=== PATIENT | female | born 1945 | race Caucasian/White ===

== ENCOUNTER 2017-04-24 13:31 | Inpatient (IN) ==
--- NOTE | 2017-04-24 14:06 | Emergency Department Note ---
Chest Pain HPI - General Chief Complaint: Chest Pain Stated Complaint: chest pain Time Seen by Provider: 04/24/17 13:45 Source: patient Mode of arrival: ambulatory Limitations: no limitations - History of Present Illness HPI Narrative: 71-year-old female who is on dialysis had a chronic history of cough for the past 7 months. She has been referred to the respooler as well as computer typesetter that she has pulmonary fibrosis. Complaint is cough is been present for the last 7 months has been having some chest pain which increases with her cough from 1030 to 11:00 this morning. Is scheduled for dialysis at approximately 430 today. They have been pulling off extra fluid as she has had a history of CHF. She states the chest pain is sharp in nature does increase on palpation 1 hurts when one palpates the area. a [id number] history of tobacco - Related Data Home Medications Medication Instructions Recorded Confirmed acetaminophen 500 mg tablet 1,000 mg PO Q6H PRN tab 12/03/14 04/24/17 cholecalciferol (vitamin D3) 1,000 1,000 unit PO QDAY cap 12/03/14 04/24/17 unit capsule cyanocobalamin (vit B-12) ER 1,000 1,000 mcg PO QDAY tab 12/03/14 04/24/17 mcg tablet,extended release sevelamer carbonate 800 mg tablet 800 mg PO TIDAC 06/01/15 04/24/17 calcium acetate 667 mg capsule 667 mg PO TIDCC 30 Days #60 cap 09/09/15 04/24/17 simvastatin 20 mg tablet 20 mg PO HS 05/17/16 04/24/17 Aspirin [Lite Coat Aspirin] 325 mg PO DAILY 04/13/17 04/24/17 Clopidogrel Bisulfate [Plavix] 75 mg PO DAILY 04/13/17 04/24/17 Suvorexant [Belsomra] 10 mg PO HS PRN 04/13/17 04/24/17 Previous Rx's Medication Instructions Recorded fluoxetine 40 mg capsule 40 mg PO QDAY #90 cap 09/09/15 estradiol 0.5 mg tablet 0.5 mg PO QDAY #30 tab 11/01/15 trazodone 100 mg tablet 250 mg PO QHS 90 Days #225 tab 09/11/16 hydromorphone 2 mg tablet 2 mg PO Q8H PRN 10 Days #30 tab 10/27/16 Budesonide [Pulmicort] 0.5 mg NEB Q12 ampul.neb 04/20/17 HYDROmorphone HCL [Dilaudid] 2 mg PO Q8HP PRN #40 tab 04/20/17 Ipratropium/Albuterol [Duoneb] 3 ml NEB Q6H #1 ampul.neb 04/20/17 Pantoprazole [Protonix] 40 mg PO QHS #1 tab 04/20/17 guaiFENesin/DEXTROMETHORPHAN 10 ml PO Q4HP PRN ml 04/20/17 [Robitussin Dm] Allergies Allergy/AdvReac Type Severity Reaction Status Date / Time codeine Allergy Mild Hives Verified 04/20/17 15:47 Oxycodone Allergy Mild Rash Verified 04/20/17 15:47 NSAIDS (Non-Steroidal Allergy Unknown Unknown Verified 04/20/17 15:47 Anti-Inflamma meperidine [From Demerol] AdvReac Mild Itching Verified 04/20/17 15:47 Review of Systems All systems ED: reviewed and negative except as stated. Constitutional: Denies: fever, chills Eyes: Denies: eye pain ENT ED: Denies: ear pain Cardiovascular: Reports: chest pain. Denies: palpitations, dyspnea on exertion Respiratory: Denies: cough, hemoptysis Gastrointestinal: Denies: abdominal pain, nausea Genitourinary: Denies: urgency, dysuria Musculoskeletal: Denies: back pain Integumentary: Denies: rash Neurological: Denies: headache Psychiatric: Denies: anxiety Endocrine: Denies: fatigue Hematological/Lymphatic: Denies: easy bleeding Allergic/Immunologic: Denies: facial swelling Chest Pain PMH - Past Medical History Medical history: Reports: COPD, coronary artery disease, migraine, other (Sleep apnea itching, coronary artery disease, CKD with dialysis, hypertension migraines) Surgical history ED: Reports: JOSE/BSO, tonsillectomy, other (AV fistula small bowel resection) Family history: Reports: other (diabetes fathwer mother hypertension cad) - Social History smoking status: Former smoker (0 pack year hx) Alcohol use: Reports: Rarely Drug use: Reports: none Physical Exam Limitations: no limitations General appearance: alert, anxious Head: atraumatic, normocephalic Eye: Present: normal appearance, PERRL ENT: normal exam, normal oropharynx Neck: Present: normal inspection, full ROM, tenderness (tender on palpation). Absent: trachea midline Chest: Present: normal inspection, symmetric chest wall rise. Absent: tenderness Respiratory: Present: normal lung sounds bilaterally. Absent: respiratory distress, wheezes Cardiovascular: Present: regular rate, normal rhythm. Absent: bradycardia Abdominal: Present: soft, distention, normal bowel sounds. Absent: tenderness, guarding, rebound, rigidity Extremities: Present: normal inspection, full ROM. Absent: tenderness Back: Present: normal inspection, full ROM. Absent: tenderness Neurological: Present: alert, oriented X3, CN II-XII intact Psychiatric: Present: normal affect, normal mood Skin: Present: warm, dry Course Vital Signs Temperature 98.2 F 04/24/17 13:32 Pulse Rate 67 04/24/17 13:32 Respiratory Rate 18 04/24/17 13:32 Blood Pressure 109/77 04/24/17 13:32 Pulse Oximetry (%) 99 04/24/17 13:32 Temperature 98.2 F 04/24/17 13:32 Pulse Rate 66 04/24/17 16:31 Respiratory Rate 21 04/24/17 16:31 Blood Pressure 104/65 04/24/17 16:31 Pulse Oximetry (%) 97 04/24/17 16:31 Chest Pain - MDM Narrative Medical decision making narrative: X-rays reveal bilateral infiltrate. COMPATABLE with pneumonia as read by Dr. Hernandez. dr hammer consulted and dr almanza. pt admitted by Dr Almanza with inpatient dialysis. - Lab Data Result diagrams: 04/24/17 14:42 04/24/17 14:51 Lab Results 04/24/17 04/24/17 04/24/17 Range/Units 14:33 14:34 14:34 WBC (4.5-11.0) K/mcL RBC (4.00-5.20) M/mcL Hgb (12.0-15.0) g/dL Hct (36.0-48.0) % MCV (80.0-100.0) fL MCH (26.0-34.0) pg MCHC (31.0-36.0) g/dL RDW (11.5-14.5) % Plt Count (140-440) K/mcL MPV (7.4-10.4) fL Gran % (38.0-78.0) % Lymph % (Auto) (15.5-49.0) % Carson % (Auto) (1.0-12.0) % Eos % (Auto) (0.0-7.0) % Baso % (Auto) (0.0-2.0) % Gran # (1.8-8.0) K/mcL Lymph # (Auto) (1.5-4.8) K/mcL Carson # (Auto) (0.1-0.9) K/mcL Eos # (Auto) (0.0-0.7) K/mcL Baso # (Auto) (0.0-0.3) K/mcL Total Counted Seg Neutrophils % (38-78) % Band Neutrophils % (0-10) % Lymphocytes % (15-49) % Monocytes % (Manual) (1-12) % Eosinophils % (Manual) (0-7) % Basophils % (Manual) (0-2) % Platelet Estimate (NORMAL) RBC Morphology (NORMAL) Anisocytosis (NONE SEEN) Macrocytosis (NONE SEEN) VBG Lactic Acid 0.9 (0.5-2.2) mmol/L Sodium Not Reportable Potassium Not Reportable Chloride Not Reportable Carbon Dioxide Not Reportable Anion Gap Not Reportable BUN Not Reportable Creatinine Not Reportable GFR Calculation Not Reportable Glucose Not Reportable Calcium Not Reportable Total Bilirubin Not Reportable AST Not Reportable ALT Not Reportable Alkaline Phosphatase Not Reportable Total Creatine Kinase Not Reportable CK-MB (CK-2) Not Reportable Myoglobin Not Reportable Troponin T TNP NT-Pro-B Natriuret Pep Not Reportable Total Protein Not Reportable Albumin Not Reportable Globulin Not Reportable Albumin/Globulin Ratio Not Reportable TSH Not Reportable 04/24/17 04/24/17 04/24/17 Range/Units 14:42 14:42 14:51 WBC 11.2 H (4.5-11.0) K/mcL RBC 3.84 L (4.00-5.20) M/mcL Hgb 12.9 (12.0-15.0) g/dL Hct 39.3 (36.0-48.0) % MCV 102.2 H (80.0-100.0) fL MCH 33.6 (26.0-34.0) pg MCHC 32.9 (31.0-36.0) g/dL RDW 19.9 H (11.5-14.5) % Plt Count 153 (140-440) K/mcL MPV 10.8 H (7.4-10.4) fL Gran % 72.2 (38.0-78.0) % Lymph % (Auto) 12.1 L (15.5-49.0) % Carson % (Auto) 13.6 H (1.0-12.0) % Eos % (Auto) 1.3 (0.0-7.0) % Baso % (Auto) 0.8 (0.0-2.0) % Gran # 8.1 H (1.8-8.0) K/mcL Lymph # (Auto) 1.4 L (1.5-4.8) K/mcL Carson # (Auto) 1.5 H (0.1-0.9) K/mcL Eos # (Auto) 0.1 (0.0-0.7) K/mcL Baso # (Auto) 0.1 (0.0-0.3) K/mcL Total Counted 100 Seg Neutrophils % 76 (38-78) % Band Neutrophils % 1 (0-10) % Lymphocytes % 10 L (15-49) % Monocytes % (Manual) 10 (1-12) % Eosinophils % (Manual) 1 (0-7) % Basophils % (Manual) 2 (0-2) % Platelet Estimate Normal (NORMAL) RBC Morphology Abnorm A (NORMAL) Anisocytosis 1+ A (NONE SEEN) Macrocytosis 1+ A (NONE SEEN) VBG Lactic Acid (0.5-2.2) mmol/L Sodium 132 L Potassium 5.4 H Chloride 85 L Carbon Dioxide 22 Anion Gap 25.0 H BUN 64 H Creatinine 7.2 H* GFR Calculation 5 Glucose 109 H Calcium 9.8 Total Bilirubin 0.4 AST 11 ALT 9 Alkaline Phosphatase 92 Total Creatine Kinase 13 L CK-MB (CK-2) 2.8 Myoglobin 95 H Troponin T NT-Pro-B Natriuret Pep 4122.0 H Total Protein 7.4 Albumin 3.9 Globulin 3.5 Albumin/Globulin Ratio 1.1 TSH 2.12 04/24/17 Range/Units 14:51 WBC (4.5-11.0) K/mcL RBC (4.00-5.20) M/mcL Hgb (12.0-15.0) g/dL Hct (36.0-48.0) % MCV (80.0-100.0) fL MCH (26.0-34.0) pg MCHC (31.0-36.0) g/dL RDW (11.5-14.5) % Plt Count (140-440) K/mcL MPV (7.4-10.4) fL Gran % (38.0-78.0) % Lymph % (Auto) (15.5-49.0) % Carson % (Auto) (1.0-12.0) % Eos % (Auto) (0.0-7.0) % Baso % (Auto) (0.0-2.0) % Gran # (1.8-8.0) K/mcL Lymph # (Auto) (1.5-4.8) K/mcL Carson # (Auto) (0.1-0.9) K/mcL Eos # (Auto) (0.0-0.7) K/mcL Baso # (Auto) (0.0-0.3) K/mcL Total Counted Seg Neutrophils % (38-78) % Band Neutrophils % (0-10) % Lymphocytes % (15-49) % Monocytes % (Manual) (1-12) % Eosinophils % (Manual) (0-7) % Basophils % (Manual) (0-2) % Platelet Estimate (NORMAL) RBC Morphology (NORMAL) Anisocytosis (NONE SEEN) Macrocytosis (NONE SEEN) VBG Lactic Acid (0.5-2.2) mmol/L Sodium Potassium Chloride Carbon Dioxide Anion Gap BUN Creatinine GFR Calculation Glucose Calcium Total Bilirubin AST ALT Alkaline Phosphatase Total Creatine Kinase CK-MB (CK-2) Myoglobin Troponin T 0.06 H* NT-Pro-B Natriuret Pep Total Protein Albumin Globulin Albumin/Globulin Ratio TSH Disposition Pt seen by AIRCRAFT BODY REPAIRER/PA only: No Clinical Impression: Pneumonia Qualifiers: Laterality: bilateral Lung location: lower lobe of lung Disposition: Xfer As Inpt ([facility]) Condition: Fair Referrals: Maribel Jaimes, ALEXANDR, SENIOR ACCOUNT EXECUTIVE [Primary Care Provider] - Time of Disposition: 17:06
--- NOTE | 2017-04-24 14:11 | XRay Report ---
INDICATION: Chest pain TECHNIQUE: AP chest x-ray,portable semierect COMPARISON: Chest x-rays dated 04/16/2017, 04/13/2017, 04/06/2017 FINDINGS:Previous reverse shoulder arthroplasty Mildly elevated right hemidiaphragm. This is unchanged. Bilateral, bibasilar infiltrates. Appearance is consistent with pneumonia. Follow-up PA and lateral chest x-rays recommended. Upper lungs are negative. Heart size and vascularity are normal. No pulmonary edema. No pulmonary congestion. Incidental note is made of barium within the colon. Patient underwent a barium swallow on 04/18/2017 IMPRESSION: 1. Mild bibasilar infiltrates consistent with pneumonia. Follow-up PA and lateral chest x-rays recommended 2. Mildly elevated right hemidiaphragm, chronic Interpreted and Authenticated by: Fortino Hernandez 04/24/17
[2017-04-24] MEDS ORDERED: LEVOFLOXACIN 500 MG/100 ML BAG IV ONE (14:43)
[2017-04-24] MEDS ORDERED: cefTRIAXone 1 GM VIAL IV SCH (14:45)
[2017-04-24 15:39] LABS: Basophils # (Auto) 0.1 K/mcL (0.0-0.3); Basophils % (Auto) 0.8 % (0.0-2.0); Eosinophils # (Auto) 0.1 K/mcL (0.0-0.7); Eosinophils % (Auto) 1.3 % (0.0-7.0); Granulocytes % (Auto) 72.2 % (38.0-78.0); Lymphocytes # (Auto) 1.4 K/mcL (1.5-4.8); Lymphocytes % (Auto) 12.1 % (15.5-49.0); Mean Cell Volume 102.2 fL (80.0-100.0); Mean Corpuscular HGB Conc 32.9 g/dL (31.0-36.0); Mean Corpuscular Hemoglobin 33.6 pg (26.0-34.0); Monocytes # (Auto) 1.5 K/mcL (0.1-0.9); Monocytes % (Auto) 13.6 % (1.0-12.0); Platelet Count 153 K/mcL (140-440); RBC 3.84 M/mcL (4.00-5.20); Red Cell Distribution Width 19.9 % (11.5-14.5)
[2017-04-24 16:09] LABS: Creatine Kinase MB 2.8 ng/ml (0-2.9); Myoglobin 95 ng/ml (25-58)
[2017-04-24 16:14] LABS: Anisocytosis 1+ (NONE SEEN); Band Neutrophils % 1 % (0-10); Basophils % (Manual) 2 % (0-2); Eosinophils % (Manual) 1 % (0-7); Lymphocytes % 10 % (15-49); Macrocytosis 1+ (NONE SEEN); Monocytes % (Manual) 10 % (1-12); Platelet Estimate NORMAL (NORMAL); RBC Morphology ABNORM (NORMAL); Segmented Neutrophils % 76 % (38-78)
[2017-04-24 16:23] LABS: ALT/SGPT 9 U/l (0-40); Albumin 3.9 gm/dL (3.2-5.2); Albumin/Globulin Ratio 1.1 (1.0-2.3); Alkaline Phosphatase 92 U/L (39-117); Blood Urea Nitrogen 64 mg/dl (8-23); Creatine Kinase 13 IU/L (24-170)
--- NOTE | 2017-04-24 16:58 | XRay Report ---
INDICATION: Abnormal chest x-ray TECHNIQUE: PA and lateral upright chest x-ray COMPARISON: Previous AP portable chest x-ray dated 04/24/2017. Previous PA and lateral chest x-ray dated 04/16/2017 FINDINGS:Persistent elevation right hemidiaphragm. Bilateral lower lobe parenchymal density. Appearance is consistent with pneumonia. Follow-up radiographs recommended to document resolution. Mid and upper lungs are negative. Heart size and vascularity are normal. No pulmonary edema or pulmonary congestion. No significant pleural effusion. IMPRESSION: Bilateral lower lobe volume loss or infiltrate. Appearance is consistent with pneumonia. Interpreted and Authenticated by: Fortino Hernandez 04/24/17
--- NOTE | 2017-04-24 17:51 | Internal Med History&Physical ---
Medical - H&P: HPI Patient information: Note initiated : 04/24/17 at 5:43 pm Service Date, if different from initiated Date: [] Patient: Naz Joseph 71 y/o F admitted on for Chest pain. Chief Complaint: [] History of present illness: Ms. Joseph is a 71 year old Female with esrd, on hd, with chr cough, presents to the er today from rehab with complaints of chest pain which started approx 11 am, no triggering factor, pain retrosternal, sharp, severe, non radiating, associated with some nausea, but no other complaints. She has chr cough going on for last 7 months and is following with pulmonary . The patient was recently admitted to the hospital for chf exacerbation and fluid removal. It was thought that her cough is related to her aspiration. She was advised to See GI it seems. The patient otherwise has no other issues, notes it was very uncomfortable due to the chest pain which was easing by the time I evaluated her. The patient lab showed mild leucocytosis, CXR shows bibasilar pna, cxr does not show any congestion. Patient labs show some low sodium and K of 5.4, EKG shows sinus rhythm, poor r wave progression, possible YONNY, t wave flattening in inf lat leads. She was admitted to the hospital with diagnosis of HCAP Pneumonia. All systems: reviewed and no additional remarkable complaints except as stated ( as per HPI) Medical - H&P: PMH Medical history: Medical History (Last Reviewed 04/20/17 @ 16:11 by Rodrigo Coleman MD) Fluid overload (Acute) Pneumonia (Acute) Aspiration into airway (Chronic) Pulmonary fibrosis (Chronic) Aortic valve sclerosis (Chronic) Fatigue (Acute) Weakness (Acute) Dyspnea (Acute) COPD (chronic obstructive pulmonary disease) (Chronic) Cough (Chronic) Obstructive sleep apnea (Chronic) Fracture, femur neck (Resolved 09/24/15) Hematoma and contusion (Resolved) Muscle cramps (Resolved) Cyst of Bartholin's gland duct (Resolved) Hemorrhage of arteriovenous fistula (Resolved) Hematoma (Chronic) Pericarditis (Chronic) Hypertension (Chronic) Chest pain (Chronic) Coronary artery disease involving [place] coronary artery (Chronic) Dependence on renal dialysis (Chronic) End stage renal disease (Chronic) History of echocardiogram (Chronic 06/04/15) Pericardial effusion (Chronic) Insomnia (Chronic) Vitamin B 12 deficiency (Chronic) Venous insufficiency (Chronic 01/13/14) UTI (urinary tract infection) (Chronic) Tobacco use (Resolved) 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) Rotator cuff tear (Chronic 04/09/14) Rotator cuff arthropathy (Chronic 04/09/14) Renal insufficiency (Chronic 11/03/14) Renal failure (Chronic) Proteinuria (Chronic 07/14/13) Osteoporosis (Chronic) Osteoarthritis (Chronic 10/07/04) Obstructive uropathy (Chronic 11/10/14) Nephrolithiasis (Chronic 07/14/13) Systolic murmur (Chronic) Migraine (Chronic) Metabolic acidosis (Chronic 07/14/13) Joint pain (Chronic) Impaired fasting glucose (Chronic) Hypertensive renal disease (Chronic 07/14/13) Hypertension, essential (Chronic) Hemorrhoids, internal (Chronic 11/03/13) Gout (Chronic 07/14/13) Fibromyalgia (Chronic) Edema (Chronic 11/19/14) Diarrhea (Chronic) Depression (Chronic) Degenerative arthritis (Chronic) Deep vein thrombosis (Chronic) Chronic kidney disease, stage IV (severe) (Chronic 07/14/13) Carpal tunnel syndrome (Chronic) Bone spur (Chronic 11/12/02) Anxiety (Chronic) Blood clot associated with vein wall inflammation (Resolved) Fecal incontinence (Resolved 09/19/13) Tendonitis (Resolved 09/08/12) Surgical history: Past Surgical History (Last Reviewed 04/20/17 @ 16:11 by Rodrigo Coleman MD) Arteriovenous fistula, acquired (Chronic) History of bariatric surgery (Chronic) History of resection of small bowel (Chronic 03/23/15) History of lithotripsy (Acute 09/21/15) History of gastrointestinal surgery (Chronic) History of rectal surgery (Chronic) History of surgery (Chronic) Hx of appendectomy (Chronic) Hx of cataract surgery (Chronic) Hx of shoulder surgery (Chronic) Hx of tonsillectomy (Chronic) S/P JOSE-BSO (Chronic) S/P nerve repair (Chronic) History of abdominal surgery (Resolved 11/03/14) History of adenoidectomy (Resolved) History of cataract surgery (Resolved) History of colonoscopy (Resolved 11/03/13) History of cystoscopy (Resolved 04/20/11) History of hammer toe correction (Resolved) History of hemorrhoidectomy (Resolved) History of hysterectomy (Resolved) History of intravenous pyelogram (Resolved 05/19/11) History of lithotripsy (Resolved 01/12/09) History of oophorectomy (Resolved) History of tonsillectomy (Resolved) History of ureter repair (Resolved 09/02/12) History of ureter stent (Resolved 11/29/08) Status post bunionectomy (Resolved) Pertinent family history: Family History (Last Reviewed 04/20/17 @ 16:11 by Rodrigo Coleman MD) Father Hemorrhage due to ruptured congenital cerebral aneurysm Type 2 diabetes mellitus Family history of diabetes mellitus Family history of arthritis Essential hypertension Cerebrovascular accident Sister Type 2 diabetes mellitus Mother Family history of arthritis Essential hypertension Acute myocardial infarction Unknown Family history of coronary artery disease Osteoporosis Medical - H&P: Meds Home Medications Medication Instructions Recorded Confirmed Type acetaminophen 500 mg tablet 1,000 mg PO Q6H PRN tab 12/03/14 04/24/17 History cholecalciferol (vitamin D3) 1,000 1,000 unit PO QDAY cap 12/03/14 04/24/17 History unit capsule cyanocobalamin (vit B-12) ER 1,000 1,000 mcg PO QDAY tab 12/03/14 04/24/17 History mcg tablet,extended release sevelamer carbonate 800 mg tablet 800 mg PO TIDAC 06/01/15 04/24/17 History calcium acetate 667 mg capsule 667 mg PO TIDCC 30 Days #60 cap 09/09/15 History fluoxetine 40 mg capsule 40 mg PO QDAY #90 cap 09/09/15 04/24/17 Rx estradiol 0.5 mg tablet 0.5 mg PO QDAY #30 tab 11/01/15 04/24/17 Rx simvastatin 20 mg tablet 20 mg PO HS 05/17/16 04/24/17 History trazodone 100 mg tablet 250 mg PO QHS 90 Days #225 tab 09/11/16 04/24/17 Rx hydromorphone 2 mg tablet 2 mg PO Q8H PRN 10 Days #30 tab 10/27/16 04/24/17 Rx Aspirin [Lite Coat Aspirin] 325 mg PO DAILY 04/13/17 04/24/17 History Clopidogrel Bisulfate [Plavix] 75 mg PO DAILY 04/13/17 04/24/17 History Suvorexant [Belsomra] 10 mg PO HS PRN 04/13/17 04/24/17 History Budesonide [Pulmicort] 0.5 mg NEB Q12 ampul.neb 04/20/17 04/24/17 Rx HYDROmorphone HCL [Dilaudid] 2 mg PO Q8HP PRN #40 tab 04/20/17 04/24/17 Rx Ipratropium/Albuterol [Duoneb] 3 ml NEB Q6H #1 ampul.neb 04/20/17 04/24/17 Rx Pantoprazole [Protonix] 40 mg PO QHS #1 tab 04/20/17 04/24/17 Rx guaiFENesin/DEXTROMETHORPHAN 10 ml PO Q4HP PRN ml 04/20/17 04/24/17 Rx [Robitussin Dm] Allergies Allergy/AdvReac Type Severity Reaction Status Date / Time codeine Allergy Mild Hives Verified 04/20/17 15:47 Oxycodone Allergy Mild Rash Verified 04/20/17 15:47 NSAIDS (Non-Steroidal Allergy Unknown Unknown Verified 04/20/17 15:47 Anti-Inflamma meperidine [From Demerol] AdvReac Mild Itching Verified 04/20/17 15:47 Medical - H&P: Exam - Constitutional Vitals: Temp Pulse Resp BP Pulse Ox 98.2 F 66 21 104/65 97 04/24/17 13:32 04/24/17 16:31 04/24/17 16:31 04/24/17 16:31 04/24/17 16:31 Exam: GENERAL: The patient is a well-developed, well-nourished in no apparent distress. Is alert and oriented x3. VITAL SIGNS: Reviewed and as noted elsewhere. HEENT: Head is normocephalic and atraumatic. Extraocular muscles are intact. Pupils are equal, round, and reactive to light. Nares appeared normal. Mouth appears any without lesions. Mucous membranes are moist. NECK: Normal to inspection, Supple, No lymphadenopathy or thyromegaly. LUNGS: Air entry equal on both sides, zack prolonged exp phase, zack coarse breath sounds no crackles. No accessory muscles of respiration HEART: Regular rate and rhythm normal, S1 and S2 heard, no Gallop, S3 or Rub Noted, No Gross murmur heard. distant heart sounds ABDOMEN: Soft, nontender, and nondistended. Positive bowel sounds. No hepatosplenomegaly was noted. EXTREMITIES: No cyanosis, clubbing, rash, lesions , edema ++ NEUROLOGIC: Cranial nerves II through XII are grossly intact. Motor and Sensory System Grossly Intact PSYCHIATRIC: Normal affect, Normal Mood. Appropriate Behavior. SKIN: No ulceration or wounds noted, No jaundice, No rash noted. Medical - H&P: Reslt - Labs CBC & Chem 7: 04/24/17 14:42 04/24/17 14:51 Labs: Short CBC 04/24/17 Range/Units 14:42 WBC 11.2 H (4.5-11.0) K/mcL Hgb 12.9 (12.0-15.0) g/dL Hct 39.3 (36.0-48.0) % Plt Count 153 (140-440) K/mcL BMP 04/24/17 04/24/17 14:34 14:51 Sodium Not Reportable 132 L Potassium Not Reportable 5.4 H Chloride Not Reportable 85 L Carbon Dioxide Not Reportable 22 BUN Not Reportable 64 H Creatinine Not Reportable 7.2 H* Glucose Not Reportable 109 H Calcium Not Reportable 9.8 Cardiac Enzymes 04/24/17 04/24/17 04/24/17 Range/Units 14:34 14:34 14:51 Total Creatine Kinase Not Reportable 13 L CK-MB (CK-2) Not Reportable 2.8 Troponin T TNP 04/24/17 Range/Units 14:51 Total Creatine Kinase CK-MB (CK-2) Troponin T 0.06 H* Liver Function 04/24/17 04/24/17 Range/Units 14:34 14:51 Total Bilirubin Not Reportable 0.4 AST Not Reportable 11 ALT Not Reportable 9 Alkaline Phosphatase Not Reportable 92 Albumin Not Reportable 3.9 Medical - H&P: A/P - Narrative A/P Narrative: A/P health care acquired Pneumonia ESRd h/o mild Pericardial Effusion Restrictive Lung disease Chronic Cough Adrenal Mass Fibromyaltia B12 def Muscle Cramps Hyperkalemia Plan Admit to floor IV vanco, cefepime and flagyl for health care pna, flagyl added for possible aspiration patient to get HD in AM, Treat elevated K with one dose of kayexalate REsume home dosing of duonebs, and budesonide on pantoprazole continue same repeat troponin in AM, for chest pain, she has chronically elevated troponin. She has neg cardiac workup around 6 months ago, so chest pain from cardiac etiology is unlikely Resume home meds as tolerated Nephrology consulted dvt enoxaparin, scd diet renal DNR code status. Social History - Social History household members: spouse housing: house marital status: occupational status: retired - Dietary Habits well-balanced diet: daily or most days during the past year weight has: remained stable - Exercise physical activity: none - Tobacco smoking status: Former smoker (0 pack year hx) - Quit Details quit date: 06/18/04 pack-years: 40 - Alcohol alcohol intake frequency: does not drink - Substance use substance use type: does not use - Home Safety working smoke detector in home: Yes
[2017-04-24] MEDS ORDERED: metroNIDAZOLE 500 MG/100 ML BAG IV SCH (18:00)
[2017-04-24] MEDS ORDERED: ONDANSETRON 4 MG/2 ML VIAL IV PRN (18:46)
[2017-04-24] MEDS ORDERED: MAGNESIUM HYDROXIDE 30 ML ORAL.SUSP PO PRN (18:46)
[2017-04-24] MEDS ORDERED: guaiFENesin/DEXTROMETHORPHAN ORAL SOL PO PRN (18:46)
[2017-04-24] MEDS ORDERED: VANCOMYCIN 1,500 MG in 0.9 % SODIUM CHLORIDE 500 ML IV ONE (18:46)
[2017-04-24] MEDS ORDERED: ACETAMINOPHEN 325 MG TABLET PO PRN (18:46)
[2017-04-24] MEDS ORDERED: VANCOMYCIN PER PHARMACY IV SCH (18:46)
[2017-04-24] MEDS ORDERED: NALOXONE HCL 0.4 MG/ML VIAL IV PRN (18:46)
[2017-04-24] MEDS ORDERED: SODIUM POLYSTYRENE SULFONATE 15 GM/60 ML SUSPENSION PO ONE (18:46)
[2017-04-24] MEDS ORDERED: Suvorexant [Belsomra] 10 MG PO PRN (19:15)
[2017-04-24] MEDS ORDERED: VANCOMYCIN 500 MG VIAL ONE (19:19)
[2017-04-24] MEDS: CEFEPIME 1 GM VIAL IV SCH (19:38)
[2017-04-24] MEDS: PANTOPRAZOLE 40 MG TABLET PO SCH (19:39)
[2017-04-24] MEDS: SIMVASTATIN 20 MG TABLET PO SCH (19:39)
[2017-04-24] MEDS: DOCUSATE SODIUM 100 MG CAPSULE PO SCH (19:39)
[2017-04-24] MEDS: IPRATROPIUM/ALBUTEROL 3 ML AMPUL.NEB NEB SCH ×2 (20:02→23:18)
[2017-04-24] MEDS: BUDESONIDE 0.5 MG/2 ML AMPUL.NEB NEB SCH (20:02)
--- NOTE | 2017-04-24 20:43 | Nephrology Consult Note ---
History of Present Illness - Reason for Consult Patient information: Note initiated : 04/24/17 at 8:39 pm Service Date, if different from initiated Date: [] Patient: Naz Joseph a 71 y/o F admitted on 04/24/17 for Chest pain. Chief Complaint: [] Consult date: 04/24/17 end stage renal disease Requesting physician: Hiram Galvin - Chief Complaint chest pain - History of Present Illness Ms Joseph is a 71 y/o pleasant white female with PMH of HTN, ESRD on HD, and other medical issues who presented to the ED today with c/o retrosternal CP. Patient was diagnosed with PNA on her CXR and hence she is been hospitalised for HCAP pneumonia Patient has h/o recent hospitalisation for fluid overload, chronic cough Her fluid status improved daily dialysis. Her chronic cough was thought be sec to aspiration. She was discharged to a SNF for rehab and she was doing fine until this afternoon when she started having severe retrosternal CP associated with nausea and feeling of profound weakness. She denies fever, chills. She denies any change in the nature of her cough or phlegm No diarrhea No dizziness No LE swelling Patient gets her dialysis TTS, she was due to come to her routine outpatient dialysis today Review of Systems All systems PM: reviewed and no additional remarkable complaints except as stated (in HPI) Past History Past medical history: esrd ON hd anemia OF ckd Renal osteodystrophy severe osteoporosis nephrolithiasis COPD chronic cough h/o pericardial effusion Past surgical history: h/o gastric bypass, then needed reversal h/o AVF h/o TCC Lithotripsy h/o hysterectomy/oopherectomy h/o appendectomy h/o cardiac cath Past family history: not pertinent to this admission Past social history: lives with her ex smoker, currently no addictions Medications and Allergies Home Medications Medication Instructions Recorded Confirmed Type acetaminophen 500 mg tablet 1,000 mg PO Q6H PRN tab 12/03/14 04/24/17 History cholecalciferol (vitamin D3) 1,000 1,000 unit PO QDAY cap 12/03/14 04/24/17 History unit capsule cyanocobalamin (vit B-12) ER 1,000 1,000 mcg PO QDAY tab 12/03/14 04/24/17 History mcg tablet,extended release sevelamer carbonate 800 mg tablet 800 mg PO TIDAC 06/01/15 04/24/17 History calcium acetate 667 mg capsule 667 mg PO TIDCC 30 Days #60 cap 09/09/15 History fluoxetine 40 mg capsule 40 mg PO QDAY #90 cap 09/09/15 04/24/17 Rx estradiol 0.5 mg tablet 0.5 mg PO QDAY #30 tab 11/01/15 04/24/17 Rx simvastatin 20 mg tablet 20 mg PO HS 05/17/16 04/24/17 History trazodone 100 mg tablet 250 mg PO QHS 90 Days #225 tab 09/11/16 04/24/17 Rx hydromorphone 2 mg tablet 2 mg PO Q8H PRN 10 Days #30 tab 10/27/16 04/24/17 Rx Aspirin [Lite Coat Aspirin] 325 mg PO DAILY 04/13/17 04/24/17 History Clopidogrel Bisulfate [Plavix] 75 mg PO DAILY 04/13/17 04/24/17 History Budesonide [Pulmicort] 0.5 mg NEB Q12 ampul.neb 04/20/17 04/24/17 Rx HYDROmorphone HCL [Dilaudid] 2 mg PO Q8HP PRN #40 tab 04/20/17 04/24/17 Rx Ipratropium/Albuterol [Duoneb] 3 ml NEB Q6H #1 ampul.neb 04/20/17 04/24/17 Rx Pantoprazole [Protonix] 40 mg PO QHS #1 tab 04/20/17 04/24/17 Rx guaiFENesin/DEXTROMETHORPHAN 10 ml PO Q4HP PRN ml 04/20/17 04/24/17 Rx [Robitussin Dm] suvorexant 10 mg tablet 10 mg PO HS PRN #30 tab 04/24/17 Rx Allergies Allergy/AdvReac Type Severity Reaction Status Date / Time codeine Allergy Mild Hives Verified 04/20/17 15:47 Oxycodone Allergy Mild Rash Verified 04/20/17 15:47 NSAIDS (Non-Steroidal Allergy Unknown Unknown Verified 04/20/17 15:47 Anti-Inflamma meperidine [From Demerol] AdvReac Mild Itching Verified 04/20/17 15:47 Exam - Vital Signs Vital signs: Temp Pulse Resp BP Pulse Ox 98.2 F 66 18 112/65 93 04/24/17 18:49 04/24/17 20:09 04/24/17 20:09 04/24/17 18:49 04/24/17 20:03 - General Appearance General appearance: appears started age, chronically ill EENT: mucous membranes moist Neck: no JVD Respiratory: rales, rhonchi Cardiology: no rub, no edema, normal S1, normal S2 Gastrointestinal: no tenderness, no guarding Integumentary: no rash, chronic venous stasis Neurologic: no asterixis, alert and oriented x3 Musculoskeletal: no erythema, no clubbing Psychiatric: mood/affect appropriate Results - Lab Results 04/24/17 14:42 04/24/17 14:51 Most recent lab results Calcium 9.8 mg/dl (8.6-10.4) 04/24/17 14:51 Assessment and Plan (1) ESRD (end stage renal disease) on dialysis I do not see an emergent need for dialysis tonight I will plan for this early tomorrow am She does have mild hyperkalemia which will be treated medically If there is any change in her clinical status please inform please dose meds to dialysis I will follow her during her hospital stay aprreciate hospitalist help in managing this patient Status: Acute (2) Pneumonia Status: Acute Qualifiers: Laterality: bilateral Lung location: lower lobe of lung
[2017-04-24] MEDS ORDERED: traZODone HCL 100 MG TABLET PO SCH (21:00)
[2017-04-24] MEDS: HYDROmorphone 2 MG TABLET PO PRN (21:34)
[2017-04-24] MEDS: 0.9 % SODIUM CHLORIDE 10 ML SYRINGE IV SCH (22:43)
[2017-04-25] MEDS: IPRATROPIUM/ALBUTEROL 3 ML AMPUL.NEB NEB SCH ×6 (03:05→23:10)
[2017-04-25 06:03] LABS: Basophils # (Auto) 0 K/mcL (0.0-0.3); Basophils % (Auto) 0.5 % (0.0-2.0); Eosinophils # (Auto) 0.2 K/mcL (0.0-0.7); Eosinophils % (Auto) 1.8 % (0.0-7.0); Granulocytes % (Auto) 68.9 % (38.0-78.0); Lymphocytes # (Auto) 1.4 K/mcL (1.5-4.8); Lymphocytes % (Auto) 16.6 % (15.5-49.0); Mean Cell Volume 102.3 fL (80.0-100.0); Mean Corpuscular HGB Conc 32.9 g/dL (31.0-36.0); Mean Corpuscular Hemoglobin 33.7 pg (26.0-34.0); Monocytes % (Auto) 12.2 % (1.0-12.0); Platelet Count 133 K/mcL (140-440); RBC 3.64 M/mcL (4.00-5.20); Red Cell Distribution Width 19.2 % (11.5-14.5)
[2017-04-25 06:27] LABS: ALT/SGPT 7 U/l (0-40); Albumin 3.7 gm/dL (3.2-5.2); Albumin/Globulin Ratio 1.2 (1.0-2.3); Alkaline Phosphatase 75 U/L (39-117); Bilirubin,Direct < 0.2 mg/dL (0.0-0.3); Blood Urea Nitrogen 70 mg/dl (8-23); Gamma Glutamyl Transpeptidase 20 U/L (5-36); Magnesium 2.4 mg/dL (1.6-2.5); Uric Acid 8.5 mg/dL (2.5-8.0)
[2017-04-25] MEDS: 0.9 % SODIUM CHLORIDE 10 ML SYRINGE IV SCH ×4 (06:34→22:33)
[2017-04-25] MEDS: metroNIDAZOLE 500 MG/100 ML BAG IV SCH ×3 (06:34→22:32)
[2017-04-25] MEDS: DOCUSATE SODIUM 100 MG CAPSULE PO SCH ×2 (07:03→22:31)
[2017-04-25] MEDS ORDERED: LOPERAMIDE 2 MG CAPSULE PO PRN (07:52)
[2017-04-25] MEDS ORDERED: MIDODRINE 5 MG TABLET PO ONE (07:52)
[2017-04-25] MEDS: CALCIUM ACETATE 667 MG CAPSULE PO SCH ×3 (08:05→17:14)
[2017-04-25] MEDS: SEVELAMER 800 MG TABLET PO SCH ×3 (08:05→17:14)
[2017-04-25] MEDS: HYDROmorphone 2 MG TABLET PO PRN ×2 (08:24→22:32)
[2017-04-25] MEDS: BUDESONIDE 0.5 MG/2 ML AMPUL.NEB NEB SCH ×2 (08:54→20:38)
[2017-04-25] MEDS: ESTRADIOL 1 MG TABLET PO SCH (13:56)
[2017-04-25] MEDS: ASPIRIN 325 MG ENTERIC COATED TABLET PO SCH (13:56)
[2017-04-25] MEDS: FLUoxetine HCL 20 MG CAPSULE PO SCH (13:56)
[2017-04-25] MEDS: ENOXAPARIN 40 MG/0.4 ML SYRINGE SQ SCH (13:56)
[2017-04-25] MEDS: CLOPIDOGREL 75 MG TABLET PO SCH (13:56)
[2017-04-25] MEDS: VITAMIN D3 1,000 UNIT TABLET PO SCH (13:56)
[2017-04-25] MEDS: CYANOCOBALAMIN (VITAMIN B-12) 500 MCG TABLET PO SCH (13:56)
--- NOTE | 2017-04-25 14:35 | Internal Med Progress Note ---
Medical - PN: Subj Patient information: Note initiated : 04/25/17 at 2:32 pm Service Date, if different from initiated Date: [] Patient: Naz Joseph 71 y/o F admitted on 04/24/17 for Chest Pain/ Pneumonia. Chief Complaint: [] Interval history: Ms. Joseph is a 71 year old Female with esrd, on hd, with chr cough, presents to the er today from rehab with complaints of chest pain which started approx 11 am, no triggering factor, pain retrosternal, sharp, severe, non radiating, associated with some nausea, but no other complaints. She has chr cough going on for last 7 months and is following with pulmonary . The patient was recently admitted to the hospital for chf exacerbation and fluid removal. It was thought that her cough is related to her aspiration. She was advised to See GI it seems. The patient otherwise has no other issues, notes it was very uncomfortable due to the chest pain which was easing by the time I evaluated her. The patient lab showed mild leucocytosis, CXR shows bibasilar pna, cxr does not show any congestion. Patient labs show some low sodium and K of 5.4, EKG shows sinus rhythm, poor r wave progression, possible YONNY, t wave flattening in inf lat leads. She was admitted to the hospital with diagnosis of HCAP Pneumonia. April 25 Patient seen examined, no acute overnight events, Pt on HD on my eval doing well , had some nausea vomting and diarrhea overnight. Cdiff ordered Labs show improvement in wbc count, K still high, but pt on HD Breathing better, cp and cough better no other complaints reported Pertinent ROS: Denies headache, dizziness Denies chest pain, palpitations Present cough and shortness of breath Denies abdominal pain, present nausea and vomiting. Additional PMFSH (Level 3 Only): Medical History (Last Reviewed 04/20/17 @ 16:11 by Rodrigo Coleman MD) Fluid overload (Acute) Pneumonia (Acute) ESRD (end stage renal disease) on dialysis (Acute) Aspiration into airway (Chronic) Pulmonary fibrosis (Chronic) Aortic valve sclerosis (Chronic) Fatigue (Acute) Weakness (Acute) Dyspnea (Acute) COPD (chronic obstructive pulmonary disease) (Chronic) Cough (Chronic) Obstructive sleep apnea (Chronic) Fracture, femur neck (Resolved 09/24/15) Hematoma and contusion (Resolved) Muscle cramps (Resolved) Cyst of Bartholin's gland duct (Resolved) Hemorrhage of arteriovenous fistula (Resolved) Hematoma (Chronic) Pericarditis (Chronic) Hypertension (Chronic) Chest pain (Chronic) Coronary artery disease involving [place] coronary artery (Chronic) Dependence on renal dialysis (Chronic) End stage renal disease (Chronic) History of echocardiogram (Chronic 06/04/15) Pericardial effusion (Chronic) Insomnia (Chronic) Vitamin B 12 deficiency (Chronic) Venous insufficiency (Chronic 01/13/14) UTI (urinary tract infection) (Chronic) Tobacco use (Resolved) 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) Rotator cuff tear (Chronic 04/09/14) Rotator cuff arthropathy (Chronic 04/09/14) Renal insufficiency (Chronic 11/03/14) Renal failure (Chronic) Proteinuria (Chronic 07/14/13) Osteoporosis (Chronic) Osteoarthritis (Chronic 10/07/04) Obstructive uropathy (Chronic 11/10/14) Nephrolithiasis (Chronic 07/14/13) Systolic murmur (Chronic) Migraine (Chronic) Metabolic acidosis (Chronic 07/14/13) Joint pain (Chronic) Impaired fasting glucose (Chronic) Hypertensive renal disease (Chronic 07/14/13) Hypertension, essential (Chronic) Hemorrhoids, internal (Chronic 11/03/13) Gout (Chronic 07/14/13) Fibromyalgia (Chronic) Edema (Chronic 11/19/14) Diarrhea (Chronic) Depression (Chronic) Degenerative arthritis (Chronic) Deep vein thrombosis (Chronic) Chronic kidney disease, stage IV (severe) (Chronic 07/14/13) Carpal tunnel syndrome (Chronic) Bone spur (Chronic 11/12/02) Anxiety (Chronic) Blood clot associated with vein wall inflammation (Resolved) Fecal incontinence (Resolved 09/19/13) Tendonitis (Resolved 09/08/12) - Constitutional Vitals: Vital Signs Temp Pulse Resp BP Pulse Ox 97.5 F 81 16 90/61 96 04/25/17 12:33 04/25/17 13:21 04/25/17 08:58 04/25/17 13:21 04/25/17 12:00 Period Temp Pulse Resp BP Sys/Millan Pulse Ox Last 24 Hr 96.7 F-98.2 F 66-86 12- 90-113/61-78 92-98 Intake and Output 04/25/17 04/25/1717 05:59 13:59 21:59 Intake Total 550 / 550 100 / 100 Balance 550 / 550 100 / 100 Weight 178 lb Patient Weight 04/26/17 05:59 Weight 178 lb Intake & Output: Intake & Output 04/25/17 04/25/17 04/25/17 05:59 13:59 21:59 Intake Total 550 / 550 100 / 100 Balance 550 / 550 100 / 100 Weight 178 lb Intake: IV 500 / 500 100 / 100 Oral 50 / 50 Other: Meal Breakfast Percent of Meal Consumed 25% # Bowel Movements 1 # of times incontinent of 1 Bowels Exam: Constitutional; Afebrile, cooperative, alert, not in distress. Eyes- No icterus, , No periorbital swelling Ears- Ext ear normal, hearing normal to conversation. Neck- Midline trachea, supple Respiratory system: Air Entry equal on both sides, zack rhonchi and wheezing, air entry better today than yesterday. CVS- Rate rhythm regular, S1,S2 heard, no gallop, no rub. Abdomen- Soft nontender abdomen, no organomegaly, no tenderness, no guarding or rigidity, [employer]- AOOx3, moving all extremities, no gross focal deficit noted. Medical - PN: Obj Da - Labs CBC & Chem 7: 04/25/17 04:53 04/25/17 04:53 Labs: Abnormal Lab Results 04/25/17 04/25/17 04/25/17 04:53 04:53 04:53 WBC RBC 3.64 L MCV 102.3 H RDW 19.2 H Plt Count 133 L MPV 10.9 H Lymph % (Auto) [place] % (Auto) 12.2 H Gran # Lymph # (Auto) 1.4 L [place] # (Auto) 1.0 H Lymphocytes % RBC Morphology Anisocytosis Macrocytosis Sodium Potassium 5.5 H Chloride 88 L Anion Gap 21.0 H BUN 70 H Creatinine 7.4 H* Glucose Uric Acid 8.5 H Phosphorus 5.5 H Total Creatine Kinase Myoglobin Troponin T 0.06 H* NT-Pro-B Natriuret Pep 04/24/17 04/24/17 04/24/17 14:51 14:51 14:42 WBC RBC MCV RDW Plt Count MPV Lymph % (Auto) [place] % (Auto) Gran # Lymph # (Auto) [place] # (Auto) Lymphocytes % 10 L RBC Morphology Abnorm A Anisocytosis 1+ A Macrocytosis 1+ A Sodium 132 L Potassium 5.4 H Chloride 85 L Anion Gap 25.0 H BUN 64 H Creatinine 7.2 H* Glucose 109 H Uric Acid Phosphorus Total Creatine Kinase 13 L Myoglobin 95 H Troponin T 0.06 H* NT-Pro-B Natriuret Pep 4122.0 H 04/24/17 14:42 WBC 11.2 H RBC 3.84 L MCV 102.2 H RDW 19.9 H Plt Count MPV 10.8 H Lymph % (Auto) 12.1 L [place] % (Auto) 13.6 H Gran # 8.1 H Lymph # (Auto) 1.4 L [place] # (Auto) 1.5 H Lymphocytes % RBC Morphology Anisocytosis Macrocytosis Sodium Potassium Chloride Anion Gap BUN Creatinine Glucose Uric Acid Phosphorus Total Creatine Kinase Myoglobin Troponin T NT-Pro-B Natriuret Pep Meds: Medications Acetaminophen (Tylenol) 650 mg PO Q6HP PRN PRN Reason: PAIN/FEVER > 101 Albuterol/Ipratropium (Duoneb) 3 ml NEB Q4HRT [facility] Last Admin: 04/25/17 10:53 Dose: Not Given Aspirin (Ecotrin) 325 mg PO DAILY [facility] Last Admin: 04/25/17 13:56 Dose: 325 mg Budesonide (Pulmicort) 0.5 mg NEB Q12 [facility] Last Admin: 04/25/17 08:54 Dose: 0.5 mg Calcium Acetate (Phoslo) 667 mg PO TIDCC [facility] Last Admin: 04/25/17 13:56 Dose: 667 mg Cefepime HCl (Maxipime) 1 gm IV Q24H [facility] Last Admin: 04/24/17 19:38 Dose: 1 gm Clopidogrel Bisulfate (Plavix) 75 mg PO DAILY [facility] Last Admin: 04/25/17 13:56 Dose: 75 mg Cyanocobalamin (Vitamin B-12) 1,000 mcg PO DAILY [facility] Last Admin: 04/25/17 13:56 Dose: 1,000 mcg Docusate Sodium (Colace) 100 mg PO BID [facility] Last Admin: 04/25/17 07:03 Dose: Not Given Enoxaparin Sodium (Lovenox) 40 mg SQ DAILY [facility] Last Admin: 04/25/17 13:56 Dose: 40 mg Estradiol (Estrace) 0.5 mg PO DAILY [facility] Last Admin: 04/25/17 13:56 Dose: 0.5 mg Fluoxetine HCl (Prozac) 40 mg PO DAILY [facility] Last Admin: 04/25/17 13:56 Dose: 40 mg Guaifenesin (Robitussin Dm) 10 ml PO Q4HP PRN PRN Reason: Cough Last Admin: 04/24/17 21:35 Dose: 10 ml Hydromorphone HCl (Dilaudid) 2 mg PO Q4HP PRN PRN Reason: Pain Last Admin: 04/25/17 08:24 Dose: 2 mg Metronidazole (Flagyl) 500 mg in 100 mls @ 100 mls/hr IV Q8H [facility] Last Admin: 04/25/17 14:19 Dose: 100 mls/hr Vancomycin HCl 1,500 mg/ (Sodium Chloride) 500 mls @ 333.3 mls/hr IV Q24H [facility] Loperamide HCl (Imodium) 2 mg PO PRN PRN PRN Reason: Diarrhea Last Admin: 04/25/17 08:24 Dose: 2 mg Magnesium Hydroxide (Milk Of Magnesia) 30 ml PO DAILYP PRN PRN Reason: Constipation Naloxone HCl (Narcan) 0.1 mg IV Q2MIN PRN PRN Reason: Opiate Reversal Ondansetron HCl (Zofran) 4 mg IV Q6HP PRN PRN Reason: Nausea And Vomiting Pantoprazole Sodium (Protonix) 40 mg PO QHS [facility] Last Admin: 04/24/17 19:39 Dose: 40 mg Suvorexant [Belsomra (] 10 Mg) 1 dose PO HSP PRN PRN Reason: Insomnia Sevelamer Carbonate (Renvela) 800 mg PO TIDAC [facility] Last Admin: 04/25/17 13:56 Dose: 800 mg Simvastatin (Zocor) 20 mg PO HS [facility] Last Admin: 04/24/17 19:39 Dose: 20 mg Sodium Chloride (Saline Flush) 10 ml IV Q8 [facility] Last Admin: 04/25/17 14:19 Dose: 10 ml Trazodone HCl (Desyrel) 250 mg PO HS [facility] Vancomycin HCl (Vancomycin Per Pharmacy) 1 order IV UD [facility] Vitamin D (Vitamin D3) 1,000 unit PO DAILY [facility] Last Admin: 04/25/17 13:56 Dose: 1,000 unit Medical - PN: A/P - Time Spent With Patient Total time spent is greater than 50% in coordination of care (as documented) at patient's floor/unit and/or counseling patient: - Narrative A/P Narrative: A/P health care acquired Pneumonia ESRd h/o mild Pericardial Effusion Restrictive Lung disease Chronic Cough Adrenal Mass Fibromyaltia B12 def Muscle Cramps Hyperkalemia Plan IV vanco, cefepime and flagyl for health care pna, flagyl added for possible aspiration, clinically improving, patient on HD> Treat elevated K with one dose of kayexalate Resume home dosing of duonebs, and budesonide on pantoprazole continue same repeat troponin in AM, shows mildly elevatd trop unchanged since yesterday, not likely cardiac , but chr elevation secondary to esrd Resume home meds as tolerated Nephrology following and help appreciated. dvt enoxaparin, scd diet renal DNR code status.
[2017-04-25] MEDS: VANCOMYCIN 1,500 MG in 0.9 % SODIUM CHLORIDE 500 ML IV SCH (16:02)
--- NOTE | 2017-04-25 16:46 | Nephrology Progress Note ---
Subjective Patient information: Note initiated : 04/25/17 at 4:42 pm Service Date, if different from initiated Date: [] Patient: Naz Joseph 71 y/o F admitted on 04/24/17 for Chest Pain/ Pneumonia. Chief Complaint: [] Principal diagnosis: pna Interval history: Patient still has poor appetite cough is a little better, CP much improved denies worsening SOB no edema no other concerns Pertinent ROS: as above Objective - Vital Signs Vital signs: Vital Signs Temp Pulse Pulse Resp BP BP Pulse Ox 04/25/17 13:21 81 90/61 04/25/17 12:54 86 97/62 04/25/17 12:33 97.5 F 82 102/75 04/25/17 12:05 81 105/71 04/25/17 12:00 96.7 F L 111/68 96 04/25/17 11:22 97.2 F 80 107/69 04/25/17 10:32 79 102/68 04/25/17 10:23 79 102/68 04/25/17 09:52 97.5 F 70 108/69 04/25/17 09:29 74 100/66 04/25/17 08:58 70 16 04/25/17 08:00 96.8 F L 12 111/70 96 04/25/17 03:45 97.6 F 71 12 103/66 95 04/24/17 23:25 72 18 04/24/17 23:21 97.7 F 73 12 107/67 97 04/24/17 23:18 96 04/24/17 20:09 66 18 04/24/17 20:03 93 04/24/17 18:49 98.2 F 73 20 112/65 94 04/24/17 18:44 98.2 F 70 12 100/64 94 04/24/17 18:41 98.2 F 70 12 100/64 94 04/24/17 18:30 73 112/65 94 04/24/17 18:00 67 99/78 92 04/24/17 17:45 70 96/65 96 04/24/17 17:44 67 95/67 97 04/24/17 17:43 66 96/65 94 04/24/17 17:00 68 20 95/67 98 Intake and Output 04/25/17 04/25/17 04/25/17 05:59 13:59 21:59 Intake Total 550 / 550 100 / 100 Balance 550 / 550 100 / 100 Intake: IV 500 / 500 100 / 100 Oral 50 / 50 Other: Meal Breakfast Percent of Meal Consumed 25% # Bowel Movements 1 # of times incontinent of 1 Bowels Weight 178 lb Patient Weight 04/26/17 05:59 Weight 178 lb Intake & Output: Intake & Output 04/25/17 04/25/17 04/25/17 05:59 13:59 21:59 Intake Total 550 / 550 100 / 100 Balance 550 / 550 100 / 100 Weight 178 lb Intake: IV 500 / 500 100 / 100 Oral 50 / 50 Other: Meal Breakfast Percent of Meal Consumed 25% # Bowel Movements 1 # of times incontinent of 1 Bowels - General Appearance General appearance: appears started age, chronically ill EENT: mucous membranes moist Neck: no JVD Respiratory: rales (better today ) Cardiology: no edema, normal S1, normal S2 Gastrointestinal: no tenderness, no guarding Integumentary: warm and dry, chronic venous stasis Neurologic: alert and oriented x3 Musculoskeletal: no erythema, no cyanosis Psychiatric: mood/affect appropriate - Lab 04/25/17 04:53 04/25/17 04:53 Most recent lab results Calcium 9.2 mg/dl (8.6-10.4) 04/25/17 04:53 Phosphorus 5.5 mg/dL (2.7-4.5) H 04/25/17 04:53 Magnesium 2.4 mg/dL (1.6-2.5) 04/25/17 04:53 Assessment and Plan (1) ESRD (end stage renal disease) on dialysis patient dialysed today for 4 hrs using revaclear 400 dialyser, 2K/2.5Ca dialysate at qb 400ml/min and qd 800ml/min, UF of around 1L achieved she is hypotensive post dialysis but asymptomatic, hope this improves I will follow her and i will likely not remove any UF tomorrow with her dialysis I will start her on nepro with meals given declining albumin and poor po intake Her Hb is stable and so is her ca and phos please dose her antibiotics to HD I will follow along Thank you for giving me an opportunity to participate in Ms Serrano medical care, appreciate it Status: Acute (2) Pneumonia Status: Acute Qualifiers: Laterality: bilateral Lung location: lower lobe of lung
[2017-04-25] MEDS: CEFEPIME 1 GM VIAL IV SCH (19:24)
[2017-04-25] MEDS: traZODone HCL 50 MG TABLET PO SCH (22:31)
[2017-04-25] MEDS: SIMVASTATIN 20 MG TABLET PO SCH (22:32)
[2017-04-25] MEDS: PANTOPRAZOLE 40 MG TABLET PO SCH (22:32)
[2017-04-26] MEDS: IPRATROPIUM/ALBUTEROL 3 ML AMPUL.NEB NEB SCH ×6 (03:45→22:22)
[2017-04-26] MEDS: metroNIDAZOLE 500 MG/100 ML BAG IV SCH ×3 (06:02→22:10)
[2017-04-26] MEDS: 0.9 % SODIUM CHLORIDE 10 ML SYRINGE IV SCH ×3 (06:02→22:10)
[2017-04-26 06:18] LABS: Basophils # (Auto) 0.1 K/mcL (0.0-0.3); Basophils % (Auto) 0.6 % (0.0-2.0); Eosinophils # (Auto) 0.2 K/mcL (0.0-0.7); Eosinophils % (Auto) 1.9 % (0.0-7.0); Lymphocytes # (Auto) 1.3 K/mcL (1.5-4.8); Lymphocytes % (Auto) 15.3 % (15.5-49.0); Mean Cell Volume 102.1 fL (80.0-100.0); Mean Corpuscular HGB Conc 33.1 g/dL (31.0-36.0); Mean Corpuscular Hemoglobin 33.8 pg (26.0-34.0); Monocytes # (Auto) 1.2 K/mcL (0.1-0.9); Monocytes % (Auto) 15.2 % (1.0-12.0); Platelet Count 134 K/mcL (140-440); RBC 3.47 M/mcL (4.00-5.20); Red Cell Distribution Width 19.3 % (11.5-14.5)
[2017-04-26 06:37] LABS: ALT/SGPT 7 U/l (0-40); Albumin 3.6 gm/dL (3.2-5.2); Albumin/Globulin Ratio 1.3 (1.0-2.3); Alkaline Phosphatase 86 U/L (39-117); Bilirubin,Direct < 0.2 mg/dL (0.0-0.3); Blood Urea Nitrogen 26 mg/dl (8-23); Gamma Glutamyl Transpeptidase 19 U/L (5-36); Magnesium 2.1 mg/dL (1.6-2.5); Uric Acid 3.8 mg/dL (2.5-8.0)
[2017-04-26] MEDS: SEVELAMER 800 MG TABLET PO SCH ×3 (07:08→18:01)
[2017-04-26] MEDS: BUDESONIDE 0.5 MG/2 ML AMPUL.NEB NEB SCH ×2 (07:25→19:07)
[2017-04-26] MEDS: DOCUSATE SODIUM 100 MG CAPSULE PO SCH ×2 (08:51→22:11)
[2017-04-26] MEDS: CYANOCOBALAMIN (VITAMIN B-12) 500 MCG TABLET PO SCH (08:51)
[2017-04-26] MEDS: CLOPIDOGREL 75 MG TABLET PO SCH (08:51)
[2017-04-26] MEDS: CALCIUM ACETATE 667 MG CAPSULE PO SCH ×3 (08:51→18:01)
[2017-04-26] MEDS: FLUoxetine HCL 20 MG CAPSULE PO SCH (08:51)
[2017-04-26] MEDS: ASPIRIN 325 MG ENTERIC COATED TABLET PO SCH (08:51)
[2017-04-26] MEDS: ENOXAPARIN 40 MG/0.4 ML SYRINGE SQ SCH (08:51)
[2017-04-26] MEDS: ESTRADIOL 1 MG TABLET PO SCH (08:52)
[2017-04-26] MEDS: VITAMIN D3 1,000 UNIT TABLET PO SCH (08:52)
[2017-04-26] MEDS: VANCOMYCIN 1,500 MG in 0.9 % SODIUM CHLORIDE 500 ML IV SCH (09:39)
[2017-04-26] MEDS ORDERED: MIDODRINE 5 MG TABLET PO ONE (13:51)
--- NOTE | 2017-04-26 17:12 | Internal Med Progress Note ---
Medical - PN: Subj Patient information: Note initiated : 04/26/17 at 5:10 pm Service Date, if different from initiated Date: [] Patient: Naz Joseph 71 y/o F admitted on 04/24/17 for Chest Pain/ Pneumonia. Chief Complaint: [] Interval history: Ms. Joseph is a 71 year old Female with esrd, on hd, with chr cough, presents to the er today from rehab with complaints of chest pain which started approx 11 am, no triggering factor, pain retrosternal, sharp, severe, non radiating, associated with some nausea, but no other complaints. She has chr cough going on for last 7 months and is following with pulmonary . The patient was recently admitted to the hospital for chf exacerbation and fluid removal. It was thought that her cough is related to her aspiration. She was advised to See GI it seems. The patient otherwise has no other issues, notes it was very uncomfortable due to the chest pain which was easing by the time I evaluated her. The patient lab showed mild leucocytosis, CXR shows bibasilar pna, cxr does not show any congestion. Patient labs show some low sodium and K of 5.4, EKG shows sinus rhythm, poor r wave progression, possible YONNY, t wave flattening in inf lat leads. She was admitted to the hospital with diagnosis of HCAP Pneumonia. April 25 Patient seen examined, no acute overnight events, Pt on HD on my eval doing well , had some nausea vomting and diarrhea overnight. Cdiff ordered Labs show improvement in wbc count, K still high, but pt on HD Breathing better, cp and cough better no other complaints reported April 26: patient seen examined, doing much better today, no compliaints, cough is much better patient wheezing is also much better labs improving, The patient has been struggling with cough and shortness of breath for 6 months , seems like this present regime is working well. will continue same for now monitor closely she still has some shortnees of breath and wheezing, but much better than before. Pertinent ROS: sob and cough prseent, but much improved Denies headache, dizziness Denies chest pain, palpitations Denies abdominal pain, nausea or vomiting. - Constitutional Vitals: Vital Signs Temp Pulse Resp BP Pulse Ox 97.9 F 72 18 98/66 95 04/26/17 16:07 04/26/17 17:06 04/26/17 15:36 04/26/17 17:06 04/26/17 12:00 Period Temp Pulse Resp BP Sys/Millan Pulse Ox Last 24 Hr 97.4 F-97.9 F 70-81 12-20 90-100/58-66 93-97 Intake and Output 04/26/17 04/26/17 04/26/17 05:59 13:59 21:59 Intake Total 400 / 400 460 / 460 98 / 98 Balance 400 / 400 460 / 460 98 / 98 Intake & Output: Intake & Output 04/26/17 04/26/17 04/26/17 05:59 13:59 21:59 Intake Total 400 / 400 460 / 460 98 / 98 Balance 400 / 400 460 / 460 98 / 98 Intake: IV 100 / 100 100 / 100 98 / 98 Oral 300 / 300 360 / 360 Other: Meal Lunch Percent of Meal Consumed 100% Feeding Ability Independent Exam: Constitutional; Afebrile, cooperative, alert, not in distress. Eyes- No icterus, , No periorbital swelling Ears- Ext ear normal, hearing normal to conversation. Neck- Midline trachea, supple Respiratory system: Air Entry equal on both sides, zack mild wheeze, air entry much better today CVS- Rate rhythm regular, S1,S2 heard, no gallop, no rub. Abdomen- Soft nontender abdomen, no organomegaly, no tenderness, no guarding or rigidity, HORTICULTURALIST- AOOx3, moving all extremities, no gross focal deficit noted. Medical - PN: Obj Da - Labs CBC & Chem 7: 04/26/17 05:00 04/26/17 05:00 Labs: Abnormal Lab Results 04/26/17 04/26/17 04/26/17 08:10 05:00 05:00 WBC RBC 3.47 L Hgb 11.7 L Hct 35.4 L MCV 102.1 H RDW 19.3 H Plt Count 134 L MPV 11.1 H Lymph % (Auto) 15.3 L [place] % (Auto) 15.2 H Gran # Lymph # (Auto) 1.3 L [place] # (Auto) 1.2 H Lymphocytes % RBC Morphology Anisocytosis Macrocytosis Sodium Potassium Chloride Anion Gap BUN 26 H Creatinine 4.1 H Glucose 128 H Uric Acid Phosphorus Total Creatine Kinase Myoglobin Troponin T NT-Pro-B Natriuret Pep Vancomycin Trough 28.0 H* 04/25/17 04/25/17 04/25/17 04:53 04:53 04:53 WBC RBC 3.64 L Hgb Hct MCV 102.3 H RDW 19.2 H Plt Count 133 L MPV 10.9 H Lymph % (Auto) [place] % (Auto) 12.2 H Gran # Lymph # (Auto) 1.4 L [place] # (Auto) 1.0 H Lymphocytes % RBC Morphology Anisocytosis Macrocytosis Sodium Potassium 5.5 H Chloride 88 L Anion Gap 21.0 H BUN 70 H Creatinine 7.4 H* Glucose Uric Acid 8.5 H Phosphorus 5.5 H Total Creatine Kinase Myoglobin Troponin T 0.06 H* NT-Pro-B Natriuret Pep Vancomycin Trough 04/24/17 04/24/17 04/24/17 14:51 14:51 14:42 WBC RBC Hgb Hct MCV RDW Plt Count MPV Lymph % (Auto) [place] % (Auto) Gran # Lymph # (Auto) [place] # (Auto) Lymphocytes % 10 L RBC Morphology Abnorm A Anisocytosis 1+ A Macrocytosis 1+ A Sodium 132 L Potassium 5.4 H Chloride 85 L Anion Gap 25.0 H BUN 64 H Creatinine 7.2 H* Glucose 109 H Uric Acid Phosphorus Total Creatine Kinase 13 L Myoglobin 95 H Troponin T 0.06 H* NT-Pro-B Natriuret Pep 4122.0 H Vancomycin Trough 04/24/17 14:42 WBC 11.2 H RBC 3.84 L Hgb Hct MCV 102.2 H RDW 19.9 H Plt Count MPV 10.8 H Lymph % (Auto) 12.1 L [place] % (Auto) 13.6 H Gran # 8.1 H Lymph # (Auto) 1.4 L [place] # (Auto) 1.5 H Lymphocytes % RBC Morphology Anisocytosis Macrocytosis Sodium Potassium Chloride Anion Gap BUN Creatinine Glucose Uric Acid Phosphorus Total Creatine Kinase Myoglobin Troponin T NT-Pro-B Natriuret Pep Vancomycin Trough Meds: Medications Acetaminophen (Tylenol) 650 mg PO Q6HP PRN PRN Reason: PAIN/FEVER > 101 Albuterol/Ipratropium (Duoneb) 3 ml NEB Q4HRT [facility] Last Admin: 04/26/17 15:36 Dose: 3 ml Aspirin (Ecotrin) 325 mg PO DAILY [facility] Last Admin: 04/26/17 08:51 Dose: 325 mg Budesonide (Pulmicort) 0.5 mg NEB Q12 [facility] Last Admin: 04/26/17 07:25 Dose: 0.5 mg Calcium Acetate (Phoslo) 667 mg PO TIDCC [facility] Last Admin: 04/26/17 11:46 Dose: 667 mg Cefepime HCl (Maxipime) 1 gm IV Q24H [facility] Last Admin: 04/25/17 19:24 Dose: 1 gm Clopidogrel Bisulfate (Plavix) 75 mg PO DAILY [facility] Last Admin: 04/26/17 08:51 Dose: 75 mg Cyanocobalamin (Vitamin B-12) 1,000 mcg PO DAILY [facility] Last Admin: 04/26/17 08:51 Dose: 1,000 mcg Docusate Sodium (Colace) 100 mg PO BID [facility] Last Admin: 04/26/17 08:51 Dose: 100 mg Enoxaparin Sodium (Lovenox) 40 mg SQ DAILY [facility] Last Admin: 04/26/17 08:51 Dose: 40 mg Estradiol (Estrace) 0.5 mg PO DAILY [facility] Last Admin: 04/26/17 08:52 Dose: 0.5 mg Fluoxetine HCl (Prozac) 40 mg PO DAILY [facility] Last Admin: 04/26/17 08:51 Dose: 40 mg Guaifenesin (Robitussin Dm) 10 ml PO Q4HP PRN PRN Reason: Cough Last Admin: 04/24/17 21:35 Dose: 10 ml Hydromorphone HCl (Dilaudid) 2 mg PO Q4HP PRN PRN Reason: Pain Last Admin: 04/25/17 22:32 Dose: 2 mg Metronidazole (Flagyl) 500 mg in 100 mls @ 100 mls/hr IV Q8H [facility] Last Infusion: 04/26/17 14:40 Dose: 0 mls/hr Vancomycin HCl 1,500 mg/ (Sodium Chloride) 500 mls @ 333.3 mls/hr IV Q24H [facility] Last Admin: 04/26/17 09:39 Dose: Not Given Magnesium Hydroxide (Milk Of Magnesia) 30 ml PO DAILYP PRN PRN Reason: Constipation Naloxone HCl (Narcan) 0.1 mg IV Q2MIN PRN PRN Reason: Opiate Reversal Ondansetron HCl (Zofran) 4 mg IV Q6HP PRN PRN Reason: Nausea And Vomiting Pantoprazole Sodium (Protonix) 40 mg PO QHS [facility] Last Admin: 04/25/17 22:32 Dose: 40 mg Suvorexant [Belsomra (] 10 Mg) 1 dose PO HSP PRN PRN Reason: Insomnia Sevelamer Carbonate (Renvela) 800 mg PO TIDAC [facility] Last Admin: 04/26/17 11:46 Dose: 800 mg Simvastatin (Zocor) 20 mg PO HS [facility] Last Admin: 04/25/17 22:32 Dose: 20 mg Sodium Chloride (Saline Flush) 10 ml IV Q8 [facility] Last Admin: 04/26/17 13:42 Dose: 10 ml Trazodone HCl (Desyrel) 250 mg PO HS [facility] Last Admin: 04/25/17 22:31 Dose: 250 mg Vancomycin HCl (Vancomycin Per Pharmacy) 1 order IV UD [facility] Vitamin D (Vitamin D3) 1,000 unit PO DAILY [facility] Last Admin: 04/26/17 08:52 Dose: 1,000 unit Medical - PN: A/P - Time Spent With Patient Total time spent is greater than 50% in coordination of care (as documented) at patient's floor/unit and/or counseling patient: - Narrative A/P Narrative: A/P health care acquired Pneumonia ESRd h/o mild Pericardial Effusion Restrictive Lung disease Chronic Cough Adrenal Mass Fibromyaltia B12 def Muscle Cramps Hyperkalemia Plan IV vanco, cefepime and flagyl for health care pna, flagyl added for possible aspiration, clinically improving, patient on HD> hyperkalemia resolved. Resume home dosing of duonebs, and budesonide on pantoprazole continue same repeat troponin in AM, shows mildly elevatd trop unchanged since yesterday, not likely cardiac , but chr elevation secondary to esrd Resume home meds as tolerated Nephrology following and help appreciated. dvt enoxaparin, scd diet renal DNR code status. anticipate d/c to snf in AM if continues to improve. Will need to find a way to get her antibiotics.
--- NOTE | 2017-04-26 17:30 | Nephrology Progress Note ---
Subjective Patient information: Note initiated : 04/26/17 at 5:27 pm Service Date, if different from initiated Date: [] Patient: Naz Joseph 71 y/o F admitted on 04/24/17 for Chest Pain/ Pneumonia. Chief Complaint: [] Principal diagnosis: pna Interval history: No overnight events though BP remains low normal her cough and SOB is much improved she denies worsening SOB, CP, dizziness her appetite is somewhat better no other concerns Pertinent ROS: as above Objective - Vital Signs Vital signs: Vital Signs Temp Pulse Pulse Resp BP BP Pulse Ox 04/26/17 17:06 72 98/66 04/26/17 16:07 97.9 F 72 100/64 04/26/17 15:41 72 96/64 04/26/17 15:36 70 18 04/26/17 12:00 97.4 F 14 97/61 95 04/26/17 11:00 77 18 04/26/17 08:00 80 20 94 04/26/17 07:41 97.4 F 14 95/62 95 04/26/17 07:30 80 20 04/26/17 04:00 97.8 F 75 12 95/64 93 04/26/17 00:00 97.6 F 80 14 90/60 97 04/25/17 23:11 81 14 04/25/17 20:00 97.6 F 79 14 95/58 95 04/25/17 19:55 81 16 Intake and Output 04/26/17 04/26/17 04/26/17 05:59 13:59 21:59 Intake Total 400 / 400 460 / 460 98 / 98 Balance 400 / 400 460 / 460 98 / 98 Intake: IV 100 / 100 100 / 100 98 / 98 Oral 300 / 300 360 / 360 Other: Meal Lunch Percent of Meal Consumed 100% Feeding Ability Independent Intake & Output: Intake & Output 04/26/17 04/26/17 04/26/17 05:59 13:59 21:59 Intake Total 400 / 400 460 / 460 98 / 98 Balance 400 / 400 460 / 460 98 / 98 Intake: IV 100 / 100 100 / 100 98 / 98 Oral 300 / 300 360 / 360 Other: Meal Lunch Percent of Meal Consumed 100% Feeding Ability Independent - General Appearance General appearance: appears started age, chronically ill EENT: mucous membranes moist Neck: no JVD Respiratory: rales (much improved ) Cardiology: no rub, no edema, normal S1, normal S2 Gastrointestinal: no tenderness, no organomegaly Integumentary: warm and dry, chronic venous stasis Neurologic: alert and oriented x3 Musculoskeletal: no cyanosis, no clubbing Psychiatric: mood/affect appropriate - Lab 04/26/17 05:00 04/26/17 05:00 Most recent lab results Calcium 9.0 mg/dl (8.6-10.4) 04/26/17 05:00 Phosphorus 3.4 mg/dL (2.7-4.5) 04/26/17 05:00 Magnesium 2.1 mg/dL (1.6-2.5) 04/26/17 05:00 Assessment and Plan (1) ESRD (end stage renal disease) on dialysis patient dialysed today 3 hrs using revaclear 400 dialyser, 3K/2.5Ca dialysate at qb 400ml/min and qd 800ml/min, and zero net UF We will weight her post dialysis and if BP is better will eventually try and keep her at that or 0.5kg over that weight Her serum electrolytes are stable her hb is at goal she is on nepro for albumin level trending down and poor appetite she does want to continue with rehab as she is still feeling weak I will follow along Thank you for giving me an opportunity to participate in Ms Serrano medical care, appreciate it Status: Acute (2) Pneumonia Status: Acute Qualifiers: Laterality: bilateral Lung location: lower lobe of lung
[2017-04-26] MEDS ORDERED: CEFEPIME 1 GM VIAL ONE (20:13)
[2017-04-26] MEDS: CEFEPIME 1 GM VIAL IV SCH (20:27)
[2017-04-26] MEDS: SIMVASTATIN 20 MG TABLET PO SCH (22:10)
[2017-04-26] MEDS: traZODone HCL 50 MG TABLET PO SCH (22:11)
[2017-04-26] MEDS: PANTOPRAZOLE 40 MG TABLET PO SCH (22:11)
[2017-04-27] MEDS: IPRATROPIUM/ALBUTEROL 3 ML AMPUL.NEB NEB SCH ×3 (03:52→11:07)
[2017-04-27] MEDS: metroNIDAZOLE 500 MG/100 ML BAG IV SCH (05:27)
[2017-04-27] MEDS: 0.9 % SODIUM CHLORIDE 10 ML SYRINGE IV SCH (05:29)
[2017-04-27 05:45] LABS: Basophils # (Auto) 0 K/mcL (0.0-0.3); Basophils % (Auto) 0.4 % (0.0-2.0); Eosinophils # (Auto) 0.1 K/mcL (0.0-0.7); Eosinophils % (Auto) 1.5 % (0.0-7.0); Granulocytes % (Auto) 69.6 % (38.0-78.0); Lymphocytes # (Auto) 1.4 K/mcL (1.5-4.8); Lymphocytes % (Auto) 14.6 % (15.5-49.0); Mean Corpuscular HGB Conc 32.9 g/dL (31.0-36.0); Mean Corpuscular Hemoglobin 34.2 pg (26.0-34.0); Monocytes # (Auto) 1.3 K/mcL (0.1-0.9); Monocytes % (Auto) 13.9 % (1.0-12.0); Platelet Count 130 K/mcL (140-440); Red Cell Distribution Width 19.9 % (11.5-14.5)
[2017-04-27 06:07] LABS: ALT/SGPT 7 U/l (0-40); Albumin 3.5 gm/dL (3.2-5.2); Albumin/Globulin Ratio 1.2 (1.0-2.3); Alkaline Phosphatase 79 U/L (39-117); Bilirubin,Direct < 0.2 mg/dL (0.0-0.3); Blood Urea Nitrogen 16 mg/dl (8-23); Gamma Glutamyl Transpeptidase 19 U/L (5-36); Magnesium 1.9 mg/dL (1.6-2.5); Uric Acid 2.5 mg/dL (2.5-8.0)
[2017-04-27] MEDS: BUDESONIDE 0.5 MG/2 ML AMPUL.NEB NEB SCH (07:36)
[2017-04-27] MEDS: ESTRADIOL 1 MG TABLET PO SCH (08:40)
[2017-04-27] MEDS: ASPIRIN 325 MG ENTERIC COATED TABLET PO SCH (08:40)
[2017-04-27] MEDS: FLUoxetine HCL 20 MG CAPSULE PO SCH (08:40)
[2017-04-27] MEDS: SEVELAMER 800 MG TABLET PO SCH (08:40)
[2017-04-27] MEDS: CALCIUM ACETATE 667 MG CAPSULE PO SCH (08:40)
[2017-04-27] MEDS: CLOPIDOGREL 75 MG TABLET PO SCH (08:41)
[2017-04-27] MEDS: CYANOCOBALAMIN (VITAMIN B-12) 500 MCG TABLET PO SCH (08:41)
[2017-04-27] MEDS: DOCUSATE SODIUM 100 MG CAPSULE PO SCH (08:41)
[2017-04-27] MEDS: VITAMIN D3 1,000 UNIT TABLET PO SCH (08:41)
[2017-04-27] MEDS: ENOXAPARIN 40 MG/0.4 ML SYRINGE SQ SCH (08:42)
--- NOTE | 2017-04-27 10:01 | Discharge Summary ---
Medical - DS: Prov Patient information: Note initiated : 04/27/17 at 9:59 am Service Date, if different from initiated Date: [] Patient: Naz Joseph 71 y/o F admitted on 04/24/17 for Chest Pain/ Pneumonia. Chief Complaint: [] Date of admission: 04/24/17 18:41 Discharge date: 04/27/17 Primary care physician: Maribel Jaimes Admitting clinician: Meme Amin Consults: 04/24/17 16:24 Consult to Physician [CONS] Stat Comment: Consulting Provider: Meme Amin Reason For Exam: Physician to Consult Discharging clinician: Meme Amin Medical - DS: Meds - Discharge Medications Prescriptions: Cefepime HCl/Dextrose, Iso-Osm [Cefepime 2 gm Injection] 2 gm IV 3XW #3 froz.piggy HYDROmorphone HCL [Dilaudid] 2 mg PO Q8HP PRN #40 tab PRN Reason: Pain metroNIDAZOLE [Metronidazole] 500 mg PO TID #18 tablet Vancomycin Per Pharmacy 1 order IV ONCE #3 miscell Active and Home Medications: Home Medications acetaminophen 500 mg tablet 1,000 mg PO Q6H PRN tab 12/03/14 [History Confirmed 04/24/17 Last Taken 04/12/17] cholecalciferol (vitamin D3) 1,000 unit capsule 1,000 unit PO QDAY cap [History Confirmed 04/24/17 Last Taken 08/19/15 08:00] cyanocobalamin (vit B-12) ER 1,000 mcg tablet,extended release 1,000 mcg PO QDAY tab 12/03/14 [History Confirmed 04/24/17 Last Taken 08/19/15 08:00] sevelamer carbonate 800 mg tablet 800 mg PO TIDAC 06/01/15 [History Confirmed Last Taken Unknown] calcium acetate 667 mg capsule 667 mg PO TIDCC 30 Days #60 cap 09/09/15 [ History Confirmed 04/24/17 Last Taken Unknown] fluoxetine 40 mg capsule 40 mg PO QDAY #90 cap 09/09/15 [Rx Confirmed 04/24/17 Last Taken 04/12/17] estradiol 0.5 mg tablet 0.5 mg PO QDAY #30 tab 11/01/15 [Rx Confirmed 04/24/17 Last Taken Unknown] simvastatin 20 mg tablet 20 mg PO HS 05/17/16 [History Confirmed 04/24/17 Last Taken 04/12/17] trazodone 100 mg tablet 250 mg PO QHS 90 Days #225 tab 09/11/16 [Rx Confirmed Last Taken 04/12/17] hydromorphone 2 mg tablet 2 mg PO Q8H PRN 10 Days #30 tab 10/27/16 [Rx Confirmed 04/24/17 Last Taken 04/06/17] Aspirin [Lite Coat Aspirin] 325 mg PO DAILY 04/13/17 [History Confirmed Last Taken Unknown] Clopidogrel Bisulfate [Plavix] 75 mg PO DAILY 04/13/17 [History Confirmed Last Taken Unknown] Budesonide [Pulmicort] 0.5 mg NEB Q12 ampul.neb 04/20/17 [Rx Confirmed Last Taken Unknown] HYDROmorphone HCL [Dilaudid] 2 mg PO Q8HP PRN #40 tab 04/20/17 [Rx Confirmed 01/01 Last Taken Unknown] Ipratropium/Albuterol [Duoneb] 3 ml NEB Q6H #1 ampul.neb 04/20/17 [Rx Confirmed 04/24/17 Last Taken Unknown] Pantoprazole [Protonix] 40 mg PO QHS #1 tab 04/20/17 [Rx Confirmed 04/24/17 Last Taken Unknown] guaiFENesin/DEXTROMETHORPHAN [Robitussin Dm] 10 ml PO Q4HP PRN ml 04/20/17 [Rx Confirmed 04/24/17 Last Taken Unknown] suvorexant 10 mg tablet 10 mg PO HS PRN #30 tab 04/24/17 [Rx Last Taken Unknown] Medical - DS: Hosp Hospital course: Ms. Joseph is a 71 year old Female with esrd, on hd, with chr cough, presents to the emergency room [facility] with complaints of chest pain which started approx 11 am, no triggering factor, pain retrosternal, sharp, severe, non radiating, associated with some nausea, but no other complaints. She has chr cough going on for last 7 months and is following with pulmonary . The patient was recently admitted to the hospital for chf exacerbation and fluid removal. It was thought that her cough is related to her aspiration. She was advised to See GI it seems. The patient otherwise has no other issues, notes it was very uncomfortable due to the chest pain which was easing by the time I evaluated her. The patient lab showed mild leucocytosis, CXR shows bibasilar pna, cxr does not show any congestion. Patient labs show some low sodium and K of 5.4, EKG shows sinus rhythm, poor r wave progression, possible YONNY, t wave flattening in inf lat leads. She was admitted to the hospital with diagnosis of HCAP Pneumonia. The patient pneumonia was treated with IV vancomycin, IV cefepime and metronidazole. The patient responded to the treatment well, her chest pain was much better, her breathing improved. Even the cough that she had for over 6-7 months seems to have improve significantly. The chest was clear to auscultation , which was a surprise given that we were struggling with her respiratory symptoms for a while. will continue present antibiotics for additional 6 days, to complete total of 10 days of treatment She will get 2gms cefepime after hemodialysis pharmacy will dose her vanco for after dialysis And metronidazole 500mg tid The rest of the stay in the hospital was unremarkable, no changes made to her list of medications. She will take the same meds as before. She is still weak and needs ongoing rehab before she can be discharged home. She is stable for discharge to rehab facility. Discharge diagnosis: Health care pneumonia, ESRD, - Time Spent with Patient Total time spent providing and/or coordinating discharge services: Greater than 30 minutes Medical - DS: Exam - Constitutional Vitals: Vital Signs Temp Pulse Pulse Resp BP BP Pulse Ox 04/27/17 08:30 20 92 04/27/17 07:37 86 16 04/27/17 06:41 98 F 16 103/60 92 04/27/17 04:00 97.7 F 86 16 90/58 92 04/27/17 00:00 97.5 F 78 14 120/73 92 04/26/17 22:22 74 16 04/26/17 20:42 98/67 04/26/17 20:00 97.5 F 75 14 86/50 99 04/26/17 19:08 74 16 04/26/17 18:35 96.7 F L 73 100/68 04/26/17 18:05 98.2 F 78 101/65 04/26/17 17:36 98.0 F 75 83/61 04/26/17 17:06 72 98/66 04/26/17 16:07 97.9 F 72 100/64 04/26/17 16:00 98.0 F 14 98/66 95 04/26/17 15:41 72 96/64 04/26/17 15:36 70 18 04/26/17 12:00 97.4 F 14 97/61 95 04/26/17 11:00 77 18 Intake and Output 04/26/17 04/27/17 04/27/17 21:59 05:59 13:59 Intake Total 98 / 98 100 / 100 340 / 340 Output Total 0 / 0 Balance 98 / 98 100 / 100 340 / 340 Intake: IV 98 / 98 100 / 100 100 / 100 Oral 240 / 240 Output: Void Amount 0 / 0 Other: Meal Breakfast Percent of Meal Consumed 50% Feeding Ability Independent Weight 186 lb 3.2 oz Additional comments: Constitutional; Afebrile, cooperative, alert, not in distress. Eyes- No icterus, , No periorbital swelling Ears- Ext ear normal, hearing normal to conversation. Neck- Midline trachea, supple Respiratory system: Air Entry equal on both sides, No crackles or wheezing, no rhonchi. CVS- Rate rhythm regular, S1,S2 heard, no gallop, no rub. Abdomen- Soft nontender abdomen, no organomegaly, no tenderness, no guarding or rigidity, TEST SKEIN WINDER- AOOx3, moving all extremities, no gross focal deficit noted. Medical - DS: Data Labs on day of discharge: Labs from last 24 hours 04/27/17 04/27/17 04:45 04:45 WBC 9.3 RBC 3.40 L Hgb 11.6 L Hct 35.4 L MCV 104.0 H MCH 34.2 H MCHC 32.9 RDW 19.9 H Plt Count 130 L MPV 10.8 H Gran % 69.6 Lymph % (Auto) 14.6 L Jay % (Auto) 13.9 H Eos % (Auto) 1.5 Baso % (Auto) 0.4 Gran # 6.5 Lymph # (Auto) 1.4 L Jay # (Auto) 1.3 H Eos # (Auto) 0.1 Baso # (Auto) 0 Sodium 136 Potassium 3.8 Chloride 97 Carbon Dioxide 25 Anion Gap 14.0 BUN 16 Creatinine 2.9 H GFR Calculation 16 Glucose 121 H Uric Acid 2.5 Calcium 9.1 Phosphorus 2.3 L Magnesium 1.9 Total Bilirubin 0.3 Direct Bilirubin < 0.2 GGT 19 AST 11 ALT 7 Alkaline Phosphatase 79 Lactate Dehydrogenase 148 Total Protein 6.5 Albumin 3.5 Globulin 3.0 Albumin/Globulin Ratio 1.2 Triglycerides 73 Preliminary micro results at discharge 04/24/17 14:42 Blood Culture - Preliminary Blood 04/24/17 14:51 Blood Culture - Preliminary Blood Medical - DS: A/P - Patient/Caregiver Discharge Instructions Activity: as per physical therapy Diet: Renal Additional Instructions: Please take the following antibiotics Cefepime 2gms after dialysis for total of three doses Vancomycin as per pharmacy after dialysis Metronidazole 500mg Three times a day total of 6 days Go to the ER if worsening symptoms or any other concerning symptom. Follow up with your pulmonary physician, your Microwave Oven Assembler Follow up with PCP in 1-2 weeks Prescriptions: Cefepime HCl/Dextrose, Iso-Osm [Cefepime 2 gm Injection] 2 gm IV 3XW #3 froz.piggy HYDROmorphone HCL [Dilaudid] 2 mg PO Q8HP PRN #40 tab PRN Reason: Pain metroNIDAZOLE [Metronidazole] 500 mg PO TID #18 tablet Vancomycin Per Pharmacy 1 order IV ONCE #3 miscell - Follow up Plan Follow up with: Maribel Jaimes, ALEXANDR, STEM ROLLER [Primary Care Provider] - Disposition: Xfer SNF Prognosis: Fair Rehab Potential: Fair I certify that the patient requires SNF services: Yes Overall status at discharge: patient is progressing back to baseline
== END 2017-04-27 11:40 | DRG 193 ==
LOC: ED 13:31 → MEDSUR 18:41
PROVIDERS: ADMIT Internal Medicine; ATTEND Internal Medicine

== ENCOUNTER 2017-05-14 11:39 | Inpatient (IN) ==
[2017-05-14 13:11] LABS: Basophils # (Auto) 0.1 K/mcL (0.0-0.3); Eosinophils # (Auto) 0.1 K/mcL (0.0-0.7); Eosinophils % (Auto) 1.7 % (0.0-7.0); Granulocytes % (Auto) 63.4 % (38.0-78.0); Lymphocytes # (Auto) 1.3 K/mcL (1.5-4.8); Lymphocytes % (Auto) 17.6 % (15.5-49.0); Mean Cell Volume 105.6 fL (80.0-100.0); Mean Corpuscular HGB Conc 32.7 g/dL (31.0-36.0); Mean Corpuscular Hemoglobin 34.5 pg (26.0-34.0); Monocytes # (Auto) 1.2 K/mcL (0.1-0.9); Monocytes % (Auto) 16.3 % (1.0-12.0); Platelet Count 179 K/mcL (140-440); RBC 3.55 M/mcL (4.00-5.20); Red Cell Distribution Width 20.1 % (11.5-14.5)
--- NOTE | 2017-05-14 13:12 | Cat Scan Report ---
CLINICAL INFORMATION: Sudden onset severe right flank pain COMPARISON: Abdominal pelvic CT from 03/02/[address] from 02/01/[address] from 03/08/2015. TECHNIQUE: 0.625 mm helical slices were obtained from the mid heart through the subtrochanteric regions. Following reconstruction, 2.5 mm sagittal, coronal and axial reformatted images were processed and reviewed at bone and soft tissue windows.The exam was performed using radiation dose optimization techniques including, but not limited to, automated exposure control, adjustment of the mA and/or kV according to patient size and use of iterative reconstruction technique. FINDINGS: Moderate left and small right pleural effusions have developed since the previous CT. There is moderate patchy airspace disease in both posterior lower lobes - more likely atelectasis than infiltrate. The heart is normal in size. There is a small hemopericardium which decreased since the comparison study over two months prior. Images through the abdomen show the gallbladder and bile ducts to be normal CBD is five millimeters. The noncontrasted liver, spleen, pancreas and right right adrenal gland and aorta are normal in size, configuration and attenuation without focal lesion. There is severe atrophy of both kidneys suggesting end-stage renal failure: The right is 6 cm in length and the left is 6.4 cm in length. There are multiple nonobstructing stones in the calyces of both kidneys, as previously seen, but no evidence of obstructing stone or hydronephrosis. There is a 3 cm benign adenoma left adrenal gland which is stable. Stomach, small and large bowel are normal. Amount of simple free fluid noted in the true pelvis has increased from prior study. No free air The urinary bladder contains a small amount of urine is otherwise normal. Hysterectomy/oophorectomy changes are noted. Minimal chronic wedging of all visualized thoracic vertebral bodies seen - as before. No focal osseous abnormality. A large amount of edema in the Camper's fascia of the right flank is new from the previous study IMPRESSION: Large amount of edema within Camper's fascia over the right flank - new from the comparison CT two months ago. This may be posttraumatic or inflammatory Small hemopericardium - slightly improved from exam two months prior. Suspect is related to chronic renal disease Moderate left and small right pleural effusions with moderate bibasilar airspace disease most likely atelectasis rather than infiltrate - new from prior study. Marked bilateral renal atrophy bilaterally end-stage renal failure. Multiple nonobstructing stones in the calyces of both kidneys 3 cm benign adenoma left adrenal gland which demonstrates long-term stability Small amount of free fluid in the deep true pelvis - increased from previous study Small bowel resection changes in the left upper quadrant with primary anastomosis. 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 No change Interpreted and Authenticated by: Fortino Mendoza 05/14/17
[2017-05-14 13:19] LABS: ALT/SGPT 6 U/l (0-40); Albumin 3.8 gm/dL (3.2-5.2); Albumin/Globulin Ratio 1.2 (1.0-2.3); Alkaline Phosphatase 82 U/L (39-117); Blood Urea Nitrogen 24 mg/dl (8-23)
[2017-05-14] MEDS ORDERED: HYDROmorphone 2 MG/ML SYRINGE IV SCH (14:00)
--- NOTE | 2017-05-14 14:28 | XRay Report ---
CLINICAL INFORMATION: Shortness of breath COMPARISON: 11/04/2014 05/04/2017 chest x-ray FINDINGS: Heart size and mediastinum are normal. There are small regions of consolidated infiltrate or atelectasis involving both medial bases. Mild upper lobe redistribution pulmonary vascular noted due to bibasilar airspace disease. Small bilateral pleural effusions noted. IMPRESSION: Small densely consolidated regions of atelectasis or infiltrate in both lower lobes with small effusions. Interpreted and Authenticated by: Fortino Mendoza 05/14/17
--- NOTE | 2017-05-14 14:37 | Emergency Department Note ---
ED Note Addendum Note Addendum: I examined this patient discussed the case with the mid-level and agree with the assessment and plan.
[2017-05-14] MEDS ORDERED: cefTRIAXone 1 GM VIAL IV ONE (15:09)
--- NOTE | 2017-05-14 15:28 | Emergency Department Note ---
Abdominal Pain HPI - General Chief Complaint: Flank Pain Stated Complaint: Right side pain Time Seen by Provider: 05/14/17 11:44 Source: patient Mode of arrival: ambulatory Limitations: no limitations - History of Present Illness HPI Narrative: 71-year-old female presents with sudden onset of right anterior flank pain this morning. States she does have issues with chronic pain but has not and he had anything like this for a very long time. Probably the last episode was last time she had a kidney stone several years ago. Does report a large history of kidney stones. No dysuria or frequency. No hematuria. States she makes very little urine, maybe a tablespoon a week if that. She is a dialysis patient reports her kidney stone function at all. No fever or chills. Positive nausea , no vomiting or diarrhea. She states they gave her Dilaudid orally at [facility] where she resides, and it did nothing to help her pain whatsoever so she came here for evaluation. Last bowel movement was normal and yesterday. Denies any fall, trauma, or injury. No cough or cold symptoms. No headache. States mild shortness of breath but she relates that to the pain. No difficulty breathing. Mild nonproductive cough. Improves with: nothing Worsens with: nothing Associated symptoms: Denies: vomiting, diarrhea, fever, chills, constipation, dysuria, hematuria, anorexia, syncope - Related Data Home Medications Medication Instructions Recorded Confirmed acetaminophen 500 mg tablet 1,000 mg PO Q6H PRN tab 12/03/14 04/24/17 cholecalciferol (vitamin D3) 1,000 1,000 unit PO QDAY cap 12/03/14 04/24/17 unit capsule cyanocobalamin (vit B-12) ER 1,000 1,000 mcg PO QDAY tab 12/03/14 04/24/17 mcg tablet,extended release sevelamer carbonate 800 mg tablet 800 mg PO TIDAC 06/01/15 04/24/17 calcium acetate 667 mg capsule 667 mg PO TIDCC 30 Days #60 cap 09/09/15 04/24/17 simvastatin 20 mg tablet 20 mg PO HS 05/17/16 04/24/17 Aspirin [Lite Coat Aspirin] 325 mg PO DAILY 04/13/17 04/24/17 Clopidogrel Bisulfate [Plavix] 75 mg PO DAILY 04/13/17 04/24/17 Previous Rx's Medication Instructions Recorded fluoxetine 40 mg capsule 40 mg PO QDAY #90 cap 09/09/15 estradiol 0.5 mg tablet 0.5 mg PO QDAY #30 tab 11/01/15 trazodone 100 mg tablet 250 mg PO QHS 90 Days #225 tab 09/11/16 hydromorphone 2 mg tablet 2 mg PO Q8H PRN 10 Days #30 tab 10/27/16 Budesonide [Pulmicort] 0.5 mg NEB Q12 ampul.neb 04/20/17 Ipratropium/Albuterol [Duoneb] 3 ml NEB Q6H #1 ampul.neb 04/20/17 Pantoprazole [Protonix] 40 mg PO QHS #1 tab 04/20/17 guaiFENesin/DEXTROMETHORPHAN 10 ml PO Q4HP PRN ml 04/20/17 [Robitussin Dm] suvorexant 10 mg tablet 10 mg PO HS PRN #30 tab 04/24/17 Cefepime HCl/Dextrose, Iso-Osm 2 gm IV 3XW #3 froz.piggy 04/27/17 [Cefepime 2 gm Injection] HYDROmorphone HCL [Dilaudid] 2 mg PO Q8HP PRN #40 tab 04/27/17 Vancomycin Per Pharmacy 1 order IV ONCE #3 miscell 04/27/17 metroNIDAZOLE [Metronidazole] 500 mg PO TID #18 tab 04/27/17 Allergies Allergy/AdvReac Type Severity Reaction Status Date / Time codeine Allergy Mild Hives Verified 04/20/17 15:47 Oxycodone Allergy Mild Rash Verified 04/20/17 15:47 NSAIDS (Non-Steroidal Allergy Unknown Unknown Verified 04/20/17 15:47 Anti-Inflamma meperidine [From Demerol] AdvReac Mild Itching Verified 04/20/17 15:47 Review of Systems All systems ED: reviewed and negative except as stated. Abdominal Pain PMH - Past Medical History [facility] Narrative: Medical History (Last Reviewed 04/20/17 @ 16:11 by Rodrigo Coleman MD) Fluid overload (Acute) Pneumonia (Acute) ESRD (end stage renal disease) on dialysis (Acute) Aspiration into airway (Chronic) Pulmonary fibrosis (Chronic) Aortic valve sclerosis (Chronic) Fatigue (Acute) Weakness (Acute) Dyspnea (Acute) COPD (chronic obstructive pulmonary disease) (Chronic) Cough (Chronic) Obstructive sleep apnea (Chronic) Fracture, femur neck (Resolved 09/24/15) Hematoma and contusion (Resolved) Muscle cramps (Resolved) Cyst of Bartholin's gland duct (Resolved) Hemorrhage of arteriovenous fistula (Resolved) Hematoma (Chronic) Pericarditis (Chronic) Hypertension (Chronic) Chest pain (Chronic) Coronary artery disease involving [place] coronary artery (Chronic) Dependence on renal dialysis (Chronic) End stage renal disease (Chronic) History of echocardiogram (Chronic 06/04/15) Pericardial effusion (Chronic) Insomnia (Chronic) Vitamin B 12 deficiency (Chronic) Venous insufficiency (Chronic 01/13/14) UTI (urinary tract infection) (Chronic) Tobacco use (Resolved) 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) Rotator cuff tear (Chronic 04/09/14) Rotator cuff arthropathy (Chronic 04/09/14) Renal insufficiency (Chronic 11/03/14) Renal failure (Chronic) Proteinuria (Chronic 07/14/13) Osteoporosis (Chronic) Osteoarthritis (Chronic 10/07/04) Obstructive uropathy (Chronic 11/10/14) Nephrolithiasis (Chronic 07/14/13) Systolic murmur (Chronic) Migraine (Chronic) Metabolic acidosis (Chronic 07/14/13) Joint pain (Chronic) Impaired fasting glucose (Chronic) Hypertensive renal disease (Chronic 07/14/13) Hypertension, essential (Chronic) Hemorrhoids, internal (Chronic 11/03/13) Gout (Chronic 07/14/13) Fibromyalgia (Chronic) Edema (Chronic 11/19/14) Diarrhea (Chronic) Depression (Chronic) Degenerative arthritis (Chronic) Deep vein thrombosis (Chronic) Chronic kidney disease, stage IV (severe) (Chronic 07/14/13) Carpal tunnel syndrome (Chronic) Bone spur (Chronic 11/12/02) Anxiety (Chronic) Blood clot associated with vein wall inflammation (Resolved) Fecal incontinence (Resolved 09/19/13) Tendonitis (Resolved 09/08/12) Past Surgical History (Last Reviewed 04/20/17 @ 16:11 by Rodrigo Coleman MD) Arteriovenous fistula, acquired (Chronic) History of bariatric surgery (Chronic) History of resection of small bowel (Chronic 03/23/15) History of lithotripsy (Acute 09/21/15) History of gastrointestinal surgery (Chronic) History of rectal surgery (Chronic) History of surgery (Chronic) Hx of appendectomy (Chronic) Hx of cataract surgery (Chronic) Hx of shoulder surgery (Chronic) Hx of tonsillectomy (Chronic) S/P JOSE-BSO (Chronic) S/P nerve repair (Chronic) History of abdominal surgery (Resolved 11/03/14) History of adenoidectomy (Resolved) History of cataract surgery (Resolved) History of colonoscopy (Resolved 11/03/13) History of cystoscopy (Resolved 04/20/11) History of hammer toe correction (Resolved) History of hemorrhoidectomy (Resolved) History of hysterectomy (Resolved) History of intravenous pyelogram (Resolved 05/19/11) History of lithotripsy (Resolved 01/12/09) History of oophorectomy (Resolved) History of tonsillectomy (Resolved) History of ureter repair (Resolved 09/02/12) History of ureter stent (Resolved 11/29/08) Status post bunionectomy (Resolved) Medical history: Reports: COPD, coronary artery disease, migraine, other (Sleep apnea itching, coronary artery disease, CKD with dialysis, hypertension migraines) Family history: Reports: other (diabetes fathwer mother hypertension cad) - Social History Smoking status: Former smoker Alcohol use: Reports: Rarely Drug use: Reports: none Physical Exam Limitations: no limitations General appearance: alert, in no apparent distress, other (Appears in pain) Head: atraumatic, normocephalic, normal inspection Eye: Present: normal appearance. Absent: conjunctival injection ENT: normal exam, normal oropharynx, mucous membranes moist, TM's normal bilaterally, normal external ear exam Neck: Present: normal inspection, trachea midline. Absent: tenderness, lymphadenopathy Chest: Present: normal inspection, symmetric chest wall rise Respiratory: Present: normal lung sounds bilaterally, other (Lung sounds slightly diminished at bases bilaterally otherwise clear throughout with good air movement). Absent: respiratory distress, accessory muscle use Cardiovascular: Present: regular rate, normal heart sounds Abdominal: Present: soft, tenderness (Right anterior flank pain. Tender with palpation. Tender with movement. There is no rash or redness. No edema.), normal bowel sounds. Absent: distention, mass Back: Present: CVA tenderness (R). Absent: CVA tenderness (L), vertebral tenderness Neurological: Present: alert, oriented X3 Psychiatric: Present: normal affect, normal mood Skin: Present: warm, dry, intact, normal color. Absent: rash, cyanosis, diaphoresis, erythema Course Course Narrative: spoke with Dr. Souza and reviewed CT results with him and pt status. He suggested we admit or obs pt for pain control and IV antibiotics. Dr Waters ( hospitalist) agrees to see pt. Vital Signs Temperature 97.6 F 05/14/17 11:40 Pulse Rate 78 05/14/17 11:40 Respiratory Rate 18 05/14/17 11:40 Blood Pressure 106/83 05/14/17 11:40 Pulse Oximetry (%) 93 05/14/17 11:40 Temperature 97.6 F 05/14/17 11:40 Pulse Rate 72 05/14/17 15:31 Respiratory Rate 18 05/14/17 11:40 Blood Pressure 99/68 05/14/17 15:31 Pulse Oximetry (%) 97 05/14/17 15:31 Abdominal Pain - Lab Data Lab results reviewed: Yes I reviewed the patient's lab results. Result diagrams: 05/14/17 12:17 05/14/17 12:17 Lab Results 05/14/17 05/14/17 Range/Units 12:17 12:17 WBC 7.3 (4.5-11.0) K/mcL RBC 3.55 L (4.00-5.20) M/mcL Hgb 12.3 (12.0-15.0) g/dL Hct 37.5 (36.0-48.0) % MCV 105.6 H (80.0-100.0) fL MCH 34.5 H (26.0-34.0) pg MCHC 32.7 (31.0-36.0) g/dL RDW 20.1 H (11.5-14.5) % Plt Count 179 (140-440) K/mcL MPV 10.3 (7.4-10.4) fL Gran % 63.4 (38.0-78.0) % Lymph % (Auto) 17.6 (15.5-49.0) % [place] % (Auto) 16.3 H (1.0-12.0) % Eos % (Auto) 1.7 (0.0-7.0) % Baso % (Auto) 1.0 (0.0-2.0) % Gran # 4.6 (1.8-8.0) K/mcL Lymph # (Auto) 1.3 L (1.5-4.8) K/mcL [place] # (Auto) 1.2 H (0.1-0.9) K/mcL Eos # (Auto) 0.1 (0.0-0.7) K/mcL Baso # (Auto) 0.1 (0.0-0.3) K/mcL Sodium 136 (133-145) mmol/L Potassium 4.3 (3.3-5.1) mmol/L Chloride 91 L (96-108) mmol/L Carbon Dioxide 27 (22-30) mmol/L Anion Gap 18.0 H (8-16) BUN 24 H (8-23) mg/dl Creatinine 5.3 H* (0.6-1.1) mg/dl GFR Calculation 8 Glucose 117 H (70-105) mg/dL Calcium 9.5 (8.6-10.4) mg/dl Total Bilirubin 0.3 (0.0-1.0) mg/dL AST 10 (0-37) U/l ALT 6 (0-40) U/l Alkaline Phosphatase 82 (39-117) U/L Total Protein 7.0 (5.9-8.4) gm/dL Albumin 3.8 (3.2-5.2) gm/dL Globulin 3.2 (2.2-3.7) gm/dL Albumin/Globulin Ratio 1.2 (1.0-2.3) - Radiology Data Radiology results reviewed: Yes I reviewed the patient's radiology results. Disposition Pt seen by ENVIRONMENTAL SERVICES TECHNICIAN/PA only: No Clinical Impression: Flank pain, Bilateral pleural effusion, Pain management [facility] Referrals: Maribel Jaimes DNP, BAR TACKER [Primary Care Provider] - Carla Valentin MD [Physician] - Time of Disposition: 16:00
[2017-05-14 16:52] LABS: C-Reactive Protein 2.1 mg/dl (0.0-0.8)
[2017-05-14] MEDS ORDERED: IOPAMIDOL 100 ML BOTTLE IJ ONE (18:01)
[2017-05-14] MEDS ORDERED: IPRATROPIUM/ALBUTEROL 3 ML AMPUL.NEB NEB PRN (18:11)
[2017-05-14] MEDS ORDERED: ONDANSETRON 4 MG/2 ML VIAL IV PRN (18:11)
[2017-05-14] MEDS ORDERED: HYDROmorphone 2 MG/ML SYRINGE IV PRN (18:11)
[2017-05-14] MEDS ORDERED: BISACODYL 10 MG SUPP.RECT PR PRN (18:11)
[2017-05-14] MEDS: HYDROmorphone 2 MG/ML SYRINGE IV SCH (18:32)
[2017-05-14] MEDS ORDERED: HYDROmorphone 2 MG/ML SYRINGE ONE (18:37)
--- NOTE | 2017-05-14 19:06 | Internal Med History&Physical ---
Medical - H&P: [facility] Patient information: Note initiated : 05/14/17 at 7:02 pm Service Date, if different from initiated Date: [] Patient: Naz Joseph a 71 y/o F admitted on 05/14/17 for . Chief Complaint: Acute R flank pain History of present illness: Ms. Joseph is a 71 year old F with a complicated past medical history including end-stage renal disease on dialysis, pulmonary fibrosis, COPD, BIN, hypertension and coronary artery disease who was recently admitted 04/24-04/27 with chest pain and treated for pneumonia and volume overload. Of note, at that time she was found to have aspiration and she tells me she was found to have an esophageal stricture requiring dilatation with EGD. She still has some residual cough, but is not requiring oxygen and overall is feeling better from her pneumonia. She has been rehabilitating at [facility] and was in her usual state of health until 2 days ago when she had nonbilious, nonbloody emesis 1. She felt fine afterwards but awoke this morning with acute, severe right flank pain. She received a dose of oral Dilaudid at [facility] with no improvement of her symptoms. She is transferred to the ER and was found to have edema of the Camper's fascia on CT scan. She denies any history of trauma to the area. She denies fevers or chills. Her pain does not change with position. She makes minimal urine. Review of systems: Please see the HPI. Otherwise a comprehensive review of systems is negative or noncontributory to the chief complaint. Medical - H&P: PMH Medical history: 1. End-stage renal disease on hemodialysis secondary to hypertensive renal disease and obstructive uropathy 2. Pulmonary fibrosis/copd 3. CAD 4. Obstructive sleep apnea 5. History of aspiration with what she describes as an esophageal stricture 6. Hypertension 7. Secondary hypothyroidism 8. Vitamin B-12 deficiency 9. Osteoarthritis 10. Fibromyalgia 11. Gout 12. Hemorrhoids Surgical history: Arteriovenous fistula, acquired (Chronic) History of bariatric surgery (Chronic) History of resection of small bowel (Chronic 03/23/15) History of lithotripsy (Acute 09/21/15) History of gastrointestinal surgery (Chronic) History of rectal surgery (Chronic) History of surgery (Chronic) Hx of appendectomy (Chronic) Hx of cataract surgery (Chronic) Hx of shoulder surgery (Chronic) Hx of tonsillectomy (Chronic) S/P JOSE-BSO (Chronic) S/P nerve repair (Chronic) History of abdominal surgery (Resolved 11/03/14) History of adenoidectomy (Resolved) History of cataract surgery (Resolved) History of colonoscopy (Resolved 11/03/13) History of cystoscopy (Resolved 04/20/11) History of hammer toe correction (Resolved) History of hemorrhoidectomy (Resolved) History of hysterectomy (Resolved) History of intravenous pyelogram (Resolved 05/19/11) History of lithotripsy (Resolved 01/12/09) History of oophorectomy (Resolved) History of tonsillectomy (Resolved) History of ureter repair (Resolved 09/02/12) History of ureter stent (Resolved 11/29/08) Status post bunionectomy (Resolved) Pertinent family history: Diabetes, HTN, CAD Social history: She previously lived independently with her and took care of him. She is currently rehabilitating at [facility] following an admission for pneumonia and volume overload. She is currently using a walker to ambulate and sometimes needs to be wheeled in a wheelchair. She has a prior history of smoking but quit. She denies alcohol or recreational drug use. She is a DNR, that would accept short-term intubation. Her healthcare power of attorney at law is Kayla Rodriguez, a family friend. Medical - H&P: Meds Home Medications Medication Instructions Recorded Confirmed Type acetaminophen 500 mg tablet 1,000 mg PO Q6H PRN tab 12/03/14 04/24/17 History cholecalciferol (vitamin D3) 1,000 1,000 unit PO QDAY cap 12/03/14 04/24/17 History unit capsule cyanocobalamin (vit B-12) ER 1,000 1,000 mcg PO QDAY tab 12/03/14 04/24/17 History mcg tablet,extended release sevelamer carbonate 800 mg tablet 800 mg PO TIDAC 06/01/15 04/24/17 History calcium acetate 667 mg capsule 667 mg PO TIDCC 30 Days #60 cap 09/09/15 History fluoxetine 40 mg capsule 40 mg PO QDAY #90 cap 09/09/15 04/24/17 Rx estradiol 0.5 mg tablet 0.5 mg PO QDAY #30 tab 11/01/15 04/24/17 Rx simvastatin 20 mg tablet 20 mg PO HS 05/17/16 04/24/17 History trazodone 100 mg tablet 250 mg PO QHS 90 Days #225 tab 09/11/16 04/24/17 Rx hydromorphone 2 mg tablet 2 mg PO Q8H PRN 10 Days #30 tab 10/27/16 04/24/17 Rx RX: Aspirin [Lite Coat Aspirin] 325 mg PO DAILY 04/13/17 04/24/17 History RX: Clopidogrel Bisulfate [Plavix] 75 mg PO DAILY 04/13/17 04/24/17 History RX: Budesonide [Pulmicort] 0.5 mg NEB Q12 ampul.neb 04/20/17 04/24/17 Rx RX: Ipratropium/Albuterol [Duoneb] 3 ml NEB Q6H #1 ampul.neb 04/20/17 04/24/17 Rx RX: Pantoprazole [Protonix] 40 mg PO QHS #1 tab 04/20/17 04/24/17 Rx RX: guaiFENesin/DEXTROMETHORPHAN 10 ml PO Q4HP PRN ml 04/20/17 04/24/17 Rx [Robitussin Dm] suvorexant 10 mg tablet 10 mg PO HS PRN #30 tab 04/24/17 Rx Cefepime HCl/Dextrose, Iso-Osm 2 gm IV 3XW #3 froz.piggy 04/27/17 Rx [Cefepime 2 gm Injection] RX: HYDROmorphone HCL [Dilaudid] 2 mg PO Q8HP PRN #40 tab 04/27/17 Rx RX: Vancomycin Per Pharmacy 1 order IV ONCE #3 miscell 04/27/17 Rx metroNIDAZOLE [Metronidazole] 500 mg PO TID #18 tab 04/27/17 Rx Allergies Allergy/AdvReac Type Severity Reaction Status Date / Time codeine Allergy Mild Hives Verified 04/20/17 15:47 Oxycodone Allergy Mild Rash Verified 04/20/17 15:47 NSAIDS (Non-Steroidal Allergy Unknown Unknown Verified 04/20/17 15:47 Anti-Inflamma meperidine [From Demerol] AdvReac Mild Itching Verified 04/20/17 15:47 Medical - H&P: Exam - Constitutional Vitals: Temp Pulse Resp BP Pulse Ox 97.4 F 72 20 113/77 97 05/14/17 18:10 05/14/17 18:10 05/14/17 18:10 05/14/17 18:10 05/14/17 18:10 General: This is a well-developed, pleasant woman in no acute distress. HEENT: Normocephalic atraumatic. PERRLA. EOMI. Sclerae anicteric; conjunctiva noninjected. Mucus membranes are dry. Neck: Supple without adenopathy or JVD. CV: Regular rate and rhythm. No murmurs, rubs or gallops. Respiratory: Lungs are clear to auscultation bilaterally. No wheezes, rales or rhonchi Abdomen: Soft, nondistended. Multiple ecchymoses over her abdomen consistent with subcutaneous heparin injections. Her right abdominal wall is tender to palpation. No peritoneal signs. Neuro: Alert and oriented 3. Cranial nerves II through XII are intact. Psych: Normal mood and affect Extremities: No clubbing, cyanosis or edema. Skin: Warm and dry Medical - H&P: Reslt - Labs CBC & Chem 7: 05/14/17 12:17 05/14/17 12:17 Labs: Short CBC 05/14/17 Range/Units 12:17 WBC 7.3 (4.5-11.0) K/mcL Hgb 12.3 (12.0-15.0) g/dL Hct 37.5 (36.0-48.0) % Plt Count 179 (140-440) K/mcL BMP 05/14/17 12:17 Sodium 136 Potassium 4.3 Chloride 91 L Carbon Dioxide 27 BUN 24 H Creatinine 5.3 H* Glucose 117 H Calcium 9.5 Liver Function 05/14/17 Range/Units 12:17 Total Bilirubin 0.3 (0.0-1.0) mg/dL AST 10 (0-37) U/l ALT 6 (0-40) U/l Alkaline Phosphatase 82 (39-117) U/L Albumin 3.8 (3.2-5.2) gm/dL - Impressions Chest x-ray shows small subsegmental regions of atelectasis or infiltrate in both lower lobes with small effusions. CT abdomen and pelvis shows a large amount of edema within Camper's fascia over the right flank. This may be posttraumatic or inflammatory Medical - H&P: A/P - Narrative A/P Narrative: #Right flank pain -with edema of Camper's fascia on CT scan-->"fasciitis". CRP and PCT reassuring. No fevers or WBC. She has recently been on broad spectrum antibiotics and is at risk of C diff. Will trend CRP and PCT. F/U BC. If she spikes fever, will consider starting empiric antibiotics. She is s/p CTX in ED. -PO and IV Dilaudid PRN -Lidocaine patch to R flank -consider steroids #End stage renal disease on dialysis--HD T, Th, Sat. Appears euvolemic. Dr. Souza to follow. Cont sevelamer 800mg TID AC #CAD--cont ASA/Plavix, simvastatin 20 QHS #Fibromyalgia--occasionally uses po Dilaudid. Multiple opiate intolerances. Cont home fluoxetine #B12 deficiency--h/o gastric bypass. Cont daily replacement #DVT prophylaxis--heparin #CODE STATUS--DNR. Short-term intubation OK. HCPOA is her friend, Holli Rodriguez.
[2017-05-14] MEDS: SIMVASTATIN 20 MG TABLET PO SCH (21:09)
[2017-05-14] MEDS: LIDOCAINE PATCH TOPICAL SCH (21:10)
[2017-05-14] MEDS: HEPARIN 5,000 UNIT/ML VIAL SQ SCH (21:10)
[2017-05-14] MEDS: HYDROmorphone 2 MG TABLET PO PRN (21:10)
[2017-05-14] MEDS: 0.9 % SODIUM CHLORIDE 10 ML SYRINGE IV SCH (21:10)
[2017-05-14] MEDS: SENNOSIDES 1 TABLET PO SCH (21:11)
[2017-05-15] MEDS: HYDROmorphone 2 MG TABLET PO PRN ×3 (02:02→15:01)
[2017-05-15] MEDS: 0.9 % SODIUM CHLORIDE 10 ML SYRINGE IV SCH ×3 (06:01→21:54)
[2017-05-15 07:07] LABS: Mean Cell Volume 106.8 fL (80.0-100.0); Mean Corpuscular HGB Conc 32.7 g/dL (31.0-36.0); Mean Corpuscular Hemoglobin 34.9 pg (26.0-34.0); Platelet Count 178 K/mcL (140-440); RBC 3.45 M/mcL (4.00-5.20); Red Cell Distribution Width 19.8 % (11.5-14.5)
[2017-05-15 07:14] LABS: ALT/SGPT 5 U/l (0-40); Albumin 3.6 gm/dL (3.2-5.2); Albumin/Globulin Ratio 1.2 (1.0-2.3); Alkaline Phosphatase 75 U/L (39-117); Blood Urea Nitrogen 28 mg/dl (8-23)
[2017-05-15] MEDS: HEPARIN 5,000 UNIT/ML VIAL SQ SCH ×2 (08:26→21:53)
[2017-05-15] MEDS: ASPIRIN 81 MG TAB.CHEW PO SCH (08:27)
[2017-05-15] MEDS: CYANOCOBALAMIN (VITAMIN B-12) 500 MCG TABLET PO SCH (08:27)
[2017-05-15] MEDS: SEVELAMER 800 MG TABLET PO SCH ×3 (08:27→17:31)
[2017-05-15] MEDS: CLOPIDOGREL 75 MG TABLET PO SCH (08:27)
[2017-05-15 09:00] LABS: Anisocytosis 1+ (NONE SEEN); Eosinophils % (Manual) 2 % (0-7); Lymphocytes % 20 % (15-49); Macrocytosis 2+ (NONE SEEN); Monocytes % (Manual) 18 % (1-12); Ovalocytes FEW (NONE SEEN); Platelet Estimate NORMAL (NORMAL); RBC Morphology ABNORM (NORMAL); Segmented Neutrophils % 58 % (38-78)
--- NOTE | 2017-05-15 15:14 | Internal Med Progress Note ---
Medical - PN: Subj Patient information: Note initiated : 05/15/17 at 3:03 pm Service Date, if different from initiated Date: [] Patient: Naz Joseph a 71 y/o F admitted on 05/14/17 for Edema within Camper' s Fascia. Chief Complaint: [] Interval history: History of present illness: Ms. Joseph is a 71 year old F with a complicated past medical history including end-stage renal disease on dialysis, pulmonary fibrosis, COPD, BIN, hypertension and coronary artery disease who was recently admitted 04/24-04/27 with chest pain and treated for pneumonia and volume overload. Of note, at that time she was found to have aspiration and she tells me she was found to have an esophageal stricture requiring dilatation with EGD. She still has some residual cough, but is not requiring oxygen and overall is feeling better from her pneumonia. She has been rehabilitating at [facility] and was in her usual state of health until 2 days ago when she had nonbilious, nonbloody emesis 1. She felt fine afterwards but awoke this morning with acute, severe right flank pain. She received a dose of oral Dilaudid at [facility] with no improvement of her symptoms. She is transferred to the ER and was found to have edema of the Camper's fascia on CT scan. She denies any history of trauma to the area. She denies fevers or chills. Her pain does not change with position. She makes minimal urine. May 15: Her right flank pain was controlled while still but severely exacerbated while walking with physical therapy. She states po pain meds do not even touch the pain and IV Dilaudid only takes the edge off for about an hour. Again denies any trauma. I discussed case with Dr. Ricketts (surgery) who will see pt this afternoon. ROS: no fever or nausea Gen: up in chair, appears uncomfortable CV:RRR. No m/r/g Resp: CTAB Abd: R abdominal wall is indurated, not warm. No erythema. Ext: No c/c/e NRO: A/O x3. - Constitutional Vitals: Vital Signs Temp Pulse Resp BP Pulse Ox 97.0 F 69 20 108/73 96 05/15/17 07:34 05/15/17 04:00 05/15/17 07:34 05/15/17 07:34 05/15/17 07:34 Period Temp Pulse Resp BP Sys/Millan Pulse Ox Last 24 Hr 97.0 F-97.7 F 69-75 20-22 94-114/65-77 93-100 Intake and Output 05/15/17 05/15/17 05/15/17 05:59 13:59 21:59 Intake Total 200 / 200 240 / 240 Balance 200 / 200 240 / 240 Weight 202 lb 6.4 oz Intake & Output: Intake & Output 05/15/17 05/15/17 05/15/17 05:59 13:59 21:59 Intake Total 200 / 200 240 / 240 Balance 200 / 200 240 / 240 Weight 202 lb 6.4 oz Intake: Oral 200 / 200 240 / 240 Other: Meal Nourishment/Supplement Breakfast Percent of Meal Consumed 100% 90 Feeding Ability Independent Independent Medical - PN: Obj Da - Labs CBC & Chem 7: 05/15/17 04:40 05/15/17 04:40 Labs: Abnormal Lab Results 05/15/17 05/15/17 05/14/17 04:40 04:40 16:00 RBC 3.45 L MCV 106.8 H MCH 34.9 H RDW 19.8 H MPV 10.7 H Morrow % (Auto) Lymph # (Auto) Morrow # (Auto) Monocytes % (Manual) 18 H RBC Morphology Abnorm A Anisocytosis 1+ A Macrocytosis 2+ A Ovalocytes Few A Chloride 91 L Anion Gap 18.0 H BUN 28 H Creatinine 6.1 H* Glucose C-Reactive Protein 2.1 H 05/14/17 05/14/17 12:17 12:17 RBC 3.55 L MCV 105.6 H MCH 34.5 H RDW 20.1 H MPV Morrow % (Auto) 16.3 H Lymph # (Auto) 1.3 L Morrow # (Auto) 1.2 H Monocytes % (Manual) RBC Morphology Anisocytosis Macrocytosis Ovalocytes Chloride 91 L Anion Gap 18.0 H BUN 24 H Creatinine 5.3 H* Glucose 117 H C-Reactive Protein Meds: Medications Albuterol/Ipratropium (Duoneb) 3 ml NEB Q4HP PRN PRN Reason: Wheezing Aspirin (Aspirin) 81 mg PO DAILY [facility] Last Admin: 05/15/17 08:27 Dose: 81 mg Bisacodyl (Dulcolax) 10 mg [place] Q2-3DAYS PRN PRN Reason: Constipation Clopidogrel Bisulfate (Plavix) 75 mg PO DAILY [facility] Last Admin: 05/15/17 08:27 Dose: 75 mg Cyanocobalamin (Vitamin B-12) 1,000 mcg PO DAILY [facility] Last Admin: 05/15/17 08:27 Dose: 1,000 mcg Heparin Sodium (Porcine) (Heparin) 5,000 unit SQ Q12 [facility] Last Admin: 05/15/17 08:26 Dose: 5,000 unit Hydromorphone HCl (Dilaudid) 1 mg IV ONCE [facility] Last Admin: 05/14/17 18:32 Dose: 1 mg Hydromorphone HCl (Dilaudid) 1 mg IV Q2HP PRN PRN Reason: PAIN LEVEL > 6 Hydromorphone HCl (Dilaudid) 4 mg PO Q4HP PRN PRN Reason: PAIN LEVEL 3-6 Last Admin: 05/15/17 15:01 Dose: 4 mg Lidocaine (Lidoderm) 1 patch [facility] Last Admin: 05/14/17 21:10 Dose: 1 patch Ondansetron HCl (Zofran) 4 mg IV Q6HP PRN PRN Reason: Nausea And Vomiting Senna (Senokot) 2 tab PO HS [facility] Last Admin: 05/14/17 21:11 Dose: 2 tab Sevelamer Carbonate (Renvela) 800 mg PO TIDCC [facility] Last Admin: 05/15/17 14:16 Dose: Not Given Simvastatin (Zocor) 20 mg PO HS [facility] Last Admin: 05/14/17 21:09 Dose: 20 mg Sodium Chloride (Saline Flush) 10 ml IV Q8 [facility] Last Admin: 05/15/17 14:16 Dose: Not Given Medical - PN: A/P - Time Spent With Patient Total time spent is greater than 50% in coordination of care (as documented) at patient's floor/unit and/or counseling patient: 25 - 35 minutes - Narrative A/P Narrative: #Right flank pain -with edema of Camper's fascia on CT scan-->"fasciitis". CRP and PCT reassuring. No fevers or WBC. She has recently been on broad spectrum antibiotics and is at risk of C diff. Will trend CRP and PCT. F/U BC. If she spikes fever, will consider starting empiric antibiotics. She is s/p CTX in ED. She has no evidence of systemic infection but as her symptoms are not improving , I have asked Dr. Ricketts's opinion. He will see pt this afternoon. Greatly appreciate input. -PO and IV Dilaudid PRN -Lidocaine patch to R flank -?consider steroids. #End stage renal disease on dialysis--HD T, Th, Sat. Appears euvolemic. Dr. Souza to follow. Cont sevelamer 800mg TID AC #CAD--cont ASA/Plavix, simvastatin 20 QHS #Fibromyalgia--occasionally uses po Dilaudid. Multiple opiate intolerances. Cont home fluoxetine #B12 deficiency--h/o gastric bypass. Cont daily replacement #DVT prophylaxis--heparin #CODE STATUS--DNR. Short-term intubation OK. HCPOA is her friend, Holli Rodriguez. Medical - PN: Qual - VTE Deep Vein Thrombosis/Pulmonary Embolism Present on Admission: No
--- NOTE | 2017-05-15 16:28 | General Surgery Consult Note ---
History of Present Illness Patient information: Note initiated : 05/15/17 at 4:26 pm Service Date, if different from initiated Date: [] Patient: Naz Joseph 71 y/o F admitted on 05/14/17 for Edema within Camper' s Fascia. Chief Complaint: [] Consult date: 05/15/17 Requesting physician: Dorene Waters History of present illness: 71-year-old female with end-stage renal disease on hemodialysis. The patient is admitted for evaluation of right flank CVA pain associated with CT findings of tissue edema and her subcutaneous tissue noted on CT. The patient has significant peripheral edema extending from chest level all the way down to her ankles. On evaluation the CT actually shows tissue edema on both sides with the right side being slightly more prominent. The patient has soreness in the area on the right side with increased prominence but she has pitting edema without cellulitis. She does not have any erythema or warmth in the area and. Exam reveals that the edema is equal on both sides but the area on the right is made slightly more prominent by compression from her depends garments. She does not have any abdominal symptoms. Her albumin and total protein are normal. Review of Systems - Constitutional fatigue, headache(s), malaise, stops breathing during sleep, weakness, weight gain - EENT Nose, mouth and throat: headache(s), no abnormal hearing, no dizziness, no dysphagia - Cardiovascular chest pain at rest, dyspnea on exertion, edema, palpatations - Respiratory cough, dyspnea on exertion, chest congestion - Gastrointestinal abdominal pain (Is), bloating, diarrhea (Is), loose stools, nausea - Musculoskeletal arthralgias, back pain, joint swelling, numbness, stiffness - Integumentary no pruritus, no rash - Neurological headache(s), numbness, tremor(s), weakness, no convulsions, no dizziness - Psychiatric anxiety, depression - Endocrine fatigue, no palpitations - Hematologic/Lymphatic no easy bleeding, no easy bruising, no lymphadenopathy - Allergic/Immunologic no tongue swelling, no throat swelling, no uticaria, no wheezing, no lip swelling Past History Past medical history: Congestive heart failure Chronic obstructive lung disease Chronic obstructive sleep apnea Pulmonary fibrosis Coronary artery disease End-stage renal disease on hemodialysis Hypertension Past surgical history: Weight loss surgery Small bowel resection Multiple AV fistulas Appendectomy Total abdominal hysterectomy and bilateral salpingo-oophorectomy Hemorrhoidectomy Ureteral and bladder surgery Past family history: Diabetes mellitus Hypertension Stroke Coronary artery disease Past social history: Never tobacco use Denies alcohol use Denies drug use Medications and Allergies Home Medications Medication Instructions Recorded Confirmed Type acetaminophen 500 mg tablet 1,000 mg PO Q6H PRN tab 12/03/14 05/14/17 History cholecalciferol (vitamin D3) 1,000 1,000 unit PO QDAY cap 12/03/14 05/14/17 History unit capsule cyanocobalamin (vit B-12) ER 1,000 1,000 mcg PO QDAY tab 12/03/14 05/14/17 History mcg tablet,extended release sevelamer carbonate 800 mg tablet 800 mg PO TIDAC 06/01/15 05/14/17 History calcium acetate 667 mg capsule 667 mg PO TIDCC 30 Days #60 cap 09/09/15 History fluoxetine 40 mg capsule 40 mg PO QDAY #90 cap 09/09/15 05/14/17 Rx estradiol 0.5 mg tablet 0.5 mg PO QDAY #30 tab 11/01/15 05/14/17 Rx simvastatin 20 mg tablet 20 mg PO HS 05/17/16 05/14/17 History trazodone 100 mg tablet 250 mg PO QHS 90 Days #225 tab 09/11/16 05/14/17 Rx Aspirin [Lite Coat Aspirin] 325 mg PO DAILY 04/13/17 05/14/17 History Clopidogrel Bisulfate [Plavix] 75 mg PO DAILY 04/13/17 05/14/17 History Budesonide [Pulmicort] 0.5 mg NEB Q12 ampul.neb 04/20/17 05/14/17 Rx Ipratropium/Albuterol [Duoneb] 3 ml NEB Q6H #1 ampul.neb 04/20/17 05/14/17 Rx Pantoprazole [Protonix] 40 mg PO QHS #1 tab 04/20/17 05/14/17 Rx guaiFENesin/DEXTROMETHORPHAN 10 ml PO Q4HP PRN ml 04/20/17 05/14/17 Rx [Robitussin Dm] suvorexant 10 mg tablet 10 mg PO HS PRN #30 tab 04/24/17 05/14/17 Rx Cefepime HCl/Dextrose, Iso-Osm 2 gm IV 3XW #3 rosiegy 04/27/17 05/14/17 Rx [Cefepime 2 gm Injection] HYDROmorphone HCL [Dilaudid] 2 mg PO Q8HP PRN #40 tab 04/27/17 05/14/17 Rx Vancomycin Per Pharmacy 1 order IV ONCE #3 miscell 04/27/17 05/14/17 Rx metroNIDAZOLE [Metronidazole] 500 mg PO TID #18 tab 04/27/17 05/14/17 Rx Allergies Allergy/AdvReac Type Severity Reaction Status Date / Time codeine Allergy Mild Hives Verified 05/14/17 19:56 Oxycodone Allergy Mild Rash Verified 05/14/17 19:56 NSAIDS (Non-Steroidal Allergy Unknown Unknown Verified 05/14/17 19:56 Anti-Inflamma meperidine [From Demerol] AdvReac Mild Itching Verified 05/14/17 19:56 Exam Temp Pulse Resp BP Pulse Ox 97.0 F 69 20 108/73 96 05/15/17 07:34 05/15/17 04:00 05/15/17 07:34 05/15/17 07:34 05/15/17 07:34 - General physical appearance well developed, well nourished, no distress, chronically ill, other (Chronic cough during the exam) - Eyes PERRL, normal ocular movement - ENT normal pinna, normal nares, normal mucosa, no hearing loss, no congestion - Head Head exam IM: Present: atraumatic, normal inspection, normocephalic - Neck no masses, no bruits, trachea midline, no lymphadectomy, no venous distension - Cardiovascular Cardiovascular exam IM: Present: normal rate and rhythm, RRR, +S1, +S2. Absent : gallop, JVD - Respiratory normal expansion, normal respiratory effort, other (Which do not clear with cough) - Abdomen Abdomen: Present: soft, non tender (Prominent fluid retention in both flanks with the right being more prominent than the left but no evidence of cellulitis ; pitting type edema which extends from mid chest level along the lateral flanks down to her ankles compatible with volume overload), bowel sounds Hernia: Present: none - Genitourinary Present: normal external genitalia - Integumentary Present: no rash, no growths, no abnormal pigmentation - Neurologic Present: normal coordination, normal sensation - Musculoskeletal Present: normal gait, normal posture - Psychiatric Present: oriented to time, oriented to person, oriented to place, speech is normal, memory intact Results - Labs 05/16/17 04:22 05/16/17 04:22 Abnormal lab results 05/14/17 05/15/17 05/15/17 Range/Units 16:00 04:40 04:40 RBC 3.45 L (4.00-5.20) M/mcL MCV 106.8 H (80.0-100.0) fL MCH 34.9 H (26.0-34.0) pg RDW 19.8 H (11.5-14.5) % MPV 10.7 H (7.4-10.4) fL Monocytes % (Manual) 18 H (1-12) % RBC Morphology Abnorm A (NORMAL) Anisocytosis 1+ A (NONE SEEN) Macrocytosis 2+ A (NONE SEEN) Ovalocytes Few A (NONE SEEN) Chloride 91 L (96-108) mmol/L Anion Gap 18.0 H (8-16) BUN 28 H (8-23) mg/dl Creatinine 6.1 H* (0.6-1.1) mg/dl C-Reactive Protein 2.1 H (0.0-0.8) mg/dl Diabetes panel 05/15/17 Range/Units 04:40 Sodium 136 (133-145) mmol/L Potassium 5.0 (3.3-5.1) mmol/L Chloride 91 L (96-108) mmol/L Carbon Dioxide 27 (22-30) mmol/L BUN 28 H (8-23) mg/dl Creatinine 6.1 H* (0.6-1.1) mg/dl Glucose 92 (70-105) mg/dL Calcium 9.6 (8.6-10.4) mg/dl AST 8 (0-37) U/l ALT 5 (0-40) U/l Alkaline Phosphatase 75 (39-117) U/L Total Protein 6.7 (5.9-8.4) gm/dL Albumin 3.6 (3.2-5.2) gm/dL Calcium panel 05/15/17 Range/Units 04:40 Calcium 9.6 (8.6-10.4) mg/dl Albumin 3.6 (3.2-5.2) gm/dL Pituitary panel 05/15/17 Range/Units 04:40 Sodium 136 (133-145) mmol/L Potassium 5.0 (3.3-5.1) mmol/L Chloride 91 L (96-108) mmol/L Carbon Dioxide 27 (22-30) mmol/L BUN 28 H (8-23) mg/dl Creatinine 6.1 H* (0.6-1.1) mg/dl Glucose 92 (70-105) mg/dL Calcium 9.6 (8.6-10.4) mg/dl Adrenal panel 05/15/17 Range/Units 04:40 Sodium 136 (133-145) mmol/L Potassium 5.0 (3.3-5.1) mmol/L Chloride 91 L (96-108) mmol/L Carbon Dioxide 27 (22-30) mmol/L BUN 28 H (8-23) mg/dl Creatinine 6.1 H* (0.6-1.1) mg/dl Glucose 92 (70-105) mg/dL Calcium 9.6 (8.6-10.4) mg/dl Total Bilirubin 0.3 (0.0-1.0) mg/dL AST 8 (0-37) U/l ALT 5 (0-40) U/l Alkaline Phosphatase 75 (39-117) U/L Total Protein 6.7 (5.9-8.4) gm/dL Albumin 3.6 (3.2-5.2) gm/dL All other labs normal. Assessment and Plan (1) Peripheral edema Status: Chronic Comment: must consider diastolic dysfunction with right heart failure and pulmonary HTN CONTRIBUTING causes (2) ESRD (end stage renal disease) on dialysis Status: Chronic (3) Fluid overload Status: Acute (4) COPD (chronic obstructive pulmonary disease) Status: Chronic Qualifiers: COPD type: chronic bronchitis Chronic bronchitis type: simple Qualified Code(s): J41.0 - Simple chronic bronchitis; J41.0 - Simple chronic bronchitis; J41.0 - Simple chronic bronchitis; J41.0 - Simple chronic bronchitis
[2017-05-15] MEDS: predniSONE 20 MG TABLET PO SCH (17:33)
--- NOTE | 2017-05-15 18:30 | Nephrology Consult Note ---
History of Present Illness - Reason for Consult Patient information: Note initiated : 05/15/17 at 6:26 pm Service Date, if different from initiated Date: [] Patient: Naz Joseph 71 y/o F admitted on 05/14/17 for Edema within Camper' s Fascia. Chief Complaint: [] Consult date: 05/15/17 - Chief Complaint right flank pain - History of Present Illness History of present illness: 71 year old female, h/o ESRD on HD on TTS schedule, admitted with right flank pain, w/ edema of Camper's fascia on imaging. She does not appear to have infection or sepsis and was afebrile without leukocytosis. She had hemodialysis today but was not able to tolerate ultrafiltration to her estimated dry weight target of 82.5 kg due to hypotension. She examines to be fluid overloaded, however I doubt that her presenting symptoms can be attributed to fluid overload. At present, she is in moderate discomfort due to right flank pain. She is not in respiratory distress but feels "congested" Review of Systems Constitutional: as per HPI Past History Past medical history: Review of systems: Please see the HPI. Otherwise a comprehensive review of systems is negative or noncontributory to the chief complaint. Medical - H&P: PMH Medical history: 1. End-stage renal disease on hemodialysis secondary to hypertensive renal disease and obstructive uropathy 2. Pulmonary fibrosis/copd 3. CAD 4. Obstructive sleep apnea 5. History of aspiration with what she describes as an esophageal stricture 6. Hypertension 7. Secondary hypothyroidism 8. Vitamin B-12 deficiency 9. Osteoarthritis 10. Fibromyalgia 11. Gout 12. Hemorrhoids Past surgical history: Surgical history: Arteriovenous fistula, acquired (Chronic) History of bariatric surgery (Chronic) History of resection of small bowel (Chronic 03/23/15) History of lithotripsy (Acute 09/21/15) History of gastrointestinal surgery (Chronic) History of rectal surgery (Chronic) History of surgery (Chronic) Hx of appendectomy (Chronic) Hx of cataract surgery (Chronic) Hx of shoulder surgery (Chronic) Hx of tonsillectomy (Chronic) S/P JOSE-BSO (Chronic) S/P nerve repair (Chronic) History of abdominal surgery (Resolved 11/03/14) History of adenoidectomy (Resolved) History of cataract surgery (Resolved) History of colonoscopy (Resolved 11/03/13) History of cystoscopy (Resolved 04/20/11) History of hammer toe correction (Resolved) History of hemorrhoidectomy (Resolved) History of hysterectomy (Resolved) History of intravenous pyelogram (Resolved 05/19/11) History of lithotripsy (Resolved 01/12/09) History of oophorectomy (Resolved) History of tonsillectomy (Resolved) History of ureter repair (Resolved 09/02/12) History of ureter stent (Resolved 11/29/08) Status post bunionectomy (Resolved) Past family history: non-contributory to presenting illness Past social history: She was at [facility] most recently. Usually resides with her at home. Denied use of tobacco, alcohol or drugs Medications and Allergies Home Medications Medication Instructions Recorded Confirmed Type acetaminophen 500 mg tablet 1,000 mg PO Q6H PRN tab 12/03/14 05/14/17 History cholecalciferol (vitamin D3) 1,000 1,000 unit PO QDAY cap 12/03/14 05/14/17 History unit capsule cyanocobalamin (vit B-12) ER 1,000 1,000 mcg PO QDAY tab 12/03/14 05/14/17 History mcg tablet,extended release sevelamer carbonate 800 mg tablet 800 mg PO TIDAC 06/01/15 05/14/17 History calcium acetate 667 mg capsule 667 mg PO TIDCC 30 Days #60 cap 09/09/15 History fluoxetine 40 mg capsule 40 mg PO QDAY #90 cap 09/09/15 05/14/17 Rx estradiol 0.5 mg tablet 0.5 mg PO QDAY #30 tab 11/01/15 05/14/17 Rx simvastatin 20 mg tablet 20 mg PO HS 05/17/16 05/14/17 History trazodone 100 mg tablet 250 mg PO QHS 90 Days #225 tab 09/11/16 05/14/17 Rx Aspirin [Lite Coat Aspirin] 325 mg PO DAILY 04/13/17 05/14/17 History Clopidogrel Bisulfate [Plavix] 75 mg PO DAILY 04/13/17 05/14/17 History Budesonide [Pulmicort] 0.5 mg NEB Q12 ampul.neb 04/20/17 05/14/17 Rx Ipratropium/Albuterol [Duoneb] 3 ml NEB Q6H #1 ampul.neb 04/20/17 05/14/17 Rx Pantoprazole [Protonix] 40 mg PO QHS #1 tab 04/20/17 05/14/17 Rx guaiFENesin/DEXTROMETHORPHAN 10 ml PO Q4HP PRN ml 04/20/17 05/14/17 Rx [Robitussin Dm] suvorexant 10 mg tablet 10 mg PO HS PRN #30 tab 04/24/17 05/14/17 Rx Cefepime HCl/Dextrose, Iso-Osm 2 gm IV 3XW #3 [email or web address] 04/27/17 05/14/17 Rx [Cefepime 2 gm Injection] HYDROmorphone HCL [Dilaudid] 2 mg PO Q8HP PRN #40 tab 04/27/17 05/14/17 Rx Vancomycin Per Pharmacy 1 order IV ONCE #3 miscell 04/27/17 05/14/17 Rx metroNIDAZOLE [Metronidazole] 500 mg PO TID #18 tab 04/27/17 05/14/17 Rx Allergies Allergy/AdvReac Type Severity Reaction Status Date / Time codeine Allergy Mild Hives Verified 05/14/17 19:56 Oxycodone Allergy Mild Rash Verified 05/14/17 19:56 NSAIDS (Non-Steroidal Allergy Unknown Unknown Verified 05/14/17 19:56 Anti-Inflamma meperidine [From Demerol] AdvReac Mild Itching Verified 05/14/17 19:56 Exam - Vital Signs Vital signs: Temp Pulse Resp BP Pulse Ox 98.4 F 69 20 86/58 93 05/15/17 16:00 05/15/17 04:00 05/15/17 16:00 05/15/17 16:00 05/15/17 16:00 - General Appearance General appearance: well-developed, well-nourished, appears started age EENT: PERRL Neck: no JVD, no thyromegaly, supple Cardiology: no murmurs, no rub, no gallops, regular rhythm, normal S1, normal S2 Gastrointestinal: tenderness Neurologic: no focal deficit Results - Lab Results 05/15/17 04:40 05/15/17 04:40 Most recent lab results Calcium 9.6 mg/dl (8.6-10.4) 05/15/17 04:40 Assessment and Plan (1) ESRD (end stage renal disease) on dialysis ESRD : s/p hemodialysis today with sub-optimal ultrafiltration - limited by intolerance and hypotension. She will be re-evaluated for dialysis needs in am tomorrow Hypertension: BP is low at present. She is not on any anti hypertensive medications. Start Midodrine 10 mg po tid. Follow BP Hyperphosphatemia: continue Sevelamer Anemia: with Hb > 10, there is not indication for Cristopher / Aranesp Status: Chronic
[2017-05-15] MEDS: MIDODRINE 5 MG TABLET PO SCH (19:45)
[2017-05-15] MEDS: LIDOCAINE PATCH TOPICAL SCH (21:53)
[2017-05-15] MEDS: SIMVASTATIN 20 MG TABLET PO SCH (21:54)
[2017-05-15] MEDS: SENNOSIDES 1 TABLET PO SCH (21:54)
[2017-05-16] MEDS: HYDROmorphone 2 MG TABLET PO PRN ×2 (02:05→14:22)
[2017-05-16] MEDS: 0.9 % SODIUM CHLORIDE 10 ML SYRINGE IV SCH ×3 (05:21→20:44)
[2017-05-16 05:33] LABS: Mean Cell Volume 105.7 fL (80.0-100.0); Mean Corpuscular HGB Conc 33.1 g/dL (31.0-36.0); Platelet Count 176 K/mcL (140-440); RBC 3.38 M/mcL (4.00-5.20); Red Cell Distribution Width 19.8 % (11.5-14.5)
[2017-05-16 05:54] LABS: ALT/SGPT < 5 U/l (0-40); Albumin 3.2 gm/dL (3.2-5.2); Albumin/Globulin Ratio 0.9 (1.0-2.3); Alkaline Phosphatase 90 U/L (39-117); Blood Urea Nitrogen 22 mg/dl (8-23)
[2017-05-16] MEDS: HYDROmorphone 2 MG/ML SYRINGE IV SCH (07:43)
[2017-05-16 07:49] LABS: Anisocytosis 1+ (NONE SEEN); Band Neutrophils % 3 % (0-10); Lymphocytes % 10 % (15-49); Macrocytosis 2+ (NONE SEEN); Monocytes % (Manual) 6 % (1-12); Platelet Estimate NORMAL (NORMAL); RBC Morphology ABNORM (NORMAL); Segmented Neutrophils % 81 % (38-78)
[2017-05-16] MEDS: MIDODRINE 5 MG TABLET PO SCH ×3 (07:52→17:30)
[2017-05-16] MEDS: SEVELAMER 800 MG TABLET PO SCH ×3 (07:52→17:31)
[2017-05-16] MEDS: predniSONE 20 MG TABLET PO SCH (07:52)
[2017-05-16] MEDS: CLOPIDOGREL 75 MG TABLET PO SCH (08:52)
[2017-05-16] MEDS: HEPARIN 5,000 UNIT/ML VIAL SQ SCH ×2 (08:52→20:45)
[2017-05-16] MEDS: CYANOCOBALAMIN (VITAMIN B-12) 500 MCG TABLET PO SCH (08:52)
[2017-05-16] MEDS: ASPIRIN 81 MG TAB.CHEW PO SCH (08:52)
--- NOTE | 2017-05-16 12:21 | Internal Med Progress Note ---
Medical - PN: Subj Patient information: Note initiated : 05/16/17 at 12:21 pm Service Date, if different from initiated Date: [] Patient: Naz Joseph a 71 y/o F admitted on 05/14/17 for Edema within Camper' s Fascia. Chief Complaint: [] Interval history: May 14, 2017: History of present illness: Ms. Joseph is a 71 year old F with a complicated past medical history including end-stage renal disease on dialysis, pulmonary fibrosis, COPD, BIN, hypertension and coronary artery disease who was recently admitted 04/24-04/27 with chest pain and treated for pneumonia and volume overload. Of note, at that time she was found to have aspiration and she tells me she was found to have an esophageal stricture requiring dilatation with EGD. She still has some residual cough, but is not requiring oxygen and overall is feeling better from her pneumonia. She has been rehabilitating at [facility] and was in her usual state of health until 2 days ago when she had nonbilious, nonbloody emesis 1. She felt fine afterwards but awoke this morning with acute, severe right flank pain. She received a dose of oral Dilaudid at [facility] with no improvement of her symptoms. She is transferred to the ER and was found to have edema of the Camper's fascia on CT scan. She denies any history of trauma to the area. She denies fevers or chills. Her pain does not change with position. She makes minimal urine. May 15: Her right flank pain was controlled while still but severely exacerbated while walking with physical therapy. She states po pain meds do not even touch the pain and IV Dilaudid only takes the edge off for about an hour. Again denies any trauma. I discussed case with Dr. Ricketts (surgery) who will see pt this afternoon. ROS: no fever or nausea May 16: Today, the patient says she is feeling better. She continues to have a cough, but says this has never really gone away since September of this year. She does note that she is having some pain in her right lower rib cage with coughing as well as with deep breathing. Otherwise, she denies fevers or chills, other chest pain or shortness of breath , nausea or vomiting, diarrhea or dysuria. Because her pain is worse with coughing and breathing, d-dimer was ordered, and was positive. CT angiogram of the chest was done, which does not show PE. She was also seen by Dr. Souza of nephrology today. He is to feel she is still significantly above her ideal dry weight, so was dialyzed again today. - Constitutional Vitals: Vital Signs Temp Pulse Resp BP Pulse Ox 96.5 F L 77 20 99/64 92 05/16/17 06:43 05/16/17 04:00 05/16/17 06:43 05/16/17 06:43 05/16/17 06:43 Period Temp Pulse Resp BP Sys/Millan Pulse Ox Last 24 Hr 96.5 F-98.4 F 77-80 16-24 86-99/58-66 88-96 Intake and Output 05/15/17 05/16/17 05/16/17 21:59 05:59 13:59 Intake Total 360 / 360 450 / 450 240 / 240 Balance 360 / 360 450 / 450 240 / 240 Weight 203 lb 6.4 oz 203 lb 6 oz Patient Weight 05/17/17 05:59 Weight 203 lb 6 oz Intake & Output: Intake & Output 05/15/17 05/16/17 05/16/17 21:59 05:59 13:59 Intake Total 360 / 360 450 / 450 240 / 240 Balance 360 / 360 450 / 450 240 / 240 Weight 203 lb 6.4 oz 203 lb 6 oz Intake: Oral 360 / 360 450 / 450 240 / 240 Other: Meal Dinner Breakfast Percent of Meal Consumed 100% 100% Feeding Ability Independent Independent On exam, she is in no acute distress. Neck is supple without obvious lymphadenopathy or JVD. Cardiac exam shows regular rate and rhythm. Lungs are clear to auscultation. Abdomen is soft, with minimal right upper quadrant pain to palpation. Bowel sounds are active. Extremities show about 1+ ankle edema. Neurologic exam is grossly nonfocal. Medical - PN: Obj Da - Labs CBC & Chem 7: 05/16/17 04:22 05/16/17 04:22 Labs: Abnormal Lab Results 05/16/17 05/16/17 05/16/17 09:03 04:22 04:22 RBC 3.38 L Hgb 11.9 L Hct 35.8 L MCV 105.7 H MCH 35.0 H RDW 19.8 H MPV Worth % (Auto) Lymph # (Auto) Worth # (Auto) Seg Neutrophils % 81 H Lymphocytes % 10 L Monocytes % (Manual) RBC Morphology Abnorm A Anisocytosis 1+ A Macrocytosis 2+ A Ovalocytes D-Dimer 6.37 H Chloride 93 L Anion Gap BUN Creatinine 4.2 H Glucose 152 H Total Creatine Kinase C-Reactive Protein Albumin/Globulin Ratio 0.9 L 05/15/17 05/15/17 05/15/17 04:40 04:40 04:40 RBC 3.45 L Hgb Hct MCV 106.8 H MCH 34.9 H RDW 19.8 H MPV 10.7 H Worth % (Auto) Lymph # (Auto) Worth # (Auto) Seg Neutrophils % Lymphocytes % Monocytes % (Manual) 18 H RBC Morphology Abnorm A Anisocytosis 1+ A Macrocytosis 2+ A Ovalocytes Few A D-Dimer Chloride 91 L Anion Gap 18.0 H BUN 28 H Creatinine 6.1 H* Glucose Total Creatine Kinase 10 L C-Reactive Protein Albumin/Globulin Ratio 05/14/17 05/14/17 05/14/17 16:00 12:17 12:17 RBC 3.55 L Hgb Hct MCV 105.6 H MCH 34.5 H RDW 20.1 H MPV Worth % (Auto) 16.3 H Lymph # (Auto) 1.3 L Worth # (Auto) 1.2 H Seg Neutrophils % Lymphocytes % Monocytes % (Manual) RBC Morphology Anisocytosis Macrocytosis Ovalocytes D-Dimer Chloride 91 L Anion Gap 18.0 H BUN 24 H Creatinine 5.3 H* Glucose 117 H Total Creatine Kinase C-Reactive Protein 2.1 H Albumin/Globulin Ratio May 16: D-dimer is elevated at 6.3 CT angiogram of the chest: IMPRESSION: No evidence of pulmonary embolus. Mild enlargement of the central pulmonary arteries suggesting pulmonary hypertension - this is a chronic finding. Moderate pericardial effusion with increased fluid density suggesting hemopericardium or, less likely, inflammation. This is progressed from the CT three months ago. Moderate atelectasis within the right middle lobe, lingula and both lower lobes as described. Moderate bilateral pleural effusions - all new. Mediastinal adenopathy new. Small amount of ascites - new. Etiology unknown May 14: Nasal MRSA screen is negative. Blood cultures are negative so far. Chest x-ray:IMPRESSION: Small densely consolidated regions of atelectasis or infiltrate in both lower lobes with small effusions. CT of the abdomen: IMPRESSION: Large amount of edema within Camper's fascia over the right flank - new from the comparison CT two months ago. This may be posttraumatic or inflammatory. Small hemopericardium - slightly improved from exam two months prior. Suspect is related to chronic renal disease. Moderate left and small right pleural effusions with moderate bibasilar airspace disease most likely atelectasis rather than infiltrate - new from prior study. Marked bilateral renal atrophy bilaterally end-stage renal failure. Multiple nonobstructing stones in the calyces of both kidneys. 3 cm benign adenoma left adrenal gland which demonstrates long-term stability. Small amount of free fluid in the deep true pelvis - increased from previous study. Small bowel resection changes in the left upper quadrant with primary anastomosis. 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 No change Meds: Medications Albuterol/Ipratropium (Duoneb) 3 ml NEB Q4HP PRN PRN Reason: Wheezing Aspirin (Aspirin) 81 mg PO DAILY [facility] Last Admin: 05/16/17 08:52 Dose: 81 mg Bisacodyl (Dulcolax) 10 mg HI Q2-3DAYS PRN PRN Reason: Constipation Clopidogrel Bisulfate (Plavix) 75 mg PO DAILY [facility] Last Admin: 05/16/17 08:52 Dose: 75 mg Cyanocobalamin (Vitamin B-12) 1,000 mcg PO DAILY [facility] Last Admin: 05/16/17 08:52 Dose: 1,000 mcg Heparin Sodium (Porcine) (Heparin) 5,000 unit SQ Q12 [facility] Last Admin: 05/16/17 08:52 Dose: 5,000 unit Hydromorphone HCl (Dilaudid) 1 mg IV Q2HP PRN PRN Reason: PAIN LEVEL > 6 Hydromorphone HCl (Dilaudid) 4 mg PO Q4HP PRN PRN Reason: PAIN LEVEL 3-6 Last Admin: 05/16/17 02:05 Dose: 4 mg Lidocaine (Lidoderm) 1 patch TOPICAL HS [facility] Last Admin: 05/15/17 21:53 Dose: 1 patch Midodrine (Midodrine Hcl) 10 mg PO TID@0800,1200,1700 [facility] Last Admin: 05/16/17 12:12 Dose: 10 mg Ondansetron HCl (Zofran) 4 mg IV Q6HP PRN PRN Reason: Nausea And Vomiting Prednisone (Prednisone) 40 mg PO QAMCC [facility] Last Admin: 05/16/17 07:52 Dose: 40 mg Senna (Senokot) 2 tab PO [facility] Last Admin: 05/15/17 21:54 Dose: 2 tab Sevelamer Carbonate (Renvela) 800 mg PO TIDCC [facility] Last Admin: 05/16/17 12:13 Dose: 800 mg Simvastatin (Zocor) 20 mg PO [facility] Last Admin: 05/15/17 21:54 Dose: 20 mg Sodium Chloride (Saline Flush) 10 ml IV Q8 [facility] Last Admin: 05/16/17 05:21 Dose: 10 ml Medical - PN: A/P - Time Spent With Patient Total time spent is greater than 50% in coordination of care (as documented) at patient's floor/unit and/or counseling patient: 25 - 35 minutes - Narrative A/P Narrative: #1. Right flank pain -with edema of Camper's fascia on CT scan-->"fasciitis". CRP and PCT reassuring. No fevers or WBC. She has recently been on broad spectrum antibiotics and is at risk of C diff. Will trend CRP and PCT. -Clinically, the patient is improving. Dr. Ricketts did not feel that there are signs of active infection. -She appears to have a significant total body volume overload issue, according to nephrology. It is unclear if this is playing a role in her discomfort. -She did have some pleuritic component to her pain today, so CT angiogram was done. This does not show PE. It does show continued excess fluid in her lungs and pericardium as well as ascites. #2. End stage renal disease on dialysis--HD T, , Sat. -Patient is approximately 10 kg above her dry weight. Dr. Souza continues to adjust her dialysis. #3. CAD--cont ASA/Plavix, simvastatin 20 QHS #4. Fibromyalgia--occasionally uses po Dilaudid. Multiple opiate intolerances. Cont home fluoxetine #5. B12 deficiency--h/o gastric bypass. Cont daily replacement #6. DVT prophylaxis--heparin #7. CODE STATUS--DNR. Short-term intubation OK. AMILCAROA is her friend, Holli Rodriguez. Approximately 30 minutes was spent today, reviewing her case, reviewing her test results, interviewing and examining her, touching base with nephrology, and writing orders. Medical - PN: Qual - VTE Deep Vein Thrombosis/Pulmonary Embolism Present on Admission: No
--- NOTE | 2017-05-16 15:49 | Cat Scan Report ---
CLINICAL INFORMATION: Right-sided chest pain elevated d-dimer COMPARISON: Chest CT from 10/16/2014 and 02/01/2016. TECHNIQUE: 80 cc of Isovue-300 were injected intravenously. Using SmartPrep to maximize pulmonary artery opacification, 2.5 mm helical slices were obtained from the lung apices through the lung bases. Following reconstruction, 2.5 mm sagittal, coronal, and axial reformations were processed. The exam was reviewed at mediastinal, lung, and bone windows. The exam was performed using radiation dose optimization techniques including, but not limited to, automated exposure control, adjustment of the mA and/or kV according to patient size and use of iterative reconstruction technique. FINDINGS: Mediastinal windows show the pulmonary arteries are moderately enlarged centrally: the main pulmonary diameter is 3.6 cm. This finding is stable since 10/16/2014. The arteries are well opacified - no evidence of embolus. The thoracic aorta is normal in contour and caliber. The heart is borderline enlarged. Moderate chronic pericardial effusion has worsened slightly from the previous study. There are mildly enlarged mediastinal lymph nodes in the pericarinal, right peritracheal, AP window and left upper mediastinal region greater than 10 in number ranging up to 10 mm in AP window. These have increased in size and number from the previous study. Pulmonary parenchymal windows show complete atelectasis of the right middle lobe, both medial and posterior basilar segments of the lower lobes and lingula. Moderate bilateral pleural effusions have developed since the CT just three months prior. Scattered well-circumscribed small pulmonary nodules demonstrate long-term stability - no new nodules. The bones and soft tissues of the chest wall are unremarkable. Images through the upper abdomen show small amount of ascites in the perihepatic and perisplenic region - also new. IMPRESSION: No evidence of pulmonary embolus. Mild enlargement of the central pulmonary arteries suggesting pulmonary hypertension - this is a chronic finding Moderate pericardial effusion with increased fluid density suggesting hemopericardium or, less likely, inflammation. This is progressed from the CT three months ago Moderate atelectasis within the right middle lobe, lingula and both lower lobes as described. Moderate bilateral pleural effusions - all new. Mediastinal adenopathy new Small amount of ascites - new. Etiology unknown Interpreted and Authenticated by: Fortino Mendoza 05/16/17
--- NOTE | 2017-05-16 18:02 | Nephrology Progress Note ---
Subjective Patient information: Note initiated : 05/16/17 at 5:58 pm Service Date, if different from initiated Date: [] Patient: Naz Joseph a 71 y/o F admitted on 05/14/17 for Edema within Camper' s Fascia. Chief Complaint: [] Interval history: Naz was seen at dialysis. BP is low normal. She was 10 kgs above her dry weight in am today. She at risk for worsening fluid overload / pulmonary edema. UF target is 3.5-4.0 L. However, this is limited by her low-normal BP. She has been started on Midodrine, however, this has not been historically helpful in preventing intra-dialytic hypotension. She is receiving HD at present. Re- evaluate in am tomorrow for dialysis Objective - Vital Signs Vital signs: Vital Signs Temp Pulse Resp BP Pulse Ox 05/16/17 16:00 96.2 F L 115/80 91 05/16/17 06:43 96.5 F L 20 99/64 92 05/16/17 04:00 97.7 F 77 22 94/62 96 05/15/17 23:53 97.9 F 80 22 95/66 94 05/15/17 21:35 16 93 05/15/17 20:00 98.1 F 79 24 H 90/60 93 Intake and Output 05/16/17 05/16/17 05/16/17 05:59 13:59 21:59 Intake Total 450 / 450 240 / 240 360 / 360 Balance 450 / 450 240 / 240 360 / 360 Intake: Oral 450 / 450 240 / 240 360 / 360 Other: Meal Lunch Percent of Meal Consumed 100% Feeding Ability Independent Weight 203 lb 6 oz Patient Weight 05/17/17 05:59 Weight 203 lb 6 oz Intake & Output: Intake & Output 05/16/17 05/16/17 05/16/17 05:59 13:59 21:59 Intake Total 450 / 450 240 / 240 360 / 360 Balance 450 / 450 240 / 240 360 / 360 Weight 203 lb 6 oz Intake: Oral 450 / 450 240 / 240 360 / 360 Other: Meal Lunch Percent of Meal Consumed 100% Feeding Ability Independent - Lab 05/16/17 04:22 05/16/17 04:22 Most recent lab results Calcium 9.4 mg/dl (8.6-10.4) 05/16/17 04:22 Assessment and Plan (1) ESRD (end stage renal disease) on dialysis Status: Chronic
[2017-05-16] MEDS: LIDOCAINE PATCH TOPICAL SCH (20:44)
[2017-05-16] MEDS: SENNOSIDES 1 TABLET PO SCH (20:44)
[2017-05-16] MEDS: SIMVASTATIN 20 MG TABLET PO SCH (20:44)
[2017-05-17] MEDS: HYDROmorphone 2 MG TABLET PO PRN ×2 (00:52→19:39)
[2017-05-17] MEDS ORDERED: traZODone HCL 100 MG TABLET PO SCH (00:59)
[2017-05-17] MEDS ORDERED: traZODone HCL 50 MG TABLET ONE (01:15)
[2017-05-17] MEDS: 0.9 % SODIUM CHLORIDE 10 ML SYRINGE IV SCH ×2 (05:31→22:06)
[2017-05-17 06:54] LABS: Mean Cell Volume 106.8 fL (80.0-100.0); Mean Corpuscular HGB Conc 32.7 g/dL (31.0-36.0); Mean Corpuscular Hemoglobin 34.9 pg (26.0-34.0); Platelet Count 197 K/mcL (140-440); RBC 3.47 M/mcL (4.00-5.20); Red Cell Distribution Width 19.6 % (11.5-14.5)
[2017-05-17 07:32] LABS: ALT/SGPT 7 U/l (0-40); Albumin 3.4 gm/dL (3.2-5.2); Albumin/Globulin Ratio 1.1 (1.0-2.3); Alkaline Phosphatase 85 U/L (39-117); Blood Urea Nitrogen 15 mg/dl (8-23)
[2017-05-17] MEDS: predniSONE 20 MG TABLET PO SCH (08:23)
[2017-05-17] MEDS: SEVELAMER 800 MG TABLET PO SCH ×3 (08:23→17:56)
[2017-05-17] MEDS: MIDODRINE 5 MG TABLET PO SCH ×3 (08:23→17:24)
[2017-05-17 09:14] LABS: Anisocytosis 1+ (NONE SEEN); Band Neutrophils % 2 % (0-10); Lymphocytes % 26 % (15-49); Macrocytosis 2+ (NONE SEEN); Monocytes % (Manual) 10 % (1-12); Platelet Estimate NORMAL (NORMAL); RBC Morphology ABNORM (NORMAL); Segmented Neutrophils % 62 % (38-78)
[2017-05-17] MEDS: CLOPIDOGREL 75 MG TABLET PO SCH (09:17)
[2017-05-17] MEDS: CYANOCOBALAMIN (VITAMIN B-12) 500 MCG TABLET PO SCH (09:17)
[2017-05-17] MEDS: HEPARIN 5,000 UNIT/ML VIAL SQ SCH ×2 (09:17→22:06)
[2017-05-17] MEDS: ASPIRIN 81 MG TAB.CHEW PO SCH (09:17)
[2017-05-17] MEDS ORDERED: IPRATROPIUM/ALBUTEROL 3 ML AMPUL.NEB NEB PRN (16:59)
[2017-05-17] MEDS ORDERED: ONDANSETRON 4 MG/2 ML VIAL IV PRN (16:59)
[2017-05-17] MEDS ORDERED: BISACODYL 10 MG SUPP.RECT PR PRN (16:59)
--- NOTE | 2017-05-17 17:49 | Nephrology Progress Note ---
Subjective Patient information: Note initiated : 05/17/17 at 5:46 pm Service Date, if different from initiated Date: [] Patient: Naz Joseph a 71 y/o F admitted on 05/17/17 for Edema within Camper' s Fascia. Chief Complaint: [] Principal diagnosis: right flank pain; fluid overload; pericardial effusion Interval history: Naz denied dyspnea. She is however, grossly edematous. Discharge was held since she is about 10 kg above her dry weight. UF was limited to 1.7 L at HD last night due to intolerance and hypotension. Her dry weight is set at 82.5 kg however this may not be her true "dry weight", as ultrafiltration at dialysis is limited due to hypotension. CTA of chest did not PE, however she she has pleural effusions and pericardial effusion increased from prior studies. Objective - Vital Signs Vital signs: Vital Signs Temp Pulse Resp BP Pulse Ox 05/17/17 16:00 96.7 F L 20 108/76 95 05/17/17 12:00 96.7 F L 20 109/67 97 05/17/17 07:26 96.4 F L 20 96/62 97 05/17/17 04:00 98.0 F 78 20 93/62 94 05/17/17 00:00 98.3 F 82 20 89/57 92 05/16/17 20:40 93 05/16/17 20:35 97.5 F 88 20 103/68 93 Intake and Output 05/17/17 05/17/17 05/17/17 05:59 13:59 21:59 Intake Total 200 / 200 Balance 200 / 200 Intake: Oral 200 / 200 Other: Weight 201 lb 9.6 oz Patient Weight 05/18/17 05:59 Weight 201 lb 9.6 oz Intake & Output: Intake & Output 05/17/17 05/17/17 05/17/17 05:59 13:59 21:59 Intake Total 200 / 200 Balance 200 / 200 Weight 201 lb 9.6 oz Intake: Oral 200 / 200 - General Appearance General appearance: obese, frail EENT: ATNC, vision intact Neck: no JVD, no thyromegaly, supple Cardiology: no murmurs, no rub, regular rhythm Gastrointestinal: tenderness Neurologic: no focal deficit, CN 3-12 intact - Lab 05/17/17 04:55 05/17/17 04:55 Most recent lab results Calcium 9.4 mg/dl (8.6-10.4) 05/17/17 04:55 Assessment and Plan (1) ESRD (end stage renal disease) on dialysis Plan for hemodialysis today as in patient. As noted in interval history, she has fluid overload and ultrafiltration at dialysis is limited by physical intolerance and hypotension. Last night she had hemodialysis with low temp. and sodium modelling. She is trying to restrict her fluid and sodium intake. The fact that she is anuric does not help with volume control. No indication for Aranesp with Hb > 12. Continue Renvela. Plan for hemodialysis daily for next consecutive 5 days (except Sunday). At present, she is not stable for discharge as she is at risk for acute respiratory distress / pulmonary edema. Status: Chronic
[2017-05-17] MEDS: HYDROmorphone 2 MG/ML SYRINGE IV PRN (19:39)
--- NOTE | 2017-05-17 19:57 | Internal Med Progress Note ---
Medical - PN: Subj Patient information: Note initiated : 05/17/17 at 7:55 pm Service Date, if different from initiated Date: [] Patient: Naz Joseph a 71 y/o F admitted on 05/17/17 for Edema within Camper' s Fascia. Chief Complaint: [] Interval history: May 14, 2017: History of present illness: Ms. Joseph is a 71 year old F with a complicated past medical history including end-stage renal disease on dialysis, pulmonary fibrosis, COPD, BIN, hypertension and coronary artery disease who was recently admitted 04/24-04/27 with chest pain and treated for pneumonia and volume overload. Of note, at that time she was found to have aspiration and she tells me she was found to have an esophageal stricture requiring dilatation with EGD. She still has some residual cough, but is not requiring oxygen and overall is feeling better from her pneumonia. She has been rehabilitating at [facility] and was in her usual state of health until 2 days ago when she had nonbilious, nonbloody emesis 1. She felt fine afterwards but awoke this morning with acute, severe right flank pain. She received a dose of oral Dilaudid at [facility] with no improvement of her symptoms. She is transferred to the ER and was found to have edema of the Camper's fascia on CT scan. She denies any history of trauma to the area. She denies fevers or chills. Her pain does not change with position. She makes minimal urine. May 15: Her right flank pain was controlled while still but severely exacerbated while walking with physical therapy. She states po pain meds do not even touch the pain and IV Dilaudid only takes the edge off for about an hour. Again denies any trauma. I discussed case with Dr. Ricketts (surgery) who will see pt this afternoon. ROS: no fever or nausea May 16: Today, the patient says she is feeling better. She continues to have a cough, but says this has never really gone away since September of this year. She does note that she is having some pain in her right lower rib cage with coughing as well as with deep breathing. Otherwise, she denies fevers or chills, other chest pain or shortness of breath , nausea or vomiting, diarrhea or dysuria. Because her pain is worse with coughing and breathing, d-dimer was ordered, and was positive. CT angiogram of the chest was done, which does not show PE. She was also seen by Dr. Souza of nephrology today. He is to feel she is still significantly above her ideal dry weight, so was dialyzed again today. May 17: Today, the patient continues to have mild dyspnea with exertion, and is still worried about this significant edema in her lower extremities which is causing discomfort. She is rather depressed about the fact that her CAT scan showed fluid in all of her tissues. Dr. Souza reviewed her weight today, and she did not lose much since dialysis yesterday. So far she has been unable to tolerate higher volume losses with dialysis, due to hypotension which is symptomatic. Regarding her significant pericardial effusion, which may be affecting blood pressure, pleural effusions, ascites, and significant peripheral edema, Dr. Souza is now recommending daily dialysis for smaller volumes, to try to achieve some tolerable overall volume loss to get her closer to her ideal dry weight. The patient otherwise denies fever or chills, chest pain or palpitations, abdominal pain, nausea or vomiting or diarrhea. She has minimal urine output. - Constitutional Vitals: Vital Signs Temp Pulse Resp BP Pulse Ox 97.5 F 75 20 106/61 95 05/17/17 17:59 05/17/17 19:34 05/17/17 16:00 05/17/17 19:34 05/17/17 16:00 Period Temp Pulse Resp BP Sys/Millan Pulse Ox Last 24 Hr 96.4 F-98.3 F 75-88 20-20 89-109/57-76 92-97 Intake and Output 05/17/17 05/17/17 05/17/17 05:59 13:59 21:59 Intake Total 200 / 200 Balance 200 / 200 Weight 201 lb 9.6 oz Patient Weight 05/18/17 05:59 Weight 201 lb 9.6 oz Weight has varied from 202- 203-201-201 pounds. Intake & Output: Intake & Output 05/17/17 05/17/17 05/17/17 05:59 13:59 21:59 Intake Total 200 / 200 Balance 200 / 200 Weight 201 lb 9.6 oz Intake: Oral 200 / 200 On exam, she is in no acute distress. Neck is supple without obvious lymphadenopathy or JVD. Cardiac exam shows regular rate and rhythm. Lungs have soft scattered wheezes, mainly in the upper lobes. Abdomen is soft, with minimal right upper quadrant pain to palpation. Bowel sounds are active. Extremities show about 2+ ankle edema. Neurologic exam is grossly nonfocal. Medical - PN: Obj Da - Labs CBC & Chem 7: 05/17/17 04:55 05/17/17 04:55 Labs: Abnormal Lab Results 05/17/17 05/17/17 05/16/17 04:55 04:55 09:03 RBC 3.47 L Hgb Hct MCV 106.8 H MCH 34.9 H RDW 19.6 H MPV 10.5 H Seg Neutrophils % Lymphocytes % Monocytes % (Manual) RBC Morphology Abnorm A Anisocytosis 1+ A Macrocytosis 2+ A Ovalocytes D-Dimer 6.37 H Chloride Anion Gap 17.0 H BUN Creatinine 2.8 H Glucose 128 H Total Creatine Kinase Albumin/Globulin Ratio 05/16/17 05/16/17 05/15/17 04:22 04:22 04:40 RBC 3.38 L Hgb 11.9 L Hct 35.8 L MCV 105.7 H MCH 35.0 H RDW 19.8 H MPV Seg Neutrophils % 81 H Lymphocytes % 10 L Monocytes % (Manual) RBC Morphology Abnorm A Anisocytosis 1+ A Macrocytosis 2+ A Ovalocytes D-Dimer Chloride 93 L Anion Gap BUN Creatinine 4.2 H Glucose 152 H Total Creatine Kinase 10 L Albumin/Globulin Ratio 0.9 L 05/15/17 05/15/17 04:40 04:40 RBC 3.45 L Hgb Hct MCV 106.8 H MCH 34.9 H RDW 19.8 H MPV 10.7 H Seg Neutrophils % Lymphocytes % Monocytes % (Manual) 18 H RBC Morphology Abnorm A Anisocytosis 1+ A Macrocytosis 2+ A Ovalocytes Few A D-Dimer Chloride 91 L Anion Gap 18.0 H BUN 28 H Creatinine 6.1 H* Glucose Total Creatine Kinase Albumin/Globulin Ratio May 17: Nasal MRSA screen is negative. May 16: D-dimer is elevated at 6.3 CT angiogram of the chest: IMPRESSION: No evidence of pulmonary embolus. Mild enlargement of the central pulmonary arteries suggesting pulmonary hypertension - this is a chronic finding. Moderate pericardial effusion with increased fluid density suggesting hemopericardium or, less likely, inflammation. This is progressed from the CT three months ago. Moderate atelectasis within the right middle lobe, lingula and both lower lobes as described. Moderate bilateral pleural effusions - all new. Mediastinal adenopathy new. Small amount of ascites - new. Etiology unknown May 14: Nasal MRSA screen is negative. Blood cultures are negative so far. Chest x-ray:IMPRESSION: Small densely consolidated regions of atelectasis or infiltrate in both lower lobes with small effusions. CT of the abdomen: IMPRESSION: Large amount of edema within Camper's fascia over the right flank - new from the comparison CT two months ago. This may be posttraumatic or inflammatory. Small hemopericardium - slightly improved from exam two months prior. Suspect is related to chronic renal disease. Moderate left and small right pleural effusions with moderate bibasilar airspace disease most likely atelectasis rather than infiltrate - new from prior study. Marked bilateral renal atrophy bilaterally end-stage renal failure. Multiple nonobstructing stones in the calyces of both kidneys. 3 cm benign adenoma left adrenal gland which demonstrates long-term stability. Small amount of free fluid in the deep true pelvis - increased from previous study. Small bowel resection changes in the left upper quadrant with primary anastomosis. 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 No change Meds: Medications Albuterol/Ipratropium (Duoneb) 3 ml NEB Q4HP PRN PRN Reason: Wheezing Aspirin (Aspirin) 81 mg PO DAILY [facility] Bisacodyl (Dulcolax) 10 mg [place] Q2-3DAYS PRN PRN Reason: Constipation Clopidogrel Bisulfate (Plavix) 75 mg PO DAILY [facility] Cyanocobalamin (Vitamin B-12) 1,000 mcg PO DAILY [facility] Heparin Sodium (Porcine) (Heparin) 5,000 unit SQ Q12 [facility] Hydromorphone HCl (Dilaudid) 1 mg IV Q2HP PRN PRN Reason: PAIN LEVEL > 6 Last Admin: 05/17/17 19:39 Dose: 1 mg Hydromorphone HCl (Dilaudid) 4 mg PO Q4HP PRN PRN Reason: PAIN LEVEL 3-6 Last Admin: 05/17/17 19:39 Dose: 4 mg Lidocaine (Lidoderm) 1 patch TOPICAL HS [facility] Lidocaine (Lidoderm) 0 patch TOPICAL DAILY [facility] Midodrine (Midodrine Hcl) 10 mg PO TID@0800,1200,1700 [facility] Last Admin: 05/17/17 17:24 Dose: 10 mg Ondansetron HCl (Zofran) 4 mg IV Q6HP PRN PRN Reason: Nausea And Vomiting Prednisone (Prednisone) 40 mg PO QAC [facility] Senna (Senokot) 2 tab PO HS [facility] Sevelamer Carbonate (Renvela) 800 mg PO TIDCC [facility] Last Admin: 05/17/17 17:56 Dose: Not Given Simvastatin (Zocor) 20 mg PO [facility] Sodium Chloride (Saline Flush) 10 ml IV Q8 [facility] Trazodone HCl (Desyrel) 250 mg PO HS [facility] Medical - PN: A/P - Time Spent With Patient Total time spent is greater than 50% in coordination of care (as documented) at patient's floor/unit and/or counseling patient: 25 - 35 minutes - Narrative A/P Narrative: #1. Right flank pain -with edema of Camper's fascia on CT scan-->"fasciitis". CRP and PCT reassuring. No fevers or WBC. She has recently been on broad spectrum antibiotics and is at risk of C diff. Will trend CRP and PCT. -Clinically, the patient is improving. Dr. Ricketts did not feel that there are signs of active infection. -She appears to have a significant total body volume overload issue, according to nephrology. It is unclear if this is playing a role in her discomfort. - CT angiogram was done. This does not show PE. It does show continued excess fluid in her lungs and pericardium as well as ascites. #2. End stage renal disease on dialysis--HD T, , Sat. -Patient is approximately 10 kg above her dry weight. Dr. Souza feels that we are not making any progress with getting her closer to her dry weight. He strongly suggest daily dialysis with smaller volume diuresis , in the hopes that she could tolerate this without significant hypotension. There is also some concern that the size of her pericardial effusion could be impacting her blood pressures. This plan was reviewed with Dr. Valentin from nephrology, and she agrees. Transfer patient to inpatient status, to start doing daily dialysis. #3. CAD--cont ASA/Plavix, simvastatin 20 QHS #4. Fibromyalgia--occasionally uses po Dilaudid. Multiple opiate intolerances. Cont home fluoxetine #5. B12 deficiency--h/o gastric bypass. Cont daily replacement #6. DVT prophylaxis--heparin #7. CODE STATUS--DNR. Short-term intubation OK. HCPOA is her friend, Holli Rodriguez. Approximately 45 minutes was spent today, reviewing her case, reviewing her test results, interviewing and examining her, touching base with both laboratory technician, reviewing plan of care with 13, and then writing orders. Medical - PN: Qual - VTE Deep Vein Thrombosis/Pulmonary Embolism Present on Admission: No
[2017-05-17] MEDS ORDERED: traZODone HCL 50 MG TABLET PO SCH (21:00)
[2017-05-17] MEDS: LIDOCAINE PATCH TOPICAL SCH (22:05)
[2017-05-17] MEDS: SENNOSIDES 1 TABLET PO SCH (22:06)
[2017-05-17] MEDS: traZODone HCL 50 MG TABLET PO SCH (22:06)
[2017-05-17] MEDS: SIMVASTATIN 20 MG TABLET PO SCH (22:06)
[2017-05-18] MEDS: 0.9 % SODIUM CHLORIDE 10 ML SYRINGE IV SCH ×3 (05:13→20:39)
[2017-05-18 05:32] LABS: Mean Cell Volume 107.7 fL (80.0-100.0); Mean Corpuscular HGB Conc 32.5 g/dL (31.0-36.0); Platelet Count 212 K/mcL (140-440); RBC 3.48 M/mcL (4.00-5.20); Red Cell Distribution Width 20.3 % (11.5-14.5)
[2017-05-18 05:52] LABS: ALT/SGPT 8 U/l (0-40); Albumin 3.5 gm/dL (3.2-5.2); Alkaline Phosphatase 81 U/L (39-117); Blood Urea Nitrogen 12 mg/dl (8-23)
[2017-05-18 06:13] LABS: Anisocytosis 2+ (NONE SEEN); Lymphocytes % 17 % (15-49); Macrocytosis 2+ (NONE SEEN); Monocytes % (Manual) 15 % (1-12); Platelet Estimate NORMAL (NORMAL); RBC Morphology ABNORM (NORMAL); Segmented Neutrophils % 68 % (38-78)
[2017-05-18] MEDS: SEVELAMER 800 MG TABLET PO SCH ×3 (07:30→18:18)
[2017-05-18] MEDS: MIDODRINE 5 MG TABLET PO SCH ×3 (07:30→18:17)
[2017-05-18] MEDS: predniSONE 20 MG TABLET PO SCH (07:30)
[2017-05-18] MEDS: HYDROmorphone 2 MG TABLET PO PRN ×2 (08:08→20:33)
[2017-05-18] MEDS: HEPARIN 5,000 UNIT/ML VIAL SQ SCH ×2 (10:19→20:38)
[2017-05-18] MEDS: ASPIRIN 81 MG TAB.CHEW PO SCH (10:20)
[2017-05-18] MEDS: CYANOCOBALAMIN (VITAMIN B-12) 500 MCG TABLET PO SCH (10:20)
[2017-05-18] MEDS: LIDOCAINE PATCH TOPICAL SCH ×2 (10:20→20:33)
[2017-05-18] MEDS: CLOPIDOGREL 75 MG TABLET PO SCH (10:20)
[2017-05-18] MEDS ORDERED: ALBUTEROL SULFATE 2.5 MG/3 ML NEBULIZER NEB PRN (10:52)
[2017-05-18] MEDS ORDERED: guaiFENesin/DEXTROMETHORPHAN ORAL SOL PO PRN (10:55)
--- NOTE | 2017-05-18 10:55 | Internal Med Progress Note ---
Medical - PN: Subj Patient information: Note initiated : 05/18/17 at 10:55 am Patient: Naz Joseph a 71 y/o F admitted on 05/17/17 for Edema within Camper' s Fascia. Interval history: May 14, 2017: History of present illness: Ms. Joseph is a 71 year old F with a complicated past medical history including end-stage renal disease on dialysis, pulmonary fibrosis, COPD, BIN, hypertension and coronary artery disease who was recently admitted 04/24-04/27 with chest pain and treated for pneumonia and volume overload. Of note, at that time she was found to have aspiration and she tells me she was found to have an esophageal stricture requiring dilatation with EGD. She still has some residual cough, but is not requiring oxygen and overall is feeling better from her pneumonia. She has been rehabilitating at [facility] and was in her usual state of health until 2 days ago when she had nonbilious, nonbloody emesis 1. She felt fine afterwards but awoke this morning with acute, severe right flank pain. She received a dose of oral Dilaudid at [facility] with no improvement of her symptoms. She is transferred to the ER and was found to have edema of the Camper's fascia on CT scan. She denies any history of trauma to the area. She denies fevers or chills. Her pain does not change with position. She makes minimal urine. May 15: Her right flank pain was controlled while still but severely exacerbated while walking with physical therapy. She states po pain meds do not even touch the pain and IV Dilaudid only takes the edge off for about an hour. Again denies any trauma. I discussed case with Dr. Ricketts (surgery) who will see pt this afternoon. ROS: no fever or nausea May 16: Today, the patient says she is feeling better. She continues to have a cough, but says this has never really gone away since September of this year. She does note that she is having some pain in her right lower rib cage with coughing as well as with deep breathing. Otherwise, she denies fevers or chills, other chest pain or shortness of breath , nausea or vomiting, diarrhea or dysuria. Because her pain is worse with coughing and breathing, d-dimer was ordered, and was positive. CT angiogram of the chest was done, which does not show PE. She was also seen by Dr. Souza of nephrology today. He is to feel she is still significantly above her ideal dry weight, so was dialyzed again today. May 17: Today, the patient continues to have mild dyspnea with exertion, and is still worried about this significant edema in her lower extremities which is causing discomfort. She is rather depressed about the fact that her CAT scan showed fluid in all of her tissues. Dr. Souza reviewed her weight today, and she did not lose much since dialysis yesterday. So far she has been unable to tolerate higher volume losses with dialysis, due to hypotension which is symptomatic. Regarding her significant pericardial effusion, which may be affecting blood pressure, pleural effusions, ascites, and significant peripheral edema, Dr. Souza is now recommending daily dialysis for smaller volumes, to try to achieve some tolerable overall volume loss to get her closer to her ideal dry weight. The patient otherwise denies fever or chills, chest pain or palpitations, abdominal pain, nausea or vomiting or diarrhea. She has minimal urine output. May 18: Today, the patient says she is feeling a bit better. She feels that she is less short of breath with exertion. She still notices some wheezing, and says nebulized bronchodilators do seem to help. She is still concerned about the excess edema in her lower extremities. She had an echocardiogram this morning, which on preliminary reading does not show a large increase in her pericardial effusion. She was able to have 3 L of fluid removed yesterday, with only moderate hypotension. Otherwise, she denies fever or chills, chest pain. Her cough seems to be improving. She denies abdominal pain, nausea or vomiting, diarrhea. She continues mostly anuric. - Constitutional Vitals: Vital Signs Temp Pulse Resp BP Pulse Ox 98.8 F 72 18 102/64 95 05/18/17 07:50 05/18/17 07:51 05/18/17 07:50 05/18/17 07:50 05/18/17 07:51 Period Temp Pulse Resp BP Sys/Millan Pulse Ox Last 24 Hr 96.7 F-98.8 F 70-81 16-20 80-109/55-76 93-97 Intake and Output 05/17/17 05/18/17 05/18/17 21:59 05:59 13:59 Intake Total 200 / 200 340 / 340 Output Total 3000 / 3000 Balance -3000 / -3000 200 / 200 340 / 340 Weight 225 lb Intake & Output: Intake & Output 05/17/17 05/18/17 05/18/17 21:59 05:59 13:59 Intake Total 200 / 200 340 / 340 Output Total 3000 / 3000 Balance -3000 / -3000 200 / 200 340 / 340 Weight 225 lb Intake: Oral 200 / 200 340 / 340 Output: Hemodialysis UF 3000 / 3000 Other: Meal Breakfast Feeding Ability Assist with Tray Set Up On exam, she is in no acute distress. Neck is supple without obvious lymphadenopathy or JVD. Cardiac exam shows regular rate and rhythm. Lungs have soft scattered wheezes bilaterally. Abdomen is soft, with minimal right upper quadrant pain to palpation. Bowel sounds are active. Extremities show about 2+ ankle edema. Neurologic exam is grossly nonfocal. Medical - PN: Obj Da - Labs CBC & Chem 7: 05/18/17 03:55 05/18/17 03:55 Labs: Abnormal Lab Results 05/18/17 05/18/17 05/17/17 03:55 03:55 04:55 RBC 3.48 L Hgb Hct MCV 107.7 H MCH 35.0 H RDW 20.3 H MPV Seg Neutrophils % Lymphocytes % Monocytes % (Manual) 15 H Nucleated RBCs 2 H RBC Morphology Abnorm A Anisocytosis 2+ A Macrocytosis 2+ A D-Dimer Chloride Anion Gap 18.0 H 17.0 H Creatinine 2.4 H 2.8 H Glucose 128 H Total Creatine Kinase Albumin/Globulin Ratio 05/17/17 05/16/17 05/16/17 04:55 09:03 04:22 RBC 3.47 L Hgb Hct MCV 106.8 H MCH 34.9 H RDW 19.6 H MPV 10.5 H Seg Neutrophils % Lymphocytes % Monocytes % (Manual) Nucleated RBCs RBC Morphology Abnorm A Anisocytosis 1+ A Macrocytosis 2+ A D-Dimer 6.37 H Chloride 93 L Anion Gap Creatinine 4.2 H Glucose 152 H Total Creatine Kinase Albumin/Globulin Ratio 0.9 L 05/16/17 05/15/17 04:22 04:40 RBC 3.38 L Hgb 11.9 L Hct 35.8 L MCV 105.7 H MCH 35.0 H RDW 19.8 H MPV Seg Neutrophils % 81 H Lymphocytes % 10 L Monocytes % (Manual) Nucleated RBCs RBC Morphology Abnorm A Anisocytosis 1+ A Macrocytosis 2+ A D-Dimer Chloride Anion Gap Creatinine Glucose Total Creatine Kinase 10 L Albumin/Globulin Ratio May 18: Echocardiogram: Formal report is pending. May 17: Nasal MRSA screen is negative. May 16: D-dimer is elevated at 6.3 CT angiogram of the chest: IMPRESSION: No evidence of pulmonary embolus. Mild enlargement of the central pulmonary arteries suggesting pulmonary hypertension - this is a chronic finding. Moderate pericardial effusion with increased fluid density suggesting hemopericardium or, less likely, inflammation. This is progressed from the CT three months ago. Moderate atelectasis within the right middle lobe, lingula and both lower lobes as described. Moderate bilateral pleural effusions - all new. Mediastinal adenopathy new. Small amount of ascites - new. Etiology unknown May 14: Nasal MRSA screen is negative. Blood cultures are negative so far. Chest x-ray:IMPRESSION: Small densely consolidated regions of atelectasis or infiltrate in both lower lobes with small effusions. CT of the abdomen: IMPRESSION: Large amount of edema within Camper's fascia over the right flank - new from the comparison CT two months ago. This may be posttraumatic or inflammatory. Small hemopericardium - slightly improved from exam two months prior. Suspect is related to chronic renal disease. Moderate left and small right pleural effusions with moderate bibasilar airspace disease most likely atelectasis rather than infiltrate - new from prior study. Marked bilateral renal atrophy bilaterally end-stage renal failure. Multiple nonobstructing stones in the calyces of both kidneys. 3 cm benign adenoma left adrenal gland which demonstrates long-term stability. Small amount of free fluid in the deep true pelvis - increased from previous study. Small bowel resection changes in the left upper quadrant with primary anastomosis. 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 No change Meds: Medications Albuterol Sulfate (Ventolin) 2.5 mg NEB Q2HP PRN PRN Reason: Shortness Of Breath Albuterol/Ipratropium (Duoneb) 3 ml NEB BID [facility] Aspirin (Aspirin) 81 mg PO DAILY [facility] Last Admin: 05/18/17 10:20 Dose: 81 mg Bisacodyl (Dulcolax) 10 mg [place] Q2-3DAYS PRN PRN Reason: Constipation Clopidogrel Bisulfate (Plavix) 75 mg PO DAILY [facility] Last Admin: 05/18/17 10:20 Dose: 75 mg Cyanocobalamin (Vitamin B-12) 1,000 mcg PO DAILY [facility] Last Admin: 05/18/17 10:20 Dose: 1,000 mcg Heparin Sodium (Porcine) (Heparin) 5,000 unit SQ Q12 [facility] Last Admin: 05/18/17 10:19 Dose: 5,000 unit Hydromorphone HCl (Dilaudid) 1 mg IV Q2HP PRN PRN Reason: PAIN LEVEL > 6 Last Admin: 05/17/17 19:39 Dose: 1 mg Hydromorphone HCl (Dilaudid) 4 mg PO Q4HP PRN PRN Reason: PAIN LEVEL 3-6 Last Admin: 05/18/17 08:08 Dose: 4 mg Lidocaine (Lidoderm) 1 patch [facility] Last Admin: 05/17/17 22:05 Dose: 1 patch Lidocaine (Lidoderm) 0 patch TOPICAL DAILY [facility] Last Admin: 05/18/17 10:20 Dose: Not Given Midodrine (Midodrine Hcl) 10 mg PO TID@0800,1200,1700 [facility] Last Admin: 05/18/17 07:30 Dose: 10 mg Ondansetron HCl (Zofran) 4 mg IV Q6HP PRN PRN Reason: Nausea And Vomiting Prednisone (Prednisone) 40 mg PO QAC [facility] Last Admin: 05/18/17 07:30 Dose: 40 mg Senna (Senokot) 2 tab PO [facility] Last Admin: 05/17/17 22:06 Dose: 2 tab Sevelamer Carbonate (Renvela) 800 mg PO TIDCC [facility] Last Admin: 05/18/17 07:30 Dose: 800 mg Simvastatin (Zocor) 20 mg PO [facility] Last Admin: 05/17/17 22:06 Dose: 20 mg Sodium Chloride (Saline Flush) 10 ml IV Q8 [facility] Last Admin: 05/18/17 05:13 Dose: 10 ml Trazodone HCl (Desyrel) 250 mg PO [facility] Last Admin: 05/17/17 22:06 Dose: 250 mg Medical - PN: A/P - Time Spent With Patient Total time spent is greater than 50% in coordination of care (as documented) at patient's floor/unit and/or counseling patient: 25 - 35 minutes - Narrative A/P Narrative: #1.. End stage renal disease on dialysis--HD T, Th, Sat. -Patient is approximately 10 kg above her dry weight. Dr. Souza felt that we are not making any progress with getting her closer to her dry weight. He strongly suggest daily dialysis with smaller volume diuresis , in the hopes that she could tolerate this without significant hypotension. There is also some concern that the size of her pericardial effusion could be impacting her blood pressures. -The patient did tolerate a higher volume dialysis last night. Dr. Valentin saw her again today, and will likely repeat dialysis again today, with the goal of getting closer to her ideal dry weight. #2. CAD--cont ASA/Plavix, simvastatin 20 QHS #3. Fibromyalgia--occasionally uses po Dilaudid. Multiple opiate intolerances. Cont home fluoxetine #4. B12 deficiency--h/o gastric bypass. Cont daily replacement #5. DVT prophylaxis--heparin #6. CODE STATUS--DNR. Short-term intubation OK. HCPOA is her friend, Holli Rodriguez. #7. Right flank pain -with edema of Camper's fascia on CT scan-->"fasciitis". CRP and PCT reassuring. No fevers or WBC. She has recently been on broad spectrum antibiotics and is at risk of C diff. Will trend CRP and PCT. -Clinically, the patient is improving. Dr. Ricketts did not feel that there are signs of active infection. She appears to have a significant total body volume overload issue, according to nephrology. It is unclear if this is playing a role in her discomfort. 8. Pulmonary. Patient has reported history of COPD, sleep apnea, pulmonary fibrosis. Resume budesonide nebs. Scheduled duo nebs. Add as needed albuterol nebs. - Approximately 30 minutes was spent today, reviewing her case, reviewing her test results, interviewing and examining her, you plan of care with the patient and staff, and writing orders. Medical - PN: Qual - VTE Deep Vein Thrombosis/Pulmonary Embolism Present on Admission: No
[2017-05-18] MEDS ORDERED: ACETAMINOPHEN 325 MG TABLET PO PRN (11:04)
[2017-05-18] MEDS: CALCIUM ACETATE 667 MG CAPSULE PO SCH ×2 (12:47→18:17)
--- NOTE | 2017-05-18 16:10 | Nephrology Progress Note ---
Subjective Patient information: Note initiated : 05/18/17 at 4:07 pm Service Date, if different from initiated Date: [] Patient: Naz Joseph 71 y/o F admitted on 05/17/17 for Edema within Camper' s Fascia. Chief Complaint: [] Principal diagnosis: right flank pain; fluid overload; pericardial effusion Interval history: no overnight events HD done yesterday and 2.8L UF achieved still has significant edema, SOB on minimal exertion no dizziness with low BP No CP no other concerns Pertinent ROS: as above Objective - Vital Signs Vital signs: Vital Signs Temp Pulse Resp BP Pulse Ox 05/18/17 15:39 72 116/78 05/18/17 15:09 73 118/78 05/18/17 14:37 93 H 107/72 05/18/17 14:11 96.7 F L 74 104/61 05/18/17 12:34 97.6 F 78 18 96/66 93 05/18/17 10:34 108/75 05/18/17 07:51 72 95 05/18/17 07:50 98.8 F 72 18 102/64 95 05/18/17 07:49 70 93 05/18/17 04:01 98.2 F 16 80/59 93 05/18/17 00:20 75 90/56 94 05/18/17 00:14 97.9 F 72 16 90/56 94 05/17/17 21:44 98.3 F 74 103/66 05/17/17 21:38 78 99/55 05/17/17 21:23 79 109/74 05/17/17 21:08 81 109/68 05/17/17 21:00 78 96/56 05/17/17 20:37 78 102/70 05/17/17 20:25 74 94/63 05/17/17 20:02 75 101/68 05/17/17 19:34 75 106/61 05/17/17 18:53 79 105/67 05/17/17 18:25 79 104/69 05/17/17 17:59 97.5 F 75 104/68 Intake and Output 05/18/17 05/18/17 05/18/17 05:59 13:59 21:59 Intake Total 200 / 200 340 / 340 Balance 200 / 200 340 / 340 Intake: Oral 200 / 200 340 / 340 Other: Meal Breakfast Feeding Ability Assist with Tray Set Up Intake & Output: Intake & Output 05/18/17 05/18/17 05/18/17 05:59 13:59 21:59 Intake Total 200 / 200 340 / 340 Balance 200 / 200 340 / 340 Intake: Oral 200 / 200 340 / 340 Other: Meal Breakfast Feeding Ability Assist with Tray Set Up - General Appearance General appearance: appears started age EENT: mucous membranes moist Neck: JVD Respiratory: clear Cardiology: no rub, normal S1, normal S2 Gastrointestinal: no tenderness, no guarding Integumentary: warm and dry, chronic venous stasis Neurologic: alert and oriented x3 Musculoskeletal: no erythema, no cyanosis - Lab 05/18/17 03:55 05/18/17 03:55 Most recent lab results Calcium 9.3 mg/dl (8.6-10.4) 05/18/17 03:55 Assessment and Plan (1) Fluid overload Status: Acute (2) ESRD (end stage renal disease) on dialysis Patient will get UF treatment over 4 hrs using 250ml/min of QB and UF goal of 2- 3L as tolerated HD tomorrow will follow echo result to ensure no cardiac etiology for low BP will follow along Thank you for giving me an opportunity to participate in Ms Joseph's medical care, appreciate it Status: Chronic
[2017-05-18] MEDS: BUDESONIDE 0.5 MG/2 ML AMPUL.NEB NEB SCH (20:22)
[2017-05-18] MEDS: IPRATROPIUM/ALBUTEROL 3 ML AMPUL.NEB NEB SCH (20:22)
[2017-05-18] MEDS: SENNOSIDES 1 TABLET PO SCH (20:33)
[2017-05-18] MEDS: traZODone HCL 50 MG TABLET PO SCH (20:37)
[2017-05-18] MEDS: SIMVASTATIN 20 MG TABLET PO SCH (20:37)
[2017-05-18] MEDS: PANTOPRAZOLE 40 MG TABLET PO SCH (20:38)
[2017-05-19] MEDS: HYDROmorphone 2 MG TABLET PO PRN (00:07)
[2017-05-19] MEDS: HYDROmorphone 2 MG/ML SYRINGE IV PRN ×2 (00:09→21:30)
[2017-05-19 05:02] LABS: Mean Cell Volume 107.8 fL (80.0-100.0); Mean Corpuscular HGB Conc 32.1 g/dL (31.0-36.0); Mean Corpuscular Hemoglobin 34.6 pg (26.0-34.0); Platelet Count 215 K/mcL (140-440); RBC 3.61 M/mcL (4.00-5.20); Red Cell Distribution Width 19.8 % (11.5-14.5)
[2017-05-19 05:23] LABS: ALT/SGPT 8 U/l (0-40); Albumin 3.8 gm/dL (3.2-5.2); Albumin/Globulin Ratio 1.1 (1.0-2.3); Alkaline Phosphatase 85 U/L (39-117); Blood Urea Nitrogen 31 mg/dl (8-23)
[2017-05-19] MEDS: 0.9 % SODIUM CHLORIDE 10 ML SYRINGE IV SCH ×4 (05:43→21:14)
[2017-05-19 06:51] LABS: Anisocytosis 1+ (NONE SEEN); Lymphocytes % 23 % (15-49); Macrocytosis 2+ (NONE SEEN); Monocytes % (Manual) 9 % (1-12); Platelet Estimate NORMAL (NORMAL); RBC Morphology ABNORM (NORMAL); Segmented Neutrophils % 68 % (38-78)
[2017-05-19] MEDS: MIDODRINE 5 MG TABLET PO SCH ×3 (07:46→16:36)
[2017-05-19] MEDS: SEVELAMER 800 MG TABLET PO SCH ×3 (07:46→19:16)
[2017-05-19] MEDS: CALCIUM ACETATE 667 MG CAPSULE PO SCH ×3 (07:46→19:16)
[2017-05-19] MEDS: predniSONE 20 MG TABLET PO SCH (07:46)
[2017-05-19] MEDS: IPRATROPIUM/ALBUTEROL 3 ML AMPUL.NEB NEB SCH ×2 (08:59→20:54)
[2017-05-19] MEDS: BUDESONIDE 0.5 MG/2 ML AMPUL.NEB NEB SCH ×2 (08:59→20:55)
[2017-05-19] MEDS: FLUoxetine HCL 20 MG CAPSULE PO SCH (09:20)
[2017-05-19] MEDS: ASPIRIN 81 MG TAB.CHEW PO SCH (09:20)
[2017-05-19] MEDS: CLOPIDOGREL 75 MG TABLET PO SCH (09:20)
[2017-05-19] MEDS: CYANOCOBALAMIN (VITAMIN B-12) 500 MCG TABLET PO SCH ×2 (09:21→11:05)
[2017-05-19] MEDS: VITAMIN D3 1,000 UNIT TABLET PO SCH (09:21)
[2017-05-19] MEDS: HEPARIN 5,000 UNIT/ML VIAL SQ SCH ×2 (09:22→21:00)
[2017-05-19] MEDS: LIDOCAINE PATCH TOPICAL SCH ×2 (11:04→21:13)
[2017-05-19] MEDS ORDERED: MANNITOL 12.5 GM/50 ML VIAL IV ONE (11:30)
--- NOTE | 2017-05-19 11:56 | Internal Med Progress Note ---
Medical - PN: Subj Patient information: Note initiated : 05/19/17 at 11:56 am Service Date, if different from initiated Date: [] Patient: Naz Joseph a 71 y/o F admitted on 05/17/17 for Edema within Camper' s Fascia. Chief Complaint: [] Interval history: May 14, 2017: History of present illness: Ms. Joseph is a 71 year old F with a complicated past medical history including end-stage renal disease on dialysis, pulmonary fibrosis, COPD, BIN, hypertension and coronary artery disease who was recently admitted 04/24-04/27 with chest pain and treated for pneumonia and volume overload. Of note, at that time she was found to have aspiration and she tells me she was found to have an esophageal stricture requiring dilatation with EGD. She still has some residual cough, but is not requiring oxygen and overall is feeling better from her pneumonia. She has been rehabilitating at [facility] and was in her usual state of health until 2 days ago when she had nonbilious, nonbloody emesis 1. She felt fine afterwards but awoke this morning with acute, severe right flank pain. She received a dose of oral Dilaudid at [facility] with no improvement of her symptoms. She is transferred to the ER and was found to have edema of the Camper's fascia on CT scan. She denies any history of trauma to the area. She denies fevers or chills. Her pain does not change with position. She makes minimal urine. May 15: Her right flank pain was controlled while still but severely exacerbated while walking with physical therapy. She states po pain meds do not even touch the pain and IV Dilaudid only takes the edge off for about an hour. Again denies any trauma. I discussed case with Dr. Ricketts (surgery) who will see pt this afternoon. ROS: no fever or nausea May 16: Today, the patient says she is feeling better. She continues to have a cough, but says this has never really gone away since September of this year. She does note that she is having some pain in her right lower rib cage with coughing as well as with deep breathing. Otherwise, she denies fevers or chills, other chest pain or shortness of breath , nausea or vomiting, diarrhea or dysuria. Because her pain is worse with coughing and breathing, d-dimer was ordered, and was positive. CT angiogram of the chest was done, which does not show PE. She was also seen by Dr. Souza of nephrology today. He is to feel she is still significantly above her ideal dry weight, so was dialyzed again today. May 17: Today, the patient continues to have mild dyspnea with exertion, and is still worried about this significant edema in her lower extremities which is causing discomfort. She is rather depressed about the fact that her CAT scan showed fluid in all of her tissues. Dr. Souza reviewed her weight today, and she did not lose much since dialysis yesterday. So far she has been unable to tolerate higher volume losses with dialysis, due to hypotension which is symptomatic. Regarding her significant pericardial effusion, which may be affecting blood pressure, pleural effusions, ascites, and significant peripheral edema, Dr. Souza is now recommending daily dialysis for smaller volumes, to try to achieve some tolerable overall volume loss to get her closer to her ideal dry weight. The patient otherwise denies fever or chills, chest pain or palpitations, abdominal pain, nausea or vomiting or diarrhea. She has minimal urine output. May 18: Today, the patient says she is feeling a bit better. She feels that she is less short of breath with exertion. She still notices some wheezing, and says nebulized bronchodilators do seem to help. She is still concerned about the excess edema in her lower extremities. She had an echocardiogram this morning, which on preliminary reading does not show a large increase in her pericardial effusion. She was able to have 3 L of fluid removed yesterday, with only moderate hypotension. Otherwise, she denies fever or chills, chest pain. Her cough seems to be improving. She denies abdominal pain, nausea or vomiting, diarrhea. She continues mostly anuric. May 19: Today, the patient says she is feeling better. She still has mild dyspnea with exertion, but says otherwise she is not having fever chills, chest pain or palpitations, abdominal pain, nausea or vomiting or diarrhea. She denies lightheadedness, and is pleased that she is tolerating more fluid being removed with dialysis. - Constitutional Vitals: Vital Signs Temp Pulse Resp BP Pulse Ox 98.4 F 68 18 97/67 92 05/19/17 06:40 05/19/17 09:08 05/19/17 09:08 05/19/17 06:40 05/19/17 09:08 Period Temp Pulse Resp BP Sys/Millan Pulse Ox Last 24 Hr 96.7 F-98.4 F 68-93 16-18 92-123/61-78 92-94 Intake and Output 05/18/17 05/19/17 05/19/17 21:59 05:59 13:59 Intake Total 700 / 700 50 / 50 Output Total 3000 / 3000 Balance -2300 / -2300 50 / 50 Weight 226 lb Intake & Output: Intake & Output 05/18/17 05/19/17 05/19/17 21:59 05:59 13:59 Intake Total 700 / 700 50 / 50 Output Total 3000 / 3000 Balance -2300 / -2300 50 / 50 Weight 226 lb Intake: Oral 700 / 700 50 / 50 Output: Hemodialysis UF 3000 / 3000 Other: Meal Dinner Percent of Meal Consumed 100% On exam, she is in no acute distress. Neck is supple without obvious lymphadenopathy or JVD. Cardiac exam shows regular rate and rhythm. Lungs mostly clear today, with only occasional crackles. Abdomen is soft, and nontender. Extremities show about 2+ ankle edema. Neurologic exam is grossly nonfocal. Medical - PN: Obj Da - Labs CBC & Chem 7: 05/19/17 03:55 05/19/17 03:55 Labs: Abnormal Lab Results 05/19/17 05/19/17 05/18/17 03:55 03:55 03:55 RBC 3.61 L MCV 107.8 H MCH 34.6 H RDW 19.8 H MPV Monocytes % (Manual) Nucleated RBCs 1 H RBC Morphology Abnorm A Anisocytosis 1+ A Macrocytosis 2+ A Anion Gap 18.0 H BUN 31 H Creatinine 3.6 H 2.4 H Glucose 05/18/17 05/17/17 05/17/17 03:55 04:55 04:55 RBC 3.48 L 3.47 L MCV 107.7 H 106.8 H MCH 35.0 H 34.9 H RDW 20.3 H 19.6 H MPV 10.5 H Monocytes % (Manual) 15 H Nucleated RBCs 2 H RBC Morphology Abnorm A Abnorm A Anisocytosis 2+ A 1+ A Macrocytosis 2+ A 2+ A Anion Gap 17.0 H BUN Creatinine 2.8 H Glucose 128 H Arnoldo 1: Echocardiogram: Formal report is pending. May 17: Nasal MRSA screen is negative. May 16: D-dimer is elevated at 6.3 CT angiogram of the chest: IMPRESSION: No evidence of pulmonary embolus. Mild enlargement of the central pulmonary arteries suggesting pulmonary hypertension - this is a chronic finding. Moderate pericardial effusion with increased fluid density suggesting hemopericardium or, less likely, inflammation. This is progressed from the CT three months ago. Moderate atelectasis within the right middle lobe, lingula and both lower lobes as described. Moderate bilateral pleural effusions - all new. Mediastinal adenopathy new. Small amount of ascites - new. Etiology unknown May 14: Nasal MRSA screen is negative. Blood cultures are negative so far. Chest x-ray:IMPRESSION: Small densely consolidated regions of atelectasis or infiltrate in both lower lobes with small effusions. CT of the abdomen: IMPRESSION: Large amount of edema within Camper's fascia over the right flank - new from the comparison CT two months ago. This may be posttraumatic or inflammatory. Small hemopericardium - slightly improved from exam two months prior. Suspect is related to chronic renal disease. Moderate left and small right pleural effusions with moderate bibasilar airspace disease most likely atelectasis rather than infiltrate - new from prior study. Marked bilateral renal atrophy bilaterally end-stage renal failure. Multiple nonobstructing stones in the calyces of both kidneys. 3 cm benign adenoma left adrenal gland which demonstrates long-term stability. Small amount of free fluid in the deep true pelvis - increased from previous study. Small bowel resection changes in the left upper quadrant with primary anastomosis. 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 No change Meds: Medications Acetaminophen (Tylenol) 650 mg PO Q4HP PRN PRN Reason: Pain Albuterol Sulfate (Ventolin) 2.5 mg NEB Q2HP PRN PRN Reason: Shortness Of Breath Albuterol/Ipratropium (Duoneb) 3 ml NEB BID [facility] Last Admin: 05/19/17 08:59 Dose: 3 ml Aspirin (Aspirin) 81 mg PO DAILY [facility] Last Admin: 05/19/17 09:20 Dose: 81 mg Bisacodyl (Dulcolax) 10 mg WI Q2-3DAYS PRN PRN Reason: Constipation Budesonide (Pulmicort) 0.5 mg NEB Q12 [facility] Last Admin: 05/19/17 08:59 Dose: 0.5 mg Calcium Acetate (Phoslo) 667 mg PO TIDCC [facility] Last Admin: 05/19/17 07:46 Dose: 667 mg Clopidogrel Bisulfate (Plavix) 75 mg PO DAILY [facility] Last Admin: 05/19/17 09:20 Dose: 75 mg Cyanocobalamin (Vitamin B-12) 1,000 mcg PO DAILY [facility] Last Admin: 05/19/17 09:21 Dose: 1,000 mcg Cyanocobalamin (Vitamin B-12) 1,000 mcg PO DAILY [facility] Last Admin: 05/19/17 11:05 Dose: Not Given Fluoxetine HCl (Prozac) 40 mg PO DAILY [facility] Last Admin: 05/19/17 09:20 Dose: 40 mg Guaifenesin (Robitussin Dm) 10 ml PO Q4HP PRN PRN Reason: Cough Heparin Sodium (Porcine) (Heparin) 5,000 unit SQ Q12 [facility] Last Admin: 05/19/17 09:22 Dose: 5,000 unit Hydromorphone HCl (Dilaudid) 1 mg IV Q2HP PRN PRN Reason: PAIN LEVEL > 6 Last Admin: 05/19/17 00:09 Dose: 1 mg Hydromorphone HCl (Dilaudid) 4 mg PO Q4HP PRN PRN Reason: PAIN LEVEL 3-6 Last Admin: 05/19/17 00:07 Dose: 4 mg Lidocaine (Lidoderm) 1 patch TOPICAL [facility] Last Admin: 05/18/17 20:33 Dose: 1 patch Lidocaine (Lidoderm) 0 patch TOPICAL DAILY [facility] Last Admin: 05/19/17 11:04 Dose: 1 patch Midodrine (Midodrine Hcl) 10 mg PO TID@0800,1200,1700 [facility] Last Admin: 05/19/17 07:46 Dose: 10 mg Ondansetron HCl (Zofran) 4 mg IV Q6HP PRN PRN Reason: Nausea And Vomiting Pantoprazole Sodium (Protonix) 40 mg PO QHS [facility] Last Admin: 05/18/17 20:38 Dose: 40 mg Prednisone (Prednisone) 40 mg PO QAMCC [facility] Last Admin: 05/19/17 07:46 Dose: 40 mg Senna (Senokot) 2 tab PO [facility] Last Admin: 05/18/17 20:33 Dose: 2 tab Sevelamer Carbonate (Renvela) 800 mg PO TIDCC [facility] Last Admin: 05/19/17 07:46 Dose: 800 mg Simvastatin (Zocor) 20 mg PO HS [facility] Last Admin: 05/18/17 20:37 Dose: 20 mg Sodium Chloride (Saline Flush) 10 ml IV Q8 [facility] Last Admin: 05/19/17 05:43 Dose: 10 ml Trazodone HCl (Desyrel) 250 mg PO HS [facility] Last Admin: 05/18/17 20:37 Dose: 250 mg Vitamin D (Vitamin D3) 1,000 unit PO DAILY [facility] Last Admin: 05/19/17 09:21 Dose: 1,000 unit Medical - PN: A/P - Time Spent With Patient Total time spent is greater than 50% in coordination of care (as documented) at patient's floor/unit and/or counseling patient: - Narrative A/P Narrative: #1.. End stage renal disease on dialysis--HD T, Th, Sat. -Patient is approximately 10 kg above her dry weight. Dr. Souza felt that we are not making any progress with getting her closer to her dry weight. He strongly suggest daily dialysis with smaller volume diuresis , in the hopes that she could tolerate this without significant hypotension. There is also some concern that the size of her pericardial effusion could be impacting her blood pressures. -The patient did tolerate a higher volume dialysis last night. Dr. Valentin saw her again today, and will likely repeat dialysis again today, with the goal of getting closer to her ideal dry weight. -If she does well today and tomorrow, anticipate discharge, possibly to swing bed status. #2. CAD--cont ASA/Plavix, simvastatin 20 QHS #3. Fibromyalgia--occasionally uses po Dilaudid. Multiple opiate intolerances. Cont home fluoxetine #4. B12 deficiency--h/o gastric bypass. Cont daily replacement #5. DVT prophylaxis--heparin #6. CODE STATUS--DNR. Short-term intubation OK. CARLYLE is her friend, Holli Rodriguez. #7. Right flank pain -with edema of Camper's fascia on CT scan-->"fasciitis". CRP and PCT reassuring. No fevers or WBC. She has recently been on broad spectrum antibiotics and is at risk of C diff. Will trend CRP and PCT. -Clinically, the patient is improving. Dr. Ricketts did not feel that there are signs of active infection. 8. Pulmonary. Patient has reported history of COPD, sleep apnea, pulmonary fibrosis. Resumed budesonide nebs. Scheduled duo nebs. Added as needed albuterol nebs. - Approximately 25 minutes was spent today, reviewing her case, reviewing her test results, interviewing and examining her, reviewing plan of care with the patient and staff. Medical - PN: Qual - VTE Deep Vein Thrombosis/Pulmonary Embolism Present on Admission: No
--- NOTE | 2017-05-19 14:35 | Nephrology Progress Note ---
Subjective Patient information: Note initiated : 05/19/17 at 2:33 pm Service Date, if different from initiated Date: [] Patient: Naz Joseph 71 y/o F admitted on 05/17/17 for Edema within Camper' s Fascia. Chief Complaint: [] Principal diagnosis: right flank pain; fluid overload; pericardial effusion Interval history: Patient is feeling a little better today her SOB is also improved some as is LE edema she has no CP and no dizziness with borderline low BP readings no GI symptoms denies any other issues Echo reading is still pending Pertinent ROS: as above Objective - Vital Signs Vital signs: Vital Signs Temp Pulse Pulse Resp BP BP Pulse Ox 05/19/17 14:08 74 100/65 05/19/17 13:38 70 117/80 05/19/17 13:09 69 108/72 05/19/17 12:43 97.7 F 65 111/77 05/19/17 12:13 105/68 05/19/17 12:00 97.4 F 70 18 105/68 92 05/19/17 09:08 68 18 92 05/19/17 06:40 98.4 F 97/67 05/19/17 04:06 97.2 F 16 92/64 92 05/18/17 23:38 97.9 F 72 18 111/76 93 05/18/17 20:53 71 106/74 93 05/18/17 20:22 74 18 05/18/17 20:00 98.1 F 73 18 106/74 94 05/18/17 18:00 97.1 F 74 119/78 05/18/17 17:38 80 119/77 05/18/17 17:08 81 123/62 05/18/17 16:38 81 113/70 05/18/17 16:11 74 111/71 05/18/17 16:00 97.6 F 77 18 113/70 94 05/18/17 15:39 72 116/78 05/18/17 15:09 73 118/78 05/18/17 14:37 93 H 107/72 Intake and Output 05/19/17 05/19/17 05/19/17 05:59 13:59 21:59 Intake Total 50 / 50 Balance 50 / 50 Intake: Oral 50 / 50 Intake & Output: Intake & Output 05/19/17 05/19/17 05/19/17 05:59 13:59 21:59 Intake Total 50 / 50 Balance 50 / 50 Intake: Oral 50 / 50 - General Appearance General appearance: appears started age EENT: mucous membranes moist Neck: JVD Respiratory: clear Cardiology: no rub, edema (2+), normal S1, normal S2 Gastrointestinal: no tenderness, no guarding Integumentary: warm and dry, chronic venous stasis Neurologic: no asterixis, alert and oriented x3 Musculoskeletal: no erythema, no clubbing Psychiatric: mood/affect appropriate - Lab 05/19/17 03:55 05/19/17 03:55 Most recent lab results Calcium 9.7 mg/dl (8.6-10.4) 05/19/17 03:55 Assessment and Plan (1) Fluid overload Status: Acute (2) ESRD (end stage renal disease) on dialysis Patient will get HD today for 4 hrs using revaclear dialyser, 2K/2.5ca dialysate at 800ml/min, QB at 350ml/min, UF goal of 2-3L as tolerated with help of midodrine and mannitol to help with hypotension she has maintained her BP above MAP of 65 and hence I have not needed to use IV pressors Her weight is down to 89.2Kg today, I am going to maintain her DW at 85kg to prevent profound hypotension as she did with 83kg She will ct with midodrine 10mg tid for now I will slowly taper her prednisone at this time over the next 4-5 weeks I will cut back on her dilaudid dosing as well to ensure it is not causing her BP to drop down very low I will repeat her CXR today to ensure her lungs are clear, if her CXR is fine and her BP is stable plan will be change her to swing status so that she can get PT to regain strength in a effort to eventually discharge her home I appreciate hospitalist help in managing this pt Status: Chronic
[2017-05-19] MEDS ORDERED: HYDROmorphone 2 MG TABLET PO PRN (14:42)
[2017-05-19] MEDS: PANTOPRAZOLE 40 MG TABLET PO SCH (20:59)
[2017-05-19] MEDS: SIMVASTATIN 20 MG TABLET PO SCH (20:59)
[2017-05-19] MEDS: traZODone HCL 50 MG TABLET PO SCH (20:59)
[2017-05-19] MEDS: SENNOSIDES 1 TABLET PO SCH (21:14)
[2017-05-20] MEDS: HYDROmorphone 2 MG/ML SYRINGE IV PRN ×2 (00:26→10:42)
[2017-05-20] MEDS: 0.9 % SODIUM CHLORIDE 10 ML SYRINGE IV SCH ×3 (05:47→22:00)
[2017-05-20] MEDS ORDERED: predniSONE 20 MG TABLET PO SCH (08:00)
--- NOTE | 2017-05-20 08:18 | XRay Report ---
CLINICAL INFORMATION: Follow pleural effusion COMPARISON: 05/14/2017 FINDINGS: Cardiomediastinal silhouette is normal. Pulmonary vessels are normal for portable technique taken in suboptimal respiratory result. Small region of consolidated atelectasis or infiltrate in the left medial base - retrocardiac region is unchanged. Small bilateral pleural effusions noted IMPRESSION: Small region of densely consolidated atelectasis or infiltrate in the posterior medial left lower lobe - stable Interpreted and Authenticated by: Fortino Mendoza 05/20/17
[2017-05-20] MEDS: CYANOCOBALAMIN (VITAMIN B-12) 500 MCG TABLET PO SCH ×2 (08:40→09:20)
[2017-05-20 09:04] LABS: Mean Cell Volume 108.5 fL (80.0-100.0); Mean Corpuscular HGB Conc 31.9 g/dL (31.0-36.0); Mean Corpuscular Hemoglobin 34.6 pg (26.0-34.0); Platelet Count 216 K/mcL (140-440); RBC 3.68 M/mcL (4.00-5.20); Red Cell Distribution Width 20.7 % (11.5-14.5)
[2017-05-20] MEDS: CLOPIDOGREL 75 MG TABLET PO SCH (09:16)
[2017-05-20] MEDS: IPRATROPIUM/ALBUTEROL 3 ML AMPUL.NEB NEB SCH ×2 (09:16→21:35)
[2017-05-20] MEDS: BUDESONIDE 0.5 MG/2 ML AMPUL.NEB NEB SCH ×2 (09:16→21:35)
[2017-05-20] MEDS: SEVELAMER 800 MG TABLET PO SCH ×3 (09:19→17:00)
[2017-05-20 09:20] LABS: ALT/SGPT 11 U/l (0-40); Albumin 3.6 gm/dL (3.2-5.2); Alkaline Phosphatase 97 U/L (39-117); Blood Urea Nitrogen 26 mg/dl (8-23)
[2017-05-20] MEDS: CALCIUM ACETATE 667 MG CAPSULE PO SCH ×3 (09:20→17:00)
[2017-05-20] MEDS: FLUoxetine HCL 20 MG CAPSULE PO SCH (09:20)
[2017-05-20] MEDS: MIDODRINE 5 MG TABLET PO SCH ×3 (09:20→17:00)
[2017-05-20] MEDS: VITAMIN D3 1,000 UNIT TABLET PO SCH (09:20)
[2017-05-20] MEDS: ASPIRIN 81 MG TAB.CHEW PO SCH (09:20)
[2017-05-20] MEDS: HEPARIN 5,000 UNIT/ML VIAL SQ SCH ×2 (09:21→21:56)
[2017-05-20] MEDS: LIDOCAINE PATCH TOPICAL SCH ×2 (09:21→22:00)
[2017-05-20 09:47] LABS: Anisocytosis 1+ (NONE SEEN); Band Neutrophils % 2 % (0-10); Eosinophils % (Manual) 1 % (0-7); Lymphocytes % 30 % (15-49); Macrocytosis 2+ (NONE SEEN); Monocytes % (Manual) 11 % (1-12); Platelet Estimate NORMAL (NORMAL); RBC Morphology ABNORM (NORMAL); Segmented Neutrophils % 57 % (38-78)
[2017-05-20] MEDS ORDERED: MANNITOL 12.5 GM/50 ML VIAL IV ONE (14:31)
--- NOTE | 2017-05-20 16:00 | Nephrology Progress Note ---
Subjective Patient information: Note initiated : 05/20/17 at 3:58 pm Service Date, if different from initiated Date: [] Patient: Naz Joseph 71 y/o F admitted on 05/17/17 for Edema within Camper' s Fascia. Chief Complaint: [] Principal diagnosis: right flank pain; fluid overload; pericardial effusion Interval history: still has LE edema, abdominal wall edema Weight is at 88kg, DW is at 82kg SOB with exertion no CP, denies dizziness able to PT with no issues still with significant weakness, unable to rise from chair walking a little with help of walker though no overnight events Pertinent ROS: as above Objective - Vital Signs Vital signs: Vital Signs Temp Pulse Resp BP Pulse Ox 05/20/17 15:54 97.3 F 89 16 98/67 99 05/20/17 11:31 97.7 F 71 16 97/64 92 05/20/17 09:18 78 18 05/20/17 08:17 98.7 F 73 20 92/65 92 05/20/17 04:20 97.8 F 16 93 05/20/17 00:24 97.1 F 79 16 107/64 92 05/19/17 20:55 77 18 92 05/19/17 20:38 98.0 F 76 18 97/65 97 05/19/17 16:29 97.7 F 77 104/65 05/19/17 16:24 73 93/60 Intake and Output 05/20/17 05/20/17 05/20/17 05:59 13:59 21:59 Intake Total 50 / 50 Balance 50 / 50 Intake: Oral 50 / 50 Other: Meal Breakfast Percent of Meal Consumed 100% Weight 194 lb 3.636 oz Patient Weight 05/21/17 05:59 Weight 194 lb 3.636 oz Intake & Output: Intake & Output 05/20/17 05/20/17 05/20/17 05:59 13:59 21:59 Intake Total 50 / 50 Balance 50 / 50 Weight 194 lb 3.636 oz Intake: Oral 50 / 50 Other: Meal Breakfast Percent of Meal Consumed 100% - General Appearance General appearance: appears started age, chronically ill EENT: mucous membranes dry Neck: JVD Respiratory: clear Cardiology: no rub, edema (3+), normal S1, normal S2 Gastrointestinal: no tenderness, no organomegaly Integumentary: warm and dry, chronic venous stasis Neurologic: no asterixis (has hand tremors), alert and oriented x3 Musculoskeletal: no cyanosis, no clubbing Psychiatric: mood/affect appropriate - Lab 05/20/17 07:50 05/20/17 07:50 Most recent lab results Calcium 9.3 mg/dl (8.6-10.4) 05/20/17 07:50 Assessment and Plan (1) Fluid overload Status: Acute (2) ESRD (end stage renal disease) on dialysis PUF today for 2.5 hrs with goal of 1.5-2l as tolerated with help of midodrine and mannitol to support if needed for hypotension I will ct to taper prednisone and maintain her on 5mg I will continue to cut back on dilaudid if she is stable we can change her status to swing bed tomorrow if no further issues I appreciate hospitalist help in managing this pt Status: Chronic
--- NOTE | 2017-05-20 16:46 | Discharge Summary ---
Medical - DS: Prov Patient information: Note initiated : 05/20/17 at 4:40 pm Service Date, if different from initiated Date: [] Patient: Naz Joseph 71 y/o F admitted on 05/17/17 for Edema within Camper' s Fascia. Chief Complaint: [] Date of admission: 05/17/17 15:59 Discharge date: 05/20/17 Primary care physician: Maribel Jaimes Nephrology, Dr. Valentin Admitting clinician: Dorene Waters Consults: 05/15/17 16:15 Consult to Physician [CONS] Routine Comment: Consulting Provider: Chung Ricketts Reason For Exam: Physician to Consult Dr. Valentin, nephrology Attending physician on discharge: Cherie Leavitt Medical - DS: Meds - Discharge Medications Active and Home Medications: Discharge medications: Tylenol 650 mg every 4 hours as needed Albuterol 2.5 mg nebulizer every 2 hours as needed Duo nebs twice daily Aspirin 81 mg daily Dulcolax 10 mg per rectum daily 2-3 days as needed Budesonide nebs 0.5 mg every 12 hours Calcium acetate 667 mg p.o. 3 times daily Plavix 75 mg daily B12 1000 mcg daily Fluoxetine 40 mg daily Robitussin-DM 10 mL every 4 hours as needed Dilaudid 2-3 mg every 4 hours p.o. as needed Dilaudid 1 mg IV every 2 hours as needed Lidoderm patch one topically daily, remove after 12 hours Midodrine 10 mg p.o. 3 times daily Zofran 4 mg IV every 6 hours as needed Protonix 40 mg p.o. nightly Prednisone 20 mg p.o. daily Senna 2 tabs p.o. nightly Renvela 800 mg p.o. 3 times daily Zocor 20 mg nightly Trazodone 250 mg nightly Vitamin D 1000 units daily Previous alf Medications: acetaminophen 500 mg tablet 1,000 mg PO Q6H PRN tab 12/03/14 [History Confirmed 05/14/17 Last Taken 04/19/17 08:00] cholecalciferol (vitamin D3) 1,000 unit capsule 1,000 unit PO QDAY cap [History Confirmed 05/14/17 Last Taken 05/14/17 08:00] cyanocobalamin (vit B-12) ER 1,000 mcg tablet,extended release 1,000 mcg PO QDAY tab 12/03/14 [History Confirmed 05/14/17 Last Taken 05/14/17 08:00] sevelamer carbonate 800 mg tablet 800 mg PO TIDAC 06/01/15 [History Confirmed Last Taken 05/14/17 12:00] calcium acetate 667 mg capsule 667 mg PO TIDCC 30 Days #60 cap 09/09/15 [ History Confirmed 05/14/17 Last Taken 05/14/17 12:00] fluoxetine 40 mg capsule 40 mg PO QDAY #90 cap 09/09/15 [Rx Confirmed 05/14/17 Last Taken 05/14/17 08:00] estradiol 0.5 mg tablet 0.5 mg PO QDAY #30 tab 11/01/15 [Rx Confirmed 05/14/17 Last Taken 05/14/17 08:00] simvastatin 20 mg tablet 20 mg PO HS 05/17/16 [History Confirmed 05/14/17 Last Taken 05/13/17 21:00] trazodone 100 mg tablet 250 mg PO QHS 90 Days #225 tab 09/11/16 [Rx Confirmed Last Taken 05/13/17 21:00] Aspirin [Lite Coat Aspirin] 325 mg PO DAILY 04/13/17 [History Confirmed Last Taken 05/14/17 08:00] Clopidogrel Bisulfate [Plavix] 75 mg PO DAILY 04/13/17 [History Confirmed Last Taken 05/14/17 08:00] Budesonide [Pulmicort] 0.5 mg NEB Q12 ampul.neb 04/20/17 [Rx Confirmed Last Taken 05/14/17 09:00] Ipratropium/Albuterol [Duoneb] 3 ml NEB Q6H #1 ampul.neb 04/20/17 [Rx Confirmed 05/14/17 Last Taken 05/14/17 08:00] Pantoprazole [Protonix] 40 mg PO QHS #1 tab 04/20/17 [Rx Confirmed 05/14/17 Last Taken 05/13/17 21:00] guaiFENesin/DEXTROMETHORPHAN [Robitussin Dm] 10 ml PO Q4HP PRN ml 04/20/17 [Rx Confirmed 05/14/17 Last Taken 05/11/17 08:00] suvorexant 10 mg tablet 10 mg PO HS PRN #30 tab 04/24/17 [Rx Confirmed 05/14/17 Last Taken Unknown] Cefepime HCl/Dextrose, Iso-Osm [Cefepime 2 gm Injection] 2 gm IV 3XW #3 [id number] 04/27/17 [Rx Confirmed 05/14/17 Last Taken Unknown] HYDROmorphone HCL [Dilaudid] 2 mg PO Q8HP PRN #40 tab 04/27/17 [Rx Confirmed Last Taken 05/14/17 12:00] Vancomycin Per Pharmacy 1 order IV ONCE #3 miscell 04/27/17 [Rx Confirmed Last Taken Unknown] metroNIDAZOLE [Metronidazole] 500 mg PO TID #18 tab 04/27/17 [Rx Confirmed 05/14 Last Taken Unknown] Medical - DS: Hosp Hospital course: Mr. Joseph is a 71 year old F May 14, 2017: History of present illness: Ms. Joseph is a 71 year old F with a complicated past medical history including end-stage renal disease on dialysis, pulmonary fibrosis, COPD, BIN, hypertension and coronary artery disease who was recently admitted 04/24-04/27 with chest pain and treated for pneumonia and volume overload. Of note, at that time she was found to have aspiration and she tells me she was found to have an esophageal stricture requiring dilatation with EGD. She still has some residual cough, but is not requiring oxygen and overall is feeling better from her pneumonia. She has been rehabilitating at [facility] and was in her usual state of health until 2 days ago when she had nonbilious, nonbloody emesis 1. She felt fine afterwards but awoke this morning with acute, severe right flank pain. She received a dose of oral Dilaudid at [facility] with no improvement of her symptoms. She is transferred to the ER and was found to have edema of the Camper's fascia on CT scan. She denies any history of trauma to the area. She denies fevers or chills. Her pain does not change with position. She makes minimal urine. May 15: Her right flank pain was controlled while still but severely exacerbated while walking with physical therapy. She states po pain meds do not even touch the pain and IV Dilaudid only takes the edge off for about an hour. Again denies any trauma. I discussed case with Dr. Ricketts (surgery) who will see pt this afternoon. ROS: no fever or nausea May 16: Today, the patient says she is feeling better. She continues to have a cough, but says this has never really gone away since September of this year. She does note that she is having some pain in her right lower rib cage with coughing as well as with deep breathing. Otherwise, she denies fevers or chills, other chest pain or shortness of breath , nausea or vomiting, diarrhea or dysuria. Because her pain is worse with coughing and breathing, d-dimer was ordered, and was positive. CT angiogram of the chest was done, which does not show PE. She was also seen by Dr. Souza of nephrology today. He is to feel she is still significantly above her ideal dry weight, so was dialyzed again today. ........ May 20, 2017: Hospital course: -This patient was admitted on May 14 with fairly sudden, severe, right flank pain. Workup showed possible inflammation of the Camper's fascia, but surgical evaluation did not reveal any infection. Over the course of her stay it was realized that the patient had fairly diffuse edema including pericardial effusion and ascites and pleural effusions. She is a chronic dialysis patient, but she had not been tolerating removing enough fluid during dialysis to get her to her target dry weight. Wedding Makeup Artist then recommended daily dialysis with smaller volume removals, to see if her blood pressures would tolerate this. She has been getting daily dialysis for the last few days, with blood pressure support from midodrine. She has been tolerating this better. She is having dialysis today, but then is expected to be stable for discharge back to rehab. We are hoping that she can go back to dialysis just 3 days a week. The patient has noted dyspnea with exertion for some time now, but says that seems to be getting better over the last few days. She did have follow-up echocardiogram that did not show any enlargement of her pericardial effusion from the last check. -She continues to have occasional right flank pain of uncertain etiology. This is being managed with pain medications. -She does have known COPD, and is managed with bronchodilators and prednisone, and this seems to be fairly stable. Today, she notes that her left shoulder has been aching for the last 1-2 months. She has been postponing physical therapy for this because of her other issues. She continues to have mild dyspnea with exertion, but was able to walk to the cafeteria and back today with physical therapy. She did have to stop twice for shortness of breath. Otherwise, she denies fever or chills, chest pain or palpitations, abdominal pain, nausea or vomiting, diarrhea or constipation. She has minimal urine output. On exam, she is in no acute distress. Neck is supple without obvious lymphadenopathy or JVD. Cardiac exam shows regular rate and rhythm. Lungs mostly clear today, with only rare crackles. Abdomen is soft, and nontender. Extremities show about 1-2+ ankle edema. Neurologic exam is grossly nonfocal. A/P Narrative: #1.. End stage renal disease on dialysis--HD T, Th, Sat. Dr. Souza felt that we are not making any progress with getting her closer to her dry weight. He strongly suggest daily dialysis with smaller volume diuresis , in the hopes that she could tolerate this without significant hypotension. There is also some concern that the size of her pericardial effusion could be impacting her blood pressures. -The patient did tolerate daily dialysis over the last few days. She has tolerated slightly more volume being removed.. (Per Dr. Valentin: ESRD (end stage renal disease) on dialysis PUF today for 2.5 hrs with goal of 1.5-2l as tolerated with help of midodrine and mannitol to support if needed for hypotension I will ct to taper prednisone and maintain her on 5mg I will continue to cut back on dilaudid ) #2. CAD--cont ASA/Plavix, simvastatin 20 QHS #3. Fibromyalgia--occasionally uses po Dilaudid. Multiple opiate intolerances. Cont home fluoxetine #4. B12 deficiency--h/o gastric bypass. Cont daily replacement #5. DVT prophylaxis--heparin #6. CODE STATUS--DNR. Short-term intubation OK. AMILCAROA is her friend, Holli Rodriguez. #7. Right flank pain -with edema of Camper's fascia on CT scan-->"fasciitis". CRP and PCT reassuring. No fevers or WBC. She has recently been on broad spectrum antibiotics and is at risk of C diff. Will trend CRP and PCT. -Clinically, the patient is improving. Dr. Ricketts did not feel that there are signs of active infection. 8. Pulmonary. Patient has reported history of COPD, sleep apnea, pulmonary fibrosis. Resumed budesonide nebs. Scheduled duo nebs. Added as needed albuterol nebs. #9. Infectious disease. White blood cell count bumped a little today, for uncertain reasons. Clinically the patient is quite stable. Continue to follow after discharge. - Discharge diagnosis: Flank pain of uncertain cause. Volume overload. ESRD. Hypotension. - Time Spent with Patient Total time spent providing and/or coordinating discharge services: Greater than 30 minutes Medical - DS: Exam - Constitutional Vitals: Vital Signs Temp Pulse Resp BP Pulse Ox 05/20/17 15:54 97.3 F 89 16 98/67 99 05/20/17 11:31 97.7 F 71 16 97/64 92 05/20/17 09:18 78 18 05/20/17 08:17 98.7 F 73 20 92/65 92 05/20/17 04:20 97.8 F 16 93 05/20/17 00:24 97.1 F 79 16 107/64 92 05/19/17 20:55 77 18 92 05/19/17 20:38 98.0 F 76 18 97/65 97 Intake and Output 05/20/17 05/20/17 05/20/17 05:59 13:59 21:59 Intake Total 50 / 50 460 / 460 40 / 40 Balance 50 / 50 460 / 460 40 / 40 Intake: Oral 50 / 50 460 / 460 40 / 40 Other: Meal Lunch Percent of Meal Consumed 100% Feeding Ability Independent Weight 194 lb 3.636 oz Patient Weight 05/21/17 05:59 Weight 194 lb 3.636 oz Medical - DS: Data Labs on day of discharge: Labs from last 24 hours 05/20/17 05/20/17 07:50 07:50 WBC 13.8 H RBC 3.68 L Hgb 12.7 Hct 39.9 MCV 108.5 H MCH 34.6 H MCHC 31.9 RDW 20.7 H Plt Count 216 MPV 9.9 Total Counted 200 Seg Neutrophils % 57 Band Neutrophils % 2 Lymphocytes % 30 Monocytes % (Manual) 11 Eosinophils % (Manual) 1 Nucleated RBCs 1 H Platelet Estimate Normal RBC Morphology Abnorm A Anisocytosis 1+ A Macrocytosis 2+ A Sodium 137 Potassium 4.3 Chloride 95 L Carbon Dioxide 23 Anion Gap 19.0 H BUN 26 H Creatinine 3.2 H GFR Calculation 14 Glucose 100 Calcium 9.3 Total Bilirubin 0.3 AST 16 ALT 11 Alkaline Phosphatase 97 Total Protein 7.1 Albumin 3.6 Globulin 3.5 Albumin/Globulin Ratio 1.0 May 20: Chest x-ray: IMPRESSION: Small region of densely consolidated atelectasis or infiltrate in the posterior medial left lower lobe - stable May 18: Echocardiogram: Formal report is pending. May 17: Nasal MRSA screen is negative. May 16: D-dimer is elevated at 6.3 CT angiogram of the chest: IMPRESSION: No evidence of pulmonary embolus. Mild enlargement of the central pulmonary arteries suggesting pulmonary hypertension - this is a chronic finding. Moderate pericardial effusion with increased fluid density suggesting hemopericardium or, less likely, inflammation. This is progressed from the CT three months ago. Moderate atelectasis within the right middle lobe, lingula and both lower lobes as described. Moderate bilateral pleural effusions - all new. Mediastinal adenopathy new. Small amount of ascites - new. Etiology unknown May 14: Nasal MRSA screen is negative. Blood cultures are negative so far. Chest x-ray:IMPRESSION: Small densely consolidated regions of atelectasis or infiltrate in both lower lobes with small effusions. CT of the abdomen: IMPRESSION: Large amount of edema within Camper's fascia over the right flank - new from the comparison CT two months ago. This may be posttraumatic or inflammatory. Small hemopericardium - slightly improved from exam two months prior. Suspect is related to chronic renal disease. Moderate left and small right pleural effusions with moderate bibasilar airspace disease most likely atelectasis rather than infiltrate - new from prior study. Marked bilateral renal atrophy bilaterally end-stage renal failure. Multiple nonobstructing stones in the calyces of both kidneys. 3 cm benign adenoma left adrenal gland which demonstrates long-term stability. Small amount of free fluid in the deep true pelvis - increased from previous study. Small bowel resection changes in the left upper quadrant with primary anastomosis. 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 No change Medical - DS: A/P - Patient/Caregiver Discharge Instructions Activity: as per physical therapy Diet: Renal - Follow up Plan Follow up with: Carla Valentin MD [Physician] - Maribel Jaimes DNP, DRIVE AWAY DRIVER [Primary Care Provider] - Disposition: [facility] Prognosis: Fair Rehab Potential: Fair Overall status at discharge: patient is progressing back to baseline Medical - DS: Qual - VTE Deep Vein Thrombosis/Pulmonary Embolism Present on Admission: No
[2017-05-20] MEDS: traZODone HCL 50 MG TABLET PO SCH (21:55)
[2017-05-20] MEDS: SENNOSIDES 1 TABLET PO SCH (21:56)
[2017-05-20] MEDS: PANTOPRAZOLE 40 MG TABLET PO SCH (21:56)
[2017-05-20] MEDS: SIMVASTATIN 20 MG TABLET PO SCH (21:56)
[2017-05-21] MEDS ORDERED: predniSONE 20 MG TABLET PO SCH (08:00)
== END 2017-05-20 22:00 | disposition other institution (70) | DRG 555 ==
LOC: MEDSUR 11:39 → ED 11:39 → MEDSUR 18:10 → ICU 05-17 16:42
PROVIDERS: ADMIT Internal Medicine; ATTEND Internal Medicine

== ENCOUNTER 2017-05-20 17:05 | Inpatient (IN) ==
[2017-05-20] MEDS ORDERED: ACETAMINOPHEN 325 MG TABLET PO PRN (21:24)
[2017-05-20] MEDS ORDERED: ALBUTEROL SULFATE 2.5 MG/3 ML NEBULIZER NEB PRN (21:25)
[2017-05-20] MEDS: HYDROmorphone 2 MG/ML SYRINGE IV PRN (22:45)
[2017-05-20] MEDS: 0.9 % SODIUM CHLORIDE 10 ML SYRINGE IV SCH (22:45)
[2017-05-21 04:51] LABS: Basophils # (Auto) 0.1 K/mcL (0.0-0.3); Basophils % (Auto) 0.3 % (0.0-2.0); Eosinophils # (Auto) 0.1 K/mcL (0.0-0.7); Eosinophils % (Auto) 0.3 % (0.0-7.0); Granulocytes % (Auto) 82.1 % (38.0-78.0); Lymphocytes # (Auto) 1.6 K/mcL (1.5-4.8); Lymphocytes % (Auto) 9.8 % (15.5-49.0); Mean Cell Volume 107.9 fL (80.0-100.0); Mean Corpuscular HGB Conc 31.9 g/dL (31.0-36.0); Mean Corpuscular Hemoglobin 34.5 pg (26.0-34.0); Monocytes # (Auto) 1.2 K/mcL (0.1-0.9); Monocytes % (Auto) 7.5 % (1.0-12.0); Platelet Count 227 K/mcL (140-440); RBC 3.77 M/mcL (4.00-5.20); Red Cell Distribution Width 19.9 % (11.5-14.5)
[2017-05-21 05:08] LABS: Blood Urea Nitrogen 36 mg/dl (8-23)
[2017-05-21] MEDS: HYDROmorphone 2 MG/ML SYRINGE IV PRN (05:54)
[2017-05-21] MEDS: 0.9 % SODIUM CHLORIDE 10 ML SYRINGE IV SCH ×4 (06:05→21:49)
[2017-05-21] MEDS: CALCIUM ACETATE 667 MG CAPSULE PO SCH ×3 (08:05→17:04)
[2017-05-21] MEDS: predniSONE 20 MG TABLET PO SCH (08:06)
[2017-05-21] MEDS: SEVELAMER 800 MG TABLET PO SCH ×3 (08:06→17:04)
[2017-05-21] MEDS: IPRATROPIUM/ALBUTEROL 3 ML AMPUL.NEB NEB SCH ×2 (09:17→21:01)
[2017-05-21] MEDS: BUDESONIDE 0.5 MG/2 ML AMPUL.NEB NEB SCH ×2 (09:17→21:01)
[2017-05-21] MEDS: LIDOCAINE PATCH TOPICAL SCH (09:57)
--- NOTE | 2017-05-21 10:24 | Internal Med History&Physical ---
Medical - H&P: [facility] Patient information: Note initiated : 05/21/17 at 10:23 am Service Date, if different from initiated Date: [] Patient: Naz Joseph 71 y/o F admitted on 05/20/17 for Fascitis, Right Flank Pain. Chief Complaint: [] History of present illness: Ms. Joseph is a 71 year old female who was admitted to [facility] on May 14 with fairly sudden, severe, right flank pain. Workup showed possible inflammation of the Camper's fascia, but surgical evaluation did not reveal any infection. Over the course of her stay it was realized that the patient had fairly diffuse edema including pericardial effusion and ascites and pleural effusions. She is a chronic dialysis patient, but she had not been tolerating removing enough fluid during dialysis to get her to her target dry weight. [employer] then recommended daily dialysis with smaller volume removals, to see if her blood pressures would tolerate this. She has been getting daily dialysis for the last few days, with blood pressure support from midodrine. She has been tolerating this better. We are hoping that she can go back to dialysis just 3 days a week. The patient has noted dyspnea with exertion for some time now, but says that seems to be getting better over the last few days. She did have follow-up echocardiogram that did not show any enlargement of her pericardial effusion from the last check. -She continues to have occasional right flank pain of uncertain etiology. This is being managed with pain medications. -She does have known COPD, and is managed with bronchodilators and prednisone, and this seems to be fairly stable. -Today, patient is being admitted to swing bed status for continued rehab. She states she is feeling overall better. She tolerated walking with her walker better today and had much decreased shortness of breath. Her lower extremity edema is also improving, and she is pleased about that. She otherwise denies fever or chills, headaches or dizziness, new eye or ear symptoms, sore throat or cough, chest pain or palpitations, abdominal pain, nausea or vomiting, diarrhea or constipation. She has minimal urine output and is on chronic dialysis. She notes her breathing does seem quite a bit improved after each breathing treatment. Medical - H&P: [facility] Medical history: 1. End-stage renal disease on hemodialysis secondary to hypertensive renal disease and obstructive uropathy 2. Pulmonary fibrosis/copd 3. CAD 4. Obstructive sleep apnea 5. History of aspiration with what she describes as an esophageal stricture 6. Hypertension 7. Secondary hypothyroidism 8. Vitamin B-12 deficiency 9. Osteoarthritis 10. Fibromyalgia 11. Gout 12. Hemorrhoids Surgical history: Arteriovenous fistula, acquired,History of bariatric surgery ,History of resection of small bowel (Chronic 03/23/15),History of lithotripsy (Acute ) History of gastrointestinal surgery (Chronic),History of rectal surgery (Chronic ),Hx of appendectomy (Chronic),Hx of cataract surgery (Chronic) Hx of shoulder surgery ,Hx of tonsillectomy ,S/P JOSE-BSO (Chronic),S/P nerve repair (Chronic),History of adenoidectomy (Resolved) History of hemorrhoidectomy (Resolved),History of hysterectomy (Resolved), History of lithotripsy (Resolved 01/12/09),History of oophorectomy (Resolved) History of tonsillectomy (Resolved),History of ureter repair (Resolved 09/02/12) ,History of ureter stent (Resolved 11/29/08) Yesterday's discharge medications: Tylenol 650 mg every 4 hours as needed Albuterol 2.5 mg nebulizer every 2 hours as needed Duo nebs twice daily Aspirin 81 mg daily Dulcolax 10 mg per rectum daily 2-3 days as needed Budesonide nebs 0.5 mg every 12 hours Calcium acetate 667 mg p.o. 3 times daily Plavix 75 mg daily B12 1000 mcg daily Fluoxetine 40 mg daily Robitussin-DM 10 mL every 4 hours as needed Dilaudid 2-3 mg every 4 hours p.o. as needed Dilaudid 1 mg IV every 2 hours as needed Lidoderm patch one topically daily, remove after 12 hours Midodrine 10 mg p.o. 3 times daily Zofran 4 mg IV every 6 hours as needed Protonix 40 mg p.o. nightly Prednisone 20 mg p.o. daily Senna 2 tabs p.o. nightly Renvela 800 mg p.o. 3 times daily Zocor 20 mg nightly Trazodone 250 mg nightly Vitamin D 1000 units daily Pertinent family history: She reports her father had a brain aneurysm. Her mother had a heart attack. Her sister had kidney stones. There is also reportedly a family history of diabetes and hypertension. Social history: She previously lived independently with her and took care of him. She was recently rehabilitating at [facility] following an admission for pneumonia and volume overload. She is currently using a walker to ambulate and sometimes needs to be wheeled in a wheelchair. She has a prior history of smoking but quit in 2004.. She denies alcohol or recreational drug use. She is a DNR, that would accept short-term intubation. Her healthcare power of senior attorney is Kayla Rodriguez, a family friend. Medical - H&P: Meds Home Medications Medication Instructions Recorded Confirmed Type acetaminophen 500 mg tablet 1,000 mg PO Q6H PRN tab 12/03/14 05/20/17 History cholecalciferol (vitamin D3) 1,000 1,000 unit PO QDAY cap 12/03/14 05/20/17 History unit capsule cyanocobalamin (vit B-12) ER 1,000 1,000 mcg PO QDAY tab 12/03/14 05/20/17 History mcg tablet,extended release sevelamer carbonate 800 mg tablet 800 mg PO TIDAC 06/01/15 05/20/17 History calcium acetate 667 mg capsule 667 mg PO TIDCC 30 Days #60 cap 09/09/15 History fluoxetine 40 mg capsule 40 mg PO QDAY #90 cap 09/09/15 05/20/17 Rx simvastatin 20 mg tablet 20 mg PO HS 05/17/16 05/20/17 History trazodone 100 mg tablet 250 mg PO QHS 90 Days #225 tab 09/11/16 05/20/17 Rx Clopidogrel Bisulfate [Plavix] 75 mg PO DAILY 04/13/17 05/20/17 History Budesonide [Pulmicort] 0.5 mg NEB Q12 ampul.neb 04/20/17 05/20/17 Rx Ipratropium/Albuterol [Duoneb] 3 ml NEB Q6H #1 ampul.neb 04/20/17 05/20/17 Rx Pantoprazole [Protonix] 40 mg PO QHS #1 tab 04/20/17 05/20/17 Rx guaiFENesin/DEXTROMETHORPHAN 10 ml PO Q4HP PRN ml 04/20/17 05/20/17 Rx [Robitussin Dm] suvorexant 10 mg tablet 10 mg PO HS PRN #30 tab 04/24/17 05/20/17 Rx HYDROmorphone HCL [Dilaudid] 2 mg PO Q8HP PRN #40 tab 04/27/17 05/20/17 Rx 0.9 % Sodium Chloride [Saline 10 ml IV Q8 syringe 05/20/17 05/20/17 Rx Flush] Albuterol Sulfate [Ventolin] 2.5 mg NEB Q2HP PRN ampul.neb 05/20/17 05/20/17 Rx Aspirin 81 mg PO DAILY tab.chew 05/20/17 05/20/17 Rx Bisacodyl [Dulcolax] 10 mg RI Q2-3DAYS PRN supp.rect 05/20/17 05/20/17 Rx Cyanocobalamin (Vitamin B-12) 1,000 mcg PO DAILY tablet 05/20/17 05/20/17 Rx [Vitamin B-12] HYDROmorphone [Dilaudid] 1 mg IV Q2HP PRN syringe 05/20/17 05/20/17 Rx Ipratropium/Albuterol [Duoneb] 3 ml NEB BID ampul.neb 05/20/17 05/20/17 Rx Lidocaine [Lidoderm] 0 patch TOPICAL DAILY patch 05/20/17 05/20/17 Rx Midodrine [Midodrine HCl] 10 mg PO TID@0800,1200,1700 tablet 05/20/17 05/20/17 Rx Ondansetron [Zofran] 4 mg IV Q6HP PRN vial 05/20/17 05/20/17 Rx Sennosides [Senokot] 2 tab PO HS tablet 05/20/17 05/20/17 Rx predniSONE [Prednisone] 20 mg PO QAMCC tablet 05/20/17 05/20/17 Rx Allergies Allergy/AdvReac Type Severity Reaction Status Date / Time codeine Allergy Mild Hives Verified 05/14/17 19:56 Oxycodone Allergy Mild Rash Verified 05/14/17 19:56 NSAIDS (Non-Steroidal Allergy Unknown Unknown Verified 05/14/17 19:56 Anti-Inflamma meperidine [From Demerol] AdvReac Mild Itching Verified 05/14/17 19:56 Medical - H&P: Exam - Constitutional Vitals: Temp Pulse Resp BP Pulse Ox 97.4 F 74 16 99/66 98 05/21/17 07:43 05/21/17 09:19 05/21/17 09:19 05/21/17 07:43 05/21/17 07:43 On exam, she is lying in her bed, awake and alert. She is in no acute distress. She seems in good spirits. Head: Normocephalic, atraumatic. Eyes: PERRLA, EOMI, anicteric. Ears: TMs and canals are clear. Pharynx: Pharynx is clear. She has partial plates in place. Neck: Is supple, without lymphadenopathy, JVD, thyromegaly, bruits. Cardiac exam: Is regular rate and rhythm with normal S1 and S2. No murmurs, rubs, gallops are noted. Lungs: Are clear to auscultation, without rales, rhonchi, wheezes. Abdomen: Is soft and nontender without obvious masses. Bowel sounds are active. Extremities: Show about 1+ edema, improved from before. There is some chronic stasis dermatitis changes. Neurologic exam: Is grossly nonfocal. Medical - H&P: Reslt - Labs CBC & Chem 7: 05/21/17 04:00 05/21/17 04:00 Labs: Short CBC 05/21/17 Range/Units 04:00 WBC 16.5 H (4.5-11.0) K/mcL Hgb 13.0 (12.0-15.0) g/dL Hct 40.7 (36.0-48.0) % Plt Count 227 (140-440) K/mcL BMP 05/21/17 04:00 Sodium 138 Potassium 4.9 Chloride 93 L Carbon Dioxide 22 BUN 36 H Creatinine 4.0 H Glucose 122 H May 21: CBC: White blood cell count 16,500, differential shows 13,500 neutrophils. May 20: Chest x-ray: IMPRESSION: Small region of densely consolidated atelectasis or infiltrate in the posterior medial left lower lobe - stable May 18: Echocardiogram: Is technically limited. Ejection fraction probably 60%. Probable left atrial enlargement. No definite free-flowing pericardial effusion is seen, but suboptimal study. May 17: Nasal MRSA screen is negative. May 16: D-dimer is elevated at 6.3 CT angiogram of the chest: IMPRESSION: No evidence of pulmonary embolus. Mild enlargement of the central pulmonary arteries suggesting pulmonary hypertension - this is a chronic finding. Moderate pericardial effusion with increased fluid density suggesting hemopericardium or, less likely, inflammation. This is progressed from the CT three months ago. Moderate atelectasis within the right middle lobe, lingula and both lower lobes as described. Moderate bilateral pleural effusions - all new. Mediastinal adenopathy new. Small amount of ascites - new. Etiology unknown May 14: -Nasal MRSA screen is negative. -Blood cultures are negative . -Chest x-ray:IMPRESSION: Small densely consolidated regions of atelectasis or infiltrate in both lower lobes with small effusions. -CT of the abdomen: IMPRESSION: Large amount of edema within Camper's fascia over the right flank - new from the comparison CT two months ago. This may be posttraumatic or inflammatory. Small hemopericardium - slightly improved from exam two months prior. Suspect is related to chronic renal disease. Moderate l eft and small right pleural effusions with moderate bibasilar airspace disease most likely atelectasis rather than infiltrate - new from prior study. Marked bilateral renal atrophy bilaterally end-stage renal failure. Multiple nonobstructing stones in the calyces of both kidneys. 3 cm benign adenoma left adrenal gland which demonstrates long-term stability. Small amount of free fluid in the deep true pelvis - increased from previous study. Small bowel resection changes in the left upper quadrant with primary anastomosis. 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 No change Medical - H&P: A/P (1) Dyspnea Current visit: No Status: Acute (2) Fluid overload Current visit: No Status: Acute (3) Pain management Current visit: No Status: Acute (4) Weakness Current visit: No Status: Acute (5) Chronic kidney disease, stage IV (severe) Problem details: Most recent S.creatinine is 1.9 which to eGFR of 26ml/min, her renal function is stable and at baseline. She does have moderate proteinuria Etiology: likely related to obstructive uropathy Plan: Labs discussed with the patient Renal function stable and at baseline per review of records I have advised her to avoid NSAIDS, volume depletion I have educated her about the importance of HTN control to prevent the progression of renal disease She does have h/o renal osteodystrophy and I will obtain a PTH, phosphate and vitamin D level prior to next visit Current visit: No Status: Chronic (6) Hypertension Current visit: No Status: Chronic - Narrative A/P Narrative: #1. Ongoing weakness, after prolonged illness with volume overload and previous pneumonia. Patient will pursue both physical and occupational therapies, to try to get back to her baseline functional status. 2. Infectious disease. Patient has an elevated white blood cell count today, for uncertain reasons. She looks well, and has no particular complaints. She does continue on oral and inhaled prednisone, so perhaps that is part of the issue. I will check a follow-up chest x-ray in the morning. 3.. End stage renal disease on dialysis--HD T, Th, Sat. -The patient did tolerate daily dialysis over the last few days. She has tolerated slightly more volume being removed.. (Per Dr. Valentin: ESRD (end stage renal disease) on dialysis PUF today for 2.5 hrs with goal of 1.5-2l as tolerated with help of midodrine and mannitol to support if needed for hypotension I will ct to taper prednisone and maintain her on 5mg I will continue to cut back on dilaudid ) #4.. CAD--cont ASA/Plavix, simvastatin 20 QHS #5.. Fibromyalgia--occasionally uses po Dilaudid. Multiple opiate intolerances. Cont home fluoxetine #6.. B12 deficiency--h/o gastric bypass. Cont daily replacement #7.. DVT prophylaxis--heparin #6. CODE STATUS--DNR. Short-term intubation OK. HCPOA is her friend, Holli Rodriguez. #7. Right flank pain -Clinically, the patient is improving. Dr. Ricketts did not feel that there are signs of active infection. 8. Pulmonary. Patient has reported history of COPD, sleep apnea, pulmonary fibrosis. Resumed budesonide nebs. Scheduled duo nebs. Added as needed albuterol nebs. Medical - H&P: Qual - Stroke Symptom Onset Unknown: No - VTE Deep Vein Thrombosis/Pulmonary Embolism Present on Admission: No
[2017-05-21] MEDS ORDERED: ONDANSETRON 4 MG/2 ML VIAL IV PRN (17:17)
[2017-05-21] MEDS ORDERED: BISACODYL 10 MG SUPP.RECT PR PRN (17:17)
[2017-05-21] MEDS ORDERED: guaiFENesin/DEXTROMETHORPHAN ORAL SOL PO PRN (17:17)
[2017-05-21] MEDS: HYDROmorphone 2 MG TABLET PO PRN (20:13)
[2017-05-21] MEDS: PANTOPRAZOLE 40 MG TABLET PO SCH (20:13)
[2017-05-21] MEDS: traZODone HCL 50 MG TABLET PO SCH (20:13)
[2017-05-21] MEDS: SENNOSIDES 1 TABLET PO SCH (20:13)
[2017-05-21] MEDS: SIMVASTATIN 20 MG TABLET PO SCH (20:18)
[2017-05-22] MEDS: 0.9 % SODIUM CHLORIDE 10 ML SYRINGE IV SCH ×5 (04:48→21:30)
[2017-05-22 06:28] LABS: Basophils # (Auto) 0 K/mcL (0.0-0.3); Basophils % (Auto) 0.1 % (0.0-2.0); Eosinophils # (Auto) 0.1 K/mcL (0.0-0.7); Eosinophils % (Auto) 0.6 % (0.0-7.0); Granulocytes % (Auto) 85.3 % (38.0-78.0); Lymphocytes # (Auto) 1.3 K/mcL (1.5-4.8); Lymphocytes % (Auto) 8.5 % (15.5-49.0); Mean Cell Volume 104.6 fL (80.0-100.0); Mean Corpuscular HGB Conc 32.2 g/dL (31.0-36.0); Mean Corpuscular Hemoglobin 33.7 pg (26.0-34.0); Monocytes # (Auto) 0.8 K/mcL (0.1-0.9); Monocytes % (Auto) 5.5 % (1.0-12.0); Platelet Count 190 K/mcL (140-440); RBC 3.66 M/mcL (4.00-5.20); Red Cell Distribution Width 18.8 % (11.5-14.5)
--- NOTE | 2017-05-22 08:16 | XRay Report ---
HISTORY: Reason for Exam:leukocytosis FINDINGS: There are bands of discoid atelectasis in both lung bases adjacent to diaphragm. There is also a small right-sided pleural effusion. Heart size is normal. Mid and upper lung mendez are clear. Lung volumes remain relatively small due to suboptimal inspiration. Comparison with the prior exam from 05/20/17 shows mild improvement of the aeration in both lungs. IMPRESSION: Improving atelectasis in both lower lobes. Interpreted and Authenticated by: Jose Rodriguez 05/22/17
[2017-05-22] MEDS: CYANOCOBALAMIN (VITAMIN B-12) 500 MCG TABLET PO SCH (08:31)
[2017-05-22] MEDS: MIDODRINE 5 MG TABLET PO SCH ×3 (08:31→17:38)
[2017-05-22] MEDS: VITAMIN D3 1,000 UNIT TABLET PO SCH (08:31)
[2017-05-22] MEDS: CALCIUM ACETATE 667 MG CAPSULE PO SCH ×3 (08:31→17:38)
[2017-05-22] MEDS: CLOPIDOGREL 75 MG TABLET PO SCH (08:31)
[2017-05-22] MEDS: FLUoxetine HCL 20 MG CAPSULE PO SCH (08:31)
[2017-05-22] MEDS: SEVELAMER 800 MG TABLET PO SCH ×3 (08:31→17:38)
[2017-05-22] MEDS: ASPIRIN 81 MG TAB.CHEW PO SCH (08:31)
[2017-05-22] MEDS: predniSONE 20 MG TABLET PO SCH (08:31)
[2017-05-22] MEDS ORDERED: CYANOCOBALAMIN (VITAMIN B-12) 500 MCG TABLET PO SCH (09:00)
[2017-05-22] MEDS: BUDESONIDE 0.5 MG/2 ML AMPUL.NEB NEB SCH ×2 (09:14→21:05)
[2017-05-22] MEDS: IPRATROPIUM/ALBUTEROL 3 ML AMPUL.NEB NEB SCH ×2 (09:14→21:05)
[2017-05-22] MEDS: traZODone HCL 50 MG TABLET PO SCH (21:30)
[2017-05-22] MEDS: SENNOSIDES 1 TABLET PO SCH (21:31)
[2017-05-22] MEDS: PANTOPRAZOLE 40 MG TABLET PO SCH (21:31)
[2017-05-22] MEDS: SIMVASTATIN 20 MG TABLET PO SCH (21:31)
[2017-05-22] MEDS: HYDROmorphone 2 MG TABLET PO PRN (21:31)
[2017-05-23] MEDS: LIDOCAINE PATCH TOPICAL SCH ×2 (00:27→10:11)
[2017-05-23] MEDS: 0.9 % SODIUM CHLORIDE 10 ML SYRINGE IV SCH ×5 (00:29→21:35)
[2017-05-23] MEDS ORDERED: HYDROmorphone 2 MG/ML SYRINGE IV PRN (07:55)
[2017-05-23] MEDS: SEVELAMER 800 MG TABLET PO SCH ×3 (08:06→17:36)
[2017-05-23] MEDS: CYANOCOBALAMIN (VITAMIN B-12) 500 MCG TABLET PO SCH (08:07)
[2017-05-23] MEDS: FLUoxetine HCL 20 MG CAPSULE PO SCH (08:07)
[2017-05-23] MEDS: VITAMIN D3 1,000 UNIT TABLET PO SCH (08:07)
[2017-05-23] MEDS: MIDODRINE 5 MG TABLET PO SCH ×3 (08:07→17:36)
[2017-05-23] MEDS: predniSONE 20 MG TABLET PO SCH (08:07)
[2017-05-23] MEDS: CLOPIDOGREL 75 MG TABLET PO SCH (08:07)
[2017-05-23] MEDS: CALCIUM ACETATE 667 MG CAPSULE PO SCH ×3 (08:08→17:36)
[2017-05-23] MEDS: ASPIRIN 81 MG TAB.CHEW PO SCH (08:08)
[2017-05-23 09:11] LABS: Basophils # (Auto) 0 K/mcL (0.0-0.3); Basophils % (Auto) 0.2 % (0.0-2.0); Eosinophils # (Auto) 0.1 K/mcL (0.0-0.7); Eosinophils % (Auto) 0.6 % (0.0-7.0); Granulocytes % (Auto) 78.1 % (38.0-78.0); Lymphocytes # (Auto) 2.2 K/mcL (1.5-4.8); Lymphocytes % (Auto) 12.7 % (15.5-49.0); Mean Cell Volume 106.7 fL (80.0-100.0); Mean Corpuscular HGB Conc 32.6 g/dL (31.0-36.0); Mean Corpuscular Hemoglobin 34.8 pg (26.0-34.0); Monocytes # (Auto) 1.5 K/mcL (0.1-0.9); Monocytes % (Auto) 8.4 % (1.0-12.0); Platelet Count 193 K/mcL (140-440); RBC 3.74 M/mcL (4.00-5.20); Red Cell Distribution Width 20.3 % (11.5-14.5)
[2017-05-23] MEDS: BUDESONIDE 0.5 MG/2 ML AMPUL.NEB NEB SCH ×2 (09:21→21:15)
[2017-05-23] MEDS: IPRATROPIUM/ALBUTEROL 3 ML AMPUL.NEB NEB SCH ×2 (09:22→21:15)
[2017-05-23 09:27] LABS: ALT/SGPT 21 U/l (0-40); Albumin/Globulin Ratio 1.4 (1.0-2.3); Alkaline Phosphatase 96 U/L (39-117); Bilirubin,Direct < 0.2 mg/dL (0.0-0.3); Blood Urea Nitrogen 40 mg/dl (8-23); Gamma Glutamyl Transpeptidase 23 U/L (5-36); Magnesium 2.2 mg/dL (1.6-2.5); Uric Acid 3.6 mg/dL (2.5-8.0)
--- NOTE | 2017-05-23 12:02 | Internal Med Progress Note ---
Medical - PN: Subj Patient information: Note initiated : 05/23/17 at 12:02 pm Service Date, if different from initiated Date: [] Patient: Naz Joseph 71 y/o F admitted on 05/20/17 for Fascitis, Right Flank Pain. Chief Complaint: [] Interval history: May 21, 2017: History of present illness: Ms. Joseph is a 71 year old female who was admitted to [facility] on May 14 with fairly sudden, severe, right flank pain. Workup showed possible inflammation of the Camper's fascia, but surgical evaluation did not reveal any infection. Over the course of her stay it was realized that the patient had fairly diffuse edema including pericardial effusion and ascites and pleural effusions. She is a chronic dialysis patient, but she had not been tolerating removing enough fluid during dialysis to get her to her target dry weight. Band Sawmill Operator then recommended daily dialysis with smaller volume removals, to see if her blood pressures would tolerate this. She has been getting daily dialysis for the last few days, with blood pressure support from midodrine. She has been tolerating this better. We are hoping that she can go back to dialysis just 3 days a week. The patient has noted dyspnea with exertion for some time now, but says that seems to be getting better over the last few days. She did have follow-up echocardiogram that did not show any enlargement of her pericardial effusion from the last check. -She continues to have occasional right flank pain of uncertain etiology. This is being managed with pain medications. -She does have known COPD, and is managed with bronchodilators and prednisone, and this seems to be fairly stable. -Today, patient is being admitted to swing bed status for continued rehab. She states she is feeling overall better. She tolerated walking with her walker better today and had much decreased shortness of breath. Her lower extremity edema is also improving, and she is pleased about that. She otherwise denies fever or chills, headaches or dizziness, new eye or ear symptoms, sore throat or cough, chest pain or palpitations, abdominal pain, nausea or vomiting, diarrhea or constipation. She has minimal urine output and is on chronic dialysis. She notes her breathing does seem quite a bit improved after each breathing treatment. May 23: Today, the patient notes she continues to make steady improvement. She is feeling stronger and is having less dyspnea with exertion. She feels the edema in her legs is finally noticeably less. Otherwise she denies fever chills, chest pain or shortness of breath, abdominal pain, nausea or vomiting, diarrhea or constipation. - Constitutional Vitals: Vital Signs Temp Pulse Resp BP Pulse Ox 97.4 F 66 14 92/64 96 05/23/17 11:16 05/23/17 11:16 05/23/17 11:16 05/23/17 11:16 05/23/17 11:16 Period Temp Pulse Resp BP Sys/Millan Pulse Ox Last 24 Hr 96.8 F-98.5 F 65-69 12- 92-100/63-66 94-96 Intake and Output 05/22/17 05/23/17 05/23/17 21:59 05:59 13:59 Intake Total 175 / 175 360 / 360 240 / 240 Output Total 1500 / 1500 Balance -1325 / -1325 360 / 360 240 / 240 Weight 193 lb 8 oz Intake & Output: Intake & Output 05/22/17 05/23/17 05/23/17 21:59 05:59 13:59 Intake Total 175 / 175 360 / 360 240 / 240 Output Total 1500 / 1500 Balance -1325 / -1325 360 / 360 240 / 240 Weight 193 lb 8 oz Intake: Oral 175 / 175 360 / 360 240 / 240 Output: Hemodialysis UF 1500 / 1500 Other: Meal Dinner Percent of Meal Consumed 100% Feeding Ability Independent Independent On exam, she is sitting up in her chair. She is in no acute distress. Neck is supple without lymphadenopathy or JVD. Cardiac exam shows regular rate and rhythm. Lungs are clear to auscultation. Abdomen is soft and nontender. Extremities: Show 1-2+ edema, improving. Medical - PN: Obj Da - Labs CBC & Chem 7: 05/23/17 08:30 05/23/17 08:30 Labs: Abnormal Lab Results 05/23/17 05/23/17 05/22/17 08:30 08:30 04:12 WBC 17.4 H 15.3 H RBC 3.74 L 3.66 L MCV 106.7 H 104.6 H MCH 34.8 H RDW 20.3 H 18.8 H Gran % 78.1 H 85.3 H Lymph % (Auto) 12.7 L 8.5 L Gran # 13.6 H 13.1 H Lymph # (Auto) 1.3 L [place] # (Auto) 1.5 H Chloride 91 L Anion Gap 17.0 H BUN 40 H Creatinine 3.6 H Glucose 126 H Phosphorus 2.3 L 05/21/17 05/21/17 04:00 04:00 WBC 16.5 H RBC 3.77 L MCV 107.9 H MCH 34.5 H RDW 19.9 H Gran % 82.1 H Lymph % (Auto) 9.8 L Gran # 13.5 H Lymph # (Auto) [place] # (Auto) 1.2 H Chloride 93 L Anion Gap 23.0 H BUN 36 H Creatinine 4.0 H Glucose 122 H Phosphorus May 22: Chest x-ray: Shows improving atelectasis in both lower lobes. Small right- sided pleural effusion. Overall improved aeration. May 21: CBC: White blood cell count 16,500, differential shows 13,500 neutrophils. May 20: Chest x-ray: IMPRESSION: Small region of densely consolidated atelectasis or infiltrate in the posterior medial left lower lobe - stable May 18: Echocardiogram: Is technically limited. Ejection fraction probably 60%. Probable left atrial enlargement. No definite free-flowing pericardial effusion is seen, but suboptimal study. May 17: Nasal MRSA screen is negative. May 16: D-dimer is elevated at 6.3 CT angiogram of the chest: IMPRESSION: No evidence of pulmonary embolus. Mild enlargement of the central pulmonary arteries suggesting pulmonary hypertension - this is a chronic finding. Moderate pericardial effusion with increased fluid density suggesting hemopericardium or, less likely, inflammation. This is progressed from the CT three months ago. Moderate atelectasis within the right middle lobe, lingula and both lower lobes as described. Moderate bilateral pleural effusions - all new. Mediastinal adenopathy new. Small amount of ascites - new. Etiology unknown May 14: -Nasal MRSA screen is negative. -Blood cultures are negative . -Chest x-ray:IMPRESSION: Small densely consolidated regions of atelectasis or infiltrate in both lower lobes with small effusions. -CT of the abdomen: IMPRESSION: Large amount of edema within Camper's fascia over the right flank - new from the comparison CT two months ago. This may be posttraumatic or inflammatory. Small hemopericardium - slightly improved from exam two months prior. Suspect is related to chronic renal disease. Moderate l eft and small right pleural effusions with moderate bibasilar airspace disease most likely atelectasis rather than infiltrate - new from prior study. Marked bilateral renal atrophy bilaterally end-stage renal failure. Multiple nonobstructing stones in the calyces of both kidneys. 3 cm benign adenoma left adrenal gland which demonstrates long-term stability. Small amount of free fluid in the deep true pelvis - increased from previous study. Small bowel resection changes in the left upper quadrant with primary anastomosis. 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 No change Meds: Medications Acetaminophen (Tylenol) 650 mg PO Q4-6HP PRN PRN Reason: PAIN/FEVER > 101 Albuterol Sulfate (Ventolin) 2.5 mg NEB Q2HP PRN PRN Reason: Shortness Of Breath Albuterol/Ipratropium (Duoneb) 3 ml NEB BID [facility] Last Admin: 05/23/17 09:22 Dose: 3 ml Aspirin (Aspirin) 81 mg PO DAILY [facility] Last Admin: 05/23/17 08:08 Dose: 81 mg Bisacodyl (Dulcolax) 10 mg IN Q2-3DAYS PRN PRN Reason: Constipation Budesonide (Pulmicort) 0.5 mg NEB Q12 [facility] Last Admin: 05/23/17 09:21 Dose: 0.5 mg Calcium Acetate (Phoslo) 667 mg PO TIDCC [facility] Last Admin: 05/23/17 08:08 Dose: 667 mg Clopidogrel Bisulfate (Plavix) 75 mg PO DAILY [facility] Last Admin: 05/23/17 08:07 Dose: 75 mg Cyanocobalamin (Vitamin B-12) 1,000 mcg PO DAILY [facility] Last Admin: 05/23/17 08:07 Dose: 1,000 mcg Fluoxetine HCl (Prozac) 40 mg PO DAILY [facility] Last Admin: 05/23/17 08:07 Dose: 40 mg Guaifenesin (Robitussin Dm) 10 ml PO Q4HP PRN PRN Reason: Cough Hydromorphone HCl (Dilaudid) 2 mg PO Q8HP PRN PRN Reason: PAIN LEVEL 3-6 Last Admin: 05/22/17 21:31 Dose: 2 mg Hydromorphone HCl (Dilaudid) 0.5 mg IV Q2HP PRN PRN Reason: PAIN LEVEL > 6 Lidocaine (Lidoderm) 1 patch TOPICAL DAILY@1000 [facility] Last Admin: 05/23/17 10:11 Dose: 1 patch Midodrine (Midodrine Hcl) 10 mg PO TID@0800,1200,1700 [facility] Last Admin: 05/23/17 08:07 Dose: 10 mg Ondansetron HCl (Zofran) 4 mg IV Q6HP PRN PRN Reason: Nausea And Vomiting Pantoprazole Sodium (Protonix) 40 mg PO [facility] Last Admin: 05/22/17 21:31 Dose: 40 mg Prednisone (Prednisone) 10 mg PO [facility] Last Admin: 05/23/17 08:07 Dose: 10 mg Senna (Senokot) 2 tab PO [facility] Last Admin: 05/22/17 21:31 Dose: 2 tab Sevelamer Carbonate (Renvela) [facility] Last Admin: 05/23/17 08:06 Dose: 800 mg Simvastatin (Zocor) 20 mg PO [facility] Last Admin: 05/22/17 21:31 Dose: 20 mg Sodium Chloride (Saline Flush) 10 ml IV Q8 [facility] Last Admin: 05/23/17 08:08 Dose: 10 ml Trazodone HCl (Desyrel) 250 mg PO [facility] Last Admin: 05/22/17 21:30 Dose: 250 mg Vitamin D (Vitamin D3) 1,000 unit PO DAILY [facility] Last Admin: 05/23/17 08:07 Dose: 1,000 unit Medical - PN: A/P - Time Spent With Patient Total time spent is greater than 50% in coordination of care (as documented) at patient's floor/unit and/or counseling patient: 25 - 35 minutes (1) Dyspnea Status: Acute Current Visit: No (2) Fluid overload Status: Acute Current Visit: No (3) Pain management Status: Acute Current Visit: No (4) Weakness Status: Acute Current Visit: No (5) Chronic kidney disease, stage IV (severe) Problem details: Most recent S.creatinine is 1.9 which to eGFR of 26ml/min, her renal function is stable and at baseline. She does have moderate proteinuria Etiology: likely related to obstructive uropathy Plan: Labs discussed with the patient Renal function stable and at baseline per review of records I have advised her to avoid NSAIDS, volume depletion I have educated her about the importance of HTN control to prevent the progression of renal disease She does have h/o renal osteodystrophy and I will obtain a PTH, phosphate and vitamin D level prior to next visit Status: Chronic Current Visit: No (6) Hypertension Status: Chronic Current Visit: No - Narrative A/P Narrative: #1. Ongoing weakness, after prolonged illness with volume overload and previous pneumonia. Patient will pursue both physical and occupational therapies, to try to get back to her baseline functional status. -She does seem to be improving on a daily basis. 2. Infectious disease. Patient has an elevated white blood cell count today, for uncertain reasons. She looks well, and has no particular complaints. She does continue on oral and inhaled prednisone, so perhaps that is part of the issue. Chest x-ray findings continue to improve. However, she does still have a small pleural effusion, so if white blood cell count continues to increase, or she develops fever, this may need to be tapped again. 3.. End stage renal disease on dialysis--HD T, Th, Sat. -The patient did tolerate daily dialysis over the last few days. She has tolerated slightly more volume being removed.. (Per Dr. Valentin: ESRD (end stage renal disease) on dialysis PUF today for 2.5 hrs with goal of 1.5-2l as tolerated with help of midodrine and mannitol to support if needed for hypotension I will ct to taper prednisone and maintain her on 5mg I will continue to cut back on dilaudid ) #4.. CAD--cont ASA/Plavix, simvastatin 20 QHS #5.. Fibromyalgia--occasionally uses po Dilaudid. Multiple opiate intolerances. Cont home fluoxetine #6.. B12 deficiency--h/o gastric bypass. Cont daily replacement #7.. DVT prophylaxis--heparin #6. CODE STATUS--DNR. Short-term intubation OK. HCPOA is her friend, Holli Rodriguez. #7. Right flank pain -Clinically, the patient is improving. Dr. Ricketts did not feel that there are signs of active infection. 8. Pulmonary. Patient has reported history of COPD, sleep apnea, pulmonary fibrosis. Resumed budesonide nebs. Scheduled duo nebs. Added as needed albuterol nebs. Medical - PN: Qual - Stroke Symptom Onset Unknown: No - VTE Deep Vein Thrombosis/Pulmonary Embolism Present on Admission: No
[2017-05-23] MEDS: SENNOSIDES 1 TABLET PO SCH (21:34)
[2017-05-23] MEDS: traZODone HCL 50 MG TABLET PO SCH (21:34)
[2017-05-23] MEDS: PANTOPRAZOLE 40 MG TABLET PO SCH (21:34)
[2017-05-23] MEDS: SIMVASTATIN 20 MG TABLET PO SCH (21:34)
[2017-05-23] MEDS: HYDROmorphone 2 MG TABLET PO PRN (23:49)
[2017-05-24] MEDS: CLOPIDOGREL 75 MG TABLET PO SCH (08:30)
[2017-05-24] MEDS: VITAMIN D3 1,000 UNIT TABLET PO SCH (08:30)
[2017-05-24] MEDS: CALCIUM ACETATE 667 MG CAPSULE PO SCH ×3 (08:30→17:16)
[2017-05-24] MEDS: CYANOCOBALAMIN (VITAMIN B-12) 500 MCG TABLET PO SCH (08:30)
[2017-05-24] MEDS: ASPIRIN 81 MG TAB.CHEW PO SCH (08:31)
[2017-05-24] MEDS: FLUoxetine HCL 20 MG CAPSULE PO SCH (08:31)
[2017-05-24] MEDS: predniSONE 20 MG TABLET PO SCH (08:31)
[2017-05-24] MEDS: SEVELAMER 800 MG TABLET PO SCH ×3 (08:31→17:16)
[2017-05-24] MEDS: MIDODRINE 5 MG TABLET PO SCH ×3 (08:32→16:39)
[2017-05-24] MEDS: 0.9 % SODIUM CHLORIDE 10 ML SYRINGE IV SCH ×3 (08:36→21:25)
[2017-05-24 08:51] LABS: Basophils # (Auto) 0.1 K/mcL (0.0-0.3); Basophils % (Auto) 0.4 % (0.0-2.0); Eosinophils # (Auto) 0.2 K/mcL (0.0-0.7); Granulocytes % (Auto) 76.7 % (38.0-78.0); Lymphocytes # (Auto) 1.8 K/mcL (1.5-4.8); Lymphocytes % (Auto) 11.9 % (15.5-49.0); Mean Cell Volume 106.6 fL (80.0-100.0); Mean Corpuscular HGB Conc 32.8 g/dL (31.0-36.0); Mean Corpuscular Hemoglobin 34.9 pg (26.0-34.0); Monocytes # (Auto) 1.5 K/mcL (0.1-0.9); Platelet Count 166 K/mcL (140-440); Red Cell Distribution Width 19.9 % (11.5-14.5)
[2017-05-24] MEDS: BUDESONIDE 0.5 MG/2 ML AMPUL.NEB NEB SCH ×2 (09:55→21:43)
[2017-05-24] MEDS: IPRATROPIUM/ALBUTEROL 3 ML AMPUL.NEB NEB SCH ×2 (09:55→21:43)
[2017-05-24] MEDS: LIDOCAINE PATCH TOPICAL SCH (12:39)
[2017-05-24] MEDS: HYDROmorphone 2 MG TABLET PO PRN ×2 (12:41→22:24)
[2017-05-24] MEDS: SIMVASTATIN 20 MG TABLET PO SCH (21:24)
[2017-05-24] MEDS: traZODone HCL 50 MG TABLET PO SCH (21:24)
[2017-05-24] MEDS: SENNOSIDES 1 TABLET PO SCH (21:24)
[2017-05-24] MEDS: PANTOPRAZOLE 40 MG TABLET PO SCH (21:24)
[2017-05-25] MEDS: 0.9 % SODIUM CHLORIDE 10 ML SYRINGE IV SCH ×3 (05:11→21:08)
[2017-05-25] MEDS: HYDROmorphone 2 MG TABLET PO PRN ×2 (07:35→20:46)
[2017-05-25] MEDS: CLOPIDOGREL 75 MG TABLET PO SCH (08:24)
[2017-05-25] MEDS: ASPIRIN 81 MG TAB.CHEW PO SCH (08:24)
[2017-05-25] MEDS: FLUoxetine HCL 20 MG CAPSULE PO SCH (08:24)
[2017-05-25] MEDS: SEVELAMER 800 MG TABLET PO SCH ×3 (08:25→17:18)
[2017-05-25] MEDS: MIDODRINE 5 MG TABLET PO SCH ×3 (08:25→17:17)
[2017-05-25] MEDS: CYANOCOBALAMIN (VITAMIN B-12) 500 MCG TABLET PO SCH (08:25)
[2017-05-25] MEDS: VITAMIN D3 1,000 UNIT TABLET PO SCH (08:25)
[2017-05-25] MEDS: predniSONE 20 MG TABLET PO SCH (08:25)
[2017-05-25] MEDS: CALCIUM ACETATE 667 MG CAPSULE PO SCH ×3 (08:25→17:18)
[2017-05-25] MEDS: IPRATROPIUM/ALBUTEROL 3 ML AMPUL.NEB NEB SCH ×2 (08:28→21:10)
[2017-05-25] MEDS: BUDESONIDE 0.5 MG/2 ML AMPUL.NEB NEB SCH ×2 (08:28→21:54)
[2017-05-25] MEDS: LIDOCAINE PATCH TOPICAL SCH (10:25)
[2017-05-25 11:00] LABS: Basophils # (Auto) 0.1 K/mcL (0.0-0.3); Basophils % (Auto) 0.4 % (0.0-2.0); Eosinophils # (Auto) 0.2 K/mcL (0.0-0.7); Eosinophils % (Auto) 1.1 % (0.0-7.0); Granulocytes % (Auto) 77.8 % (38.0-78.0); Lymphocytes # (Auto) 1.8 K/mcL (1.5-4.8); Lymphocytes % (Auto) 12.5 % (15.5-49.0); Mean Cell Volume 106.5 fL (80.0-100.0); Mean Corpuscular HGB Conc 32.8 g/dL (31.0-36.0); Mean Corpuscular Hemoglobin 34.9 pg (26.0-34.0); Monocytes # (Auto) 1.2 K/mcL (0.1-0.9); Monocytes % (Auto) 8.2 % (1.0-12.0); Platelet Count 169 K/mcL (140-440); RBC 3.66 M/mcL (4.00-5.20)
--- NOTE | 2017-05-25 12:40 | Internal Med Progress Note ---
Medical - PN: Subj Patient information: Note initiated : 05/25/17 at 12:40 pm Service Date, if different from initiated Date: [] Patient: Naz Joseph 71 y/o F admitted on 05/20/17 for Fascitis, Right Flank Pain. Chief Complaint: [] Interval history: May 21, 2017: History of present illness: Ms. Joseph is a 71 year old female who was admitted to [facility] on May 14 with fairly sudden, severe, right flank pain. Workup showed possible inflammation of the Camper's fascia, but surgical evaluation did not reveal any infection. Over the course of her stay it was realized that the patient had fairly diffuse edema including pericardial effusion and ascites and pleural effusions. She is a chronic dialysis patient, but she had not been tolerating removing enough fluid during dialysis to get her to her target dry weight. [employer] then recommended daily dialysis with smaller volume removals, to see if her blood pressures would tolerate this. She has been getting daily dialysis for the last few days, with blood pressure support from midodrine. She has been tolerating this better. We are hoping that she can go back to dialysis just 3 days a week. The patient has noted dyspnea with exertion for some time now, but says that seems to be getting better over the last few days. She did have follow-up echocardiogram that did not show any enlargement of her pericardial effusion from the last check. -She continues to have occasional right flank pain of uncertain etiology. This is being managed with pain medications. -She does have known COPD, and is managed with bronchodilators and prednisone, and this seems to be fairly stable. -Today, patient is being admitted to swing bed status for continued rehab. She states she is feeling overall better. She tolerated walking with her walker better today and had much decreased shortness of breath. Her lower extremity edema is also improving, and she is pleased about that. She otherwise denies fever or chills, headaches or dizziness, new eye or ear symptoms, sore throat or cough, chest pain or palpitations, abdominal pain, nausea or vomiting, diarrhea or constipation. She has minimal urine output and is on chronic dialysis. She notes her breathing does seem quite a bit improved after each breathing treatment. May 23: Today, the patient notes she continues to make steady improvement. She is feeling stronger and is having less dyspnea with exertion. She feels the edema in her legs is finally noticeably less. Otherwise she denies fever chills, chest pain or shortness of breath, abdominal pain, nausea or vomiting, diarrhea or constipation. May 25: Today, the patient states she continues to do well. She continues to have very mild dyspnea with exertion, but no fever or chills. Her cough is almost completely gone. She remains afebrile. Blood pressures continue to have her just around 100 systolic. White blood cell count continues elevated, for uncertain reasons. They have not been back to normal since about May 19. Granulocyte count is very slowly trending downwards again. She otherwise denies headaches or dizziness, chest pain or palpitations, wheezing, abdominal pain, nausea or vomiting, diarrhea or constipation. - Constitutional Vitals: Vital Signs Temp Pulse Resp BP Pulse Ox 97.9 F 68 18 94/67 96 05/25/17 06:15 05/25/17 08:46 05/25/17 08:46 05/25/17 06:15 05/25/17 08:46 Period Temp Pulse Resp BP Sys/Millan Pulse Ox Last 24 Hr 97.9 F-98.4 F 64-76 16-18 91-94/63-67 96-98 Intake and Output 05/24/17 05/25/17 05/25/17 21:59 05:59 13:59 Intake Total 120 / 120 180 / 180 240 / 240 Balance 120 / 120 180 / 180 240 / 240 Weight 187 lb 187 lb Patient Weight 05/26/17 05:59 Weight 187 lb Intake & Output: Intake & Output 05/24/17 05/25/17 05/25/17 21:59 05:59 13:59 Intake Total 120 / 120 180 / 180 240 / 240 Balance 120 / 120 180 / 180 240 / 240 Weight 187 lb 187 lb Intake: Oral 120 / 120 180 / 180 240 / 240 Other: Meal Dinner Breakfast Percent of Meal Consumed 100% 100% Feeding Ability Independent Independent On exam, she is sitting up in her chair. She is in no acute distress. Neck is supple without lymphadenopathy or JVD. Cardiac exam shows regular rate and rhythm. Lungs there are just a few crackles at the right base, and otherwise lungs are clear. Abdomen is soft and nontender. Extremities: Show 1-2+ edema, improving. Medical - PN: Obj Da - Labs CBC & Chem 7: 05/25/17 10:00 05/23/17 08:30 Labs: Abnormal Lab Results 05/25/17 05/24/17 05/23/17 10:00 08:25 08:30 WBC 14.3 H 15.4 H RBC 3.66 L 3.80 L MCV 106.5 H 106.6 H MCH 34.9 H 34.9 H RDW 20.0 H 19.9 H MPV 11.1 H Gran % Lymph % (Auto) 12.5 L 11.9 L Gran # 11.1 H 11.8 H Todd # (Auto) 1.2 H 1.5 H Chloride 91 L Anion Gap 17.0 H BUN 40 H Creatinine 3.6 H Glucose 126 H Phosphorus 2.3 L 05/23/17 08:30 WBC 17.4 H RBC 3.74 L MCV 106.7 H MCH 34.8 H RDW 20.3 H MPV Gran % 78.1 H Lymph % (Auto) 12.7 L Gran # 13.6 H Todd # (Auto) 1.5 H Chloride Anion Gap BUN Creatinine Glucose Phosphorus May 22: Chest x-ray: Shows improving atelectasis in both lower lobes. Small right- sided pleural effusion. Overall improved aeration. May 21: CBC: White blood cell count 16,500, differential shows 13,500 neutrophils. May 20: Chest x-ray: IMPRESSION: Small region of densely consolidated atelectasis or infiltrate in the posterior medial left lower lobe - stable May 18: Echocardiogram: Is technically limited. Ejection fraction probably 60%. Probable left atrial enlargement. No definite free-flowing pericardial effusion is seen, but suboptimal study. May 17: Nasal MRSA screen is negative. May 16: D-dimer is elevated at 6.3 CT angiogram of the chest: IMPRESSION: No evidence of pulmonary embolus. Mild enlargement of the central pulmonary arteries suggesting pulmonary hypertension - this is a chronic finding. Moderate pericardial effusion with increased fluid density suggesting hemopericardium or, less likely, inflammation. This is progressed from the CT three months ago. Moderate atelectasis within the right middle lobe, lingula and both lower lobes as described. Moderate bilateral pleural effusions - all new. Mediastinal adenopathy new. Small amount of ascites - new. Etiology unknown May 14: -Nasal MRSA screen is negative. -Blood cultures are negative . -Chest x-ray:IMPRESSION: Small densely consolidated regions of atelectasis or infiltrate in both lower lobes with small effusions. -CT of the abdomen: IMPRESSION: Large amount of edema within Camper's fascia over the right flank - new from the comparison CT two months ago. This may be posttraumatic or inflammatory. Small hemopericardium - slightly improved from exam two months prior. Suspect is related to chronic renal disease. Moderate l eft and small right pleural effusions with moderate bibasilar airspace disease most likely atelectasis rather than infiltrate - new from prior study. Marked bilateral renal atrophy bilaterally end-stage renal failure. Multiple nonobstructing stones in the calyces of both kidneys. 3 cm benign adenoma left adrenal gland which demonstrates long-term stability. Small amount of free fluid in the deep true pelvis - increased from previous study. Small bowel resection changes in the left upper quadrant with primary anastomosis. 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 No change Meds: Medications Acetaminophen (Tylenol) 650 mg PO Q4-6HP PRN PRN Reason: PAIN/FEVER > 101 Albuterol Sulfate (Ventolin) 2.5 mg NEB Q2HP PRN PRN Reason: Shortness Of Breath Albuterol/Ipratropium (Duoneb) 3 ml NEB BID [facility] Last Admin: 05/25/17 08:28 Dose: 3 ml Aspirin (Aspirin) 81 mg PO DAILY [facility] Last Admin: 05/25/17 08:24 Dose: 81 mg Bisacodyl (Dulcolax) 10 mg UT Q2-3DAYS PRN PRN Reason: Constipation Budesonide (Pulmicort) 0.5 mg NEB Q12 [facility] Last Admin: 05/25/17 08:28 Dose: 0.5 mg Calcium Acetate (Phoslo) 667 mg PO TIDCC [facility] Last Admin: 05/25/17 08:25 Dose: 667 mg Clopidogrel Bisulfate (Plavix) 75 mg PO DAILY [facility] Last Admin: 05/25/17 08:24 Dose: 75 mg Cyanocobalamin (Vitamin B-12) 1,000 mcg PO DAILY [facility] Last Admin: 05/25/17 08:25 Dose: 1,000 mcg Fluoxetine HCl (Prozac) 40 mg PO DAILY [facility] Last Admin: 05/25/17 08:24 Dose: 40 mg Guaifenesin (Robitussin Dm) 10 ml PO Q4HP PRN PRN Reason: Cough Hydromorphone HCl (Dilaudid) 2 mg PO Q8HP PRN PRN Reason: PAIN LEVEL 3-6 Last Admin: 05/25/17 07:35 Dose: 2 mg Hydromorphone HCl (Dilaudid) 0.5 mg IV Q2HP PRN PRN Reason: PAIN LEVEL > 6 Lidocaine (Lidoderm) 1 patch TOPICAL DAILY@1000 [facility] Last Admin: 05/25/17 10:25 Dose: 1 patch Midodrine (Midodrine Hcl) 10 mg PO TID@0800,1200,1700 [facility] Last Admin: 05/25/17 08:25 Dose: 10 mg Ondansetron HCl (Zofran) 4 mg IV Q6HP PRN PRN Reason: Nausea And Vomiting Pantoprazole Sodium (Protonix) 40 mg PO [facility] Last Admin: 05/24/17 21:24 Dose: 40 mg [facility]) [facility] Admin: 05/25/17 08:25 Dose: 10 mg Senna (Senokot) 2 tab PO [facility] Last Admin: 05/24/17 21:24 Dose: 2 tab Sevelamer Carbonate (Renvela) 800 mg PO TIDCC [facility] Last Admin: 05/25/17 08:25 Dose: 800 mg Simvastatin (Zocor) 20 mg PO [facility] Last Admin: 05/24/17 21:24 Dose: 20 mg Sodium Chloride (Saline Flush) 10 ml IV Q8 [facility] Last Admin: 05/25/17 05:11 Dose: 10 ml Trazodone HCl (Desyrel) 250 mg PO [facility] Last Admin: 05/24/17 21:24 Dose: 250 mg Vitamin D (Vitamin D3) 1,000 unit PO DAILY [facility] Last Admin: 05/25/17 08:25 Dose: 1,000 unit Medical - PN: A/P - Time Spent With Patient Total time spent is greater than 50% in coordination of care (as documented) at patient's floor/unit and/or counseling patient: 15 - 24 minutes (1) Dyspnea Status: Acute Current Visit: No (2) Fluid overload Status: Acute Current Visit: No (3) Pain management Status: Acute Current Visit: No (4) Weakness Status: Acute Current Visit: No (5) Chronic kidney disease, stage IV (severe) Problem details: Most recent S.creatinine is 1.9 which to eGFR of 26ml/min, her renal function is stable and at baseline. She does have moderate proteinuria Etiology: likely related to obstructive uropathy Plan: Labs discussed with the patient Renal function stable and at baseline per review of records I have advised her to avoid NSAIDS, volume depletion I have educated her about the importance of HTN control to prevent the progression of renal disease She does have h/o renal osteodystrophy and I will obtain a PTH, phosphate and vitamin D level prior to next visit Status: Chronic Current Visit: No (6) Hypertension Status: Chronic Current Visit: No - Narrative A/P Narrative: #1. Ongoing weakness, after prolonged illness with volume overload and previous pneumonia. Patient will pursue both physical and occupational therapies, to try to get back to her baseline functional status. -She does seem to be improving on a daily basis. 2. Infectious disease. Patient continues to have an elevated white blood cell count although it is slowly trending downward again.. She looks well, and has no particular complaints. She does continue on oral and inhaled prednisone, so perhaps that is part of the issue. Chest x-ray findings continue to improve. However, she does still have a small pleural effusion. -Repeat chest x-ray. 3.. End stage renal disease on dialysis--HD T, , Sun. -The patient did tolerate daily dialysis over the last few days. She has tolerated slightly more volume being removed.. (Per Dr. Valentin: ESRD (end stage renal disease) on dialysis PUF today for 2.5 hrs with goal of 1.5-2l as tolerated with help of midodrine and mannitol to support if needed for hypotension I will ct to taper prednisone and maintain her on 5mg I will continue to cut back on dilaudid ) #4.. CAD--cont ASA/Plavix, simvastatin 20 QHS #5.. Fibromyalgia--occasionally uses po Dilaudid. Multiple opiate intolerances. Cont home fluoxetine #6.. B12 deficiency--h/o gastric bypass. Cont daily replacement #7.. DVT prophylaxis--heparin #6. CODE STATUS--DNR. Short-term intubation OK. AMILCAROA is her friend, Holli Rodriguez. #7. Right flank pain -Clinically, the patient is improving. Dr. Ricketts did not feel that there are signs of active infection. 8. Pulmonary. Patient has reported history of COPD, sleep apnea, pulmonary fibrosis. Resumed budesonide nebs. Scheduled duo nebs. Added as needed albuterol nebs. Medical - PN: Qual - Stroke Symptom Onset Unknown: No - VTE Deep Vein Thrombosis/Pulmonary Embolism Present on Admission: No
[2017-05-25] MEDS: traZODone HCL 50 MG TABLET PO SCH (20:46)
[2017-05-25] MEDS: SIMVASTATIN 20 MG TABLET PO SCH (20:46)
[2017-05-25] MEDS: PANTOPRAZOLE 40 MG TABLET PO SCH (20:46)
[2017-05-25] MEDS: SENNOSIDES 1 TABLET PO SCH (20:46)
[2017-05-26] MEDS: 0.9 % SODIUM CHLORIDE 10 ML SYRINGE IV SCH ×3 (05:16→21:18)
[2017-05-26] MEDS: MIDODRINE 5 MG TABLET PO SCH ×3 (08:15→16:56)
[2017-05-26] MEDS: predniSONE 20 MG TABLET PO SCH (08:15)
[2017-05-26] MEDS: SEVELAMER 800 MG TABLET PO SCH ×3 (08:15→21:18)
[2017-05-26] MEDS: CALCIUM ACETATE 667 MG CAPSULE PO SCH ×3 (08:15→21:18)
[2017-05-26] MEDS: ASPIRIN 81 MG TAB.CHEW PO SCH (08:27)
[2017-05-26] MEDS: CLOPIDOGREL 75 MG TABLET PO SCH (08:27)
[2017-05-26] MEDS: FLUoxetine HCL 20 MG CAPSULE PO SCH (08:27)
[2017-05-26] MEDS: HYDROmorphone 2 MG TABLET PO PRN (08:27)
[2017-05-26] MEDS: CYANOCOBALAMIN (VITAMIN B-12) 500 MCG TABLET PO SCH (08:28)
[2017-05-26] MEDS: VITAMIN D3 1,000 UNIT TABLET PO SCH (08:28)
[2017-05-26] MEDS: BUDESONIDE 0.5 MG/2 ML AMPUL.NEB NEB SCH ×2 (09:36→21:02)
[2017-05-26] MEDS: IPRATROPIUM/ALBUTEROL 3 ML AMPUL.NEB NEB SCH ×2 (09:36→21:02)
--- NOTE | 2017-05-26 09:47 | XRay Report ---
HISTORY: Reason for Exam:leukocytosis, f/u effusion. FINDINGS: There are horizontally oriented bands of discoid atelectasis at both lung bases, adjacent to the diaphragms. Very small right-sided pleural effusion is present. The discoid atelectasis in the left lower lobe has become worse since 05/22/17. There has been little change in the right side. The mid and upper lung mendez are clear. The heart size is within normal limits. IMPRESSION: Bibasilar atelectasis Interpreted and Authenticated by: Jose Rodriguez 05/26/17
[2017-05-26] MEDS: LIDOCAINE PATCH TOPICAL SCH (10:30)
[2017-05-26] MEDS: PANTOPRAZOLE 40 MG TABLET PO SCH (21:18)
[2017-05-26] MEDS: SIMVASTATIN 20 MG TABLET PO SCH (21:18)
[2017-05-26] MEDS: SENNOSIDES 1 TABLET PO SCH (21:18)
[2017-05-26] MEDS: traZODone HCL 50 MG TABLET PO SCH (22:37)
[2017-05-27] MEDS: HYDROmorphone 2 MG TABLET PO PRN (00:41)
[2017-05-27] MEDS: 0.9 % SODIUM CHLORIDE 10 ML SYRINGE IV SCH ×3 (04:59→21:40)
[2017-05-27] MEDS: CALCIUM ACETATE 667 MG CAPSULE PO SCH ×3 (08:37→17:36)
[2017-05-27] MEDS: FLUoxetine HCL 20 MG CAPSULE PO SCH (08:38)
[2017-05-27] MEDS: MIDODRINE 5 MG TABLET PO SCH ×3 (08:38→17:36)
[2017-05-27] MEDS: SEVELAMER 800 MG TABLET PO SCH ×3 (08:38→17:36)
[2017-05-27] MEDS: predniSONE 20 MG TABLET PO SCH (08:38)
[2017-05-27] MEDS: CLOPIDOGREL 75 MG TABLET PO SCH (08:38)
[2017-05-27] MEDS: ASPIRIN 81 MG TAB.CHEW PO SCH (08:38)
[2017-05-27] MEDS: VITAMIN D3 1,000 UNIT TABLET PO SCH (08:38)
[2017-05-27] MEDS: CYANOCOBALAMIN (VITAMIN B-12) 500 MCG TABLET PO SCH (08:38)
[2017-05-27] MEDS: IPRATROPIUM/ALBUTEROL 3 ML AMPUL.NEB NEB SCH ×2 (10:03→20:30)
[2017-05-27] MEDS: BUDESONIDE 0.5 MG/2 ML AMPUL.NEB NEB SCH ×2 (10:03→20:30)
[2017-05-27] MEDS: LIDOCAINE PATCH TOPICAL SCH (10:04)
[2017-05-27 11:26] LABS: Mean Cell Volume 106.9 fL (80.0-100.0); Mean Corpuscular HGB Conc 32.7 g/dL (31.0-36.0); Platelet Count 160 K/mcL (140-440); RBC 3.71 M/mcL (4.00-5.20); Red Cell Distribution Width 19.9 % (11.5-14.5)
[2017-05-27 11:46] LABS: ALT/SGPT 17 U/l (0-40); Albumin/Globulin Ratio 1.3 (1.0-2.3); Alkaline Phosphatase 107 U/L (39-117); Anisocytosis 1+ (NONE SEEN); Bilirubin,Direct < 0.2 mg/dL (0.0-0.3); Blood Urea Nitrogen 43 mg/dl (8-23); Eosinophils % (Manual) 1 % (0-7); Gamma Glutamyl Transpeptidase 25 U/L (5-36); Lymphocytes % 15 % (15-49); Macrocytosis 2+ (NONE SEEN); Magnesium 2.1 mg/dL (1.6-2.5); Monocytes % (Manual) 6 % (1-12); Platelet Estimate NORMAL (NORMAL); RBC Morphology ABNORM (NORMAL); Segmented Neutrophils % 78 % (38-78)
--- NOTE | 2017-05-27 13:40 | Internal Med Progress Note ---
Medical - PN: Subj Patient information: Note initiated : 05/27/17 at 1:39 pm Service Date, if different from initiated Date: [] Patient: Naz Joseph 71 y/o F admitted on 05/20/17 for Fascitis, Right Flank Pain. Chief Complaint: [] Interval history: May 21, 2017: History of present illness: Ms. Joseph is a 71 year old female who was admitted to [facility] on May 14 with fairly sudden, severe, right flank pain. Workup showed possible inflammation of the Camper's fascia, but surgical evaluation did not reveal any infection. Over the course of her stay it was realized that the patient had fairly diffuse edema including pericardial effusion and ascites and pleural effusions. She is a chronic dialysis patient, but she had not been tolerating removing enough fluid during dialysis to get her to her target dry weight. Occupational Work Experience Teacher then recommended daily dialysis with smaller volume removals, to see if her blood pressures would tolerate this. She has been getting daily dialysis for the last few days, with blood pressure support from midodrine. She has been tolerating this better. We are hoping that she can go back to dialysis just 3 days a week. The patient has noted dyspnea with exertion for some time now, but says that seems to be getting better over the last few days. She did have follow-up echocardiogram that did not show any enlargement of her pericardial effusion from the last check. -She continues to have occasional right flank pain of uncertain etiology. This is being managed with pain medications. -She does have known COPD, and is managed with bronchodilators and prednisone, and this seems to be fairly stable. -Today, patient is being admitted to swing bed status for continued rehab. She states she is feeling overall better. She tolerated walking with her walker better today and had much decreased shortness of breath. Her lower extremity edema is also improving, and she is pleased about that. She otherwise denies fever or chills, headaches or dizziness, new eye or ear symptoms, sore throat or cough, chest pain or palpitations, abdominal pain, nausea or vomiting, diarrhea or constipation. She has minimal urine output and is on chronic dialysis. She notes her breathing does seem quite a bit improved after each breathing treatment. May 23: Today, the patient notes she continues to make steady improvement. She is feeling stronger and is having less dyspnea with exertion. She feels the edema in her legs is finally noticeably less. Otherwise she denies fever chills, chest pain or shortness of breath, abdominal pain, nausea or vomiting, diarrhea or constipation. May 25: Today, the patient states she continues to do well. She continues to have very mild dyspnea with exertion, but no fever or chills. Her cough is almost completely gone. She remains afebrile. Blood pressures continue to have her just around 100 systolic. White blood cell count continues elevated, for uncertain reasons. They have not been back to normal since about May 19. Granulocyte count is very slowly trending downwards again. She otherwise denies headaches or dizziness, chest pain or palpitations, wheezing, abdominal pain, nausea or vomiting, diarrhea or constipation. May 27: The patient continues to do well clinically. Her strength is gradually improving, but she says she and physical therapy have decided she really is not quite strong enough to return home yet to her normal duties. Otherwise, she has less dyspnea with exertion. She denies fever or chills. She denies headache, sinus symptoms, sore throat earache or toothache, cough, GI or symptoms. - Constitutional Vitals: Vital Signs Temp Pulse Resp BP Pulse Ox 97 F 64 18 92/62 95 05/27/17 06:18 05/27/17 10:05 05/27/17 10:05 05/27/17 06:18 05/27/17 06:18 Period Temp Pulse Resp BP Sys/Millan Pulse Ox Last 24 Hr 97 F-98.1 F 64-68 16-20 90-92/52-62 95-95 Intake and Output 05/26/17 05/27/17 05/27/17 21:59 05:59 13:59 Weight 186 lb 8.177 oz Intake & Output: Intake & Output 05/26/17 05/27/17 05/27/17 21:59 05:59 13:59 Weight 186 lb 8.177 oz She looks well, and is sitting up in her chair as usual. She is in no acute distress. Medical - PN: Obj Da - Labs CBC & Chem 7: 05/27/17 10:49 05/27/17 10:49 Labs: Abnormal Lab Results 05/27/17 05/27/17 05/25/17 10:49 10:49 10:00 WBC 14.8 H 14.3 H RBC 3.71 L 3.66 L MCV 106.9 H 106.5 H MCH 35.0 H 34.9 H RDW 19.9 H 20.0 H MPV 11.5 H 11.1 H Lymph % (Auto) 12.5 L Gran # 11.1 H Kingfisher # (Auto) 1.2 H RBC Morphology Abnorm A Anisocytosis 1+ A Macrocytosis 2+ A Sodium 132 L Chloride 88 L Anion Gap 19.0 H BUN 43 H Creatinine 3.6 H Glucose 141 H Phosphorus 2.4 L May 26: Chest x-ray: Bibasilar atelectasis, slightly worse in the left lower lobe than on May 22. Mid and upper lung mendez are clear. May 22: Chest x-ray: Shows improving atelectasis in both lower lobes. Small right- sided pleural effusion. Overall improved aeration. May 21: CBC: White blood cell count 16,500, differential shows 13,500 neutrophils. May 20: Chest x-ray: IMPRESSION: Small region of densely consolidated atelectasis or infiltrate in the posterior medial left lower lobe - stable May 18: Echocardiogram: Is technically limited. Ejection fraction probably 60%. Probable left atrial enlargement. No definite free-flowing pericardial effusion is seen, but suboptimal study. May 17: Nasal MRSA screen is negative. May 16: D-dimer is elevated at 6.3 CT angiogram of the chest: IMPRESSION: No evidence of pulmonary embolus. Mild enlargement of the central pulmonary arteries suggesting pulmonary hypertension - this is a chronic finding. Moderate pericardial effusion with increased fluid density suggesting hemopericardium or, less likely, inflammation. This is progressed from the CT three months ago. Moderate atelectasis within the right middle lobe, lingula and both lower lobes as described. Moderate bilateral pleural effusions - all new. Mediastinal adenopathy new. Small amount of ascites - new. Etiology unknown May 14: -Nasal MRSA screen is negative. -Blood cultures are negative . -Chest x-ray:IMPRESSION: Small densely consolidated regions of atelectasis or infiltrate in both lower lobes with small effusions. -CT of the abdomen: IMPRESSION: Large amount of edema within Camper's fascia over the right flank - new from the comparison CT two months ago. This may be posttraumatic or inflammatory. Small hemopericardium - slightly improved from exam two months prior. Suspect is related to chronic renal disease. Moderate l eft and small right pleural effusions with moderate bibasilar airspace disease most likely atelectasis rather than infiltrate - new from prior study. Marked bilateral renal atrophy bilaterally end-stage renal failure. Multiple nonobstructing stones in the calyces of both kidneys. 3 cm benign adenoma left adrenal gland which demonstrates long-term stability. Small amount of free fluid in the deep true pelvis - increased from previous study. Small bowel resection changes in the left upper quadrant with primary anastomosis. 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 No change Meds: Medications Acetaminophen (Tylenol) 650 mg PO Q4-6HP PRN PRN Reason: PAIN/FEVER > 101 Albuterol Sulfate (Ventolin) 2.5 mg NEB Q2HP PRN PRN Reason: Shortness Of Breath Albuterol/Ipratropium (Duoneb) 3 ml NEB BID [facility] Last Admin: 05/27/17 10:03 Dose: 3 ml Aspirin (Aspirin) 81 mg PO DAILY [facility] Last Admin: 05/27/17 08:38 Dose: 81 mg Bisacodyl (Dulcolax) 10 mg ND Q2-3DAYS PRN PRN Reason: Constipation Budesonide (Pulmicort) 0.5 mg NEB Q12 [facility] Last Admin: 05/27/17 10:03 Dose: 0.5 mg Calcium Acetate (Phoslo) 667 mg PO TIDCC [facility] Last Admin: 05/27/17 13:09 Dose: 667 mg Clopidogrel Bisulfate (Plavix) 75 mg PO DAILY [facility] Last Admin: 05/27/17 08:38 Dose: 75 mg Cyanocobalamin (Vitamin B-12) 1,000 mcg PO DAILY [facility] Last Admin: 05/27/17 08:38 Dose: 1,000 mcg Fluoxetine HCl (Prozac) 40 mg PO DAILY [facility] Last Admin: 05/27/17 08:38 Dose: 40 mg Guaifenesin (Robitussin Dm) 10 ml PO Q4HP PRN PRN Reason: Cough Hydromorphone HCl (Dilaudid) 2 mg PO Q8HP PRN PRN Reason: PAIN LEVEL 3-6 Last Admin: 05/27/17 00:41 Dose: 2 mg Hydromorphone HCl (Dilaudid) 0.5 mg IV Q2HP PRN PRN Reason: PAIN LEVEL > 6 Lidocaine (Lidoderm) 1 patch TOPICAL DAILY@1000 [facility] Last Admin: 05/27/17 10:04 Dose: 1 patch Midodrine (Midodrine Hcl) 10 mg PO TID@0800,1200,1700 [facility] Last Admin: 05/27/17 13:09 Dose: 10 mg Ondansetron HCl (Zofran) 4 mg IV Q6HP PRN PRN Reason: Nausea And Vomiting Pantoprazole Sodium (Protonix) 40 mg PO [facility] Last Admin: 05/26/17 21:18 Dose: 40 mg [facility]one) [facility] Last Admin: 05/27/17 08:38 Dose: 10 mg Senna (Senokot) 2 tab PO [facility] Last Admin: 05/26/17 21:18 Dose: 2 tab Sevelamer Carbonate (Renvela) 800 mg PO TIDCC [facility] Last Admin: 05/27/17 13:09 Dose: 800 mg Simvastatin (Zocor) 20 mg PO [facility] Last Admin: 05/26/17 21:18 Dose: 20 mg Sodium Chloride (Saline Flush) 10 ml IV Q8 [facility] Last Admin: 05/27/17 13:05 Dose: Not Given Trazodone HCl (Desyrel) 250 mg PO [facility] Last Admin: 05/26/17 22:37 Dose: 250 mg Vitamin D (Vitamin D3) 1,000 unit PO DAILY [facility] Last Admin: 05/27/17 08:38 Dose: 1,000 unit Medical - PN: A/P - Time Spent With Patient Total time spent is greater than 50% in coordination of care (as documented) at patient's floor/unit and/or counseling patient: 15 - 24 minutes (1) Dyspnea Status: Acute Current Visit: No (2) Fluid overload Status: Acute Current Visit: No (3) Pain management Status: Acute Current Visit: No (4) Weakness Status: Acute Current Visit: No (5) Chronic kidney disease, stage IV (severe) Problem details: Most recent S.creatinine is 1.9 which to eGFR of 26ml/min, her renal function is stable and at baseline. She does have moderate proteinuria Etiology: likely related to obstructive uropathy Plan: Labs discussed with the patient Renal function stable and at baseline per review of records I have advised her to avoid NSAIDS, volume depletion I have educated her about the importance of HTN control to prevent the progression of renal disease She does have h/o renal osteodystrophy and I will obtain a PTH, phosphate and vitamin D level prior to next visit Status: Chronic Current Visit: No (6) Hypertension Status: Chronic Current Visit: No - Narrative A/P Narrative: #1. Ongoing weakness, after prolonged illness with volume overload and previous pneumonia. Patient will pursue both physical and occupational therapies, to try to get back to her baseline functional status. -She does seem to be improving on a daily basis. However, she and the therapist are not quite sure that she is strong enough to return home and resume her normal duties. We will readdress this tomorrow. 2. Infectious disease. Patient continues to have an elevated white blood cell count which was trending down, but is not trending up again.. She looks well, and has no particular complaints. She does continue on oral and inhaled prednisone. Chest x-ray does not show pneumonia or significant effusion, but does show slightly worsening atelectasis. Then we may need to be more aggressive with having her do incentive spirometry every hour. 3.. End stage renal disease on dialysis--HD T, , Sat. -The patient did tolerate daily dialysis over the last few days. She has tolerated slightly more volume being removed.. (Per Dr. Valentin: ESRD (end stage renal disease) on dialysis PUF today for 2.5 hrs with goal of 1.5-2l as tolerated with help of midodrine and mannitol to support if needed for hypotension I will ct to taper prednisone and maintain her on 5mg I will continue to cut back on dilaudid ) #4.. CAD--cont ASA/Plavix, simvastatin 20 QHS #5.. Fibromyalgia--occasionally uses po Dilaudid. Multiple opiate intolerances. Cont home fluoxetine #6.. B12 deficiency--h/o gastric bypass. Cont daily replacement #7.. DVT prophylaxis--heparin #6. CODE STATUS--DNR. Short-term intubation OK. HCPOA is her friend, Holli Rodriguez. #7. Right flank pain -Clinically, the patient improved.. Dr. Ricketts did not feel that there are signs of active infection. 8. Pulmonary. Patient has reported history of COPD, sleep apnea, pulmonary fibrosis. Resumed budesonide nebs. Scheduled duo nebs. Added as needed albuterol nebs. Medical - PN: Qual - Stroke Symptom Onset Unknown: No - VTE Deep Vein Thrombosis/Pulmonary Embolism Present on Admission: No
[2017-05-27] MEDS: PANTOPRAZOLE 40 MG TABLET PO SCH (21:40)
[2017-05-27] MEDS: traZODone HCL 50 MG TABLET PO SCH (21:40)
[2017-05-27] MEDS: SIMVASTATIN 20 MG TABLET PO SCH (21:40)
[2017-05-27] MEDS: SENNOSIDES 1 TABLET PO SCH (21:40)
[2017-05-28] MEDS: HYDROmorphone 2 MG TABLET PO PRN (02:39)
[2017-05-28 05:54] LABS: Basophils # (Auto) 0.1 K/mcL (0.0-0.3); Basophils % (Auto) 0.5 % (0.0-2.0); Eosinophils # (Auto) 0.2 K/mcL (0.0-0.7); Eosinophils % (Auto) 1.4 % (0.0-7.0); Granulocytes % (Auto) 75.2 % (38.0-78.0); Lymphocytes # (Auto) 1.7 K/mcL (1.5-4.8); Lymphocytes % (Auto) 13.7 % (15.5-49.0); Mean Cell Volume 106.5 fL (80.0-100.0); Mean Corpuscular HGB Conc 32.9 g/dL (31.0-36.0); Monocytes # (Auto) 1.2 K/mcL (0.1-0.9); Monocytes % (Auto) 9.2 % (1.0-12.0); Platelet Count 151 K/mcL (140-440); RBC 3.65 M/mcL (4.00-5.20); Red Cell Distribution Width 19.9 % (11.5-14.5)
[2017-05-28] MEDS: 0.9 % SODIUM CHLORIDE 10 ML SYRINGE IV SCH (07:54)
[2017-05-28] MEDS: IPRATROPIUM/ALBUTEROL 3 ML AMPUL.NEB NEB SCH (08:27)
[2017-05-28] MEDS: BUDESONIDE 0.5 MG/2 ML AMPUL.NEB NEB SCH (08:28)
[2017-05-28] MEDS: CLOPIDOGREL 75 MG TABLET PO SCH (08:56)
[2017-05-28] MEDS: predniSONE 20 MG TABLET PO SCH (08:56)
[2017-05-28] MEDS: SEVELAMER 800 MG TABLET PO SCH ×2 (08:56→13:31)
[2017-05-28] MEDS: ASPIRIN 81 MG TAB.CHEW PO SCH (08:56)
[2017-05-28] MEDS: CALCIUM ACETATE 667 MG CAPSULE PO SCH ×2 (08:56→13:31)
[2017-05-28] MEDS: MIDODRINE 5 MG TABLET PO SCH ×2 (08:56→13:31)
[2017-05-28] MEDS: CYANOCOBALAMIN (VITAMIN B-12) 500 MCG TABLET PO SCH (08:57)
[2017-05-28] MEDS: VITAMIN D3 1,000 UNIT TABLET PO SCH (08:57)
[2017-05-28] MEDS: FLUoxetine HCL 20 MG CAPSULE PO SCH (08:57)
[2017-05-28] MEDS: LIDOCAINE PATCH TOPICAL SCH (08:57)
--- NOTE | 2017-05-28 10:34 | Discharge Summary ---
Medical - DS: Prov Patient information: Note initiated : 05/28/17 at 10:27 am Service Date, if different from initiated Date: [] Patient: Naz Joseph 71 y/o F admitted on 05/20/17 for Fascitis, Right Flank Pain. Chief Complaint: [] Date of admission: 05/20/17 21:15 Discharge date: 05/28/17 Primary care physician: Maribel Jaimes Admitting clinician: Cherie Leavitt Consults: 05/20/17 21:31 Consult to Physician [CONS] Routine Comment: Consulting Provider: Carla Valentin Reason For Exam: Physician to Consult Attending physician on discharge: Cherie Leavitt Medical - DS: Meds - Discharge Medications Prescriptions: HYDROmorphone HCL [Dilaudid] 2 mg PO Q8HP PRN #30 tab PRN Reason: Pain Active and Home Medications: Discharge medications: Duo nebs 3 mL twice daily Aspirin 81 mg daily Budesonide nebs every 12 hours Calcium acetate 667 mg p.o. 3 times daily with meals Plavix 75 mg daily B12 1000 mcg daily Prozac 40 mg p.o. daily Midodrine 1 tab at 08 100 1217 100 Protonix 40 mg p.o. nightly Prednisone 10 mg daily, to be tapered by Dr. Homero Nielsen 2 tabs p.o. nightly Sevelamer 800 mg p.o. 3 times daily with meals Simvastatin 20 mg p.o. nightly Trazodone 250 mg p.o. nightly Vitamin D 1000 units p.o. daily Lidoderm 1 patch topically every morning, remove 12 hours later, as needed Guaifenesin 10 mL p.o. every 4 hours as needed cough Dilaudid 2 mg every 8 hours as needed uncontrolled pain Zofran 4 mg sublingual every 4 hours as needed Dulcolax suppository every 2-3 days as needed Albuterol nebs 2.5 mg every 2 hours as needed shortness of breath Tylenol 650 mg p.o. every 6 hours as needed Suvorexant 10 mg nightly as needed insomnia Previous [facility] Medications acetaminophen 500 mg tablet 1,000 mg PO Q6H PRN tab 12/03/14 [History Confirmed 05/20/17 Last Taken 04/19/17 08:00] cholecalciferol (vitamin D3) 1,000 unit capsule 1,000 unit PO QDAY cap [History Confirmed 05/20/17 Last Taken 05/20/17] cyanocobalamin (vit B-12) ER 1,000 mcg tablet,extended release 1,000 mcg PO QDAY tab 12/03/14 [History Confirmed 05/20/17 Last Taken 05/14/17 08:00] sevelamer carbonate 800 mg tablet 800 mg PO TIDAC 06/01/15 [History Confirmed Last Taken 05/20/17 17:00] calcium acetate 667 mg capsule 667 mg PO TIDCC 30 Days #60 cap 09/09/15 [ History Confirmed 05/20/17 Last Taken 05/20/17 18:00] fluoxetine 40 mg capsule 40 mg PO QDAY #90 cap 09/09/15 [Rx Confirmed 05/20/17 Last Taken 05/20/17 09:00] simvastatin 20 mg tablet 20 mg PO HS 05/17/16 [History Confirmed 05/20/17 Last Taken 05/19/17 21:00] trazodone 100 mg tablet 250 mg PO QHS 90 Days #225 tab 09/11/16 [Rx Confirmed Last Taken 05/19/17] Clopidogrel Bisulfate [Plavix] 75 mg PO DAILY 04/13/17 [History Confirmed Last Taken 05/20/17 09:00] Budesonide [Pulmicort] 0.5 mg NEB Q12 ampul.neb 04/20/17 [Rx Confirmed Last Taken 05/20/17 09:00] Ipratropium/Albuterol [Duoneb] 3 ml NEB Q6H #1 ampul.neb 04/20/17 [Rx Confirmed 05/20/17 Last Taken 05/14/17 08:00] Pantoprazole [Protonix] 40 mg PO QHS #1 tab 04/20/17 [Rx Confirmed 05/20/17 Last Taken 05/19/17 21:00] guaiFENesin/DEXTROMETHORPHAN [Robitussin Dm] 10 ml PO Q4HP PRN ml 04/20/17 [Rx Confirmed 05/20/17 Last Taken 05/11/17 08:00] suvorexant 10 mg tablet 10 mg PO HS PRN #30 tab 04/24/17 [Rx Confirmed 05/20/17 Last Taken Unknown] HYDROmorphone HCL [Dilaudid] 2 mg PO Q8HP PRN #40 tab 04/27/17 [Rx Confirmed 09/01 Last Taken 05/14/17 12:00] 0.9 % Sodium Chloride [Saline Flush] 10 ml IV Q8 syringe 05/20/17 [Rx Confirmed 05/20/17 Last Taken 05/20/17] Albuterol Sulfate [Ventolin] 2.5 mg NEB Q2HP PRN ampul.neb 05/20/17 [Rx Confirmed 05/20/17 Last Taken 05/13/17] Aspirin 81 mg PO DAILY tab.chew 05/20/17 [Rx Confirmed 05/20/17 Last Taken 09/01 09:00] Bisacodyl [Dulcolax] 10 mg VT Q2-3DAYS PRN supp.rect 05/20/17 [Rx Confirmed 09/01 Last Taken Unknown] Cyanocobalamin (Vitamin B-12) [Vitamin B-12] 1,000 mcg PO DAILY tablet [Rx Confirmed 05/20/17 Last Taken 05/20/17 09:00] HYDROmorphone [Dilaudid] 1 mg IV Q2HP PRN syringe 05/20/17 [Rx Confirmed Last Taken 05/20/17 11:00] Ipratropium/Albuterol [Duoneb] 3 ml NEB BID ampul.neb 05/20/17 [Rx Confirmed Last Taken 05/14/17] Lidocaine [Lidoderm] 0 patch TOPICAL DAILY patch 05/20/17 [Rx Confirmed Last Taken 05/20/17] Midodrine [Midodrine HCl] 10 mg PO TID@0800,1200,1700 tablet 05/20/17 [Rx Confirmed 05/20/17 Last Taken 05/20/17 17:00] Ondansetron [Zofran] 4 mg IV Q6HP PRN vial 05/20/17 [Rx Confirmed 05/20/17 Last Taken Unknown] Sennosides [Senokot] 2 tab PO HS tablet 05/20/17 [Rx Confirmed 05/20/17 Last Taken 12/02/17 21:00] predniSONE [Prednisone] [facility] [place] 05/20/17 [Rx Confirmed 05/20/17 Last Taken Unknown] ? Previously treated with estradiol 0.5 mg daily, I believe this is been discontinued Medical - DS: Hosp Hospital course: Mr. Joseph is a 71 year old F May 21, 2017: History of present illness: Ms. Joseph is a 71 year old female who was admitted to [facility] on May 14 with fairly sudden, severe, right flank pain. Workup showed possible inflammation of the Camper's fascia, but surgical evaluation did not reveal any infection. Over the course of her stay it was realized that the patient had fairly diffuse edema including pericardial effusion and ascites and pleural effusions. She is a chronic dialysis patient, but she had not been tolerating removing enough fluid during dialysis to get her to her target dry weight. [facility] Erector then recommended daily dialysis with smaller volume removals, to see if her blood pressures would tolerate this. She has been getting daily dialysis for the last few days, with blood pressure support from midodrine. She has been tolerating this better. We are hoping that she can go back to dialysis just 3 days a week. The patient has noted dyspnea with exertion for some time now, but says that seems to be getting better over the last few days. She did have follow-up echocardiogram that did not show any enlargement of her pericardial effusion from the last check. -She continues to have occasional right flank pain of uncertain etiology. This is being managed with pain medications. -She does have known COPD, and is managed with bronchodilators and prednisone, and this seems to be fairly stable. -Today, patient is being admitted to swing bed status for continued rehab. She states she is feeling overall better. She tolerated walking with her walker better today and had much decreased shortness of breath. Her lower extremity edema is also improving, and she is pleased about that. She otherwise denies fever or chills, headaches or dizziness, new eye or ear symptoms, sore throat or cough, chest pain or palpitations, abdominal pain, nausea or vomiting, diarrhea or constipation. She has minimal urine output and is on chronic dialysis. She notes her breathing does seem quite a bit improved after each breathing treatment. May 23: Today, the patient notes she continues to make steady improvement. She is feeling stronger and is having less dyspnea with exertion. She feels the edema in her legs is finally noticeably less. Otherwise she denies fever chills, chest pain or shortness of breath, abdominal pain, nausea or vomiting, diarrhea or constipation. May 25: Today, the patient states she continues to do well. She continues to have very mild dyspnea with exertion, but no fever or chills. Her cough is almost completely gone. She remains afebrile. Blood pressures continue to have her just around 100 systolic. White blood cell count continues elevated, for uncertain reasons. They have not been back to normal since about May 19. Granulocyte count is very slowly trending downwards again. She otherwise denies headaches or dizziness, chest pain or palpitations, wheezing, abdominal pain, nausea or vomiting, diarrhea or constipation. May 27: The patient continues to do well clinically. Her strength is gradually improving, but she says she and physical therapy have decided she really is not quite strong enough to return home yet to her normal duties. Otherwise, she has less dyspnea with exertion. She denies fever or chills. She denies headache, sinus symptoms, sore throat earache or toothache, cough, GI or symptoms. May 28: Hospital course: -The patient has been getting rehabilitation while in swing bed status. She continues to get dialysis as well, working towards her ideal dry weight. She is making slow but steady progress. We had hoped to discharge her to home, but she in physical therapy think that she is still not quite strong enough to perform her usual chores at home, so she will be sent back to rehab for ongoing strengthening. -her white blood cell counts have intermittently been elevated while here, she has had extensive workup, without clear cause at this time. This is a bit improved today. Chest x-ray yesterday just showed a little worsening of her atelectasis, so we are being more aggressive now with her incentive spirometry, asking her to do this every hour while awake. -She is continued with 3 days a week dialysis, and weight is slowly coming down. On May 18 she weighed approximately 225 pounds. She is now reportedly down to 186 pounds. On exam, she is sitting up in her chair. She is in no acute distress. Neck is supple without lymphadenopathy or JVD. Cardiac exam shows regular rate and rhythm. Lungs there are just a few crackles at the right base, and otherwise lungs are clear. Abdomen is soft and nontender. Extremities: Show 1-2+ edema, improving. A/P Narrative: #1. Ongoing weakness, after prolonged illness with volume overload and previous pneumonia. Patient will pursue both physical and occupational therapies, to try to get back to her baseline functional status. -She does seem to be improving on a daily basis. Continue with physical therapy and occupational therapies, working towards her goal of being back to baseline strength. 2. Infectious disease. Patient continues to have an elevated white blood cell count although it is slowly trending downward again.. She looks well, and has no particular complaints. She does continue on oral and inhaled prednisone, so perhaps that is part of the issue. Chest x-ray findings continue to improve. However, she does still have ongoing atelectasis. -We have encouraged her to be more aggressive with hourly incentive spirometry. She needs to get up and walk around more as well. She is off antibiotics, and remains afebrile. . 3.. End stage renal disease on dialysis--HD T, , Sat. -The patient did tolerate daily dialysis over the last few days. She has tolerated slightly more volume being removed.. (Per Dr. Valentin: ESRD (end stage renal disease) on dialysis PUF today for 2.5 hrs with goal of 1.5-2l as tolerated with help of midodrine and mannitol to support if needed for hypotension I will ct to taper prednisone and maintain her on 5mg I will continue to cut back on dilaudid ) #4.. CAD--cont ASA/Plavix, simvastatin 20 QHS #5.. Fibromyalgia--occasionally uses po Dilaudid. Multiple opiate intolerances. Cont home fluoxetine #6.. B12 deficiency--h/o gastric bypass. Cont daily replacement #7.. DVT prophylaxis--Plavix and aspirin. Daily ambulation. #6. CODE STATUS--DNR. Short-term intubation OK. HCPOA is her friend, Holli Rodriguez. #7. Right flank pain -Clinically, the patient appears to have resolved.. Dr. Ricketts did not feel that there were signs of active infection. 8. Pulmonary. Patient has reported history of COPD, sleep apnea, pulmonary fibrosis. Resumed budesonide nebs. Scheduled duo nebs. Added as needed albuterol nebs. She seems to be doing well from a pulmonary status. Discharge diagnosis: Fatigue. COPD. Atelectasis. CKD. Leukocytosis. - Time Spent with Patient Total time spent providing and/or coordinating discharge services: Greater than 30 minutes Medical - DS: Exam - Constitutional Vitals: Vital Signs Temp Pulse Pulse Resp BP Pulse Ox 05/28/17 08:43 98 05/28/17 08:41 68 16 05/28/17 06:17 96.8 F L 18 110/72 94 05/27/17 20:37 61 18 05/27/17 20:30 98 05/27/17 20:00 97.0 F 63 16 114/72 95 Intake and Output 05/27/17 05/28/17 05/28/17 21:59 05:59 13:59 Intake Total 720 / 720 300 / 300 Balance 720 / 720 300 / 300 Intake: Oral 720 / 720 300 / 300 Other: Meal Dinner Percent of Meal Consumed 90% # Bowel Movements 1 Weight 188 lb Medical - DS: Data Labs on day of discharge: Labs from last 24 hours 05/28/17 05/27/17 05/27/17 04:25 10:49 10:49 WBC 12.7 H 14.8 H RBC 3.65 L 3.71 L Hgb 12.8 13.0 Hct 38.9 39.7 MCV 106.5 H 106.9 H MCH 35.0 H 35.0 H MCHC 32.9 32.7 RDW 19.9 H 19.9 H Plt Count 151 160 MPV 11.9 H 11.5 H Gran % 75.2 Lymph % (Auto) 13.7 L [place] % (Auto) 9.2 Eos % (Auto) 1.4 Baso % (Auto) 0.5 Gran # 9.5 H Lymph # (Auto) 1.7 [place] # (Auto) 1.2 H Eos # (Auto) 0.2 Baso # (Auto) 0.1 Total Counted 100 Seg Neutrophils % 78 Band Neutrophils % Not Reportable Lymphocytes % 15 Monocytes % (Manual) 6 Eosinophils % (Manual) 1 Platelet Estimate Normal RBC Morphology Abnorm A Anisocytosis 1+ A Macrocytosis 2+ A Sodium 132 L Potassium 4.2 Chloride 88 L Carbon Dioxide 25 Anion Gap 19.0 H BUN 43 H Creatinine 3.6 H GFR Calculation 12 Glucose 141 H Uric Acid 4.0 Calcium 9.7 Phosphorus 2.4 L Magnesium 2.1 Total Bilirubin 0.4 Direct Bilirubin < 0.2 GGT 25 AST 15 ALT 17 Alkaline Phosphatase 107 Lactate Dehydrogenase 166 Total Protein 7.0 Albumin 4.0 Globulin 3.0 Albumin/Globulin Ratio 1.3 Triglycerides 99 May 26: Chest x-ray: Bibasilar atelectasis, slightly worse in the left lower lobe than on May 22. Mid and upper lung mendez are clear. May 22: Chest x-ray: Shows improving atelectasis in both lower lobes. Small right- sided pleural effusion. Overall improved aeration. May 21: CBC: White blood cell count 16,500, differential shows 13,500 neutrophils. May 20: Chest x-ray: IMPRESSION: Small region of densely consolidated atelectasis or infiltrate in the posterior medial left lower lobe - stable May 18: Echocardiogram: Is technically limited. Ejection fraction probably 60%. Probable left atrial enlargement. No definite free-flowing pericardial effusion is seen, but suboptimal study. May 17: Nasal MRSA screen is negative. May 16: D-dimer is elevated at 6.3 CT angiogram of the chest: IMPRESSION: No evidence of pulmonary embolus. Mild enlargement of the central pulmonary arteries suggesting pulmonary hypertension - this is a chronic finding. Moderate pericardial effusion with increased fluid density suggesting hemopericardium or, less likely, inflammation. This is progressed from the CT three months ago. Moderate atelectasis within the right middle lobe, lingula and both lower lobes as described. Moderate bilateral pleural effusions - all new. Mediastinal adenopathy new. Small amount of ascites - new. Etiology unknown May 14: -Nasal MRSA screen is negative. -Blood cultures are negative . -Chest x-ray:IMPRESSION: Small densely consolidated regions of atelectasis or infiltrate in both lower lobes with small effusions. -CT of the abdomen: IMPRESSION: Large amount of edema within Camper's fascia over the right flank - new from the comparison CT two months ago. This may be posttraumatic or inflammatory. Small hemopericardium - slightly improved from exam two months prior. Suspect is related to chronic renal disease. Moderate l eft and small right pleural effusions with moderate bibasilar airspace disease most likely atelectasis rather than infiltrate - new from prior study. Marked bilateral renal atrophy bilaterally end-stage renal failure. Multiple nonobstructing stones in the calyces of both kidneys. 3 cm benign adenoma left adrenal gland which demonstrates long-term stability. Small amount of free fluid in the deep true pelvis - increased from previous study. Small bowel resection changes in the left upper quadrant with primary anastomosis. 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 No change Medical - DS: A/P - Patient/Caregiver Discharge Instructions Activity: as per physical therapy Diet: Renal Prescriptions: HYDROmorphone HCL [Dilaudid] 2 mg PO Q8HP PRN #30 tab PRN Reason: Pain Other Amb Orders: Aspiration Precautions Location: Determined By Patient Fall Risk Location: Determined By Patient OT Discharge Order Location: Determined By Patient Physical Therapy at Discharge - General Location: Determined By Patient Basic Metabolic Panel Time Frame: 2 Days, Location: Determined By Patient Complete Blood Count Time Frame: 2 Days, Location: Determined By Patient - Problem Maintenance (1) Dyspnea Status: Acute Qualifiers: Dyspnea type: shortness of breath Qualified Code(s): R06.02 - Shortness of breath (2) Fluid overload Status: Acute (3) Pain management Status: Acute (4) Weakness Status: Acute (5) Chronic kidney disease, stage IV (severe) Status: Chronic Comment: Most recent S.creatinine is 1.9 which to eGFR of 26ml /min, her renal function is stable and at baseline. She does have moderate proteinuria Etiology: likely related to obstructive uropathy Plan: Labs discussed with the patient Renal function stable and at baseline per review of records I have advised her to avoid NSAIDS, volume depletion I have educated her about the importance of HTN control to prevent the progression of renal disease She does have h/o renal osteodystrophy and I will obtain a PTH, phosphate and vitamin D level prior to next visit (6) Hypertension Status: Chronic - Follow up Plan Follow up with: Marta Hurst ARNP [Nurse Practitioner] - 05/30/17 8:30 am (check in at 8:20 am.) Disposition: Xfer SNF Prognosis: Good Rehab Potential: Good I certify that the patient requires SNF services: Yes Overall status at discharge: patient is progressing back to baseline Medical - DS: Qual - VTE Deep Vein Thrombosis/Pulmonary Embolism Present on Admission: No
== END 2017-05-28 13:45 | DRG 640 ==
LOC: ICU 17:12 → MEDSUR 05-24 14:20
PROVIDERS: ADMIT Internal Medicine; ATTEND Internal Medicine

== ENCOUNTER 2017-09-08 12:09 | Inpatient (IN) ==
[2017-09-08] MEDS ORDERED: IOPAMIDOL 100 ML BOTTLE IV ONE (12:10)
[2017-09-08] MEDS ORDERED: 0.9 % SODIUM CHLORIDE 2,000 ML IV ONE (12:44)
[2017-09-08] MEDS ORDERED: ONDANSETRON 4 MG/2 ML VIAL IV ONE (12:44)
--- NOTE | 2017-09-08 13:55 | Cat Scan Report ---
CLINICAL INFORMATION: Hypotension COMPARISON: Brain CT scans dated 08/08/2017, 08/06/2017, 10/27/2016 TECHNIQUE: Axial noncontrast-enhanced images through the brain. FINDINGS: No acute intracranial hemorrhage. No subdural hematoma. No subarachnoid hemorrhage. Basilar cisterns are normal. No intra-axial hemorrhage. No focal intra-axial attenuation abnormalities or localized mass effect. No midline shift. No acute hydrocephalus. There are calcifications within the cerebellum. These are unchanged. Appearance is benign. Brainstem is negative. No calvarial fracture. No lytic lesion. Temporal bones are negative. IMPRESSION: 1. No acute abnormality. No intracranial hemorrhage or detectable nonhemorrhagic infarction 2. Benign stable a small calcifications within the cerebellum The exam was performed using radiation dose optimization techniques including, but not limited to, automated exposure control, adjustment of the mA and/or kV according to patient size and use of iterative reconstruction technique. Interpreted and Authenticated by: Fortino Hernandez 09/08/17
--- NOTE | 2017-09-08 14:00 | XRay Report ---
CLINICAL INFORMATION: Nausea and vomiting TECHNIQUE: Supine and upright abdomen COMPARISON: Plain film examinations dated 05/15/2016 and 11/09/2015 FINDINGS: There are sutures in the left side of the abdomen secondary to previous surgical procedure or procedures. There is gas in the upper abdomen. This is at least partially gastric. There is gas-filled distended bowel in the right upper quadrant which may be duodenal. There is very little colonic gas. No mechanical small bowel obstruction is likely. This may be proximal. Follow-up radiographs or CT scan recommended. No pneumoperitoneum. No biliary or portal venous gas. No pneumatosis. There are multiple small calcifications consistent with renal calculi. IMPRESSION: 1. Abnormal bowel gas pattern with prominent stomach and intraluminal gas in the right upper quadrant which may be duodenal. 2. Very little colonic gas and fecal material 3. Bowel obstruction is possible. Follow-up radiographs or CT scan recommended 4. Calcifications consistent with renal calculi Interpreted and Authenticated by: Fortino Hernandez 09/08/17
[2017-09-08 14:05] LABS: ALT/SGPT 10 U/l (0-40); Albumin 3.6 gm/dL (3.2-5.2); Albumin/Globulin Ratio 1.3 (1.0-2.3); Alkaline Phosphatase 73 U/L (39-117); Amylase 27 U/L (28-100); Blood Urea Nitrogen 18 mg/dl (8-23); Lipase 13 U/L (7-60)
[2017-09-08] MEDS ORDERED: POTASSIUM CHLORIDE 20 MEQ in DEXTROSE 5% IN WATER 250 ML IV ONE (14:10)
[2017-09-08 14:16] LABS: Basophils # (Auto) 0 K/mcL (0.0-0.3); Basophils % (Auto) 0.2 % (0.0-2.0); Eosinophils # (Auto) 0.3 K/mcL (0.0-0.7); Eosinophils % (Auto) 2.8 % (0.0-7.0); Granulocytes % (Auto) 68.6 % (38.0-78.0); Lymphocytes # (Auto) 1.9 K/mcL (1.5-4.8); Mean Cell Volume 113.8 fL (80.0-100.0); Mean Corpuscular HGB Conc 33.2 g/dL (31.0-36.0); Mean Corpuscular Hemoglobin 37.8 pg (26.0-34.0); Monocytes # (Auto) 0.7 K/mcL (0.1-0.9); Monocytes % (Auto) 7.4 % (1.0-12.0); Platelet Count 155 K/mcL (140-440); RBC 3.41 M/mcL (4.00-5.20); Red Cell Distribution Width 19.2 % (11.5-14.5)
--- NOTE | 2017-09-08 15:39 | Nephrology Consult Note ---
History of Present Illness - Reason for Consult Patient information: Note initiated : 09/08/17 at 3:36 pm Patient: Naz Joseph is an [id number] female presented to ED. Chief Complaint: Nausea Consult date: 09/08/17 end stage renal disease, hypokalemia Requesting physician: Reuben Pimentel - Chief Complaint Nausea - History of Present Illness Naz Joseph is an [id number] female with end stage renal disease on chronic hemodialysis (through left arm AV fistula, at [facility], on TTS, followed by Dr Valentin), chronic anemia due to chronic kidney disease, secondary hyperparathyroidism, history of gout, coronary artery disease, presented for her scheduled dialysis on 09/08/17. She was hypotensive (71/54) despite 2 doses of Midodrine at home on arrival to dialysis unit and sent to ED. Review of Systems Constitutional: anorexia, weakness Nose, mouth and throat: no nasal congestion, no sore throat Cardiovascular: no chest pain, no palpatations Respiratory: no cough, no hemoptysis Gastrointestinal: abdominal pain, nausea Genitourinary: no dysuria, no hematuria Musculoskeletal: arthralgias, no neck pain Integumentary: wounds Neurological: no focal weakness Psychiatric: no anxiety Endocrine: no cold intolerance, no heat intolerance Allergic/Immunologic: no tongue swelling, no uticaria Past History Past medical history: Medical History (Last Reviewed 09/03/17 @ 12:11 by Alfredo Whalen PA-C) Aspiration into airway (Chronic) Pulmonary fibrosis (Chronic) Aortic valve sclerosis (Chronic) Fatigue (Acute) Weakness (Acute) Dyspnea (Acute) COPD (chronic obstructive pulmonary disease) (Chronic) Cough (Chronic) Obstructive sleep apnea (Chronic) Fracture, femur neck (Resolved 09/24/15) Hematoma and contusion (Resolved) Muscle cramps (Resolved) Cyst of Bartholin's gland duct (Resolved) Hemorrhage of arteriovenous fistula (Resolved) Hematoma (Chronic) Pericarditis (Chronic) Hypertension (Chronic) Chest pain (Chronic) Coronary artery disease involving false pass coronary artery (Chronic) Dependence on renal dialysis (Chronic) End stage renal disease (Chronic) History of echocardiogram (Chronic 06/04/15) Pericardial effusion (Chronic) Insomnia (Chronic) Vitamin B 12 deficiency (Chronic) Venous insufficiency (Chronic 01/13/14) UTI (urinary tract infection) (Chronic) Tobacco use (Resolved) Secondary hyperparathyroidism (Chronic 08/08/13) Rotator cuff tear (Chronic 04/09/14) Rotator cuff arthropathy (Chronic 04/09/14) Renal insufficiency (Chronic 11/03/14) Renal failure (Chronic) Proteinuria (Chronic 07/14/13) Osteoporosis (Chronic) Osteoarthritis (Chronic 10/07/04) Obstructive uropathy (Chronic 11/10/14) Nephrolithiasis (Chronic 07/14/13) Systolic murmur (Chronic) Migraine (Chronic) Metabolic acidosis (Chronic 07/14/13) Joint pain (Chronic) Impaired fasting glucose (Chronic) Hypertensive renal disease (Chronic 07/14/13) Hypertension, essential (Chronic) Hemorrhoids, internal (Chronic 11/03/13) Gout (Chronic 07/14/13) Fibromyalgia (Chronic) Edema (Chronic 11/19/14) Diarrhea (Chronic) Depression (Chronic) Degenerative arthritis (Chronic) Deep vein thrombosis (Chronic) Chronic kidney disease, stage IV (severe) (Chronic 07/14/13) Carpal tunnel syndrome (Chronic) Bone spur (Chronic 11/12/02) Anxiety (Chronic) Blood clot associated with vein wall inflammation (Resolved) Fecal incontinence (Resolved 09/19/13) Tendonitis (Resolved 09/08/12) Past surgical history: Past Surgical History (Last Reviewed 09/03/17 @ 12:11 by Alfredo Whalen PA-C) Arteriovenous fistula, acquired (Chronic) History of bariatric surgery (Chronic) History of resection of small bowel (Chronic 03/23/15) History of lithotripsy (Acute 09/21/15) History of gastrointestinal surgery (Chronic) History of rectal surgery (Chronic) History of surgery (Chronic) Hx of appendectomy (Chronic) Hx of cataract surgery (Chronic) Hx of shoulder surgery (Chronic) Hx of tonsillectomy (Chronic) S/P JOSE-BSO (Chronic) S/P nerve repair (Chronic) History of abdominal surgery (Resolved 11/03/14) History of adenoidectomy (Resolved) History of cataract surgery (Resolved) History of colonoscopy (Resolved 11/03/13) History of cystoscopy (Resolved 04/20/11) History of hammer toe correction (Resolved) History of hemorrhoidectomy (Resolved) History of hysterectomy (Resolved) History of intravenous pyelogram (Resolved 05/19/11) History of lithotripsy (Resolved 01/12/09) History of oophorectomy (Resolved) History of tonsillectomy (Resolved) History of ureter repair (Resolved 09/02/12) History of ureter stent (Resolved 11/29/08) Status post bunionectomy (Resolved) Past family history: Family History (Last Reviewed 09/03/17 @ 12:11 by Alfredo Whalen PA-C) Father Hemorrhage due to ruptured congenital cerebral aneurysm Type 2 diabetes mellitus Family history of diabetes mellitus Family history of arthritis Essential hypertension Cerebrovascular accident Sister Type 2 diabetes mellitus Mother Family history of arthritis Essential hypertension Acute myocardial infarction Unknown Family history of coronary artery disease Osteoporosis Past social history: Does not smoke cigarettes. Medications and Allergies Home Medications Medication Instructions Recorded Confirmed Type cyanocobalamin (vit B-12) ER 1,000 1,000 mcg PO QDAY tab 12/03/14 09/03/17 History mcg tablet,extended release sevelamer carbonate 800 mg tablet 800 mg PO TIDAC 06/01/15 08/06/17 History calcium acetate 667 mg capsule 667 mg PO TIDCC 30 Days #60 cap 09/09/15 History trazodone 100 mg tablet 250 mg PO QHS 90 Days #225 tab 09/11/16 09/03/17 Rx Albuterol Sulfate [Ventolin] 2.5 mg NEB Q2HP PRN ampul.neb 05/20/17 09/03/17 Rx Ipratropium/Albuterol [Duoneb] 3 ml NEB BID ampul.neb 05/20/17 09/03/17 Rx Acetaminophen [Tylenol] 650 mg PO Q4-6HP PRN tab 05/28/17 09/03/17 Rx Vitamin D3 1,000 unit PO DAILY tab 05/28/17 09/03/17 Rx aripiprazole 2 mg tablet 2 mg PO QDAY 30 Days #30 tab 08/29/17 09/03/17 Rx budesonide 0.5 mg/2 mL suspension 0.5 mg INHALATION Q12 #60 ml 08/29/17 Rx for nebulization cephalexin 500 mg capsule 500 mg PO Q12H 14 Days #28 cap 08/29/17 09/03/17 Rx clopidogrel 75 mg tablet 75 mg PO DAILY #30 tab 08/29/17 09/03/17 Rx fluoxetine 40 mg capsule 40 mg PO QDAY #90 cap 08/29/17 09/03/17 Rx hydromorphone 2 mg tablet 2 mg PO Q8H PRN #90 tab 08/29/17 09/03/17 Rx nicotine 7 mg/24 hr daily 1 patch TRANSDERMA QDAY #30 each 08/29/17 09/03/17 Rx transdermal patch wheelchair See Dose Instructions .ROUTE 08/29/17 09/03/17 Rx .MEDSUPPLY #1 each sulfamethoxazole 800 1 tab PO BID 14 Days #28 tab 08/31/17 09/03/17 Rx mg-trimethoprim 160 mg tablet fludrocortisone 0.1 mg tablet 0.05 mg PO QDAY #30 tab 09/05/17 Rx midodrine 5 mg tablet 10 mg PO TID@0800,1200,1700 #180 09/05/17 Rx tab sennosides 8.6 mg tablet See Label Instructions PO HS #90 09/07/17 Rx tab Allergies Allergy/AdvReac Type Severity Reaction Status Date / Time codeine Allergy Mild Hives Verified 09/03/17 10:45 Oxycodone Allergy Mild Rash Verified 09/03/17 10:45 NSAIDS (Non-Steroidal Allergy Unknown Unknown Verified 09/03/17 10:45 Anti-Inflamma meperidine [From Demerol] AdvReac Mild Itching Verified 09/03/17 10:45 Exam - Vital Signs Vital signs: Temp Pulse Resp BP Pulse Ox 96.7 F L 64 16 87/65 100 09/08/17 12:10 09/08/17 14:56 09/08/17 14:56 09/08/17 14:56 09/08/17 14:56 - General Appearance General appearance: appears started age, chronically ill EENT: mucous membranes dry Neck: supple Respiratory: clear Cardiology: normal S1, normal S2 Gastrointestinal: tenderness Integumentary: no rash Neurologic: no focal deficit Musculoskeletal: no cyanosis Psychiatric: mood/affect appropriate, cooperative Results - Lab Results 09/08/17 13:05 09/08/17 13:05 Most recent lab results Calcium 9.6 mg/dl (8.6-10.4) 09/08/17 13:05 Magnesium 2.2 mg/dL (1.6-2.5) 09/08/17 13:05 Assessment and Plan (1) ESRD (end stage renal disease) on dialysis Chronic hemodialysis through left arm AV fistula, at [facility], on TTS, followed by Dr Valentin. Missed her scheduled dialysis on 09/08/17. Hypotensive in ED. Hypokalemia, no metabolic acidosis. No urgent need for hemodialysis. Anticipate hemodialysis on 09/09/17. Status: Chronic Priority: Medium (2) Anemia due to end stage renal disease Status: Chronic Priority: Medium (3) Secondary hyperparathyroidism of renal origin Status: Chronic Priority: Medium
--- NOTE | 2017-09-08 16:14 | Emergency Department Note ---
General Adult HPI - General Chief complaint: Blood Pressure Problem Stated complaint: Hypotension Time Seen by Provider: 09/08/17 12:34 Source: patient Mode of arrival: wheelchair Limitations: no limitations - History of Present Illness HPI Narrative: 72-year-old female comes in sick nauseous for the last 2-3 days with diarrhea over the last week. She is febrile. She has end-stage renal disease on dialysis. There is some mild confusion and tremor for the last week per her friend who is here for the interview and exam. No shortness of breath She is currently on Bactrim for MRSA infection of the right knee. This is followed by Dr. Kinsey at wound care - Related Data Home Medications Medication Instructions Recorded Confirmed cyanocobalamin (vit B-12) ER 1,000 1,000 mcg PO QDAY tab 12/03/14 09/03/17 mcg tablet,extended release sevelamer carbonate 800 mg tablet 800 mg PO TIDAC 06/01/15 08/06/17 calcium acetate 667 mg capsule 667 mg PO TIDCC 30 Days #60 cap 09/09/15 09/03/17 Sennosides [Senokot] 2 tab PO HS 09/09/17 09/09/17 Previous Rx's Medication Instructions Recorded trazodone 100 mg tablet 250 mg PO QHS 90 Days #225 tab 09/11/16 Albuterol Sulfate [Ventolin] 2.5 mg NEB Q2HP PRN ampul.neb 05/20/17 Ipratropium/Albuterol [Duoneb] 3 ml NEB BID ampul.neb 05/20/17 Acetaminophen [Tylenol] 650 mg PO Q4-6HP PRN tab 05/28/17 Vitamin D3 1,000 unit PO DAILY tab 05/28/17 aripiprazole 2 mg tablet 2 mg PO QDAY 30 Days #30 tab 08/29/17 budesonide 0.5 mg/2 mL suspension 0.5 mg INHALATION Q12 #60 ml 08/29/17 for nebulization cephalexin 500 mg capsule 500 mg PO Q12H 14 Days #28 cap 08/29/17 clopidogrel 75 mg tablet 75 mg PO DAILY #30 tab 08/29/17 fluoxetine 40 mg capsule 40 mg PO QDAY #90 cap 08/29/17 hydromorphone 2 mg tablet 2 mg PO Q8H PRN #90 tab 08/29/17 nicotine 7 mg/24 hr daily 1 patch TRANSDERMA QDAY #30 each 08/29/17 transdermal patch wheelchair See Dose Instructions .ROUTE 08/29/17 .MEDSUPPLY #1 each sulfamethoxazole 800 1 tab PO BID 14 Days #28 tab 08/31/17 mg-trimethoprim 160 mg tablet fludrocortisone 0.1 mg tablet 0.05 mg PO QDAY #30 tab 09/05/17 midodrine 5 mg tablet 10 mg PO TID@0800,1200,1700 #180 09/05/17 tab Allergies Allergy/AdvReac Type Severity Reaction Status Date / Time codeine Allergy Mild Hives Verified 09/03/17 10:45 Oxycodone Allergy Mild Rash Verified 09/03/17 10:45 NSAIDS (Non-Steroidal Allergy Unknown Unknown Verified 09/03/17 10:45 Anti-Inflamma meperidine [From Demerol] AdvReac Mild Itching Verified 09/03/17 10:45 Review of Systems All systems ED: reviewed and negative except as stated. Past Medical History - Past Medical History Attestation: Yes: The following information was validated with the patient. Medical history: Reports: arthritis, COPD, coronary artery disease, fibromyalgia , hypertension, hypothyroidism, migraine, osteoporosis, renal disease (Dialysis) , other (Pulmonary fibrosis, obstructive sleep apnea, gout, hemorrhoids) Surgical history ED: Reports: cataract, hysterectomy, JOSE/BSO, tonsillectomy, vascular surgery, other (AV fistula, bariatric surgery, small bowel resection, hammertoes, hemorrhoidectomy, lithotripsy, bunionectomy, abdominal abscess, ureteral surgery) - Social History smoking status: Former smoker Alcohol use: Reports: Rarely Drug use: Reports: none Physical Exam Ill-appearing fatigued female. Normocephalic atraumatic. Conjunctive are clear sclerae white and nonicteric. No nasal discharge or congestion. Oropharynx is with dry buccal mucosa. Neck is supple without lymphadenopathy or thyromegaly. Heart is regular rate and rhythm. Lungs are basically clear to auscultation bilaterally without respiratory distress. Abdomen is soft nontender nondistended. Exam of the right knee Shows a nickel sized ulceration- this is the wound that is being followed by Dr. Kinsey. No pedal edema. She is alert and able to answer questions appropriately. Tremulous Limitations: no limitations Course Vital Signs Temperature 96.7 F L 09/08/17 12:10 Pulse Rate 64 09/08/17 12:10 Respiratory Rate 16 09/08/17 12:10 Blood Pressure 67/37 09/08/17 12:10 Pulse Oximetry (%) 97 09/08/17 12:10 Temperature 99.4 F H 09/09/17 07:00 Pulse Rate 78 09/09/17 06:00 Respiratory Rate 22 09/09/17 07:00 Blood Pressure 98/64 09/09/17 07:00 Pulse Oximetry (%) 96 09/09/17 07:00 Medical Decision Making - Medical Records Medical records reviewed: Yes I reviewed the patient's medical records. - Lab Data Lab results reviewed: Yes I reviewed the patient's lab results. Result diagrams: 09/09/17 04:00 09/09/17 04:00 Lab Results 09/08/17 09/08/17 09/08/17 Range/Units 13:05 13:05 16:30 WBC 8.8 (4.5-11.0) K/mcL RBC 3.41 L (4.00-5.20) M/mcL Hgb 12.9 (12.0-15.0) g/dL Hct 38.8 (36.0-48.0) % MCV 113.8 H (80.0-100.0) fL MCH 37.8 H (26.0-34.0) pg MCHC 33.2 (31.0-36.0) g/dL RDW 19.2 H (11.5-14.5) % Plt Count 155 (140-440) K/mcL MPV 11.4 H (7.4-10.4) fL Gran % 68.6 (38.0-78.0) % Lymph % (Auto) 21.0 (15.5-49.0) % Jerome % (Auto) 7.4 (1.0-12.0) % Eos % (Auto) 2.8 (0.0-7.0) % Baso % (Auto) 0.2 (0.0-2.0) % Gran # 6.1 (1.8-8.0) K/mcL Lymph # (Auto) 1.9 (1.5-4.8) K/mcL Jerome # (Auto) 0.7 (0.1-0.9) K/mcL Eos # (Auto) 0.3 (0.0-0.7) K/mcL Baso # (Auto) 0 (0.0-0.3) K/mcL VBG Lactic Acid 1.9 (0.5-2.2) mmol/L Sodium 138 (133-145) mmol/L Potassium 2.9 L* (3.3-5.1) mmol/L Chloride 90 L (96-108) mmol/L Carbon Dioxide 29 (22-30) mmol/L Anion Gap 19.0 H (8-16) BUN 18 (8-23) mg/dl Creatinine 4.6 H (0.6-1.1) mg/dl GFR Calculation 9 Glucose 81 (70-105) mg/dL Calcium 9.6 (8.6-10.4) mg/dl Magnesium 2.2 (1.6-2.5) mg/dL Total Bilirubin 0.5 (0.0-1.0) mg/dL AST 15 (0-37) U/l ALT 10 (0-40) U/l Alkaline Phosphatase 73 (39-117) U/L Total Protein 6.4 (5.9-8.4) gm/dL Albumin 3.6 (3.2-5.2) gm/dL Globulin 2.8 (2.2-3.7) gm/dL Albumin/Globulin Ratio 1.3 (1.0-2.3) Amylase 27 L (28-100) U/L Lipase 13 (7-60) U/L Procalcitonin (<0.10) ng/mL Random Cortisol ug/dl 09/08/17 09/08/17 Range/Units 16:30 16:37 WBC (4.5-11.0) K/mcL RBC (4.00-5.20) M/mcL Hgb (12.0-15.0) g/dL Hct (36.0-48.0) % MCV (80.0-100.0) fL MCH (26.0-34.0) pg MCHC (31.0-36.0) g/dL RDW (11.5-14.5) % Plt Count (140-440) K/mcL MPV (7.4-10.4) fL Gran % (38.0-78.0) % Lymph % (Auto) (15.5-49.0) % Jerome % (Auto) (1.0-12.0) % Eos % (Auto) (0.0-7.0) % Baso % (Auto) (0.0-2.0) % Gran # (1.8-8.0) K/mcL Lymph # (Auto) (1.5-4.8) K/mcL Jerome # (Auto) (0.1-0.9) K/mcL Eos # (Auto) (0.0-0.7) K/mcL Baso # (Auto) (0.0-0.3) K/mcL VBG Lactic Acid (0.5-2.2) mmol/L Sodium (133-145) mmol/L Potassium (3.3-5.1) mmol/L Chloride (96-108) mmol/L Carbon Dioxide (22-30) mmol/L Anion Gap (8-16) BUN (8-23) mg/dl Creatinine (0.6-1.1) mg/dl GFR Calculation Glucose (70-105) mg/dL Calcium (8.6-10.4) mg/dl Magnesium (1.6-2.5) mg/dL Total Bilirubin (0.0-1.0) mg/dL AST (0-37) U/l ALT (0-40) U/l Alkaline Phosphatase (39-117) U/L Total Protein (5.9-8.4) gm/dL Albumin (3.2-5.2) gm/dL Globulin (2.2-3.7) gm/dL Albumin/Globulin Ratio (1.0-2.3) Amylase (28-100) U/L Lipase (7-60) U/L Procalcitonin 0.58 (<0.10) ng/mL Random Cortisol 19.3 ug/dl - Radiology Data Radiology results reviewed: Yes I reviewed the patient's radiology results. CT scan of the head was done because of the new tremulousness over the last week -no acute findings X-ray of the abdomen was done first which showed possible small bowel obstruction. This was followed by CT scan of the abdomen pelvis which showed small bowel obstruction of the jejunum a transition point. Assorted other smaller findings noted Disposition Pt seen by LOAN OFFICER/PA only: No Clinical Impression: ESRD (end stage renal disease) on dialysis, Small bowel obstruction due to adhesions, Hypokalemia, Infection of wound due to methicillin resistant Staphylococcus aureus (MRSA), Dehydration Hypotension Qualifiers: Hypotension type: unspecified hypotension type Qualified Code(s): I95.9 - Hypotension, unspecified Summary: After initial interview and exam patient is started on some IV fluids because she appears to be dehydrated and is mildly hypotensive Imaging shows small bowel obstruction and so Dr. Melchor Ricketts general surgeon is contacted. He agreed to consult on the patient Laboratory shows hypokalemia and so potassium K rider is done Because of her other issues including COPD and end-stage renal disease on dialysis nephrology is also contacted as is the hospitalist. Dr. Bynum came and saw the patient, authorizing her CT scan and advising dialysis tomorrow morning Dr. Amin, hospitalist, agreed to accept the patient with consults noted above further inpatient care. Disposition: Xfer As Inpt ([facility]) Condition: Serious
--- NOTE | 2017-09-08 17:55 | Internal Med History&Physical ---
Medical - H&P: HPI Patient information: Note initiated : 09/08/17 at 5:51 pm Service Date, if different from initiated Date: [] Patient: Naz Joseph a 72 y/o F admitted on 09/08/17 for Hypotension. Chief Complaint: [] History of present illness: Ms. Joseph is a 72 year old Female with h/o end-stage renal disease on dialysis follows with Dr. REAGAN, the patient presents to the emergency room after being sent from dialysis to the ER for low blood pressure. According to the patient she has not been well for the last 2 weeks. She has been weak, she fell down reports this as a mechanical fall and injured the right side of the knee. She developed a wound for which she has been followed by the wound care clinic. According to the patient history the swab taken from that wound was growing MRSA, patient is on Bactrim and Keflex for same. The patient has been having ongoing diarrhea for approximately last 1 week liquid watery dark green 4-5 episodes every day, she has been getting weaker and more fatigued. She has had decreased appetite and has not been eating or drinking very well. She also admits to be having some nausea. The patient reports that she is not able to ambulate well and finds it difficult to even get up and move around. She presented for dialysis at which point in time she was noted to have low blood pressures with systolic in 70s, he was therefore sent to the emergency room for further evaluation. The patient also notes that she has subjective sensations of chills and intermittent shakes which have been progressively getting worse over the last weeks. Has any documented fever, has chronic headaches worse now, no dizziness , no changes in vision, has dry mouth no difficulty in swallowing no changes in hearing, no neck swelling or lymphadenopathy no bleeding. She has shortness of breath on exertion which is far worse than her baseline. She denies any chest pain, has nausea no abdominal pain she had diarrhea over the last 1 week. The patient denies any acute joint swelling or joint pain besides the right knee. In the emergency room the patient was afebrile, heart rate 67 blood pressure 78/ 61, saturating 98% on room air, White blood cell count was 8.8 hemoglobin 12.9 platelets 155, sodium 138, potassium 2.9, bicarbonate 29 creatinine 4.6 glucose level was 81. The patient's x-ray of the abdomen showed possible small bowel obstruction, CT scan of the abdomen was done with contrast after consultation with nephrology and was tentatively reported as small bowel obstruction. Dr. Ricketts the general surgeon was consulted from the emergency room. He would be seeing the patient. The patient's right knee had an ulcer with erythema extending on the anterior aspect of the knee, on my exam there was fluctuation likely infected bursitis Given low blood pressure, which remained low despite 2 L of fluid resuscitation possible abscess, small bowel obstruction the patient has been admitted to the ICU for further management. All systems: reviewed and no additional remarkable complaints except as stated ( as per HPI) Medical - H&P: PMH Medical history: Medical History (Last Reviewed 09/03/17 @ 12:11 by Alfredo Whalen PA-C) Aspiration into airway (Chronic) Pulmonary fibrosis (Chronic) Aortic valve sclerosis (Chronic) Fatigue (Acute) Weakness (Acute) Dyspnea (Acute) COPD (chronic obstructive pulmonary disease) (Chronic) Cough (Chronic) Obstructive sleep apnea (Chronic) Fracture, femur neck (Resolved 09/24/15) Hematoma and contusion (Resolved) Muscle cramps (Resolved) Cyst of Bartholin's gland duct (Resolved) Hemorrhage of arteriovenous fistula (Resolved) Hematoma (Chronic) Pericarditis (Chronic) Hypertension (Chronic) Chest pain (Chronic) Coronary artery disease involving ruby coronary artery (Chronic) Dependence on renal dialysis (Chronic) End stage renal disease (Chronic) History of echocardiogram (Chronic 06/04/15) Pericardial effusion (Chronic) Insomnia (Chronic) Vitamin B 12 deficiency (Chronic) Venous insufficiency (Chronic 01/13/14) UTI (urinary tract infection) (Chronic) Tobacco use (Resolved) 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) Rotator cuff tear (Chronic 04/09/14) Rotator cuff arthropathy (Chronic 04/09/14) Renal insufficiency (Chronic 11/03/14) Renal failure (Chronic) Proteinuria (Chronic 07/14/13) Osteoporosis (Chronic) Osteoarthritis (Chronic 10/07/04) Obstructive uropathy (Chronic 11/10/14) Nephrolithiasis (Chronic 07/14/13) Systolic murmur (Chronic) Migraine (Chronic) Metabolic acidosis (Chronic 07/14/13) Joint pain (Chronic) Impaired fasting glucose (Chronic) Hypertensive renal disease (Chronic 07/14/13) Hypertension, essential (Chronic) Hemorrhoids, internal (Chronic 11/03/13) Gout (Chronic 07/14/13) Fibromyalgia (Chronic) Edema (Chronic 11/19/14) Diarrhea (Chronic) Depression (Chronic) Degenerative arthritis (Chronic) Deep vein thrombosis (Chronic) Chronic kidney disease, stage IV (severe) (Chronic 07/14/13) Carpal tunnel syndrome (Chronic) Bone spur (Chronic 11/12/02) Anxiety (Chronic) Blood clot associated with vein wall inflammation (Resolved) Fecal incontinence (Resolved 09/19/13) Tendonitis (Resolved 09/08/12) Surgical history: Past Surgical History (Last Reviewed 09/03/17 @ 12:11 by Alfredo Whalen PA-C) Arteriovenous fistula, acquired (Chronic) History of bariatric surgery (Chronic) History of resection of small bowel (Chronic 03/23/15) History of lithotripsy (Acute 09/21/15) History of gastrointestinal surgery (Chronic) History of rectal surgery (Chronic) History of surgery (Chronic) Hx of appendectomy (Chronic) Hx of cataract surgery (Chronic) Hx of shoulder surgery (Chronic) Hx of tonsillectomy (Chronic) S/P JOSE-BSO (Chronic) S/P nerve repair (Chronic) History of abdominal surgery (Resolved 11/03/14) History of adenoidectomy (Resolved) History of cataract surgery (Resolved) History of colonoscopy (Resolved 11/03/13) History of cystoscopy (Resolved 04/20/11) History of hammer toe correction (Resolved) History of hemorrhoidectomy (Resolved) History of hysterectomy (Resolved) History of intravenous pyelogram (Resolved 05/19/11) History of lithotripsy (Resolved 01/12/09) History of oophorectomy (Resolved) History of tonsillectomy (Resolved) History of ureter repair (Resolved 09/02/12) History of ureter stent (Resolved 11/29/08) Status post bunionectomy (Resolved) Pertinent family history: Family History (Last Reviewed 09/03/17 @ 12:11 by Alfredo Whalen PA-C) Father Hemorrhage due to ruptured congenital cerebral aneurysm Type 2 diabetes mellitus Family history of diabetes mellitus Family history of arthritis Essential hypertension Cerebrovascular accident Sister Type 2 diabetes mellitus Mother Family history of arthritis Essential hypertension Acute myocardial infarction Unknown Family history of coronary artery disease Osteoporosis Medical - H&P: Meds Home Medications Medication Instructions Recorded Confirmed Type cyanocobalamin (vit B-12) ER 1,000 1,000 mcg PO QDAY tab 12/03/14 09/03/17 History mcg tablet,extended release sevelamer carbonate 800 mg tablet 800 mg PO TIDAC 06/01/15 08/06/17 History calcium acetate 667 mg capsule 667 mg PO TIDCC 30 Days #60 cap 09/09/15 History trazodone 100 mg tablet 250 mg PO QHS 90 Days #225 tab 09/11/16 09/03/17 Rx Albuterol Sulfate [Ventolin] 2.5 mg NEB Q2HP PRN ampul.neb 05/20/17 09/03/17 Rx Ipratropium/Albuterol [Duoneb] 3 ml NEB BID ampul.neb 05/20/17 09/03/17 Rx Acetaminophen [Tylenol] 650 mg PO Q4-6HP PRN tab 05/28/17 09/03/17 Rx Vitamin D3 1,000 unit PO DAILY tab 05/28/17 09/03/17 Rx aripiprazole 2 mg tablet 2 mg PO QDAY 30 Days #30 tab 08/29/17 09/03/17 Rx budesonide 0.5 mg/2 mL suspension 0.5 mg INHALATION Q12 #60 ml 08/29/17 Rx for nebulization cephalexin 500 mg capsule 500 mg PO Q12H 14 Days #28 cap 08/29/17 09/03/17 Rx clopidogrel 75 mg tablet 75 mg PO DAILY #30 tab 08/29/17 09/03/17 Rx fluoxetine 40 mg capsule 40 mg PO QDAY #90 cap 08/29/17 09/03/17 Rx hydromorphone 2 mg tablet 2 mg PO Q8H PRN #90 tab 08/29/17 09/03/17 Rx nicotine 7 mg/24 hr daily 1 patch TRANSDERMA QDAY #30 each 08/29/17 09/03/17 Rx transdermal patch wheelchair See Dose Instructions .ROUTE 08/29/17 09/03/17 Rx .MEDSUPPLY #1 each sulfamethoxazole 800 1 tab PO BID 14 Days #28 tab 08/31/17 09/03/17 Rx mg-trimethoprim 160 mg tablet fludrocortisone 0.1 mg tablet 0.05 mg PO QDAY #30 tab 09/05/17 Rx midodrine 5 mg tablet 10 mg PO TID@0800,1200,1700 #180 09/05/17 Rx tab sennosides 8.6 mg tablet See Label Instructions PO HS #90 09/07/17 Rx tab Allergies Allergy/AdvReac Type Severity Reaction Status Date / Time codeine Allergy Mild Hives Verified 09/03/17 10:45 Oxycodone Allergy Mild Rash Verified 09/03/17 10:45 NSAIDS (Non-Steroidal Allergy Unknown Unknown Verified 09/03/17 10:45 Anti-Inflamma meperidine [From Demerol] AdvReac Mild Itching Verified 09/03/17 10:45 Medical - H&P: Exam - Constitutional Vitals: Temp Pulse Resp BP Pulse Ox 96.7 F L 67 17 84/72 98 09/08/17 12:10 09/08/17 17:05 09/08/17 17:05 09/08/17 17:05 09/08/17 17:05 Exam: GENERAL: The patient is a well-developed, well-nourished in no apparent distress. Is alert and oriented x3. VITAL SIGNS: Reviewed and as noted elsewhere. HEENT: Head is normocephalic and atraumatic. Extraocular muscles are intact. Pupils are equal, round, and reactive to light. Nares appeared normal. Mouth appears any without lesions. Mucous membranes are dry. NECK: Normal to inspection, Supple, No lymphadenopathy or thyromegaly. LUNGS: Air entry equal on both sides, no wheezing, crackles or rhonchi noted. No accessory muscles of respiration HEART: Regular rate and rhythm normal, S1 and S2 heard, no Gallop, S3 or Rub Noted, No Gross murmur heard. ABDOMEN: Soft, nontender, and nondistended. Positive bowel sounds. No hepatosplenomegaly was noted. EXTREMITIES: No cyanosis, clubbing, venous stasis and bilateral pedal edema +3 as well as edema in the dependent region NEUROLOGIC: Cranial nerves II through XII are grossly intact. Motor and Sensory System Grossly Intact PSYCHIATRIC: Normal affect, Normal Mood. Appropriate Behavior. SKIN: No ulceration or wounds noted, No jaundice, No rash noted. [Right knee has a wound 2 x 2 cms, fluctuation in the skin lesion below the knee, likely bursitis or infected bursitis versus an abscess] Medical - H&P: Reslt - Labs CBC & Chem 7: 09/08/17 13:05 09/08/17 13:05 Labs: Short CBC 09/08/17 Range/Units 13:05 WBC 8.8 (4.5-11.0) K/mcL Hgb 12.9 (12.0-15.0) g/dL Hct 38.8 (36.0-48.0) % Plt Count 155 (140-440) K/mcL BMP 09/08/17 13:05 Sodium 138 Potassium 2.9 L* Chloride 90 L Carbon Dioxide 29 BUN 18 Creatinine 4.6 H Glucose 81 Calcium 9.6 Liver Function 09/08/17 Range/Units 13:05 Total Bilirubin 0.5 (0.0-1.0) mg/dL AST 15 (0-37) U/l ALT 10 (0-40) U/l Alkaline Phosphatase 73 (39-117) U/L Albumin 3.6 (3.2-5.2) gm/dL Medical - H&P: A/P - Narrative A/P Narrative: A/P Hypotension : despite 2 L fluids, likely from dehydration and infection, treat underlying infection, IV fluids, place centra line and start on pressors. Usually takes midodrine at home, but this time despite 2 doses, bp remained low. Small bowel obstruction: Place NG tube to wall suction, Surgery to evaluate. Await official CT report Diarrhea: check for Cdiff, Right knee bursitis/ Open wound: Possibly infected bursits based on clinical appearance, get X Ray of the knee to evaluate for bony pathology, if neg Gen Surgery can drain same. If not will need to consult ortho. Pt has mrsa as per last wound, will start on IV vancomycin and zosyn for now, deescalate abx per cultures. Will follow up with wound care clinic at discharge Hypokalemia: due to poor oral intake, monitor for now, Pt is ESRD on HD, will replace after central line placed. ESRD on HD, followed by Dr Reagan, pt is being followed by [facility] for now, HD planned for tomorrow, COPD: No wheezing on exam to continue bronchodilators, X Ray chest will be done. Fibromyalgia/ Chr pain: Resume home meds once verified. CAD no chest pain, on plavix, continue same, not on statin? intolerant? DVT hep sq Diet NPO for now DNR code status. Social History - Social History household members: spouse housing: house marital status: occupational status: retired - Dietary Habits well-balanced diet: daily or most days during the past year weight has: remained stable - Exercise physical activity: none - Tobacco smoking status: Former smoker - Quit Details quit date: 06/18/04 pack-years: 40 - Alcohol alcohol intake frequency: does not drink - Substance use substance use type: does not use - Home Safety working smoke detector in home: Yes
[2017-09-08] MEDS ORDERED: VANCOMYCIN PER PHARMACY IV ONE (18:01)
[2017-09-08] MEDS ORDERED: LORazepam 2 MG/ML VIAL ONE (18:19)
[2017-09-08] MEDS ORDERED: LORazepam 2 MG/ML VIAL IV PRN (18:26)
[2017-09-08] MEDS ORDERED: VANCOMYCIN 1,250 MG in 0.9 % SODIUM CHLORIDE 500 ML IV ONE (18:30)
[2017-09-08] MEDS ORDERED: NOREPINEPHRINE BITARTRATE 4 MG/4 ML AMPUL IV ONE (18:43)
[2017-09-08] MEDS ORDERED: HEPARIN/NS 500 ML IV ONE (18:53)
[2017-09-08] MEDS: NOREPINEPHRINE BITARTRATE 16 MG in 0.9 % SODIUM CHLORIDE 234 ML IV SCH (19:15)
[2017-09-08] MEDS: DEXTROSE 50% 50 ML VIAL IV PRN (19:32)
--- NOTE | 2017-09-08 19:52 | Procedure Note ---
Procedures - Central Line Placement Right IJ Consent obtained: verbal consent, written consent Time out performed: Yes Patient placed on monitor/pulse ox: Yes MD prep: mask, sterile gown, sterile gloves, cap Central line prep: 2% Chlorhexidine scrub Local anesthesia used: lidocaine 2% Ultrasound used for placement: Yes Central line lumen inserted: quad, 16 cm Post procedure: sutured in place, good blood return, all ports aspirated, flushed, capped, sterile dressing applied Post procedure x-ray: tip of catheter in good position, no pneumothorax seen Patient tolerated procedure: well Complications: hematoma at puncture site
--- NOTE | 2017-09-08 19:53 | General Surgery Consult Note ---
History of Present Illness Patient information: Note initiated : 09/08/17 at 7:44 pm Service Date, if different from initiated Date: [] Patient: Naz Joseph 72 y/o F admitted on 09/08/17 for Hypotension. Chief Complaint: [] Reason for consult: abdominal pain Requesting physician: Meme Amin History of present illness: 72-year-old female who was admitted via the emergency room for evaluation of multiple medical problems. The patient was transferred from dialysis to the emergency room because of hypotension and general fraility. She had systolic blood pressures in the 70s with a map about 62 but without tachycardia. She has a chronically low blood pressure over the past year or so. She states that over the past week she has had diarrhea up to 5 times per day. She is also had episodic nausea with vomiting. She denies having any epigastric or mid abdominal pain but she admits to having some lower abdominal pain. There is concerned that she has significant sepsis contributing to her hypotension. An abdominal CT was done and it shows a dilated stomach and duodenum with some gas and fluid throughout her small bowel and some gas in her colon. Her small bowel pattern is more compatible with ileus rather than obstruction. She has had a jejunal ileal bypass with follow-up takedown due to nutritional deficiencies. The jejunojejunal anastomosis appears to be widely patent and there is gas and fluid distal to the anastomosis. The patient has a chronic swollen right knee from a fall. This has been followed in the wound clinic. A surface swab of the abrasion showed MRSA. There is some concern that the bursa is swollen and that this may be a source of sepsis. There is no limitation of motion of the knee and she has significant ecchymosis with resolving hematoma of the knee and the lower leg. Her white blood count is 8.8 and her hemoglobin is stable. She is on Plavix but not other anticoagulant drugs. Review of Systems - Constitutional fatigue, frequent falls, malaise, weakness, weight loss - EENT Nose, mouth and throat: disequilibrium, dysphagia, headache(s) - Cardiovascular dyspnea on exertion, lightheadedness, palpatations, pedal edema, no chest pain at rest, no diaphoresis - Respiratory cough, dyspnea on exertion - Gastrointestinal abdominal pain, change in bowel habits, change in stool character, diarrhea, fecal incontinence, loose stools, nausea, vomiting - Genitourinary Genitourinary: urinary frequency, urinary incontinence - Musculoskeletal abnormal gait, back pain, joint swelling, myalgias, stiffness - Integumentary bleeding lesions, non-healing lesions, skin ulcer (Chronic ulceration right knee ), no pruritus, no rash - Neurological disequilibrium, dizziness, frequent falls, headache(s), lack of coordination, tremor(s), vertigo - Psychiatric depression - Endocrine fatigue, no excessive sweating - Hematologic/Lymphatic easy bruising, lymphadenopathy, no easy bleeding - Allergic/Immunologic no tongue swelling, no throat swelling, no uticaria, no wheezing, no lip swelling Past History Past medical history: Chronic anxiety Chronic kidney disease on hemodialysis Hypertensive renal disease History of kidney stones Hypothyroidism History of urinary tract infections Osteoarthritis Chronic obstructive lung disease Chronic anasarca Past surgical history: Jejunal ileal bypass Jejunal ileal bypass takedown Hemorrhoidectomy Hysterectomy with oophorectomy History of ureteral stent and repair Hammertoe and bunionectomy surgery Past family history: Diabetes mellitus Essential hypertension Stroke Coronary artery disease Past social history: Former smoker Denies alcohol use Medications and Allergies Home Medications Medication Instructions Recorded Confirmed Type cyanocobalamin (vit B-12) ER 1,000 1,000 mcg PO QDAY tab 12/03/14 09/03/17 History mcg tablet,extended release sevelamer carbonate 800 mg tablet 800 mg PO TIDAC 06/01/15 08/06/17 History calcium acetate 667 mg capsule 667 mg PO TIDCC 30 Days #60 cap 09/09/15 History trazodone 100 mg tablet 250 mg PO QHS 90 Days #225 tab 09/11/16 09/03/17 Rx Albuterol Sulfate [Ventolin] 2.5 mg NEB Q2HP PRN ampul.neb 05/20/17 09/03/17 Rx Ipratropium/Albuterol [Duoneb] 3 ml NEB BID ampul.neb 05/20/17 09/03/17 Rx Acetaminophen [Tylenol] 650 mg PO Q4-6HP PRN tab 05/28/17 09/03/17 Rx Vitamin D3 1,000 unit PO DAILY tab 05/28/17 09/03/17 Rx aripiprazole 2 mg tablet 2 mg PO QDAY 30 Days #30 tab 08/29/17 09/03/17 Rx budesonide 0.5 mg/2 mL suspension 0.5 mg INHALATION Q12 #60 ml 08/29/17 Rx for nebulization cephalexin 500 mg capsule 500 mg PO Q12H 14 Days #28 cap 08/29/17 09/03/17 Rx clopidogrel 75 mg tablet 75 mg PO DAILY #30 tab 08/29/17 09/03/17 Rx fluoxetine 40 mg capsule 40 mg PO QDAY #90 cap 08/29/17 09/03/17 Rx hydromorphone 2 mg tablet 2 mg PO Q8H PRN #90 tab 08/29/17 09/03/17 Rx nicotine 7 mg/24 hr daily 1 patch TRANSDERMA QDAY #30 each 08/29/17 09/03/17 Rx transdermal patch wheelchair See Dose Instructions .ROUTE 08/29/17 09/03/17 Rx .MEDSUPPLY #1 each sulfamethoxazole 800 1 tab PO BID 14 Days #28 tab 08/31/17 09/03/17 Rx mg-trimethoprim 160 mg tablet fludrocortisone 0.1 mg tablet 0.05 mg PO QDAY #30 tab 09/05/17 Rx midodrine 5 mg tablet 10 mg PO TID@0800,1200,1700 #180 09/05/17 Rx tab sennosides 8.6 mg tablet See Label Instructions PO HS #90 09/07/17 Rx tab Allergies Allergy/AdvReac Type Severity Reaction Status Date / Time codeine Allergy Mild Hives Verified 09/03/17 10:45 Oxycodone Allergy Mild Rash Verified 09/03/17 10:45 NSAIDS (Non-Steroidal Allergy Unknown Unknown Verified 09/03/17 10:45 Anti-Inflamma meperidine [From Demerol] AdvReac Mild Itching Verified 09/03/17 10:45 Exam Temp Pulse Resp BP Pulse Ox 97.6 F 68 18 87/54 96 09/08/17 17:52 09/08/17 18:02 09/08/17 18:02 09/08/17 18:02 09/08/17 17:52 - General physical appearance well developed, well nourished, moderate distress, moderate pain, chronically ill, obese, other (Major anasarca) - Eyes PERRL, normal ocular movement - ENT normal pinna, normal nares, normal mucosa, no hearing loss, no congestion - Head Head exam IM: Present: atraumatic, normal inspection, normocephalic - Neck no masses, no bruits, trachea midline, no lymphadectomy, no venous distension, other (Central venous catheter right neck) - Cardiovascular Cardiovascular exam IM: Present: irregular rhythm, +S1, +S2. Absent: JVD - Respiratory normal expansion, normal respiratory effort, clear to percussion, other ( Decreased breath sounds dependently on both sides) - Abdomen Abdomen: Present: soft, tender (Mild tenderness in the hypogastrium; good active bowel sounds; no epigastric tenderness or mass; no evidence of hernia; healed midline incision), bowel sounds Hernia: Present: none - Genitourinary Present: normal external genitalia - Integumentary Present: no abnormal pigmentation, other (Extensive old abrasions and superficial lacerations with scattered ecchymoses in various areas with evidence of healing) - Neurologic Present: normal coordination, normal sensation, other (Poor movement of lower extremities due to general weakness and pain) - Musculoskeletal Present: other (Gait and stance not tested) - Psychiatric Present: oriented to time, oriented to person, oriented to place, speech is normal, memory intact Results - Labs 09/08/17 13:05 09/08/17 13:05 Abnormal lab results 09/08/17 09/08/17 Range/Units 13:05 13:05 RBC 3.41 L (4.00-5.20) M/mcL MCV 113.8 H (80.0-100.0) fL MCH 37.8 H (26.0-34.0) pg RDW 19.2 H (11.5-14.5) % MPV 11.4 H (7.4-10.4) fL Potassium 2.9 L* (3.3-5.1) mmol/L Chloride 90 L (96-108) mmol/L Anion Gap 19.0 H (8-16) Creatinine 4.6 H (0.6-1.1) mg/dl Amylase 27 L (28-100) U/L Diabetes panel 09/08/17 Range/Units 13:05 Sodium 138 (133-145) mmol/L Potassium 2.9 L* (3.3-5.1) mmol/L Chloride 90 L (96-108) mmol/L Carbon Dioxide 29 (22-30) mmol/L BUN 18 (8-23) mg/dl Creatinine 4.6 H (0.6-1.1) mg/dl Glucose 81 (70-105) mg/dL Calcium 9.6 (8.6-10.4) mg/dl AST 15 (0-37) U/l ALT 10 (0-40) U/l Alkaline Phosphatase 73 (39-117) U/L Total Protein 6.4 (5.9-8.4) gm/dL Albumin 3.6 (3.2-5.2) gm/dL Calcium panel 09/08/17 Range/Units 13:05 Calcium 9.6 (8.6-10.4) mg/dl Albumin 3.6 (3.2-5.2) gm/dL Pituitary panel 09/08/17 Range/Units 13:05 Sodium 138 (133-145) mmol/L Potassium 2.9 L* (3.3-5.1) mmol/L Chloride 90 L (96-108) mmol/L Carbon Dioxide 29 (22-30) mmol/L BUN 18 (8-23) mg/dl Creatinine 4.6 H (0.6-1.1) mg/dl Glucose 81 (70-105) mg/dL Calcium 9.6 (8.6-10.4) mg/dl Adrenal panel 09/08/17 Range/Units 13:05 Sodium 138 (133-145) mmol/L Potassium 2.9 L* (3.3-5.1) mmol/L Chloride 90 L (96-108) mmol/L Carbon Dioxide 29 (22-30) mmol/L BUN 18 (8-23) mg/dl Creatinine 4.6 H (0.6-1.1) mg/dl Glucose 81 (70-105) mg/dL Calcium 9.6 (8.6-10.4) mg/dl Total Bilirubin 0.5 (0.0-1.0) mg/dL AST 15 (0-37) U/l ALT 10 (0-40) U/l Alkaline Phosphatase 73 (39-117) U/L Total Protein 6.4 (5.9-8.4) gm/dL Albumin 3.6 (3.2-5.2) gm/dL All other labs normal. Assessment and Plan (1) Chronic diarrhea We will follow-up on C. difficile titers though abdominal exam is not very impressive for inflammatory process and white blood count is normal Status: Acute (2) Nausea and vomiting Clinical picture does not support small bowel obstruction though partial obstruction has not been ruled out We will get abdominal x-rays in the morning Status: Acute (3) Anasarca Status: Acute (4) Hypotension Status: Acute Qualifiers: Hypotension type: unspecified hypotension type Qualified Code(s): I95.9 - Hypotension, unspecified (5) ESRD (end stage renal disease) on dialysis Status: Chronic Priority: Medium (6) Ulcer of right knee The changes of the prepatellar bursa are more suggestive of resolving hematoma than actual infection. Patient is on adequate antibiotic coverage for the time being and serial exams will be done. Since there is superficial MRSA on the wound, aspiration of the bursa should probably be avoided at this time to prevent introduction of MRSA into the bursa. Status: Acute
[2017-09-08] MEDS: INSULIN LISPRO 1 UNIT/0.01 ML UNIT SQ SCH (19:54)
[2017-09-08] MEDS: PIPERACILLIN SODIUM/TAZOBACTAM 2.25 GM in DEXTROSE 5% IN WATER 50 ML IV SCH (20:29)
[2017-09-08] MEDS ORDERED: POTASSIUM CHLORIDE 20 MEQ in DEXTROSE 5% IN WATER 100 ML IV ONE (21:07)
[2017-09-08] MEDS ORDERED: POTASSIUM CHLORIDE 20 MEQ/10 ML VIAL IV ONE (21:22)
[2017-09-08] MEDS: HEPARIN 5,000 UNIT/ML VIAL SQ SCH (21:25)
[2017-09-08] MEDS: 0.9 % SODIUM CHLORIDE 10 ML SYRINGE IV SCH ×2 (21:28→21:29)
[2017-09-08] MEDS: FAMOTIDINE/PF 20 MG/2 ML VIAL IV SCH (21:28)
[2017-09-09] MEDS: INSULIN LISPRO 1 UNIT/0.01 ML UNIT SQ SCH ×4 (00:40→18:20)
[2017-09-09] MEDS: DEXTROSE 50% 50 ML VIAL IV PRN (01:10)
--- NOTE | 2017-09-09 05:58 | XRay Report ---
INDICATION: Central venous catheter placement TECHNIQUE: AP chest x-ray,portable supine COMPARISON: July 11, 2017. CT scan dated September 08, 2017 FINDINGS:Elevated right hemidiaphragm. There is a right central venous catheter with its tip in the proximal right atrium. No pneumothorax identified on this AP, supine radiograph. Left basilar volume loss and diffuse left-sided infiltrates. Infiltrates appear worse than on previous CT scan. There is a small to moderate left pleural effusion. Follow-up radiographs recommended IMPRESSION: 1. Right central venous catheter with its tip in the proximal right atrium 2. Left basilar volume loss and diffuse left sided infiltrates. [id number] left pleural effusion Interpreted and Authenticated by: Fortino Hernandez 09/09/17
--- NOTE | 2017-09-09 06:08 | XRay Report ---
CLINICAL INFORMATION: Knee pain. Injury. TECHNIQUE: AP and lateral right knee COMPARISON: 08/06/2017 FINDINGS: Negative right knee. No acute fracture. Distal femur and proximal tibia are negative. No plain film evidence for significant joint effusion. No acute abnormality or interval change IMPRESSION: Negative right knee Interpreted and Authenticated by: Fortino Hernandez 09/09/17
[2017-09-09] MEDS: 0.9 % SODIUM CHLORIDE 10 ML SYRINGE IV SCH ×6 (06:13→21:17)
[2017-09-09 06:20] LABS: ALT/SGPT 8 U/l (0-40); Albumin/Globulin Ratio 1.2 (1.0-2.3); Alkaline Phosphatase 64 U/L (39-117); Bilirubin,Direct 0.3 mg/dL (0.0-0.3); Blood Urea Nitrogen 19 mg/dl (8-23); Gamma Glutamyl Transpeptidase 17 U/L (5-36); Uric Acid 6.6 mg/dL (2.5-8.0)
[2017-09-09 06:34] LABS: Basophils # (Auto) 0.1 K/mcL (0.0-0.3); Basophils % (Auto) 0.5 % (0.0-2.0); Eosinophils # (Auto) 0.4 K/mcL (0.0-0.7); Eosinophils % (Auto) 4.2 % (0.0-7.0); Granulocytes % (Auto) 67.6 % (38.0-78.0); Lymphocytes % (Auto) 18.5 % (15.5-49.0); Mean Cell Volume 114.8 fL (80.0-100.0); Mean Corpuscular HGB Conc 32.8 g/dL (31.0-36.0); Mean Corpuscular Hemoglobin 37.6 pg (26.0-34.0); Monocytes % (Auto) 9.2 % (1.0-12.0); Platelet Count 164 K/mcL (140-440); Red Cell Distribution Width 21.3 % (11.5-14.5)
[2017-09-09] MEDS ORDERED: VANCOMYCIN PER PHARMACY IV SCH (07:15)
--- NOTE | 2017-09-09 07:32 | Nephrology Progress Note ---
Subjective Patient information: Note initiated : 09/09/17 at 7:31 am Patient: Naz Joseph a 72 y/o F admitted on 09/08/17 for Hypotension. Chief Complaint: Weakness Principal diagnosis: End stage renal disease on chronic hemodialysis Interval history: Naz Joseph is an [id number] female with end stage renal disease on chronic hemodialysis (through left arm AV fistula, at [facility], on TTS, followed by Dr Valentin), chronic anemia due to chronic kidney disease, secondary hyperparathyroidism, history of gout, coronary artery disease, presented for her scheduled dialysis on 09/08/17. She was hypotensive (71/54) despite 2 doses of Midodrine at home on arrival to dialysis unit and sent to ED and admitted. She is in ICU on IV pressors. Pertinent ROS: Alert and oriented. Feels sick. Weakness. Anorexia. Generalized edema. Objective - Vital Signs Vital signs: Vital Signs Temp Pulse Pulse Resp BP BP Pulse Ox 09/09/17 07:00 99.4 F H 22 98/64 96 09/09/17 06:00 78 16 80/61 98 09/09/17 05:18 78 18 79/57 98 09/09/17 04:00 98.3 F 78 18 93/66 99 09/09/17 03:00 77 17 92/67 98 09/09/17 02:00 76 18 89/60 99 09/09/17 01:00 79 16 94/62 97 09/09/17 00:00 98.7 F 71 18 78/54 09/08/17 23:00 71 18 84/55 99 09/08/17 22:00 73 18 100/70 100 09/08/17 21:00 83 18 97/74 98 09/08/17 20:00 97.6 F 80 16 95/69 97 09/08/17 19:45 80 17 102/90 100 09/08/17 19:30 76 17 109/81 100 09/08/17 19:15 61 19 71/57 99 09/08/17 19:00 64 13 67/55 95 09/08/17 18:02 68 18 87/54 09/08/17 17:52 97.6 F 66 18 81/65 96 09/08/17 17:05 67 17 84/72 98 09/08/17 17:01 67 84/72 94 09/08/17 16:51 61 13 81/63 77 L 09/08/17 16:46 67 16 67/53 94 09/08/17 16:31 65 16 79/39 100 09/08/17 16:16 65 16 92/50 99 09/08/17 16:11 64 18 72/62 94 09/08/17 16:09 66 20 72/62 100 09/08/17 15:54 64 10 L 85/62 96 09/08/17 15:46 65 19 125/101 92 09/08/17 15:41 65 14 78/61 96 09/08/17 15:40 64 11 L 95 09/08/17 14:56 64 16 87/65 100 09/08/17 14:31 62 18 87/65 84 L 09/08/17 14:16 64 15 77/60 86 L 09/08/17 14:08 64 14 78/58 82 L 09/08/17 14:03 65 16 69/59 94 09/08/17 13:01 64 24 H 82/62 94 09/08/17 12:58 66 19 82/61 95 09/08/17 12:27 65 10 L 126/96 98 09/08/17 12:10 96.7 F L 64 16 67/37 97 Intake and Output 09/08/17 09/09/17 09/09/17 21:59 05:59 13:59 Intake Total 2246 / 2246 804 / 804 Balance 2246 / 2246 804 / 804 Intake: IV 2246 / 2246 704 / 704 Sodium Chloride 0.9% 2,000 ml @ 1999 / 1999 Wide Open IV .Q0M ONE Rx#: [id number] Levophed 16 mg In Sodium 12 / Chloride 0.9% 234 ml @ 10 MCG/ MIN 9.37 mls/hr IV Q24H BLAZE Rx# :[id number] Zosyn 2.25 gm In Dextrose 5% in 50 / 50 Water 50 ml @ 100 mls/hr IV Q12H BLAZE Rx#:[id number] Potassium Chloride 20 Meq In 110 / 110 Dextrose 5% in Water 100 ml @ 55 mls/hr IV ONCE ONE Rx#: [id number] Potassium Chloride 20 Meq In 228 / 228 32 / 32 Dextrose 5% in Water 250 ml @ 130 mls/hr IV ONCE ONE Rx#: [id number] Oral 100 / 100 Other: Weight 180 lb 194 lb 0.64 oz Intake & Output: Intake & Output 09/08/17 09/09/17 09/09/17 21:59 05:59 13:59 Intake Total 2245 804 / 804 Balance 2245 804 / 804 Weight 180 lb 194 lb 0.64 oz Intake: IV 2245 704 / 704 Sodium Chloride 0.9% 2,000 ml @ 1999 / 1999 Wide Open IV .Q0M ONE Rx#: [id number] Levophed 16 mg In Sodium 12 / Chloride 0.9% 234 ml @ 10 MCG/ MIN 9.37 mls/hr IV Q24H COUNTS INCLUDE 234 BEDS AT THE [facility] Rx# :[id number] Zosyn 2.25 gm In Dextrose 5% in 50 / 50 Water 50 ml @ 100 mls/hr IV Q12H COUNTS INCLUDE 234 BEDS AT THE [facility] Rx#:[id number] Potassium Chloride 20 Meq In 110 / 110 Dextrose 5% in Water 100 ml @ 55 mls/hr IV ONCE ONE Rx#: [id number] Potassium Chloride 20 Meq In 228 / 228 32 / 32 Dextrose 5% in Water 250 ml @ 130 mls/hr IV ONCE ONE Rx#: [id number] Oral 100 / 100 - General Appearance General appearance: fatigue, frail EENT: mucous membranes dry Neck: supple Respiratory: clear Cardiology: edema Gastrointestinal: no tenderness Integumentary: no rash, warm and dry Neurologic: no focal deficit, alert and oriented x3 Musculoskeletal: no erythema Psychiatric: mood/affect appropriate, cooperative - Lab 09/09/17 04:00 09/09/17 04:00 Most recent lab results Calcium 8.9 mg/dl (8.6-10.4) 09/09/17 04:00 Phosphorus 3.9 mg/dL (2.7-4.5) 09/09/17 04:00 Magnesium 1.9 mg/dL (1.6-2.5) 09/09/17 04:00 Assessment and Plan (1) ESRD (end stage renal disease) on dialysis Chronic hemodialysis through left arm AV fistula, at [facility], on TTS, followed by Dr Valentin. Missed her scheduled dialysis on 09/08/17. Hemodialysis today. Status: Chronic Priority: Medium (2) Anasarca Associated with hypotension now requiring IV pressors. No obvious acute medical problem causing shock so far. Echocardiogram pending. No UF with dialysis today. Status: Acute Priority: Medium (3) Anemia due to end stage renal disease Status: Chronic Priority: Medium (4) Secondary hyperparathyroidism of renal origin Status: Chronic Priority: Medium
--- NOTE | 2017-09-09 07:32 | Cat Scan Report ---
CLINICAL INFORMATION: History of renal failure. Abdominal pain with nausea and vomiting COMPARISON: Plain film examination dated September 08, 2017. Previous CT scan dated 05/14/2017 TECHNIQUE: Axial images were obtained through the abdomen and pelvis. Sagittally and coronally reformatted images. 70 mL contrast material injected intravenously. Oral contrast material was not administered FINDINGS: Small to moderate left pleural effusion. There is bilateral lower lobe pulmonary parenchymal density probably secondary to volume loss. There is a small pericardial effusion. This measures approximately 6 mm in thickness. There is ascitic fluid. There is dilatation of the stomach and duodenum. Patient has apparently had a prior partial small bowel resection with surgical clips in the proximal jejunum. There is a transition point at this surgical location and mechanical small bowel obstruction. A well-defined discrete mass is not identified. Appearance is consistent with postsurgical adhesions. No evidence for closed loop obstruction. There is no pneumoperitoneum. No pneumatosis. No biliary or portal venous gas. There is calcification of the abdominal aorta. Celiac trunk and superior mesenteric artery are normal. No stenosis. Liver is negative. No focal mass. Liver contour is smooth. No evidence for cirrhosis. Gallbladder is present. No calcified gallstones. No dilated bile ducts. Spleen is not enlarged. Pancreas is negative. No pancreatic mass. No evidence for pancreatitis. There is a left adrenal nodule. This measures 2.0 x 1.8 cm. This was present on previous abdominal CT scan dated 05/14/2017. Kidneys are severely atrophic with multiple calcifications. This is unchanged. Urinary bladder is essentially collapsed Uterus is not identified. No adnexal mass. No colonic abnormality. No detectable mass. No diverticulitis. No evidence for appendicitis. No lumbar compression fractures. Appearance is consistent with osteoporosis or osteopenia. Sacrum is negative. No insufficiency fracture. No pelvic fracture. There is extensive and diffuse subcutaneous edema. No soft tissue mass. IMPRESSION: 1. Mechanical small bowel obstruction within the proximal jejunum. 2. Findings consistent with previous small bowel resection. There is a transition point with obstruction at the anastomosis. Postsurgical effusion suspected 3. Left adrenal nodule, unchanged 4. Left pleural effusion. Small pericardial effusion. Free intraperitoneal fluid. Extensive subcutaneous edema The exam was performed using radiation dose optimization techniques including, but not limited to, automated exposure control, adjustment of the mA and/or kV according to patient size and use of iterative reconstruction technique. Interpreted and Authenticated by: Fortino Hernandez 09/09/17
[2017-09-09] MEDS: PIPERACILLIN SODIUM/TAZOBACTAM 2.25 GM in DEXTROSE 5% IN WATER 50 ML IV SCH ×2 (07:58→19:47)
[2017-09-09 08:53] LABS: Vancomycin,Random 15.2 ug/mL
[2017-09-09] MEDS ORDERED: SENNOSIDES 1 TABLET PO SCH (09:00)
[2017-09-09] MEDS: FLUoxetine HCL 20 MG CAPSULE PO SCH (09:45)
[2017-09-09] MEDS: MIDODRINE 5 MG TABLET PO SCH ×3 (09:46→17:01)
[2017-09-09] MEDS: HEPARIN 5,000 UNIT/ML VIAL SQ SCH ×2 (09:46→21:16)
[2017-09-09] MEDS: CLOPIDOGREL 75 MG TABLET PO SCH (09:46)
[2017-09-09] MEDS: ARIPIPRAZOLE 2 MG PO SCH (10:44)
--- NOTE | 2017-09-09 12:10 | Internal Med Progress Note ---
Medical - PN: Subj Patient information: Note initiated : 09/09/17 at 12:06 pm Service Date, if different from initiated Date: [] Patient: Naz Joseph 72 y/o F admitted on 09/08/17 for Hypotension. Chief Complaint: [] Interval history: Ms. Joseph is a 72 year old Female with h/o end-stage renal disease on dialysis follows with Dr. REAGAN, the patient presents to the emergency room after being sent from dialysis to the ER for low blood pressure. According to the patient she has not been well for the last 2 weeks. She has been weak, she fell down reports this as a mechanical fall and injured the right side of the knee. She developed a wound for which she has been followed by the wound care clinic. According to the patient history the swab taken from that wound was growing MRSA, patient is on Bactrim and Keflex for same. The patient has been having ongoing diarrhea for approximately last 1 week liquid watery dark green 4-5 episodes every day, she has been getting weaker and more fatigued. She has had decreased appetite and has not been eating or drinking very well. She also admits to be having some nausea. The patient reports that she is not able to ambulate well and finds it difficult to even get up and move around. She presented for dialysis at which point in time she was noted to have low blood pressures with systolic in 70s, he was therefore sent to the emergency room for further evaluation. The patient also notes that she has subjective sensations of chills and intermittent shakes which have been progressively getting worse over the last weeks. Has any documented fever, has chronic headaches worse now, no dizziness , no changes in vision, has dry mouth no difficulty in swallowing no changes in hearing, no neck swelling or lymphadenopathy no bleeding. She has shortness of breath on exertion which is far worse than her baseline. She denies any chest pain, has nausea no abdominal pain she had diarrhea over the last 1 week. The patient denies any acute joint swelling or joint pain besides the right knee. In the emergency room the patient was afebrile, heart rate 67 blood pressure 78/ 61, saturating 98% on room air, White blood cell count was 8.8 hemoglobin 12.9 platelets 155, sodium 138, potassium 2.9, bicarbonate 29 creatinine 4.6 glucose level was 81. The patient's x-ray of the abdomen showed possible small bowel obstruction, CT scan of the abdomen was done with contrast after consultation with nephrology and was tentatively reported as small bowel obstruction. Dr. Ricketts the general surgeon was consulted from the emergency room. He would be seeing the patient. The patient's right knee had an ulcer with erythema extending on the anterior aspect of the knee, on my exam there was fluctuation likely infected bursitis Given low blood pressure, which remained low despite 2 L of fluid resuscitation possible abscess, small bowel obstruction the patient has been admitted to the ICU for further management. September 09 Patient seen examined, feeling better, on Levophed, patient has no acute complaints, appreciate help from surgery as well as nephrology. X-ray abdomen repeated today. Patient is scheduled for dialysis today. Central line placed yesterday, CVP is elevated at 15-18. Echo ordered. Pertinent ROS: Denies headache, dizziness Denies chest pain, palpitations Denies cough or shortness of breath Denies abdominal pain, nausea or vomiting. - Constitutional Vitals: Vital Signs Temp Pulse Resp BP Pulse Ox 99.4 F H 79 19 98/69 99 09/09/17 07:00 09/09/17 11:08 09/09/17 11:08 09/09/17 11:01 09/09/17 11:08 Period Temp Pulse Resp BP Sys/Millan Pulse Ox Last 24 Hr 96.7 F-99.4 F 61-83 10-26 67-126/37-101 77-100 Intake and Output 09/08/17 09/09/17 09/09/17 21:59 05:59 13:59 Intake Total 2245 / 6 804 / 804 50 / 50 Balance 224 / 6 804 / 804 50 / 50 Weight 180 lb 194 lb 0.64 oz Intake & Output: Intake & Output 09/08/17 09/09/17 09/09/17 21:59 05:59 13:59 Intake Total 224 / 2246 804 / 804 50 / 50 Balance 2246 / 2246 804 / 804 50 / 50 Weight 180 lb 194 lb 0.64 oz Intake: IV 2246 / 6 704 / 704 50 / 50 Sodium Chloride 0.9% 2,000 ml @ 1999 / 1999 Wide Open IV .Q0M ONE Rx#: [id number] Levophed 16 mg In Sodium Chloride 0.9% 234 ml @ 10 MCG/ MIN 9.37 mls/hr IV Q24H COUNTS INCLUDE 234 BEDS AT THE [facility] Rx# :[id number] Zosyn 2.25 gm In Dextrose 5% in 50 / 50 50 / 50 Water 50 ml @ 100 mls/hr IV Q12H COUNTS INCLUDE 234 BEDS AT THE [facility] Rx#:[id number] Potassium Chloride 20 Meq In 110 / 110 Dextrose 5% in Water 100 ml @ 55 mls/hr IV ONCE ONE Rx#: [id number] Potassium Chloride 20 Meq In 228 / 228 32 / 32 Dextrose 5% in Water 250 ml @ 130 mls/hr IV ONCE ONE Rx#: [id number] Oral 100 / 100 Exam: Constitutional; Afebrile, cooperative, alert, not in distress. Eyes- No icterus, , No periorbital swelling Ears- Ext ear normal, hearing normal to conversation. Neck- Midline trachea, supple Respiratory system: Air Entry equal on both sides, No crackles or wheezing, no rhonchi. CVS- Rate rhythm regular, S1,S2 heard, no gallop, no rub. Abdomen- Soft nontender abdomen, no organomegaly, no tenderness, no guarding or rigidity, [employer]ING [employer]- AOOx3, moving all extremities, no gross focal deficit noted. Medical - PN: Obj Da - Labs CBC & Chem 7: 09/09/17 04:00 09/09/17 04:00 Labs: Abnormal Lab Results 09/09/17 09/09/17 09/08/17 04:00 04:00 13:05 RBC 3.30 L MCV 114.8 H MCH 37.6 H RDW 21.3 H MPV 11.6 H [place] # (Auto) 1.0 H Potassium 2.9 L* Chloride 95 L 90 L Anion Gap 20.0 H 19.0 H Creatinine 4.4 H 4.6 H Total Protein 5.6 L Albumin 3.0 L Amylase 27 L 09/08/17 13:05 RBC 3.41 L MCV 113.8 H MCH 37.8 H RDW 19.2 H MPV 11.4 H [place] # (Auto) Potassium Chloride Anion Gap Creatinine Total Protein Albumin Amylase Meds: Medications Acetaminophen (Tylenol) 650 mg PO Q4-6HP PRN PRN Reason: PAIN/FEVER > 101 Clopidogrel Bisulfate (Plavix) 75 mg PO DAILY COUNTS INCLUDE 234 BEDS AT THE [facility] Last Admin: 09/09/17 09:46 Dose: 75 mg Dextrose (Dextrose 50%) 0 ml IV UD PRN PRN Reason: Hypoglycemia Last Admin: 09/09/17 01:10 Dose: 25 ml Diagnostic Test (Pha) (Accu-Chek) 1 each FS Q6 COUNTS INCLUDE 234 BEDS AT THE [facility] Last Admin: 09/09/17 06:11 Dose: 1 each Famotidine (Pepcid) 20 mg IV HS COUNTS INCLUDE 234 BEDS AT THE [facility] Last Admin: 09/08/17 21:28 Dose: 20 mg Fludrocortisone Acetate (Florinef) 0.05 mg PO Q48H BLAZE Fluoxetine HCl (Prozac) 40 mg PO DAILY COUNTS INCLUDE 234 BEDS AT THE [facility] Last Admin: 09/09/17 09:45 Dose: 40 mg Heparin Sodium (Porcine) (Heparin) 5,000 unit SQ Q12 COUNTS INCLUDE 234 BEDS AT THE [facility] Last Admin: 09/09/17 09:46 Dose: 5,000 unit Hydromorphone HCl (Dilaudid) 2 mg PO Q8HP PRN PRN Reason: Pain Norepinephrine Bitartrate 16 (mg/ Sodium Chloride) 250 mls @ 9.37 mls/hr IV Q24H COUNTS INCLUDE 234 BEDS AT THE [facility]; 10 MCG/MIN PRN Reason: Protocol Last Titration: 09/09/17 00:05 Dose: 8 mcg/min, 7.5 mls/hr Piperacillin Sod/Tazobactam (Sod 2.25 gm/ Dextrose) 50 mls @ 100 mls/hr IV Q12H COUNTS INCLUDE 234 BEDS AT THE [facility] Last Infusion: 09/09/17 08:30 Dose: Infused Vancomycin HCl 1,250 mg/ (Sodium Chloride) 500 mls @ 333.3 mls/hr IV ONCE@1600 ONE Stop: 09/09/17 17:30 Insulin Human Lispro (Humalog) 0 unit SQ Q6 BLAZE PRN Reason: Protocol Last Admin: 09/09/17 06:12 Dose: Not Given Lorazepam (Ativan) 0.5 mg IV Q4HP PRN PRN Reason: Anxiety Midodrine (Midodrine Hcl) 10 mg PO TID@0800,1200,1700 COUNTS INCLUDE 234 BEDS AT [facility] Last Admin: 09/09/17 09:46 Dose: 10 mg Aripiprazole [ Aripiprazole] 2 Mg Tablet 2 mg PO QDAY COUNTS INCLUDE 234 BEDS AT [facility] Last Admin: 09/09/17 10:44 Dose: Not Given Senna (Senokot) 2 tab PO BID COUNTS INCLUDE 234 BEDS AT [facility] Last Admin: 09/09/17 10:48 Dose: 2 tab Sodium Chloride (Saline Flush) 10 ml IV Q8 COUNTS INCLUDE 234 BEDS AT THE [facility] Last Admin: 09/09/17 06:13 Dose: 10 ml Sodium Chloride (Saline Flush) 10 ml IV Q12 COUNTS INCLUDE 234 BEDS AT THE [facility] Last Admin: 09/09/17 10:00 Dose: 10 ml Trazodone HCl (Desyrel) 250 mg PO HS BLAZE Vancomycin HCl (Vancomycin Per Pharmacy) 1 order IV UD COUNTS INCLUDE 234 BEDS AT THE [facility] Medical - PN: A/P - Time Spent With Patient Total time spent is greater than 50% in coordination of care (as documented) at patient's floor/unit and/or counseling patient: - Narrative A/P Narrative: A/P Hypotension : despite 2 L fluids, likely from dehydration and infection, treat underlying infection, IV fluids, central line placed. Usually takes midodrine at home, but this time despite 2 doses, bp remained low. Small bowel obstruction: No NG placed, serial X ray, DR Ricketts following, Diarrhea: check for Cdiff, no diarrhea yet to send stool Right knee bursitis/ Open wound: Possibly infected bursits vs hematoma vs reactionary swelling , get X Ray of the knee is reported negative, on IV ABX Wound, Knee/ elbow: Patient is growing mrsa in same,follows with wound clinic as outpatient, presently on vancomycin and zosyn Hypokalemia: due to poor oral intake, monitor for now, Pt is ESRD on HD, will replace after central line placed. K better today ESRD on HD, followed by Dr Reagan, pt is being followed by Misa for now, HD planned for today. COPD: No wheezing on exam to continue bronchodilators, neg cxr for pna Fibromyalgia/ Chr pain: Resume home meds once verified. CAD no chest pain, on plavix, continue same, not on statin? intolerant? DVT hep sq Diet NPO for now DNR code status.
--- NOTE | 2017-09-09 12:27 | General Surgery Progress Note ---
Subjective Patient reports: feels better, pain is less, flatus, no bowel movement, nausea, afebrile Narrative: Note initiated : 09/09/17 at 12:23 pm Service Date, if different from initiated Date: [] Patient: Naz Joseph 72 y/o F admitted on 09/08/17 for Hypotension. Chief Complaint: [Patient states that she feels much better. She actually looks more alert and stronger. She is fully alert and awake and aware. She denies having abdominal pain. She has had flatus but no bowel movement. She has not had any increase in her right knee and there has not been any increased drainage. She denies nausea at this time. She is presently on Levophed for blood pressure support and will have dialysis in a few minutes which will last for 4 hours. Discussed with patient that while she is on dialysis that I will order a small bowel follow-through. This will verify that she indeed does not have a small bowel obstruction.] Objective Temp Pulse Resp BP Pulse Ox 99.4 F H 79 19 98/69 99 09/09/17 07:00 09/09/17 11:08 09/09/17 11:08 09/09/17 11:01 09/09/17 11:08 - Additional Data Intake & Output - Last 24 hours: Intake & Output 09/07/17 09/08/17 09/09/17 09/10/17 05:59 05:59 05:59 05:59 Intake Total 3050 / 3050 50 / 50 Balance 3050 / 3050 50 / 50 Weight 194 lb 0.64 oz - General physical appearance no distress, no pain, chronically ill, obese, other (Major anasarca) - Eyes PERRL, normal ocular movement - ENT normal pinna, normal nares, normal mucosa, no hearing loss, no congestion - Neck no masses, no bruits, trachea midline, no lymphadectomy, no venous distension - Respiratory normal expansion, normal respiratory effort, clear to percussion, clear to auscultation, other (Lungs actually clear anteriorly and laterally) - Cardiovascular Cardiovascular exam: Present: normal rate and rhythm, RRR, +S1, +S2. Absent: JVD - Abdomen non tender (Patient no longer has tenderness in the hypogastrium. She has good active bowel sounds. She does not have significant distention), bowel sounds ( present), surgical scars (none), masses (none) - Integumentary other (The chronic bruises and abrasions are unchanged) - Neurologic normal coordination, normal sensation - Musculoskeletal other (Gait and stance not tested) - Psychiatric oriented to time, oriented to person, oriented to place, speech is normal, memory intact - Labs 09/09/17 04:00 09/09/17 04:00 Diabetes panel 09/08/17 09/09/17 Range/Units 13:05 04:00 Sodium 138 139 (133-145) mmol/L Potassium 2.9 L* 3.3 (3.3-5.1) mmol/L Chloride 90 L 95 L (96-108) mmol/L Carbon Dioxide 29 24 (22-30) mmol/L BUN 18 19 (8-23) mg/dl Creatinine 4.6 H 4.4 H (0.6-1.1) mg/dl Glucose 81 81 (70-105) mg/dL Calcium 9.6 8.9 (8.6-10.4) mg/dl AST 15 12 (0-37) U/l ALT 10 8 (0-40) U/l Alkaline Phosphatase 73 64 (39-117) U/L Total Protein 6.4 5.6 L (5.9-8.4) gm/dL Albumin 3.6 3.0 L (3.2-5.2) gm/dL Triglycerides 96 (<150) mg/dl Calcium panel 09/08/17 09/09/17 Range/Units 13:05 04:00 Calcium 9.6 8.9 (8.6-10.4) mg/dl Phosphorus 3.9 (2.7-4.5) mg/dL Albumin 3.6 3.0 L (3.2-5.2) gm/dL Pituitary panel 09/08/17 09/09/17 Range/Units 13:05 04:00 Sodium 138 139 (133-145) mmol/L Potassium 2.9 L* 3.3 (3.3-5.1) mmol/L Chloride 90 L 95 L (96-108) mmol/L Carbon Dioxide 29 24 (22-30) mmol/L BUN 18 19 (8-23) mg/dl Creatinine 4.6 H 4.4 H (0.6-1.1) mg/dl Glucose 81 81 (70-105) mg/dL Calcium 9.6 8.9 (8.6-10.4) mg/dl Adrenal panel 09/08/17 09/09/17 Range/Units 13:05 04:00 Sodium 138 139 (133-145) mmol/L Potassium 2.9 L* 3.3 (3.3-5.1) mmol/L Chloride 90 L 95 L (96-108) mmol/L Carbon Dioxide 29 24 (22-30) mmol/L BUN 18 19 (8-23) mg/dl Creatinine 4.6 H 4.4 H (0.6-1.1) mg/dl Glucose 81 81 (70-105) mg/dL Calcium 9.6 8.9 (8.6-10.4) mg/dl Total Bilirubin 0.5 0.5 (0.0-1.0) mg/dL AST 15 12 (0-37) U/l ALT 10 8 (0-40) U/l Alkaline Phosphatase 73 64 (39-117) U/L Total Protein 6.4 5.6 L (5.9-8.4) gm/dL Albumin 3.6 3.0 L (3.2-5.2) gm/dL Assessment and Plan (1) Chronic diarrhea Status: Acute Assessment and plan: Patient has not had diarrhea since admission. She does not have abdominal pain. Current Visit: Yes (2) Nausea and vomiting Status: Acute Assessment and plan: She has not had nausea or vomiting since admission. Abdominal x-rays shows a paucity of gas in her small bowel and colon. Will get small bowel follow- through Current Visit: Yes (3) Anasarca Status: Acute Current Visit: Yes (4) Hypotension Status: Acute Assessment and plan: Presently being supported with levo fed Current Visit: Yes (5) ESRD (end stage renal disease) on dialysis Status: Chronic Assessment and plan: Schedule for hemodialysis later this morning Current Visit: Yes (6) Ulcer of right knee Status: Acute Assessment and plan: Ulceration is unchanged and there is no evidence of acute inflammation at this time Current Visit: Yes - Time Spent With Patient Total time spent is greater than 50% in coordination of care (as documented) at patient's floor/unit and/or counseling patient:
[2017-09-09] MEDS: ACETAMINOPHEN 325 MG TABLET PO PRN (13:10)
[2017-09-09] MEDS ORDERED: VANCOMYCIN 1,250 MG in 0.9 % SODIUM CHLORIDE 500 ML IV ONE (16:00)
[2017-09-09] MEDS: SEVELAMER 800 MG TABLET PO SCH (17:49)
[2017-09-09] MEDS: NOREPINEPHRINE BITARTRATE 16 MG in 0.9 % SODIUM CHLORIDE 234 ML IV SCH (21:00)
[2017-09-09] MEDS: HYDROmorphone 2 MG TABLET PO PRN (21:15)
[2017-09-09] MEDS: FAMOTIDINE/PF 20 MG/2 ML VIAL IV SCH (21:15)
[2017-09-09] MEDS: metroNIDAZOLE 500 MG TABLET PO SCH (21:15)
[2017-09-09] MEDS: traZODone HCL 50 MG TABLET PO SCH (21:15)
[2017-09-09] MEDS: SENNOSIDES 1 TABLET PO SCH (21:17)
[2017-09-09] MEDS: BUDESONIDE 0.5 MG/2 ML AMPUL.NEB NEB SCH (22:13)
[2017-09-10] MEDS: INSULIN LISPRO 1 UNIT/0.01 ML UNIT SQ SCH ×4 (00:29→17:47)
[2017-09-10 05:18] LABS: ALT/SGPT 9 U/l (0-40); Albumin 2.9 gm/dL (3.2-5.2); Albumin/Globulin Ratio 1.1 (1.0-2.3); Alkaline Phosphatase 62 U/L (39-117); Bilirubin,Direct 0.3 mg/dL (0.0-0.3); Blood Urea Nitrogen 13 mg/dl (8-23); Gamma Glutamyl Transpeptidase 16 U/L (5-36); Uric Acid 5.5 mg/dL (2.5-8.0)
[2017-09-10 05:41] LABS: Basophils # (Auto) 0.1 K/mcL (0.0-0.3); Basophils % (Auto) 0.6 % (0.0-2.0); Eosinophils # (Auto) 0.4 K/mcL (0.0-0.7); Eosinophils % (Auto) 4.1 % (0.0-7.0); Granulocytes % (Auto) 69.7 % (38.0-78.0); Lymphocytes # (Auto) 1.8 K/mcL (1.5-4.8); Lymphocytes % (Auto) 17.2 % (15.5-49.0); Mean Cell Volume 115.3 fL (80.0-100.0); Mean Corpuscular HGB Conc 32.5 g/dL (31.0-36.0); Mean Corpuscular Hemoglobin 37.5 pg (26.0-34.0); Monocytes # (Auto) 0.9 K/mcL (0.1-0.9); Monocytes % (Auto) 8.4 % (1.0-12.0); Platelet Count 152 K/mcL (140-440); RBC 3.29 M/mcL (4.00-5.20); Red Cell Distribution Width 20.9 % (11.5-14.5)
[2017-09-10] MEDS: 0.9 % SODIUM CHLORIDE 10 ML SYRINGE IV SCH ×6 (06:02→21:16)
[2017-09-10] MEDS: metroNIDAZOLE 500 MG TABLET PO SCH (06:15)
[2017-09-10] MEDS: NOREPINEPHRINE BITARTRATE 16 MG in 0.9 % SODIUM CHLORIDE 234 ML IV SCH ×2 (06:18→18:03)
--- NOTE | 2017-09-10 06:43 | Nephrology Progress Note ---
Subjective Patient information: Note initiated : 09/10/17 at 6:41 am Naz Joseph is an [id number] female with end stage renal disease on chronic hemodialysis (through left arm AV fistula, at [facility], on TTS, followed by Dr Valentin), chronic anemia due to chronic kidney disease, secondary hyperparathyroidism, history of gout, coronary artery disease, presented for her scheduled dialysis on 09/08/17. She was hypotensive (71/54) despite 2 doses of Midodrine at home on arrival to dialysis unit and sent to ED and admitted. She is in ICU on IV pressors. Chief complaint: Weakness. Principal diagnosis: End stage renal disease on chronic hemodialysis Interval history: In ICU on IV pressors. Diagnosed with C diff colitis. Pertinent ROS: Weakness. Anorexia. Abdominal pain. Diarrhea. Edema. Objective - Vital Signs Vital signs: Vital Signs Temp Pulse Pulse Resp BP BP Pulse Ox 09/10/17 06:01 74 21 87/67 99 09/10/17 05:01 73 18 96/66 99 09/10/17 04:01 75 22 80/59 98 09/10/17 03:01 74 19 97/66 96 09/10/17 02:01 72 24 H 81/56 96 09/10/17 01:33 98 09/10/17 01:01 74 18 91/63 98 09/10/17 00:01 98.2 F 75 19 88/66 98 09/09/17 23:01 74 17 87/60 95 09/09/17 22:31 74 19 82/59 98 09/09/17 22:14 78 13 09/09/17 22:01 75 17 81/57 96 09/09/17 21:46 77 19 79/64 98 09/09/17 21:31 80 20 89/64 98 09/09/17 21:16 74 19 93/67 98 09/09/17 21:01 74 19 94/66 99 09/09/17 21:00 74 19 99 09/09/17 20:46 75 24 H 97/65 99 09/09/17 20:31 78 17 99/71 99 09/09/17 20:16 77 20 90/66 98 09/09/17 20:01 97.7 F 78 17 99/68 99 09/09/17 20:00 77 23 H 99 03/25/18 19:46 24 H 97/79 03/25/18 19:31 75 21 99/68 100 03/25/18 19:16 80 24 H 98/72 98 /25/18 19:01 77 20 96/67 100 /25/18 18:46 78 17 96/70 100 /25/18 18:31 92 H 20 103/70 99 03/25/18 18:16 75 28 H 85/56 93 09/09/18 18:01 78 25 H 96/71 100 25/18 18:00 76 22 100 03/25/18 17:31 81 19 92/63 100 /25/18 17:16 84 13 103/91 97 /25/18 17:01 82 17 86/66 100 09/09/18 16:46 80 19 97/72 98 //18 16:32 98 F 80 86/60 25/18 16:31 79 19 86/60 100 /25/18 16:17 76 91/67 09/09/18 16:04 77 86/62 25/18 16:01 98.2 F 75 21 86/62 100 /25/18 15:34 79 90/67 03/25/18 15:31 79 25 H 90/67 99 //18 15:02 79 82/65 03/25/18 15:01 79 19 82/65 100 //18 14:47 79 99/65 //18 14:46 79 20 99/65 100 //18 14:35 80 98/86 09/09/18 14:30 100 09/09/18 14:19 76 98/62 //18 14:00 80 79 20 105/71 105/71 98 /25/18 13:51 76 22 98 /25/18 13:50 75 22 98 /25/18 13:49 75 22 98 /25/18 13:48 75 18 98 /25/18 13:47 75 20 99 /25/18 13:46 74 21 99/67 98 /25/18 13:45 77 24 H 98 /25/18 13:44 76 17 100 /25/18 13:43 78 19 86/68 97 /25/18 13:42 78 17 97 /25/18 13:41 78 21 97 03/25/18 13:40 96.8 F L 77 19 86/68 96 18 13:39 75 17 96 18 13:38 77 17 97 18 13:37 78 18 95 18 13:36 78 19 98 18 13:35 78 18 100 18 13:34 78 21 99 18 13:33 78 23 H 97 18 13:32 78 22 96 18 13:31 79 17 96 18 13:30 78 23 H 97 18 13:29 79 19 96 18 13:28 78 21 95 18 13:27 80 20 97 09/09/17 13:26 79 21 95 18 13:25 79 15 98 09/09/17 13:24 79 23 H 95 09/09/17 13:23 79 23 H 96 09/09/17 13:22 79 25 H 96 09/09/17 13:21 79 14 97 09/09/17 13:20 78 17 97 09/09/17 13:19 79 17 98 18 13:18 78 17 97 18 13:17 78 15 97 09/09/17 13:16 79 17 99 09/09/17 13:15 78 21 98 18 13:14 78 18 98 09/09/17 13:07 78 16 98 18 13:00 19 89/62 96 09/09/17 12:00 98.2 F 19 101/70 100 18 11:08 79 19 99 18 11:07 78 20 100 18 11:06 26 H 09/09/17 11:05 21 18 11:04 17 09/09/17 11:01 20 98/69 99 18 10:52 81 18 100 18 10:51 81 20 98 18 10:50 80 21 98 18 10:49 80 19 99 18 10:48 80 24 H 99 18 10:00 18 98/69 99 18 09:00 21 96/69 97 09/09/17 08:00 21 94/61 97 09/09/17 07:00 99.4 F H 22 98/64 96 Intake and Output 09/09/17 09/10/17 09/10/17 21:59 05:59 13:59 Intake Total 50 / 50 220 / 220 Output Total 0 / 0 400 / 400 Balance 50 / 50 -180 / -180 Intake: IV 50 / 50 220 / 220 Levophed 16 mg In Sodium 220 / 220 Chloride 0.9% 234 ml @ 10 MCG/ MIN 9.37 mls/hr IV Q24H BLAZE Rx# :[id number] Zosyn 2.25 gm In Dextrose 5% in 50 / 50 Water 50 ml @ 100 mls/hr IV Q12H BLAZE Rx#:[id number] Oral 0 / 0 Output: Void Amount 0 / 0 Stool 400 / 400 Hemodialysis UF 0 / 0 Other: Stool Size Copious Stool Color Brown Brown Green Green Stool Consistency Liquid Liquid # of times incontinent of 1 Bowels Weight 190 lb 1.28 oz Intake & Output: Intake & Output 09/09/17 09/10/17 09/10/17 21:59 05:59 13:59 Intake Total 50 / 50 220 / 220 Output Total 0 / 0 400 / 400 Balance 50 / 50 -180 / -180 Weight 190 lb 1.28 oz Intake: IV 50 / 50 220 / 220 Levophed 16 mg In Sodium 220 / 220 Chloride 0.9% 234 ml @ 10 MCG/ MIN 9.37 mls/hr IV Q24H BLAZE Rx# :[id number] Zosyn 2.25 gm In Dextrose 5% in 50 / 50 Water 50 ml @ 100 mls/hr IV Q12H BLAZE Rx#:[id number] Oral 0 / 0 Output: Void Amount 0 / 0 Stool 400 / 400 Hemodialysis UF 0 / 0 Other: Stool Size Copious Stool Color Brown Brown Green Green Stool Consistency Liquid Liquid # of times incontinent of 1 Bowels - General Appearance General appearance: chronically ill, fatigue, frail EENT: mucous membranes dry Neck: supple Respiratory: clear Cardiology: edema Gastrointestinal: tenderness Integumentary: warm and dry Neurologic: no focal deficit Musculoskeletal: no erythema, no cyanosis Psychiatric: mood/affect appropriate, cooperative - Lab 09/10/17 04:00 09/10/17 04:00 Most recent lab results Calcium 8.8 mg/dl (8.6-10.4) 09/10/17 04:00 Phosphorus 3.6 mg/dL (2.7-4.5) 09/10/17 04:00 Magnesium 1.9 mg/dL (1.6-2.5) 09/10/17 04:00 Assessment and Plan (1) ESRD (end stage renal disease) on dialysis Chronic hemodialysis through left arm AV fistula, at [facility], on TTS, followed by Dr Valentin. Missed her scheduled dialysis on 09/08/17. Last hemodialysis on 09/09/17. Hemodialysis today with 3 kg UF goal. Status: Chronic Priority: Medium (2) Anasarca Associated with hypotension now requiring IV pressors associated to acute C diff infection. Echocardiogram pending. Hemodialysis today with 3 kg UF goal. Status: Acute Priority: Medium (3) Anemia due to end stage renal disease Status: Chronic Priority: Medium (4) Secondary hyperparathyroidism of renal origin Status: Chronic Priority: Medium (5) Hypokalemia KCl 20 mEq IV x 1 ordered. Status: Acute Priority: Medium (6) Septic shock due to Clostridium difficile Managed by hospitalist team. Status: Acute Priority: High
[2017-09-10] MEDS: PIPERACILLIN SODIUM/TAZOBACTAM 2.25 GM in DEXTROSE 5% IN WATER 50 ML IV SCH (07:51)
[2017-09-10] MEDS: SEVELAMER 800 MG TABLET PO SCH ×3 (07:52→17:32)
[2017-09-10] MEDS ORDERED: POTASSIUM CHLORIDE 20 MEQ in DEXTROSE 5% IN WATER 100 ML IV ONE (08:00)
[2017-09-10] MEDS: MIDODRINE 5 MG TABLET PO SCH ×3 (08:05→17:32)
[2017-09-10] MEDS ORDERED: SENNOSIDES 1 TABLET PO SCH (09:00)
[2017-09-10] MEDS ORDERED: GENTAMICIN SULFATE 40 MG, CLINDAMYCIN 300 MG, BACITRACIN 25,000 UNIT in SODIUM CHLORIDE... IRR SCH (09:00)
[2017-09-10] MEDS ORDERED: FLUDROCORTISONE 0.1 MG TABLET PO SCH (09:00)
[2017-09-10] MEDS: BUDESONIDE 0.5 MG/2 ML AMPUL.NEB NEB SCH ×2 (09:29→20:15)
[2017-09-10] MEDS: CLOPIDOGREL 75 MG TABLET PO SCH (09:46)
[2017-09-10] MEDS: FLUoxetine HCL 20 MG CAPSULE PO SCH (09:46)
[2017-09-10] MEDS: CYANOCOBALAMIN (VITAMIN B-12) 500 MCG TABLET PO SCH (09:47)
[2017-09-10] MEDS: ARIPIPRAZOLE 2 MG PO SCH (09:47)
[2017-09-10] MEDS: HEPARIN 5,000 UNIT/ML VIAL SQ SCH ×2 (09:47→21:11)
[2017-09-10] MEDS: VANCOMYCIN ORAL SOL 1,000 MG/10 ML BOTTLE PO SCH ×4 (09:51→21:11)
[2017-09-10] MEDS: GENTAMICIN SULFATE 40 MG, CLINDAMYCIN 300 MG, BACITRACIN 25,000 UNIT in SODIUM CHLORIDE... IRR SCH ×2 (10:00→21:15)
[2017-09-10 10:38] LABS: Vancomycin,Random 20.4 ug/mL
--- NOTE | 2017-09-10 10:50 | XRay Report ---
CLINICAL INFORMATION: Abdominal pain and distention COMPARISON: 09/08/2017 FINDINGS: There is a paucity of gas seen in the upper small bowel including duodenum and jejunum. The mid and distal small bowel and colon remain decompressed. No free air or soft tissue mass IMPRESSION: High-grade proximal small bowel obstruction. Multiple small calcifications overlying the kidneys likely present small nonobstructing stones Interpreted and Authenticated by: Fortino Mendoza 09/10/17
--- NOTE | 2017-09-10 10:52 | XRay Report ---
CLINICAL INFORMATION: Small bowel obstruction COMPARISON: Plain film from 09/09/2017. TECHNIQUE: Single contrast barium was ingested and overhead films were obtained. FINDINGS: Only a single 30 minute film was submitted for interpretation. The stomach, duodenum and jejunum are moderately dilated with abrupt transition in the proximal jejunum into decompressed mid jejunum. Findings are compatible with a partial proximal jejunal obstruction. IMPRESSION: Partial obstruction of the proximal jejunum. Suspect stricture or adhesions. Interpreted and Authenticated by: Fortino Mendoza 09/10/17
--- NOTE | 2017-09-10 16:02 | General Surgery Progress Note ---
Subjective Patient reports: feels better, pain is less, tolerating liquids well, flatus, bowel movement, afebrile Narrative: Note initiated : 09/10/17 at 3:59 pm Service Date, if different from initiated Date: [] Patient: Naz Joseph 72 y/o F admitted on 09/08/17 for Hypotension/Small Bowel Obstruction. Chief Complaint: [Patient is stable. She had transit of contrast through her bowel and 30 minutes however the radiologist read his notes partial obstruction. This is because the stomach jejunum and duodenum are dilated and the distal bowel is of normal caliber. Only one film was done. She had major passage of stool within 30 minutes after ingesting the contrast ruling out significant obstruction. Patient has been started on clear liquids. Her C. difficile titer is positive and she has been started on oral vancomycin. She needed levo fed to complete her dialysis but was able to have a complete run. She does not complain of any abdominal pain at this time.] Objective Temp Pulse Resp BP Pulse Ox 97.5 F 80 19 97/64 100 09/10/17 14:26 09/10/17 14:26 09/10/17 14:01 09/10/17 14:26 09/10/17 14:30 - Additional Data Intake & Output - Last 24 hours: Intake & Output 09/08/17 09/09/17 09/10/17 09/11/17 05:59 05:59 05:59 05:59 Intake Total 3050 / 3050 1391 / 1391 965 / 965 Output Total 0 / 0 3000 / 3000 Balance 3050 / 3050 1391 / 1391 -2035 / -2035 Weight 194 lb 0.64 oz 190 lb 1.28 oz 190 lb 1.28 oz - General physical appearance well developed, well nourished, no distress, no pain - Eyes PERRL, normal ocular movement - ENT normal pinna, normal nares, normal mucosa, no hearing loss, no congestion - Neck no masses, no bruits, trachea midline, no lymphadectomy, no venous distension - Respiratory normal expansion, normal respiratory effort, clear to percussion, clear to auscultation - Cardiovascular Cardiovascular exam: Present: normal rate and rhythm, +S1, +S2. Absent: JVD - Abdomen soft, non tender, bowel sounds (present), surgical scars (none), masses (none), distended (No significant distention noted) - Integumentary no abnormal pigmentation, other (Extensive bruising and ecchymoses for multiple falls still noted but improving;) - Neurologic normal coordination, normal sensation - Musculoskeletal other (Swelling of the right knee is improved and there is no significant warmth in the area.) - Psychiatric oriented to time, oriented to person, oriented to place, speech is normal, memory intact - Labs 09/10/17 04:00 09/10/17 04:00 Diabetes panel 09/10/17 Range/Units 04:00 Sodium 139 (133-145) mmol/L Potassium 3.0 L (3.3-5.1) mmol/L Chloride 96 (96-108) mmol/L Carbon Dioxide 25 (22-30) mmol/L BUN 13 (8-23) mg/dl Creatinine 4.0 H (0.6-1.1) mg/dl Glucose 72 (70-105) mg/dL Calcium 8.8 (8.6-10.4) mg/dl AST 13 (0-37) U/l ALT 9 (0-40) U/l Alkaline Phosphatase 62 (39-117) U/L Total Protein 5.5 L (5.9-8.4) gm/dL Albumin 2.9 L (3.2-5.2) gm/dL Triglycerides 102 (<150) mg/dl Calcium panel 09/10/17 Range/Units 04:00 Calcium 8.8 (8.6-10.4) mg/dl Phosphorus 3.6 (2.7-4.5) mg/dL Albumin 2.9 L (3.2-5.2) gm/dL Pituitary panel 09/10/17 Range/Units 04:00 Sodium 139 (133-145) mmol/L Potassium 3.0 L (3.3-5.1) mmol/L Chloride 96 (96-108) mmol/L Carbon Dioxide 25 (22-30) mmol/L BUN 13 (8-23) mg/dl Creatinine 4.0 H (0.6-1.1) mg/dl Glucose 72 (70-105) mg/dL Calcium 8.8 (8.6-10.4) mg/dl Adrenal panel 09/10/17 Range/Units 04:00 Sodium 139 (133-145) mmol/L Potassium 3.0 L (3.3-5.1) mmol/L Chloride 96 (96-108) mmol/L Carbon Dioxide 25 (22-30) mmol/L BUN 13 (8-23) mg/dl Creatinine 4.0 H (0.6-1.1) mg/dl Glucose 72 (70-105) mg/dL Calcium 8.8 (8.6-10.4) mg/dl Total Bilirubin 0.6 (0.0-1.0) mg/dL AST 13 (0-37) U/l ALT 9 (0-40) U/l Alkaline Phosphatase 62 (39-117) U/L Total Protein 5.5 L (5.9-8.4) gm/dL Albumin 2.9 L (3.2-5.2) gm/dL Assessment and Plan (1) Chronic diarrhea Status: Acute Assessment and plan: Patient has not had diarrhea since admission. She does not have abdominal pain. C. difficile positive Current Visit: Yes (2) Nausea and vomiting Status: Acute Assessment and plan: patient has dilated proximal bowel but has transit of contrast within 30 minutes of ingestion ruling out major obstruction Current Visit: Yes (3) Anasarca Status: Acute Current Visit: Yes (4) Hypotension Status: Acute Assessment and plan: Presently being supported with levo fed Current Visit: Yes (5) ESRD (end stage renal disease) on dialysis Status: Chronic Assessment and plan: Schedule for hemodialysis later this morning Current Visit: Yes (6) Ulcer of right knee Status: Acute Assessment and plan: Ulceration is unchanged and there is no evidence of acute inflammation at this time Current Visit: Yes - Time Spent With Patient Total time spent is greater than 50% in coordination of care (as documented) at patient's floor/unit and/or counseling patient:
--- NOTE | 2017-09-10 20:46 | General Surgery Consult Note ---
History of Present Illness Patient information: Note initiated : 09/10/17 at 8:43 pm Service Date, if different from initiated Date: [] Patient: Naz Joseph 72 y/o F admitted on 09/08/17 for Hypotension/Small Bowel Obstruction. Chief Complaint: [] Consult date: 09/10/17 Requesting physician: Meme Amin (Wound Care RLE / RUE wounds) History of present illness: I saw this patient along with Maame SH[employer] C[employer] DRILL OPERATOR and Johanny RN in patient wound care nurse. She is an established patient at wound care clinic and was last seen one week ago for MRSA post traumatic wounds lateral aspect of upper third forearm and anterior aspect of right knee after a non syncopal fall at home over 2 weeks ago. This admission to ICU was for hypotension requiring IV fluids and pressors. Patient has ESRD and is on HD. She has secondary hyperparathyroidism. Medications and Allergies Home Medications Medication Instructions Recorded Confirmed Type cyanocobalamin (vit B-12) ER 1,000 1,000 mcg PO QDAY tab 12/03/14 09/09/17 History mcg tablet,extended release sevelamer carbonate 800 mg tablet 800 mg PO TIDAC 06/01/15 09/09/17 History trazodone 100 mg tablet 250 mg PO QHS 90 Days #225 tab 09/11/16 09/09/17 Rx Albuterol Sulfate [Ventolin] 2.5 mg NEB Q2HP PRN ampul.neb 05/20/17 09/09/17 Rx Ipratropium/Albuterol [Duoneb] 3 ml NEB BID ampul.neb 05/20/17 09/09/17 Rx Acetaminophen [Tylenol] 650 mg PO Q4-6HP PRN tab 05/28/17 09/09/17 Rx Vitamin D3 1,000 unit PO DAILY tab 05/28/17 09/09/17 Rx aripiprazole 2 mg tablet 2 mg PO QDAY 30 Days #30 tab 08/29/17 09/09/17 Rx budesonide 0.5 mg/2 mL suspension 0.5 mg INHALATION Q12 #60 ml 08/29/17 Rx for nebulization cephalexin 500 mg capsule 500 mg PO Q12H 14 Days #28 cap 08/29/17 09/09/17 Rx clopidogrel 75 mg tablet 75 mg PO DAILY #30 tab 08/29/17 09/09/17 Rx fluoxetine 40 mg capsule 40 mg PO QDAY #90 cap 08/29/17 09/09/17 Rx hydromorphone 2 mg tablet 2 mg PO Q8H PRN #90 tab 08/29/17 09/09/17 Rx nicotine 7 mg/24 hr daily 1 patch TRANSDERMA QDAY #30 each 08/29/17 09/09/17 Rx transdermal patch wheelchair See Dose Instructions .ROUTE 08/29/17 09/03/17 Rx .MEDSUPPLY #1 each sulfamethoxazole 800 1 tab PO BID 14 Days #28 tab 08/31/17 09/09/17 Rx mg-trimethoprim 160 mg tablet fludrocortisone 0.1 mg tablet 0.05 mg PO QDAY #30 tab 09/05/17 09/09/17 Rx midodrine 5 mg tablet 10 mg PO TID@0800,1200,1700 #180 09/05/17 09/09/17 Rx tab Sennosides [Senna] 1 tab PO HS 09/09/17 09/09/17 History Sennosides [Senokot] 2 tab PO DAILY 09/09/17 09/09/17 History Allergies Allergy/AdvReac Type Severity Reaction Status Date / Time codeine Allergy Mild Hives Verified 09/03/17 10:45 Oxycodone Allergy Mild Rash Verified 09/03/17 10:45 NSAIDS (Non-Steroidal Allergy Unknown Unknown Verified 09/03/17 10:45 Anti-Inflamma meperidine [From Demerol] AdvReac Mild Itching Verified 09/03/17 10:45 Exam Temp Pulse Resp BP Pulse Ox 97.6 F 80 20 88/64 98 09/10/17 16:00 09/10/17 20:23 09/10/17 20:23 09/10/17 19:01 09/10/17 20:23 - General physical appearance well developed, well nourished, no distress - Eyes PERRL, normal ocular movement - ENT normal pinna, normal nares, no congestion - Head Head exam IM: Present: atraumatic, normal inspection, normocephalic - Neck no masses, no bruits, trachea midline, no venous distension - Cardiovascular Cardiovascular exam IM: Present: normal rate and rhythm - Respiratory normal expansion, other (Decreased AE at bases.Fluid overloaded. On pressors and HD) - Abdomen Abdomen: Present: soft, non tender, bowel sounds - Integumentary Present: other (Scattered bruises. AVG of Left arm for HD. WOUNDS: Right forearm upper lateral third skin and sub q 4 x3 CM with over 70 % slough and few granulating areas. Sub q fat is exposed. Periwound skin and sub q tissues are edematous. RIGHT anterior knee wound is full thickness and extends to underlying quad tendon. Circumferential undermining for about a CM. NO purulence. NOT warm.) - Neurologic Present: normal coordination, other (DAMIAN. No focal deficits.) - Musculoskeletal Present: normal posture, other (DAMIAN. NO one injuries .) - Psychiatric Present: oriented to time, oriented to person, speech is normal Results - Labs 09/11/17 03:40 09/11/17 03:40 Abnormal lab results 09/10/17 09/10/17 Range/Units 04:00 04:00 RBC 3.29 L (4.00-5.20) M/mcL MCV 115.3 H (80.0-100.0) fL MCH 37.5 H (26.0-34.0) pg RDW 20.9 H (11.5-14.5) % MPV 11.0 H (7.4-10.4) fL Potassium 3.0 L (3.3-5.1) mmol/L Anion Gap 18.0 H (8-16) Creatinine 4.0 H (0.6-1.1) mg/dl Total Protein 5.5 L (5.9-8.4) gm/dL Albumin 2.9 L (3.2-5.2) gm/dL Diabetes panel 09/10/17 Range/Units 04:00 Sodium 139 (133-145) mmol/L Potassium 3.0 L (3.3-5.1) mmol/L Chloride 96 (96-108) mmol/L Carbon Dioxide 25 (22-30) mmol/L BUN 13 (8-23) mg/dl Creatinine 4.0 H (0.6-1.1) mg/dl Glucose 72 (70-105) mg/dL Calcium 8.8 (8.6-10.4) mg/dl AST 13 (0-37) U/l ALT 9 (0-40) U/l Alkaline Phosphatase 62 (39-117) U/L Total Protein 5.5 L (5.9-8.4) gm/dL Albumin 2.9 L (3.2-5.2) gm/dL Triglycerides 102 (<150) mg/dl Calcium panel 09/10/17 Range/Units 04:00 Calcium 8.8 (8.6-10.4) mg/dl Phosphorus 3.6 (2.7-4.5) mg/dL Albumin 2.9 L (3.2-5.2) gm/dL Pituitary panel 09/10/17 Range/Units 04:00 Sodium 139 (133-145) mmol/L Potassium 3.0 L (3.3-5.1) mmol/L Chloride 96 (96-108) mmol/L Carbon Dioxide 25 (22-30) mmol/L BUN 13 (8-23) mg/dl Creatinine 4.0 H (0.6-1.1) mg/dl Glucose 72 (70-105) mg/dL Calcium 8.8 (8.6-10.4) mg/dl Adrenal panel 09/10/17 Range/Units 04:00 Sodium 139 (133-145) mmol/L Potassium 3.0 L (3.3-5.1) mmol/L Chloride 96 (96-108) mmol/L Carbon Dioxide 25 (22-30) mmol/L BUN 13 (8-23) mg/dl Creatinine 4.0 H (0.6-1.1) mg/dl Glucose 72 (70-105) mg/dL Calcium 8.8 (8.6-10.4) mg/dl Total Bilirubin 0.6 (0.0-1.0) mg/dL AST 13 (0-37) U/l ALT 9 (0-40) U/l Alkaline Phosphatase 62 (39-117) U/L Total Protein 5.5 L (5.9-8.4) gm/dL Albumin 2.9 L (3.2-5.2) gm/dL All other labs normal. Assessment and Plan (1) Multiple wounds of skin Assessments: Multiple skin bruises. Two open ulcers ONE on Right forearm upper / lateral third full thickness and SECOND on anterior aspect of right knee Full thickness and extends to underlying tendon. NO purulence. No odor Plan: For continuation of ongoing wound care and conservative management. D/ W nursing staff. See orders. Status: Chronic Priority: Low
[2017-09-10] MEDS: traZODone HCL 50 MG TABLET PO SCH (21:11)
[2017-09-10] MEDS: FAMOTIDINE/PF 20 MG/2 ML VIAL IV SCH (21:14)
[2017-09-10] MEDS: SENNOSIDES 1 TABLET PO SCH ×2 (21:15)
--- NOTE | 2017-09-10 21:25 | Internal Med Progress Note ---
Medical - PN: Subj Patient information: Note initiated : 09/10/17 at 9:17 pm Service Date, if different from initiated Date: [] Patient: Naz Joseph a 72 y/o F admitted on 09/08/17 for Hypotension/Small Bowel Obstruction. Interval history: Ms. Joseph is a 72 year old Female with h/o end-stage renal disease on dialysis follows with Dr. REAGAN, the patient presents to the emergency room after being sent from dialysis to the ER for low blood pressure. According to the patient she has not been well for the last 2 weeks. She has been weak, she fell down reports this as a mechanical fall and injured the right side of the knee. She developed a wound for which she has been followed by the wound care clinic. According to the patient history the swab taken from that wound was growing MRSA, patient is on Bactrim and Keflex for same. The patient has been having ongoing diarrhea for approximately last 1 week liquid watery dark green 4-5 episodes every day, she has been getting weaker and more fatigued. She has had decreased appetite and has not been eating or drinking very well. She also admits to be having some nausea. The patient reports that she is not able to ambulate well and finds it difficult to even get up and move around. She presented for dialysis at which point in time she was noted to have low blood pressures with systolic in 70s, he was therefore sent to the emergency room for further evaluation. The patient also notes that she has subjective sensations of chills and intermittent shakes which have been progressively getting worse over the last weeks. Has any documented fever, has chronic headaches worse now, no dizziness , no changes in vision, has dry mouth no difficulty in swallowing no changes in hearing, no neck swelling or lymphadenopathy no bleeding. She has shortness of breath on exertion which is far worse than her baseline. She denies any chest pain, has nausea no abdominal pain she had diarrhea over the last 1 week. The patient denies any acute joint swelling or joint pain besides the right knee. In the emergency room the patient was afebrile, heart rate 67 blood pressure 78/ 61, saturating 98% on room air, White blood cell count was 8.8 hemoglobin 12.9 platelets 155, sodium 138, potassium 2.9, bicarbonate 29 creatinine 4.6 glucose level was 81. The patient's x-ray of the abdomen showed possible small bowel obstruction, CT scan of the abdomen was done with contrast after consultation with nephrology and was tentatively reported as small bowel obstruction. Dr. Ricketts the general surgeon was consulted from the emergency room. He would be seeing the patient. The patient's right knee had an ulcer with erythema extending on the anterior aspect of the knee, on my exam there was fluctuation likely infected bursitis Given low blood pressure, which remained low despite 2 L of fluid resuscitation possible abscess, small bowel obstruction the patient has been admitted to the ICU for further management. September 09 Patient seen examined, feeling better, on Levophed, patient has no acute complaints, appreciate help from surgery as well as nephrology. X-ray abdomen repeated today. Patient is scheduled for dialysis today. Central line placed yesterday, CVP is elevated at 15-18. Echo ordered. Cdif positive. September 10 On Vanco po for C dif. Liquid diarrhea. Rectal tube in. Still profuse diarrhea. Will add Metronidazole IV Examined knee R with dr Pedraza. Don't think it's infected, or requires systemic antibiotics. Case d/w nephrology (dr Bynum): HD for fluid overload today. Still on Levophed gtt. - Constitutional Vitals: Vital Signs Temp Pulse Resp BP Pulse Ox 97.5 F 80 23 H 94/71 98 09/10/17 19:02 09/10/17 20:23 09/10/17 21:00 09/10/17 20:02 09/10/17 20:23 Period Temp Pulse Resp BP Sys/Millan Pulse Ox Last 24 Hr 97.2 F-98.2 F 72-86 - 78-108/52-77 95-100 Intake and Output 09/10/17 09/10/17 09/10/17 05:59 13:59 21:59 Intake Total 965 / 965 787 / 787 Output Total 400 / 400 2650 / 2650 Balance 565 / 565 -1863 / -1863 Weight 190 lb 4.143 oz Patient Weight 09/11/17 05:59 Weight 190 lb 4.143 oz Intake & Output: Intake & Output 09/10/17 09/10/17 09/10/17 05:59 13:59 21:59 Intake Total 965 / 965 787 / 787 Output Total 400 / 400 2650 / 2650 Balance 565 / 565 -1863 / -1863 Weight 190 lb 4.143 oz Intake: IV 425 / 425 27 / 27 Levophed 16 mg In Sodium 265 / 265 27 / 27 Chloride 0.9% 234 ml @ 10 MCG/ MIN 9.37 mls/hr IV Q24H [facility] Rx# :[id number] Zosyn 2.25 gm In Dextrose 5% in 50 / 50 Water 50 ml @ 100 mls/hr IV Q12H [facility] Rx#:[id number] Potassium Chloride 20 Meq In 110 / 110 Dextrose 5% in Water 100 ml @ 55 mls/hr IV ONCE ONE Rx#: [id number] Oral 360 / 360 760 / 760 GI Tube Flush 180 / 180 Output: Stool 400 / 400 50 / 50 Hemodialysis UF 2600 / 2600 Other: Meal Dinner Percent of Meal Consumed 100% Feeding Ability Independent Stool Size Small Stool Color Brown Green Green Green Stool Consistency Liquid Watery Watery # of times incontinent of 1 Bowels General appearance: no acute distress - Head Head exam: Present: normal inspection - Respiratory Respiratory exam: Present: normal respiratory exam - Cardiovascular Cardiovascular exam: Present: normal rate and rhythm - GI/Abdominal GI/Abdominal exam: Present: normal bowel sounds - Extremities Exam Extremities exam: Absent: normal inspection (R knee ulcer, no drainage of pus. No erythema.) - Neurological Exam Neurological exam: Present: alert, oriented X3 Medical - PN: Obj Da - Labs CBC & Chem 7: 09/10/17 04:00 09/10/17 04:00 Labs: Abnormal Lab Results 09/10/17 09/10/17 09/09/17 04:00 04:00 04:00 RBC 3.29 L MCV 115.3 H MCH 37.5 H RDW 20.9 H MPV 11.0 H [place] # (Auto) Potassium 3.0 L Chloride 95 L Anion Gap 18.0 H 20.0 H Creatinine 4.0 H 4.4 H Total Protein 5.5 L 5.6 L Albumin 2.9 L 3.0 L Amylase 09/09/17 09/08/17 09/08/17 04:00 13:05 13:05 RBC 3.30 L 3.41 L MCV 114.8 H 113.8 H MCH 37.6 H 37.8 H RDW 21.3 H 19.2 H MPV 11.6 H 11.4 H [place] # (Auto) 1.0 H Potassium 2.9 L* Chloride 90 L Anion Gap 19.0 H Creatinine 4.6 H Total Protein Albumin Amylase 27 L Meds: Medications Acetaminophen (Tylenol) 650 mg PO Q4-6HP PRN PRN Reason: PAIN/FEVER > 101 Last Admin: 09/09/17 13:10 Dose: 650 mg Budesonide (Pulmicort) 0.5 mg NEB Q12 [facility] Last Admin: 09/10/17 20:15 Dose: 0.5 mg Clopidogrel Bisulfate (Plavix) 75 mg PO DAILY [facility] Last Admin: 09/10/17 09:46 Dose: 75 mg Cyanocobalamin (Vitamin B-12) 1,000 mcg PO DAILY [facility] Last Admin: 09/10/17 09:47 Dose: 1,000 mcg Dextrose (Dextrose 50%) 0 ml IV UD PRN PRN Reason: Hypoglycemia Last Admin: 09/09/17 01:10 Dose: 25 ml Diagnostic Test (Pha) (Accu-Chek) 1 each FS Q6 [facility] Last Admin: 09/10/17 17:46 Dose: 1 each Famotidine (Pepcid) 20 mg IV HS [facility] Last Admin: 09/10/17 21:14 Dose: 20 mg Fludrocortisone Acetate (Florinef) 0.05 mg PO Q48H [facility] Last Admin: 09/10/17 09:48 Dose: 0.05 mg Fluoxetine HCl (Prozac) 40 mg PO DAILY [facility] Last Admin: 09/10/17 09:46 Dose: 40 mg Heparin Sodium (Porcine) (Heparin) 5,000 unit SQ Q12 [facility] Last Admin: 09/10/17 21:11 Dose: 5,000 unit Hydromorphone HCl (Dilaudid) 2 mg PO Q8HP PRN PRN Reason: Pain Last Admin: 09/09/17 21:15 Dose: 2 mg Norepinephrine Bitartrate 16 (mg/ Sodium Chloride) 250 mls @ 9.37 mls/hr IV Q24H [facility]; 10 MCG/MIN PRN Reason: Protocol Last Admin: 09/10/17 18:03 Dose: Not Given Gentamicin Sulfate 40 mg/Clindamycin Phosphate 300 mg/Bacitracin 25,000 unit/ Sodium Chloride 503 mls @ 0 mls/hr IRR BID [facility] PRN Reason: As Directed Last Admin: 09/10/17 21:15 Dose: 1 mls/hr Insulin Human Lispro (Humalog) 0 unit SQ Q6 [facility] PRN Reason: Protocol Last Admin: 09/10/17 17:47 Dose: Not Given Lorazepam (Ativan) 0.5 mg IV Q4HP PRN PRN Reason: Anxiety Last Admin: 09/09/17 21:19 Dose: 0.5 mg Midodrine (Midodrine Hcl) 10 mg PO TID@0800,1200,1700 [facility] Last Admin: 09/10/17 17:32 Dose: 10 mg Aripiprazole [ Aripiprazole] 2 Mg Tablet 2 mg PO QDAY [facility] Last Admin: 09/10/17 09:47 Dose: 2 mg Senna (Senokot) 2 tab PO DAILY [facility] Last Admin: 09/10/17 09:49 Dose: Not Given Senna (Senokot) 1 tab PO HS [facility] Last Admin: 09/10/17 21:15 Dose: Not Given Sevelamer Carbonate (Renvela) 800 mg PO TIDAC [facility] Last Admin: 09/10/17 17:32 Dose: 800 mg Sodium Chloride (Saline Flush) 10 ml IV Q8 [facility] Last Admin: 09/10/17 21:16 Dose: 10 ml Sodium Chloride (Saline Flush) 10 ml IV Q12 [facility] Last Admin: 09/10/17 21:16 Dose: 10 ml Trazodone HCl (Desyrel) 250 mg PO HS [facility] Last Admin: 09/10/17 21:11 Dose: 250 mg Vancomycin HCl (Vancomycin Oral Lizy) 125 mg PO QID [facility] Last Admin: 09/10/17 21:11 Dose: 125 mg Medical - PN: A/P - Time Spent With Patient Total time spent is greater than 50% in coordination of care (as documented) at patient's floor/unit and/or counseling patient: 25 - 35 minutes - Narrative A/P Narrative: A/P Hypotension : despite 2 L fluids, likely from dehydration and infection, treat underlying infection, IV fluids, central line placed. Usually takes midodrine at home, but this time despite 2 doses, bp remained low. Echo pending. No evidence of sepsis. No blood cultures were obtained on admissions. Small bowel obstruction? As per Dr Ricketts unlikely based on UGI contrast study. On clear liquid diet. Diarrhea: positive for C dif toxin. Vanco po started 09/09. Still profuse diarrhea. Will add Flagyl IV Right knee bursitis/ Open wound: Possibly infected bursits vs hematoma vs reactionary swelling , get X Ray of the knee is reported negative. Wound inspection done with dr Pedraza 09/10. No indication for systemic antibiotics. Vanco IV discontinued. Local antibiotics. Wound, Knee/ elbow. MRSA pos. Most likely colonization vs infection. Hypokalemia: due to poor oral intake, monitor for now, Pt is ESRD on HD, will replace after central line placed. K better today ESRD on HD, followed by Dr Reagan, pt is being followed by Misa for now, HD planned for today. COPD: No wheezing on exam to continue bronchodilators, neg cxr for pna Fibromyalgia/ Chr pain: Resume home meds once verified. CAD no chest pain, on plavix, continue same DVT hep sq DNR code status.
[2017-09-10] MEDS: metroNIDAZOLE 500 MG/100 ML BAG IV SCH (22:40)
[2017-09-10] MEDS: HYDROmorphone 2 MG TABLET PO PRN (23:58)
[2017-09-11] MEDS: INSULIN LISPRO 1 UNIT/0.01 ML UNIT SQ SCH ×4 (00:17→17:12)
[2017-09-11] MEDS: metroNIDAZOLE 500 MG/100 ML BAG IV SCH ×3 (05:29→21:30)
[2017-09-11 05:39] LABS: Basophils # (Auto) 0 K/mcL (0.0-0.3); Basophils % (Auto) 0.5 % (0.0-2.0); Eosinophils # (Auto) 0.4 K/mcL (0.0-0.7); Eosinophils % (Auto) 4.2 % (0.0-7.0); Granulocytes % (Auto) 66.8 % (38.0-78.0); Lymphocytes # (Auto) 1.6 K/mcL (1.5-4.8); Lymphocytes % (Auto) 18.5 % (15.5-49.0); Mean Cell Volume 115.1 fL (80.0-100.0); Mean Corpuscular HGB Conc 32.4 g/dL (31.0-36.0); Mean Corpuscular Hemoglobin 37.3 pg (26.0-34.0); Monocytes # (Auto) 0.8 K/mcL (0.1-0.9); Platelet Count 133 K/mcL (140-440); RBC 3.18 M/mcL (4.00-5.20); Red Cell Distribution Width 21.2 % (11.5-14.5)
[2017-09-11] MEDS: 0.9 % SODIUM CHLORIDE 10 ML SYRINGE IV SCH ×7 (05:51→21:29)
[2017-09-11 05:57] LABS: Prealbumin 7.2 mg/dl (20-40)
[2017-09-11 06:01] LABS: ALT/SGPT 8 U/l (0-40); Albumin/Globulin Ratio 1.4 (1.0-2.3); Alkaline Phosphatase 58 U/L (39-117); Bilirubin,Direct 0.3 mg/dL (0.0-0.3); Blood Urea Nitrogen 11 mg/dl (8-23); Gamma Glutamyl Transpeptidase 14 U/L (5-36); Uric Acid 4.5 mg/dL (2.5-8.0)
[2017-09-11 06:02] LABS: C-Reactive Protein 3.3 mg/dl (0.0-0.8)
--- NOTE | 2017-09-11 06:10 | Nephrology Progress Note ---
Subjective Patient information: Note initiated : 09/11/17 at 6:08 am Naz Joseph is an 32-oyfld-qdx female with end stage renal disease on chronic hemodialysis (through left arm AV fistula, at [facility], on TTS, followed by Dr Valentin), chronic anemia due to chronic kidney disease, secondary hyperparathyroidism, history of gout, coronary artery disease, presented for her scheduled dialysis on 09/08/17. She was hypotensive (71/54) despite 2 doses of Midodrine at home on arrival to dialysis unit and sent to ED and admitted. She is in ICU on IV pressors. Chief complaint: Weakness. Principal diagnosis: End stage renal disease on chronic hemodialysis Interval history: Still in ICU on IV pressors and fluid overloaded. Pertinent ROS: Weakness. Shortness of breath. Edema. Diarrhea. Objective - Vital Signs Vital signs: Vital Signs Temp Pulse Resp BP Pulse Ox 09/11/17 06:01 74 16 86/57 96 09/11/17 06:00 73 19 97 09/11/17 05:47 72 16 97 09/11/17 05:46 73 17 86/57 98 09/11/17 05:31 73 15 83/61 98 09/11/17 05:16 73 15 84/60 98 09/11/17 05:01 73 16 87/59 98 09/11/17 05:00 72 14 98 09/11/17 04:46 72 18 80/62 98 09/11/17 04:31 72 15 82/62 98 09/11/17 04:16 74 18 85/62 98 09/11/17 04:02 17 09/11/17 04:01 16 92/65 09/11/17 04:00 97.9 F 19 92/65 98 09/11/17 03:46 74 16 79/57 96 09/11/17 03:31 74 17 79/57 97 09/11/17 03:16 72 15 82/57 97 09/11/17 03:02 73 16 97 09/11/17 03:01 73 15 85/63 97 09/11/17 03:00 73 15 97 09/11/17 02:02 74 17 96 09/11/17 02:01 74 18 92/60 97 09/11/17 02:00 73 16 96 09/11/17 01:02 97.2 F 74 19 96 09/11/17 01:01 74 19 88/66 96 09/11/17 01:00 74 20 88/66 96 09/11/17 00:02 97.9 F 22 88/71 09/11/17 00:01 25 H 88/71 09/11/17 00:00 79 22 96 09/10/17 23:05 78 21 85/57 95 09/10/17 23:01 78 22 94 09/10/17 23:00 79 18 94 09/10/17 22:57 79 22 94 09/10/17 22:54 79 22 93 09/10/17 22:02 20 09/10/17 22:01 21 73/56 98 09/10/17 22:00 20 09/10/17 21:01 22 94/71 09/10/17 21:00 23 H 09/10/17 20:23 80 20 98 09/10/17 20:02 78 22 94/71 98 09/10/17 20:01 78 22 93/68 98 09/10/17 20:00 78 23 H 98 09/10/17 19:48 79 24 H 87/63 97 09/10/17 19:02 97.5 F 79 21 97 09/10/17 19:01 78 24 H 88/64 98 09/10/17 19:00 78 23 H 98 09/10/17 18:49 80 23 H 83/62 97 09/10/17 18:01 77 23 H 78/65 99 09/10/17 18:00 77 25 H 99 09/10/17 17:02 77 20 100 09/10/17 17:01 80 22 95/69 100 09/10/17 16:01 25 H 105/77 09/10/17 16:00 97.6 F 09/10/17 15:01 83 26 H 100/65 100 09/10/17 14:35 82 24 H 97/64 100 09/10/17 14:30 100 09/10/17 14:26 97.5 F 80 97/64 09/10/17 14:16 84 94/68 09/10/17 14:02 80 94/64 09/10/17 14:01 80 19 94/64 100 09/10/17 13:46 79 23 H 106/72 100 09/10/17 13:31 79 25 H 106/72 100 09/10/17 13:22 77 92/65 09/10/17 13:16 79 18 92/65 100 09/10/17 13:05 81 85/52 09/10/17 13:01 86 14 85/52 100 09/10/17 12:51 79 88/53 09/10/17 12:47 80 24 H 88/53 100 09/10/17 12:31 75 96/68 09/10/17 12:15 78 99/69 09/10/17 12:09 77 25 H 108/73 100 09/10/17 11:59 80 108/73 09/10/17 11:50 73 91/63 09/10/17 11:46 73 23 H 91/63 100 09/10/17 11:41 97.2 F 76 90/68 09/10/17 11:33 75 23 H 90/68 99 09/10/17 11:01 78 20 92/71 99 09/10/17 10:01 76 14 86/63 100 09/10/17 09:38 75 18 99 09/10/17 09:30 75 20 09/10/17 09:01 77 21 94/60 98 09/10/17 08:01 73 19 85/62 98 09/10/17 07:04 97.6 F 77 21 83/61 96 09/10/17 06:45 98 Intake and Output 09/10/17 09/11/17 09/11/17 21:59 05:59 13:59 Intake Total 787 / 787 195 / 195 Output Total 2650 / 2650 100 / 100 Balance -1863 / -1863 95 / 95 Intake: IV Levophed 16 mg In Sodium 95 / 95 Chloride 0.9% 234 ml @ 10 MCG/ MIN 9.37 mls/hr IV Q24H [facility] Rx# :[id number] Oral 760 / 760 Output: Stool 50 / 50 100 / 100 Hemodialysis UF 2600 / 2600 Other: Meal Dinner Percent of Meal Consumed 100% Feeding Ability Independent Stool Size Small Stool Color Brown Brown Green Green Stool Consistency Liquid Liquid Weight 190 lb 4.143 oz Intake & Output: Intake & Output 09/10/17 09/11/17 09/11/17 21:59 05:59 13:59 Intake Total 787 / 787 195 / 195 Output Total 2650 / 2650 100 / 100 Balance -1863 / -1863 95 / 95 Weight 190 lb 4.143 oz Intake: IV 195 / 195 Levophed 16 mg In Sodium 95 / 95 Chloride 0.9% 234 ml @ 10 MCG/ MIN 9.37 mls/hr IV Q24H [facility] Rx# :[id number] Oral 760 / 760 Output: Stool 50 / 50 100 / 100 Hemodialysis UF 2600 / 2600 Other: Meal Dinner Percent of Meal Consumed 100% Feeding Ability Independent Stool Size Small Stool Color Brown Brown Green Green Stool Consistency Liquid Liquid - General Appearance General appearance: chronically ill, fatigue, frail EENT: mucous membranes dry Neck: supple Respiratory: clear Cardiology: edema Gastrointestinal: tenderness Integumentary: warm and dry Neurologic: no focal deficit, alert and oriented x3 Musculoskeletal: no erythema, no cyanosis Psychiatric: mood/affect appropriate, cooperative - Lab 09/11/17 03:40 09/11/17 03:40 Most recent lab results Calcium 8.6 mg/dl (8.6-10.4) 09/11/17 03:40 Phosphorus 3.3 mg/dL (2.7-4.5) 09/11/17 03:40 Magnesium 1.8 mg/dL (1.6-2.5) 09/11/17 03:40 - Allied health notes Allied health notes reviewed: nursing Assessment and Plan (1) ESRD (end stage renal disease) on dialysis Chronic hemodialysis through left arm AV fistula, at [facility], on TTS, followed by Dr Valentin. Hemodialysis today with 3 kg UF goal. Status: Chronic Priority: Medium (2) Anasarca Echocardiogram report pending. Hemodialysis today with 3 kg UF goal. Status: Acute Priority: Medium (3) Anemia due to end stage renal disease Status: Chronic Priority: Medium (4) Secondary hyperparathyroidism of renal origin Status: Chronic Priority: Medium (5) Hypokalemia Status: Resolved Priority: Medium (6) Septic shock due to Clostridium difficile Managed by hospitalist team. Status: Acute Priority: High
[2017-09-11 06:26] LABS: Hemoglobin A1C 5.1 % HGB (4.0-6.0)
[2017-09-11] MEDS: MIDODRINE 5 MG TABLET PO SCH ×3 (07:09→17:03)
[2017-09-11] MEDS: SEVELAMER 800 MG TABLET PO SCH ×3 (07:10→17:03)
[2017-09-11] MEDS: FLUoxetine HCL 20 MG CAPSULE PO SCH (09:16)
[2017-09-11] MEDS: HEPARIN 5,000 UNIT/ML VIAL SQ SCH ×2 (09:16→21:27)
[2017-09-11] MEDS: CLOPIDOGREL 75 MG TABLET PO SCH (09:16)
[2017-09-11] MEDS: CYANOCOBALAMIN (VITAMIN B-12) 500 MCG TABLET PO SCH (09:16)
[2017-09-11] MEDS: VANCOMYCIN ORAL SOL 1,000 MG/10 ML BOTTLE PO SCH ×4 (09:19→21:27)
[2017-09-11] MEDS: GENTAMICIN SULFATE 40 MG, CLINDAMYCIN 300 MG, BACITRACIN 25,000 UNIT in SODIUM CHLORIDE... IRR SCH ×2 (09:20→21:28)
[2017-09-11] MEDS: BUDESONIDE 0.5 MG/2 ML AMPUL.NEB NEB SCH ×2 (09:26→20:22)
[2017-09-11] MEDS: ARIPIPRAZOLE 2 MG PO SCH (09:48)
[2017-09-11] MEDS: NOREPINEPHRINE BITARTRATE 16 MG in 0.9 % SODIUM CHLORIDE 234 ML IV SCH (09:49)
[2017-09-11] MEDS: ACETAMINOPHEN 325 MG TABLET PO PRN (12:11)
--- NOTE | 2017-09-11 14:34 | General Surgery Progress Note ---
Subjective Patient reports: feels better, pain is less, tolerating liquids well, flatus, bowel movement, diarrhea, afebrile Narrative: Note initiated : 09/11/17 at 2:31 pm Service Date, if different from initiated Date: [] Patient: Naz Joseph 72 y/o F admitted on 09/08/17 for Hypotension/Small Bowel Obstruction. Chief Complaint: [Patient continues to improve. She has less pain and her bowel movements have more consistency. She is passing lots of flatus. She denies gaseous distention. She denies nausea and is tolerating clear liquids without difficulty. She remains afebrile and her white blood count remains normal. Her blood pressure is still marginal and she still requires levo fed for dialysis. They were able to remove 3 L of fluid today.] Objective Temp Pulse Resp BP Pulse Ox 97.7 F 82 18 110/75 100 09/11/17 12:28 09/11/17 13:01 09/11/17 13:01 09/11/17 13:01 09/11/17 13:01 - Additional Data Intake & Output - Last 24 hours: Intake & Output 09/09/17 09/10/17 09/11/17 09/12/17 05:59 05:59 05:59 05:59 Intake Total 3050 / 3050 1391 / 1391 1947 / 1947 1177 / 1177 Output Total 0 / 0 3150 / 3150 3000 / 3000 Balance 3050 / 3050 1391 / 1391 -1203 / -1203 -1823 / -1823 Weight 194 lb 0.64 oz 190 lb 1.28 oz 190 lb 4.143 oz - General physical appearance well developed, well nourished, no distress, chronically ill - Eyes PERRL, normal ocular movement - ENT normal pinna, normal nares, normal mucosa, no hearing loss, no congestion - Neck no masses, no bruits, trachea midline, no lymphadectomy, no venous distension - Respiratory normal expansion, normal respiratory effort, clear to percussion, clear to auscultation - Cardiovascular Cardiovascular exam: Present: normal rate and rhythm, RRR, +S1, +S2. Absent: JVD, tachycardia - Abdomen non tender (Abdomen is nontender; she has good active bowel sounds;), bowel sounds (present), surgical scars (none), masses (none) - Integumentary other (Ecchymoses and bruising is improving on a daily basis; no evidence of cellulitis) - Neurologic normal sensation - Psychiatric oriented to time, oriented to person, oriented to place, speech is normal, memory intact - Labs 09/11/17 03:40 09/11/17 03:40 Diabetes panel 09/11/17 09/11/17 Range/Units 03:40 03:40 Sodium 139 (133-145) mmol/L Potassium 3.3 (3.3-5.1) mmol/L Chloride 99 (96-108) mmol/L Carbon Dioxide 25 (22-30) mmol/L BUN 11 (8-23) mg/dl Creatinine 3.7 H (0.6-1.1) mg/dl Glucose 110 H (70-105) mg/dL Hemoglobin A1c 5.1 (4.0-6.0) % HGB Calcium 8.6 (8.6-10.4) mg/dl AST 13 (0-37) U/l ALT 8 (0-40) U/l Alkaline Phosphatase 58 (39-117) U/L Total Protein 5.1 L (5.9-8.4) gm/dL Albumin 3.0 L (3.2-5.2) gm/dL Triglycerides 97 (<150) mg/dl Thyroid panel 09/11/17 Range/Units 03:40 TSH 3.71 (0.27-5.01) uIU/ml Calcium panel 09/11/17 Range/Units 03:40 Calcium 8.6 (8.6-10.4) mg/dl Phosphorus 3.3 (2.7-4.5) mg/dL Albumin 3.0 L (3.2-5.2) gm/dL Pituitary panel 09/11/17 09/11/17 Range/Units 03:40 03:40 Sodium 139 (133-145) mmol/L Potassium 3.3 (3.3-5.1) mmol/L Chloride 99 (96-108) mmol/L Carbon Dioxide 25 (22-30) mmol/L BUN 11 (8-23) mg/dl Creatinine 3.7 H (0.6-1.1) mg/dl Glucose 110 H (70-105) mg/dL Calcium 8.6 (8.6-10.4) mg/dl TSH 3.71 (0.27-5.01) uIU/ml Adrenal panel 09/11/17 Range/Units 03:40 Sodium 139 (133-145) mmol/L Potassium 3.3 (3.3-5.1) mmol/L Chloride 99 (96-108) mmol/L Carbon Dioxide 25 (22-30) mmol/L BUN 11 (8-23) mg/dl Creatinine 3.7 H (0.6-1.1) mg/dl Glucose 110 H (70-105) mg/dL Calcium 8.6 (8.6-10.4) mg/dl Total Bilirubin 0.6 (0.0-1.0) mg/dL AST 13 (0-37) U/l ALT 8 (0-40) U/l Alkaline Phosphatase 58 (39-117) U/L Total Protein 5.1 L (5.9-8.4) gm/dL Albumin 3.0 L (3.2-5.2) gm/dL Assessment and Plan (1) Chronic diarrhea Status: Acute Assessment and plan: She does not have abdominal pain. C. difficile positive; diarrhea is improved since yesterday Current Visit: Yes (2) Nausea and vomiting Status: Acute Assessment and plan: Tolerating full liquids without difficulty Current Visit: Yes (3) Anasarca Status: Acute Current Visit: Yes (4) Hypotension Status: Acute Assessment and plan: Presently being supported with levo fed Current Visit: Yes (5) ESRD (end stage renal disease) on dialysis Status: Chronic Assessment and plan: Schedule for hemodialysis later this morning Current Visit: Yes (6) Ulcer of right knee Status: Acute Assessment and plan: Ulceration is unchanged and there is no evidence of acute inflammation at this time Current Visit: Yes - Time Spent With Patient Total time spent is greater than 50% in coordination of care (as documented) at patient's floor/unit and/or counseling patient:
--- NOTE | 2017-09-11 15:40 | General Surgery Progress Note ---
Subjective Patient reports: no new complaints Narrative: Note initiated : 09/11/17 at 3:38 pm Service Date, if different from initiated Date: [] Patient: Naz Joseph 72 y/o F admitted on 09/08/17 for Hypotension/Small Bowel Obstruction. Chief Complaint: [] Patient seen earlier today and progress reviewed with J[facility] [employer] COORDINATOR. She is making steady progress with improvement of her C Diff colitis. Tolerating liquids Po and is more alert and interactive. Still on pressors for HD. There are NO interval changes in her wounds. Ongoing management reviewed. Objective Temp Pulse Resp BP Pulse Ox 97.7 F 79 20 76/53 92 09/11/17 12:28 09/11/17 15:01 09/11/17 15:01 09/11/17 15:01 09/11/17 15:01 AVSS. Diarrhea is improving. On Pressors for HD. No other CVS, RS or GI issues. Wound care is ongoing. NOTED possibility of discharge from hospital soon. - Additional Data Intake & Output - Last 24 hours: Intake & Output 09/09/17 09/10/17 09/11/17 09/12/17 05:59 05:59 05:59 05:59 Intake Total 3050 / 3050 1391 / 1391 1947 / 1947 1221 / 1221 Output Total 0 / 0 3150 / 3150 3000 / 3000 Balance 3050 / 3050 1391 / 1391 -1203 / -1203 -1779 / -1779 Weight 194 lb 0.64 oz 190 lb 1.28 oz 190 lb 4.143 oz - Labs 09/11/17 03:40 09/11/17 03:40 Diabetes panel 09/11/17 09/11/17 Range/Units 03:40 03:40 Sodium 139 (133-145) mmol/L Potassium 3.3 (3.3-5.1) mmol/L Chloride 99 (96-108) mmol/L Carbon Dioxide 25 (22-30) mmol/L BUN 11 (8-23) mg/dl Creatinine 3.7 H (0.6-1.1) mg/dl Glucose 110 H (70-105) mg/dL Hemoglobin A1c 5.1 (4.0-6.0) % HGB Calcium 8.6 (8.6-10.4) mg/dl AST 13 (0-37) U/l ALT 8 (0-40) U/l Alkaline Phosphatase 58 (39-117) U/L Total Protein 5.1 L (5.9-8.4) gm/dL Albumin 3.0 L (3.2-5.2) gm/dL Triglycerides 97 (<150) mg/dl Thyroid panel 09/11/17 Range/Units 03:40 TSH 3.71 (0.27-5.01) uIU/ml Calcium panel 09/11/17 Range/Units 03:40 Calcium 8.6 (8.6-10.4) mg/dl Phosphorus 3.3 (2.7-4.5) mg/dL Albumin 3.0 L (3.2-5.2) gm/dL Pituitary panel 09/11/17 09/11/17 Range/Units 03:40 03:40 Sodium 139 (133-145) mmol/L Potassium 3.3 (3.3-5.1) mmol/L Chloride 99 (96-108) mmol/L Carbon Dioxide 25 (22-30) mmol/L BUN 11 (8-23) mg/dl Creatinine 3.7 H (0.6-1.1) mg/dl Glucose 110 H (70-105) mg/dL Calcium 8.6 (8.6-10.4) mg/dl TSH 3.71 (0.27-5.01) uIU/ml Adrenal panel 09/11/17 Range/Units 03:40 Sodium 139 (133-145) mmol/L Potassium 3.3 (3.3-5.1) mmol/L Chloride 99 (96-108) mmol/L Carbon Dioxide 25 (22-30) mmol/L BUN 11 (8-23) mg/dl Creatinine 3.7 H (0.6-1.1) mg/dl Glucose 110 H (70-105) mg/dL Calcium 8.6 (8.6-10.4) mg/dl Total Bilirubin 0.6 (0.0-1.0) mg/dL AST 13 (0-37) U/l ALT 8 (0-40) U/l Alkaline Phosphatase 58 (39-117) U/L Total Protein 5.1 L (5.9-8.4) gm/dL Albumin 3.0 L (3.2-5.2) gm/dL Assessment and Plan (1) Multiple wounds of skin Status: Chronic Current Visit: Yes - Narrative A/P Narrative: Assessment: Patient is stable from wound care point of view. If she is discharged, recommend wound cre changes for KNEE wound. Clean with NS and apply Silvasorb and Mepilex border foam dressing x 3 week Plan: Please make f/u APPOINTMENT WITH WOUND CARE CLINIC WITH IN A WEEK AFTER DISCHARGE. - Time Spent With Patient Total time spent is greater than 50% in coordination of care (as documented) at patient's floor/unit and/or counseling patient: less than 15 minutes
--- NOTE | 2017-09-11 16:53 | Internal Med Progress Note ---
Medical - PN: Subj Patient information: Note initiated : 09/11/17 at 4:50 pm Service Date, if different from initiated Date: [] Patient: Naz Joseph a 72 y/o F admitted on 09/08/17 for Hypotension/Small Bowel Obstruction. Interval history: Ms. Joseph is a 72 year old Female with h/o end-stage renal disease on dialysis follows with Dr. REAGAN, the patient presents to the emergency room after being sent from dialysis to the ER for low blood pressure. According to the patient she has not been well for the last 2 weeks. She has been weak, she fell down reports this as a mechanical fall and injured the right side of the knee. She developed a wound for which she has been followed by the wound care clinic. According to the patient history the swab taken from that wound was growing MRSA, patient is on Bactrim and Keflex for same. The patient has been having ongoing diarrhea for approximately last 1 week liquid watery dark green 4-5 episodes every day, she has been getting weaker and more fatigued. She has had decreased appetite and has not been eating or drinking very well. She also admits to be having some nausea. The patient reports that she is not able to ambulate well and finds it difficult to even get up and move around. She presented for dialysis at which point in time she was noted to have low blood pressures with systolic in 70s, he was therefore sent to the emergency room for further evaluation. The patient also notes that she has subjective sensations of chills and intermittent shakes which have been progressively getting worse over the last weeks. Has any documented fever, has chronic headaches worse now, no dizziness , no changes in vision, has dry mouth no difficulty in swallowing no changes in hearing, no neck swelling or lymphadenopathy no bleeding. She has shortness of breath on exertion which is far worse than her baseline. She denies any chest pain, has nausea no abdominal pain she had diarrhea over the last 1 week. The patient denies any acute joint swelling or joint pain besides the right knee. In the emergency room the patient was afebrile, heart rate 67 blood pressure 78/ 61, saturating 98% on room air, White blood cell count was 8.8 hemoglobin 12.9 platelets 155, sodium 138, potassium 2.9, bicarbonate 29 creatinine 4.6 glucose level was 81. The patient's x-ray of the abdomen showed possible small bowel obstruction, CT scan of the abdomen was done with contrast after consultation with nephrology and was tentatively reported as small bowel obstruction. Dr. Ricketts the general surgeon was consulted from the emergency room. He would be seeing the patient. The patient's right knee had an ulcer with erythema extending on the anterior aspect of the knee, on my exam there was fluctuation likely infected bursitis Given low blood pressure, which remained low despite 2 L of fluid resuscitation possible abscess, small bowel obstruction the patient has been admitted to the ICU for further management. September 09 Patient seen examined, feeling better, on Levophed, patient has no acute complaints, appreciate help from surgery as well as nephrology. X-ray abdomen repeated today. Patient is scheduled for dialysis today. Central line placed yesterday, CVP is elevated at 15-18. Echo ordered. Cdif positive. September 10 On Vanco po for C dif. Liquid diarrhea. Rectal tube in. Still profuse diarrhea. Will add Metronidazole IV Examined knee R with dr Pedraza. Don't think it's infected, or requires systemic antibiotics. Case d/w nephrology (dr Bynum): HD for fluid overload today. Still on Levophed gtt. September 11 HD today. CVP was 20. Was drinking lots of fluid. Now on fluid restriction. Levophed at 10. Still significant stool output, but more formed. Considering placement of femoral a-line, but should wait till C.dif resolved. Will increase Florinef from 0.05 q 48 hr to 0.1 daily - Constitutional Vitals: Vital Signs Temp Pulse Resp BP Pulse Ox 98.7 F 82 20 89/62 92 09/11/17 16:00 09/11/17 16:00 09/11/17 16:00 09/11/17 16:00 09/11/17 16:00 Period Temp Pulse Resp BP Sys/Millan Pulse Ox Last 24 Hr 96.6 F-98.7 F 72-82 14-26 73-110/53-84 92-100 Intake and Output 09/11/17 09/11/17 09/11/17 05:59 13:59 21:59 Intake Total 195 / 195 1201 / 1201 20 / 20 Output Total 100 / 100 3000 / 3000 50 / 50 Balance 95 / 95 -1799 / -1799 -30 / -30 Intake & Output: Intake & Output 09/11/17 09/11/17 09/11/17 05:59 13:59 21:59 Intake Total 195 / 195 1201 / 1201 20 / 20 Output Total 100 / 100 3000 / 3000 50 / 50 Balance 95 / 95 -1799 / -1799 -30 / -30 Intake: IV 195 / 195 161 / 161 20 / 20 Levophed 16 mg In Sodium 95 / 95 61 / 61 20 / 20 Chloride 0.9% 234 ml @ 10 MCG/ MIN 9.37 mls/hr IV Q24H [facility] Rx# :[id number] Oral 920 / 920 GI Tube Flush 120 / 120 Output: Stool 100 / 100 50 / 50 Hemodialysis UF 3000 / 3000 Other: Meal Lunch Percent of Meal Consumed 100% Stool Size Small Small Stool Color Brown Green Green Green Stool Consistency Liquid Liquid Liquid General appearance: no acute distress - Head Head exam: Present: normal inspection - Respiratory Respiratory exam: Present: normal respiratory exam - Cardiovascular Cardiovascular exam: Present: normal rate and rhythm - GI/Abdominal GI/Abdominal exam: Present: soft. Absent: tenderness Medical - PN: Obj Da - Labs CBC & Chem 7: 09/11/17 03:40 09/11/17 03:40 Labs: Abnormal Lab Results 09/11/17 09/11/17 09/11/17 03:40 03:40 03:40 RBC 3.18 L Hgb 11.9 L MCV 115.1 H MCH 37.3 H RDW 21.2 H Plt Count [address] [place] # (Auto) Potassium Chloride Anion Gap Creatinine 3.7 H Glucose 110 H C-Reactive Protein 3.3 H Total Protein 5.1 L Albumin 3.0 L Globulin 2.1 L Prealbumin 7.2 L 09/10/17 09/10/17 09/09/17 04:00 04:00 04:00 RBC 3.29 L Hgb MCV 115.3 H MCH 37.5 H RDW 20.9 H Plt Count MPV 11.[address] [place] # (Auto) Potassium 3.0 L Chloride 95 L Anion Gap 18.0 H 20.0 H Creatinine 4.0 H 4.4 H Glucose C-Reactive Protein Total Protein 5.5 L 5.6 L Albumin 2.9 L 3.0 L Globulin Prealbumin 09/09/17 04:00 RBC 3.30 L Hgb MCV 114.8 H MCH 37.6 H RDW 21.3 H Plt Count MPV 11.[address] [place] # (Auto) 1.0 H Potassium Chloride Anion Gap Creatinine Glucose C-Reactive Protein Total Protein Albumin Globulin Prealbumin Meds: Medications Acetaminophen (Tylenol) 650 mg PO Q4-6HP PRN PRN Reason: PAIN/FEVER > 101 Last Admin: 09/11/17 12:11 Dose: 650 mg Budesonide (Pulmicort) 0.5 mg NEB Q12 [facility] Last Admin: 09/11/17 09:26 Dose: Not Given Clopidogrel Bisulfate (Plavix) 75 mg PO DAILY [facility] Last Admin: 09/11/17 09:16 Dose: 75 mg Cyanocobalamin (Vitamin B-12) 1,000 mcg PO DAILY [facility] Last Admin: 09/11/17 09:16 Dose: 1,000 mcg Dextrose (Dextrose 50%) 0 ml IV UD PRN PRN Reason: Hypoglycemia Last Admin: 09/09/17 01:10 Dose: 25 ml Diagnostic Test (Pha) (Accu-Chek) 1 each FS Q6 [facility] Last Admin: 09/11/17 12:32 Dose: 1 each Fludrocortisone Acetate (Florinef) 0.1 mg PO DAILY [facility] Fluoxetine HCl (Prozac) 40 mg PO DAILY [facility] Last Admin: 09/11/17 09:16 Dose: 40 mg Heparin Sodium (Porcine) (Heparin) 5,000 unit SQ Q12 [facility] Last Admin: 09/11/17 09:16 Dose: 5,000 unit Hydromorphone HCl (Dilaudid) 2 mg PO Q8HP PRN PRN Reason: Pain Last Admin: 09/10/17 23:58 Dose: 2 mg Norepinephrine Bitartrate 16 (mg/ Sodium Chloride) 250 mls @ 9.37 mls/hr IV Q24H [facility]; 10 MCG/MIN PRN Reason: Protocol Last Titration: 09/11/17 15:05 Dose: 10 mcg/min, 9.37 mls/hr Gentamicin Sulfate 40 mg/Clindamycin Phosphate 300 mg/Bacitracin 25,000 unit/ Sodium Chloride 503 mls @ 0 mls/hr IRR BID [facility] PRN Reason: As Directed Last Admin: 09/11/17 09:20 Dose: 1 mls/hr Metronidazole (Flagyl) 500 mg in 100 mls @ 100 mls/hr IV Q8H [facility] Last Admin: 09/11/17 14:15 Dose: 100 mls/hr Insulin Human Lispro (Humalog) 0 unit SQ Q6 [facility] PRN Reason: Protocol Last Admin: 09/11/17 13:26 Dose: 2 unit Lorazepam (Ativan) 0.5 mg IV Q4HP PRN PRN Reason: Anxiety Last Admin: 09/09/17 21:19 Dose: 0.5 mg Midodrine (Midodrine Hcl) 10 mg PO TID@0800,1200,1700 [facility] Last Admin: 09/11/17 12:10 Dose: 10 mg Aripiprazole [ Aripiprazole] 2 Mg Tablet 2 mg PO QDAY [facility] Last Admin: 09/11/17 09:48 Dose: 2 mg Senna (Senokot) 1 tab PO [facility] Last Admin: 09/10/17 21:15 Dose: Not Given Sevelamer Carbonate (Renvela) 800 mg PO TIDAC [facility] Last Admin: 09/11/17 13:26 Dose: 800 mg Sodium Chloride (Saline Flush) 10 ml IV Q8 [facility] Last Admin: 09/11/17 14:59 Dose: Not Given Sodium Chloride (Saline Flush) 10 ml IV Q12 [facility] Last Admin: 09/11/17 14:15 Dose: 10 ml Trazodone HCl (Desyrel) 250 mg PO [facility] Last Admin: 09/10/17 21:11 Dose: 250 mg Vancomycin HCl (Vancomycin Oral Lizy) 125 mg PO QID [facility] Last Admin: 09/11/17 13:30 Dose: 125 mg Medical - PN: A/P - Time Spent With Patient Total time spent is greater than 50% in coordination of care (as documented) at patient's floor/unit and/or counseling patient: 25 - 35 minutes - Narrative A/P Narrative: + Hypotension : despite 2 L fluids, likely from dehydration and infection, treat underlying infection, IV fluids, central line placed. Usually takes midodrine at home, but this time despite 2 doses, bp remained low. No evidence of sepsis, but has C.dif colitis. On Vanco po and Flagyl IV since . No blood cultures were obtained on admissions. On Midodrine and Florinef. Dose Florinef increased 09/11 to 0.1 mg daily + Small bowel obstruction? More likely C.dif colitis. Appreciate dr Ricketts's help. On clear liquid diet + Diarrhea: positive for C dif toxin. Vanco po started 09/09 and added Flagyl IV 09/10 + Right knee bursitis/ Open wound: Possibly infected bursits vs hematoma vs reactionary swelling , get X Ray of the knee is reported negative. Wound inspection done with dr Pedraza 09/10. No indication for systemic antibiotics. Vanco IV discontinued. Local antibiotics. + Wound, Knee/ elbow. MRSA pos. Most likely colonization vs infection. + Hypokalemia: due to poor oral intake, monitor for now, Pt is ESRD on HD, will replace after central line placed. K better today + ESRD on HD, followed by Dr Reagan, pt is being followed by M[facility] for now, HD planned for today. + COPD: No wheezing on exam to continue bronchodilators, neg cxr for pna + Fibromyalgia/ Chr pain: Resume home meds once verified. + CAD no chest pain, on plavix, continue same DVT hep sq DNR code status.
[2017-09-11] MEDS: traZODone HCL 50 MG TABLET PO SCH (21:28)
[2017-09-11] MEDS: SENNOSIDES 1 TABLET PO SCH (21:29)
[2017-09-12] MEDS: INSULIN LISPRO 1 UNIT/0.01 ML UNIT SQ SCH ×4 (00:55→17:28)
[2017-09-12] MEDS: HYDROmorphone 2 MG TABLET PO PRN (02:55)
[2017-09-12 05:25] LABS: Basophils # (Auto) 0 K/mcL (0.0-0.3); Basophils % (Auto) 0.1 % (0.0-2.0); Eosinophils # (Auto) 0.2 K/mcL (0.0-0.7); Eosinophils % (Auto) 2.3 % (0.0-7.0); Granulocytes % (Auto) 74.8 % (38.0-78.0); Lymphocytes # (Auto) 1.2 K/mcL (1.5-4.8); Lymphocytes % (Auto) 12.8 % (15.5-49.0); Mean Cell Volume 115.3 fL (80.0-100.0); Platelet Count 148 K/mcL (140-440); RBC 3.27 M/mcL (4.00-5.20); Red Cell Distribution Width 20.6 % (11.5-14.5)
[2017-09-12] MEDS: metroNIDAZOLE 500 MG/100 ML BAG IV SCH ×3 (05:26→22:49)
[2017-09-12] MEDS: 0.9 % SODIUM CHLORIDE 10 ML SYRINGE IV SCH ×5 (05:36→22:50)
[2017-09-12 05:48] LABS: ALT/SGPT 7 U/l (0-40); Albumin/Globulin Ratio 1.2 (1.0-2.3); Alkaline Phosphatase 59 U/L (39-117); Bilirubin,Direct 0.3 mg/dL (0.0-0.3); Blood Urea Nitrogen 10 mg/dl (8-23); Gamma Glutamyl Transpeptidase 16 U/L (5-36); Uric Acid 3.5 mg/dL (2.5-8.0)
--- NOTE | 2017-09-12 07:15 | Nephrology Progress Note ---
Subjective Patient information: Note initiated : 09/12/17 at 7:12 am Naz Joseph is an [id number]-[id number] female with end stage renal disease on chronic hemodialysis (through left arm AV fistula, at [facility], on TTS, followed by Dr Valentin), chronic anemia due to chronic kidney disease, secondary hyperparathyroidism, history of gout, coronary artery disease, presented for her scheduled dialysis on 09/08/17. She was hypotensive (71/54) despite 2 doses of Midodrine at home on arrival to dialysis unit and sent to ED and admitted. She is in ICU on IV pressors. Chief complaint: Weakness. Principal diagnosis: End stage renal disease on chronic hemodialysis Interval history: In ICU on IV pressors due to septic shock due to acute C diff colitis. Anasarca improving with daily dialysis. Pertinent ROS: Weakness. Edema. Diarrhea. Objective - Vital Signs Vital signs: Vital Signs Temp Pulse Resp BP Pulse Ox 09/12/17 06:01 85 20 89/61 96 09/12/17 06:00 89 16 98 09/12/17 05:01 79 21 98 09/12/17 05:00 79 21 83/60 96 09/12/17 04:01 80 23 H 85/58 95 09/12/17 04:00 98.2 F 80 21 85/58 93 09/12/17 03:02 81 21 95 09/12/17 03:01 81 22 107/74 94 09/12/17 03:00 82 21 94 09/12/17 02:01 80 20 95 09/12/17 02:00 80 19 96/68 95 09/12/17 01:01 83 22 86/55 89 L 09/12/17 01:00 83 21 91 09/12/17 00:01 98.2 F 80 20 96 09/12/17 00:00 80 20 92/67 96 09/11/17 23:02 77 22 93 09/11/17 23:01 73 17 79/52 92 09/11/17 23:00 74 21 93 09/11/17 22:02 80 24 H 94 09/11/17 22:01 82 26 H 91/63 93 09/11/17 22:00 80 20 92 09/11/17 21:01 79 25 H 95/68 94 09/11/17 21:00 80 18 96 09/11/17 20:29 82 17 96 03/27/18 20:02 81 23 H 97 09/11/17 20:01 83 23 H 108/73 97 09/11/17 20:00 97.7 F 82 22 97 09/11/17 19:01 80 22 92/63 96 09/11/17 19:00 79 22 97 09/11/17 18:02 22 09/11/17 18:01 23 H 93/66 09/11/17 17:01 83 22 93/66 95 09/11/17 16:00 98.7 F 82 20 89/62 92 09/11/17 15:01 79 20 76/53 92 09/11/17 14:01 80 20 93/61 92 09/11/17 14:00 97 09/11/17 13:01 82 18 110/75 100 09/11/17 12:39 79 25 H 102/74 97 09/11/17 12:31 80 19 96/64 100 09/11/17 12:28 97.7 F 81 96/64 09/11/17 12:20 81 90/66 09/11/17 12:01 97.4 F 80 19 103/71 99 09/11/17 11:45 78 83/58 09/11/17 11:31 78 20 91/58 99 09/11/17 11:16 76 20 84/53 99 09/11/17 11:15 76 09/11/17 11:03 78 105/72 09/11/17 11:00 78 24 H 105/72 96 09/11/17 10:55 80 78/63 09/11/17 10:38 75 85/58 09/11/17 10:31 74 18 85/58 100 09/11/17 10:23 75 86/67 09/11/17 10:11 75 85/62 09/11/17 10:01 74 21 85/62 99 09/11/17 09:55 26 H 85/62 09/11/17 09:52 78 85/62 09/11/17 09:43 96.6 F L 77 96/84 09/11/17 09:40 77 19 96/84 100 09/11/17 09:38 78 19 79/58 98 09/11/17 09:01 75 17 94/65 96 09/11/17 08:16 72 17 88/66 98 09/11/17 08:00 98 09/11/17 07:31 97.8 F 74 20 90/67 93 Intake and Output 09/11/17 09/12/17 09/12/17 21:59 05:59 13:59 Intake Total 420 / 420 261 / 261 100 / 100 Output Total 50 / 50 Balance 370 / 370 261 / 261 100 / 100 Intake: IV 120 / 120 211 / 211 100 / 100 Levophed 16 mg In Sodium 20 / 20 111 / 111 Chloride 0.9% 234 ml @ 10 MCG/ MIN 9.37 mls/hr IV Q24H [facility] Rx# :[id number] Oral 300 / 300 GI Tube Flush 50 / 50 Output: Stool 50 / 50 Other: Meal Dinner Percent of Meal Consumed 100% Stool Size Smear Stool Color Green Stool Consistency Liquid Weight 184 lb 12.8 oz Intake & Output: Intake & Output 09/11/17 09/12/17 09/12/17 21:59 05:59 13:59 Intake Total 420 / 420 261 / 261 100 / 100 Output Total 50 / 50 Balance 370 / 370 261 / 261 100 / 100 Weight 184 lb 12.8 oz Intake: IV 120 / 120 211 / 211 100 / 100 Levophed 16 mg In Sodium 20 / 20 111 / 111 Chloride 0.9% 234 ml @ 10 MCG/ MIN 9.37 mls/hr IV Q24H [facility] Rx# :[id number] Oral 300 / 300 GI Tube Flush 50 / 50 Output: Stool 50 / 50 Other: Meal Dinner Percent of Meal Consumed 100% Stool Size Smear Stool Color Green Stool Consistency Liquid - General Appearance General appearance: chronically ill, fatigue EENT: mucous membranes dry Neck: supple Respiratory: clear Cardiology: edema Gastrointestinal: hypoactive bowel sounds Integumentary: warm and dry, ulcer Neurologic: no focal deficit, alert and oriented x3 Musculoskeletal: no erythema, no cyanosis Psychiatric: mood/affect appropriate, cooperative - Lab 09/12/17 03:45 09/12/17 03:45 Most recent lab results Calcium 8.6 mg/dl (8.6-10.4) 09/12/17 03:45 Phosphorus 2.8 mg/dL (2.7-4.5) 09/12/17 03:45 Magnesium 1.7 mg/dL (1.6-2.5) 09/12/17 03:45 Assessment and Plan (1) ESRD (end stage renal disease) on dialysis Chronic hemodialysis through left arm AV fistula, at [facility], on TTS, followed by Dr Valentin. Hemodialysis today with 3 kg UF goal. Status: Chronic Priority: Medium (2) Anasarca Hemodialysis today with 3 kg UF goal. Status: Acute Priority: Medium (3) Anemia due to end stage renal disease Status: Chronic Priority: Medium (4) Secondary hyperparathyroidism of renal origin Status: Chronic Priority: Medium (5) Hypokalemia Hemodialysis with 4K today. Status: Resolved Priority: Medium (6) Septic shock due to Clostridium difficile Managed by hospitalist team. Status: Acute Priority: High
[2017-09-12] MEDS: MIDODRINE 5 MG TABLET PO SCH ×3 (07:51→17:27)
[2017-09-12] MEDS: SEVELAMER 800 MG TABLET PO SCH ×3 (07:51→17:27)
[2017-09-12] MEDS: POTASSIUM CHLORIDE 20 MEQ TABLET PO SCH ×2 (07:53→17:27)
[2017-09-12] MEDS: BUDESONIDE 0.5 MG/2 ML AMPUL.NEB NEB SCH ×2 (08:10→21:05)
[2017-09-12] MEDS: HEPARIN 5,000 UNIT/ML VIAL SQ SCH ×2 (11:43→21:21)
[2017-09-12] MEDS: VANCOMYCIN ORAL SOL 1,000 MG/10 ML BOTTLE PO SCH ×5 (11:44→22:49)
[2017-09-12] MEDS: NOREPINEPHRINE BITARTRATE 16 MG in 0.9 % SODIUM CHLORIDE 234 ML IV SCH (11:44)
[2017-09-12] MEDS: FLUoxetine HCL 20 MG CAPSULE PO SCH (12:31)
[2017-09-12] MEDS: CLOPIDOGREL 75 MG TABLET PO SCH (12:31)
[2017-09-12] MEDS: CYANOCOBALAMIN (VITAMIN B-12) 500 MCG TABLET PO SCH (12:31)
[2017-09-12] MEDS: FLUDROCORTISONE 0.1 MG TABLET PO SCH (12:32)
[2017-09-12] MEDS: ARIPIPRAZOLE 2 MG PO SCH (12:32)
--- NOTE | 2017-09-12 12:55 | General Surgery Progress Note ---
Subjective Patient reports: feels better, pain is less, tolerating liquids well, flatus, bowel movement, afebrile Narrative: Note initiated : 09/12/17 at 12:52 pm Service Date, if different from initiated Date: [] Patient: Naz Joseph 72 y/o F admitted on 09/08/17 for Hypotension/Small Bowel Obstruction. Chief Complaint: [Patient continues to do well from a GI standpoint. She denies abdominal pain and she does not have nausea. She is tolerating full liquid diet. Her bowel movements are regular with less volume. She is still having difficulty with hypotension but this is a chronic recurrent problem and probably is not related to her colitis.] Objective Temp Pulse Resp BP Pulse Ox 97.7 F 82 21 95/68 100 09/12/17 09:48 09/12/17 12:36 09/12/17 11:22 09/12/17 12:36 09/12/17 11:01 - Additional Data Intake & Output - Last 24 hours: Intake & Output 09/10/17 09/11/17 09/12/17 09/13/17 05:59 05:59 05:59 05:59 Intake Total 1391 / 1391 1947 / 1947 1882 / 1882 427 / 427 Output Total 0 / 0 3150 / 3150 3050 / 3050 2600 / 2600 Balance 1391 / 1391 -1203 / -1203 -1168 / -1168 -2173 / -2173 Weight 190 lb 1.28 oz 190 lb 4.143 oz 184 lb 12.8 oz - General physical appearance well developed, well nourished, no distress, chronically ill, obese - Eyes PERRL, normal ocular movement - ENT normal pinna, normal nares, normal mucosa, no hearing loss, no congestion - Neck no masses, no bruits, trachea midline, no lymphadectomy, no venous distension - Respiratory normal expansion, normal respiratory effort, clear to percussion, clear to auscultation - Cardiovascular Cardiovascular exam: Present: normal rate and rhythm, +S1, +S2. Absent: RRR - Abdomen non tender (Abdomen is nondistended and nontender; she has good active bowel sounds;), bowel sounds (present), surgical scars (none), masses (none) - Integumentary other (Chronic ecchymosis and bruising) - Neurologic normal coordination, normal sensation - Psychiatric oriented to time, oriented to person, oriented to place, speech is normal, memory intact - Labs 09/12/17 03:45 09/12/17 03:45 Diabetes panel 09/12/17 Range/Units 03:45 Sodium 137 (133-145) mmol/L Potassium 3.0 L (3.3-5.1) mmol/L Chloride 96 (96-108) mmol/L Carbon Dioxide 25 (22-30) mmol/L BUN 10 (8-23) mg/dl Creatinine 3.3 H (0.6-1.1) mg/dl Glucose 120 H (70-105) mg/dL Calcium 8.6 (8.6-10.4) mg/dl AST 11 (0-37) U/l ALT 7 (0-40) U/l Alkaline Phosphatase 59 (39-117) U/L Total Protein 5.6 L (5.9-8.4) gm/dL Albumin 3.0 L (3.2-5.2) gm/dL Triglycerides 77 (<150) mg/dl Calcium panel 09/12/17 Range/Units 03:45 Calcium 8.6 (8.6-10.4) mg/dl Phosphorus 2.8 (2.7-4.5) mg/dL Albumin 3.0 L (3.2-5.2) gm/dL Pituitary panel 09/12/17 Range/Units 03:45 Sodium 137 (133-145) mmol/L Potassium 3.0 L (3.3-5.1) mmol/L Chloride 96 (96-108) mmol/L Carbon Dioxide 25 (22-30) mmol/L BUN 10 (8-23) mg/dl Creatinine 3.3 H (0.6-1.1) mg/dl Glucose 120 H (70-105) mg/dL Calcium 8.6 (8.6-10.4) mg/dl Adrenal panel 09/12/17 Range/Units 03:45 Sodium 137 (133-145) mmol/L Potassium 3.0 L (3.3-5.1) mmol/L Chloride 96 (96-108) mmol/L Carbon Dioxide 25 (22-30) mmol/L BUN 10 (8-23) mg/dl Creatinine 3.3 H (0.6-1.1) mg/dl Glucose 120 H (70-105) mg/dL Calcium 8.6 (8.6-10.4) mg/dl Total Bilirubin 0.6 (0.0-1.0) mg/dL AST 11 (0-37) U/l ALT 7 (0-40) U/l Alkaline Phosphatase 59 (39-117) U/L Total Protein 5.6 L (5.9-8.4) gm/dL Albumin 3.0 L (3.2-5.2) gm/dL Assessment and Plan (1) Chronic diarrhea Status: Acute Assessment and plan: She does not have abdominal pain. C. difficile positive; Diet advance to renal diet Current Visit: Yes (2) Nausea and vomiting Status: Acute Assessment and plan: Diet advance to solid renal diet Current Visit: Yes (3) Anasarca Status: Acute Current Visit: Yes (4) Hypotension Status: Acute Assessment and plan: Presently being supported with levo fed Current Visit: Yes (5) ESRD (end stage renal disease) on dialysis Status: Chronic Current Visit: Yes (6) Ulcer of right knee Status: Acute Assessment and plan: Ulceration is unchanged and there is no evidence of acute inflammation at this time Current Visit: Yes - Time Spent With Patient Total time spent is greater than 50% in coordination of care (as documented) at patient's floor/unit and/or counseling patient:
[2017-09-12] MEDS: GENTAMICIN SULFATE 40 MG, CLINDAMYCIN 300 MG, BACITRACIN 25,000 UNIT in SODIUM CHLORIDE... IRR SCH ×2 (13:26→22:49)
[2017-09-12] MEDS: traZODone HCL 50 MG TABLET PO SCH (21:20)
[2017-09-12] MEDS: SENNOSIDES 1 TABLET PO SCH (21:21)
--- NOTE | 2017-09-12 23:44 | Internal Med Progress Note ---
Medical - PN: Subj Patient information: Note initiated : 09/12/17 at 11:37 pm Service Date, if different from initiated Date: [] Patient: Naz Joseph a 72 y/o F admitted on 09/08/17 for Hypotension/Small Bowel Obstruction. Interval history: Ms. Joseph is a 72 year old Female with h/o end-stage renal disease on dialysis follows with Dr. REAGAN, the patient presents to the emergency room after being sent from dialysis to the ER for low blood pressure. According to the patient she has not been well for the last 2 weeks. She has been weak, she fell down reports this as a mechanical fall and injured the right side of the knee. She developed a wound for which she has been followed by the wound care clinic. According to the patient history the swab taken from that wound was growing MRSA, patient is on Bactrim and Keflex for same. The patient has been having ongoing diarrhea for approximately last 1 week liquid watery dark green 4-5 episodes every day, she has been getting weaker and more fatigued. She has had decreased appetite and has not been eating or drinking very well. She also admits to be having some nausea. The patient reports that she is not able to ambulate well and finds it difficult to even get up and move around. She presented for dialysis at which point in time she was noted to have low blood pressures with systolic in 70s, he was therefore sent to the emergency room for further evaluation. The patient also notes that she has subjective sensations of chills and intermittent shakes which have been progressively getting worse over the last weeks. Has any documented fever, has chronic headaches worse now, no dizziness , no changes in vision, has dry mouth no difficulty in swallowing no changes in hearing, no neck swelling or lymphadenopathy no bleeding. She has shortness of breath on exertion which is far worse than her baseline. She denies any chest pain, has nausea no abdominal pain she had diarrhea over the last 1 week. The patient denies any acute joint swelling or joint pain besides the right knee. In the emergency room the patient was afebrile, heart rate 67 blood pressure 78/ 61, saturating 98% on room air, White blood cell count was 8.8 hemoglobin 12.9 platelets 155, sodium 138, potassium 2.9, bicarbonate 29 creatinine 4.6 glucose level was 81. The patient's x-ray of the abdomen showed possible small bowel obstruction, CT scan of the abdomen was done with contrast after consultation with nephrology and was tentatively reported as small bowel obstruction. Dr. Ricketts the general surgeon was consulted from the emergency room. He would be seeing the patient. The patient's right knee had an ulcer with erythema extending on the anterior aspect of the knee, on my exam there was fluctuation likely infected bursitis Given low blood pressure, which remained low despite 2 L of fluid resuscitation possible abscess, small bowel obstruction the patient has been admitted to the ICU for further management. September 09 Patient seen examined, feeling better, on Levophed, patient has no acute complaints, appreciate help from surgery as well as nephrology. X-ray abdomen repeated today. Patient is scheduled for dialysis today. Central line placed yesterday, CVP is elevated at 15-18. Echo ordered. Cdif positive. September 10 On Vanco po for C dif. Liquid diarrhea. Rectal tube in. Still profuse diarrhea. Will add Metronidazole IV Examined knee R with dr Pedraza. Don't think it's infected, or requires systemic antibiotics. Case d/w nephrology (dr Bynum): HD for fluid overload today. Still on Levophed gtt. September 11 HD today. CVP was 20. Was drinking lots of fluid. Now on fluid restriction. Levophed at 10. Still significant stool output, but more formed. Considering placement of femoral a-line, but should wait till C.dif resolved. Will increase Florinef from 0.05 q 48 hr to 0.1 daily September 12 Less stool out put. Tolerating full liquid diet. CVP 15. Levophed 8-10 mcg. HD 2-3 L off. Discussed the many problems with patient. Limited treatment options available if hypotension persists. - Constitutional Vitals: Vital Signs Temp Pulse Resp BP Pulse Ox 97.9 F 86 24 H 104/67 94 09/12/17 20:00 09/12/17 23:01 09/12/17 23:01 09/12/17 23:01 09/12/17 23:01 Period Temp Pulse Resp BP Sys/Millan Pulse Ox Last 24 Hr 97.7 F-98.5 F 79-92 12-27 67-111/51-92 81-100 Intake and Output 09/12/17 09/12/17 09/13/17 13:59 21:59 05:59 Intake Total 427 / 427 320 / 320 116 / 116 Output Total 2600 / 2600 Balance -2173 / -2173 320 / 320 116 / 116 Weight 187 lb 6.4 oz Patient Weight 09/13/17 05:59 Weight 187 lb 6.4 oz Intake & Output: Intake & Output 09/12/17 09/12/17 09/13/17 13:59 21:59 05:59 Intake Total 427 / 427 320 / 320 116 / 116 Output Total 2600 / 2600 Balance -2173 / -2173 320 / 320 116 / 116 Weight 187 lb 6.4 oz Intake: IV 177 / 177 100 / 100 116 / 116 Levophed 16 mg In Sodium 77 / 77 116 / 116 Chloride 0.9% 234 ml @ 10 MCG/ MIN 9.37 mls/hr IV Q24H [facility] Rx# :[id number] Oral 250 / 250 220 / 220 Output: Hemodialysis UF 2600 / 2600 Other: Meal Breakfast Dinner Percent of Meal Consumed 75% 75% Feeding Ability Assist with Tray Set Up Stool Size Moderate Stool Color Green Stool Consistency Soft # of times incontinent of 1 Bowels General appearance: no acute distress - Respiratory Respiratory exam: Present: normal respiratory exam - Cardiovascular Cardiovascular exam: Present: normal rate and rhythm - GI/Abdominal GI/Abdominal exam: Present: normal bowel sounds - Skin Additional comments: R knee ulcer, no drainage of pus. No erythema. Medical - PN: Obj Da - Labs CBC & Chem 7: 09/12/17 03:45 09/12/17 03:45 Labs: Abnormal Lab Results 09/12/17 09/12/17 09/11/17 03:45 03:45 03:40 RBC 3.27 L Hgb MCV 115.3 H MCH 38.0 H RDW 20.6 H Plt Count MPV 10.6 H Lymph % (Auto) 12.8 L Lymph # (Auto) 1.2 L Floyd # (Auto) 1.0 H Potassium 3.0 L Anion Gap Creatinine 3.3 H Glucose 120 H C-Reactive Protein 3.3 H Total Protein 5.6 L Albumin 3.0 L Globulin Prealbumin 7.2 L 09/11/17 09/11/17 09/10/17 03:40 03:40 04:00 RBC 3.18 L Hgb 11.9 L MCV 115.1 H MCH 37.3 H RDW 21.2 H Plt Count 133 L MPV 10.9 H Lymph % (Auto) Lymph # (Auto) Floyd # (Auto) Potassium 3.0 L Anion Gap 18.0 H Creatinine 3.7 H 4.0 H Glucose 110 H C-Reactive Protein Total Protein 5.1 L 5.5 L Albumin 3.0 L 2.9 L Globulin 2.1 L Prealbumin 09/10/17 04:00 RBC 3.29 L Hgb MCV 115.3 H MCH 37.5 H RDW 20.9 H Plt Count MPV 11.0 H Lymph % (Auto) Lymph # (Auto) Floyd # (Auto) Potassium Anion Gap Creatinine Glucose C-Reactive Protein Total Protein Albumin Globulin Prealbumin Meds: Medications Acetaminophen (Tylenol) 650 mg PO Q4-6HP PRN PRN Reason: PAIN/FEVER > 101 Last Admin: 09/11/17 12:11 Dose: 650 mg Budesonide (Pulmicort) 0.5 mg NEB Q12 [facility] Last Admin: 09/12/17 21:05 Dose: 0.5 mg Clopidogrel Bisulfate (Plavix) 75 mg PO DAILY [facility] Last Admin: 09/12/17 12:31 Dose: 75 mg Cyanocobalamin (Vitamin B-12) 1,000 mcg PO DAILY [facility] Last Admin: 09/12/17 12:31 Dose: 1,000 mcg Dextrose (Dextrose 50%) 0 ml IV UD PRN PRN Reason: Hypoglycemia Last Admin: 09/09/17 01:10 Dose: 25 ml Diagnostic Test (Pha) (Accu-Chek) 1 each FS Q6 [facility] Last Admin: 09/12/17 17:27 Dose: 1 each Fludrocortisone Acetate (Florinef) 0.1 mg PO DAILY [facility] Last Admin: 09/12/17 12:32 Dose: 0.1 mg Fluoxetine HCl (Prozac) 40 mg PO DAILY [facility] Last Admin: 09/12/17 12:31 Dose: 40 mg Heparin Sodium (Porcine) (Heparin) 5,000 unit SQ Q12 [facility] Last Admin: 09/12/17 21:21 Dose: 5,000 unit Hydromorphone HCl (Dilaudid) 2 mg PO Q8HP PRN PRN Reason: Pain Last Admin: 09/12/17 02:55 Dose: 2 mg Norepinephrine Bitartrate 16 (mg/ Sodium Chloride) 250 mls @ 9.37 mls/hr IV Q24H [facility]; 10 MCG/MIN PRN Reason: Protocol Last Titration: 09/12/17 23:09 Dose: 8 mcg/min, 7.5 mls/hr Gentamicin Sulfate 40 mg/Clindamycin Phosphate 300 mg/Bacitracin 25,000 unit/ Sodium Chloride 503 mls @ 0 mls/hr IRR BID [facility] PRN Reason: As Directed Last Admin: 09/12/17 22:49 Dose: 1 mls/hr Metronidazole (Flagyl) 500 mg in 100 mls @ 100 mls/hr IV Q8H [facility] Last Admin: 09/12/17 22:49 Dose: 100 mls/hr Insulin Human Lispro (Humalog) 0 unit SQ Q6 [facility] PRN Reason: Protocol Last Admin: 09/12/17 17:28 Dose: Not Given Lorazepam (Ativan) 0.5 mg IV Q4HP PRN PRN Reason: Anxiety Last Admin: 09/09/17 21:19 Dose: 0.5 mg Midodrine (Midodrine Hcl) 10 mg PO TID@0800,1200,1700 [facility] Last Admin: 09/12/17 17:27 Dose: 10 mg Aripiprazole [ Aripiprazole] 2 Mg Tablet 2 mg PO QDAY [facility] Last Admin: 09/12/17 12:32 Dose: 2 mg Potassium Chloride (Kdur) 20 meq PO BIDCC [facility] Last Admin: 09/12/17 17:27 Dose: 20 meq Senna (Senokot) 1 tab PO [facility] Last Admin: 09/12/17 21:21 Dose: Not Given Sevelamer Carbonate (Renvela) 800 mg PO TIDAC [facility] Last Admin: 09/12/17 17:27 Dose: 800 mg Sodium Chloride (Saline Flush) 10 ml IV Q8 [facility] Last Admin: 09/12/17 22:50 Dose: 10 ml Sodium Chloride (Saline Flush) 10 ml IV Q12 [facility] Last Admin: 09/12/17 21:21 Dose: 10 ml Trazodone HCl (Desyrel) 250 mg PO HS [facility] Last Admin: 09/12/17 21:20 Dose: 250 mg Vancomycin HCl (Vancomycin Oral Lizy) 125 mg PO QID [facility] Last Admin: 09/12/17 22:49 Dose: 125 mg Medical - PN: A/P - Time Spent With Patient Total time spent is greater than 50% in coordination of care (as documented) at patient's floor/unit and/or counseling patient: less than 15 minutes - Narrative A/P Narrative: + Hypotension : despite 2 L fluids, likely from dehydration and infection, treat underlying infection, IV fluids, central line placed. Usually takes midodrine at home, but this time despite 2 doses, bp remained low. No evidence of sepsis, but has C.dif colitis. On Vanco po and Flagyl IV since . No blood cultures were obtained on admissions. On Midodrine and Florinef. Dose Florinef increased 09/11 to 0.1 mg daily + Small bowel obstruction? More likely C.dif colitis. Appreciate dr Ricketts's help. On full liquid diet + Diarrhea: positive for C dif toxin. Vanco po started 09/09 and added Flagyl IV 09/10 + Right knee bursitis/ Open wound: Possibly infected bursits vs hematoma vs reactionary swelling , get X Ray of the knee is reported negative. Wound inspection done with dr Pedraza 09/10. No indication for systemic antibiotics. Vanco IV discontinued. Local antibiotics. + Wound, Knee/ elbow. MRSA pos. Most likely colonization vs infection. + Hypokalemia: due to poor oral intake, monitor for now, Pt is ESRD on HD, will replace after central line placed. K better today + ESRD on HD, followed by Dr Reagan, pt is being followed by [facility] for now, HD planned for today. + COPD: No wheezing on exam to continue bronchodilators, neg cxr for pna + Fibromyalgia/ Chr pain: Resume home meds once verified. + CAD no chest pain, on plavix, continue same DVT hep sq DNR code status.
[2017-09-13] MEDS: INSULIN LISPRO 1 UNIT/0.01 ML UNIT SQ SCH ×5 (00:12→23:40)
[2017-09-13] MEDS ORDERED: ONDANSETRON 4 MG/2 ML VIAL ONE (02:32)
[2017-09-13] MEDS: ONDANSETRON 4 MG/2 ML VIAL IV PRN ×4 (02:33→17:53)
[2017-09-13] MEDS: HYDROmorphone 2 MG TABLET PO PRN ×3 (05:47→17:53)
[2017-09-13] MEDS: metroNIDAZOLE 500 MG/100 ML BAG IV SCH ×3 (05:51→21:16)
[2017-09-13] MEDS: 0.9 % SODIUM CHLORIDE 10 ML SYRINGE IV SCH ×8 (05:53→21:17)
[2017-09-13 06:31] LABS: Basophils # (Auto) 0 K/mcL (0.0-0.3); Basophils % (Auto) 0 % (0.0-2.0); Eosinophils # (Auto) 0.3 K/mcL (0.0-0.7); Eosinophils % (Auto) 2.9 % (0.0-7.0); Lymphocytes # (Auto) 0.9 K/mcL (1.5-4.8); Lymphocytes % (Auto) 9.4 % (15.5-49.0); Mean Cell Volume 115.6 fL (80.0-100.0); Mean Corpuscular HGB Conc 32.8 g/dL (31.0-36.0); Mean Corpuscular Hemoglobin 37.9 pg (26.0-34.0); Monocytes # (Auto) 0.9 K/mcL (0.1-0.9); Monocytes % (Auto) 9.7 % (1.0-12.0); Platelet Count 158 K/mcL (140-440); RBC 3.38 M/mcL (4.00-5.20); Red Cell Distribution Width 22.2 % (11.5-14.5)
[2017-09-13 07:00] LABS: ALT/SGPT 7 U/l (0-40); Albumin 3.1 gm/dL (3.2-5.2); Albumin/Globulin Ratio 1.1 (1.0-2.3); Alkaline Phosphatase 59 U/L (39-117); Bilirubin,Direct 0.3 mg/dL (0.0-0.3); Blood Urea Nitrogen 11 mg/dl (8-23); Gamma Glutamyl Transpeptidase 16 U/L (5-36); Uric Acid 3.6 mg/dL (2.5-8.0)
--- NOTE | 2017-09-13 08:28 | XRay Report ---
CLINICAL INFORMATION: Abdominal pain nausea and vomiting. History of small bowel obstruction COMPARISON: 09/09/2017 plain films FINDINGS: The GI tract is decompressed with small amounts of gas confined to the stomach and a single segment of upper small bowel. The rest of the small and large bowel appear gasless. There is no free air, soft tissue mass or organomegaly. Few small calcifications overlying both kidneys could indicate small nonobstructing stones IMPRESSION: Decompressed GI tract suggesting poor oral intake, vomiting or diarrhea. No plain film evidence of recurrent bowel obstruction Possible small nonobstructing stones - both kidneys Interpreted and Authenticated by: Fortino Mendoza 09/13/17
[2017-09-13] MEDS: SEVELAMER 800 MG TABLET PO SCH ×3 (08:34→17:48)
[2017-09-13] MEDS: ACETAMINOPHEN 1,000 MG/100 ML BOTTLE IV PRN (09:05)
[2017-09-13] MEDS ORDERED: PROMETHAZINE 25 MG/ML VIAL IV ONE (09:08)
[2017-09-13] MEDS: PANTOPRAZOLE 40 MG VIAL IV SCH ×3 (09:21→16:32)
[2017-09-13] MEDS: BUDESONIDE 0.5 MG/2 ML AMPUL.NEB NEB SCH ×2 (09:24→20:34)
[2017-09-13] MEDS: MIDODRINE 5 MG TABLET PO SCH ×3 (11:43→16:33)
[2017-09-13] MEDS: POTASSIUM CHLORIDE 20 MEQ TABLET PO SCH ×2 (11:43→17:48)
[2017-09-13] MEDS: ARIPIPRAZOLE 2 MG PO SCH (11:44)
[2017-09-13] MEDS: FLUDROCORTISONE 0.1 MG TABLET PO SCH (11:44)
[2017-09-13] MEDS: CYANOCOBALAMIN (VITAMIN B-12) 500 MCG TABLET PO SCH (11:45)
[2017-09-13] MEDS: VANCOMYCIN ORAL SOL 1,000 MG/10 ML BOTTLE PO SCH ×4 (11:45→21:14)
[2017-09-13] MEDS: GENTAMICIN SULFATE 40 MG, CLINDAMYCIN 300 MG, BACITRACIN 25,000 UNIT in SODIUM CHLORIDE... IRR SCH ×2 (11:53→21:12)
[2017-09-13] MEDS: HEPARIN 5,000 UNIT/ML VIAL SQ SCH ×2 (11:53→21:11)
[2017-09-13] MEDS: CLOPIDOGREL 75 MG TABLET PO SCH (11:55)
[2017-09-13] MEDS: FLUoxetine HCL 20 MG CAPSULE PO SCH (11:55)
[2017-09-13] MEDS ORDERED: PROMETHAZINE 25 MG/ML VIAL IV PRN (12:16)
[2017-09-13] MEDS: NOREPINEPHRINE BITARTRATE 16 MG in 0.9 % SODIUM CHLORIDE 234 ML IV SCH (13:21)
[2017-09-13] MEDS: 0.9 % SODIUM CHLORIDE 250 ML IV SCH (13:36)
--- NOTE | 2017-09-13 16:01 | Nephrology Progress Note ---
Subjective Patient information: Note initiated : 09/13/17 at 3:28 pm Service Date, if different from initiated Date: [] Patient: Naz Joseph 72 y/o F admitted on 09/08/17 for Hypotension/Small Bowel Obstruction. Chief Complaint: [] Principal diagnosis: End stage renal disease on chronic hemodialysis Interval history: Note in error, please find detailed note on same date in the chart Objective - Vital Signs Vital signs: Vital Signs Temp Pulse Resp BP Pulse Ox 09/13/17 12:16 19 92/69 09/13/17 12:01 98 F 49 L 21 94/68 93 09/13/17 11:45 19 97/73 09/13/17 11:30 21 95/73 09/13/17 11:15 19 93/66 09/13/17 11:01 79 23 H 94/68 99 09/13/17 10:53 80 22 98/69 100 09/13/17 10:46 80 21 84/47 100 09/13/17 10:31 78 19 103/78 98 09/13/17 10:15 77 18 98/69 96 09/13/17 10:01 79 19 101/73 96 09/13/17 09:45 79 24 H 110/79 98 09/13/17 09:31 22 105/78 09/13/17 09:15 28 H 107/78 09/13/17 09:02 17 99/65 96 09/13/17 09:00 23 H 89/64 09/13/17 08:59 18 90/56 09/13/17 08:57 22 107/74 09/13/17 08:45 19 99/72 09/13/17 08:31 19 96/69 09/13/17 08:15 23 H 83/65 09/13/17 08:01 97.6 F 24 H 87/63 97 09/13/17 07:45 24 H 101/76 09/13/17 07:30 25 H 105/77 09/13/17 07:17 27 H 96/73 09/13/17 07:01 23 H 91/72 09/13/17 06:46 80 22 98/71 91 09/13/17 06:31 79 21 94/66 96 09/13/17 06:16 82 27 H 90/64 93 09/13/17 06:01 81 23 H 89/61 88 L 09/13/17 06:00 79 22 92 09/13/17 05:46 79 21 95/66 91 09/13/17 05:31 85 22 102/71 93 09/13/17 05:15 85 21 103/72 96 09/13/17 05:01 24 H 09/13/17 05:00 22 93/70 96 09/13/17 04:49 18 09/13/17 04:48 25 H 72/62 09/13/17 04:46 20 47/38 09/13/17 04:31 75 23 H 76/62 96 09/13/17 04:25 78 21 92/61 97 09/13/17 04:02 77 20 97 09/13/17 04:01 97.9 F 79 20 94/64 97 09/13/17 04:00 79 23 H 98 09/13/17 03:31 79 23 H 92/66 97 09/13/17 03:01 76 23 H 86/64 96 09/13/17 03:00 79 22 98 09/13/17 02:32 85 23 H 86/64 97 09/13/17 02:31 86 20 87/63 96 09/13/17 02:01 85 20 101/89 94 09/13/17 02:00 81 18 97 09/13/17 01:32 80 21 96 09/13/17 01:31 82 21 98/69 96 09/13/17 01:01 82 22 95 09/13/17 01:00 84 23 H 95/67 96 09/13/17 00:31 80 22 91/63 95 09/13/17 00:02 82 22 95 09/13/17 00:01 98.1 F 83 23 H 95/71 94 09/13/17 00:00 82 20 95 09/12/17 23:32 82 22 94 09/12/17 23:31 82 24 H 98/66 94 09/12/17 23:02 86 21 95 09/12/17 23:01 86 24 H 104/67 94 09/12/17 23:00 87 23 H 95 09/12/17 22:31 86 20 96/67 98 09/12/17 22:23 87 20 102/65 96 09/12/17 22:01 87 23 H 109/71 96 09/12/17 22:00 86 22 96 03/28/18 21:30 88 20 107/76 96 09/12/17 21:12 89 12 09/12/17 21:02 89 21 88 L 09/12/17 21:01 90 19 95/72 90 09/12/17 21:00 89 20 90 09/12/17 20:31 19 98/64 09/12/17 20:01 88 24 H 90/69 89 L 09/12/17 20:00 97.9 F 89 16 91 09/12/17 19:31 87 18 94/59 96 09/12/17 19:03 86 15 89 L 09/12/17 19:02 87 13 89/64 81 L 09/12/17 19:00 92 H 12 91 09/12/17 18:31 90 22 89/70 91 09/12/17 18:01 88 21 93/70 90 09/12/17 18:00 89 16 93 09/12/17 17:31 87 20 97/70 94 09/12/17 17:03 80 18 87 L 09/12/17 17:02 86 22 99/69 95 09/12/17 17:00 86 23 H 97 09/12/17 16:31 87 20 98/69 94 09/12/17 16:09 19 100/69 09/12/17 16:00 98.5 F 19 Intake and Output 09/13/17 09/13/17 09/13/17 05:59 13:59 21:59 Intake Total 257 / 257 235 / 235 Output Total 100 / 100 400 / 400 Balance 157 / 157 -165 / -165 Intake: IV 257 / 257 235 / 235 Levophed 16 mg In Sodium 157 / 157 35 / 35 Chloride 0.9% 234 ml @ 10 MCG/ MIN 9.37 mls/hr IV Q24H [facility] Rx# :[id number] Output: Emesis 100 / 100 400 / 400 Other: Stool Size Small Stool Color Green Stool Consistency Liquid Loose # Bowel Movements 1 Intake & Output: Intake & Output 09/13/17 09/13/17 09/13/17 05:59 13:59 21:59 Intake Total 257 / 257 235 / 235 Output Total 100 / 100 400 / 400 Balance 157 / 157 -165 / -165 Intake: IV 257 / 257 235 / 235 Levophed 16 mg In Sodium 157 / 157 35 / 35 Chloride 0.9% 234 ml @ 10 MCG/ MIN 9.37 mls/hr IV Q24H [facility] Rx# :[id number] Output: Emesis 100 / 100 400 / 400 Other: Stool Size Small Stool Color Green Stool Consistency Liquid Loose # Bowel Movements 1 - Lab 09/25/17 06:30 09/25/17 06:30 Most recent lab results Calcium 9.3 mg/dl (8.6-10.4) 09/13/17 03:59 Phosphorus 3.0 mg/dL (2.7-4.5) 09/13/17 03:59 Magnesium 1.9 mg/dL (1.6-2.5) 09/13/17 03:59
--- NOTE | 2017-09-13 16:44 | Internal Med Progress Note ---
Medical - PN: Subj Patient information: Note initiated : 09/13/17 at 4:41 pm Service Date, if different from initiated Date: [] Patient: Naz Joseph 72 y/o F admitted on 09/08/17 for Hypotension/Small Bowel Obstruction. Interval history: Ms. Joseph is a 72 year old Female with h/o end-stage renal disease on dialysis follows with Dr. REAGAN, the patient presents to the emergency room after being sent from dialysis to the ER for low blood pressure. According to the patient she has not been well for the last 2 weeks. She has been weak, she fell down reports this as a mechanical fall and injured the right side of the knee. She developed a wound for which she has been followed by the wound care clinic. According to the patient history the swab taken from that wound was growing MRSA, patient is on Bactrim and Keflex for same. The patient has been having ongoing diarrhea for approximately last 1 week liquid watery dark green 4-5 episodes every day, she has been getting weaker and more fatigued. She has had decreased appetite and has not been eating or drinking very well. She also admits to be having some nausea. The patient reports that she is not able to ambulate well and finds it difficult to even get up and move around. She presented for dialysis at which point in time she was noted to have low blood pressures with systolic in 70s, he was therefore sent to the emergency room for further evaluation. The patient also notes that she has subjective sensations of chills and intermittent shakes which have been progressively getting worse over the last weeks. Has any documented fever, has chronic headaches worse now, no dizziness , no changes in vision, has dry mouth no difficulty in swallowing no changes in hearing, no neck swelling or lymphadenopathy no bleeding. She has shortness of breath on exertion which is far worse than her baseline. She denies any chest pain, has nausea no abdominal pain she had diarrhea over the last 1 week. The patient denies any acute joint swelling or joint pain besides the right knee. In the emergency room the patient was afebrile, heart rate 67 blood pressure 78/ 61, saturating 98% on room air, White blood cell count was 8.8 hemoglobin 12.9 platelets 155, sodium 138, potassium 2.9, bicarbonate 29 creatinine 4.6 glucose level was 81. The patient's x-ray of the abdomen showed possible small bowel obstruction, CT scan of the abdomen was done with contrast after consultation with nephrology and was tentatively reported as small bowel obstruction. Dr. Ricketts the general surgeon was consulted from the emergency room. He would be seeing the patient. The patient's right knee had an ulcer with erythema extending on the anterior aspect of the knee, on my exam there was fluctuation likely infected bursitis Given low blood pressure, which remained low despite 2 L of fluid resuscitation possible abscess, small bowel obstruction the patient has been admitted to the ICU for further management. September 09 Patient seen examined, feeling better, on Levophed, patient has no acute complaints, appreciate help from surgery as well as nephrology. X-ray abdomen repeated today. Patient is scheduled for dialysis today. Central line placed yesterday, CVP is elevated at 15-18. Echo ordered. Cdif positive. September 10 On Vanco po for C dif. Liquid diarrhea. Rectal tube in. Still profuse diarrhea. Will add Metronidazole IV Examined knee R with dr Pedraza. Don't think it's infected, or requires systemic antibiotics. Case d/w nephrology (dr Bynum): HD for fluid overload today. Still on Levophed gtt. September 11 HD today. CVP was 20. Was drinking lots of fluid. Now on fluid restriction. Levophed at 10. Still significant stool output, but more formed. Considering placement of femoral a-line, but should wait till C.dif resolved. Will increase Florinef from 0.05 q 48 hr to 0.1 daily September 12 Less stool out put. Tolerating full liquid diet. CVP 15. Levophed 8-10 mcg. HD 2-3 L off. Discussed the many problems with patient. Limited treatment options available if hypotension persists. September 13 Abdominal pain and severe nausea this am. KUB: no evidence of obstruction On Levo 5 - Constitutional Vitals: Vital Signs Temp Pulse Resp BP Pulse Ox 98 F 49 L 19 92/69 93 09/13/17 12:01 09/13/17 12:01 09/13/17 12:16 09/13/17 12:16 09/13/17 12:01 Period Temp Pulse Resp BP Sys/Millan Pulse Ox Last 24 Hr 97.6 F-98.1 F 49-92 12- 47-110/38-89 81-100 Intake and Output 09/13/17 09/13/17 09/13/17 05:59 13:59 21:59 Intake Total 257 / 257 235 / 235 100 / 100 Output Total 100 / 100 400 / 400 Balance 157 / 157 -165 / -165 100 / 100 Weight 187 lb 6.4 oz Patient Weight 09/14/17 05:59 Weight 187 lb 6.4 oz Intake & Output: Intake & Output 09/13/17 09/13/17 09/13/17 05:59 13:59 21:59 Intake Total 257 / 257 235 / 235 100 / 100 Output Total 100 / 100 400 / 400 Balance 157 / 157 -165 / -165 100 / 100 Weight 187 lb 6.4 oz Intake: IV 257 / 257 235 / 235 100 / 100 Levophed 16 mg In Sodium 157 / 157 35 / 35 Chloride 0.9% 234 ml @ 10 MCG/ MIN 9.37 mls/hr IV Q24H [facility] Rx# :[id number] Output: Emesis 100 / 100 400 / 400 Other: Stool Size Small Stool Color Green Stool Consistency Liquid Loose # Bowel Movements 1 General appearance: mild distress - Respiratory Respiratory exam: Present: decreased breath sounds - Cardiovascular Cardiovascular exam: Present: normal rate and rhythm - GI/Abdominal GI/Abdominal exam: Present: normal bowel sounds, soft Medical - PN: Obj Da - Labs CBC & Chem 7: 09/13/17 03:59 09/13/17 03:59 Labs: Abnormal Lab Results 09/13/17 09/13/17 09/12/17 03:59 03:59 03:45 RBC 3.38 L Hgb MCV 115.6 H MCH 37.9 H RDW 22.2 H Plt Count MPV Lymph % (Auto) 9.4 L Lymph # (Auto) 0.9 L [place] # (Auto) Potassium 3.0 L Creatinine 3.6 H 3.3 H Glucose 128 H 120 H C-Reactive Protein Total Protein 5.6 L Albumin 3.1 L 3.0 L Globulin Prealbumin 09/12/17 09/11/17 09/11/17 03:45 03:40 03:40 RBC 3.27 L Hgb MCV 115.3 H MCH 38.0 H RDW 20.6 H Plt Count MPV 10.6 H Lymph % (Auto) 12.8 L Lymph # (Auto) 1.2 L [place] # (Auto) 1.0 H Potassium Creatinine 3.7 H Glucose 110 H C-Reactive Protein 3.3 H Total Protein 5.1 L Albumin 3.0 L Globulin 2.1 L Prealbumin 7.2 L 09/11/17 03:40 RBC 3.18 L Hgb 11.9 L MCV 115.1 H MCH 37.3 H RDW 21.2 H Plt Count 133 L MPV 10.9 H Lymph % (Auto) Lymph # (Auto) [place] # (Auto) Potassium Creatinine Glucose C-Reactive Protein Total Protein Albumin Globulin Prealbumin Meds: Medications Acetaminophen (Tylenol) 650 mg PO Q4-6HP PRN PRN Reason: PAIN/FEVER > 101 Last Admin: 09/11/17 12:11 Dose: 650 mg Budesonide (Pulmicort) 0.5 mg NEB Q12 [facility] Last Admin: 09/13/17 09:24 Dose: Not Given Clopidogrel Bisulfate (Plavix) 75 mg PO DAILY [facility] Last Admin: 09/13/17 11:55 Dose: 75 mg Cyanocobalamin (Vitamin B-12) 1,000 mcg PO DAILY [facility] Last Admin: 09/13/17 11:45 Dose: Not Given Dextrose (Dextrose 50%) 0 ml IV UD PRN PRN Reason: Hypoglycemia Last Admin: 09/09/17 01:10 Dose: 25 ml Diagnostic Test (Pha) (Accu-Chek) 1 each FS Q6 [facility] Last Admin: 09/13/17 12:31 Dose: 1 each Fludrocortisone Acetate (Florinef) 0.1 mg PO DAILY [facility] Last Admin: 09/13/17 11:44 Dose: Not Given Fluoxetine HCl (Prozac) 40 mg PO DAILY [facility] Last Admin: 09/13/17 11:55 Dose: 40 mg Heparin Sodium (Porcine) (Heparin) 5,000 unit SQ Q12 [facility] Last Admin: 09/13/17 11:53 Dose: 5,000 unit Hydromorphone HCl (Dilaudid) 2 mg PO Q8HP PRN PRN Reason: Pain Last Admin: 09/13/17 06:30 Dose: 2 mg Norepinephrine Bitartrate 16 (mg/ Sodium Chloride) 250 mls @ 9.37 mls/hr IV Q24H [facility]; 10 MCG/MIN PRN Reason: Protocol Last Admin: 09/13/17 13:21 Dose: 5 mcg/min, 4.68 mls/hr Gentamicin Sulfate 40 mg/Clindamycin Phosphate 300 mg/Bacitracin 25,000 unit/ Sodium Chloride 503 mls @ 0 mls/hr IRR BID [facility] PRN Reason: As Directed Last Admin: 09/13/17 11:53 Dose: 1 mls/hr Metronidazole (Flagyl) 500 mg in 100 mls @ 100 mls/hr IV Q8H [facility] Last Infusion: 09/13/17 14:25 Dose: Infused Acetaminophen (Ofirmev) 1,000 mg in 100 mls @ 200 mls/hr IV Q6HP PRN PRN Reason: PAIN/FEVER > 101 Last Infusion: 09/13/17 09:35 Dose: Infused Sodium Chloride (Sodium Chloride 0.9%) 250 mls @ 20 mls/hr IV .[id number] [facility] Last Admin: 09/13/17 13:36 Dose: 16 mls/hr Insulin Human Lispro (Humalog) 0 unit SQ Q6 [facility] PRN Reason: Protocol Last Admin: 09/13/17 12:32 Dose: Not Given Lorazepam (Ativan) 0.5 mg IV Q4HP PRN PRN Reason: Anxiety Last Admin: 09/09/17 21:19 Dose: 0.5 mg Midodrine (Midodrine Hcl) 10 mg PO TID@0800,1200,1700 [facility] Last Admin: 09/13/17 16:33 Dose: 10 mg Aripiprazole [ Aripiprazole] 2 Mg Tablet 2 mg PO QDAY [facility] Last Admin: 09/13/17 11:44 Dose: Not Given Ondansetron HCl (Zofran) 4 mg IV Q4-6HP PRN PRN Reason: Nausea And Vomiting Last Admin: 09/13/17 11:53 Dose: 4 mg Pantoprazole Sodium (Protonix) 40 mg IV BIDAC [facility] Last Admin: 09/13/17 16:32 Dose: 40 mg Potassium Chloride (Kdur) 20 meq PO BIDCC [facility] Last Admin: 09/13/17 11:43 Dose: Not Given Promethazine HCl (Phenergan) 12.5 mg IV Q6-8HP PRN PRN Reason: Nausea And Vomiting Last Admin: 09/13/17 16:26 Dose: 12.5 mg Senna (Senokot) 1 tab PO HS [facility] Last Admin: 09/12/17 21:21 Dose: Not Given Sevelamer Carbonate (Renvela) 800 mg PO TIDAC [facility] Last Admin: 09/13/17 13:21 Dose: Not Given Sodium Chloride (Saline Flush) 10 ml IV Q8 [facility] Last Admin: 09/13/17 16:26 Dose: 10 ml Sodium Chloride (Saline Flush) 10 ml IV Q12 [facility] Last Admin: 09/13/17 10:05 Dose: Not Given Trazodone HCl (Desyrel) 250 mg PO HS [facility] Last Admin: 09/12/17 21:20 Dose: 250 mg Vancomycin HCl (Vancomycin Oral Lizy) 125 mg PO QID [facility] Last Admin: 09/13/17 16:32 Dose: 125 mg Medical - PN: A/P - Time Spent With Patient Total time spent is greater than 50% in coordination of care (as documented) at patient's floor/unit and/or counseling patient: less than 15 minutes - Narrative A/P Narrative: + Hypotension : despite 2 L fluids, likely from dehydration and infection, treat underlying infection, IV fluids, central line placed. Usually takes midodrine at home, but this time despite 2 doses, bp remained low. No evidence of sepsis, but has C.dif colitis. On Vanco po and Flagyl IV since . No blood cultures were obtained on admissions. On Midodrine and Florinef. Dose Florinef increased 09/11 to 0.1 mg daily + Small bowel obstruction? More likely C.dif colitis. Appreciate dr Ricketts's help. On full liquid diet + Diarrhea: positive for C dif toxin. Vanco po started 09/09 and added Flagyl IV 09/10 + Right knee bursitis/ Open wound: Possibly infected bursits vs hematoma vs reactionary swelling , get X Ray of the knee is reported negative. Wound inspection done with dr Pedraza 09/10. No indication for systemic antibiotics. Vanco IV discontinued. Local antibiotics. + Wound, Knee/ elbow. MRSA pos. Most likely colonization vs infection. + Hypokalemia: due to poor oral intake, monitor for now, Pt is ESRD on HD, will replace after central line placed. K better today + ESRD on HD, followed by Dr Reagan, pt is being followed by [facility] for now, HD planned for today. + COPD: No wheezing on exam to continue bronchodilators, neg cxr for pna + Fibromyalgia/ Chr pain: Resume home meds once verified. + CAD no chest pain, on plavix, continue same DVT hep sq DNR code status.
--- NOTE | 2017-09-13 17:08 | Nephrology Progress Note ---
Subjective Patient information: Note initiated : 09/13/17 at 5:05 pm Service Date, if different from initiated Date: [] Patient: Naz Joseph 72 y/o F admitted on 09/08/17 for Hypotension/Small Bowel Obstruction. Chief Complaint: [] Principal diagnosis: End stage renal disease on chronic hemodialysis Interval history: Patient seen this am She has had nausea, vomiting since last night no response to zofran, did respond to phenergan and also PPI resumed awaiting surgery opinion, though repeat abdominal Xray shows no obstruction no worsening SOB remains on levophed, could not take her midodrine today Pertinent ROS: as above Objective - Vital Signs Vital signs: Vital Signs Temp Pulse Resp BP Pulse Ox 09/13/17 16:48 25 H 91/60 09/13/17 16:31 22 124/97 09/13/17 16:16 19 100/63 09/13/17 16:01 98.2 F 13 102/69 96 09/13/17 15:46 19 93/66 09/13/17 15:31 18 92/71 09/13/17 15:16 21 97/67 09/13/17 15:01 17 99/66 09/13/17 14:46 18 89/66 09/13/17 14:31 18 95/67 09/13/17 14:16 18 106/71 09/13/17 14:01 17 98/71 09/13/17 13:46 17 96/66 09/13/17 13:30 21 101/76 09/13/17 13:16 19 97/66 09/13/17 13:00 18 95/67 09/13/17 12:45 20 101/75 09/13/17 12:31 17 92/71 09/13/17 12:16 19 92/69 09/13/17 12:01 98 F 49 L 21 94/68 93 09/13/17 11:45 19 97/73 09/13/17 11:30 21 95/73 09/13/17 11:15 19 93/66 09/13/17 11:01 79 23 H 94/68 99 09/13/17 10:53 80 22 98/69 100 09/13/17 10:46 80 21 84/47 100 09/13/17 10:31 78 19 103/78 98 09/13/17 10:15 77 18 98/69 96 09/13/17 10:01 79 19 101/73 96 09/13/17 09:45 79 24 H 110/79 98 09/13/17 09:31 22 105/78 09/13/17 09:15 28 H 107/78 09/13/17 09:02 17 99/65 96 09/13/17 09:00 23 H 89/64 09/13/17 08:59 18 90/56 09/13/17 08:57 22 107/74 09/13/17 08:45 19 99/72 09/13/17 08:31 19 96/69 09/13/17 08:15 23 H 83/65 09/13/17 08:01 97.6 F 24 H 87/63 97 09/13/17 07:45 24 H 101/76 09/13/17 07:30 25 H 105/77 09/13/17 07:17 27 H 96/73 09/13/17 07:01 23 H 91/72 09/13/17 06:46 80 22 98/71 91 09/13/17 06:31 79 21 94/66 96 09/13/17 06:16 82 27 H 90/64 93 09/13/17 06:01 81 23 H 89/61 88 L 09/13/17 06:00 79 22 92 09/13/17 05:46 79 21 95/66 91 09/13/17 05:31 85 22 102/71 93 09/13/17 05:15 85 21 103/72 96 09/13/17 05:01 24 H 09/13/17 05:00 22 93/70 96 09/13/17 04:49 18 09/13/17 04:48 25 H 72/62 09/13/17 04:46 20 47/38 09/13/17 04:31 75 23 H 76/62 96 09/13/17 04:25 78 21 92/61 97 09/13/17 04:02 77 20 97 09/13/17 04:01 97.9 F 79 20 94/64 97 09/13/17 04:00 79 23 H 98 09/13/17 03:31 79 23 H 92/66 97 09/13/17 03:01 76 23 H 86/64 96 09/13/17 03:00 79 22 98 09/13/17 02:32 85 23 H 86/64 97 09/13/17 02:31 86 20 87/63 96 09/13/17 02:01 85 20 101/89 94 09/13/17 02:00 81 18 97 09/13/17 01:32 80 21 96 09/13/17 01:31 82 21 98/69 96 09/13/17 01:01 82 22 95 09/13/17 01:00 84 23 H 95/67 96 09/13/17 00:31 80 22 91/63 95 09/13/17 00:02 82 22 95 09/13/17 00:01 98.1 F 83 23 H 95/71 94 09/13/17 00:00 82 20 95 09/12/17 23:32 82 22 94 09/12/17 23:31 82 24 H 98/66 94 09/12/17 23:02 86 21 95 09/12/17 23:01 86 24 H 104/67 94 09/12/17 23:00 87 23 H 95 09/12/17 22:31 86 20 96/67 98 09/12/17 22:23 87 20 102/65 96 09/12/17 22:01 87 23 H 109/71 96 09/12/17 22:00 86 22 96 09/12/17 21:30 88 20 107/76 96 09/12/17 21:12 89 12 09/12/17 21:02 89 21 88 L 09/12/17 21:01 90 19 95/72 90 09/12/17 21:00 89 20 90 09/12/17 20:31 19 98/64 09/12/17 20:01 88 24 H 90/69 89 L 09/12/17 20:00 97.9 F 89 16 91 09/12/17 19:31 87 18 94/59 96 09/12/17 19:03 86 15 89 L 09/12/17 19:02 87 13 89/64 81 L 09/12/17 19:00 92 H 12 91 09/12/17 18:31 90 22 89/70 91 09/12/17 18:01 88 21 93/70 90 09/12/17 18:00 89 16 93 09/12/17 17:31 87 20 97/70 94 Intake and Output 09/13/17 09/13/1718 05:59 13:59 21:59 Intake Total 257 / 257 235 / 235 460 / 460 Output Total 100 / 100 400 / 400 300 / 300 Balance 157 / 157 -165 / -165 160 / 160 Intake: IV 257 / 257 235 / 235 100 / 100 Levophed 16 mg In Sodium 157 / 157 35 / 35 Chloride 0.9% 234 ml @ 10 MCG/ MIN 9.37 mls/hr IV Q24H [facility] Rx# :[id number] Oral 360 / 360 Output: Emesis 100 / 100 400 / 400 300 / 300 Other: Stool Size Small Stool Color Green Stool Consistency Liquid Loose # Bowel Movements 1 Weight 187 lb 6.4 oz Patient Weight 09/14/17 05:59 Weight 187 lb 6.4 oz Intake & Output: Intake & Output 09/13/17 09/13/17 09/13/17 05:59 13:59 21:59 Intake Total 257 / 257 235 / 235 460 / 460 Output Total 100 / 100 400 / 400 300 / 300 Balance 157 / 157 -165 / -165 160 / 160 Weight 187 lb 6.4 oz Intake: IV 257 / 257 235 / 235 100 / 100 Levophed 16 mg In Sodium 157 / 157 35 / 35 Chloride 0.9% 234 ml @ 10 MCG/ MIN 9.37 mls/hr IV Q24H [facility] Rx# :[id number] Oral 360 / 360 Output: Emesis 100 / 100 400 / 400 300 / 300 Other: Stool Size Small Stool Color Green Stool Consistency Liquid Loose # Bowel Movements 1 - General Appearance General appearance: appears started age, chronically ill EENT: mucous membranes moist Neck: no JVD Respiratory: rales Cardiology: no rub, edema, regular rate, regular rhythm Gastrointestinal: no tenderness, no guarding Integumentary: warm and dry Neurologic: alert and oriented x3 Musculoskeletal: no erythema (has ecchymotic patches, skin thin and easily bruised ), no cyanosis Psychiatric: mood/affect appropriate - Lab 09/13/17 03:59 09/13/17 03:59 Most recent lab results Calcium 9.3 mg/dl (8.6-10.4) 09/13/17 03:59 Phosphorus 3.0 mg/dL (2.7-4.5) 09/13/17 03:59 Magnesium 1.9 mg/dL (1.6-2.5) 09/13/17 03:59 Assessment and Plan (1) ESRD (end stage renal disease) on dialysis no urgent indication for [employer], will hold off on dialysis given patient feeling sick with nausea and vomiting Hypotension: chronic, worse given acute issues taper levophed as able continue midodrine 10 tid if fails ? need for ligation of AVF, will discuss with vascular Status: Chronic Priority: Medium (2) Peripheral edema Status: Chronic Comment: must consider diastolic dysfunction with right heart failure and pulmonary HTN CONTRIBUTING causes
--- NOTE | 2017-09-13 18:03 | General Surgery Progress Note ---
Subjective Patient reports: feels better, still having pain, flatus, bowel movement, nausea , vomiting, afebrile Narrative: Note initiated : 09/13/17 at 6:03 pm Service Date, if different from initiated Date: [] Patient: Naz Joseph 72 y/o F admitted on 09/08/17 for Hypotension/Small Bowel Obstruction. Chief Complaint: [Patient is stable but she complains of more nausea today. She has had some similar soft bowel movements. She has been reduced to clear liquids at this time. Her white blood count is normal and she is afebrile. She does not have any symptoms to suggest obstruction.] Objective Temp Pulse Resp BP Pulse Ox 98.2 F 49 L 19 86/59 96 09/13/17 16:01 09/13/17 12:01 09/13/17 17:01 09/13/17 17:01 09/13/17 16:01 - Additional Data Intake & Output - Last 24 hours: Intake & Output 09/11/17 09/12/17 09/13/17 09/14/17 05:59 05:59 05:59 05:59 Intake Total 1947 / 1947 1882 / 1882 1004 / 1004 695 / 695 Output Total 3150 / 3150 3050 / 3050 3100 / 3100 700 / 700 Balance -1203 / -1203 -1168 / -1168 -2096 / -2096 -5 / -5 Weight 190 lb 4.143 oz 184 lb 12.8 oz 187 lb 6.4 oz 187 lb 6.4 oz - General physical appearance well developed, well nourished, moderate distress, chronically ill, obese - Eyes PERRL, normal ocular movement - ENT normal pinna, normal nares, normal mucosa, no hearing loss, no congestion - Neck no masses, no bruits, trachea midline, no lymphadectomy, no venous distension - Respiratory normal expansion, normal respiratory effort, clear to percussion, clear to auscultation - Cardiovascular Cardiovascular exam: Present: normal rate and rhythm, +S1, +S2, tachycardia - Abdomen non tender (Abdominal exam remains benign; she has active bowel sounds and there is no tenderness), bowel sounds (present), surgical scars (none), masses ( none) - Integumentary other (Scattered ecchymosis and superficial abrasions are healing uneventfully) - Neurologic normal coordination, normal sensation - Musculoskeletal normal posture - Psychiatric oriented to time, oriented to person, oriented to place, speech is normal, memory intact - Labs 09/14/17 03:49 09/14/17 03:49 Diabetes panel 09/13/17 Range/Units 03:59 Sodium 139 (133-145) mmol/L Potassium 3.7 (3.3-5.1) mmol/L Chloride 98 (96-108) mmol/L Carbon Dioxide 26 (22-30) mmol/L BUN 11 (8-23) mg/dl Creatinine 3.6 H (0.6-1.1) mg/dl Glucose 128 H (70-105) mg/dL Calcium 9.3 (8.6-10.4) mg/dl AST 11 (0-37) U/l ALT 7 (0-40) U/l Alkaline Phosphatase 59 (39-117) U/L Total Protein 6.0 (5.9-8.4) gm/dL Albumin 3.1 L (3.2-5.2) gm/dL Triglycerides 84 (<150) mg/dl Calcium panel 09/13/17 Range/Units 03:59 Calcium 9.3 (8.6-10.4) mg/dl Phosphorus 3.0 (2.7-4.5) mg/dL Albumin 3.1 L (3.2-5.2) gm/dL Pituitary panel 09/13/17 Range/Units 03:59 Sodium 139 (133-145) mmol/L Potassium 3.7 (3.3-5.1) mmol/L Chloride 98 (96-108) mmol/L Carbon Dioxide 26 (22-30) mmol/L BUN 11 (8-23) mg/dl Creatinine 3.6 H (0.6-1.1) mg/dl Glucose 128 H (70-105) mg/dL Calcium 9.3 (8.6-10.4) mg/dl Adrenal panel 09/13/17 Range/Units 03:59 Sodium 139 (133-145) mmol/L Potassium 3.7 (3.3-5.1) mmol/L Chloride 98 (96-108) mmol/L Carbon Dioxide 26 (22-30) mmol/L BUN 11 (8-23) mg/dl Creatinine 3.6 H (0.6-1.1) mg/dl Glucose 128 H (70-105) mg/dL Calcium 9.3 (8.6-10.4) mg/dl Total Bilirubin 0.6 (0.0-1.0) mg/dL AST 11 (0-37) U/l ALT 7 (0-40) U/l Alkaline Phosphatase 59 (39-117) U/L Total Protein 6.0 (5.9-8.4) gm/dL Albumin 3.1 L (3.2-5.2) gm/dL Assessment and Plan (1) Chronic diarrhea Status: Acute Assessment and plan: She does not have abdominal pain. C. difficile positive; Diet advance to renal diet Current Visit: Yes (2) Nausea and vomiting Status: Acute Assessment and plan: Diet advance to solid renal diet Current Visit: Yes (3) Anasarca Status: Acute Current Visit: Yes (4) Hypotension Status: Acute Assessment and plan: Presently being supported with levo fed Current Visit: Yes (5) ESRD (end stage renal disease) on dialysis Status: Chronic Assessment and plan: Schedule for hemodialysis later this morning Current Visit: Yes (6) Ulcer of right knee Status: Acute Assessment and plan: Ulceration is unchanged and there is no evidence of acute inflammation at this time Current Visit: Yes - Time Spent With Patient Total time spent is greater than 50% in coordination of care (as documented) at patient's floor/unit and/or counseling patient:
[2017-09-13] MEDS: SENNOSIDES 1 TABLET PO SCH (21:14)
[2017-09-13] MEDS: traZODone HCL 50 MG TABLET PO SCH (21:14)
[2017-09-14] MEDS: 0.9 % SODIUM CHLORIDE 250 ML IV SCH ×3 (04:41→15:11)
[2017-09-14 05:36] LABS: Basophils # (Auto) 0 K/mcL (0.0-0.3); Basophils % (Auto) 0.2 % (0.0-2.0); Eosinophils # (Auto) 0.2 K/mcL (0.0-0.7); Eosinophils % (Auto) 2.7 % (0.0-7.0); Granulocytes % (Auto) 73.1 % (38.0-78.0); Lymphocytes # (Auto) 0.9 K/mcL (1.5-4.8); Lymphocytes % (Auto) 11.8 % (15.5-49.0); Mean Cell Volume 115.1 fL (80.0-100.0); Mean Corpuscular HGB Conc 32.8 g/dL (31.0-36.0); Mean Corpuscular Hemoglobin 37.8 pg (26.0-34.0); Monocytes # (Auto) 0.9 K/mcL (0.1-0.9); Monocytes % (Auto) 12.2 % (1.0-12.0); Platelet Count 172 K/mcL (140-440); RBC 3.38 M/mcL (4.00-5.20); Red Cell Distribution Width 21.4 % (11.5-14.5)
[2017-09-14] MEDS: metroNIDAZOLE 500 MG/100 ML BAG IV SCH ×3 (05:39→21:05)
[2017-09-14] MEDS: 0.9 % SODIUM CHLORIDE 10 ML SYRINGE IV SCH ×5 (05:40→21:06)
[2017-09-14] MEDS: INSULIN LISPRO 1 UNIT/0.01 ML UNIT SQ SCH ×3 (05:56→16:50)
[2017-09-14 06:07] LABS: ALT/SGPT 7 U/l (0-40); Alkaline Phosphatase 58 U/L (39-117); Bilirubin,Direct 0.3 mg/dL (0.0-0.3); Blood Urea Nitrogen 17 mg/dl (8-23); Gamma Glutamyl Transpeptidase 18 U/L (5-36); Uric Acid 4.7 mg/dL (2.5-8.0)
[2017-09-14] MEDS: PANTOPRAZOLE 40 MG VIAL IV SCH ×2 (07:40→16:50)
[2017-09-14] MEDS: MIDODRINE 5 MG TABLET PO SCH ×3 (07:45→18:02)
[2017-09-14] MEDS: SEVELAMER 800 MG TABLET PO SCH ×3 (08:05→16:50)
[2017-09-14] MEDS: POTASSIUM CHLORIDE 20 MEQ TABLET PO SCH ×2 (08:05→16:50)
[2017-09-14] MEDS: ACETAMINOPHEN 1,000 MG/100 ML BOTTLE IV PRN (08:15)
[2017-09-14] MEDS ORDERED: predniSONE 20 MG TABLET PO ONE (09:24)
[2017-09-14] MEDS: CYANOCOBALAMIN (VITAMIN B-12) 500 MCG TABLET PO SCH (09:40)
[2017-09-14] MEDS: FLUoxetine HCL 20 MG CAPSULE PO SCH (09:40)
[2017-09-14] MEDS: CLOPIDOGREL 75 MG TABLET PO SCH (09:40)
[2017-09-14] MEDS: HEPARIN 5,000 UNIT/ML VIAL SQ SCH ×2 (09:41→21:02)
[2017-09-14] MEDS: GENTAMICIN SULFATE 40 MG, CLINDAMYCIN 300 MG, BACITRACIN 25,000 UNIT in SODIUM CHLORIDE... IRR SCH ×2 (09:42→21:06)
[2017-09-14] MEDS: VANCOMYCIN ORAL SOL 1,000 MG/10 ML BOTTLE PO SCH ×4 (09:43→21:03)
[2017-09-14] MEDS: ARIPIPRAZOLE 2 MG PO SCH (09:43)
[2017-09-14] MEDS: BUDESONIDE 0.5 MG/2 ML AMPUL.NEB NEB SCH ×2 (09:57→19:45)
--- NOTE | 2017-09-14 11:13 | General Surgery Progress Note ---
Subjective Patient reports: feels better, pain is less, tolerating liquids well, flatus, no bowel movement, afebrile Narrative: Note initiated : 09/14/17 at 11:13 am Service Date, if different from initiated Date: [] Patient: Naz Joseph 72 y/o F admitted on 09/08/17 for Hypotension/Small Bowel Obstruction. Chief Complaint: [Patient continues to improve from a GI standpoint. Her diarrhea has essentially ceased. She denies having abdominal pain and she denies nausea now although she did have some yesterday. She remains afebrile and her white blood count is normal. She still has relative hypotension and needs pressors to complete dialysis. She has been able to complete full course of dialysis without difficulty.] Objective Temp Pulse Resp BP Pulse Ox 97.9 F 79 13 105/76 96 09/14/17 07:00 09/14/17 10:02 09/14/17 10:02 09/14/17 07:30 09/14/17 07:55 - Additional Data Intake & Output - Last 24 hours: Intake & Output 09/12/17 09/13/17 09/14/17 09/15/17 05:59 05:59 05:59 05:59 Intake Total 1882 / 1882 1004 / 1004 1246 / 1246 204 / 204 Output Total 3050 / 3050 3100 / 3100 700 / 700 Balance -1168 / -1168 -2096 / -2096 546 / 546 204 / 204 Weight 184 lb 12.8 oz 187 lb 6.4 oz 185 lb - General physical appearance well developed, well nourished, no distress, no pain - Eyes PERRL, normal ocular movement - ENT normal pinna, normal nares, normal mucosa, no hearing loss, no congestion - Neck no masses, no bruits, trachea midline, no lymphadectomy, no venous distension - Respiratory normal expansion, normal respiratory effort, clear to percussion, clear to auscultation - Cardiovascular Cardiovascular exam: Present: normal rate and rhythm, RRR, +S1, +S2. Absent: JVD - Abdomen non tender (Abdominal exam is totally benign; there is no distention and there is no tenderness; good active bowel sounds), bowel sounds (present), surgical scars (none), masses (none) - Neurologic normal coordination, normal sensation - Psychiatric oriented to time, oriented to person, oriented to place, speech is normal, memory intact - Labs 09/14/17 03:49 09/14/17 03:49 Diabetes panel 09/14/17 Range/Units 03:49 Sodium 138 (133-145) mmol/L Potassium 4.0 (3.3-5.1) mmol/L Chloride 99 (96-108) mmol/L Carbon Dioxide 24 (22-30) mmol/L BUN 17 (8-23) mg/dl Creatinine 4.2 H (0.6-1.1) mg/dl Glucose 75 (70-105) mg/dL Calcium 9.2 (8.6-10.4) mg/dl AST 10 (0-37) U/l ALT 7 (0-40) U/l Alkaline Phosphatase 58 (39-117) U/L Total Protein 6.1 (5.9-8.4) gm/dL Albumin 3.0 L (3.2-5.2) gm/dL Triglycerides 70 (<150) mg/dl Calcium panel 09/14/17 Range/Units 03:49 Calcium 9.2 (8.6-10.4) mg/dl Phosphorus 3.1 (2.7-4.5) mg/dL Albumin 3.0 L (3.2-5.2) gm/dL Pituitary panel 09/14/17 Range/Units 03:49 Sodium 138 (133-145) mmol/L Potassium 4.0 (3.3-5.1) mmol/L Chloride 99 (96-108) mmol/L Carbon Dioxide 24 (22-30) mmol/L BUN 17 (8-23) mg/dl Creatinine 4.2 H (0.6-1.1) mg/dl Glucose 75 (70-105) mg/dL Calcium 9.2 (8.6-10.4) mg/dl Adrenal panel 09/14/17 Range/Units 03:49 Sodium 138 (133-145) mmol/L Potassium 4.0 (3.3-5.1) mmol/L Chloride 99 (96-108) mmol/L Carbon Dioxide 24 (22-30) mmol/L BUN 17 (8-23) mg/dl Creatinine 4.2 H (0.6-1.1) mg/dl Glucose 75 (70-105) mg/dL Calcium 9.2 (8.6-10.4) mg/dl Total Bilirubin 0.6 (0.0-1.0) mg/dL AST 10 (0-37) U/l ALT 7 (0-40) U/l Alkaline Phosphatase 58 (39-117) U/L Total Protein 6.1 (5.9-8.4) gm/dL Albumin 3.0 L (3.2-5.2) gm/dL Assessment and Plan (1) Chronic diarrhea Status: Acute Assessment and plan: She does not have abdominal pain. C. difficile positive; Diet advance to renal diet Current Visit: Yes (2) Nausea and vomiting Status: Acute Assessment and plan: Diet advance to solid renal diet Current Visit: Yes (3) Anasarca Status: Acute Current Visit: Yes (4) Hypotension Status: Acute Assessment and plan: Presently being supported with levo fed Current Visit: Yes (5) ESRD (end stage renal disease) on dialysis Status: Chronic Assessment and plan: Schedule for hemodialysis later this morning Current Visit: Yes (6) Ulcer of right knee Status: Acute Assessment and plan: Ulceration is unchanged and there is no evidence of acute inflammation at this time Current Visit: Yes - Time Spent With Patient Total time spent is greater than 50% in coordination of care (as documented) at patient's floor/unit and/or counseling patient:
--- NOTE | 2017-09-14 12:23 | Nephrology Progress Note ---
Subjective Patient information: Note initiated : 09/14/17 at 12:21 pm Service Date, if different from initiated Date: [] Patient: Naz Joseph 72 y/o F admitted on 09/08/17 for Hypotension/Small Bowel Obstruction. Chief Complaint: [] Principal diagnosis: End stage renal disease on chronic hemodialysis Interval history: No overnight events nausea better but still not taking much oral intake levopehd titrated up overnight to achieve BP goals No diarrhea at present, this has resolved denies abdominal pain this am no SOB, CP knee wound improving slowly Pertinent ROS: as above Objective - Vital Signs Vital signs: Vital Signs Temp Pulse Resp BP Pulse Ox 09/14/17 12:15 80 107/78 09/14/17 12:00 81 92/69 09/14/17 11:45 81 116/55 09/14/17 11:30 80 93/65 09/14/17 11:12 96.9 F L 80 96/67 09/14/17 10:02 79 13 09/14/17 07:55 96 09/14/17 07:30 84 23 H 105/76 95 09/14/17 07:01 84 18 97 09/14/17 07:00 97.9 F 81 19 98/81 92 09/14/17 06:31 85 18 96 09/14/17 06:30 81 21 106/76 94 09/14/17 06:01 85 18 101/72 96 09/14/17 06:00 83 15 96 09/14/17 05:32 86 16 97 09/14/17 05:31 22 104/74 90 09/14/17 05:01 15 109/75 95 09/14/17 04:30 15 105/73 96 09/14/17 04:00 97.8 F 16 94/74 94 09/14/17 03:31 20 103/70 91 09/14/17 03:01 14 107/73 93 09/14/17 02:31 16 103/76 95 09/14/17 02:01 17 102/75 96 09/14/17 01:31 21 96/76 91 09/14/17 01:00 19 100/73 90 09/14/17 00:30 15 101/66 93 09/14/17 00:15 87 21 95/71 87 L 09/14/17 00:01 89 22 90 03/30/18 00:00 16 89/63 94 18 23:30 20 76/59 93 09/13/17 23:00 20 83/57 94 18 22:31 26 H 83/58 92 18 22:00 22 82/63 94 18 21:32 21 93 09/13/17 21:31 82 27 H 96/59 95 09/13/17 21:16 82 25 H 93/67 93 09/13/17 21:01 83 26 H 95/67 96 09/13/17 21:00 24 H 94 09/13/17 20:41 86 16 09/13/17 20:31 21 92/66 95 09/13/17 20:01 24 H 100/75 97 09/13/17 19:32 97.0 F 23 H 101/60 98 09/13/17 19:01 25 H 104/71 09/13/17 18:31 22 96/72 09/13/17 18:16 22 94/66 09/13/17 18:01 25 H 101/78 09/13/17 17:45 22 106/73 09/13/17 17:31 21 93/63 09/13/17 17:17 24 H 94/69 09/13/17 17:01 19 86/59 09/13/17 16:48 25 H 91/60 18 16:31 22 124/97 09/13/17 16:16 19 100/63 09/13/17 16:01 98.2 F 13 102/69 96 09/13/17 15:46 19 93/66 09/13/17 15:31 18 92/71 18 15:16 21 97/67 09/13/17 15:01 17 99/66 18 14:46 18 89/66 18 14:31 18 95/67 09/13/17 14:16 18 106/71 09/13/17 14:01 17 98/71 18 13:46 17 96/66 09/13/17 13:30 21 101/76 18 13:16 19 97/66 18 13:00 18 95/67 09/13/17 12:45 20 101/75 18 12:31 17 92/71 Intake and Output 09/13/17 09/14/17 09/14/17 21:59 05:59 13:59 Intake Total 460 / 460 551 / 551 204 / 204 Output Total 300 / 300 Balance 160 / 160 551 / 551 204 / 204 Intake: IV 100 / 100 401 / 401 204 / 204 Sodium Chloride 0.9% 250 ml @ 250 / 250 20 mls/hr IV .[id number] BLAZE Rx#: [id number] Levophed 16 mg In Sodium 51 / 51 104 / 104 Chloride 0.9% 234 ml @ 10 MCG/ MIN 9.37 mls/hr IV Q24H BLAZE Rx# :[id number] Oral 360 / 360 150 / 150 Output: Emesis 300 / 300 Other: Weight 185 lb Intake & Output: Intake & Output 09/13/17 09/14/17 09/14/17 21:59 05:59 13:59 Intake Total 460 / 460 551 / 551 204 / 204 Output Total 300 / 300 Balance 160 / 160 551 / 551 204 / 204 Weight 185 lb Intake: IV 100 / 100 401 / 401 204 / 204 Sodium Chloride 0.9% 250 ml @ 250 / 250 20 mls/hr IV .[id number] BLAZE Rx#: [id number] Levophed 16 mg In Sodium 51 / 51 104 / 104 Chloride 0.9% 234 ml @ 10 MCG/ MIN 9.37 mls/hr IV Q24H BLAZE Rx# :[id number] Oral 360 / 360 150 / 150 Output: Emesis 300 / 300 - General Appearance General appearance: appears started age, chronically ill, frail EENT: mucous membranes moist Neck: JVD Respiratory: rales Cardiology: no rub, normal S1, normal S2 Gastrointestinal: no tenderness, no guarding Integumentary: warm and dry, ecchymotic Neurologic: alert and oriented x3 Musculoskeletal: no erythema, no cyanosis Psychiatric: mood/affect appropriate - Lab 09/14/17 03:49 09/14/17 03:49 Most recent lab results Calcium 9.2 mg/dl (8.6-10.4) 09/14/17 03:49 Phosphorus 3.1 mg/dL (2.7-4.5) 09/14/17 03:49 Magnesium 1.8 mg/dL (1.6-2.5) 09/14/17 03:49 Assessment and Plan (1) ESRD (end stage renal disease) on dialysis HD today for 4 hrs using revaclear dialyser, 3K/2.5ca dialysate and UF goal of 2 -3L as tolerated given elevated CVP and edema Hypotension: chronic, worse given acute issues taper levophed as able to keep MAP of more than 65 consider femoral arterial line to see if this her true systolic pressure will add prednisone 40mg po daily with slow taper to 10mg given good response i n the past with improved hemodynamics to steroids, this is despite normal cortisol, acth level in the past but we are running out of options at this time patient is getting progressively hypotensive with inability to dialyse her as outpatient continue midodrine 10 tid if fails ? need for ligation of AVF, will discuss with vascular low albumin: patient encouraged to try and eat if surgery ok with this Knee abscess: improving slowly with local wound care, followed by wound care team C diff: on antibiotics, diarrhea has resolved fornow Will follow along Appreciate hospitalist help in managing this patient Status: Chronic Priority: Medium (2) Peripheral edema Status: Chronic Comment: must consider diastolic dysfunction with right heart failure and pulmonary HTN CONTRIBUTING causes
[2017-09-14] MEDS: NOREPINEPHRINE BITARTRATE 16 MG in 0.9 % SODIUM CHLORIDE 234 ML IV SCH (13:55)
--- NOTE | 2017-09-14 14:26 | Internal Med Progress Note ---
Medical - PN: Subj Patient information: Note initiated : 09/14/17 at 2:04 pm Service Date, if different from initiated Date: [] Patient: Naz Joseph a 72 y/o F admitted on 09/08/17 for Hypotension/Small Bowel Obstruction. Interval history: Ms. Joseph is a 72 year old Female with h/o end-stage renal disease on dialysis follows with Dr. REAGAN, the patient presents to the emergency room after being sent from dialysis to the ER for low blood pressure. According to the patient she has not been well for the last 2 weeks. She has been weak, she fell down reports this as a mechanical fall and injured the right side of the knee. She developed a wound for which she has been followed by the wound care clinic. According to the patient history the swab taken from that wound was growing MRSA, patient is on Bactrim and Keflex for same. The patient has been having ongoing diarrhea for approximately last 1 week liquid watery dark green 4-5 episodes every day, she has been getting weaker and more fatigued. She has had decreased appetite and has not been eating or drinking very well. She also admits to be having some nausea. The patient reports that she is not able to ambulate well and finds it difficult to even get up and move around. She presented for dialysis at which point in time she was noted to have low blood pressures with systolic in 70s, he was therefore sent to the emergency room for further evaluation. The patient also notes that she has subjective sensations of chills and intermittent shakes which have been progressively getting worse over the last weeks. Has any documented fever, has chronic headaches worse now, no dizziness , no changes in vision, has dry mouth no difficulty in swallowing no changes in hearing, no neck swelling or lymphadenopathy no bleeding. She has shortness of breath on exertion which is far worse than her baseline. She denies any chest pain, has nausea no abdominal pain she had diarrhea over the last 1 week. The patient denies any acute joint swelling or joint pain besides the right knee. In the emergency room the patient was afebrile, heart rate 67 blood pressure 78/ 61, saturating 98% on room air, White blood cell count was 8.8 hemoglobin 12.9 platelets 155, sodium 138, potassium 2.9, bicarbonate 29 creatinine 4.6 glucose level was 81. The patient's x-ray of the abdomen showed possible small bowel obstruction, CT scan of the abdomen was done with contrast after consultation with nephrology and was tentatively reported as small bowel obstruction. Dr. Ricketts the general surgeon was consulted from the emergency room. He would be seeing the patient. The patient's right knee had an ulcer with erythema extending on the anterior aspect of the knee, on my exam there was fluctuation likely infected bursitis Given low blood pressure, which remained low despite 2 L of fluid resuscitation possible abscess, small bowel obstruction the patient has been admitted to the ICU for further management. September 09 Patient seen examined, feeling better, on Levophed, patient has no acute complaints, appreciate help from surgery as well as nephrology. X-ray abdomen repeated today. Patient is scheduled for dialysis today. Central line placed yesterday, CVP is elevated at 15-18. Echo ordered. Cdif positive. September 10 On Vanco po for C dif. Liquid diarrhea. Rectal tube in. Still profuse diarrhea. Will add Metronidazole IV Examined knee R with dr Pedraza. Don't think it's infected, or requires systemic antibiotics. Case d/w nephrology (dr Bynum): HD for fluid overload today. Still on Levophed gtt. September 11 HD today. CVP was 20. Was drinking lots of fluid. Now on fluid restriction. Levophed at 10. Still significant stool output, but more formed. Considering placement of femoral a-line, but should wait till C.dif resolved. Will increase Florinef from 0.05 q 48 hr to 0.1 daily September 12 Less stool out put. Tolerating full liquid diet. CVP 15. Levophed 8-10 mcg. HD 2-3 L off. Discussed the many problems with patient. Limited treatment options available if hypotension persists. September 13 Abdominal pain and severe nausea this am. KUB: no evidence of obstruction On Levo 5 mcg/min September 14 Still requiring Levophed 5 - 10 mcg/min to keep MAP 65 Diarrhea resolved. Still on Vanco po and Flagyl IV for C dif colitis. Plan today: arterial fem cath placement - Constitutional Vitals: Vital Signs Temp Pulse Resp BP Pulse Ox 96.9 F L 82 22 100/73 99 09/14/17 11:12 09/14/17 13:46 09/14/17 13:46 09/14/17 13:46 09/14/17 13:46 Period Temp Pulse Resp BP Sys/Millan Pulse Ox Last 24 Hr 96.9 F-98.2 F 77-89 13-27 75-124/55-97 87-100 Intake and Output 09/14/17 09/14/17 09/14/17 05:59 13:59 21:59 Intake Total 551 / 551 231 / 231 Balance 551 / 551 231 / 231 Intake & Output: Intake & Output 09/14/17 09/14/17 09/14/17 05:59 13:59 21:59 Intake Total 551 / 551 231 / 231 Balance 551 / 551 231 / 231 Intake: IV 401 / 401 231 / 231 Sodium Chloride 0.9% 250 ml @ 250 / 250 20 mls/hr IV .[id number] BLAZE Rx#: [id number] Levophed 16 mg In Sodium 51 / 51 131 / 131 Chloride 0.9% 234 ml @ 10 MCG/ MIN 9.37 mls/hr IV Q24H BLAZE Rx# :[id number] Oral 150 / 150 General appearance: no acute distress - Respiratory Respiratory exam: Present: normal respiratory exam - Cardiovascular Cardiovascular exam: Present: normal rate and rhythm - GI/Abdominal GI/Abdominal exam: Present: normal bowel sounds, soft Medical - PN: Obj Da - Labs CBC & Chem 7: 09/14/17 03:49 09/14/17 03:49 Labs: Abnormal Lab Results 09/14/17 09/14/17 09/13/17 03:49 03:49 03:59 RBC 3.38 L MCV 115.1 H MCH 37.8 H RDW 21.4 H MPV Lymph % (Auto) 11.8 L Hooker % (Auto) 12.2 H Lymph # (Auto) 0.9 L Hooker # (Auto) Potassium Creatinine 4.2 H 3.6 H Glucose 128 H Total Protein Albumin 3.0 L 3.1 L 09/13/17 09/12/17 09/12/17 03:59 03:45 03:45 RBC 3.38 L 3.27 L MCV 115.6 H 115.3 H MCH 37.9 H 38.0 H RDW 22.2 H 20.6 H MPV 10.6 H Lymph % (Auto) 9.4 L 12.8 L Hooker % (Auto) Lymph # (Auto) 0.9 L 1.2 L Hooker # (Auto) 1.0 H Potassium 3.0 L Creatinine 3.3 H Glucose 120 H Total Protein 5.6 L Albumin 3.0 L Meds: Medications Acetaminophen (Tylenol) 650 mg PO Q4-6HP PRN PRN Reason: PAIN/FEVER > 101 Last Admin: 09/11/17 12:11 Dose: 650 mg Budesonide (Pulmicort) 0.5 mg NEB Q12 [facility] Last Admin: 09/14/17 09:57 Dose: 0.5 mg Clopidogrel Bisulfate (Plavix) 75 mg PO DAILY [facility] Last Admin: 09/14/17 09:40 Dose: 75 mg Cyanocobalamin (Vitamin B-12) 1,000 mcg PO DAILY [facility] Last Admin: 09/14/17 09:40 Dose: 1,000 mcg Dextrose (Dextrose 50%) 0 ml IV UD PRN PRN Reason: Hypoglycemia Last Admin: 09/09/17 01:10 Dose: 25 ml Diagnostic Test (Pha) (Accu-Chek) 1 each FS Q6 [facility] Last Admin: 09/14/17 13:50 Dose: 1 each Fluoxetine HCl (Prozac) 40 mg PO DAILY [facility] Last Admin: 09/14/17 09:40 Dose: 40 mg Heparin Sodium (Porcine) (Heparin) 5,000 unit SQ Q12 [facility] Last Admin: 09/14/17 09:41 Dose: 5,000 unit Hydromorphone HCl (Dilaudid) 2 mg PO Q8HP PRN PRN Reason: Pain Last Admin: 09/13/17 17:53 Dose: 2 mg Norepinephrine Bitartrate 16 (mg/ Sodium Chloride) 250 mls @ 9.37 mls/hr IV Q24H [facility]; 10 MCG/MIN PRN Reason: Protocol Last Admin: 09/14/17 13:55 Dose: 9 mcg/min, 8.43 mls/hr Gentamicin Sulfate 40 mg/Clindamycin Phosphate 300 mg/Bacitracin 25,000 unit/ Sodium Chloride 503 mls @ 0 mls/hr IRR BID BLAZE PRN Reason: As Directed Last Admin: 09/14/17 09:42 Dose: 1 mls/hr Metronidazole (Flagyl) 500 mg in 100 mls @ 100 mls/hr IV Q8H [facility] Last Infusion: 09/14/17 08:07 Dose: Infused Acetaminophen (Ofirmev) 1,000 mg in 100 mls @ 200 mls/hr IV Q6HP PRN PRN Reason: PAIN/FEVER > 101 Last Infusion: 09/13/17 09:35 Dose: Infused Sodium Chloride (Sodium Chloride 0.9%) 250 mls @ 20 mls/hr IV .[id number] [facility] Last Admin: 09/14/17 08:58 Dose: 10 mls/hr Insulin Human Lispro (Humalog) 0 unit SQ Q6 [facility]LAZE PRN Reason: Protocol Last Admin: 09/14/17 13:50 Dose: Not Given Lorazepam (Ativan) 0.5 mg IV Q4HP PRN PRN Reason: Anxiety Last Admin: 09/09/17 21:19 Dose: 0.5 mg Midodrine (Midodrine Hcl) 10 mg PO TID@0800,1200,1700 [facility] Last Admin: 09/14/17 07:45 Dose: 10 mg Aripiprazole [ Aripiprazole] 2 Mg Tablet 2 mg PO QDAY [facility] Last Admin: 09/14/17 09:43 Dose: 2 mg Ondansetron HCl (Zofran) 4 mg IV Q4-6HP PRN PRN Reason: Nausea And Vomiting Last Admin: 09/13/17 17:53 Dose: 4 mg Pantoprazole Sodium (Protonix) 40 mg IV BIDAC [facility] Last Admin: 09/14/17 07:40 Dose: 40 mg Potassium Chloride (Kdur) 20 meq PO BIDCC [facility] Last Admin: 09/14/17 08:05 Dose: Not Given [facility]) [facility] Promethazine HCl (Phenergan) 12.5 mg IV Q6-8HP PRN PRN Reason: Nausea And Vomiting Last Admin: 09/13/17 16:26 Dose: 12.5 mg Senna (Senokot) 1 tab PO HS [facility] Last Admin: 09/13/17 21:14 Dose: Not Given Sevelamer Carbonate (Renvela) 800 mg PO TIDAC [facility] Last Admin: 09/14/17 09:40 Dose: 800 mg Sodium Chloride (Saline Flush) 10 ml IV Q8 [facility] Last Admin: 09/14/17 05:40 Dose: 10 ml Sodium Chloride (Saline Flush) 10 ml IV Q12 [facility] Last Admin: 09/14/17 09:44 Dose: 10 ml Trazodone HCl (Desyrel) 250 mg PO HS [facility] Last Admin: 09/13/17 21:14 Dose: 250 mg Vancomycin HCl (Vancomycin Oral Lizy) 125 mg PO QID [facility] Last Admin: 09/14/17 13:56 Dose: 125 mg Medical - PN: A/P - Time Spent With Patient Total time spent is greater than 50% in coordination of care (as documented) at patient's floor/unit and/or counseling patient: 15 - 24 minutes - Narrative A/P Narrative: + Hypotension : despite 2 L fluids, likely from dehydration and infection, treat underlying infection, IV fluids, central line placed. Usually takes midodrine at home, but this time despite 2 doses, bp remained low. No evidence of sepsis, but has C.dif colitis. On Vanco po and Flagyl IV since . No blood cultures were obtained on admissions. On Midodrine and Florinef. Dose Florinef increased 09/11 to 0.1 mg daily 09/14 femoral artery cath placement planned + Small bowel obstruction? More likely C.dif colitis. Appreciate dr Ricketts's help. No obstruction. Symptoms resolving + Diarrhea: positive for C dif toxin. Vanco po started 09/09 and added Flagyl IV 09/10 + Right knee bursitis/ Open wound: Possibly infected bursits vs hematoma vs reactionary swelling , get X Ray of the knee is reported negative. Wound inspection done with dr Pedraza 09/10. No indication for systemic antibiotics. Vanco IV discontinued. Local antibiotics. + Wound, Knee/ elbow. MRSA pos. Most likely colonization vs infection. + Hypokalemia: due to poor oral intake, monitor for now, Pt is ESRD on HD, will replace after central line placed. K better today + ESRD on HD, followed by Dr Reagan. + COPD: No wheezing on exam to continue bronchodilators, neg cxr for pna + Fibromyalgia/ Chr pain: On usual meds + CAD no chest pain, on plavix, continue same DVT hep sq DNR code status.
[2017-09-14] MEDS: HYDROmorphone 2 MG TABLET PO PRN ×2 (15:10→21:07)
[2017-09-14] MEDS ORDERED: HEPARIN/NS 500 ML IV ONE (15:20)
--- NOTE | 2017-09-14 18:06 | Procedure Note ---
Procedures - Arterial Line Consent obtained: written consent Time out performed: Yes Size (Gauge): 20 Technique used: guide wire technique Post-Procedure: line sutured into place, dry sterile dressing placed, easily flushed, waveform correlation Patient tolerated procedure: well, no complications Complications: none Site: left, femoral Additional comments: urgent consult for femoral a line for pt on pressors and unreliable sphygmomanometry due to AVF BUE. low BP and calcified art made procedure technically challenging but able to cannulate and advance catheter. secured, sterile. tyler well with discomfort.
[2017-09-14] MEDS: SENNOSIDES 1 TABLET PO SCH (21:03)
[2017-09-14] MEDS: traZODone HCL 50 MG TABLET PO SCH (21:05)
[2017-09-15] MEDS: INSULIN LISPRO 1 UNIT/0.01 ML UNIT SQ SCH ×5 (00:36→23:49)
[2017-09-15] MEDS: HYDROmorphone 2 MG TABLET PO PRN (05:38)
[2017-09-15] MEDS: metroNIDAZOLE 500 MG/100 ML BAG IV SCH ×3 (05:38→22:09)
[2017-09-15] MEDS: 0.9 % SODIUM CHLORIDE 250 ML IV SCH ×3 (05:38→15:45)
[2017-09-15] MEDS: 0.9 % SODIUM CHLORIDE 10 ML SYRINGE IV SCH ×6 (05:39→22:10)
[2017-09-15 06:14] LABS: ALT/SGPT 7 U/l (0-40); Albumin 3.1 gm/dL (3.2-5.2); Albumin/Globulin Ratio 1.1 (1.0-2.3); Alkaline Phosphatase 59 U/L (39-117); Bilirubin,Direct 0.3 mg/dL (0.0-0.3); Blood Urea Nitrogen 15 mg/dl (8-23); Gamma Glutamyl Transpeptidase 17 U/L (5-36); Uric Acid 3.4 mg/dL (2.5-8.0)
[2017-09-15 06:39] LABS: Basophils # (Auto) 0 K/mcL (0.0-0.3); Basophils % (Auto) 0.1 % (0.0-2.0); Eosinophils # (Auto) 0.3 K/mcL (0.0-0.7); Eosinophils % (Auto) 2.6 % (0.0-7.0); Granulocytes % (Auto) 77.5 % (38.0-78.0); Lymphocytes # (Auto) 1.1 K/mcL (1.5-4.8); Lymphocytes % (Auto) 8.8 % (15.5-49.0); Mean Corpuscular HGB Conc 33.1 g/dL (31.0-36.0); Monocytes # (Auto) 1.3 K/mcL (0.1-0.9); Platelet Count 171 K/mcL (140-440); RBC 3.25 M/mcL (4.00-5.20); Red Cell Distribution Width 20.8 % (11.5-14.5)
[2017-09-15] MEDS: CYANOCOBALAMIN (VITAMIN B-12) 500 MCG TABLET PO SCH (08:51)
[2017-09-15] MEDS: HEPARIN 5,000 UNIT/ML VIAL SQ SCH ×2 (08:51→20:29)
[2017-09-15] MEDS: MIDODRINE 5 MG TABLET PO SCH ×3 (08:52→17:33)
[2017-09-15] MEDS: CLOPIDOGREL 75 MG TABLET PO SCH (08:52)
[2017-09-15] MEDS: FLUoxetine HCL 20 MG CAPSULE PO SCH (08:52)
[2017-09-15] MEDS: SEVELAMER 800 MG TABLET PO SCH ×3 (08:52→17:32)
[2017-09-15] MEDS: PANTOPRAZOLE 40 MG VIAL IV SCH ×2 (08:52→17:33)
[2017-09-15] MEDS: POTASSIUM CHLORIDE 20 MEQ TABLET PO SCH ×2 (08:52→17:32)
[2017-09-15] MEDS: predniSONE 20 MG TABLET PO SCH (08:52)
[2017-09-15] MEDS: ARIPIPRAZOLE 2 MG PO SCH (08:53)
[2017-09-15] MEDS: VANCOMYCIN ORAL SOL 1,000 MG/10 ML BOTTLE PO SCH ×4 (08:53→20:32)
[2017-09-15] MEDS: GENTAMICIN SULFATE 40 MG, CLINDAMYCIN 300 MG, BACITRACIN 25,000 UNIT in SODIUM CHLORIDE... IRR SCH ×2 (08:54→21:49)
[2017-09-15] MEDS: BUDESONIDE 0.5 MG/2 ML AMPUL.NEB NEB SCH ×2 (10:58→20:41)
--- NOTE | 2017-09-15 11:56 | Internal Med Progress Note ---
Medical - PN: Subj Patient information: Note initiated : 09/15/17 at 11:52 am Service Date, if different from initiated Date: [] Patient: Naz Joseph 72 y/o F admitted on 09/08/17 for Hypotension/Small Bowel Obstruction. Interval history: Ms. Joseph is a 72 year old Female with h/o end-stage renal disease on dialysis follows with Dr. REAGAN, the patient presents to the emergency room after being sent from dialysis to the ER for low blood pressure. According to the patient she has not been well for the last 2 weeks. She has been weak, she fell down reports this as a mechanical fall and injured the right side of the knee. She developed a wound for which she has been followed by the wound care clinic. According to the patient history the swab taken from that wound was growing MRSA, patient is on Bactrim and Keflex for same. The patient has been having ongoing diarrhea for approximately last 1 week liquid watery dark green 4-5 episodes every day, she has been getting weaker and more fatigued. She has had decreased appetite and has not been eating or drinking very well. She also admits to be having some nausea. The patient reports that she is not able to ambulate well and finds it difficult to even get up and move around. She presented for dialysis at which point in time she was noted to have low blood pressures with systolic in 70s, he was therefore sent to the emergency room for further evaluation. The patient also notes that she has subjective sensations of chills and intermittent shakes which have been progressively getting worse over the last weeks. Has any documented fever, has chronic headaches worse now, no dizziness , no changes in vision, has dry mouth no difficulty in swallowing no changes in hearing, no neck swelling or lymphadenopathy no bleeding. She has shortness of breath on exertion which is far worse than her baseline. She denies any chest pain, has nausea no abdominal pain she had diarrhea over the last 1 week. The patient denies any acute joint swelling or joint pain besides the right knee. In the emergency room the patient was afebrile, heart rate 67 blood pressure 78/ 61, saturating 98% on room air, White blood cell count was 8.8 hemoglobin 12.9 platelets 155, sodium 138, potassium 2.9, bicarbonate 29 creatinine 4.6 glucose level was 81. The patient's x-ray of the abdomen showed possible small bowel obstruction, CT scan of the abdomen was done with contrast after consultation with nephrology and was tentatively reported as small bowel obstruction. Dr. Ricketts the general surgeon was consulted from the emergency room. He would be seeing the patient. The patient's right knee had an ulcer with erythema extending on the anterior aspect of the knee, on my exam there was fluctuation likely infected bursitis Given low blood pressure, which remained low despite 2 L of fluid resuscitation possible abscess, small bowel obstruction the patient has been admitted to the ICU for further management. September 09 Patient seen examined, feeling better, on Levophed, patient has no acute complaints, appreciate help from surgery as well as nephrology. X-ray abdomen repeated today. Patient is scheduled for dialysis today. Central line placed yesterday, CVP is elevated at 15-18. Echo ordered. Cdif positive. September 10 On Vanco po for C dif. Liquid diarrhea. Rectal tube in. Still profuse diarrhea. Will add Metronidazole IV Examined knee R with dr Pedraza. Don't think it's infected, or requires systemic antibiotics. Case d/w nephrology (dr Bynum): HD for fluid overload today. Still on Levophed gtt. September 11 HD today. CVP was 20. Was drinking lots of fluid. Now on fluid restriction. Levophed at 10. Still significant stool output, but more formed. Considering placement of femoral a-line, but should wait till C.dif resolved. Will increase Florinef from 0.05 q 48 hr to 0.1 daily September 12 Less stool out put. Tolerating full liquid diet. CVP 15. Levophed 8-10 mcg. HD 2-3 L off. Discussed the many problems with patient. Limited treatment options available if hypotension persists. September 13 Abdominal pain and severe nausea this am. KUB: no evidence of obstruction On Levo 5 mcg/min September 14 Still requiring Levophed 5 - 10 mcg/min to keep MAP 65 Diarrhea resolved. Still on Vanco po and Flagyl IV for C dif colitis. Plan today: arterial fem cath placement September 15 A-line reading about 10 mm Hg higher than cuff Diarrhea resolved Feeling better - Constitutional Vitals: Vital Signs Temp Pulse Resp BP Pulse Ox 97.7 F 81 28 H 94/70 97 09/15/17 04:01 09/15/17 11:08 09/15/17 11:08 09/15/17 11:01 09/15/17 11:01 Period Temp Pulse Resp BP Sys/Millan Pulse Ox Last 24 Hr 97.1 F-97.7 F 64-159 12-35 67-119/50-107 71-100 Intake and Output 09/14/17 09/15/17 09/15/17 21:59 05:59 13:59 Intake Total 362 / 362 527 / 527 371 / 371 Output Total 2700 / 2700 Balance -2338 / -2338 527 / 527 371 / 371 Weight 186 lb 1.122 oz Intake & Output: Intake & Output 09/14/17 09/15/17 09/15/17 21:59 05:59 13:59 Intake Total 362 / 362 527 / 527 371 / 371 Output Total 2700 / 2700 Balance -2338 / -2338 527 / 527 371 / 371 Weight 186 lb 1.122 oz Intake: IV 122 / 122 167 / 167 371 / 371 Sodium Chloride 0.9% 250 ml @ 250 / 250 20 mls/hr IV .[id number] [facility] Rx#: [id number] Levophed 16 mg In Sodium 22 / 22 67 / 67 21 / 21 Chloride 0.9% 234 ml @ 10 MCG/ MIN 9.37 mls/hr IV Q24H [facility] Rx# :[id number] Oral 240 / 240 360 / 360 Output: Hemodialysis UF 2700 / 2700 Other: Meal Dinner Percent of Meal Consumed 75% # of times incontinent of 1 Bowels General appearance: no acute distress - Head Head exam: Present: normal inspection - Respiratory Respiratory exam: Present: decreased breath sounds - GI/Abdominal GI/Abdominal exam: Present: normal bowel sounds, soft - Extremities Exam Extremities exam: Present: pedal edema (sacral and upper thigh edema) Medical - PN: Obj Da - Labs CBC & Chem 7: 09/15/17 04:38 09/15/17 04:38 Labs: Abnormal Lab Results 09/15/17 09/15/17 09/14/17 04:38 04:38 03:49 WBC 12.0 H RBC 3.25 L MCV 115.0 H MCH 38.0 H RDW 20.8 H MPV 10.5 H Lymph % (Auto) 8.8 L Motley % (Auto) Gran # 9.3 H Lymph # (Auto) 1.1 L Motley # (Auto) 1.3 H Creatinine 3.2 H 4.2 H Glucose Albumin 3.1 L 3.0 L 09/14/17 09/13/17 09/13/17 03:49 03:59 03:59 WBC RBC 3.38 L 3.38 L MCV 115.1 H 115.6 H MCH 37.8 H 37.9 H RDW 21.4 H 22.2 H MPV Lymph % (Auto) 11.8 L 9.4 L Motley % (Auto) 12.2 H Gran # Lymph # (Auto) 0.9 L 0.9 L Motley # (Auto) Creatinine 3.6 H Glucose 128 H Albumin 3.1 L Meds: Medications Acetaminophen (Tylenol) 650 mg PO Q4-6HP PRN PRN Reason: PAIN/FEVER > 101 Last Admin: 09/11/17 12:11 Dose: 650 mg Budesonide (Pulmicort) 0.5 mg NEB Q12 [facility] Last Admin: 09/15/17 10:58 Dose: 0.5 mg Clopidogrel Bisulfate (Plavix) 75 mg PO DAILY [facility] Last Admin: 09/15/17 08:52 Dose: 75 mg Cyanocobalamin (Vitamin B-12) 1,000 mcg PO DAILY [facility] Last Admin: 09/15/17 08:51 Dose: 1,000 mcg Dextrose (Dextrose 50%) 0 ml IV UD PRN PRN Reason: Hypoglycemia Last Admin: 09/09/17 01:10 Dose: 25 ml Diagnostic Test (Pha) (Accu-Chek) 1 each FS Q6 [facility] Last Admin: 09/15/17 05:57 Dose: 1 each Fluoxetine HCl (Prozac) 40 mg PO DAILY [facility] Last Admin: 09/15/17 08:52 Dose: 40 mg Heparin Sodium (Porcine) (Heparin) 5,000 unit SQ Q12 [facility] Last Admin: 09/15/17 08:51 Dose: 5,000 unit Hydromorphone HCl (Dilaudid) 2 mg PO Q8HP PRN PRN Reason: Pain Last Admin: 09/15/17 05:38 Dose: 2 mg Norepinephrine Bitartrate 16 (mg/ Sodium Chloride) 250 mls @ 9.37 mls/hr IV Q24H [facility]; 10 MCG/MIN PRN Reason: Protocol Last Titration: 09/15/17 11:04 Dose: 4 mcg/min, 3.75 mls/hr Gentamicin Sulfate 40 mg/Clindamycin Phosphate 300 mg/Bacitracin 25,000 unit/ Sodium Chloride 503 mls @ 0 mls/hr IRR BID [facility] PRN Reason: As Directed Last Admin: 09/15/17 08:54 Dose: 1 mls/hr Metronidazole (Flagyl) 500 mg in 100 mls @ 100 mls/hr IV Q8H [facility] Last Infusion: 09/15/17 11:04 Dose: Infused Acetaminophen (Ofirmev) 1,000 mg in 100 mls @ 200 mls/hr IV Q6HP PRN PRN Reason: PAIN/FEVER > 101 Last Infusion: 09/14/17 10:05 Dose: Infused Sodium Chloride (Sodium Chloride 0.9%) 250 mls @ 20 mls/hr IV .[id number] [facility] Last Admin: 09/15/17 10:28 Dose: 10 mls/hr Insulin Human Lispro (Humalog) 0 unit SQ Q6 [facility] PRN Reason: Protocol Last Admin: 09/15/17 06:00 Dose: Not Given Lorazepam (Ativan) 0.5 mg IV Q4HP PRN PRN Reason: Anxiety Last Admin: 09/09/17 21:19 Dose: 0.5 mg Midodrine (Midodrine Hcl) 15 mg PO TID@0800,1200,1700 [facility] Aripiprazole [ Aripiprazole] 2 Mg Tablet 2 mg PO QDAY [facility] Last Admin: 09/15/17 08:53 Dose: 2 mg Ondansetron HCl (Zofran) 4 mg IV Q4-6HP PRN PRN Reason: Nausea And Vomiting Last Admin: 09/13/17 17:53 Dose: 4 mg Pantoprazole Sodium (Protonix) 40 mg IV BIDAC [facility] Last Admin: 09/15/17 08:52 Dose: 40 mg Potassium Chloride (Kdur) 20 meq PO BIDCC [facility] Last Admin: 09/15/17 08:52 Dose: 20 meq Prednisone (Prednisone) 40 mg PO QAMCC [facility] Last Admin: 09/15/17 08:52 Dose: 40 mg Promethazine HCl (Phenergan) 12.5 mg IV Q6-8HP PRN PRN Reason: Nausea And Vomiting Last Admin: 09/13/17 16:26 Dose: 12.5 mg Senna (Senokot) 1 tab PO HS [facility] Last Admin: 09/14/17 21:03 Dose: Not Given Sevelamer Carbonate (Renvela) 800 mg PO TIDAC [facility] Last Admin: 09/15/17 08:52 Dose: 800 mg Sodium Chloride (Saline Flush) 10 ml IV Q8 [facility] Last Admin: 09/15/17 08:53 Dose: 10 ml Sodium Chloride (Saline Flush) 10 ml IV Q12 [facility] Last Admin: 09/15/17 08:53 Dose: 10 ml Trazodone HCl (Desyrel) 250 mg PO HS [facility] Last Admin: 09/14/17 21:05 Dose: 250 mg Vancomycin HCl (Vancomycin Oral Lizy) 125 mg PO QID [facility] Last Admin: 09/15/17 08:53 Dose: 125 mg Medical - PN: A/P - Time Spent With Patient Total time spent is greater than 50% in coordination of care (as documented) at patient's floor/unit and/or counseling patient: 15 - 24 minutes - Narrative A/P Narrative: + Hypotension : despite 2 L fluids, likely from dehydration and infection, treat underlying infection, IV fluids, central line placed. Usually takes midodrine at home, but this time despite 2 doses, bp remained low. No evidence of sepsis, but has C.dif colitis. On Vanco po and Flagyl IV since . No blood cultures were obtained on admissions. On Midodrine and Florinef. Dose Florinef increased 09/11 to 0.1 mg daily 09/14 femoral artery cath placement: SBP about 10 mg higher than cuff IV steroids x 1 given 09/14 empirically. Pt feeling better + Small bowel obstruction? More likely C.dif colitis. Appreciate dr Ricketts's help. No obstruction. Symptoms resolving + Diarrhea: positive for C dif toxin. Vanco po started 09/09 and added Flagyl IV 09/10. Diarrhea resolved 09/14 + Right knee bursitis/ Open wound: Possibly infected bursits vs hematoma vs reactionary swelling , get X Ray of the knee is reported negative. Wound inspection done with dr Pedraza 09/10. No indication for systemic antibiotics. Vanco IV discontinued. Local antibiotics. + Wound, Knee/ elbow. MRSA pos. Most likely colonization vs infection. + Hypokalemia: due to poor oral intake, monitor for now, Pt is ESRD on HD, will replace after central line placed. K better today + ESRD on HD, followed by Dr Reagan. + COPD: No wheezing on exam to continue bronchodilators, neg cxr for pna + Fibromyalgia/ Chr pain: On usual meds + CAD no chest pain, on plavix, continue same DVT hep sq DNR code status. Procedures - Arterial Line Size (Gauge): 20
[2017-09-15] MEDS: NOREPINEPHRINE BITARTRATE 16 MG in 0.9 % SODIUM CHLORIDE 234 ML IV SCH (13:56)
[2017-09-15] MEDS: traZODone HCL 50 MG TABLET PO SCH (20:29)
[2017-09-15] MEDS: SENNOSIDES 1 TABLET PO SCH (20:32)
--- NOTE | 2017-09-15 22:33 | Nephrology Progress Note ---
Subjective Patient information: Note initiated : 09/15/17 at 10:31 pm Service Date, if different from initiated Date: [] Patient: Naz Joseph 72 y/o F admitted on 09/08/17 for Hypotension/Small Bowel Obstruction. Chief Complaint: [] Principal diagnosis: End stage renal disease on chronic hemodialysis Interval history: seen this am femoral A line placed yesterday and read 10 points higher and NIBP, levophed tapered at 5mcg/min this am feels better, nausea resolved, no diarrhea abdominal pain Knee abscess healing a little no SOB, CP able to sit up but unable to walk yet no other significant events Pertinent ROS: as above Objective - Vital Signs Vital signs: Vital Signs Temp Pulse Resp BP Pulse Ox 09/15/17 21:31 71 31 H 91/67 91 09/15/17 21:01 69 18 99/65 95 09/15/17 21:00 72 17 96 09/15/17 20:31 21 96/72 09/15/17 20:02 19 09/15/17 20:01 97.0 F 22 96/65 95 09/15/17 19:31 18 91/66 09/15/17 19:01 24 H 98/67 97 09/15/17 18:31 24 H 93/65 97 09/15/17 18:01 24 H 91/63 09/15/17 17:41 22 87/57 09/15/17 17:31 28 H 90/70 09/15/17 17:21 23 H 92/66 09/15/17 17:11 23 H 96/66 09/15/17 17:01 24 H 85/55 09/15/17 17:00 19 09/15/17 16:51 21 78/62 09/15/17 16:44 22 72/59 09/15/17 16:31 65 25 H 82/57 98 09/15/17 16:21 67 19 75/63 95 09/15/17 16:11 67 20 74/62 96 09/15/17 16:06 67 22 82/61 96 09/15/17 16:01 71 23 H 62/43 100 09/15/17 16:00 71 21 97 09/15/17 15:32 72 20 92 09/15/17 15:31 73 22 91/64 100 09/15/17 15:01 65 22 85/63 09/15/17 15:00 66 15 96 09/15/17 14:33 72 16 82/61 93 09/15/17 14:02 74 93 09/15/17 14:01 76 20 101/71 95 09/15/17 14:00 76 24 H 96 09/15/17 13:31 74 20 89/62 96 09/15/17 13:01 74 28 H 80/62 92 09/15/17 13:00 74 19 93 09/15/17 12:31 81 20 85/68 95 09/15/17 12:01 98.7 F 77 17 96/71 96 09/15/17 12:00 77 18 94 09/15/17 11:31 78 21 96/63 94 09/15/17 11:08 81 28 H 09/15/17 11:02 80 22 95 09/15/17 11:01 81 20 94/70 97 09/15/17 11:00 80 19 96 09/15/17 10:31 79 26 H 85/59 95 09/15/17 10:16 81 28 H 86/67 93 09/15/17 10:11 80 23 H 91/68 93 09/15/17 10:09 81 28 H 87/62 94 09/15/17 10:00 82 20 95 09/15/17 09:32 85/64 09/15/17 09:26 83 78/61 95 09/15/17 09:21 83 76/66 97 09/15/17 09:16 85 81/51 92 09/15/17 09:13 86 116/104 94 09/15/17 09:06 86 91/69 91 09/15/17 09:01 86 89/66 96 09/15/17 09:00 86 96 09/15/17 08:56 86 92/65 95 09/15/17 08:51 95/64 09/15/17 08:49 86 35 H 92/68 92 09/15/17 08:43 87 19 100/76 94 09/15/17 08:36 82 94/66 94 09/15/17 08:31 85 18 100/70 91 09/15/17 08:26 86 23 H 98/71 97 09/15/17 08:21 77 22 107/68 84 L 09/15/17 08:16 77 21 105/67 86 L 03/31/18 08:11 77 16 104/68 93 09/15/17 08:07 80 21 97/65 94 09/15/17 08:01 73 16 95/72 92 09/15/17 08:00 80 21 92 09/15/17 07:56 15 102/63 09/15/17 07:51 84 29 H 101/66 71 L 09/15/17 07:46 76 15 91/70 90 09/15/17 07:41 74 13 104/60 96 09/15/17 07:37 78 14 94 09/15/17 07:36 73 13 97/64 87 L 09/15/17 07:31 73 13 91/70 90 09/15/17 07:26 76 12 99/65 100 09/15/17 07:21 76 14 102/69 93 09/15/17 07:16 73 20 90/69 87 L 09/15/17 07:11 72 12 90/68 94 09/15/17 07:06 77 17 100/65 94 09/15/17 07:01 14 92/66 09/15/17 07:00 74 15 83 L 09/15/17 06:56 75 22 87/61 84 L 09/15/17 06:51 72 22 94/68 89 L 09/15/17 06:46 72 26 H 119/107 96 09/15/17 06:41 77 17 106/67 90 09/15/17 06:36 74 22 97/75 95 09/15/17 06:31 71 19 89/65 97 09/15/17 06:28 71 20 87/62 95 09/15/17 06:21 64 67/50 97 09/15/17 06:11 65 20 77/53 97 09/15/17 06:01 66 24 H 71/54 90 09/15/17 05:33 18 98/85 94 09/15/17 05:01 17 85/66 95 09/15/17 04:31 20 99/71 94 09/15/17 04:01 97.7 F 19 96/71 93 09/15/17 03:31 16 89/67 95 09/15/17 03:01 13 93/68 96 09/15/17 02:31 15 97/63 97 09/15/17 02:01 14 83/64 95 09/15/17 01:01 17 84/58 92 09/15/17 00:01 15 89/65 96 09/14/17 23:31 14 87/64 95 09/14/17 23:01 19 81/59 96 Intake and Output 09/15/17 09/15/17 09/16/17 13:59 21:59 05:59 Intake Total 380 / 380 103 / 103 Balance 380 / 380 103 / 103 Intake: IV 380 / 380 103 / 103 Sodium Chloride 0.9% 250 ml @ 250 / 250 20 mls/hr IV .[id number] [facility] Rx#: [id number] Levophed 16 mg In Sodium 30 / 30 3 / 3 Chloride 0.9% 234 ml @ 10 MCG/ MIN 9.37 mls/hr IV Q24H [facility] Rx# :[id number] Other: Stool Size Moderate Stool Color Brown Stool Consistency Loose Weight 186 lb 2 oz Patient Weight 09/16/17 05:59 Weight 186 lb 2 oz Intake & Output: Intake & Output 09/15/17 09/15/17 09/16/17 13:59 21:59 05:59 Intake Total 380 / 380 103 / 103 Balance 380 / 380 103 / 103 Weight 186 lb 2 oz Intake: IV 380 / 380 103 / 103 Sodium Chloride 0.9% 250 ml @ 250 / 250 20 mls/hr IV .[id number] [facility] Rx#: [id number] Levophed 16 mg In Sodium 30 / 30 3 / 3 Chloride 0.9% 234 ml @ 10 MCG/ MIN 9.37 mls/hr IV Q24H [facility] Rx# :[id number] Other: Stool Size Moderate Stool Color Brown Stool Consistency Loose - General Appearance General appearance: appears started age, chronically ill, frail EENT: mucous membranes moist Neck: JVD Respiratory: clear Cardiology: edema, normal S1, normal S2 Gastrointestinal: no tenderness, no guarding Integumentary: ecchymotic, skin tear Neurologic: alert and oriented x3 Musculoskeletal: no erythema, no cyanosis Psychiatric: mood/affect appropriate - Lab 09/15/17 04:38 09/15/17 04:38 Most recent lab results Calcium 9.2 mg/dl (8.6-10.4) 09/15/17 04:38 Phosphorus 3.0 mg/dL (2.7-4.5) 09/15/17 04:38 Magnesium 1.7 mg/dL (1.6-2.5) 09/15/17 04:38 Assessment and Plan (1) ESRD (end stage renal disease) on dialysis will hold off on HD TODAY no emergent need for the same will plan for isoltaed UF tomorrow Hypotension: chronic, worse given acute issues taper levophed as able to keep MAP of more than 65 A line shows 10 point difference in systolic BP INCREASE midodrine to 15mg tid prednisone added e,pirically as had good response to this in the past low albumin: patient encouraged to try and eat on nepro/proein supplement as well Knee abscess: improving slowly with local wound care, followed by wound care team C diff: on antibiotics, diarrhea has resolved fornow Will follow along Appreciate hospitalist help in managing this patient Status: Chronic Priority: Medium (2) Peripheral edema Status: Chronic Comment: must consider diastolic dysfunction with right heart failure and pulmonary HTN CONTRIBUTING causes
[2017-09-16] MEDS: 0.9 % SODIUM CHLORIDE 250 ML IV SCH ×2 (04:47→17:06)
[2017-09-16] MEDS: 0.9 % SODIUM CHLORIDE 10 ML SYRINGE IV SCH ×5 (05:13→20:19)
[2017-09-16] MEDS: metroNIDAZOLE 500 MG/100 ML BAG IV SCH ×3 (05:13→20:25)
[2017-09-16] MEDS: INSULIN LISPRO 1 UNIT/0.01 ML UNIT SQ SCH ×3 (05:53→17:15)
[2017-09-16] MEDS: HEPARIN 5,000 UNIT/ML VIAL SQ SCH ×2 (09:01→20:17)
[2017-09-16] MEDS: PANTOPRAZOLE 40 MG VIAL IV SCH ×2 (09:01→17:05)
[2017-09-16] MEDS: CYANOCOBALAMIN (VITAMIN B-12) 500 MCG TABLET PO SCH (09:01)
[2017-09-16] MEDS: MIDODRINE 5 MG TABLET PO SCH ×3 (09:02→17:06)
[2017-09-16] MEDS: SEVELAMER 800 MG TABLET PO SCH ×3 (09:02→17:05)
[2017-09-16] MEDS: POTASSIUM CHLORIDE 20 MEQ TABLET PO SCH ×2 (09:02→17:07)
[2017-09-16] MEDS: FLUoxetine HCL 20 MG CAPSULE PO SCH (09:02)
[2017-09-16] MEDS: CLOPIDOGREL 75 MG TABLET PO SCH (09:02)
[2017-09-16] MEDS: predniSONE 20 MG TABLET PO SCH (09:02)
[2017-09-16] MEDS: VANCOMYCIN ORAL SOL 1,000 MG/10 ML BOTTLE PO SCH ×4 (09:03→20:20)
[2017-09-16] MEDS: ARIPIPRAZOLE 2 MG PO SCH (09:03)
[2017-09-16] MEDS: GENTAMICIN SULFATE 40 MG, CLINDAMYCIN 300 MG, BACITRACIN 25,000 UNIT in SODIUM CHLORIDE... IRR SCH ×2 (09:04→20:18)
[2017-09-16] MEDS: BUDESONIDE 0.5 MG/2 ML AMPUL.NEB NEB SCH ×2 (09:38→20:07)
[2017-09-16] MEDS: HYDROmorphone 2 MG TABLET PO PRN (09:53)
[2017-09-16 10:51] LABS: ALT/SGPT 8 U/l (0-40); Alkaline Phosphatase 57 U/L (39-117); Bilirubin,Direct 0.2 mg/dL (0.0-0.3); Blood Urea Nitrogen 25 mg/dl (8-23); Gamma Glutamyl Transpeptidase 19 U/L (5-36); Uric Acid 4.6 mg/dL (2.5-8.0)
--- NOTE | 2017-09-16 15:24 | Nephrology Progress Note ---
Subjective Patient information: Note initiated : 09/16/17 at 3:20 pm Service Date, if different from initiated Date: [] Patient: Naz Joseph 72 y/o F admitted on 09/08/17 for Hypotension/Small Bowel Obstruction. Chief Complaint: [] Principal diagnosis: End stage renal disease on chronic hemodialysis Interval history: no overnight events Levophed held this am maintaining map no SOB, CP no other concerns voiced by the pt, though has some diarrhea again eating a little better but still not much Pertinent ROS: as above Objective - Vital Signs Vital signs: Vital Signs Temp Pulse Pulse Resp BP Pulse Ox 09/16/17 12:00 68 23 H 94 09/16/17 11:10 68 26 H 114/90 95 09/16/17 11:01 68 27 H 96/58 96 09/16/17 11:00 67 25 H 94 09/16/17 10:55 66 25 H 91/52 95 09/16/17 10:54 69 29 H 96/64 94 09/16/17 10:52 66 23 H 80/58 94 09/16/17 10:41 67 21 87/54 96 09/16/17 10:32 67 22 69/55 94 09/16/17 10:22 70 24 H 77/55 96 09/16/17 10:14 69 23 H 115/46 95 09/16/17 10:01 71 24 H 75/60 95 09/16/17 10:00 71 27 H 95 09/16/17 09:52 70 27 H 72/56 92 09/16/17 09:49 72 24 H 09/16/17 09:32 73 23 H 94 09/16/17 09:31 74 24 H 81/64 94 09/16/17 09:21 74 19 84/63 95 09/16/17 09:11 74 23 H 89/68 94 09/16/17 09:01 75 18 90/66 97 09/16/17 09:00 76 19 94 09/16/17 08:51 77 24 H 88/54 96 09/16/17 08:41 75 32 H 90/60 90 09/16/17 08:31 73 27 H 100/69 93 09/16/17 08:21 72 26 H 89/65 94 09/16/17 08:16 71 27 H 82/62 95 09/16/17 08:15 72 22 77/62 95 09/16/17 08:14 71 27 H 80/63 95 09/16/17 08:13 71 27 H 88/62 94 09/16/17 08:03 72 24 H 71/53 95 09/16/17 08:00 70 18 96 09/16/17 07:58 71 22 72/55 92 09/16/17 07:31 20 90/62 09/16/17 07:12 94 09/16/17 07:02 67 18 93 09/16/17 07:01 71 19 91/60 94 09/16/17 07:00 67 20 89 L 09/16/17 06:32 71 20 94 09/16/17 06:31 72 25 H 96/66 94 09/16/17 06:02 74 21 89/64 96 09/16/17 05:31 29 H 74/55 09/16/17 05:03 77 25 H 91/62 91 09/16/17 04:32 81 23 H 95 09/16/17 04:31 80 22 124/72 97 09/16/17 04:01 98.9 F 20 106/71 09/16/17 03:32 79 23 H 93/71 95 09/16/17 03:01 26 H 103/92 09/16/17 02:31 72 21 108/71 96 09/16/17 02:01 73 21 71/58 95 09/16/17 01:42 69 96 09/16/17 01:31 71 25 H 94/65 92 09/16/17 01:01 72 25 H 93/70 92 09/16/17 00:31 70 18 79/64 96 09/16/17 00:01 98.1 F 68 15 86/60 92 09/16/17 00:00 70 21 95 09/15/17 23:31 75 26 H 94/66 92 09/15/17 23:01 68 19 92/64 91 09/15/17 22:31 70 20 94/62 92 09/15/17 22:02 70 20 95 09/15/17 22:01 75 24 H 88/67 96 09/15/17 21:31 71 31 H 91/67 91 09/15/17 21:01 69 18 99/65 95 09/15/17 21:00 72 17 96 09/15/17 20:31 21 96/72 09/15/17 20:02 19 09/15/17 20:01 97.0 F 22 96/65 95 09/15/17 19:31 18 91/66 09/15/17 19:01 24 H 98/67 97 09/15/17 18:31 24 H 93/65 97 09/15/17 18:01 24 H 91/63 09/15/17 17:41 22 87/57 09/15/17 17:31 28 H 90/70 09/15/17 17:21 23 H 92/66 09/15/17 17:11 23 H 96/66 09/15/17 17:01 24 H 85/55 09/15/17 17:00 19 09/15/17 16:51 21 78/62 09/15/17 16:44 22 72/59 09/15/17 16:31 65 25 H 82/57 98 09/15/17 16:21 67 19 75/63 95 09/15/17 16:11 67 20 74/62 96 09/15/17 16:06 67 22 82/61 96 09/15/17 16:01 71 23 H 62/43 100 09/15/17 16:00 71 21 97 09/15/17 15:32 72 20 92 09/15/17 15:31 73 22 91/64 100 Intake and Output 09/16/17 09/16/17 09/16/17 05:59 13:59 21:59 Intake Total 303 / 303 411 / 411 0 / 0 Balance 303 / 303 411 / 411 0 / 0 Intake: IV 303 / 303 171 / 171 Sodium Chloride 0.9% 250 ml @ 183 / 183 50 / 50 20 mls/hr IV .[id number] [facility] Rx#: [id number] Levophed 16 mg In Sodium 20 / 20 21 / 21 Chloride 0.9% 234 ml @ 10 MCG/ MIN 9.37 mls/hr IV Q24H [facility] Rx# :[id number] Oral 240 / 240 0 / 0 Other: Meal Jello Breakfast Lunch Percent of Meal Consumed 100% 100% 0% Feeding Ability Independent Stool Size Moderate Stool Color Brown Stool Consistency Soft # Bowel Movements 1 # of times incontinent of 1 Bowels Intake & Output: Intake & Output 04/01/18 04/01/18 04/01/18 05:59 13:59 21:59 Intake Total 303 / 303 411 / 411 0 / 0 Balance 303 / 303 411 / 411 0 / 0 Intake: IV 303 / 303 171 / 171 Sodium Chloride 0.9% 250 ml @ 183 / 183 50 / 50 20 mls/hr IV .[id number] [facility] Rx#: [id number] Levophed 16 mg In Sodium 20 / 20 21 / 21 Chloride 0.9% 234 ml @ 10 MCG/ MIN 9.37 mls/hr IV Q24H [facility] Rx# :[id number] Oral 240 / 240 0 / 0 Other: Meal Jello Breakfast Lunch Percent of Meal Consumed 100% 100% 0% Feeding Ability Independent Stool Size Moderate Stool Color Brown Stool Consistency Soft # Bowel Movements 1 # of times incontinent of 1 Bowels - General Appearance General appearance: appears started age, chronically ill, frail EENT: mucous membranes moist Neck: JVD Respiratory: rales Cardiology: no rub, edema, normal S1, normal S2 Gastrointestinal: no tenderness, no guarding Integumentary: warm and dry Neurologic: alert and oriented x3 Musculoskeletal: no erythema, no cyanosis Psychiatric: mood/affect appropriate - Lab 09/15/17 04:38 09/16/17 09:50 Most recent lab results Calcium 9.3 mg/dl (8.6-10.4) 09/16/17 09:50 Phosphorus 3.2 mg/dL (2.7-4.5) 09/16/17 09:50 Magnesium 1.7 mg/dL (1.6-2.5) 09/16/17 09:50 Assessment and Plan (1) ESRD (end stage renal disease) on dialysis will hold off on HD TODAY, will pna for HD tomorrow no emergent need for the same please call if any change in status Hypotension: chronic, worse given acute issues agree with holding levophed A line shows 10 point difference in systolic BP ct midodrine to 15mg tid prednisone added empirically as had good response to this in the past will assess response to BP with occlusion of AVF and if significant will refer to IR for ligation of AVF and plACE low albumin: patient encouraged to try and eat on nepro/protein supplement as well Knee abscess: improving slowly with local wound care, followed by wound care team C diff: on antibiotics Patient has overall very poor prognosis she has refused hospice on multiple occasions I have tried to address this with her She understands if her BP does not improve with ligation of AVF she may need to go comfort care as unable to dialysis as outpt, unable to achieve any UF will monitor closely for now given patient wishes Will follow along Appreciate hospitalist help in managing this patient Status: Chronic Priority: Medium (2) Peripheral edema Status: Chronic Comment: must consider diastolic dysfunction with right heart failure and pulmonary HTN CONTRIBUTING causes
--- NOTE | 2017-09-16 16:29 | Internal Med Progress Note ---
Medical - PN: Subj Patient information: Note initiated : 09/16/17 at 4:23 pm Service Date, if different from initiated Date: [] Patient: Naz Joseph a 72 y/o F admitted on 09/08/17 for Hypotension/Small Bowel Obstruction. Interval history: Ms. Joseph is a 72 year old Female with h/o end-stage renal disease on dialysis follows with Dr. REAGAN, the patient presents to the emergency room after being sent from dialysis to the ER for low blood pressure. According to the patient she has not been well for the last 2 weeks. She has been weak, she fell down reports this as a mechanical fall and injured the right side of the knee. She developed a wound for which she has been followed by the wound care clinic. According to the patient history the swab taken from that wound was growing MRSA, patient is on Bactrim and Keflex for same. The patient has been having ongoing diarrhea for approximately last 1 week liquid watery dark green 4-5 episodes every day, she has been getting weaker and more fatigued. She has had decreased appetite and has not been eating or drinking very well. She also admits to be having some nausea. The patient reports that she is not able to ambulate well and finds it difficult to even get up and move around. She presented for dialysis at which point in time she was noted to have low blood pressures with systolic in 70s, he was therefore sent to the emergency room for further evaluation. The patient also notes that she has subjective sensations of chills and intermittent shakes which have been progressively getting worse over the last weeks. Has any documented fever, has chronic headaches worse now, no dizziness , no changes in vision, has dry mouth no difficulty in swallowing no changes in hearing, no neck swelling or lymphadenopathy no bleeding. She has shortness of breath on exertion which is far worse than her baseline. She denies any chest pain, has nausea no abdominal pain she had diarrhea over the last 1 week. The patient denies any acute joint swelling or joint pain besides the right knee. In the emergency room the patient was afebrile, heart rate 67 blood pressure 78/ 61, saturating 98% on room air, White blood cell count was 8.8 hemoglobin 12.9 platelets 155, sodium 138, potassium 2.9, bicarbonate 29 creatinine 4.6 glucose level was 81. The patient's x-ray of the abdomen showed possible small bowel obstruction, CT scan of the abdomen was done with contrast after consultation with nephrology and was tentatively reported as small bowel obstruction. Dr. Ricketts the general surgeon was consulted from the emergency room. He would be seeing the patient. The patient's right knee had an ulcer with erythema extending on the anterior aspect of the knee, on my exam there was fluctuation likely infected bursitis Given low blood pressure, which remained low despite 2 L of fluid resuscitation possible abscess, small bowel obstruction the patient has been admitted to the ICU for further management. September 09 Patient seen examined, feeling better, on Levophed, patient has no acute complaints, appreciate help from surgery as well as nephrology. X-ray abdomen repeated today. Patient is scheduled for dialysis today. Central line placed yesterday, CVP is elevated at 15-18. Echo ordered. Cdif positive. September 10 On Vanco po for C dif. Liquid diarrhea. Rectal tube in. Still profuse diarrhea. Will add Metronidazole IV Examined knee R with dr Pedraza. Don't think it's infected, or requires systemic antibiotics. Case d/w nephrology (dr Bynum): HD for fluid overload today. Still on Levophed gtt. September 11 HD today. CVP was 20. Was drinking lots of fluid. Now on fluid restriction. Levophed at 10. Still significant stool output, but more formed. Considering placement of femoral a-line, but should wait till C.dif resolved. Will increase Florinef from 0.05 q 48 hr to 0.1 daily September 12 Less stool out put. Tolerating full liquid diet. CVP 15. Levophed 8-10 mcg. HD 2-3 L off. Discussed the many problems with patient. Limited treatment options available if hypotension persists. September 13 Abdominal pain and severe nausea this am. KUB: no evidence of obstruction On Levo 5 mcg/min September 14 Still requiring Levophed 5 - 10 mcg/min to keep MAP 65 Diarrhea resolved. Still on Vanco po and Flagyl IV for C dif colitis. Plan today: arterial fem cath placement September 15 A-line reading about 10 mm Hg higher than cuff Diarrhea resolved Feeling better September 16 Few BMs, soft Required Levophed 2 to keep MAP > 65. Patient states she hasn't been symptomatic with SBPs in 80's. Will discontinued Levo and advance activity to chair BID - Constitutional Vitals: Vital Signs Temp Pulse Resp BP Pulse Ox 98.9 F 61 13 86/61 96 09/16/17 16:02 09/16/17 16:02 09/16/17 16:02 09/16/17 16:02 09/16/17 16:02 Period Temp Pulse Resp BP Sys/Millan Pulse Ox Last 24 Hr 97.0 F-98.9 F 59-81 13-32 69-124/46-92 89-98 Intake and Output 09/16/17 09/16/17 09/16/17 05:59 13:59 21:59 Intake Total 303 / 303 411 / 411 0 / 0 Balance 303 / 303 411 / 411 0 / 0 Intake & Output: Intake & Output 09/16/17 09/16/17 09/16/17 05:59 13:59 21:59 Intake Total 303 / 303 411 / 411 0 / 0 Balance 303 / 303 411 / 411 0 / 0 Intake: IV 303 / 303 171 / 171 Sodium Chloride 0.9% 250 ml @ 183 / 183 50 / 50 20 mls/hr IV .[id number] [facility] Rx#: [id number] Levophed 16 mg In Sodium 20 / 20 21 / 21 Chloride 0.9% 234 ml @ 10 MCG/ MIN 9.37 mls/hr IV Q24H [facility] Rx# :[id number] Oral 240 / 240 0 / 0 Other: Meal Jello Breakfast Lunch Percent of Meal Consumed 100% 100% 0% Feeding Ability Independent Stool Size Moderate Stool Color Brown Stool Consistency Soft # Bowel Movements 1 # of times incontinent of 1 Bowels General appearance: no acute distress - Respiratory Respiratory exam: Present: normal respiratory exam - Cardiovascular Cardiovascular exam: Present: normal rate and rhythm - GI/Abdominal GI/Abdominal exam: Present: normal bowel sounds - Extremities Exam Extremities exam: Absent: pedal edema Medical - PN: Obj Da - Labs CBC & Chem 7: 09/15/17 04:38 09/16/17 09:50 Labs: Abnormal Lab Results 09/16/17 09/15/17 09/15/17 09:50 04:38 04:38 WBC 12.0 H RBC 3.25 L MCV 115.0 H MCH 38.0 H RDW 20.8 H MPV 10.5 H Lymph % (Auto) 8.8 L [place] % (Auto) Gran # 9.3 H Lymph # (Auto) 1.1 L [place] # (Auto) 1.3 H Carbon Dioxide 20 L Anion Gap 17.0 H BUN 25 H Creatinine 4.0 H 3.2 H Glucose 140 H Albumin 3.0 L 3.1 L 09/14/17 09/14/17 03:49 03:49 WBC RBC 3.38 L MCV 115.1 H MCH 37.8 H RDW 21.4 H MPV Lymph % (Auto) 11.8 L [place] % (Auto) 12.2 H Gran # Lymph # (Auto) 0.9 L [place] # (Auto) Carbon Dioxide Anion Gap BUN Creatinine 4.2 H Glucose Albumin 3.0 L Meds: Medications Acetaminophen (Tylenol) 650 mg PO Q4-6HP PRN PRN Reason: PAIN/FEVER > 101 Last Admin: 09/11/17 12:11 Dose: 650 mg Budesonide (Pulmicort) 0.5 mg NEB Q12 [facility] Last Admin: 09/16/17 09:38 Dose: 0.5 mg Clopidogrel Bisulfate (Plavix) 75 mg PO DAILY [facility] Last Admin: 09/16/17 09:02 Dose: 75 mg Cyanocobalamin (Vitamin B-12) 1,000 mcg PO DAILY [facility] Last Admin: 09/16/17 09:01 Dose: 1,000 mcg Dextrose (Dextrose 50%) 0 ml IV UD PRN PRN Reason: Hypoglycemia Last Admin: 09/09/17 01:10 Dose: 25 ml Diagnostic Test (Pha) (Accu-Chek) 1 each FS Q6 [facility] Last Admin: 09/16/17 12:10 Dose: 1 each Fluoxetine HCl (Prozac) 40 mg PO DAILY [facility] Last Admin: 09/16/17 09:02 Dose: 40 mg Heparin Sodium (Porcine) (Heparin) 5,000 unit SQ Q12 [facility] Last Admin: 09/16/17 09:01 Dose: 5,000 unit Hydromorphone HCl (Dilaudid) 2 mg PO Q8HP PRN PRN Reason: Pain Last Admin: 09/16/17 09:53 Dose: 2 mg Gentamicin Sulfate 40 mg/Clindamycin Phosphate 300 mg/Bacitracin 25,000 unit/ Sodium Chloride 503 mls @ 0 mls/hr IRR BID [facility] PRN Reason: As Directed Last Admin: 09/16/17 09:04 Dose: 1 mls/hr Metronidazole (Flagyl) 500 mg in 100 mls @ 100 mls/hr IV Q8H [facility] Last Infusion: 09/16/17 06:20 Dose: Infused Acetaminophen (Ofirmev) 1,000 mg in 100 mls @ 200 mls/hr IV Q6HP PRN PRN Reason: PAIN/FEVER > 101 Last Infusion: 09/14/17 10:05 Dose: Infused Sodium Chloride (Sodium Chloride 0.9%) 250 mls @ 20 mls/hr IV .[id number] [facility] Last Infusion: 09/16/17 09:49 Dose: 0 mls/hr Insulin Human Lispro (Humalog) 0 unit SQ Q6 [facility] PRN Reason: Protocol Last Admin: 09/16/17 12:11 Dose: Not Given Lorazepam (Ativan) 0.5 mg IV Q4HP PRN PRN Reason: Anxiety Last Admin: 09/09/17 21:19 Dose: 0.5 mg Midodrine (Midodrine Hcl) 15 mg PO TID@0800,1200,1700 [facility] Last Admin: 09/16/17 12:10 Dose: 15 mg Aripiprazole [ Aripiprazole] 2 Mg Tablet 2 mg PO QDAY [facility] Last Admin: 09/16/17 09:03 Dose: 2 mg Ondansetron HCl (Zofran) 4 mg IV Q4-6HP PRN PRN Reason: Nausea And Vomiting Last Admin: 09/13/17 17:53 Dose: 4 mg Pantoprazole Sodium (Protonix) 40 mg IV BIDAC [facility] Last Admin: 09/16/17 09:01 Dose: 40 mg Potassium Chloride (Kdur) 20 meq PO BIDCC [facility] Last Admin: 09/16/17 09:02 Dose: 20 meq Prednisone (Prednisone) 40 mg PO QAMCC [facility] Last Admin: 09/16/17 09:02 Dose: 40 mg Promethazine HCl (Phenergan) 12.5 mg IV Q6-8HP PRN PRN Reason: Nausea And Vomiting Last Admin: 09/13/17 16:26 Dose: 12.5 mg Senna (Senokot) 1 tab PO HS [facility] Last Admin: 09/15/17 20:32 Dose: Not Given Sevelamer Carbonate (Renvela) 800 mg PO TIDAC [facility] Last Admin: 09/16/17 12:10 Dose: 800 mg Sodium Chloride (Saline Flush) 10 ml IV Q8 [facility] Last Admin: 09/16/17 05:13 Dose: 10 ml Sodium Chloride (Saline Flush) 10 ml IV Q12 [facility] Last Admin: 09/16/17 09:04 Dose: 10 ml Trazodone HCl (Desyrel) 250 mg PO HS [facility] Last Admin: 09/15/17 20:29 Dose: 250 mg Vancomycin HCl (Vancomycin Oral Lizy) 125 mg PO QID [facility] Last Admin: 09/16/17 12:10 Dose: 125 mg Medical - PN: A/P - Time Spent With Patient Total time spent is greater than 50% in coordination of care (as documented) at patient's floor/unit and/or counseling patient: - Narrative A/P Narrative: + Hypotension : despite 2 L fluids, likely from dehydration and infection, treat underlying infection, IV fluids, central line placed. Usually takes midodrine at home, but this time despite 2 doses, bp remained low. No evidence of sepsis, but has C.dif colitis. On Vanco po and Flagyl IV since . No blood cultures were obtained on admissions. On Midodrine and Florinef. Dose Florinef increased 09/11 to 0.1 mg daily 09/14 femoral artery cath placement: SBP about 10 mg higher than cuff IV steroids x 1 given 09/14 empirically. Pt feeling better + Small bowel obstruction? More likely C.dif colitis. Appreciate dr Ricketts's help. No obstruction. Symptoms resolving + Diarrhea: positive for C dif toxin. Vanco po started 09/09 and added Flagyl IV 09/10. Diarrhea resolved 09/14 + Right knee bursitis/ Open wound: Possibly infected bursits vs hematoma vs reactionary swelling , get X Ray of the knee is reported negative. Wound inspection done with dr Pedraza 09/10. No indication for systemic antibiotics. Vanco IV discontinued. Local antibiotics. + Wound, Knee/ elbow. MRSA pos. Most likely colonization vs infection. + Hypokalemia: due to poor oral intake, monitor for now, Pt is ESRD on HD, will replace after central line placed. K better today + ESRD on HD, followed by Dr Reagan. + COPD: No wheezing on exam to continue bronchodilators, neg cxr for pna + Fibromyalgia/ Chr pain: On usual meds + CAD no chest pain, on plavix, continue same May have to hold if going for procedure. DVT hep sq DNR code status. Procedures - Arterial Line Size (Gauge): 20
[2017-09-16] MEDS: traZODone HCL 50 MG TABLET PO SCH (20:17)
[2017-09-16] MEDS: SENNOSIDES 1 TABLET PO SCH (20:19)
[2017-09-17] MEDS: INSULIN LISPRO 1 UNIT/0.01 ML UNIT SQ SCH ×4 (00:50→17:14)
[2017-09-17] MEDS: 0.9 % SODIUM CHLORIDE 250 ML IV SCH ×2 (04:24→17:14)
[2017-09-17] MEDS: FLUDROCORTISONE 0.1 MG TABLET PO SCH (04:24)
[2017-09-17] MEDS: metroNIDAZOLE 500 MG/100 ML BAG IV SCH ×3 (05:32→21:55)
[2017-09-17] MEDS: 0.9 % SODIUM CHLORIDE 10 ML SYRINGE IV SCH ×5 (05:43→21:56)
[2017-09-17 08:16] LABS: ALT/SGPT 8 U/l (0-40); Albumin 3.2 gm/dL (3.2-5.2); Albumin/Globulin Ratio 1.1 (1.0-2.3); Alkaline Phosphatase 63 U/L (39-117); Blood Urea Nitrogen 35 mg/dl (8-23)
[2017-09-17] MEDS: MIDODRINE 5 MG TABLET PO SCH ×3 (08:29→16:40)
[2017-09-17] MEDS: CYANOCOBALAMIN (VITAMIN B-12) 500 MCG TABLET PO SCH (08:30)
[2017-09-17] MEDS: CLOPIDOGREL 75 MG TABLET PO SCH (08:30)
[2017-09-17] MEDS: predniSONE 20 MG TABLET PO SCH (08:30)
[2017-09-17] MEDS: SEVELAMER 800 MG TABLET PO SCH ×3 (08:30→16:41)
[2017-09-17] MEDS: FLUoxetine HCL 20 MG CAPSULE PO SCH (08:30)
[2017-09-17] MEDS: PANTOPRAZOLE 40 MG VIAL IV SCH (08:30)
[2017-09-17] MEDS: HEPARIN 5,000 UNIT/ML VIAL SQ SCH ×2 (08:30→21:09)
[2017-09-17] MEDS: ARIPIPRAZOLE 2 MG PO SCH (08:31)
[2017-09-17] MEDS: POTASSIUM CHLORIDE 20 MEQ TABLET PO SCH ×2 (08:31→16:39)
[2017-09-17] MEDS: VANCOMYCIN ORAL SOL 1,000 MG/10 ML BOTTLE PO SCH ×4 (08:31→21:09)
[2017-09-17] MEDS: GENTAMICIN SULFATE 40 MG, CLINDAMYCIN 300 MG, BACITRACIN 25,000 UNIT in SODIUM CHLORIDE... IRR SCH ×2 (08:32→22:58)
--- NOTE | 2017-09-17 09:44 | Internal Med Progress Note ---
Medical - PN: Subj Patient information: Note initiated : 09/17/17 at 9:38 am Service Date, if different from initiated Date: [] Patient: Naz Joseph a 72 y/o F admitted on 09/08/17 for Hypotension/Small Bowel Obstruction. Interval history: Ms. Joseph is a 72 year old Female with h/o end-stage renal disease on dialysis follows with Dr. REAGAN, the patient presents to the emergency room after being sent from dialysis to the ER for low blood pressure. According to the patient she has not been well for the last 2 weeks. She has been weak, she fell down reports this as a mechanical fall and injured the right side of the knee. She developed a wound for which she has been followed by the wound care clinic. According to the patient history the swab taken from that wound was growing MRSA, patient is on Bactrim and Keflex for same. The patient has been having ongoing diarrhea for approximately last 1 week liquid watery dark green 4-5 episodes every day, she has been getting weaker and more fatigued. She has had decreased appetite and has not been eating or drinking very well. She also admits to be having some nausea. The patient reports that she is not able to ambulate well and finds it difficult to even get up and move around. She presented for dialysis at which point in time she was noted to have low blood pressures with systolic in 70s, he was therefore sent to the emergency room for further evaluation. The patient also notes that she has subjective sensations of chills and intermittent shakes which have been progressively getting worse over the last weeks. Has any documented fever, has chronic headaches worse now, no dizziness , no changes in vision, has dry mouth no difficulty in swallowing no changes in hearing, no neck swelling or lymphadenopathy no bleeding. She has shortness of breath on exertion which is far worse than her baseline. She denies any chest pain, has nausea no abdominal pain she had diarrhea over the last 1 week. The patient denies any acute joint swelling or joint pain besides the right knee. In the emergency room the patient was afebrile, heart rate 67 blood pressure 78/ 61, saturating 98% on room air, White blood cell count was 8.8 hemoglobin 12.9 platelets 155, sodium 138, potassium 2.9, bicarbonate 29 creatinine 4.6 glucose level was 81. The patient's x-ray of the abdomen showed possible small bowel obstruction, CT scan of the abdomen was done with contrast after consultation with nephrology and was tentatively reported as small bowel obstruction. Dr. Ricketts the general surgeon was consulted from the emergency room. He would be seeing the patient. The patient's right knee had an ulcer with erythema extending on the anterior aspect of the knee, on my exam there was fluctuation likely infected bursitis Given low blood pressure, which remained low despite 2 L of fluid resuscitation possible abscess, small bowel obstruction the patient has been admitted to the ICU for further management. September 09 Patient seen examined, feeling better, on Levophed, patient has no acute complaints, appreciate help from surgery as well as nephrology. X-ray abdomen repeated today. Patient is scheduled for dialysis today. Central line placed yesterday, CVP is elevated at 15-18. Echo ordered. Cdif positive. September 10 On Vanco po for C dif. Liquid diarrhea. Rectal tube in. Still profuse diarrhea. Will add Metronidazole IV Examined knee R with dr Pedraza. Don't think it's infected, or requires systemic antibiotics. Case d/w nephrology (dr Bynum): HD for fluid overload today. Still on Levophed gtt. September 11 HD today. CVP was 20. Was drinking lots of fluid. Now on fluid restriction. Levophed at 10. Still significant stool output, but more formed. Considering placement of femoral a-line, but should wait till C.dif resolved. Will increase Florinef from 0.05 q 48 hr to 0.1 daily September 12 Less stool out put. Tolerating full liquid diet. CVP 15. Levophed 8-10 mcg. HD 2-3 L off. Discussed the many problems with patient. Limited treatment options available if hypotension persists. September 13 Abdominal pain and severe nausea this am. KUB: no evidence of obstruction On Levo 5 mcg/min September 14 Still requiring Levophed 5 - 10 mcg/min to keep MAP 65 Diarrhea resolved. Still on Vanco po and Flagyl IV for C dif colitis. Plan today: arterial fem cath placement September 15 A-line reading about 10 mm Hg higher than cuff Diarrhea resolved Feeling better September 16 Few BMs, soft Required Levophed 2 to keep MAP > 65. Patient states she hasn't been symptomatic with SBPs in 80's. Will discontinued Levo and advance activity to chair BID September 17 Day 8 of Vanco po and Flagyl IV for severe C.dif colitis Is doing better. SBP around 90's off Levophed x 24 hours. For HD today For ligation AV-fistula sometime this week and placement HD catheter. Will hold Plavix ? d/c CVP line - Constitutional Vitals: Vital Signs Temp Pulse Resp BP Pulse Ox 97.9 F 61 14 93/68 95 09/17/17 07:01 09/17/17 07:01 09/17/17 07:01 09/17/17 07:01 09/17/17 07:13 Period Temp Pulse Resp BP Sys/Millan Pulse Ox Last 24 Hr 97.6 F-98.9 F 58-72 13-30 69-119/23-90 85-99 Intake and Output 09/16/17 09/17/17 09/17/17 21:59 05:59 13:59 Intake Total 250 / 250 580 / 580 340 / 340 Balance 250 / 250 580 / 580 340 / 340 Weight 186 lb 2 oz Intake & Output: Intake & Output 09/16/17 09/17/17 09/17/17 21:59 05:59 13:59 Intake Total 250 / 250 580 / 580 340 / 340 Balance 250 / 250 580 / 580 340 / 340 Weight 186 lb 2 oz Intake: IV 100 / 100 100 / 100 100 / 100 Oral 150 / 150 240 / 240 GI Tube Flush 480 / 480 Other: Meal Lunch Breakfast Percent of Meal Consumed 25% 75% Stool Size Small Stool Color Brown Stool Consistency Soft Formed Loose # of times incontinent of 1 Bowels General appearance: no acute distress Exam: Chronically-ill appearing - Respiratory Respiratory exam: Present: normal respiratory exam - Cardiovascular Cardiovascular exam: Present: normal rate and rhythm - GI/Abdominal GI/Abdominal exam: Present: normal bowel sounds, soft - Extremities Exam Extremities exam: Absent: pedal edema Additional comments: Edematous dependent areas (sacral and thighs) Medical - PN: Obj Da - Labs CBC & Chem 7: 09/15/17 04:38 09/17/17 07:23 Labs: Abnormal Lab Results 09/17/17 09/16/17 09/15/17 07:23 09:50 04:38 WBC RBC MCV MCH RDW MPV Lymph % (Auto) Gran # Lymph # (Auto) [place] # (Auto) Carbon Dioxide 18 L 20 L Anion Gap 19.0 H 17.0 H BUN 35 H 25 H Creatinine 4.7 H 4.0 H 3.2 H Glucose 140 H Albumin 3.0 L 3.1 L 09/15/17 04:38 WBC 12.0 H RBC 3.25 L MCV 115.0 H MCH 38.0 H RDW 20.8 H MPV 10.5 H Lymph % (Auto) 8.8 L Gran # 9.3 H Lymph # (Auto) 1.1 L [place] # (Auto) 1.3 H Carbon Dioxide Anion Gap BUN Creatinine Glucose Albumin Meds: Medications Acetaminophen (Tylenol) 650 mg PO Q4-6HP PRN PRN Reason: PAIN/FEVER > 101 Last Admin: 09/11/17 12:11 Dose: 650 mg Budesonide (Pulmicort) 0.5 mg NEB Q12 [facility] Last Admin: 09/16/17 20:07 Dose: 0.5 mg Clopidogrel Bisulfate (Plavix) 75 mg PO DAILY [facility] Last Admin: 09/17/17 08:30 Dose: 75 mg Cyanocobalamin (Vitamin B-12) 1,000 mcg PO DAILY [facility] Last Admin: 09/17/17 08:30 Dose: 1,000 mcg Dextrose (Dextrose 50%) 0 ml IV UD PRN PRN Reason: Hypoglycemia Last Admin: 09/09/17 01:10 Dose: 25 ml Diagnostic Test (Pha) (Accu-Chek) 1 each FS Q6 [facility] Last Admin: 09/17/17 05:42 Dose: 1 each Fluoxetine HCl (Prozac) 40 mg PO DAILY [facility] Last Admin: 09/17/17 08:30 Dose: 40 mg Heparin Sodium (Porcine) (Heparin) 5,000 unit SQ Q12 [facility] Last Admin: 09/17/17 08:30 Dose: 5,000 unit Hydromorphone HCl (Dilaudid) 2 mg PO Q8HP PRN PRN Reason: Pain Last Admin: 09/16/17 09:53 Dose: 2 mg Gentamicin Sulfate 40 mg/Clindamycin Phosphate 300 mg/Bacitracin 25,000 unit/ Sodium Chloride 503 mls @ 0 mls/hr IRR BID [facility] PRN Reason: As Directed Last Admin: 09/17/17 08:32 Dose: 1 mls/hr Metronidazole (Flagyl) 500 mg in 100 mls @ 100 mls/hr IV Q8H [facility] Last Infusion: 09/17/17 08:32 Dose: Infused Acetaminophen (Ofirmev) 1,000 mg in 100 mls @ 200 mls/hr IV Q6HP PRN PRN Reason: PAIN/FEVER > 101 Last Infusion: 09/14/17 10:05 Dose: Infused Sodium Chloride (Sodium Chloride 0.9%) 250 mls @ 20 mls/hr IV .[id number] [facility] Last Admin: 09/17/17 04:24 Dose: Not Given Insulin Human Lispro (Humalog) 0 unit SQ Q6 [facility] PRN Reason: Protocol Last Admin: 09/17/17 06:22 Dose: Not Given Lorazepam (Ativan) 0.5 mg IV Q4HP PRN PRN Reason: Anxiety Last Admin: 09/09/17 21:19 Dose: 0.5 mg Midodrine (Midodrine Hcl) 15 mg PO TID@0800,1200,1700 [facility] Last Admin: 09/17/17 08:29 Dose: 15 mg Aripiprazole [ Aripiprazole] 2 Mg Tablet 2 mg PO QDAY [facility] Last Admin: 09/17/17 08:31 Dose: 2 mg Ondansetron HCl (Zofran) 4 mg IV Q4-6HP PRN PRN Reason: Nausea And Vomiting Last Admin: 09/13/17 17:53 Dose: 4 mg Pantoprazole Sodium (Protonix) 40 mg IV BIDAC [facility] Last Admin: 09/17/17 08:30 Dose: 40 mg Potassium Chloride (Kdur) 20 meq PO BIDCC [facility] Last Admin: 09/17/17 08:31 Dose: Not Given Prednisone (Prednisone) 40 mg PO QAMCC [facility] Last Admin: 09/17/17 08:30 Dose: 40 mg Promethazine HCl (Phenergan) 12.5 mg IV Q6-8HP PRN PRN Reason: Nausea And Vomiting Last Admin: 09/13/17 16:26 Dose: 12.5 mg Senna (Senokot) 1 tab PO HS [facility] Last Admin: 09/16/17 20:19 Dose: Not Given Sevelamer Carbonate (Renvela) 800 mg PO TIDAC [facility] Last Admin: 09/17/17 08:30 Dose: 800 mg Sodium Chloride (Saline Flush) 10 ml IV Q8 [facility] Last Admin: 09/17/17 05:43 Dose: Not Given Sodium Chloride (Saline Flush) 10 ml IV Q12 [facility] Last Admin: 09/17/17 08:31 Dose: 10 ml Trazodone HCl (Desyrel) 250 mg PO HS [facility] Last Admin: 09/16/17 20:17 Dose: 250 mg Vancomycin HCl (Vancomycin Oral Lizy) 125 mg PO QID [facility] Last Admin: 09/17/17 08:31 Dose: 125 mg Medical - PN: A/P - Time Spent With Patient Total time spent is greater than 50% in coordination of care (as documented) at patient's floor/unit and/or counseling patient: - Narrative A/P Narrative: + Hypotension : despite 2 L fluids, likely from dehydration and infection, treat underlying infection, IV fluids, central line placed. Usually takes midodrine at home, but this time despite 2 doses, bp remained low. No evidence of sepsis, but has C.dif colitis. On Vanco po and Flagyl IV since . No blood cultures were obtained on admissions. On Midodrine and Florinef. Dose Florinef increased 09/11 to 0.1 mg daily 09/14 femoral artery cath placement: SBP about 10 mg higher than cuff. Removed after few hours IV steroids x 1 given 09/14 empirically. Pt feeling better On Prednisone 40 mg daily + Small bowel obstruction? More likely C.dif colitis. Appreciate dr Ricketts's help. No obstruction. Symptoms resolving + Diarrhea: positive for C dif toxin. Vanco po started 09/09 and added Flagyl IV 09/10. Diarrhea resolved 09/14 + Right knee bursitis/ Open wound: Possibly infected bursits vs hematoma vs reactionary swelling , get X Ray of the knee is reported negative. Wound inspection done with dr Pedraza 09/10. No indication for systemic antibiotics. Vanco IV discontinued. Local antibiotics. + Wound, Knee/ elbow. MRSA pos. Most likely colonization vs infection. + Hypokalemia: replace K as needed + ESRD on HD, followed by Dr Reagan. + COPD: No wheezing on exam to continue bronchodilators, neg cxr for pna + Fibromyalgia/ Chr pain: On usual meds + CAD no chest pain, on plavix Hold Plavix /, for upcoming HD placement after AVfistula ligation DVT hep sq DNR code status. Procedures - Arterial Line Size (Gauge): 20
[2017-09-17] MEDS ORDERED: LORazepam 0.5 MG TABLET PO PRN (09:48)
[2017-09-17] MEDS: BUDESONIDE 0.5 MG/2 ML AMPUL.NEB NEB SCH ×2 (10:06→20:17)
[2017-09-17] MEDS ORDERED: HYDROmorphone 2 MG TABLET PO PRN (10:55)
--- NOTE | 2017-09-17 16:16 | Nephrology Progress Note ---
Subjective Patient information: Note initiated : 09/17/17 at 4:11 pm Service Date, if different from initiated Date: [] Patient: Naz Joseph 72 y/o F admitted on 09/08/17 for Hypotension/Small Bowel Obstruction. Chief Complaint: [] Principal diagnosis: End stage renal disease on chronic hemodialysis Interval history: seen this am feels well, trying to do PT eating a little but still not very good no significant diarrhea BP holding stable, off of levophed, MAP more than 65 denies worsening SOB, CP does have significant edema Pertinent ROS: as above Objective - Vital Signs Vital signs: Vital Signs Temp Pulse Resp BP Pulse Ox 09/17/17 15:55 74 90/64 09/17/17 15:31 67 18 90/64 100 09/17/17 15:21 97.1 F 76 94/68 09/17/17 15:19 65 21 94/68 99 09/17/17 15:03 65 27 H 99 09/17/17 15:00 65 27 H 100 09/17/17 14:47 66 26 H 93/68 100 09/17/17 14:31 68 27 H 87/62 98 09/17/17 14:23 66 28 H 93/70 100 09/17/17 14:01 67 30 H 100/54 97 09/17/17 14:00 66 26 H 100 09/17/17 13:53 75 104/61 09/17/17 13:49 69 20 97 09/17/17 13:48 69 29 H 104/61 99 09/17/17 13:31 69 23 H 84/70 97 09/17/17 13:11 96.7 F L 74 90/65 09/17/17 13:10 67 18 90/65 97 09/17/17 13:04 68 24 H 97 09/17/17 13:00 68 22 99 09/17/17 12:54 96.7 F L 69 31 H 103/83 98 09/17/17 12:51 73 23 H 93 09/17/17 12:34 53 L 18 85 L 09/17/17 12:02 65 22 95 09/17/17 12:01 66 25 H 83/61 95 09/17/17 12:00 97.7 F 64 24 H 89 L 09/17/17 11:01 18 102/59 09/17/17 11:00 26 H 09/17/17 10:27 22 09/17/17 10:26 24 H 99/63 09/17/17 10:23 26 H 88/62 09/17/17 10:01 25 H 89/61 09/17/17 10:00 24 H 09/17/17 09:51 26 H 09/17/17 09:50 25 H 128/88 95 09/17/17 09:24 24 H 154/96 09/17/17 09:00 26 H 09/17/17 08:01 16 98/69 09/17/17 08:00 20 09/17/17 07:13 95 09/17/17 07:02 63 17 94 09/17/17 07:01 97.9 F 61 14 93/68 93 09/17/17 07:00 63 18 96 09/17/17 06:01 64 19 78/61 97 09/17/17 06:00 64 16 78/61 98 09/17/17 05:02 62 22 94 09/17/17 05:01 64 24 H 96/58 96 09/17/17 05:00 62 23 H 94 09/17/17 04:31 64 22 97/69 95 09/17/17 04:02 62 29 H 88 L 09/17/17 04:01 62 29 H 82/53 88 L 09/17/17 04:00 62 23 H 89 L 09/17/17 03:31 64 22 106/89 94 09/17/17 03:06 65 23 H 93 09/17/17 03:05 65 25 H 95 09/17/17 03:00 17 09/17/17 02:01 16 89/60 09/17/17 02:00 63 24 H 94 09/17/17 01:33 65 21 91/65 91 02 01:31 64 29 H 80/23 91 02 01:02 62 28 H 92 09/17/17 01:01 66 30 H 98/66 92 09/17/17 01:00 63 30 H 92 09/17/17 00:31 61 24 H 88/70 85 L 09/17/17 00:02 62 18 97 09/17/17 00:01 97.9 F 63 18 88/66 98 09/17/17 00:00 60 19 99 09/16/17 23:33 61 18 87/59 96 09/16/17 23:01 59 L 18 89/60 95 09/16/17 23:00 60 18 95 09/16/17 22:31 63 18 88/66 94 09/16/17 22:02 62 19 94 09/16/17 22:01 62 22 91/68 94 09/16/17 22:00 62 24 H 95 09/16/17 21:58 63 21 78/45 96 09/16/17 21:32 66 21 96 09/16/17 21:01 62 20 96/70 93 09/16/17 21:00 62 21 93 09/16/17 20:32 62 18 95 09/16/17 20:31 62 23 H 88/70 94 09/16/17 20:15 64 23 H 09/16/17 20:01 97.6 F 60 14 84/69 97 09/16/17 20:00 62 14 97 09/16/17 19:32 58 L 17 94 09/16/17 19:31 58 L 19 93/73 94 09/16/17 19:01 59 L 20 98/69 91 09/16/17 19:00 58 L 21 93 09/16/17 18:31 58 L 13 92/74 94 09/16/17 18:01 65 23 H 119/56 96 09/16/17 18:00 65 21 99 09/16/17 17:32 63 28 H 95/63 91 09/16/17 17:01 62 21 94/61 95 09/16/17 17:00 62 22 96 09/16/17 16:31 65 19 88/63 96 Intake and Output 09/17/17 09/17/17 09/17/17 05:59 13:59 21:59 Intake Total 580 / 580 340 / 340 Balance 580 / 580 340 / 340 Intake: IV 100 / 100 100 / 100 Oral 240 / 240 GI Tube Flush 480 / 480 Other: Meal Breakfast Percent of Meal Consumed 75% Stool Size Small Stool Color Brown Stool Consistency Soft Formed Loose # of times incontinent of 1 Bowels Weight 186 lb 2 oz Patient Weight 09/18/17 05:59 Weight 186 lb 2 oz Intake & Output: Intake & Output 09/17/17 09/17/17 09/17/17 05:59 13:59 21:59 Intake Total 580 / 580 340 / 340 Balance 580 / 580 340 / 340 Weight 186 lb 2 oz Intake: IV 100 / 100 100 / 100 Oral 240 / 240 GI Tube Flush 480 / 480 Other: Meal Breakfast Percent of Meal Consumed 75% Stool Size Small Stool Color Brown Stool Consistency Soft Formed Loose # of times incontinent of 1 Bowels - General Appearance General appearance: appears started age, chronically ill, frail EENT: mucous membranes moist Neck: JVD Respiratory: rales Cardiology: no rub, regular rate, regular rhythm Gastrointestinal: no tenderness, no guarding Integumentary: ecchymotic Neurologic: alert and oriented x3 Musculoskeletal: no cyanosis, no clubbing Psychiatric: mood/affect appropriate - Lab 09/15/17 04:38 09/17/17 07:23 Most recent lab results Calcium 9.4 mg/dl (8.6-10.4) 09/17/17 07:23 Phosphorus 3.2 mg/dL (2.7-4.5) 09/16/17 09:50 Magnesium 1.7 mg/dL (1.6-2.5) 09/16/17 09:50 Assessment and Plan (1) ESRD (end stage renal disease) on dialysis HD today for 4 hrs using revaclear dialyser, 300qb, 800ml/min dialysate flow, 2k /2.5cA DIALYSATE, 2-2.5l uf Patient has shown increase in systolic BP of 10 points with occlusion of her AVF , given her significant issues and recurrent hospitalisation for hypotension will plan on ligation of AVF and obtain a tunneled cathetor mainly as a lifesaving measure given significant decline in her health Hypotension: chronic, worse given acute issues A line shows 10 point difference in systolic BP ct midodrine to 15mg tid prednisone added empirically as had good response to this in the past low albumin: patient encouraged to try and eat on nepro/protein supplement as well Knee abscess: improving slowly with local wound care, followed by wound care team C diff: on antibiotics Patient has overall very poor prognosis she has refused hospice on multiple occasions I have tried to address this with her She understands if her BP does not improve with ligation of AVF she may need to go comfort care as unable to dialysis as outpt, unable to achieve any UF will monitor closely for now given patient wishes Will follow along Appreciate hospitalist help in managing this patient Status: Chronic Priority: Medium (2) Peripheral edema Status: Chronic Comment: must consider diastolic dysfunction with right heart failure and pulmonary HTN CONTRIBUTING causes
[2017-09-17] MEDS: traZODone HCL 50 MG TABLET PO SCH (21:09)
[2017-09-17] MEDS: SENNOSIDES 1 TABLET PO SCH (21:10)
[2017-09-17] MEDS: ACETAMINOPHEN 325 MG TABLET PO PRN (21:10)
[2017-09-17] MEDS: traMADol HCL/ACETAMINOPHEN 1 TAB TABLET PO PRN (22:58)
[2017-09-18] MEDS: INSULIN LISPRO 1 UNIT/0.01 ML UNIT SQ SCH ×4 (01:14→18:19)
[2017-09-18] MEDS: 0.9 % SODIUM CHLORIDE 10 ML SYRINGE IV SCH ×5 (05:21→21:57)
[2017-09-18] MEDS: metroNIDAZOLE 500 MG/100 ML BAG IV SCH ×3 (05:23→21:57)
[2017-09-18] MEDS ORDERED: PANTOPRAZOLE 40 MG PACKET PO SCH (07:30)
[2017-09-18] MEDS: HEPARIN 5,000 UNIT/ML VIAL SQ SCH ×2 (08:24→21:55)
[2017-09-18] MEDS: traMADol HCL/ACETAMINOPHEN 1 TAB TABLET PO PRN ×2 (08:24→19:26)
[2017-09-18] MEDS: VANCOMYCIN ORAL SOL 1,000 MG/10 ML BOTTLE PO SCH ×4 (08:25→21:54)
[2017-09-18] MEDS: SEVELAMER 800 MG TABLET PO SCH ×4 (08:25→17:11)
[2017-09-18] MEDS: predniSONE 20 MG TABLET PO SCH (08:25)
[2017-09-18] MEDS: MIDODRINE 5 MG TABLET PO SCH ×3 (08:25→16:25)
[2017-09-18] MEDS: ARIPIPRAZOLE 2 MG PO SCH (08:25)
[2017-09-18] MEDS: FLUoxetine HCL 20 MG CAPSULE PO SCH (08:25)
[2017-09-18] MEDS: CYANOCOBALAMIN (VITAMIN B-12) 500 MCG TABLET PO SCH (08:25)
[2017-09-18] MEDS: GENTAMICIN SULFATE 40 MG, CLINDAMYCIN 300 MG, BACITRACIN 25,000 UNIT in SODIUM CHLORIDE... IRR SCH ×2 (08:26→21:58)
[2017-09-18] MEDS: BUDESONIDE 0.5 MG/2 ML AMPUL.NEB NEB SCH ×2 (10:23→20:22)
--- NOTE | 2017-09-18 16:02 | Nephrology Progress Note ---
Subjective Patient information: Note initiated : 09/18/17 at 3:58 pm Service Date, if different from initiated Date: [] Patient: Naz Joseph 72 y/o F admitted on 09/08/17 for Hypotension/Small Bowel Obstruction. Chief Complaint: [] Principal diagnosis: End stage renal disease on chronic hemodialysis Interval history: no overnight events reported BP is in 90/70 range no worsening SOB still has significant edema no other issues main concern is her deconditioning, cannot go to SNF for rehab as ran out of medicare days Pertinent ROS: as above Objective - Vital Signs Vital signs: Vital Signs Temp Pulse Resp BP Pulse Ox 09/18/17 15:56 75 82/69 09/18/17 15:24 97.1 F 71 11 L 98/72 09/18/17 15:01 12 89/62 09/18/17 15:00 16 09/18/17 14:55 15 78/65 09/18/17 14:54 71 78/65 09/18/17 14:30 97.1 F 91 H 103/83 09/18/17 14:01 16 103/83 09/18/17 14:00 17 09/18/17 13:50 97.3 F 76 28 H 87/68 09/18/17 13:01 25 H 09/18/17 13:00 17 83/70 09/18/17 12:57 97.3 F 75 83/70 09/18/17 12:02 24 H 80/63 09/18/17 12:00 97.6 F 66 22 80/63 95 09/18/17 11:02 64 20 09/18/17 11:01 64 25 H 80/58 91 09/18/17 11:00 64 27 H 91 09/18/17 10:23 66 19 09/18/17 10:06 69 22 95 09/18/17 10:05 70 23 H 73/54 95 09/18/17 10:00 68 23 H 85 L 09/18/17 09:00 68 25 H 96 09/18/17 08:01 65 22 90/64 93 09/18/17 08:00 66 25 H 93 09/18/17 07:02 63 18 83 L 09/18/17 07:01 97.8 F 63 19 81/63 99 09/18/17 07:00 63 20 94 09/18/17 06:44 99 09/18/17 06:02 65 14 92 09/18/17 06:01 66 22 86/62 94 09/18/17 05:03 63 20 151/107 98 09/18/17 04:01 20 92/66 09/18/17 03:01 66 21 90/65 96 09/18/17 02:01 66 25 H 79/58 97 09/18/17 01:01 66 28 H 76/48 93 09/18/17 00:01 97.6 F 65 22 76/53 94 09/17/17 23:01 68 23 H 71/56 95 09/17/17 22:01 63 20 73/52 95 09/17/17 21:23 98.2 F 65 19 82/56 93 09/17/17 20:24 68 22 09/17/17 19:01 73 25 H 92/77 93 09/17/17 18:31 73 21 71/55 92 09/17/17 18:01 72 18 76/59 94 09/17/17 18:00 70 22 95 09/17/17 17:34 67 23 H 96 09/17/17 17:33 67 24 H 95 09/17/17 17:10 97.3 F 76 91/68 09/17/17 17:01 66 23 H 92/68 97 09/17/17 17:00 66 28 H 95 09/17/17 16:50 65 27 H 91/68 100 09/17/17 16:31 26 H 92/67 09/17/17 16:25 97.3 F 68 93/56 09/17/17 16:22 58 L 24 H 93/56 99 09/17/17 16:01 64 25 H 99/71 100 09/17/17 16:00 63 22 100 Intake and Output 09/18/17 09/18/17 09/18/17 05:59 13:59 21:59 Intake Total 100 / 100 340 / 340 Balance 100 / 100 340 / 340 Intake: IV 100 / 100 100 / 100 Oral 240 / 240 Other: Meal Breakfast Percent of Meal Consumed 100% Feeding Ability Assist with Tray Set Up # Bowel Movements 1 # of times incontinent of 1 Bowels Intake & Output: Intake & Output 09/18/17 09/18/17 09/18/17 05:59 13:59 21:59 Intake Total 100 / 100 340 / 340 Balance 100 / 100 340 / 340 Intake: IV 100 / 100 100 / 100 Oral 240 / 240 Other: Meal Breakfast Percent of Meal Consumed 100% Feeding Ability Assist with Tray Set Up # Bowel Movements 1 # of times incontinent of 1 Bowels - General Appearance General appearance: appears started age, chronically ill, frail EENT: mucous membranes moist Neck: no JVD Cardiology: no rub, edema, regular rate, regular rhythm Gastrointestinal: no tenderness, no guarding Integumentary: warm and dry, ecchymotic Neurologic: alert and oriented x3 Musculoskeletal: no erythema, no cyanosis Psychiatric: mood/affect appropriate - Lab 09/15/17 04:38 09/17/17 07:23 Most recent lab results Calcium 9.4 mg/dl (8.6-10.4) 09/17/17 07:23 Phosphorus 3.2 mg/dL (2.7-4.5) 09/16/17 09:50 Magnesium 1.7 mg/dL (1.6-2.5) 09/16/17 09:50 Assessment and Plan (1) ESRD (end stage renal disease) on dialysis PUF treatment today for 3.5 hrs using revaclear dialyser, UF goal of 2-3L as tolerated fluid restriction to one litre/day or less Hypotension: chronic, worse given acute issues A line shows 10 point difference in systolic BP ct midodrine to 15mg tid prednisone added empirically as had good response to this in the past, ? has AI low albumin: patient encouraged to try and eat on nepro/protein supplement as well Knee abscess: improving slowly with local wound care, followed by wound care team C diff: on antibiotics Patient has overall very poor prognosis she has refused hospice on multiple occasions I have tried to address this with her She understands if her BP does not improve with ligation of AVF she may need to go comfort care as unable to dialysis as outpt, unable to achieve any UF will monitor closely for now given patient wishes Will follow along CONSIDER TRANSFER TO floor as BP back to baseline, would recommend PT twice a day while in ospital AVF ligation planned for next week in an attempt to increase her systolic BP as we get 10 point increase in her systolic BP on occluding AVF Appreciate hospitalist help in managing this patient Status: Chronic Priority: Medium (2) Peripheral edema Status: Chronic Comment: must consider diastolic dysfunction with right heart failure and pulmonary HTN CONTRIBUTING causes
[2017-09-18] MEDS ORDERED: ONDANSETRON 4 MG/2 ML VIAL IV PRN (17:05)
[2017-09-18] MEDS ORDERED: ACETAMINOPHEN 325 MG TABLET PO PRN (17:05)
[2017-09-18] MEDS ORDERED: DEXTROSE 50% 50 ML VIAL IV PRN (17:05)
[2017-09-18] MEDS ORDERED: ACETAMINOPHEN 1,000 MG/100 ML BOTTLE IV PRN (17:05)
[2017-09-18] MEDS ORDERED: PROMETHAZINE 25 MG/ML VIAL IV PRN (17:05)
[2017-09-18] MEDS ORDERED: COLLAGENASE TOP OINT TUBE 30GM TOPICAL SCH (21:00)
[2017-09-18] MEDS: traZODone HCL 50 MG TABLET PO SCH (21:55)
[2017-09-18] MEDS: COLLAGENASE TOP OINT TUBE 30GM TOPICAL SCH (21:56)
[2017-09-18] MEDS: SENNOSIDES 1 TABLET PO SCH (21:57)
[2017-09-18] MEDS: LORazepam 0.5 MG TABLET PO PRN (22:48)
[2017-09-19] MEDS: INSULIN LISPRO 1 UNIT/0.01 ML UNIT SQ SCH ×5 (00:01→21:30)
[2017-09-19] MEDS: traMADol HCL/ACETAMINOPHEN 1 TAB TABLET PO PRN ×2 (03:41→13:54)
[2017-09-19] MEDS: 0.9 % SODIUM CHLORIDE 10 ML SYRINGE IV SCH ×5 (05:37→21:56)
[2017-09-19] MEDS: metroNIDAZOLE 500 MG/100 ML BAG IV SCH (05:38)
--- NOTE | 2017-09-19 07:23 | Internal Med Progress Note ---
Medical - PN: Subj Patient information: Note initiated : 09/19/17 at 7:18 am Service Date, if different from initiated Date: [] Patient: Naz Joseph a 72 y/o F admitted on 09/08/17 for Hypotension/Small Bowel Obstruction. Interval history: Ms. Joseph is a 72 year old Female with h/o end-stage renal disease on dialysis follows with Dr. REAGAN, the patient presents to the emergency room after being sent from dialysis to the ER for low blood pressure. According to the patient she has not been well for the last 2 weeks. She has been weak, she fell down reports this as a mechanical fall and injured the right side of the knee. She developed a wound for which she has been followed by the wound care clinic. According to the patient history the swab taken from that wound was growing MRSA, patient is on Bactrim and Keflex for same. The patient has been having ongoing diarrhea for approximately last 1 week liquid watery dark green 4-5 episodes every day, she has been getting weaker and more fatigued. She has had decreased appetite and has not been eating or drinking very well. She also admits to be having some nausea. The patient reports that she is not able to ambulate well and finds it difficult to even get up and move around. She presented for dialysis at which point in time she was noted to have low blood pressures with systolic in 70s, he was therefore sent to the emergency room for further evaluation. The patient also notes that she has subjective sensations of chills and intermittent shakes which have been progressively getting worse over the last weeks. Has any documented fever, has chronic headaches worse now, no dizziness , no changes in vision, has dry mouth no difficulty in swallowing no changes in hearing, no neck swelling or lymphadenopathy no bleeding. She has shortness of breath on exertion which is far worse than her baseline. She denies any chest pain, has nausea no abdominal pain she had diarrhea over the last 1 week. The patient denies any acute joint swelling or joint pain besides the right knee. In the emergency room the patient was afebrile, heart rate 67 blood pressure 78/ 61, saturating 98% on room air, White blood cell count was 8.8 hemoglobin 12.9 platelets 155, sodium 138, potassium 2.9, bicarbonate 29 creatinine 4.6 glucose level was 81. The patient's x-ray of the abdomen showed possible small bowel obstruction, CT scan of the abdomen was done with contrast after consultation with nephrology and was tentatively reported as small bowel obstruction. Dr. Ricketts the general surgeon was consulted from the emergency room. He would be seeing the patient. The patient's right knee had an ulcer with erythema extending on the anterior aspect of the knee, on my exam there was fluctuation likely infected bursitis Given low blood pressure, which remained low despite 2 L of fluid resuscitation possible abscess, small bowel obstruction the patient has been admitted to the ICU for further management. September 09 Patient seen examined, feeling better, on Levophed, patient has no acute complaints, appreciate help from surgery as well as nephrology. X-ray abdomen repeated today. Patient is scheduled for dialysis today. Central line placed yesterday, CVP is elevated at 15-18. Echo ordered. Cdif positive. September 10 On Vanco po for C dif. Liquid diarrhea. Rectal tube in. Still profuse diarrhea. Will add Metronidazole IV Examined knee R with dr Pedraza. Don't think it's infected, or requires systemic antibiotics. Case d/w nephrology (dr Bynum): HD for fluid overload today. Still on Levophed gtt. September 11 HD today. CVP was 20. Was drinking lots of fluid. Now on fluid restriction. Levophed at 10. Still significant stool output, but more formed. Considering placement of femoral a-line, but should wait till C.dif resolved. Will increase Florinef from 0.05 q 48 hr to 0.1 daily September 12 Less stool out put. Tolerating full liquid diet. CVP 15. Levophed 8-10 mcg. HD 2-3 L off. Discussed the many problems with patient. Limited treatment options available if hypotension persists. September 13 Abdominal pain and severe nausea this am. KUB: no evidence of obstruction On Levo 5 mcg/min September 14 Still requiring Levophed 5 - 10 mcg/min to keep MAP 65 Diarrhea resolved. Still on Vanco po and Flagyl IV for C dif colitis. Plan today: arterial fem cath placement September 15 A-line reading about 10 mm Hg higher than cuff Diarrhea resolved Feeling better September 16 Few BMs, soft Required Levophed 2 to keep MAP > 65. Patient states she hasn't been symptomatic with SBPs in 80's. Will discontinued Levo and advance activity to chair BID September 17 Day 8 of Vanco po and Flagyl IV for severe C.dif colitis Is doing better. SBP around 90's off Levophed x 24 hours. For HD today For ligation AV-fistula sometime this week and placement HD catheter. Will hold Plavix ? d/c CVP line September 19: CVP line removed Patient is doing ok. Very weak. Standing up with 2 p assist. No diarrhea, or nausea. Appetite fair. SBP in 90's. HR 80's - Constitutional Vitals: Vital Signs Temp Pulse Resp BP Pulse Ox 97.4 F 63 17 82/62 94 09/19/17 04:14 09/19/17 04:14 09/19/17 04:14 09/19/17 04:14 09/19/17 04:14 Period Temp Pulse Resp BP Sys/Millan Pulse Ox Last 24 Hr 97.1 F-97.6 F 63-104 11-28 73-178/54-158 85-96 Intake and Output 09/18/17 09/19/17 09/19/17 21:59 05:59 13:59 Intake Total 200 / 200 175 / 175 Output Total 2900 / 2900 Balance -2700 / -2700 175 / 175 Weight 182 lb 3.2 oz Intake & Output: Intake & Output 09/18/17 09/19/17 09/19/17 21:59 05:59 13:59 Intake Total 200 / 200 175 / 175 Output Total 2900 / 2900 Balance -2700 / -2700 175 / 175 Weight 182 lb 3.2 oz Intake: IV 100 / 100 Oral 200 / 200 75 / 75 Output: Hemodialysis UF 2900 / 2900 Other: Meal Dinner mixed berries Percent of Meal Consumed 50% 25% Feeding Ability Assist with Tray Set Up Independent Stool Size Moderate Small Stool Color Brown Brown Stool Consistency Soft Soft Loose Loose # of times incontinent of 1 1 Bowels Exam: Chronically ill appearing, but INAD - Respiratory Respiratory exam: Present: normal respiratory exam - Cardiovascular Cardiovascular exam: Present: normal rate and rhythm - GI/Abdominal GI/Abdominal exam: Present: normal bowel sounds - Extremities Exam Extremities exam: Present: pedal edema Additional comments: Upper thighs Medical - PN: Obj Da - Labs CBC & Chem 7: 09/15/17 04:38 09/17/17 07:23 Labs: Abnormal Lab Results 09/17/17 09/16/17 07:23 09:50 Carbon Dioxide 18 L 20 L Anion Gap 19.0 H 17.0 H BUN 35 H 25 H Creatinine 4.7 H 4.0 H Glucose 140 H Albumin 3.0 L Meds: Medications Acetaminophen (Tylenol) 650 mg PO Q4-6HP PRN PRN Reason: PAIN/FEVER > 101 Budesonide (Pulmicort) 0.5 mg NEB Q12 [facility] Last Admin: 09/18/17 20:22 Dose: 0.5 mg Collagenase (Santyl Top Oint) 1 dose TOPICAL BID [facility] Last Admin: 09/18/17 21:56 Dose: 1 applic Cyanocobalamin (Vitamin B-12) 1,000 mcg PO DAILY [facility] Dextrose (Dextrose 50%) 0 ml IV UD PRN PRN Reason: Hypoglycemia Diagnostic Test (Pha) (Accu-Chek) 1 each FS ACHS [facility] Last Admin: 09/18/17 21:54 Dose: 1 each Fluoxetine HCl (Prozac) 40 mg PO DAILY [facility] Heparin Sodium (Porcine) (Heparin) 5,000 unit SQ Q12 [facility] Last Admin: 09/18/17 21:55 Dose: 5,000 unit Gentamicin Sulfate 40 mg/Clindamycin Phosphate 300 mg/Bacitracin 25,000 unit/ Sodium Chloride 503 mls @ 0 mls/hr IRR BID [facility] PRN Reason: As Directed Last Admin: 09/18/17 21:58 Dose: 1 mls/hr Metronidazole (Flagyl) 500 mg in 100 mls @ 100 mls/hr IV Q8H [facility] Last Admin: 09/19/17 05:38 Dose: 100 mls/hr Acetaminophen (Ofirmev) 1,000 mg in 100 mls @ 200 mls/hr IV Q6HP PRN PRN Reason: PAIN/FEVER > 101 Insulin Human Lispro (Humalog) 0 unit SQ Q6 [facility] PRN Reason: Protocol Last Admin: 09/19/17 05:39 Dose: Not Given Lorazepam (Ativan) 0.5 mg PO Q4HP PRN PRN Reason: ANXIETY/SEDATION Last Admin: 09/18/17 22:48 Dose: 0.5 mg Midodrine (Midodrine Hcl) 15 mg PO TID@0800,1200,1700 [facility] Aripiprazole [ Aripiprazole] 2 Mg Tablet 2 mg PO QDAY [facility] Ondansetron HCl (Zofran) 4 mg IV Q4-6HP PRN PRN Reason: Nausea And Vomiting Pantoprazole Sodium (Protonix) [facility] Prednisone (Prednisone) 40 mg PO QAC [facility] Promethazine HCl (Phenergan) 12.5 mg IV Q6-8HP PRN PRN Reason: Nausea And Vomiting Senna (Senokot) 1 tab PO [facility] Last Admin: 09/18/17 21:57 Dose: Not Given Sevelamer Carbonate (Renvela) 800 mg PO TIDAC [facility] Last Admin: 09/18/17 17:11 Dose: Not Given Sodium Chloride (Saline Flush) 10 ml IV Q8 [facility] Last Admin: 09/19/17 05:37 Dose: 10 ml Sodium Chloride (Saline Flush) 10 ml IV Q12 [facility] Last Admin: 09/18/17 21:57 Dose: Not Given Tramadol/Acetaminophen (Ultracet) 1 tab PO Q8HP PRN PRN Reason: Pain Last Admin: 09/19/17 03:41 Dose: 1 tab Trazodone HCl (Desyrel) 250 mg PO [facility] Last Admin: 09/18/17 21:55 Dose: 250 mg Vancomycin HCl (Vancomycin Oral Lizy) 125 mg PO QID [facility] Last Admin: 09/18/17 21:54 Dose: 125 mg Medical - PN: A/P - Time Spent With Patient Total time spent is greater than 50% in coordination of care (as documented) at patient's floor/unit and/or counseling patient: - Narrative A/P Narrative: + Hypotension : despite 2 L fluids, likely from dehydration and infection, treat underlying infection, IV fluids, central line placed. Usually takes midodrine at home, but this time despite 2 doses, bp remained low. No evidence of sepsis, but has C.dif colitis. On Vanco po and Flagyl IV since . No blood cultures were obtained on admissions. On Midodrine and Florinef. Dose Florinef increased 09/11 to 0.1 mg daily 09/14 femoral artery cath placement: SBP about 10 mg higher than cuff. Removed after few hours IV steroids x 1 given 09/14 empirically. Pt feeling better On Prednisone 40 mg daily + Small bowel obstruction? More likely C.dif colitis. Appreciate dr Ricketts's help. No obstruction. Symptoms resolving + Diarrhea: positive for C dif toxin. Vanco po Flagyl IV 09/09. Diarrhea resolved 09/14. Day 11 (09/19): will d/c IV flagyl. Finish Vanco total 14 days thru 09/23 + Right knee bursitis/ Open wound: Possibly infected bursits vs hematoma vs reactionary swelling , get X Ray of the knee is reported negative. Wound inspection done with dr Pedraza 09/10. No indication for systemic antibiotics. Vanco IV discontinued. Local antibiotics. + Wound, Knee/ elbow. MRSA pos. Most likely colonization vs infection. + Hypokalemia: replace K as needed + ESRD on HD, followed by Dr Reagan. + COPD: No wheezing on exam to continue bronchodilators, neg cxr for pna + Fibromyalgia/ Chr pain: On usual meds + CAD no chest pain, on plavix Hold Plavix 09/17, for upcoming HD placement after AVfistula ligation DVT hep sq DNR code status. Procedures - Arterial Line Size (Gauge): 20
[2017-09-19] MEDS: HEPARIN 5,000 UNIT/ML VIAL SQ SCH ×2 (08:46→21:46)
[2017-09-19] MEDS: MIDODRINE 5 MG TABLET PO SCH ×3 (08:46→17:36)
[2017-09-19] MEDS: SEVELAMER 800 MG TABLET PO SCH ×3 (08:46→17:36)
[2017-09-19] MEDS: CYANOCOBALAMIN (VITAMIN B-12) 500 MCG TABLET PO SCH (08:46)
[2017-09-19] MEDS: ARIPIPRAZOLE 2 MG PO SCH (08:46)
[2017-09-19] MEDS: FLUoxetine HCL 20 MG CAPSULE PO SCH (08:47)
[2017-09-19] MEDS: VANCOMYCIN ORAL SOL 1,000 MG/10 ML BOTTLE PO SCH ×4 (08:47→21:52)
[2017-09-19] MEDS: PANTOPRAZOLE 40 MG PACKET PO SCH (08:47)
[2017-09-19] MEDS: predniSONE 20 MG TABLET PO SCH (08:47)
[2017-09-19] MEDS: GENTAMICIN SULFATE 40 MG, CLINDAMYCIN 300 MG, BACITRACIN 25,000 UNIT in SODIUM CHLORIDE... IRR SCH ×2 (08:49→20:15)
[2017-09-19] MEDS: COLLAGENASE TOP OINT TUBE 30GM TOPICAL SCH ×2 (08:49→20:15)
[2017-09-19] MEDS: BUDESONIDE 0.5 MG/2 ML AMPUL.NEB NEB SCH ×3 (09:20→23:39)
[2017-09-19] MEDS: SENNOSIDES 1 TABLET PO SCH (21:45)
[2017-09-19] MEDS: traZODone HCL 50 MG TABLET PO SCH (21:46)
[2017-09-20] MEDS: INSULIN LISPRO 1 UNIT/0.01 ML UNIT SQ SCH ×5 (00:25→21:48)
[2017-09-20] MEDS: 0.9 % SODIUM CHLORIDE 10 ML SYRINGE IV SCH ×7 (04:37→21:49)
[2017-09-20] MEDS: traMADol HCL/ACETAMINOPHEN 1 TAB TABLET PO PRN ×2 (04:48→23:59)
[2017-09-20 05:59] LABS: Basophils # (Auto) 0 K/mcL (0.0-0.3); Basophils % (Auto) 0.1 % (0.0-2.0); Eosinophils # (Auto) 0.4 K/mcL (0.0-0.7); Granulocytes % (Auto) 76.5 % (38.0-78.0); Lymphocytes # (Auto) 1.6 K/mcL (1.5-4.8); Lymphocytes % (Auto) 12.8 % (15.5-49.0); Mean Cell Volume 113.3 fL (80.0-100.0); Mean Corpuscular HGB Conc 32.5 g/dL (31.0-36.0); Mean Corpuscular Hemoglobin 36.8 pg (26.0-34.0); Monocytes % (Auto) 7.6 % (1.0-12.0); Platelet Count 225 K/mcL (140-440); RBC 3.49 M/mcL (4.00-5.20); Red Cell Distribution Width 20.1 % (11.5-14.5)
[2017-09-20 06:46] LABS: ALT/SGPT 46 U/l (0-40); Albumin 3.4 gm/dL (3.2-5.2); Albumin/Globulin Ratio 1.1 (1.0-2.3); Alkaline Phosphatase 81 U/L (39-117); Bilirubin,Direct < 0.2 mg/dL (0.0-0.3); Blood Urea Nitrogen 41 mg/dl (8-23); Gamma Glutamyl Transpeptidase 44 U/L (5-36); Uric Acid 6.3 mg/dL (2.5-8.0)
[2017-09-20] MEDS: PANTOPRAZOLE 40 MG PACKET PO SCH (07:42)
[2017-09-20] MEDS: SEVELAMER 800 MG TABLET PO SCH ×3 (07:42→17:13)
[2017-09-20] MEDS: BUDESONIDE 0.5 MG/2 ML AMPUL.NEB NEB SCH ×2 (09:35→20:12)
[2017-09-20] MEDS: VANCOMYCIN ORAL SOL 1,000 MG/10 ML BOTTLE PO SCH ×5 (10:31→21:37)
[2017-09-20] MEDS: ARIPIPRAZOLE 2 MG PO SCH (10:32)
[2017-09-20] MEDS: MIDODRINE 5 MG TABLET PO SCH ×3 (10:32→17:13)
[2017-09-20] MEDS: CYANOCOBALAMIN (VITAMIN B-12) 500 MCG TABLET PO SCH (10:33)
[2017-09-20] MEDS: predniSONE 20 MG TABLET PO SCH (10:34)
[2017-09-20] MEDS: FLUoxetine HCL 20 MG CAPSULE PO SCH (10:34)
[2017-09-20] MEDS: HEPARIN 5,000 UNIT/ML VIAL SQ SCH ×2 (10:34→21:47)
[2017-09-20] MEDS: GENTAMICIN SULFATE 40 MG, CLINDAMYCIN 300 MG, BACITRACIN 25,000 UNIT in SODIUM CHLORIDE... IRR SCH ×2 (10:34→21:49)
[2017-09-20] MEDS: COLLAGENASE TOP OINT TUBE 30GM TOPICAL SCH ×2 (10:36→21:48)
--- NOTE | 2017-09-20 11:31 | Internal Med Progress Note ---
Medical - PN: Subj Patient information: Note initiated : 09/20/17 at 11:28 am Service Date, if different from initiated Date: [] Patient: Naz Joseph a 72 y/o F admitted on 09/08/17 for Hypotension/Small Bowel Obstruction. Chief Complaint: [] Interval history: Ms. Joseph is a 72 year old Female with h/o end-stage renal disease on dialysis follows with Dr. REAGAN, the patient presents to the emergency room after being sent from dialysis to the ER for low blood pressure. According to the patient she has not been well for the last 2 weeks. She has been weak, she fell down reports this as a mechanical fall and injured the right side of the knee. She developed a wound for which she has been followed by the wound care clinic. According to the patient history the swab taken from that wound was growing MRSA, patient is on Bactrim and Keflex for same. The patient has been having ongoing diarrhea for approximately last 1 week liquid watery dark green 4-5 episodes every day, she has been getting weaker and more fatigued. She has had decreased appetite and has not been eating or drinking very well. She also admits to be having some nausea. The patient reports that she is not able to ambulate well and finds it difficult to even get up and move around. She presented for dialysis at which point in time she was noted to have low blood pressures with systolic in 70s, he was therefore sent to the emergency room for further evaluation. The patient also notes that she has subjective sensations of chills and intermittent shakes which have been progressively getting worse over the last weeks. Has any documented fever, has chronic headaches worse now, no dizziness , no changes in vision, has dry mouth no difficulty in swallowing no changes in hearing, no neck swelling or lymphadenopathy no bleeding. She has shortness of breath on exertion which is far worse than her baseline. She denies any chest pain, has nausea no abdominal pain she had diarrhea over the last 1 week. The patient denies any acute joint swelling or joint pain besides the right knee. In the emergency room the patient was afebrile, heart rate 67 blood pressure 78/ 61, saturating 98% on room air, White blood cell count was 8.8 hemoglobin 12.9 platelets 155, sodium 138, potassium 2.9, bicarbonate 29 creatinine 4.6 glucose level was 81. The patient's x-ray of the abdomen showed possible small bowel obstruction, CT scan of the abdomen was done with contrast after consultation with nephrology and was tentatively reported as small bowel obstruction. Dr. Ricketts the general surgeon was consulted from the emergency room. He would be seeing the patient. The patient's right knee had an ulcer with erythema extending on the anterior aspect of the knee, on my exam there was fluctuation likely infected bursitis Given low blood pressure, which remained low despite 2 L of fluid resuscitation possible abscess, small bowel obstruction the patient has been admitted to the ICU for further management. September 09 Patient seen examined, feeling better, on Levophed, patient has no acute complaints, appreciate help from surgery as well as nephrology. X-ray abdomen repeated today. Patient is scheduled for dialysis today. Central line placed yesterday, CVP is elevated at 15-18. Echo ordered. Cdif positive. September 10 On Vanco po for C dif. Liquid diarrhea. Rectal tube in. Still profuse diarrhea. Will add Metronidazole IV Examined knee R with dr Pedraza. Don't think it's infected, or requires systemic antibiotics. Case d/w nephrology (dr Bynum): HD for fluid overload today. Still on Levophed gtt. September 11 HD today. CVP was 20. Was drinking lots of fluid. Now on fluid restriction. Levophed at 10. Still significant stool output, but more formed. Considering placement of femoral a-line, but should wait till C.dif resolved. Will increase Florinef from 0.05 q 48 hr to 0.1 daily September 12 Less stool out put. Tolerating full liquid diet. CVP 15. Levophed 8-10 mcg. HD 2-3 L off. Discussed the many problems with patient. Limited treatment options available if hypotension persists. September 13 Abdominal pain and severe nausea this am. KUB: no evidence of obstruction On Levo 5 mcg/min September 14 Still requiring Levophed 5 - 10 mcg/min to keep MAP 65 Diarrhea resolved. Still on Vanco po and Flagyl IV for C dif colitis. Plan today: arterial fem cath placement September 15 A-line reading about 10 mm Hg higher than cuff Diarrhea resolved Feeling better September 16 Few BMs, soft Required Levophed 2 to keep MAP > 65. Patient states she hasn't been symptomatic with SBPs in 80's. Will discontinued Levo and advance activity to chair BID September 17 Day 8 of Vanco po and Flagyl IV for severe C.dif colitis Is doing better. SBP around 90's off Levophed x 24 hours. For HD today For ligation AV-fistula sometime this week and placement HD catheter. Will hold Plavix ? d/c CVP line September 19: CVP line removed Patient is doing ok. Very weak. Standing up with 2 p assist. No diarrhea, or nausea. Appetite fair. SBP in 90's. HR 80's September 20 Seen and examined, no acute overnight events, patient still very weak needing 2 people assist. She still has loose bowel movements. Times a day but no acute diarrhea. She denies any chest pain shortness of breath nausea vomiting. Her appetite is good. Labs show slight worsening of leukocytosis, patient is on steroids, also has C. difficile. Will increase the dose of vancomycin from 125 to 250mg 4 times daily. Will treat for at least 1 week after resolution of diarrhea. Clinically the patient feels well. Pertinent ROS: Denies headache, dizziness Denies chest pain, palpitations Denies cough or shortness of breath Denies abdominal pain, nausea or vomiting. - Constitutional Vitals: Vital Signs Temp Pulse Resp BP Pulse Ox 97.0 F 71 13 101/68 96 09/20/17 07:02 09/20/17 09:36 09/20/17 09:36 09/20/17 07:02 09/20/17 04:00 Period Temp Pulse Resp BP Sys/Millan Pulse Ox Last 24 Hr 96.2 F-98.0 F 61-71 13-24 91-116/64-78 94-97 Intake and Output 09/19/17 09/20/17 09/20/17 21:59 05:59 13:59 Intake Total 220 / 220 270 / 270 60 / 60 Balance 220 / 220 270 / 270 60 / 60 Weight 187 lb Intake & Output: Intake & Output 09/19/17 09/20/17 09/20/17 21:59 05:59 13:59 Intake Total 220 / 220 270 / 270 60 / 60 Balance 220 / 220 270 / 270 60 / 60 Weight 187 lb Intake: IV 100 / 100 Oral 120 / 120 270 / 270 60 / 60 Other: Stool Size Moderate Stool Color Brown Stool Consistency Loose # of times incontinent of 1 Bowels Exam: Constitutional; Afebrile, cooperative, alert, not in distress. Eyes- No icterus, , No periorbital swelling Ears- Ext ear normal, hearing normal to conversation. Neck- Midline trachea, supple Respiratory system: Air Entry equal on both sides, No crackles or wheezing, no rhonchi. CVS- Rate rhythm regular, S1,S2 heard, no gallop, no rub. Abdomen- Soft nontender abdomen, no organomegaly, no tenderness, no guarding or rigidity, [employer]- AOOx3, moving all extremities, no gross focal deficit noted. Medical - PN: Obj Da - Labs CBC & Chem 7: 09/20/17 04:10 09/20/17 04:10 Labs: Abnormal Lab Results 09/20/17 09/20/17 04:10 04:10 WBC 12.8 H RBC 3.49 L MCV 113.3 H MCH 36.8 H RDW 20.1 H MPV 11.4 H Lymph % (Auto) 12.8 L Gran # 9.8 H [place] # (Auto) 1.0 H Chloride 94 L Carbon Dioxide 17 L Anion Gap 25.0 H BUN 41 H Creatinine 5.0 H Glucose 146 H GGT 44 H AST 108 H ALT 46 H Lactate Dehydrogenase 337 H Meds: Medications Acetaminophen (Tylenol) 650 mg PO Q4-6HP PRN PRN Reason: PAIN/FEVER > 101 Budesonide (Pulmicort) 0.5 mg NEB Q12 [facility] Last Admin: 09/20/17 09:35 Dose: 0.5 mg Collagenase (Santyl Top Oint) 1 dose TOPICAL BID [facility] Last Admin: 09/20/17 10:36 Dose: 1 applic Cyanocobalamin (Vitamin B-12) 1,000 mcg PO DAILY [facility] Last Admin: 09/20/17 10:33 Dose: 1,000 mcg Dextrose (Dextrose 50%) 0 ml IV UD PRN PRN Reason: Hypoglycemia Diagnostic Test (Pha) (Accu-Chek) 1 each FS ACHS [facility] Last Admin: 09/20/17 07:44 Dose: 1 each Fluoxetine HCl (Prozac) 40 mg PO DAILY [facility] Last Admin: 09/20/17 10:34 Dose: 40 mg Heparin Sodium (Porcine) (Heparin) 5,000 unit SQ Q12 [facility] Last Admin: 09/20/17 10:34 Dose: 5,000 unit Gentamicin Sulfate 40 mg/Clindamycin Phosphate 300 mg/Bacitracin 25,000 unit/ Sodium Chloride 503 mls @ 0 mls/hr IRR BID [facility] PRN Reason: As Directed Last Admin: 09/20/17 10:34 Dose: 1 mls/hr Acetaminophen (Ofirmev) 1,000 mg in 100 mls @ 200 mls/hr IV Q6HP PRN PRN Reason: PAIN/FEVER > 101 Last Infusion: 09/19/17 20:08 Dose: Infused Insulin Human Lispro (Humalog) 0 unit SQ ACHS [facility] PRN Reason: Protocol Last Admin: 09/20/17 07:44 Dose: Not Given Lactobacillus Rhamnosus (Culturelle) 1 cap PO BID [facility] Lorazepam (Ativan) 0.5 mg PO Q4HP PRN PRN Reason: ANXIETY/SEDATION Last Admin: 09/18/17 22:48 Dose: 0.5 mg Midodrine (Midodrine Hcl) 15 mg PO TID@0800,1200,1700 [facility] Last Admin: 09/20/17 10:32 Dose: 15 mg Aripiprazole [ Aripiprazole] 2 Mg Tablet 2 mg PO QDAY [facility] Last Admin: 09/20/17 10:32 Dose: 2 mg Ondansetron HCl (Zofran) 4 mg IV Q4-6HP PRN PRN Reason: Nausea And Vomiting Pantoprazole Sodium (Protonix) 40 mg PO QAMAC [facility] Last Admin: 09/20/17 07:42 Dose: 40 mg Prednisone (Prednisone) 40 mg PO QAMCC [facility] Last Admin: 09/20/17 10:34 Dose: 40 mg Promethazine HCl (Phenergan) 12.5 mg IV Q6-8HP PRN PRN Reason: Nausea And Vomiting Senna (Senokot) 1 tab PO HS [facility] Last Admin: 09/19/17 21:45 Dose: Not Given Sevelamer Carbonate (Renvela) 800 mg PO TIDAC [facility] Last Admin: 09/20/17 07:42 Dose: 800 mg Sodium Chloride (Saline Flush) 10 ml IV Q8 [facility] Last Admin: 09/20/17 10:35 Dose: 10 ml Sodium Chloride (Saline Flush) 10 ml IV Q12 [facility] Last Admin: 09/20/17 10:35 Dose: Not Given Tramadol/Acetaminophen (Ultracet) 1 tab PO Q8HP PRN PRN Reason: Pain Last Admin: 09/20/17 04:48 Dose: 1 tab Trazodone HCl (Desyrel) 250 mg PO HS [facility] Last Admin: 09/19/17 21:46 Dose: 250 mg Vancomycin HCl (Vancomycin Oral Lizy) 250 mg PO QID [facility] Last Admin: 09/20/17 10:31 Dose: 250 mg Medical - PN: A/P - Time Spent With Patient Total time spent is greater than 50% in coordination of care (as documented) at patient's floor/unit and/or counseling patient: - Narrative A/P Narrative: A/P A/P Hypotension : multifactorial, due to infection, volume depletion vs related to ESRD stats/ endocrine abnormality Continue on Midodrine, on prednisone for now, off Florinef. 09/14 femoral artery cath placement: SBP about 10 mg higher than cuff. Removed after few hours IV steroids x 1 given 09/14 empirically. Pt feeling better On Prednisone 40 mg daily + Small bowel obstruction? More likely C.dif colitis. Appreciate dr Ricketts's help. No obstruction. Symptoms resolving + Diarrhea: positive for C dif toxin. Vanco po Flagyl IV 09/09. Diarrhea resolved 09/14. Day 11 (09/19): will d/c IV flagyl. Dose of vancomycin increased to 250 on 09/20, continue po vancomycin 1 week post resolution of loose stools + Right knee bursitis/ Open wound: Possibly infected bursits vs hematoma vs reactionary swelling , get X Ray of the knee is reported negative. Wound inspection done with dr Pedraza 09/10. No indication for systemic antibiotics. Vanco IV discontinued. Local antibiotics. + Wound, Knee/ elbow. MRSA pos. Most likely colonization vs infection. + Hypokalemia: replace K as needed + ESRD on HD, followed by Dr Reagan. + COPD: No wheezing on exam to continue bronchodilators, neg cxr for pna + Fibromyalgia/ Chr pain: On usual meds + CAD no chest pain, on plavix Hold Plavix 09/17, for upcoming HD placement after AVfistula ligation DVT hep sq DNR code status. Procedures - Arterial Line Size (Gauge): 20
--- NOTE | 2017-09-20 16:49 | Nephrology Progress Note ---
Subjective Patient information: Note initiated : 09/20/17 at 4:47 pm Service Date, if different from initiated Date: [] Patient: Naz Joseph 72 y/o F admitted on 09/08/17 for Hypotension/Small Bowel Obstruction. Chief Complaint: [] Principal diagnosis: End stage renal disease on chronic hemodialysis Interval history: Seen this am no new issues feels better no worsening SOB, CP edema stable still significant in thighs and sacral area continues to have significant LE weakness Pertinent ROS: as above Objective - Vital Signs Vital signs: Vital Signs Temp Pulse Resp BP Pulse Ox 09/20/17 15:44 96.7 F L 61 120/65 09/20/17 15:31 73 109/65 09/20/17 15:17 74 99/54 09/20/17 15:03 70 85/52 09/20/17 14:50 60 93/48 09/20/17 14:32 78 112/67 09/20/17 14:16 61 96/81 09/20/17 14:01 61 117/79 09/20/17 13:46 58 L 96/50 09/20/17 13:31 61 84/64 09/20/17 13:16 54 L 99/74 09/20/17 13:02 66 105/47 09/20/17 12:46 54 L 102/58 09/20/17 12:31 62 102/51 09/20/17 12:18 68 104/55 09/20/17 12:10 78 100/56 09/20/17 11:52 97.5 F 60 104/40 09/20/17 09:36 71 13 09/20/17 07:40 95 09/20/17 07:02 97.0 F 65 22 101/68 09/20/17 04:00 96.2 F L 68 24 H 99/68 96 09/20/17 00:00 96.5 F L 67 24 H 116/78 96 09/19/17 23:55 66 18 09/19/17 23:42 96.3 F L 68 18 94 09/19/17 20:00 97.3 F 64 24 H 92/66 96 Intake and Output 09/20/17 09/20/17 09/20/17 05:59 13:59 21:59 Intake Total 270 / 270 180 / 180 Output Total 2600 / 2600 Balance 270 / 270 180 / 180 -2600 / -2600 Intake: Oral 270 / 270 180 / 180 Output: Hemodialysis UF 2600 / 2600 Other: Stool Size Moderate Moderate Stool Color Brown Brown Green Stool Consistency Loose Loose # of times incontinent of 1 Bowels Intake & Output: Intake & Output 09/20/17 09/20/17 09/20/17 05:59 13:59 21:59 Intake Total 270 / 270 180 / 180 Output Total 2600 / 2600 Balance 270 / 270 180 / 180 -2600 / -2600 Intake: Oral 270 / 270 180 / 180 Output: Hemodialysis UF 2600 / 2600 Other: Stool Size Moderate Moderate Stool Color Brown Brown Green Stool Consistency Loose Loose # of times incontinent of 1 Bowels - General Appearance General appearance: appears started age EENT: mucous membranes moist Neck: JVD Respiratory: rales Cardiology: no rub, edema, regular rate, regular rhythm Gastrointestinal: no tenderness, no guarding Integumentary: ecchymotic, skin tear Neurologic: alert and oriented x3 Musculoskeletal: no cyanosis Psychiatric: mood/affect appropriate - Lab 09/20/17 04:10 09/20/17 04:10 Most recent lab results Calcium 9.6 mg/dl (8.6-10.4) 09/20/17 04:10 Phosphorus 3.7 mg/dL (2.7-4.5) 09/20/17 04:10 Magnesium 1.9 mg/dL (1.6-2.5) 09/20/17 04:10 Assessment and Plan (1) ESRD (end stage renal disease) on dialysis HD today for 4 hrs using revaclear dialyser 2k/2.5ca dialysate, uf goal of 2-3 L as tolerated puf treatment tomorrow again Hypotension: chronic, worse given acute issues A line shows 10 point difference in systolic BP ct midodrine to 15mg tid prednisone added empirically as had good response to this in the past, ? has AI low albumin: patient encouraged to try and eat on nepro/protein supplement as well Knee abscess: improving slowly with local wound care, followed by wound care team C diff: on antibiotics Patient has overall very poor prognosis she has refused hospice on multiple occasions I have tried to address this with her She understands if her BP does not improve with ligation of AVF she may need to go comfort care as unable to dialysis as outpt, unable to achieve any UF will monitor closely for now given patient wishes Will follow along AVF ligation planned for next week in an attempt to increase her systolic BP as we get 10 point increase in her systolic BP on occluding AVF Appreciate hospitalist help in managing this patient Status: Chronic Priority: Medium (2) Peripheral edema Status: Chronic Comment: must consider diastolic dysfunction with right heart failure and pulmonary HTN CONTRIBUTING causes
[2017-09-20] MEDS: LACTOBACILLUS 1 CAPSULE PO SCH (21:46)
[2017-09-20] MEDS: traZODone HCL 50 MG TABLET PO SCH (21:46)
[2017-09-20] MEDS: SENNOSIDES 1 TABLET PO SCH (21:47)
[2017-09-21] MEDS: 0.9 % SODIUM CHLORIDE 10 ML SYRINGE IV SCH ×6 (03:19→22:53)
[2017-09-21 06:41] LABS: ALT/SGPT 37 U/l (0-40); Albumin 3.3 gm/dL (3.2-5.2); Albumin/Globulin Ratio 1.1 (1.0-2.3); Alkaline Phosphatase 81 U/L (39-117); Bilirubin,Direct < 0.2 mg/dL (0.0-0.3); Blood Urea Nitrogen 27 mg/dl (8-23); Gamma Glutamyl Transpeptidase 48 U/L (5-36); Uric Acid 4.8 mg/dL (2.5-8.0)
[2017-09-21] MEDS: INSULIN LISPRO 1 UNIT/0.01 ML UNIT SQ SCH ×4 (07:28→21:55)
[2017-09-21] MEDS: MIDODRINE 5 MG TABLET PO SCH ×3 (07:30→17:20)
[2017-09-21] MEDS: PANTOPRAZOLE 40 MG PACKET PO SCH (07:31)
[2017-09-21] MEDS: predniSONE 20 MG TABLET PO SCH (07:31)
[2017-09-21] MEDS: SEVELAMER 800 MG TABLET PO SCH ×3 (07:31→17:20)
[2017-09-21 07:32] LABS: Basophils # (Auto) 0 K/mcL (0.0-0.3); Basophils % (Auto) 0.1 % (0.0-2.0); Eosinophils # (Auto) 0.3 K/mcL (0.0-0.7); Eosinophils % (Auto) 1.7 % (0.0-7.0); Granulocytes % (Auto) 78.3 % (38.0-78.0); Lymphocytes # (Auto) 1.8 K/mcL (1.5-4.8); Lymphocytes % (Auto) 11.2 % (15.5-49.0); Mean Cell Volume 114.7 fL (80.0-100.0); Mean Corpuscular HGB Conc 32.4 g/dL (31.0-36.0); Mean Corpuscular Hemoglobin 37.1 pg (26.0-34.0); Monocytes # (Auto) 1.4 K/mcL (0.1-0.9); Monocytes % (Auto) 8.7 % (1.0-12.0); Platelet Count 222 K/mcL (140-440); RBC 3.58 M/mcL (4.00-5.20); Red Cell Distribution Width 20.7 % (11.5-14.5)
[2017-09-21] MEDS: predniSONE 10 MG TABLET PO SCH (08:31)
--- NOTE | 2017-09-21 08:32 | XRay Report ---
CLINICAL INFORMATION: Elevated white blood cell count COMPARISON: 09/08/2017 FINDINGS: Moderate consolidated infiltrate as developed in the left base with moderate associated pleural effusion. The heart is mildly enlarged. Mediastinum is unremarkable. The pulmonary vessels are mildly distended. Right diaphragm is chronically elevated. IMPRESSION: Moderate sized consolidated left basilar infiltrate with moderate left pleural effusion. Mild underlying CHF Moderate chronic elevation right diaphragm Interpreted and Authenticated by: Fortino Mendoza 09/21/17
[2017-09-21] MEDS: BUDESONIDE 0.5 MG/2 ML AMPUL.NEB NEB SCH ×2 (08:51→20:59)
[2017-09-21] MEDS: ARIPIPRAZOLE 2 MG PO SCH (09:11)
[2017-09-21] MEDS: LACTOBACILLUS 1 CAPSULE PO SCH ×2 (09:24→21:52)
[2017-09-21] MEDS: VANCOMYCIN ORAL SOL 1,000 MG/10 ML BOTTLE PO SCH ×4 (09:24→21:54)
[2017-09-21] MEDS: HEPARIN 5,000 UNIT/ML VIAL SQ SCH ×2 (09:25→21:52)
[2017-09-21] MEDS: CYANOCOBALAMIN (VITAMIN B-12) 500 MCG TABLET PO SCH (09:25)
[2017-09-21] MEDS: FLUoxetine HCL 20 MG CAPSULE PO SCH (09:25)
[2017-09-21] MEDS: GENTAMICIN SULFATE 40 MG, CLINDAMYCIN 300 MG, BACITRACIN 25,000 UNIT in SODIUM CHLORIDE... IRR SCH ×2 (09:27→21:51)
[2017-09-21] MEDS: COLLAGENASE TOP OINT TUBE 30GM TOPICAL SCH ×2 (09:30→22:26)
[2017-09-21] MEDS: PIPERACILLIN SODIUM/TAZOBACTAM 2.25 GM in DEXTROSE 5% IN WATER 50 ML IV SCH ×2 (10:10→22:08)
--- NOTE | 2017-09-21 13:48 | Nephrology Progress Note ---
Subjective Patient information: Note initiated : 09/21/17 at 1:44 pm Service Date, if different from initiated Date: [] Patient: Naz Joseph 72 y/o F admitted on 09/08/17 for Hypotension/Small Bowel Obstruction. Chief Complaint: [] Principal diagnosis: End stage renal disease on chronic hemodialysis Interval history: seen this am feels well no SOB, CP edema getting better still with significant LE weakness CXR done today for elevated wbc count shows left sided pna/pleural effusion Objective - Vital Signs Vital signs: Vital Signs Temp Pulse Pulse Resp BP BP Pulse Ox 09/21/17 12:00 98.2 F 64 22 96/44 97 09/21/17 08:52 76 18 94 09/21/17 04:25 97.8 F 66 18 96/68 97 09/21/17 00:40 96.9 F L 67 16 92/62 95 09/20/17 20:17 96.4 F L 73 18 94/58 96 09/20/17 20:13 70 15 09/20/17 16:55 97.6 F 16 100/58 95 09/20/17 15:44 96.7 F L 61 120/65 09/20/17 15:31 73 109/65 09/20/17 15:17 74 99/54 09/20/17 15:03 70 85/52 09/20/17 14:50 60 93/48 09/20/17 14:32 78 112/67 09/20/17 14:16 61 96/81 09/20/17 14:01 61 117/79 09/20/17 13:46 58 L 96/50 Intake and Output 09/20/17 09/21/17 09/21/17 21:59 05:59 13:59 Intake Total 300 / 300 Output Total 2600 / 2600 Balance -2300 / -2300 Intake: Oral 300 / 300 Output: Hemodialysis UF 2600 / 2600 Other: Meal Dinner Percent of Meal Consumed 100% Stool Size Moderate Moderate Small Stool Color Brown Brown Brown Stool Consistency Loose Soft Soft Loose # Bowel Movements 1 # of times incontinent of 1 1 1 Bowels Weight 182 lb 8 oz 182 lb 8 oz Patient Weight 09/22/17 05:59 Weight 182 lb 8 oz Intake & Output: Intake & Output 04/05/18 04/06/18 04/06/18 21:59 05:59 13:59 Intake Total 300 / 300 Output Total 2600 / 2600 Balance -2300 / -2300 Weight 182 lb 8 oz 182 lb 8 oz Intake: Oral 300 / 300 Output: Hemodialysis UF 2600 / 2600 Other: Meal Dinner Percent of Meal Consumed 100% Stool Size Moderate Moderate Small Stool Color Brown Brown Brown Stool Consistency Loose Soft Soft Loose # Bowel Movements 1 # of times incontinent of 1 1 1 Bowels - General Appearance General appearance: appears started age, frail EENT: mucous membranes moist Neck: no JVD Respiratory: rales Cardiology: edema (in sacral region, thighs), regular rate, regular rhythm Gastrointestinal: no tenderness, no guarding Integumentary: warm and dry Neurologic: alert and oriented x3 Musculoskeletal: no cyanosis, no clubbing Psychiatric: mood/affect appropriate - Lab 09/21/17 04:25 09/21/17 04:25 Most recent lab results Calcium 9.4 mg/dl (8.6-10.4) 09/21/17 04:25 Phosphorus 3.2 mg/dL (2.7-4.5) 09/21/17 04:25 Magnesium 1.8 mg/dL (1.6-2.5) 09/21/17 04:25 Assessment and Plan (1) ESRD (end stage renal disease) on dialysis HD today for 3 hrs using revaclear dialyser 2k/2.5ca dialysate, uf goal of 2- 2.5L as tolerated will plan on dialysis tomorrow Hypotension: chronic, worse given acute issues A line shows 10 point difference in systolic BP ct midodrine to 15mg tid prednisone dose reduced to 10mg will maintain on t his dose low albumin: patient encouraged to try and eat on nepro/protein supplement as well Knee abscess: improving slowly with local wound care, followed by wound care team C diff: on antibiotics pneumonia on zosyn Patient has overall very poor prognosis she has refused hospice on multiple occasions I have tried to address this with her She understands if her BP does not improve with ligation of AVF she may need to go comfort care as unable to dialysis as outpt, unable to achieve any UF will monitor closely for now given patient wishes Will follow along AVF ligation planned for next week in an attempt to increase her systolic BP as we get 10 point increase in her systolic BP on occluding AVF Appreciate hospitalist help in managing this patient Status: Chronic Priority: Medium (2) Peripheral edema Status: Chronic Comment: must consider diastolic dysfunction with right heart failure and pulmonary HTN CONTRIBUTING causes
--- NOTE | 2017-09-21 14:28 | Internal Med Progress Note ---
Medical - PN: Subj Patient information: Note initiated : 09/21/17 at 2:25 pm Service Date, if different from initiated Date: [] Patient: Naz Joseph a 72 y/o F admitted on 09/08/17 for Hypotension/Small Bowel Obstruction. Chief Complaint: [] Interval history: Ms. Joseph is a 72 year old Female with h/o end-stage renal disease on dialysis follows with Dr. REAGAN, the patient presents to the emergency room after being sent from dialysis to the ER for low blood pressure. According to the patient she has not been well for the last 2 weeks. She has been weak, she fell down reports this as a mechanical fall and injured the right side of the knee. She developed a wound for which she has been followed by the wound care clinic. According to the patient history the swab taken from that wound was growing MRSA, patient is on Bactrim and Keflex for same. The patient has been having ongoing diarrhea for approximately last 1 week liquid watery dark green 4-5 episodes every day, she has been getting weaker and more fatigued. She has had decreased appetite and has not been eating or drinking very well. She also admits to be having some nausea. The patient reports that she is not able to ambulate well and finds it difficult to even get up and move around. She presented for dialysis at which point in time she was noted to have low blood pressures with systolic in 70s, he was therefore sent to the emergency room for further evaluation. The patient also notes that she has subjective sensations of chills and intermittent shakes which have been progressively getting worse over the last weeks. Has any documented fever, has chronic headaches worse now, no dizziness , no changes in vision, has dry mouth no difficulty in swallowing no changes in hearing, no neck swelling or lymphadenopathy no bleeding. She has shortness of breath on exertion which is far worse than her baseline. She denies any chest pain, has nausea no abdominal pain she had diarrhea over the last 1 week. The patient denies any acute joint swelling or joint pain besides the right knee. In the emergency room the patient was afebrile, heart rate 67 blood pressure 78/ 61, saturating 98% on room air, White blood cell count was 8.8 hemoglobin 12.9 platelets 155, sodium 138, potassium 2.9, bicarbonate 29 creatinine 4.6 glucose level was 81. The patient's x-ray of the abdomen showed possible small bowel obstruction, CT scan of the abdomen was done with contrast after consultation with nephrology and was tentatively reported as small bowel obstruction. Dr. Ricketts the general surgeon was consulted from the emergency room. He would be seeing the patient. The patient's right knee had an ulcer with erythema extending on the anterior aspect of the knee, on my exam there was fluctuation likely infected bursitis Given low blood pressure, which remained low despite 2 L of fluid resuscitation possible abscess, small bowel obstruction the patient has been admitted to the ICU for further management. September 09 Patient seen examined, feeling better, on Levophed, patient has no acute complaints, appreciate help from surgery as well as nephrology. X-ray abdomen repeated today. Patient is scheduled for dialysis today. Central line placed yesterday, CVP is elevated at 15-18. Echo ordered. Cdif positive. September 10 On Vanco po for C dif. Liquid diarrhea. Rectal tube in. Still profuse diarrhea. Will add Metronidazole IV Examined knee R with dr Pedraza. Don't think it's infected, or requires systemic antibiotics. Case d/w nephrology (dr Bynum): HD for fluid overload today. Still on Levophed gtt. September 11 HD today. CVP was 20. Was drinking lots of fluid. Now on fluid restriction. Levophed at 10. Still significant stool output, but more formed. Considering placement of femoral a-line, but should wait till C.dif resolved. Will increase Florinef from 0.05 q 48 hr to 0.1 daily September 12 Less stool out put. Tolerating full liquid diet. CVP 15. Levophed 8-10 mcg. HD 2-3 L off. Discussed the many problems with patient. Limited treatment options available if hypotension persists. September 13 Abdominal pain and severe nausea this am. KUB: no evidence of obstruction On Levo 5 mcg/min September 14 Still requiring Levophed 5 - 10 mcg/min to keep MAP 65 Diarrhea resolved. Still on Vanco po and Flagyl IV for C dif colitis. Plan today: arterial fem cath placement September 15 A-line reading about 10 mm Hg higher than cuff Diarrhea resolved Feeling better September 16 Few BMs, soft Required Levophed 2 to keep MAP > 65. Patient states she hasn't been symptomatic with SBPs in 80's. Will discontinued Levo and advance activity to chair BID September 17 Day 8 of Vanco po and Flagyl IV for severe C.dif colitis Is doing better. SBP around 90's off Levophed x 24 hours. For HD today For ligation AV-fistula sometime this week and placement HD catheter. Will hold Plavix ? d/c CVP line September 19: CVP line removed Patient is doing ok. Very weak. Standing up with 2 p assist. No diarrhea, or nausea. Appetite fair. SBP in 90's. HR 80's September 20 Seen and examined, no acute overnight events, patient still very weak needing 2 people assist. She still has loose bowel movements. Times a day but no acute diarrhea. She denies any chest pain shortness of breath nausea vomiting. Her appetite is good. Labs show slight worsening of leukocytosis, patient is on steroids, also has C. difficile. Will increase the dose of vancomycin from 125 to 250mg 4 times daily. Will treat for at least 1 week after resolution of diarrhea. Clinically the patient feels well. september 21 She is seen and examined, no acute overnight events, she feels better however still weak requiring help for ambulation. She still has loose bowel movements. No changes since yesterday. She denies any other acute complaints. Leukocytosis is worsening. Chest x-ray done this morning shows new pneumonia on the left side with possible effusion. Patient's blood culture ordered started on IV vancomycin and Zosyn. Overall the patient feels well, denies any chest pain or shortness of breath. Will be dialyzed today according to nephrology. Change the dose of steroids from 40 mg to 10 mg Pertinent ROS: Denies headache, dizziness Denies chest pain, palpitations Denies cough or shortness of breath Denies abdominal pain, nausea or vomiting. - Constitutional Vitals: Vital Signs Temp Pulse Resp BP Pulse Ox 98.2 F 64 22 96/44 97 09/21/17 12:00 09/21/17 12:00 09/21/17 12:00 09/21/17 12:09/21/17 12:00 Period Temp Pulse Resp BP Sys/Millan Pulse Ox Last 24 Hr 96.4 F-98.2 F 60-78 15-22 85-120/44-68 94-97 Intake and Output 09/21/17 09/21/17 09/21/17 05:59 13:59 21:59 Weight 182 lb 8 oz Patient Weight 09/22/17 05:59 Weight 182 lb 8 oz Intake & Output: Intake & Output 09/21/17 09/21/17 09/21/17 05:59 13:59 21:59 Weight 182 lb 8 oz Other: Stool Size Moderate Small Stool Color Brown Brown Stool Consistency Soft Soft Loose # Bowel Movements 1 # of times incontinent of 1 1 Bowels Exam: Constitutional; Afebrile, cooperative, alert, not in distress. Generalized anasarca Eyes- No icterus, , No periorbital swelling Ears- Ext ear normal, hearing normal to conversation. Neck- Midline trachea, supple Respiratory system: Air Entry equal on both sides bibasilar crackles left more than right or wheezing, no rhonchi. CVS- Rate rhythm regular, S1,S2 heard, no gallop, no rub. Abdomen- Soft nontender abdomen, no organomegaly, no tenderness, no guarding or rigidity, [employer]- AOOx3, moving all extremities, no gross focal deficit noted. Medical - PN: Obj Da - Labs CBC & Chem 7: 09/21/17 04:25 09/21/17 04:25 Labs: Abnormal Lab Results 09/21/17 09/21/17 09/20/17 04:25 04:25 04:10 WBC 15.6 H RBC 3.58 L MCV 114.7 H MCH 37.1 H RDW 20.7 H MPV 10.8 H Gran % 78.3 H Lymph % (Auto) 11.2 L Gran # 12.2 H [place] # (Auto) 1.4 H Chloride 94 L 94 L Carbon Dioxide 18 L 17 L Anion Gap 22.0 H 25.0 H BUN 27 H 41 H Creatinine 3.7 H 5.0 H Glucose 146 H GGT 48 H 44 H AST 46 H 108 H ALT 46 H Lactate Dehydrogenase 291 H 337 H 09/20/17 04:10 WBC 12.8 H RBC 3.49 L MCV 113.3 H MCH 36.8 H RDW 20.1 H MPV 11.4 H Gran % Lymph % (Auto) 12.8 L Gran # 9.8 H [place] # (Auto) 1.0 H Chloride Carbon Dioxide Anion Gap BUN Creatinine Glucose GGT AST ALT Lactate Dehydrogenase Meds: Medications Acetaminophen (Tylenol) 650 mg PO Q4-6HP PRN PRN Reason: PAIN/FEVER > 101 Budesonide (Pulmicort) 0.5 mg NEB Q12 [facility] Last Admin: 09/21/17 08:51 Dose: 0.5 mg Collagenase (Santyl Top Oint) 1 dose TOPICAL BID [facility] Last Admin: 09/21/17 09:30 Dose: 1 applic Cyanocobalamin (Vitamin B-12) 1,000 mcg PO DAILY [facility] Last Admin: 09/21/17 09:25 Dose: 1,000 mcg Dextrose (Dextrose 50%) 0 ml IV UD PRN PRN Reason: Hypoglycemia Diagnostic Test (Pha) (Accu-Chek) 1 each FS ACHS [facility] Last Admin: 09/21/17 12:01 Dose: 1 each Fluoxetine HCl (Prozac) 40 mg PO DAILY [facility] Last Admin: 09/21/17 09:25 Dose: 40 mg Heparin Sodium (Porcine) (Heparin) 5,000 unit SQ Q12 [facility] Last Admin: 09/21/17 09:25 Dose: 5,000 unit Gentamicin Sulfate 40 mg/Clindamycin Phosphate 300 mg/Bacitracin 25,000 unit/ Sodium Chloride 503 mls @ 0 mls/hr IRR BID [facility] PRN Reason: As Directed Last Admin: 09/21/17 09:27 Dose: 5 mls/hr Piperacillin Sod/Tazobactam (Sod 2.25 gm/ Dextrose) 50 mls @ 100 mls/hr IV Q12H [facility] Last Admin: 09/21/17 10:10 Dose: 100 mls/hr Insulin Human Lispro (Humalog) 0 unit SQ ACHS [facility] PRN Reason: Protocol Last Admin: 09/21/17 12:01 Dose: 2 unit Lactobacillus Rhamnosus (Culturelle) 1 cap PO BID [facility] Last Admin: 09/21/17 09:24 Dose: 1 cap Lorazepam (Ativan) 0.5 mg PO Q4HP PRN PRN Reason: ANXIETY/SEDATION Last Admin: 09/18/17 22:48 Dose: 0.5 mg Midodrine (Midodrine Hcl) 15 mg PO TID@0800,1200,1700 [facility] Last Admin: 09/21/17 12:01 Dose: 15 mg Aripiprazole [ Aripiprazole] 2 Mg Tablet 2 mg PO QDAY [facility] Last Admin: 09/21/17 09:11 Dose: 2 mg Ondansetron HCl (Zofran) 4 mg IV Q4-6HP PRN PRN Reason: Nausea And Vomiting Prednisone (Prednisone) 10 mg PO QAMCC [facility] Last Admin: 09/21/17 08:31 Dose: Not Given Promethazine HCl (Phenergan) 12.5 mg IV Q6-8HP PRN PRN Reason: Nausea And Vomiting Senna (Senokot) 1 tab PO HS [facility] Last Admin: 09/20/17 21:47 Dose: Not Given Sevelamer Carbonate (Renvela) 800 mg PO TIDAC [facility] Last Admin: 09/21/17 12:01 Dose: 800 mg Sodium Chloride (Saline Flush) 10 ml IV Q8 [facility] Last Admin: 09/21/17 13:10 Dose: 10 ml Sodium Chloride (Saline Flush) 10 ml IV Q12 [facility] Last Admin: 09/21/17 09:31 Dose: 10 ml Tramadol/Acetaminophen (Ultracet) 1 tab PO Q8HP PRN PRN Reason: Pain Last Admin: 09/20/17 23:59 Dose: 1 tab Trazodone HCl (Desyrel) 250 mg PO [facility] Last Admin: 09/20/17 21:46 Dose: 250 mg Vancomycin HCl (Vancomycin Oral Lizy) 250 mg PO QID [facility] Last Admin: 09/21/17 13:09 Dose: 250 mg Medical - PN: A/P - Time Spent With Patient Total time spent is greater than 50% in coordination of care (as documented) at patient's floor/unit and/or counseling patient: - Narrative A/P Narrative: A/P A/P Hypotension : multifactorial, due to infection, volume depletion vs related to ESRD stats/ endocrine abnormality Continue on Midodrine, on prednisone for now, off Florinef. 09/14 femoral artery cath placement: SBP about 10 mg higher than cuff. Removed after few hours IV steroids x 1 given 09/14 empirically. Pt feeling better On Prednisone 40 mg daily, change dose to 10mg qd Health care associated pneumonia: Blood culture sent, started on Vanco and Zosyn. Monitor Small bowel obstruction? More likely C.dif colitis. Appreciate dr Ricketts's help. No obstruction. Symptoms resolving Diarrhea: positive for C dif toxin. Vanco po Flagyl IV 09/09. Diarrhea resolved . Day 11 (09/19): will d/c IV flagyl. Dose of vancomycin increased to 250 on 09/20, continue po vancomycin 1 week post resolution of loose stools Right knee bursitis/ Open wound: Possibly infected bursits vs hematoma vs reactionary swelling , get X Ray of the knee is reported negative. Wound inspection done with dr Pedraza 09/10. Appreciate wound care help + Wound, Knee/ elbow. MRSA pos. Most likely colonization vs infection. + Hypokalemia: replace K as needed + ESRD on HD, followed by Dr Reagan. + COPD: No wheezing on exam to continue bronchodilators, + Fibromyalgia/ Chr pain: On usual meds + CAD no chest pain, on plavix Hold Plavix 09/17, for upcoming HD placement after AV fistula ligation DVT hep sq DNR code status. Overall poor prognosis Procedures - Arterial Line Size (Gauge): 20
[2017-09-21] MEDS: traZODone HCL 50 MG TABLET PO SCH (21:51)
[2017-09-21] MEDS: traMADol HCL/ACETAMINOPHEN 1 TAB TABLET PO PRN (21:52)
[2017-09-21] MEDS: SENNOSIDES 1 TABLET PO SCH (21:55)
[2017-09-21] MEDS: LORazepam 0.5 MG TABLET PO PRN (23:43)
[2017-09-22] MEDS: 0.9 % SODIUM CHLORIDE 10 ML SYRINGE IV SCH ×5 (05:35→22:31)
[2017-09-22 06:16] LABS: Basophils # (Auto) 0 K/mcL (0.0-0.3); Basophils % (Auto) 0.1 % (0.0-2.0); Eosinophils # (Auto) 0.4 K/mcL (0.0-0.7); Eosinophils % (Auto) 2.4 % (0.0-7.0); Granulocytes % (Auto) 77.6 % (38.0-78.0); Lymphocytes # (Auto) 2.1 K/mcL (1.5-4.8); Lymphocytes % (Auto) 12.9 % (15.5-49.0); Mean Cell Volume 114.1 fL (80.0-100.0); Mean Corpuscular HGB Conc 32.7 g/dL (31.0-36.0); Mean Corpuscular Hemoglobin 37.4 pg (26.0-34.0); Monocytes # (Auto) 1.2 K/mcL (0.1-0.9); Platelet Count 197 K/mcL (140-440); RBC 3.71 M/mcL (4.00-5.20); Red Cell Distribution Width 20.5 % (11.5-14.5)
[2017-09-22 06:26] LABS: ALT/SGPT 31 U/l (0-40); Albumin 3.4 gm/dL (3.2-5.2); Albumin/Globulin Ratio 1.1 (1.0-2.3); Alkaline Phosphatase 79 U/L (39-117); Bilirubin,Direct < 0.2 mg/dL (0.0-0.3); Blood Urea Nitrogen 23 mg/dl (8-23); Gamma Glutamyl Transpeptidase 51 U/L (5-36)
[2017-09-22] MEDS: SEVELAMER 800 MG TABLET PO SCH ×3 (08:22→17:02)
[2017-09-22] MEDS: MIDODRINE 5 MG TABLET PO SCH ×3 (08:22→22:54)
[2017-09-22] MEDS: predniSONE 10 MG TABLET PO SCH (08:22)
[2017-09-22] MEDS: INSULIN LISPRO 1 UNIT/0.01 ML UNIT SQ SCH ×4 (08:24→22:28)
[2017-09-22] MEDS: PIPERACILLIN SODIUM/TAZOBACTAM 2.25 GM in DEXTROSE 5% IN WATER 50 ML IV SCH ×3 (09:10→22:29)
[2017-09-22] MEDS: HEPARIN 5,000 UNIT/ML VIAL SQ SCH ×2 (09:10→22:27)
[2017-09-22] MEDS: GENTAMICIN SULFATE 40 MG, CLINDAMYCIN 300 MG, BACITRACIN 25,000 UNIT in SODIUM CHLORIDE... IRR SCH ×2 (09:10→22:56)
[2017-09-22] MEDS: FLUoxetine HCL 20 MG CAPSULE PO SCH (09:10)
[2017-09-22] MEDS: ARIPIPRAZOLE 2 MG PO SCH (09:10)
[2017-09-22] MEDS: CYANOCOBALAMIN (VITAMIN B-12) 500 MCG TABLET PO SCH (09:11)
[2017-09-22] MEDS: LACTOBACILLUS 1 CAPSULE PO SCH ×2 (09:11→22:27)
[2017-09-22] MEDS: COLLAGENASE TOP OINT TUBE 30GM TOPICAL SCH ×2 (09:14→22:56)
[2017-09-22] MEDS: BUDESONIDE 0.5 MG/2 ML AMPUL.NEB NEB SCH ×2 (09:33→21:45)
[2017-09-22] MEDS: VANCOMYCIN ORAL SOL 1,000 MG/10 ML BOTTLE PO SCH ×4 (11:32→22:31)
--- NOTE | 2017-09-22 14:21 | Nephrology Progress Note ---
Subjective Patient information: Note initiated : 09/22/17 at 2:18 pm Service Date, if different from initiated Date: [] Patient: Naz Joseph 72 y/o F admitted on 09/08/17 for Hypotension/Small Bowel Obstruction. Chief Complaint: [] Principal diagnosis: End stage renal disease on chronic hemodialysis Interval history: No overnight events BP stable in 90's systolic no worsening SOB, edema in thigh and abdomen slowly improving still has diarrhea, wbc count trending up no other issues tolerating HD and UF removal well Pertinent ROS: as above Objective - Vital Signs Vital signs: Vital Signs Temp Pulse Pulse Resp BP BP BP 09/22/17 12:00 97.1 F 20 96/56 09/22/17 09:33 68 18 09/22/17 06:57 96.4 F L 16 94/58 09/22/17 05:12 97.5 F 66 20 102/66 09/22/17 00:28 97.3 F 66 16 90/52 09/21/17 21:03 09/21/17 21:00 70 15 09/21/17 19:37 98.8 F 70 20 92/58 09/21/17 17:49 97.1 F 59 L 102/63 09/21/17 17:27 65 95/50 09/21/17 17:04 62 101/74 09/21/17 16:34 97.6 F 65 103/64 09/21/17 16:00 97.9 F 63 16 122/92 09/21/17 15:50 97.9 F 98 H 122/92 09/21/17 15:14 49 L 124/33 09/21/17 14:53 62 82/54 Pulse Ox 09/22/17 12:00 98 09/22/17 09:33 09/22/17 06:57 96 09/22/17 05:12 93 09/22/17 00:28 98 09/21/17 21:03 99 09/21/17 21:00 09/21/17 19:37 96 09/21/17 17:49 09/21/17 17:27 09/21/17 17:04 09/21/17 16:34 09/21/17 16:00 98 09/21/17 15:50 09/21/17 15:14 09/21/17 14:53 Intake and Output 09/22/17 09/22/17 09/22/17 05:59 13:59 21:59 Intake Total 410 / 410 50 / 50 Balance 410 / 410 50 / 50 Intake: IV 50 / 50 50 / 50 Zosyn 2.25 gm In Dextrose 5% in 50 / 50 50 / 50 Water 50 ml @ 100 mls/hr IV Q8H [facility] Rx#:[id number] Oral 360 / 360 Other: # of times incontinent of 1 Bowels Intake & Output: Intake & Output 09/22/17 09/22/17 09/22/17 05:59 13:59 21:59 Intake Total 410 / 410 50 / 50 Balance 410 / 410 50 / 50 Intake: IV 50 / 50 50 / 50 Zosyn 2.25 gm In Dextrose 5% in 50 / 50 50 / 50 Water 50 ml @ 100 mls/hr IV Q8H [facility] Rx#:[id number] Oral 360 / 360 Other: # of times incontinent of 1 Bowels - General Appearance General appearance: appears started age, chronically ill, frail EENT: mucous membranes moist Neck: no JVD Respiratory: rales Cardiology: no rub, edema, normal S1, normal S2 Gastrointestinal: no tenderness, no guarding Integumentary: warm and dry, ecchymotic, skin tear Neurologic: alert and oriented x3 Musculoskeletal: no cyanosis, no clubbing Psychiatric: mood/affect appropriate - Lab 09/22/17 04:35 09/22/17 04:35 Most recent lab results Calcium 9.6 mg/dl (8.6-10.4) 09/22/17 04:35 Phosphorus 2.6 mg/dL (2.7-4.5) L 09/22/17 04:35 Magnesium 1.7 mg/dL (1.6-2.5) 09/22/17 04:35 Assessment and Plan (1) ESRD (end stage renal disease) on dialysis HD today for 3.5 hrs using revaclear dialyser 3k/2.5ca dialysate, uf goal of 2- 3L as tolerated Hypotension: chronic, worse given acute issues A line shows 10 point difference in systolic BP ct midodrine to 15mg tid prednisone dose reduced to 10mg will maintain on t his dose low albumin: patient encouraged to try and eat on nepro/protein supplement as well Knee abscess: improving slowly with local wound care, followed by wound care team C diff: on antibiotics, ? needs repeat stool studies given ongoing diarrhea pneumonia on zosyn Patient has overall very poor prognosis she has refused hospice on multiple occasions I have tried to address this with her She understands if her BP does not improve with ligation of AVF she may need to go comfort care as unable to dialysis as outpt, unable to achieve any UF will monitor closely for now given patient wishes Will follow along AVF ligation planned for next week in an attempt to increase her systolic BP as we get 10 point increase in her systolic BP on occluding AVF Appreciate hospitalist help in managing this patient Status: Chronic Priority: Medium (2) Peripheral edema Status: Chronic Comment: must consider diastolic dysfunction with right heart failure and pulmonary HTN CONTRIBUTING causes
--- NOTE | 2017-09-22 14:52 | Internal Med Progress Note ---
Medical - PN: Subj Patient information: Note initiated : 09/22/17 at 2:49 pm Service Date, if different from initiated Date: [] Patient: Naz Joseph a 72 y/o F admitted on 09/08/17 for Hypotension/Small Bowel Obstruction. Chief Complaint: [] Interval history: Ms. Joseph is a 72 year old Female with h/o end-stage renal disease on dialysis follows with Dr. REAGAN, the patient presents to the emergency room after being sent from dialysis to the ER for low blood pressure. According to the patient she has not been well for the last 2 weeks. She has been weak, she fell down reports this as a mechanical fall and injured the right side of the knee. She developed a wound for which she has been followed by the wound care clinic. According to the patient history the swab taken from that wound was growing MRSA, patient is on Bactrim and Keflex for same. The patient has been having ongoing diarrhea for approximately last 1 week liquid watery dark green 4-5 episodes every day, she has been getting weaker and more fatigued. She has had decreased appetite and has not been eating or drinking very well. She also admits to be having some nausea. The patient reports that she is not able to ambulate well and finds it difficult to even get up and move around. She presented for dialysis at which point in time she was noted to have low blood pressures with systolic in 70s, he was therefore sent to the emergency room for further evaluation. The patient also notes that she has subjective sensations of chills and intermittent shakes which have been progressively getting worse over the last weeks. Has any documented fever, has chronic headaches worse now, no dizziness , no changes in vision, has dry mouth no difficulty in swallowing no changes in hearing, no neck swelling or lymphadenopathy no bleeding. She has shortness of breath on exertion which is far worse than her baseline. She denies any chest pain, has nausea no abdominal pain she had diarrhea over the last 1 week. The patient denies any acute joint swelling or joint pain besides the right knee. In the emergency room the patient was afebrile, heart rate 67 blood pressure 78/ 61, saturating 98% on room air, White blood cell count was 8.8 hemoglobin 12.9 platelets 155, sodium 138, potassium 2.9, bicarbonate 29 creatinine 4.6 glucose level was 81. The patient's x-ray of the abdomen showed possible small bowel obstruction, CT scan of the abdomen was done with contrast after consultation with nephrology and was tentatively reported as small bowel obstruction. Dr. Ricketts the general surgeon was consulted from the emergency room. He would be seeing the patient. The patient's right knee had an ulcer with erythema extending on the anterior aspect of the knee, on my exam there was fluctuation likely infected bursitis Given low blood pressure, which remained low despite 2 L of fluid resuscitation possible abscess, small bowel obstruction the patient has been admitted to the ICU for further management. September 09 Patient seen examined, feeling better, on Levophed, patient has no acute complaints, appreciate help from surgery as well as nephrology. X-ray abdomen repeated today. Patient is scheduled for dialysis today. Central line placed yesterday, CVP is elevated at 15-18. Echo ordered. Cdif positive. September 10 On Vanco po for C dif. Liquid diarrhea. Rectal tube in. Still profuse diarrhea. Will add Metronidazole IV Examined knee R with dr Pedraza. Don't think it's infected, or requires systemic antibiotics. Case d/w nephrology (dr Bynum): HD for fluid overload today. Still on Levophed gtt. September 11 HD today. CVP was 20. Was drinking lots of fluid. Now on fluid restriction. Levophed at 10. Still significant stool output, but more formed. Considering placement of femoral a-line, but should wait till C.dif resolved. Will increase Florinef from 0.05 q 48 hr to 0.1 daily September 12 Less stool out put. Tolerating full liquid diet. CVP 15. Levophed 8-10 mcg. HD 2-3 L off. Discussed the many problems with patient. Limited treatment options available if hypotension persists. September 13 Abdominal pain and severe nausea this am. KUB: no evidence of obstruction On Levo 5 mcg/min September 14 Still requiring Levophed 5 - 10 mcg/min to keep MAP 65 Diarrhea resolved. Still on Vanco po and Flagyl IV for C dif colitis. Plan today: arterial fem cath placement September 15 A-line reading about 10 mm Hg higher than cuff Diarrhea resolved Feeling better September 16 Few BMs, soft Required Levophed 2 to keep MAP > 65. Patient states she hasn't been symptomatic with SBPs in 80's. Will discontinued Levo and advance activity to chair BID September 17 Day 8 of Vanco po and Flagyl IV for severe C.dif colitis Is doing better. SBP around 90's off Levophed x 24 hours. For HD today For ligation AV-fistula sometime this week and placement HD catheter. Will hold Plavix ? d/c CVP line September 19: CVP line removed Patient is doing ok. Very weak. Standing up with 2 p assist. No diarrhea, or nausea. Appetite fair. SBP in 90's. HR 80's September 20 Seen and examined, no acute overnight events, patient still very weak needing 2 people assist. She still has loose bowel movements. Times a day but no acute diarrhea. She denies any chest pain shortness of breath nausea vomiting. Her appetite is good. Labs show slight worsening of leukocytosis, patient is on steroids, also has C. difficile. Will increase the dose of vancomycin from 125 to 250mg 4 times daily. Will treat for at least 1 week after resolution of diarrhea. Clinically the patient feels well. september 21 She is seen and examined, no acute overnight events, she feels better however still weak requiring help for ambulation. She still has loose bowel movements. No changes since yesterday. She denies any other acute complaints. Leukocytosis is worsening. Chest x-ray done this morning shows new pneumonia on the left side with possible effusion. Patient's blood culture ordered started on IV vancomycin and Zosyn. Overall the patient feels well, denies any chest pain or shortness of breath. Will be dialyzed today according to nephrology. Change the dose of steroids from 40 mg to 10 mg september 22 Patient seen and examined no acute overnight events, blood pressure is stable. Remains on prednisone 10 mg as well as midodrine 50 mg 3 times a day. WBC count is slightly elevated compared to yesterday. Patient did get 40 mg of prednisone yesterday rather than 10. The patient feels well has no concerns or complaints. She still quite weak and needs assistance for transfers. She denies any cough no shortness of breath no fever no chills. Appreciate help of nephrology and management of dialysis related issues as well as blood pressure management. Patient remains on vancomycin and Zosyn for infection [pneumonia]. Patient to be dialyzed today. The patient is still complaining about diarrhea, will start her on banatrol Pertinent ROS: Denies headache, dizziness Denies chest pain, palpitations Denies cough or shortness of breath Denies abdominal pain, nausea or vomiting. - Constitutional Vitals: Vital Signs Temp Pulse Resp BP Pulse Ox 97.1 F 68 20 96/56 98 09/22/17 12:00 09/22/17 09:33 09/22/17 12:00 09/22/17 12:00 09/22/17 12:00 Period Temp Pulse Resp BP Sys/Millan Pulse Ox Last 24 Hr 96.4 F-98.8 F 49-98 15-20 82-124/33-92 93-99 Intake and Output 09/22/17 09/22/17 09/22/17 05:59 13:59 21:59 Intake Total 410 / 410 50 / 50 Balance 410 / 410 50 / 50 Intake & Output: Intake & Output 09/22/17 09/22/17 09/22/17 05:59 13:59 21:59 Intake Total 410 / 410 50 / 50 Balance 410 / 410 50 / 50 Intake: IV 50 / 50 50 / 50 Zosyn 2.25 gm In Dextrose 5% in 50 / 50 50 / 50 Water 50 ml @ 100 mls/hr IV Q8H [facility] Rx#:[id number] Oral 360 / 360 Other: # of times incontinent of 1 Bowels Exam: Constitutional; Afebrile, cooperative, alert, not in distress. Eyes- No icterus, , No periorbital swelling Ears- Ext ear normal, hearing normal to conversation. Neck- Midline trachea, supple Respiratory system: Air Entry equal on both sides, No crackles or wheezing, no rhonchi. CVS- Rate rhythm regular, S1,S2 heard, no gallop, no rub. Abdomen- Soft nontender abdomen, no organomegaly, no tenderness, no guarding or rigidity, [employer]- AOOx3, moving all extremities, no gross focal deficit noted. Medical - PN: Obj Da - Labs CBC & Chem 7: 09/22/17 04:35 09/22/17 04:35 Labs: Abnormal Lab Results 09/22/17 09/22/17 09/21/17 04:35 04:35 04:25 WBC 16.3 H RBC 3.71 L MCV 114.1 H MCH 37.4 H RDW 20.5 H MPV 10.7 H Gran % Lymph % (Auto) 12.9 L Gran # 12.7 H Zavala # (Auto) 1.2 H Chloride 90 L 94 L Carbon Dioxide 20 L 18 L Anion Gap 23.0 H 22.0 H BUN 27 H Creatinine 3.2 H 3.7 H Glucose Phosphorus 2.6 L GGT 51 H 48 H AST 46 H ALT Lactate Dehydrogenase 294 H 291 H 09/21/17 09/20/17 09/20/17 04:25 04:10 04:10 WBC 15.6 H 12.8 H RBC 3.58 L 3.49 L MCV 114.7 H 113.3 H MCH 37.1 H 36.8 H RDW 20.7 H 20.1 H MPV 10.8 H 11.4 H Gran % 78.3 H Lymph % (Auto) 11.2 L 12.8 L Gran # 12.2 H 9.8 H Zavala # (Auto) 1.4 H 1.0 H Chloride 94 L Carbon Dioxide 17 L Anion Gap 25.0 H BUN 41 H Creatinine 5.0 H Glucose 146 H Phosphorus GGT 44 H AST 108 H ALT 46 H Lactate Dehydrogenase 337 H Meds: Medications Acetaminophen (Tylenol) 650 mg PO Q4-6HP PRN PRN Reason: PAIN/FEVER > 101 Budesonide (Pulmicort) 0.5 mg NEB Q12 [facility] Last Admin: 09/22/17 09:33 Dose: 0.5 mg Collagenase (Santyl Top Oint) 1 dose TOPICAL BID [facility] Last Admin: 09/22/17 09:14 Dose: 1 applic Cyanocobalamin (Vitamin B-12) 1,000 mcg PO DAILY [facility] Last Admin: 09/22/17 09:11 Dose: 1,000 mcg Dextrose (Dextrose 50%) 0 ml IV UD PRN PRN Reason: Hypoglycemia Diagnostic Test (Pha) (Accu-Chek) 1 each FS ACHS [facility] Last Admin: 09/22/17 11:32 Dose: 1 each Fluoxetine HCl (Prozac) 40 mg PO DAILY [facility] Last Admin: 09/22/17 09:10 Dose: 40 mg Heparin Sodium (Porcine) (Heparin) 5,000 unit SQ Q12 [facility] Last Admin: 09/22/17 09:10 Dose: 5,000 unit Gentamicin Sulfate 40 mg/Clindamycin Phosphate 300 mg/Bacitracin 25,000 unit/ Sodium Chloride 503 mls @ 0 mls/hr IRR BID [facility] PRN Reason: As Directed Last Admin: 09/22/17 09:10 Dose: 1 mls/hr Piperacillin Sod/Tazobactam (Sod 2.25 gm/ Dextrose) 50 mls @ 100 mls/hr IV Q8H [facility] Last Infusion: 09/22/17 09:40 Dose: Infused Insulin Human Lispro (Humalog) 0 unit SQ ACHS [facility] PRN Reason: Protocol Last Admin: 09/22/17 11:38 Dose: 2 unit Lactobacillus Rhamnosus (Culturelle) 1 cap PO BID [facility] Last Admin: 09/22/17 09:11 Dose: 1 cap Lorazepam (Ativan) 0.5 mg PO Q4HP PRN PRN Reason: ANXIETY/SEDATION Last Admin: 09/21/17 23:43 Dose: 0.5 mg Midodrine (Midodrine Hcl) 15 mg PO TID@0800,1200,1700 [facility] Last Admin: 09/22/17 11:33 Dose: 15 mg Aripiprazole [ Aripiprazole] 2 Mg Tablet 2 mg PO QDAY [facility] Last Admin: 09/22/17 09:10 Dose: 2 mg Ondansetron HCl (Zofran) 4 mg IV Q4-6HP PRN PRN Reason: Nausea And Vomiting Prednisone (Prednisone) 10 mg PO QAMCC [facility] Last Admin: 09/22/17 08:22 Dose: 10 mg Promethazine HCl (Phenergan) 12.5 mg IV Q6-8HP PRN PRN Reason: Nausea And Vomiting Senna (Senokot) 1 tab PO [facility] Last Admin: 09/21/17 21:55 Dose: Not Given Sevelamer Carbonate (Renvela) 800 mg PO TIDAC [facility] Last Admin: 09/22/17 11:33 Dose: 800 mg Sodium Chloride (Saline Flush) 10 ml IV Q8 [facility] Last Admin: 09/22/17 14:38 Dose: 10 ml Sodium Chloride (Saline Flush) 10 ml IV Q12 [facility] Last Admin: 09/22/17 09:13 Dose: 10 ml Tramadol/Acetaminophen (Ultracet) 1 tab PO Q8HP PRN PRN Reason: Pain Last Admin: 09/21/17 21:52 Dose: 1 tab Trazodone HCl (Desyrel) 250 mg PO [facility] Last Admin: 09/21/17 21:51 Dose: 250 mg Vancomycin HCl (Vancomycin Oral Lizy) 250 mg PO QID [facility] Last Admin: 09/22/17 14:38 Dose: 250 mg Medical - PN: A/P - Time Spent With Patient Total time spent is greater than 50% in coordination of care (as documented) at patient's floor/unit and/or counseling patient: - Narrative A/P Narrative: A/P A/P Hypotension : multifactorial, due to infection, volume depletion vs related to ESRD stats/ endocrine abnormality Continue on Midodrine, on prednisone for now, off Florinef. 09/14 femoral artery cath placement: SBP about 10 mg higher than cuff. Removed after few hours IV steroids x 1 given 09/14 empirically. Pt feeling better On Prednisone 10 mg daily, pt to be discharged on 10mg daily of prednisone. Health care associated pneumonia: Blood culture sent, started on Vanco and Zosyn. cultures neg so far, day 2 of antibiotics 09/22/17 Repeat CXR in AM Small bowel obstruction? More likely C.dif colitis. Appreciate dr Ricketts's help. No obstruction. Symptoms resolving Diarrhea: positive for C dif toxin. Vanco po Flagyl IV 09/09. Diarrhea resolved . Day 11 (09/19): will d/c IV flagyl. Dose of vancomycin increased to 250 on 09/20, continue po vancomycin 1 week post resolution of loose stools Start on po banatrol to help with stool consistency, Pt on probiotics. Right knee bursitis/ Open wound: Possibly infected bursits vs hematoma vs reactionary swelling , get X Ray of the knee is reported negative. Wound inspection done with dr Pedraza 09/10. Appreciate wound care help + Wound, Knee/ elbow. MRSA pos. Most likely colonization vs infection. + Hypokalemia: replace K as needed + ESRD on HD, followed by Dr Reagan. + COPD: No wheezing on exam to continue bronchodilators, + Fibromyalgia/ Chr pain: On usual meds + CAD no chest pain, on plavix Hold Plavix 09/17, for upcoming HD placement after AV fistula ligation DVT hep sq DNR code status. Overall poor prognosis Procedures - Arterial Line Size (Gauge): 20
[2017-09-22] MEDS: traMADol HCL/ACETAMINOPHEN 1 TAB TABLET PO PRN ×2 (15:56→22:27)
[2017-09-22] MEDS: traZODone HCL 50 MG TABLET PO SCH (22:26)
[2017-09-22] MEDS: SENNOSIDES 1 TABLET PO SCH (22:30)
[2017-09-23 05:15] LABS: Basophils # (Auto) 0 K/mcL (0.0-0.3); Basophils % (Auto) 0.2 % (0.0-2.0); Eosinophils # (Auto) 0.3 K/mcL (0.0-0.7); Eosinophils % (Auto) 2.3 % (0.0-7.0); Granulocytes % (Auto) 73.3 % (38.0-78.0); Lymphocytes # (Auto) 2.7 K/mcL (1.5-4.8); Lymphocytes % (Auto) 17.7 % (15.5-49.0); Mean Cell Volume 114.1 fL (80.0-100.0); Mean Corpuscular Hemoglobin 37.6 pg (26.0-34.0); Monocytes % (Auto) 6.5 % (1.0-12.0); Platelet Count 199 K/mcL (140-440); RBC 3.63 M/mcL (4.00-5.20); Red Cell Distribution Width 21.4 % (11.5-14.5)
[2017-09-23] MEDS: 0.9 % SODIUM CHLORIDE 10 ML SYRINGE IV SCH ×6 (05:15→22:53)
[2017-09-23] MEDS: PIPERACILLIN SODIUM/TAZOBACTAM 2.25 GM in DEXTROSE 5% IN WATER 50 ML IV SCH ×3 (05:15→22:11)
[2017-09-23 05:49] LABS: ALT/SGPT 26 U/l (0-40); Albumin 3.5 gm/dL (3.2-5.2); Albumin/Globulin Ratio 1.3 (1.0-2.3); Alkaline Phosphatase 88 U/L (39-117); Bilirubin,Direct 0.2 mg/dL (0.0-0.3); Blood Urea Nitrogen 18 mg/dl (8-23); Gamma Glutamyl Transpeptidase 52 U/L (5-36); Uric Acid 3.4 mg/dL (2.5-8.0)
[2017-09-23] MEDS: predniSONE 10 MG TABLET PO SCH (07:15)
[2017-09-23] MEDS: INSULIN LISPRO 1 UNIT/0.01 ML UNIT SQ SCH ×4 (07:15→22:13)
[2017-09-23] MEDS: MIDODRINE 5 MG TABLET PO SCH ×3 (07:15→17:11)
[2017-09-23] MEDS: SEVELAMER 800 MG TABLET PO SCH ×3 (07:15→17:12)
--- NOTE | 2017-09-23 08:47 | XRay Report ---
CLINICAL INFORMATION: Pneumonia COMPARISON: 09/21/2017 FINDINGS: Moderate cardiomegaly is unchanged. Mediastinum is unremarkable. Moderate sized consolidated infiltrate in the left base with small effusion has worsened slightly. Chronic elevation right diaphragm again noted. Mild redistribution of the upper lobe pulmonary vasculature is related to basilar airspace disease and unchanged. IMPRESSION: Moderate consolidated infiltrate with associated effusion in the left base - worsening slightly Interpreted and Authenticated by: Fortino Mendoza 09/23/17
[2017-09-23] MEDS ORDERED: FIDAXOMICIN 200 MG TABLET PO SCH (09:00)
--- NOTE | 2017-09-23 09:10 | Internal Med Progress Note ---
Medical - PN: Subj Patient information: Note initiated : 09/23/17 at 9:05 am Service Date, if different from initiated Date: [] Patient: Naz Joseph a 72 y/o F admitted on 09/08/17 for Hypotension/Small Bowel Obstruction. Chief Complaint: [] Interval history: Ms. Joseph is a 72 year old Female with h/o end-stage renal disease on dialysis follows with Dr. REAGAN, the patient presents to the emergency room after being sent from dialysis to the ER for low blood pressure. According to the patient she has not been well for the last 2 weeks. She has been weak, she fell down reports this as a mechanical fall and injured the right side of the knee. She developed a wound for which she has been followed by the wound care clinic. According to the patient history the swab taken from that wound was growing MRSA, patient is on Bactrim and Keflex for same. The patient has been having ongoing diarrhea for approximately last 1 week liquid watery dark green 4-5 episodes every day, she has been getting weaker and more fatigued. She has had decreased appetite and has not been eating or drinking very well. She also admits to be having some nausea. The patient reports that she is not able to ambulate well and finds it difficult to even get up and move around. She presented for dialysis at which point in time she was noted to have low blood pressures with systolic in 70s, he was therefore sent to the emergency room for further evaluation. The patient also notes that she has subjective sensations of chills and intermittent shakes which have been progressively getting worse over the last weeks. Has any documented fever, has chronic headaches worse now, no dizziness , no changes in vision, has dry mouth no difficulty in swallowing no changes in hearing, no neck swelling or lymphadenopathy no bleeding. She has shortness of breath on exertion which is far worse than her baseline. She denies any chest pain, has nausea no abdominal pain she had diarrhea over the last 1 week. The patient denies any acute joint swelling or joint pain besides the right knee. In the emergency room the patient was afebrile, heart rate 67 blood pressure 78/ 61, saturating 98% on room air, White blood cell count was 8.8 hemoglobin 12.9 platelets 155, sodium 138, potassium 2.9, bicarbonate 29 creatinine 4.6 glucose level was 81. The patient's x-ray of the abdomen showed possible small bowel obstruction, CT scan of the abdomen was done with contrast after consultation with nephrology and was tentatively reported as small bowel obstruction. Dr. Ricketts the general surgeon was consulted from the emergency room. He would be seeing the patient. The patient's right knee had an ulcer with erythema extending on the anterior aspect of the knee, on my exam there was fluctuation likely infected bursitis Given low blood pressure, which remained low despite 2 L of fluid resuscitation possible abscess, small bowel obstruction the patient has been admitted to the ICU for further management. September 09 Patient seen examined, feeling better, on Levophed, patient has no acute complaints, appreciate help from surgery as well as nephrology. X-ray abdomen repeated today. Patient is scheduled for dialysis today. Central line placed yesterday, CVP is elevated at 15-18. Echo ordered. Cdif positive. September 10 On Vanco po for C dif. Liquid diarrhea. Rectal tube in. Still profuse diarrhea. Will add Metronidazole IV Examined knee R with dr Pedraza. Don't think it's infected, or requires systemic antibiotics. Case d/w nephrology (dr Bynum): HD for fluid overload today. Still on Levophed gtt. September 11 HD today. CVP was 20. Was drinking lots of fluid. Now on fluid restriction. Levophed at 10. Still significant stool output, but more formed. Considering placement of femoral a-line, but should wait till C.dif resolved. Will increase Florinef from 0.05 q 48 hr to 0.1 daily September 12 Less stool out put. Tolerating full liquid diet. CVP 15. Levophed 8-10 mcg. HD 2-3 L off. Discussed the many problems with patient. Limited treatment options available if hypotension persists. September 13 Abdominal pain and severe nausea this am. KUB: no evidence of obstruction On Levo 5 mcg/min September 14 Still requiring Levophed 5 - 10 mcg/min to keep MAP 65 Diarrhea resolved. Still on Vanco po and Flagyl IV for C dif colitis. Plan today: arterial fem cath placement September 15 A-line reading about 10 mm Hg higher than cuff Diarrhea resolved Feeling better September 16 Few BMs, soft Required Levophed 2 to keep MAP > 65. Patient states she hasn't been symptomatic with SBPs in 80's. Will discontinued Levo and advance activity to chair BID September 17 Day 8 of Vanco po and Flagyl IV for severe C.dif colitis Is doing better. SBP around 90's off Levophed x 24 hours. For HD today For ligation AV-fistula sometime this week and placement HD catheter. Will hold Plavix ? d/c CVP line September 19: CVP line removed Patient is doing ok. Very weak. Standing up with 2 p assist. No diarrhea, or nausea. Appetite fair. SBP in 90's. HR 80's September 20 Seen and examined, no acute overnight events, patient still very weak needing 2 people assist. She still has loose bowel movements. Times a day but no acute diarrhea. She denies any chest pain shortness of breath nausea vomiting. Her appetite is good. Labs show slight worsening of leukocytosis, patient is on steroids, also has C. difficile. Will increase the dose of vancomycin from 125 to 250mg 4 times daily. Will treat for at least 1 week after resolution of diarrhea. Clinically the patient feels well. september 21 She is seen and examined, no acute overnight events, she feels better however still weak requiring help for ambulation. She still has loose bowel movements. No changes since yesterday. She denies any other acute complaints. Leukocytosis is worsening. Chest x-ray done this morning shows new pneumonia on the left side with possible effusion. Patient's blood culture ordered started on IV vancomycin and Zosyn. Overall the patient feels well, denies any chest pain or shortness of breath. Will be dialyzed today according to nephrology. Change the dose of steroids from 40 mg to 10 mg september 22 Patient seen and examined no acute overnight events, blood pressure is stable. Remains on prednisone 10 mg as well as midodrine 50 mg 3 times a day. WBC count is slightly elevated compared to yesterday. Patient did get 40 mg of prednisone yesterday rather than 10. The patient feels well has no concerns or complaints. She still quite weak and needs assistance for transfers. She denies any cough no shortness of breath no fever no chills. Appreciate help of nephrology and management of dialysis related issues as well as blood pressure management. Patient remains on vancomycin and Zosyn for infection [pneumonia]. Patient to be dialyzed today. The patient is still complaining about diarrhea, will start her on banatrol September 23 Patient seen and examined, no acute overnight events, BP stable, tolerated dialysis well yesterday. The patient is still having significant diarrhea. She has no abdominal pain. WBC count is slightly trending down today. I will add deficid to her regimen in addition to vancomycin for C. difficile. If the patient's symptoms do not improve will consider GI consult for possible stool transplant. Patient continues to be on IV antibiotics for pneumonia. On chest x-ray done today shows slight worsening of her infiltrate. If the patient does not improve by tomorrow we will consider chest CT to further evaluate this. Pertinent ROS: Denies headache, dizziness Denies chest pain, palpitations Denies cough or shortness of breath Denies abdominal pain, nausea or vomiting. - Constitutional Vitals: Vital Signs Temp Pulse Resp BP Pulse Ox 96.8 F L 65 16 92/52 95 09/23/17 07:04 09/23/17 05:01 09/23/17 07:04 09/23/17 07:04 09/23/17 07:04 Period Temp Pulse Resp BP Sys/Millan Pulse Ox Last 24 Hr 96.7 F-99.0 F 61-86 16-20 78-117/49-66 91-98 Intake and Output 09/22/17 09/23/17 09/23/17 21:59 05:59 13:59 Intake Total 530 / 530 230 / 230 Output Total 3400 / 3400 Balance -2870 / -2870 230 / 230 Weight 174 lb 8 oz Intake & Output: Intake & Output 09/22/17 09/23/17 09/23/17 21:59 05:59 13:59 Intake Total 530 / 530 230 / 230 Output Total 3400 / 3400 Balance -2870 / -2870 230 / 230 Weight 174 lb 8 oz Intake: IV 50 / 50 50 / 50 Zosyn 2.25 gm In Dextrose 5% in 50 / 50 50 / 50 Water 50 ml @ 100 mls/hr IV Q8H [facility] Rx#:[id number] Oral 480 / 480 180 / 180 Output: Hemodialysis UF 3400 / 3400 Other: Meal Dinner Percent of Meal Consumed 50% Feeding Ability Independent Exam: Constitutional; Afebrile, cooperative, alert, not in distress. Eyes- No icterus, , No periorbital swelling Ears- Ext ear normal, hearing normal to conversation. Neck- Midline trachea, supple Respiratory system: Air Entry equal on both sides, No crackles or wheezing, no rhonchi. CVS- Rate rhythm regular, S1,S2 heard, no gallop, no rub. Abdomen- Soft nontender abdomen, no organomegaly, no tenderness, no guarding or rigidity, GATE [employer]ENT- AOOx3, moving all extremities, no gross focal deficit noted. Medical - PN: Obj Da - Labs CBC & Chem 7: 09/23/17 04:15 09/23/17 04:15 Labs: Abnormal Lab Results 09/23/17 09/23/17 09/22/17 04:15 04:15 04:35 WBC 15.4 H RBC 3.63 L MCV 114.1 H MCH 37.6 H RDW 21.4 H MPV 11.1 H Gran % Lymph % (Auto) Gran # 11.3 H [place] # (Auto) 1.0 H Potassium 3.2 L Chloride 89 L 90 L Carbon Dioxide 20 L Anion Gap 22.0 H 23.0 H BUN Creatinine 2.7 H 3.2 H Phosphorus 2.2 L 2.6 L GGT 52 H 51 H AST Lactate Dehydrogenase 262 H 294 H Triglycerides 170 H 09/22/17 09/21/17 09/21/17 04:35 04:25 04:25 WBC 16.3 H 15.6 H RBC 3.71 L 3.58 L MCV 114.1 H 114.7 H MCH 37.4 H 37.1 H RDW 20.5 H 20.7 H MPV 10.7 H 10.8 H Gran % 78.3 H Lymph % (Auto) 12.9 L 11.2 L Gran # 12.7 H 12.2 H [place] # (Auto) 1.2 H 1.4 H Potassium Chloride 94 L Carbon Dioxide 18 L Anion Gap 22.0 H BUN 27 H Creatinine 3.7 H Phosphorus GGT 48 H AST 46 H Lactate Dehydrogenase 291 H Triglycerides Meds: Medications Acetaminophen (Tylenol) 650 mg PO Q4-6HP PRN PRN Reason: PAIN/FEVER > 101 Budesonide (Pulmicort) 0.5 mg NEB Q12 [facility] Last Admin: 09/22/17 21:45 Dose: 0.5 mg Collagenase (Santyl Top Oint) 1 dose TOPICAL BID [facility] Last Admin: 09/22/17 22:56 Dose: 1 applic Cyanocobalamin (Vitamin B-12) 1,000 mcg PO DAILY [facility] Last Admin: 09/22/17 09:11 Dose: 1,000 mcg Dextrose (Dextrose 50%) 0 ml IV UD PRN PRN Reason: Hypoglycemia Diagnostic Test (Pha) (Accu-Chek) 1 each FS ACHS [facility] Last Admin: 09/23/17 07:15 Dose: 1 each Fluoxetine HCl (Prozac) 40 mg PO DAILY [facility] Last Admin: 09/22/17 09:10 Dose: 40 mg Heparin Sodium (Porcine) (Heparin) 5,000 unit SQ Q12 [facility] Last Admin: 09/22/17 22:27 Dose: 5,000 unit Gentamicin Sulfate 40 mg/Clindamycin Phosphate 300 mg/Bacitracin 25,000 unit/ Sodium Chloride 503 mls @ 0 mls/hr IRR BID [facility] PRN Reason: As Directed Last Admin: 09/22/17 22:56 Dose: Not Given Piperacillin Sod/Tazobactam (Sod 2.25 gm/ Dextrose) 50 mls @ 100 mls/hr IV Q8H [facility] Last Admin: 09/23/17 05:15 Dose: 100 mls/hr Insulin Human Lispro (Humalog) 0 unit SQ [facility] PRN Reason: Protocol Last Admin: 09/23/17 07:15 Dose: Not Given Lactobacillus Rhamnosus (Culturelle) 1 cap PO BID [facility] Last Admin: 09/22/17 22:27 Dose: 1 cap Lorazepam (Ativan) 0.5 mg PO Q4HP PRN PRN Reason: ANXIETY/SEDATION Last Admin: 09/21/17 23:43 Dose: 0.5 mg Midodrine (Midodrine Hcl) 15 mg PO TID@0800,1200,1700 [facility] Last Admin: 09/23/17 07:15 Dose: 15 mg Aripiprazole [ Aripiprazole] 2 Mg Tablet 2 mg PO QDAY [facility] Last Admin: 09/22/17 09:10 Dose: 2 mg Ondansetron HCl (Zofran) 4 mg IV Q4-6HP PRN PRN Reason: Nausea And Vomiting Prednisone (Prednisone) 10 mg PO QAMCC [facility] Last Admin: 09/23/17 07:15 Dose: 10 mg Promethazine HCl (Phenergan) 12.5 mg IV Q6-8HP PRN PRN Reason: Nausea And Vomiting Senna (Senokot) 1 tab PO HS [facility] Last Admin: 09/22/17 22:30 Dose: Not Given Sevelamer Carbonate (Renvela) 800 mg PO TIDAC [facility] Last Admin: 09/23/17 07:15 Dose: 800 mg Sodium Chloride (Saline Flush) 10 ml IV Q8 [facility] Last Admin: 09/23/17 05:15 Dose: 10 ml Sodium Chloride (Saline Flush) 10 ml IV Q12 [facility] Last Admin: 09/22/17 22:31 Dose: Not Given Tramadol/Acetaminophen (Ultracet) 1 tab PO Q8HP PRN PRN Reason: Pain Last Admin: 09/22/17 22:27 Dose: 1 tab Trazodone HCl (Desyrel) 250 mg PO HS [facility] Last Admin: 09/22/17 22:26 Dose: 250 mg Vancomycin HCl (Vancomycin Oral Lizy) 250 mg PO QID [facility] Last Admin: 09/22/17 22:31 Dose: 250 mg Medical - PN: A/P - Time Spent With Patient Total time spent is greater than 50% in coordination of care (as documented) at patient's floor/unit and/or counseling patient: - Narrative A/P Narrative: A/P A/P Hypotension : multifactorial, due to infection, volume depletion vs related to ESRD stats/ endocrine abnormality Continue on Midodrine, on prednisone for now, off Florinef. 09/14 femoral artery cath placement: SBP about 10 mg higher than cuff. Removed after few hours IV steroids x 1 given 09/14 empirically. Pt feeling better On Prednisone 10 mg daily, pt to be discharged on 10mg daily of prednisone. Health care associated pneumonia: Blood culture sent, started on Vanco and Zosyn. cultures neg so far, day 3 of antibiotics 09/22/17 Repeat CXR today shows slight worsening of the left lung pneumonia. The patient continues to worsen may benefit from a CT scan. Small bowel obstruction? More likely C.dif colitis. Appreciate dr Ricketts's help. No obstruction. Symptoms resolving Diarrhea: positive for C dif toxin. Vanco po and Flagyl IV 09/09. Diarrhea resolved 09/14. flagyl was discontinued, but diarrhea later came back Dose of vancomycin increased to 250 on 09/20, continue po vancomycin 1 week post resolution of loose stools Start on po banatrol to help with stool consistency, Pt on probiotics. Start on fidaxomicin [deficid], today if patient does not improve consider getting a GI consult for possible stool transplant (09/23) Right knee bursitis/ Open wound: Possibly infected bursits vs hematoma vs reactionary swelling , get X Ray of the knee is reported negative. Wound inspection done with dr Pedraza 09/10. Appreciate wound care help + Wound, Knee/ elbow. MRSA pos. Most likely colonization vs infection. + Hypokalemia: replace K as needed + ESRD on HD, followed by Dr Reagan. + COPD: No wheezing on exam to continue bronchodilators, + Fibromyalgia/ Chr pain: On usual meds + CAD no chest pain, on plavix Hold Plavix 09/17, for upcoming HD placement after AV fistula ligation DVT hep sq DNR code status. Overall poor prognosis Procedures - Arterial Line Size (Gauge): 20
[2017-09-23] MEDS: VANCOMYCIN ORAL SOL 1,000 MG/10 ML BOTTLE PO SCH ×4 (09:22→22:13)
[2017-09-23] MEDS: ARIPIPRAZOLE 2 MG PO SCH (09:22)
[2017-09-23] MEDS: HEPARIN 5,000 UNIT/ML VIAL SQ SCH ×2 (09:23→22:10)
[2017-09-23] MEDS: LACTOBACILLUS 1 CAPSULE PO SCH ×2 (09:23→22:10)
[2017-09-23] MEDS: CYANOCOBALAMIN (VITAMIN B-12) 500 MCG TABLET PO SCH (09:23)
[2017-09-23] MEDS: GENTAMICIN SULFATE 40 MG, CLINDAMYCIN 300 MG, BACITRACIN 25,000 UNIT in SODIUM CHLORIDE... IRR SCH ×2 (09:24→22:14)
[2017-09-23] MEDS: FLUoxetine HCL 20 MG CAPSULE PO SCH (09:24)
[2017-09-23] MEDS: COLLAGENASE TOP OINT TUBE 30GM TOPICAL SCH ×2 (09:25→22:10)
[2017-09-23] MEDS: BUDESONIDE 0.5 MG/2 ML AMPUL.NEB NEB SCH ×2 (09:27→21:07)
[2017-09-23] MEDS: traMADol HCL/ACETAMINOPHEN 1 TAB TABLET PO PRN ×2 (12:23→22:10)
[2017-09-23] MEDS: traZODone HCL 50 MG TABLET PO SCH (22:09)
[2017-09-23] MEDS: LORazepam 0.5 MG TABLET PO PRN (22:10)
[2017-09-23] MEDS: SENNOSIDES 1 TABLET PO SCH (22:13)
[2017-09-24] MEDS: LORazepam 0.5 MG TABLET PO PRN (02:06)
[2017-09-24] MEDS: 0.9 % SODIUM CHLORIDE 10 ML SYRINGE IV SCH ×6 (05:33→21:43)
[2017-09-24] MEDS: PIPERACILLIN SODIUM/TAZOBACTAM 2.25 GM in DEXTROSE 5% IN WATER 50 ML IV SCH ×3 (05:33→21:41)
[2017-09-24 05:43] LABS: Basophils # (Auto) 0 K/mcL (0.0-0.3); Basophils % (Auto) 0.1 % (0.0-2.0); Eosinophils # (Auto) 0.5 K/mcL (0.0-0.7); Eosinophils % (Auto) 3.2 % (0.0-7.0); Granulocytes % (Auto) 75.5 % (38.0-78.0); Lymphocytes # (Auto) 2.2 K/mcL (1.5-4.8); Lymphocytes % (Auto) 14.4 % (15.5-49.0); Mean Cell Volume 114.9 fL (80.0-100.0); Mean Corpuscular HGB Conc 32.9 g/dL (31.0-36.0); Mean Corpuscular Hemoglobin 37.8 pg (26.0-34.0); Monocytes # (Auto) 1.1 K/mcL (0.1-0.9); Monocytes % (Auto) 6.8 % (1.0-12.0); Platelet Count 187 K/mcL (140-440); RBC 3.49 M/mcL (4.00-5.20); Red Cell Distribution Width 22.2 % (11.5-14.5)
[2017-09-24 06:25] LABS: ALT/SGPT 24 U/l (0-40); Albumin 3.2 gm/dL (3.2-5.2); Albumin/Globulin Ratio 1.1 (1.0-2.3); Alkaline Phosphatase 82 U/L (39-117); Bilirubin,Direct 0.2 mg/dL (0.0-0.3); Blood Urea Nitrogen 29 mg/dl (8-23); Gamma Glutamyl Transpeptidase 45 U/L (5-36); Uric Acid 4.8 mg/dL (2.5-8.0)
[2017-09-24] MEDS: INSULIN LISPRO 1 UNIT/0.01 ML UNIT SQ SCH ×4 (07:04→21:42)
[2017-09-24] MEDS: BUDESONIDE 0.5 MG/2 ML AMPUL.NEB NEB SCH ×2 (07:36→20:48)
[2017-09-24] MEDS: CYANOCOBALAMIN (VITAMIN B-12) 500 MCG TABLET PO SCH (09:30)
[2017-09-24] MEDS: HEPARIN 5,000 UNIT/ML VIAL SQ SCH ×2 (09:30→21:41)
[2017-09-24] MEDS: SEVELAMER 800 MG TABLET PO SCH ×3 (09:30→17:09)
[2017-09-24] MEDS: predniSONE 10 MG TABLET PO SCH (09:30)
[2017-09-24] MEDS: LACTOBACILLUS 1 CAPSULE PO SCH ×2 (09:30→21:41)
[2017-09-24] MEDS: FLUoxetine HCL 20 MG CAPSULE PO SCH (09:30)
[2017-09-24] MEDS: MIDODRINE 5 MG TABLET PO SCH ×3 (09:30→17:09)
[2017-09-24] MEDS: VANCOMYCIN ORAL SOL 1,000 MG/10 ML BOTTLE PO SCH ×4 (09:31→21:41)
[2017-09-24] MEDS: ARIPIPRAZOLE 2 MG PO SCH (09:31)
[2017-09-24] MEDS: GENTAMICIN SULFATE 40 MG, CLINDAMYCIN 300 MG, BACITRACIN 25,000 UNIT in SODIUM CHLORIDE... IRR SCH ×2 (13:55→21:43)
[2017-09-24] MEDS: COLLAGENASE TOP OINT TUBE 30GM TOPICAL SCH ×2 (13:55→21:42)
[2017-09-24] MEDS: traMADol HCL/ACETAMINOPHEN 1 TAB TABLET PO PRN (14:00)
--- NOTE | 2017-09-24 14:06 | Internal Med Progress Note ---
Medical - PN: Subj Patient information: Note initiated : 09/24/17 at 2:06 pm Service Date, if different from initiated Date: [] Patient: Naz Joseph a 72 y/o F admitted on 09/08/17 for Hypotension/Small Bowel Obstruction. Chief Complaint: [] Interval history: Ms. Joseph is a 72 year old Female with h/o end-stage renal disease on dialysis follows with Dr. REAGAN, the patient presents to the emergency room after being sent from dialysis to the ER for low blood pressure. According to the patient she has not been well for the last 2 weeks. She has been weak, she fell down reports this as a mechanical fall and injured the right side of the knee. She developed a wound for which she has been followed by the wound care clinic. According to the patient history the swab taken from that wound was growing MRSA, patient is on Bactrim and Keflex for same. The patient has been having ongoing diarrhea for approximately last 1 week liquid watery dark green 4-5 episodes every day, she has been getting weaker and more fatigued. She has had decreased appetite and has not been eating or drinking very well. She also admits to be having some nausea. The patient reports that she is not able to ambulate well and finds it difficult to even get up and move around. She presented for dialysis at which point in time she was noted to have low blood pressures with systolic in 70s, he was therefore sent to the emergency room for further evaluation. The patient also notes that she has subjective sensations of chills and intermittent shakes which have been progressively getting worse over the last weeks. Has any documented fever, has chronic headaches worse now, no dizziness , no changes in vision, has dry mouth no difficulty in swallowing no changes in hearing, no neck swelling or lymphadenopathy no bleeding. She has shortness of breath on exertion which is far worse than her baseline. She denies any chest pain, has nausea no abdominal pain she had diarrhea over the last 1 week. The patient denies any acute joint swelling or joint pain besides the right knee. In the emergency room the patient was afebrile, heart rate 67 blood pressure 78/ 61, saturating 98% on room air, White blood cell count was 8.8 hemoglobin 12.9 platelets 155, sodium 138, potassium 2.9, bicarbonate 29 creatinine 4.6 glucose level was 81. The patient's x-ray of the abdomen showed possible small bowel obstruction, CT scan of the abdomen was done with contrast after consultation with nephrology and was tentatively reported as small bowel obstruction. Dr. Ricketts the general surgeon was consulted from the emergency room. He would be seeing the patient. The patient's right knee had an ulcer with erythema extending on the anterior aspect of the knee, on my exam there was fluctuation likely infected bursitis Given low blood pressure, which remained low despite 2 L of fluid resuscitation possible abscess, small bowel obstruction the patient has been admitted to the ICU for further management. September 09 Patient seen examined, feeling better, on Levophed, patient has no acute complaints, appreciate help from surgery as well as nephrology. X-ray abdomen repeated today. Patient is scheduled for dialysis today. Central line placed yesterday, CVP is elevated at 15-18. Echo ordered. Cdif positive. September 10 On Vanco po for C dif. Liquid diarrhea. Rectal tube in. Still profuse diarrhea. Will add Metronidazole IV Examined knee R with dr Pedraza. Don't think it's infected, or requires systemic antibiotics. Case d/w nephrology (dr Bynum): HD for fluid overload today. Still on Levophed gtt. September 11 HD today. CVP was 20. Was drinking lots of fluid. Now on fluid restriction. Levophed at 10. Still significant stool output, but more formed. Considering placement of femoral a-line, but should wait till C.dif resolved. Will increase Florinef from 0.05 q 48 hr to 0.1 daily September 12 Less stool out put. Tolerating full liquid diet. CVP 15. Levophed 8-10 mcg. HD 2-3 L off. Discussed the many problems with patient. Limited treatment options available if hypotension persists. September 13 Abdominal pain and severe nausea this am. KUB: no evidence of obstruction On Levo 5 mcg/min September 14 Still requiring Levophed 5 - 10 mcg/min to keep MAP 65 Diarrhea resolved. Still on Vanco po and Flagyl IV for C dif colitis. Plan today: arterial fem cath placement September 15 A-line reading about 10 mm Hg higher than cuff Diarrhea resolved Feeling better September 16 Few BMs, soft Required Levophed 2 to keep MAP > 65. Patient states she hasn't been symptomatic with SBPs in 80's. Will discontinued Levo and advance activity to chair BID September 17 Day 8 of Vanco po and Flagyl IV for severe C.dif colitis Is doing better. SBP around 90's off Levophed x 24 hours. For HD today For ligation AV-fistula sometime this week and placement HD catheter. Will hold Plavix ? d/c CVP line September 19: CVP line removed Patient is doing ok. Very weak. Standing up with 2 p assist. No diarrhea, or nausea. Appetite fair. SBP in 90's. HR 80's September 20 Seen and examined, no acute overnight events, patient still very weak needing 2 people assist. She still has loose bowel movements. Times a day but no acute diarrhea. She denies any chest pain shortness of breath nausea vomiting. Her appetite is good. Labs show slight worsening of leukocytosis, patient is on steroids, also has C. difficile. Will increase the dose of vancomycin from 125 to 250mg 4 times daily. Will treat for at least 1 week after resolution of diarrhea. Clinically the patient feels well. september 21 She is seen and examined, no acute overnight events, she feels better however still weak requiring help for ambulation. She still has loose bowel movements. No changes since yesterday. She denies any other acute complaints. Leukocytosis is worsening. Chest x-ray done this morning shows new pneumonia on the left side with possible effusion. Patient's blood culture ordered started on IV vancomycin and Zosyn. Overall the patient feels well, denies any chest pain or shortness of breath. Will be dialyzed today according to nephrology. Change the dose of steroids from 40 mg to 10 mg september 22 Patient seen and examined no acute overnight events, blood pressure is stable. Remains on prednisone 10 mg as well as midodrine 50 mg 3 times a day. WBC count is slightly elevated compared to yesterday. Patient did get 40 mg of prednisone yesterday rather than 10. The patient feels well has no concerns or complaints. She still quite weak and needs assistance for transfers. She denies any cough no shortness of breath no fever no chills. Appreciate help of nephrology and management of dialysis related issues as well as blood pressure management. Patient remains on vancomycin and Zosyn for infection [pneumonia]. Patient to be dialyzed today. The patient is still complaining about diarrhea, will start her on banatrol September 23 Patient seen and examined, no acute overnight events, BP stable, tolerated dialysis well yesterday. The patient is still having significant diarrhea. She has no abdominal pain. WBC count is slightly trending down today. I will add deficid to her regimen in addition to vancomycin for C. difficile. If the patient's symptoms do not improve will consider GI consult for possible stool transplant. Patient continues to be on IV antibiotics for pneumonia. On chest x-ray done today shows slight worsening of her infiltrate. If the patient does not improve by tomorrow we will consider chest CT to further evaluate this. September 24- patient on vancomycin 500, 4 times a day as fidaxomycin not available to our pharmacy. white count downtrending. afebrile. Ongoing hemodialysis.stable hemodynamics. No concerns per staff. on Zosyn for pneumonia - Constitutional Vitals: Vital Signs Temp Pulse Resp BP Pulse Ox 98.1 F 63 18 96/66 99 09/24/17 12:00 09/24/17 07:43 09/24/17 12:00 09/24/17 12:00 09/24/17 12:00 Period Temp Pulse Resp BP Sys/Millan Pulse Ox Last 24 Hr 96.1 F-98.7 F 63-79 16-22 88-102/54-66 93-99 Intake and Output 09/24/17 09/24/17 09/24/17 05:59 13:59 21:59 Intake Total 300 / 300 410 / 410 Balance 300 / 300 410 / 410 Intake & Output: Intake & Output 09/24/17 09/24/17 09/24/17 05:59 13:59 21:59 Intake Total 300 / 300 410 / 410 Balance 300 / 300 410 / 410 Intake: IV 50 / 50 50 / 50 Zosyn 2.25 gm In Dextrose 5% in 50 / 50 50 / 50 Water 50 ml @ 100 mls/hr IV Q8H [facility] Rx#:[id number] Oral 250 / 250 360 / 360 Other: Meal Lunch Percent of Meal Consumed 10 Feeding Ability Assist with Tray Set Up Stool Size Small Stool Color Brown Green # of times incontinent of 1 Bowels General appearance: no acute distress Exam: Alert and oriented nonlabored breathing Nondistended abdomen No anxiety Medical - PN: Obj Da - Labs CBC & Chem 7: 09/24/17 04:40 09/24/17 04:40 Labs: Abnormal Lab Results 04/03/0509/24/17 09/23/17 04:40 04:40 04:15 WBC 15.4 H RBC 3.49 L MCV 114.9 H MCH 37.8 H RDW 22.2 H MPV 10.9 H Lymph % (Auto) 14.4 L Gran # 11.6 H Mccracken # (Auto) 1.1 H Sodium 131 L Potassium 3.2 L Chloride 87 L 89 L Carbon Dioxide Anion Gap 21.0 H 22.0 H BUN 29 H Creatinine 3.7 H 2.7 H Phosphorus 2.2 L GGT 45 H 52 H Lactate Dehydrogenase 275 H 262 H Triglycerides 170 H 09/23/17 09/22/17 09/22/17 04:15 04:35 04:35 WBC 15.4 H 16.3 H RBC 3.63 L 3.71 L MCV 114.1 H 114.1 H MCH 37.6 H 37.4 H RDW 21.4 H 20.5 H MPV 11.1 H 10.7 H Lymph % (Auto) 12.9 L Gran # 11.3 H 12.7 H Mccracken # (Auto) 1.0 H 1.2 H Sodium Potassium Chloride 90 L Carbon Dioxide 20 L Anion Gap 23.0 H BUN Creatinine 3.2 H Phosphorus 2.6 L GGT 51 H Lactate Dehydrogenase 294 H Triglycerides Meds: Medications Acetaminophen (Tylenol) 650 mg PO Q4-6HP PRN PRN Reason: PAIN/FEVER > 101 Budesonide (Pulmicort) 0.5 mg NEB Q12 [facility] Last Admin: 09/24/17 07:36 Dose: 0.5 mg Collagenase (Santyl Top Oint) 1 dose TOPICAL BID [facility] Last Admin: 09/24/17 13:55 Dose: 1 applic Cyanocobalamin (Vitamin B-12) 1,000 mcg PO DAILY [facility] Last Admin: 09/24/17 09:30 Dose: 1,000 mcg Dextrose (Dextrose 50%) 0 ml IV UD PRN PRN Reason: Hypoglycemia Diagnostic Test (Pha) (Accu-Chek) 1 each FS ACHS [facility] Last Admin: 09/24/17 12:03 Dose: 1 each Fluoxetine HCl (Prozac) 40 mg PO DAILY [facility] Last Admin: 09/24/17 09:30 Dose: 40 mg Heparin Sodium (Porcine) (Heparin) 5,000 unit SQ Q12 [facility] Last Admin: 09/24/17 09:30 Dose: 5,000 unit Gentamicin Sulfate 40 mg/Clindamycin Phosphate 300 mg/Bacitracin 25,000 unit/ Sodium Chloride 503 mls @ 0 mls/hr IRR BID [facility] PRN Reason: As Directed Last Admin: 09/24/17 13:55 Dose: 1 mls/hr Piperacillin Sod/Tazobactam (Sod 2.25 gm/ Dextrose) 50 mls @ 100 mls/hr IV Q8H [facility] Last Admin: 09/24/17 13:57 Dose: 100 mls/hr Insulin Human Lispro (Humalog) 0 unit SQ ACHS [facility] PRN Reason: Protocol Last Admin: 09/24/17 12:04 Dose: Not Given Lactobacillus Rhamnosus (Culturelle) 1 cap PO BID [facility] Last Admin: 09/24/17 09:30 Dose: 1 cap Lorazepam (Ativan) 0.5 mg PO Q4HP PRN PRN Reason: ANXIETY/SEDATION Last Admin: 09/24/17 02:06 Dose: 0.5 mg Midodrine (Midodrine Hcl) 15 mg PO TID@0800,1200,1700 [facility] Last Admin: 09/24/17 13:14 Dose: 15 mg Aripiprazole [ Aripiprazole] 2 Mg Tablet 2 mg PO QDAY [facility] Last Admin: 09/24/17 09:31 Dose: 2 mg Ondansetron HCl (Zofran) 4 mg IV Q4-6HP PRN PRN Reason: Nausea And Vomiting Prednisone (Prednisone) 10 mg PO QAMCC [facility] Last Admin: 09/24/17 09:30 Dose: 10 mg Promethazine HCl (Phenergan) 12.5 mg IV Q6-8HP PRN PRN Reason: Nausea And Vomiting Senna (Senokot) 1 tab PO HS [facility] Last Admin: 09/23/17 22:13 Dose: Not Given Sevelamer Carbonate (Renvela) 800 mg PO TIDAC [facility] Last Admin: 09/24/17 13:14 Dose: 800 mg Sodium Chloride (Saline Flush) 10 ml IV Q8 [facility] Last Admin: 09/24/17 09:31 Dose: 10 ml Sodium Chloride (Saline Flush) 10 ml IV Q12 [facility] Last Admin: 09/24/17 09:32 Dose: Not Given Tramadol/Acetaminophen (Ultracet) 1 tab PO Q8HP PRN PRN Reason: Pain Last Admin: 09/24/17 14:00 Dose: 1 tab Trazodone HCl (Desyrel) 250 mg PO HS [facility] Last Admin: 09/23/17 22:09 Dose: 250 mg Vancomycin HCl (Vancomycin Oral Lizy) 500 mg PO QID [facility] Last Admin: 09/24/17 13:14 Dose: 500 mg Medical - PN: A/P - Time Spent With Patient Total time spent is greater than 50% in coordination of care (as documented) at patient's floor/unit and/or counseling patient: 25 - 35 minutes - Narrative A/P Narrative: A/P A/P - 72-year-old with end-stage renal disease on hemodialysis admitted with healthcare associated pneumonia and developed C. difficile enterocolitis * C. difficile enterocolitis-on oral vancomycin * Healthcare associated pneumonia-on IV Zosyn day 4 x 8 * Severe sepsis secondary to combination of above * Hypotension : multifactorial, due to infection, volume depletion vs related to ESRD stats/ endocrine abnormality Continue on Midodrine, on prednisone for now, off Florinef. 09/14 femoral artery cath placement: SBP about 10 mg higher than cuff. Removed after few hours IV steroids x 1 given 09/14 empirically. Pt feeling better On Prednisone 10 mg daily, pt to be discharged on 10mg daily of prednisone. stable medical issues * Small bowel obstruction? More likely C.dif colitis. Appreciate dr Ricketts's help. No obstruction. Symptoms resolving * Right knee bursitis/ Open wound: Possibly infected bursits vs hematoma vs reactionary swelling , get X Ray of the knee is reported negative. Wound inspection done with dr Pedraza 09/10. Appreciate wound care help * ESRD on HD management nephrology * COPD on bronchodilators/oxygen * Viral myalgia/chronic pain on home meds * History of CAD on Plavix, currently held since or AV fistula ligation * DVT hep sq * DNR code status. plan * vancomycin 500 every 6 * Sepsis management per guidelines * Pre-existing medical condition management as above * Hemodialysis per nephrology Procedures - Arterial Line Size (Gauge): 20
[2017-09-24] MEDS: traZODone HCL 50 MG TABLET PO SCH (21:40)
[2017-09-24] MEDS: SENNOSIDES 1 TABLET PO SCH (21:43)
[2017-09-25] MEDS: 0.9 % SODIUM CHLORIDE 10 ML SYRINGE IV SCH ×5 (05:42→22:06)
[2017-09-25] MEDS: PIPERACILLIN SODIUM/TAZOBACTAM 2.25 GM in DEXTROSE 5% IN WATER 50 ML IV SCH ×3 (05:42→22:06)
[2017-09-25] MEDS: INSULIN LISPRO 1 UNIT/0.01 ML UNIT SQ SCH ×4 (07:14→20:53)
[2017-09-25] MEDS: SEVELAMER 800 MG TABLET PO SCH ×3 (07:53→18:16)
[2017-09-25] MEDS: predniSONE 10 MG TABLET PO SCH (07:54)
[2017-09-25] MEDS: MIDODRINE 5 MG TABLET PO SCH ×3 (07:54→18:16)
[2017-09-25] MEDS: ARIPIPRAZOLE 2 MG PO SCH (08:31)
[2017-09-25] MEDS: HEPARIN 5,000 UNIT/ML VIAL SQ SCH ×2 (08:31→20:51)
[2017-09-25] MEDS: LACTOBACILLUS 1 CAPSULE PO SCH ×2 (08:32→20:52)
[2017-09-25] MEDS: CYANOCOBALAMIN (VITAMIN B-12) 500 MCG TABLET PO SCH (08:32)
[2017-09-25] MEDS: FLUoxetine HCL 20 MG CAPSULE PO SCH (08:32)
[2017-09-25 08:38] LABS: Basophils # (Auto) 0 K/mcL (0.0-0.3); Basophils % (Auto) 0 % (0.0-2.0); Eosinophils # (Auto) 0.4 K/mcL (0.0-0.7); Eosinophils % (Auto) 2.9 % (0.0-7.0); Granulocytes % (Auto) 77.6 % (38.0-78.0); Lymphocytes # (Auto) 2.1 K/mcL (1.5-4.8); Lymphocytes % (Auto) 13.7 % (15.5-49.0); Mean Cell Volume 112.7 fL (80.0-100.0); Mean Corpuscular HGB Conc 32.9 g/dL (31.0-36.0); Monocytes # (Auto) 0.9 K/mcL (0.1-0.9); Monocytes % (Auto) 5.8 % (1.0-12.0); Platelet Count 147 K/mcL (140-440); RBC 3.56 M/mcL (4.00-5.20); Red Cell Distribution Width 20.7 % (11.5-14.5)
[2017-09-25] MEDS: VANCOMYCIN ORAL SOL 1,000 MG/10 ML BOTTLE PO SCH ×4 (08:38→22:21)
[2017-09-25 08:51] LABS: ALT/SGPT 21 U/l (0-40); Albumin 3.2 gm/dL (3.2-5.2); Albumin/Globulin Ratio 1.1 (1.0-2.3); Alkaline Phosphatase 68 U/L (39-117); Bilirubin,Direct < 0.2 mg/dL (0.0-0.3); Blood Urea Nitrogen 40 mg/dl (8-23); Gamma Glutamyl Transpeptidase 51 U/L (5-36)
[2017-09-25] MEDS: BUDESONIDE 0.5 MG/2 ML AMPUL.NEB NEB SCH ×2 (09:51→21:24)
[2017-09-25] MEDS: GENTAMICIN SULFATE 40 MG, CLINDAMYCIN 300 MG, BACITRACIN 25,000 UNIT in SODIUM CHLORIDE... IRR SCH ×2 (11:07→20:21)
[2017-09-25] MEDS: COLLAGENASE TOP OINT TUBE 30GM TOPICAL SCH ×2 (11:08→20:21)
--- NOTE | 2017-09-25 12:33 | Nephrology Progress Note ---
Subjective Patient information: Note initiated : 09/25/17 at 12:31 pm Service Date, if different from initiated Date: [] Patient: Naz Joseph 72 y/o F admitted on 09/08/17 for Hypotension/Small Bowel Obstruction. Chief Complaint: [] Principal diagnosis: End stage renal disease on chronic hemodialysis Interval history: no new issues feels ok intermittent SOB Edema much improved BP stable in 90's systolic eating ok some progress with PT still has significant diarrhea Pertinent ROS: as above Objective - Vital Signs Vital signs: Vital Signs Temp Pulse Pulse Pulse Resp BP BP 09/25/17 12:15 74 128/56 09/25/17 12:01 60 108/78 09/25/17 12:00 97.5 F 67 24 H 118/63 09/25/17 11:46 97.8 F 60 115/45 09/25/17 09:52 66 16 09/25/17 08:00 99.1 F H 62 22 09/25/17 03:02 98.0 F 09/25/17 03:01 96.3 F L 62 24 H 09/25/17 00:01 96.6 F L 09/25/17 00:00 96.2 F L 69 24 H 09/24/17 20:58 68 16 09/24/17 19:31 97.2 F 09/24/17 19:30 96.2 F L 72 24 H 09/24/17 15:46 97.9 F 18 BP Pulse Ox 09/25/17 12:15 09/25/17 12:01 09/25/17 12:00 97 09/25/17 11:46 09/25/17 09:52 09/25/17 08:00 104/76 09/25/17 03:02 09/25/17 03:01 96/54 91 09/25/17 00:01 09/25/17 00:00 92/58 98 09/24/17 20:58 09/24/17 19:31 09/24/17 19:30 100/64 98 09/24/17 15:46 96/58 97 Intake and Output 09/24/17 09/25/17 09/25/17 21:59 05:59 13:59 Intake Total 530 / 530 310 / 310 240 / 240 Balance 530 / 530 310 / 310 240 / 240 Intake: IV 50 / 50 50 / 50 Zosyn 2.25 gm In Dextrose 5% in 50 / 50 50 / 50 Water 50 ml @ 100 mls/hr IV Q8H [facility] Rx#:[id number] Oral 480 / 480 260 / 260 240 / 240 Other: Meal Angie Cookies Breakfast Percent of Meal Consumed 100% 100% Feeding Ability Independent Independent Stool Size Small Moderate Stool Color Brown Brown Green Stool Consistency Soft Soft # of times incontinent of 1 Bowels Weight 182 lb 8 oz Intake & Output: Intake & Output 09/24/17 09/25/17 09/25/17 21:59 05:59 13:59 Intake Total 530 / 530 310 / 310 240 / 240 Balance 530 / 530 310 / 310 240 / 240 Weight 182 lb 8 oz Intake: IV 50 / 50 50 / 50 Zosyn 2.25 gm In Dextrose 5% in 50 / 50 50 / 50 Water 50 ml @ 100 mls/hr IV Q8H [facility] Rx#:[id number] Oral 480 / 480 260 / 260 240 / 240 Other: Meal Angie Cookies Breakfast Percent of Meal Consumed 100% 100% Feeding Ability Independent Independent Stool Size Small Moderate Stool Color Brown Brown Green Stool Consistency Soft Soft # of times incontinent of 1 Bowels - General Appearance General appearance: appears started age, chronically ill, frail EENT: mucous membranes moist Neck: no JVD Respiratory: clear (but reduced breath sounds on left side ) Cardiology: edema (around thighs but much better), normal S1, normal S2 Gastrointestinal: no tenderness, no guarding Integumentary: warm and dry, ecchymotic Neurologic: alert and oriented x3 Musculoskeletal: no erythema, no cyanosis Psychiatric: mood/affect appropriate - Lab 09/25/17 06:30 09/25/17 06:30 Most recent lab results Calcium 9.3 mg/dl (8.6-10.4) 09/25/17 06:30 Phosphorus 4.0 mg/dL (2.7-4.5) 09/25/17 06:30 Magnesium 1.6 mg/dL (1.6-2.5) 09/25/17 06:30 Assessment and Plan (1) C. difficile colitis Status: Acute (2) Pneumonia Status: Acute Qualifiers: Laterality: bilateral Lung location: lower lobe of lung (3) ESRD (end stage renal disease) on dialysis HD today for 4 hrs using revaclear dialyser 3k/2.5ca dialysate, uf goal of 2- 2.5L as tolerated Hypotension: chronic, worse given acute issues A line shows 10 point difference in systolic BP ct midodrine to 15mg tid prednisone dose reduced to 10mg will maintain on t his dose low albumin: patient encouraged to try and eat on nepro/protein supplement as well Knee abscess: improving slowly with local wound care, followed by wound care team C diff: on antibiotics, still has diarrhea, on zosyn for PNA, ? this is not letting her cdiff resolve pneumonia on zosyn, ? needs CT chest, will defer to hospitalist Patient has overall very poor prognosis she has refused hospice on multiple occasions I have tried to address this with her She understands if her BP does not improve with ligation of AVF she may need to go comfort care as unable to dialysis as outpt, unable to achieve any UF will monitor closely for now given patient wishes Will follow along AVF ligation planned for next week in an attempt to increase her systolic BP as we get 10 point increase in her systolic BP on occluding AVF Appreciate hospitalist help in managing this patient Status: Chronic Priority: Medium
--- NOTE | 2017-09-25 15:04 | Internal Med Progress Note ---
Medical - PN: Subj Patient information: Note initiated : 09/25/17 at 3:00 pm Service Date, if different from initiated Date: [] Patient: Naz Joseph a 72 y/o F admitted on 09/08/17 for Hypotension/Small Bowel Obstruction. Chief Complaint: [] Interval history: Ms. Joseph is a 72 year old Female with h/o end-stage renal disease on dialysis follows with Dr. REAGAN, the patient presents to the emergency room after being sent from dialysis to the ER for low blood pressure. According to the patient she has not been well for the last 2 weeks. She has been weak, she fell down reports this as a mechanical fall and injured the right side of the knee. She developed a wound for which she has been followed by the wound care clinic. According to the patient history the swab taken from that wound was growing MRSA, patient is on Bactrim and Keflex for same. The patient has been having ongoing diarrhea for approximately last 1 week liquid watery dark green 4-5 episodes every day, she has been getting weaker and more fatigued. She has had decreased appetite and has not been eating or drinking very well. She also admits to be having some nausea. The patient reports that she is not able to ambulate well and finds it difficult to even get up and move around. She presented for dialysis at which point in time she was noted to have low blood pressures with systolic in 70s, he was therefore sent to the emergency room for further evaluation. The patient also notes that she has subjective sensations of chills and intermittent shakes which have been progressively getting worse over the last weeks. Has any documented fever, has chronic headaches worse now, no dizziness , no changes in vision, has dry mouth no difficulty in swallowing no changes in hearing, no neck swelling or lymphadenopathy no bleeding. She has shortness of breath on exertion which is far worse than her baseline. She denies any chest pain, has nausea no abdominal pain she had diarrhea over the last 1 week. The patient denies any acute joint swelling or joint pain besides the right knee. In the emergency room the patient was afebrile, heart rate 67 blood pressure 78/ 61, saturating 98% on room air, White blood cell count was 8.8 hemoglobin 12.9 platelets 155, sodium 138, potassium 2.9, bicarbonate 29 creatinine 4.6 glucose level was 81. The patient's x-ray of the abdomen showed possible small bowel obstruction, CT scan of the abdomen was done with contrast after consultation with nephrology and was tentatively reported as small bowel obstruction. Dr. Ricketts the general surgeon was consulted from the emergency room. He would be seeing the patient. The patient's right knee had an ulcer with erythema extending on the anterior aspect of the knee, on my exam there was fluctuation likely infected bursitis Given low blood pressure, which remained low despite 2 L of fluid resuscitation possible abscess, small bowel obstruction the patient has been admitted to the ICU for further management. September 09 Patient seen examined, feeling better, on Levophed, patient has no acute complaints, appreciate help from surgery as well as nephrology. X-ray abdomen repeated today. Patient is scheduled for dialysis today. Central line placed yesterday, CVP is elevated at 15-18. Echo ordered. Cdif positive. September 10 On Vanco po for C dif. Liquid diarrhea. Rectal tube in. Still profuse diarrhea. Will add Metronidazole IV Examined knee R with dr Pedraza. Don't think it's infected, or requires systemic antibiotics. Case d/w nephrology (dr Bynum): HD for fluid overload today. Still on Levophed gtt. September 11 HD today. CVP was 20. Was drinking lots of fluid. Now on fluid restriction. Levophed at 10. Still significant stool output, but more formed. Considering placement of femoral a-line, but should wait till C.dif resolved. Will increase Florinef from 0.05 q 48 hr to 0.1 daily September 12 Less stool out put. Tolerating full liquid diet. CVP 15. Levophed 8-10 mcg. HD 2-3 L off. Discussed the many problems with patient. Limited treatment options available if hypotension persists. September 13 Abdominal pain and severe nausea this am. KUB: no evidence of obstruction On Levo 5 mcg/min September 14 Still requiring Levophed 5 - 10 mcg/min to keep MAP 65 Diarrhea resolved. Still on Vanco po and Flagyl IV for C dif colitis. Plan today: arterial fem cath placement September 15 A-line reading about 10 mm Hg higher than cuff Diarrhea resolved Feeling better September 16 Few BMs, soft Required Levophed 2 to keep MAP > 65. Patient states she hasn't been symptomatic with SBPs in 80's. Will discontinued Levo and advance activity to chair BID September 17 Day 8 of Vanco po and Flagyl IV for severe C.dif colitis Is doing better. SBP around 90's off Levophed x 24 hours. For HD today For ligation AV-fistula sometime this week and placement HD catheter. Will hold Plavix ? d/c CVP line September 19: CVP line removed Patient is doing ok. Very weak. Standing up with 2 p assist. No diarrhea, or nausea. Appetite fair. SBP in 90's. HR 80's September 20 Seen and examined, no acute overnight events, patient still very weak needing 2 people assist. She still has loose bowel movements. Times a day but no acute diarrhea. She denies any chest pain shortness of breath nausea vomiting. Her appetite is good. Labs show slight worsening of leukocytosis, patient is on steroids, also has C. difficile. Will increase the dose of vancomycin from 125 to 250mg 4 times daily. Will treat for at least 1 week after resolution of diarrhea. Clinically the patient feels well. september 21 She is seen and examined, no acute overnight events, she feels better however still weak requiring help for ambulation. She still has loose bowel movements. No changes since yesterday. She denies any other acute complaints. Leukocytosis is worsening. Chest x-ray done this morning shows new pneumonia on the left side with possible effusion. Patient's blood culture ordered started on IV vancomycin and Zosyn. Overall the patient feels well, denies any chest pain or shortness of breath. Will be dialyzed today according to nephrology. Change the dose of steroids from 40 mg to 10 mg september 22 Patient seen and examined no acute overnight events, blood pressure is stable. Remains on prednisone 10 mg as well as midodrine 50 mg 3 times a day. WBC count is slightly elevated compared to yesterday. Patient did get 40 mg of prednisone yesterday rather than 10. The patient feels well has no concerns or complaints. She still quite weak and needs assistance for transfers. She denies any cough no shortness of breath no fever no chills. Appreciate help of nephrology and management of dialysis related issues as well as blood pressure management. Patient remains on vancomycin and Zosyn for infection [pneumonia]. Patient to be dialyzed today. The patient is still complaining about diarrhea, will start her on banatrol September 23 Patient seen and examined, no acute overnight events, BP stable, tolerated dialysis well yesterday. The patient is still having significant diarrhea. She has no abdominal pain. WBC count is slightly trending down today. I will add deficid to her regimen in addition to vancomycin for C. difficile. If the patient's symptoms do not improve will consider GI consult for possible stool transplant. Patient continues to be on IV antibiotics for pneumonia. On chest x-ray done today shows slight worsening of her infiltrate. If the patient does not improve by tomorrow we will consider chest CT to further evaluate this. September 24- patient on vancomycin 500, 4 times a day as fidaxomycin not available to our pharmacy. white count downtrending. afebrile. Ongoing hemodialysis.stable hemodynamics. No concerns per staff. on Zosyn for pneumonia September 25-persistent loose stools 3-4 a day. White count at 15,000 however plateauing in response to oral vancomycin.patient appears nontoxic. No overnight fever chills.ongoing hemodialysis per nephrology anticipate discharge once diarrhea clinically improved. on IV antibiotics for nosocomial pneumonia. on prednisone 10 mg. systolics at goal. - Constitutional Vitals: Vital Signs Temp Pulse Resp BP Pulse Ox 97.5 F 60 24 H 128/72 97 09/25/17 12:00 09/25/17 14:45 09/25/17 12:00 09/25/17 14:45 09/25/17 12:00 Period Temp Pulse Resp BP Sys/Millan Pulse Ox Last 24 Hr 96.2 F-99.1 F 60-90 16-24 92-144/34-78 91-98 Intake and Output 09/25/17 09/25/17 09/25/17 05:59 13:59 21:59 Intake Total 310 / 310 240 / 240 Balance 310 / 310 240 / 240 Intake & Output: Intake & Output 09/25/17 09/25/17 09/25/17 05:59 13:59 21:59 Intake Total 310 / 310 240 / 240 Balance 310 / 310 240 / 240 Intake: IV 50 / 50 Zosyn 2.25 gm In Dextrose 5% in 50 / 50 Water 50 ml @ 100 mls/hr IV Q8H [facility] Rx#:[id number] Oral 260 / 260 240 / 240 Other: Meal Angie Cookies Breakfast Percent of Meal Consumed 100% 100% Feeding Ability Independent Independent Stool Size Small Moderate Moderate Stool Color Brown Brown Brown Green Stool Consistency Soft Soft # of times incontinent of 1 1 Bowels General appearance: no acute distress Exam: alert oriented nonlabored breathing Ongoing hemodialysis Ambulating Touring diet Medical - PN: Obj Da - Labs CBC & Chem 7: 09/25/17 06:30 09/25/17 06:30 Labs: Abnormal Lab Results 09/25/17 09/25/17 09/24/17 06:30 06:30 04:40 WBC 15.3 H RBC 3.56 L MCV 112.7 H MCH 37.0 H RDW 20.7 H MPV 10.6 H Lymph % (Auto) 13.7 L Gran # 11.9 H Smith # (Auto) Sodium 130 L 131 L Potassium Chloride 88 L 87 L Carbon Dioxide 18 L Anion Gap 24.0 H 21.0 H BUN 40 H 29 H Creatinine 4.6 H 3.7 H Phosphorus GGT 51 H 45 H Lactate Dehydrogenase 327 H 275 H Triglycerides 09/24/17 09/23/17 09/23/17 04:40 04:15 04:15 WBC 15.4 H 15.4 H RBC 3.49 L 3.63 L MCV 114.9 H 114.1 H MCH 37.8 H 37.6 H RDW 22.2 H 21.4 H MPV 10.9 H 11.1 H Lymph % (Auto) 14.4 L Gran # 11.6 H 11.3 H Smith # (Auto) 1.1 H 1.0 H Sodium Potassium 3.2 L Chloride 89 L Carbon Dioxide Anion Gap 22.0 H BUN Creatinine 2.7 H Phosphorus 2.2 L GGT 52 H Lactate Dehydrogenase 262 H Triglycerides 170 H Meds: Medications Acetaminophen (Tylenol) 650 mg PO Q4-6HP PRN PRN Reason: PAIN/FEVER > 101 Budesonide (Pulmicort) 0.5 mg NEB Q12 [facility] Last Admin: 09/25/17 09:51 Dose: 0.5 mg Collagenase (Santyl Top Oint) 1 dose TOPICAL BID [facility] Last Admin: 09/25/17 11:08 Dose: 1 applic Cyanocobalamin (Vitamin B-12) 1,000 mcg PO DAILY [facility] Last Admin: 09/25/17 08:32 Dose: 1,000 mcg Dextrose (Dextrose 50%) 0 ml IV UD PRN PRN Reason: Hypoglycemia Diagnostic Test (Pha) (Accu-Chek) 1 each FS ACHS [facility] Last Admin: 09/25/17 07:52 Dose: 1 each Fluoxetine HCl (Prozac) 40 mg PO DAILY [facility] Last Admin: 09/25/17 08:32 Dose: 40 mg Heparin Sodium (Porcine) (Heparin) 5,000 unit SQ Q12 [facility] Last Admin: 09/25/17 08:31 Dose: 5,000 unit Gentamicin Sulfate 40 mg/Clindamycin Phosphate 300 mg/Bacitracin 25,000 unit/ Sodium Chloride 503 mls @ 0 mls/hr IRR BID [facility] PRN Reason: As Directed Last Admin: 09/25/17 11:07 Dose: 30 mls/hr Piperacillin Sod/Tazobactam (Sod 2.25 gm/ Dextrose) 50 mls @ 100 mls/hr IV Q8H [facility] Last Admin: 09/25/17 05:42 Dose: 100 mls/hr Insulin Human Lispro (Humalog) 0 unit SQ [facility] PRN Reason: Protocol Last Admin: 09/25/17 07:14 Dose: Not Given Lactobacillus Rhamnosus (Culturelle) 1 cap PO BID [facility] Last Admin: 09/25/17 08:32 Dose: 1 cap Lorazepam (Ativan) 0.5 mg PO Q4HP PRN PRN Reason: ANXIETY/SEDATION Last Admin: 09/24/17 02:06 Dose: 0.5 mg Midodrine (Midodrine Hcl) 15 mg PO TID@0800,1200,1700 [facility] Last Admin: 09/25/17 07:54 Dose: 15 mg Aripiprazole [ Aripiprazole] 2 Mg Tablet 2 mg PO QDAY [facility] Last Admin: 09/25/17 08:31 Dose: 2 mg Ondansetron HCl (Zofran) 4 mg IV Q4-6HP PRN PRN Reason: Nausea And Vomiting Prednisone (Prednisone) 10 mg PO QAMCC [facility] Last Admin: 09/25/17 07:54 Dose: 10 mg Promethazine HCl (Phenergan) 12.5 mg IV Q6-8HP PRN PRN Reason: Nausea And Vomiting Senna (Senokot) 1 tab PO HS [facility] Last Admin: 09/24/17 21:43 Dose: Not Given Sevelamer Carbonate (Renvela) 800 mg PO TIDAC [facility] Last Admin: 09/25/17 07:53 Dose: 800 mg Sodium Chloride (Saline Flush) 10 ml IV Q8 [facility] Last Admin: 09/25/17 05:42 Dose: 10 ml Sodium Chloride (Saline Flush) 10 ml IV Q12 [facility] Last Admin: 09/24/17 21:43 Dose: Not Given Tramadol/Acetaminophen (Ultracet) 1 tab PO Q8HP PRN PRN Reason: Pain Last Admin: 09/24/17 14:00 Dose: 1 tab Trazodone HCl (Desyrel) 250 mg PO HS [facility] Last Admin: 09/24/17 21:40 Dose: 250 mg Vancomycin HCl (Vancomycin Oral Lizy) 500 mg PO QID [facility] Last Admin: 09/25/17 08:38 Dose: 500 mg Medical - PN: A/P - Time Spent With Patient Total time spent is greater than 50% in coordination of care (as documented) at patient's floor/unit and/or counseling patient: 25 - 35 minutes - Narrative A/P Narrative: A/P A/P - 72-year-old with end-stage renal disease on hemodialysis admitted with healthcare associated pneumonia and developed C. difficile enterocolitis * C. difficile enterocolitis-on oral vancomycin 504 times a day * Healthcare associated pneumonia-on IV Zosyn day 5 x 8 * Severe sepsis.clinically improving. White count plateaued. * Hypotension : multifactorial, due to infection, volume depletion vs related to ESRD stats/ endocrine abnormality Continue on Midodrine, on prednisone 10 mgfor now, off Florinef. 09/14 femoral artery cath placement: SBP about 10 mg higher than cuff. Removed after few hours IV steroids x 1 given 09/14 empirically. Pt feeling better On Prednisone 10 mg daily, pt to be discharged on 10mg daily of prednisone. stable medical issues * Small bowel obstruction? clinically resolved. Colitis secondary to C. difficile. surgery on board. * Right knee bursitis/ Open wound: Possibly infected bursits vs hematoma vs reactionary swelling , get X Ray of the knee is reported negative. Wound inspection done with dr Pedraza 09/10. Appreciate wound care help * ESRD on HD management nephrology * COPD on bronchodilators/oxygen * Viral myalgia/chronic pain on home meds * History of CAD on Plavix, currently held since or AV fistula ligation * DVT hep sq * DNR code status. plan * vancomycin 500 every 6 orally * DC Zosyn 09/28 * continue prednisone 10 mg * Pre-existing medical condition management as above * Hemodialysis per nephrology Procedures - Arterial Line Size (Gauge): 20
[2017-09-25] MEDS: traMADol HCL/ACETAMINOPHEN 1 TAB TABLET PO PRN (18:40)
[2017-09-25] MEDS: traZODone HCL 50 MG TABLET PO SCH (20:52)
[2017-09-25] MEDS: SENNOSIDES 1 TABLET PO SCH (22:19)
[2017-09-26] MEDS: LORazepam 0.5 MG TABLET PO PRN (03:06)
[2017-09-26] MEDS: 0.9 % SODIUM CHLORIDE 10 ML SYRINGE IV SCH ×2 (05:49→08:00)
[2017-09-26] MEDS: PIPERACILLIN SODIUM/TAZOBACTAM 2.25 GM in DEXTROSE 5% IN WATER 50 ML IV SCH (05:49)
[2017-09-26 07:12] LABS: Basophils # (Auto) 0 K/mcL (0.0-0.3); Basophils % (Auto) 0.1 % (0.0-2.0); Eosinophils # (Auto) 0.3 K/mcL (0.0-0.7); Eosinophils % (Auto) 2.1 % (0.0-7.0); Granulocytes % (Auto) 74.8 % (38.0-78.0); Lymphocytes % (Auto) 14.9 % (15.5-49.0); Mean Cell Volume 113.7 fL (80.0-100.0); Mean Corpuscular HGB Conc 33.2 g/dL (31.0-36.0); Mean Corpuscular Hemoglobin 37.7 pg (26.0-34.0); Monocytes # (Auto) 1.1 K/mcL (0.1-0.9); Monocytes % (Auto) 8.1 % (1.0-12.0); Platelet Count 171 K/mcL (140-440); Red Cell Distribution Width 21.9 % (11.5-14.5)
[2017-09-26] MEDS: INSULIN LISPRO 1 UNIT/0.01 ML UNIT SQ SCH ×2 (07:22→12:38)
[2017-09-26 07:52] LABS: ALT/SGPT 20 U/l (0-40); Albumin 3.3 gm/dL (3.2-5.2); Albumin/Globulin Ratio 1.1 (1.0-2.3); Alkaline Phosphatase 66 U/L (39-117); Bilirubin,Direct 0.2 mg/dL (0.0-0.3); Blood Urea Nitrogen 23 mg/dl (8-23); Gamma Glutamyl Transpeptidase 51 U/L (5-36); Uric Acid 4.9 mg/dL (2.5-8.0)
[2017-09-26] MEDS: FLUoxetine HCL 20 MG CAPSULE PO SCH (07:58)
[2017-09-26] MEDS: HEPARIN 5,000 UNIT/ML VIAL SQ SCH (07:58)
[2017-09-26] MEDS: SEVELAMER 800 MG TABLET PO SCH ×2 (07:58→13:02)
[2017-09-26] MEDS: predniSONE 10 MG TABLET PO SCH (07:58)
[2017-09-26] MEDS: traMADol HCL/ACETAMINOPHEN 1 TAB TABLET PO PRN (07:58)
[2017-09-26] MEDS: MIDODRINE 5 MG TABLET PO SCH ×2 (07:58→13:02)
[2017-09-26] MEDS: GENTAMICIN SULFATE 40 MG, CLINDAMYCIN 300 MG, BACITRACIN 25,000 UNIT in SODIUM CHLORIDE... IRR SCH (07:59)
[2017-09-26] MEDS: LACTOBACILLUS 1 CAPSULE PO SCH (07:59)
[2017-09-26] MEDS: ARIPIPRAZOLE 2 MG PO SCH (07:59)
[2017-09-26] MEDS: VANCOMYCIN ORAL SOL 1,000 MG/10 ML BOTTLE PO SCH ×2 (08:00→13:04)
[2017-09-26] MEDS: COLLAGENASE TOP OINT TUBE 30GM TOPICAL SCH (08:01)
--- NOTE | 2017-09-26 08:53 | XRay Report ---
HISTORY: Reason for Exam:bilateral PNA FINDINGS: Lung volumes are small due to poor inspiration. There is partial consolidation of the basilar segments in the left lower lobe. Small left-sided pleural effusion is present. There is a thin band of discoid atelectasis overlying the right diaphragm, within the right lower lobe. Mid and upper lung mendez are clear. The heart size is normal and there is no pulmonary vascular congestion. Comparison with the prior exam from 09/23/17 shows improving aeration in the left lower lobe. Impression: improving atelectasis or pneumonia in the left lower lobe. Persistent small left-sided pleural effusion Interpreted and Authenticated by: Jose Rodriguez 09/26/17
[2017-09-26] MEDS: BUDESONIDE 0.5 MG/2 ML AMPUL.NEB NEB SCH (09:38)
--- NOTE | 2017-09-26 10:04 | Discharge Summary ---
Medical - DS: Prov Patient information: Note initiated : 09/26/17 at 10:00 am Service Date, if different from initiated Date: [] Patient: Naz Joseph 72 y/o F admitted on 09/08/17 for Hypotension/Small Bowel Obstruction. Chief Complaint: [] Date of admission: 09/08/17 17:20 Discharge date: 09/26/17 Primary care physician: Maribel Jaimes Consults: 09/08/17 16:02 Consult to Physician [CONS] Stat Comment: Consulting Provider: Meme Amin Reason For Exam: Physician to Consult Consult to Physician [CONS] Stat Comment: Consulting Provider: Chung Ricketts Reason For Exam: Physician to Consult 09/09/17 02:04 Consult to Physician [CONS] Routine Comment: Rt Knee Wound (being seen in wound clinic) Consulting Provider: Mainor Kinsey Reason For Exam: Physician to Consult 09/14/17 09:41 Consult to Physician [CONS] Routine Comment: Consulting Provider: Camilo Bynum Reason For Exam: Physician to Consult 09/18/17 10:21 Consult to Physician [CONS] Routine Comment: Consulting Provider: Radha Tripp Reason For Exam: Physician to Consult Medical - DS: Meds - Discharge Medications Prescriptions: Midodrine [Midodrine HCl] 15 mg PO TID@0800,1200,1700 #30 tab predniSONE [Prednisone] 10 mg PO QAMCC #30 tab traMADol HCL/ACETAMINOPHEN [Ultracet] 1 tab PO Q8HP PRN #20 tab PRN Reason: Pain Vancomycin Oral Lizy 500 mg PO QID #56 bottle Active and Home Medications: Home Medications cyanocobalamin (vit B-12) ER 1,000 mcg tablet,extended release 1,000 mcg PO QDAY tab 12/03/14 [History Confirmed 09/09/17 Last Taken 09/07/17 08:00] sevelamer carbonate 800 mg tablet 800 mg PO TIDAC 06/01/15 [History Confirmed Last Taken 09/07/17 18:00] trazodone 100 mg tablet 250 mg PO QHS 90 Days #225 tab 09/11/16 [Rx Confirmed Last Taken 09/07/17] Albuterol Sulfate [Ventolin] 2.5 mg NEB Q2HP PRN ampul.neb 05/20/17 [Rx Confirmed 09/09/17 Last Taken 09/07/17 18:00] Ipratropium/Albuterol [Duoneb] 3 ml NEB BID ampul.neb 05/20/17 [Rx Confirmed Last Taken 09/07/17 08:00] Acetaminophen [Tylenol] 650 mg PO Q4-6HP PRN tab 05/28/17 [Rx Confirmed Last Taken 09/07/17 08:00] Vitamin D3 1,000 unit PO DAILY tab 05/28/17 [Rx Confirmed 09/09/17 Last Taken 09/07/17 08:00] aripiprazole 2 mg tablet 2 mg PO QDAY 30 Days #30 tab 08/29/17 [Rx Confirmed Last Taken Unknown] budesonide 0.5 mg/2 mL suspension for nebulization 0.5 mg INHALATION Q12 #60 ml 08/29/17 [Rx Confirmed 09/09/17 Last Taken Unknown] clopidogrel 75 mg tablet 75 mg PO DAILY #30 tab 08/29/17 [Rx Confirmed 09/09/17 Last Taken 09/04/17] fluoxetine 40 mg capsule 40 mg PO QDAY #90 cap 08/29/17 [Rx Confirmed 09/09/17 Last Taken 09/08/17] nicotine 7 mg/24 hr daily transdermal patch 1 patch TRANSDERMA QDAY #30 each [Rx Confirmed 09/09/17 Last Taken 09/06/17 08:00] wheelchair See Dose Instructions .ROUTE .MEDSUPPLY #1 each 08/29/17 [Rx Confirmed 09/03/17 Last Taken Unknown] Sennosides [Senna] 1 tab PO HS 09/09/17 [History Confirmed 09/09/17 Last Taken Unknown] Sennosides [Senokot] 2 tab PO DAILY 09/09/17 [History Confirmed 09/09/17 Last Taken 09/07/17] Bacitracin 25,000 unit IRR BID vial 09/26/17 [Rx Last Taken Unknown] Clindamycin [Cleocin] 300 mg IRR BID vial 09/26/17 [Rx Last Taken Unknown] Gentamicin Sulfate 40 mg IRR BID vial 09/26/17 [Rx Last Taken Unknown] LORazepam [Ativan] 0.5 mg PO Q4HP PRN tablet 09/26/17 [Rx Last Taken Unknown] Midodrine [Midodrine HCl] 15 mg PO TID@0800,1200,1700 #30 tab 09/26/17 [Rx Last Taken Unknown] Vancomycin Oral Lizy 500 mg PO QID #56 bottle 09/26/17 [Rx Last Taken Unknown] predniSONE [Prednisone] 10 mg PO QAMCC #30 tab 09/26/17 [Rx Last Taken Unknown] traMADol HCL/ACETAMINOPHEN [Ultracet] 1 tab PO Q8HP PRN #20 tab 09/26/17 [Rx Last Taken Unknown] Medical - DS: Hosp Hospital course: DISCHARGE DIAGNOSIS A/P - 72-year-old with end-stage renal disease on hemodialysis admitted with healthcare associated pneumonia and developed C. difficile enterocolitis * C. difficile enterocolitis-on oral vancomycin 500- 4 times a day. clinically improved. Continue additional 14 days oral vancomycin * Healthcare associated pneumonia-resolved. DC antibiotics * Severe sepsis.clinically resolved * Hypotension : multifactorial, due to infection, volume depletion vs related to ESRD stats/ endocrine abnormality. currently on midodrine 15 3 times a day / prednisone 10 mg daily as per nephrology * Small bowel obstruction? clinically resolved. * Right knee bursitis/ Open wound: Possibly infected bursits vs hematoma vs reactionary swelling , get X Ray of the knee is reported negative. Wound inspection done with dr Pedraza 09/10. Appreciate wound care help. continue wound care per wound nurse * ESRD on HD management nephrology * chronic pain on tramadol/codeine combination per nephrology. DC'd hydromorphone * COPD on bronchodilators/oxygen * history of anxiety disorder on fluoxetine/trazodone/lorazepam * History of CAD on Plavix, BRIEF HOSPITAL COURSE Ms. Joseph is a 72 year old Female with h/o end-stage renal disease on dialysis follows with Dr. REAGAN, the patient presents to the emergency room after being sent from dialysis to the ER for low blood pressure. According to the patient she has not been well for the last 2 weeks. She has been weak, she fell down reports this as a mechanical fall and injured the right side of the knee. She developed a wound for which she has been followed by the wound care clinic. According to the patient history the swab taken from that wound was growing MRSA, patient is on Bactrim and Keflex for same. The patient has been having ongoing diarrhea for approximately last 1 week liquid watery dark green 4-5 episodes every day, she has been getting weaker and more fatigued. She has had decreased appetite and has not been eating or drinking very well. She also admits to be having some nausea. The patient reports that she is not able to ambulate well and finds it difficult to even get up and move around. She presented for dialysis at which point in time she was noted to have low blood pressures with systolic in 70s, he was therefore sent to the emergency room for further evaluation. The patient also notes that she has subjective sensations of chills and intermittent shakes which have been progressively getting worse over the last weeks. Has any documented fever, has chronic headaches worse now, no dizziness , no changes in vision, has dry mouth no difficulty in swallowing no changes in hearing, no neck swelling or lymphadenopathy no bleeding. She has shortness of breath on exertion which is far worse than her baseline. She denies any chest pain, has nausea no abdominal pain she had diarrhea over the last 1 week. The patient denies any acute joint swelling or joint pain besides the right knee. In the emergency room the patient was afebrile, heart rate 67 blood pressure 78/ 61, saturating 98% on room air, White blood cell count was 8.8 hemoglobin 12.9 platelets 155, sodium 138, potassium 2.9, bicarbonate 29 creatinine 4.6 glucose level was 81. The patient's x-ray of the abdomen showed possible small bowel obstruction, CT scan of the abdomen was done with contrast after consultation with nephrology and was tentatively reported as small bowel obstruction. Dr. Ricketts the general surgeon was consulted from the emergency room. He would be seeing the patient. The patient's right knee had an ulcer with erythema extending on the anterior aspect of the knee, on my exam there was fluctuation likely infected bursitis Given low blood pressure, which remained low despite 2 L of fluid resuscitation possible abscess, small bowel obstruction the patient has been admitted to the ICU for further management. September 09 Patient seen examined, feeling better, on Levophed, patient has no acute complaints, appreciate help from surgery as well as nephrology. X-ray abdomen repeated today. Patient is scheduled for dialysis today. Central line placed yesterday, CVP is elevated at 15-18. Echo ordered. Cdif positive. September 10 On Vanco po for C dif. Liquid diarrhea. Rectal tube in. Still profuse diarrhea. Will add Metronidazole IV Examined knee R with dr Pedraza. Don't think it's infected, or requires systemic antibiotics. Case d/w nephrology (dr Bynum): HD for fluid overload today. Still on Levophed gtt. September 11 HD today. CVP was 20. Was drinking lots of fluid. Now on fluid restriction. Levophed at 10. Still significant stool output, but more formed. Considering placement of femoral a-line, but should wait till C.dif resolved. Will increase Florinef from 0.05 q 48 hr to 0.1 daily September 12 Less stool out put. Tolerating full liquid diet. CVP 15. Levophed 8-10 mcg. HD 2-3 L off. Discussed the many problems with patient. Limited treatment options available if hypotension persists. September 13 Abdominal pain and severe nausea this am. KUB: no evidence of obstruction On Levo 5 mcg/min September 14 Still requiring Levophed 5 - 10 mcg/min to keep MAP 65 Diarrhea resolved. Still on Vanco po and Flagyl IV for C dif colitis. Plan today: arterial fem cath placement September 15 A-line reading about 10 mm Hg higher than cuff Diarrhea resolved Feeling better September 16 Few BMs, soft Required Levophed 2 to keep MAP > 65. Patient states she hasn't been symptomatic with SBPs in 80's. Will discontinued Levo and advance activity to chair BID September 17 Day 8 of Vanco po and Flagyl IV for severe C.dif colitis Is doing better. SBP around 90's off Levophed x 24 hours. For HD today For ligation AV-fistula sometime this week and placement HD catheter. Will hold Plavix ? d/c CVP line September 19: CVP line removed Patient is doing ok. Very weak. Standing up with 2 p assist. No diarrhea, or nausea. Appetite fair. SBP in 90's. HR 80's September 20 Seen and examined, no acute overnight events, patient still very weak needing 2 people assist. She still has loose bowel movements. Times a day but no acute diarrhea. She denies any chest pain shortness of breath nausea vomiting. Her appetite is good. Labs show slight worsening of leukocytosis, patient is on steroids, also has C. difficile. Will increase the dose of vancomycin from 125 to 250mg 4 times daily. Will treat for at least 1 week after resolution of diarrhea. Clinically the patient feels well. september 21 She is seen and examined, no acute overnight events, she feels better however still weak requiring help for ambulation. She still has loose bowel movements. No changes since yesterday. She denies any other acute complaints. Leukocytosis is worsening. Chest x-ray done this morning shows new pneumonia on the left side with possible effusion. Patient's blood culture ordered started on IV vancomycin and Zosyn. Overall the patient feels well, denies any chest pain or shortness of breath. Will be dialyzed today according to nephrology. Change the dose of steroids from 40 mg to 10 mg september 22 Patient seen and examined no acute overnight events, blood pressure is stable. Remains on prednisone 10 mg as well as midodrine 50 mg 3 times a day. WBC count is slightly elevated compared to yesterday. Patient did get 40 mg of prednisone yesterday rather than 10. The patient feels well has no concerns or complaints. She still quite weak and needs assistance for transfers. She denies any cough no shortness of breath no fever no chills. Appreciate help of nephrology and management of dialysis related issues as well as blood pressure management. Patient remains on vancomycin and Zosyn for infection [pneumonia]. Patient to be dialyzed today. The patient is still complaining about diarrhea, will start her on banatrol September 23 Patient seen and examined, no acute overnight events, BP stable, tolerated dialysis well yesterday. The patient is still having significant diarrhea. She has no abdominal pain. WBC count is slightly trending down today. I will add deficid to her regimen in addition to vancomycin for C. difficile. If the patient's symptoms do not improve will consider GI consult for possible stool transplant. Patient continues to be on IV antibiotics for pneumonia. On chest x-ray done today shows slight worsening of her infiltrate. If the patient does not improve by tomorrow we will consider chest CT to further evaluate this. September 24- patient on vancomycin 500, 4 times a day as fidaxomycin not available to our pharmacy. white count downtrending. afebrile. Ongoing hemodialysis.stable hemodynamics. No concerns per staff. on Zosyn for pneumonia September 25-persistent loose stools 3-4 a day. White count at 15,000 however plateauing in response to oral vancomycin.patient appears nontoxic. No overnight fever chills.ongoing hemodialysis per nephrology anticipate discharge once diarrhea clinically improved. on IV antibiotics for nosocomial pneumonia. on prednisone 10 mg. systolics at goal. -September 26-patient doing a lot better. Improved frequency of stooling. More formed stool. On vancomycin 506 hourly. Discharging to SNF for continued hemodialysis and wound care. Currently on prednisone/midodrine for hypotension which has since improved during hospitalization. Patient is back to baseline. Ambulating tolerating physical therapy and diet. We'll continue follow-up with nephrology for hemodialysis/PCP and wound care. Detailed instructions as below Discharge diagnosis: . - Time Spent with Patient Total time spent providing and/or coordinating discharge services: Greater than 30 minutes Medical - DS: Exam - Constitutional Vitals: Vital Signs Temp Pulse Pulse Resp BP BP BP 09/26/17 09:47 74 16 09/26/17 07:23 97.5 F 67 16 09/26/17 03:44 96.4 F L 68 24 H 92/56 09/26/17 00:00 97.4 F 66 20 90/50 09/25/17 20:00 97.7 F 65 22 90/58 09/25/17 15:45 96.8 F L 69 100/56 09/25/17 15:37 97.8 F 68 24 H 123/63 09/25/17 15:30 68 123/63 09/25/17 15:15 70 121/56 09/25/17 15:00 67 119/63 09/25/17 14:45 60 128/72 09/25/17 14:30 79 118/78 09/25/17 14:15 90 114/40 09/25/17 14:00 65 112/48 09/25/17 13:45 64 106/44 09/25/17 13:31 78 109/66 09/25/17 13:15 65 104/34 09/25/17 13:03 80 144/64 09/25/17 12:45 73 114/56 09/25/17 12:32 81 124/51 09/25/17 12:15 74 128/56 09/25/17 12:01 60 108/78 09/25/17 12:00 97.5 F 67 24 H 118/63 09/25/17 11:46 97.8 F 60 115/45 BP Pulse Ox 09/26/17 09:47 09/26/17 07:23 124/60 98 09/26/17 03:44 97 09/26/17 00:00 95 09/25/17 20:00 97 09/25/17 15:45 09/25/17 15:37 96 09/25/17 15:30 09/25/17 15:15 09/25/17 15:00 09/25/17 14:45 09/25/17 14:30 09/25/17 14:15 09/25/17 14:00 09/25/17 13:45 09/25/17 13:31 09/25/17 13:15 09/25/17 13:03 09/25/17 12:45 09/25/17 12:32 09/25/17 12:15 09/25/17 12:01 09/25/17 12:00 97 09/25/17 11:46 Intake and Output 09/25/17 09/26/17 09/26/17 21:59 05:59 13:59 Intake Total 550 / 550 280 / 280 50 / 50 Output Total 4400 / 4400 Balance -3850 / -3850 280 / 280 50 / 50 Intake: IV 50 / 50 50 / 50 50 / 50 Zosyn 2.25 gm In Dextrose 5% in 50 / 50 50 / 50 50 / 50 Water 50 ml @ 100 mls/hr IV Q8H [facility] Rx#:[id number] Oral 500 / 500 230 / 230 Output: Hemodialysis UF 4400 / 4400 Other: Meal Dinner Lg fruit cup Percent of Meal Consumed 90% 100% Feeding Ability Independent Independent Stool Size Smear Moderate Stool Color Brown Brown Stool Consistency Soft Liquid # Bowel Movements 1 # of times incontinent of 2 1 Bowels Weight 174 lb 8 oz Medical - DS: Data Labs on day of discharge: Labs from last 24 hours 09/26/17 09/26/17 06:32 06:32 WBC 13.6 H RBC 3.50 L Hgb 13.2 Hct 39.8 MCV 113.7 H MCH 37.7 H MCHC 33.2 RDW 21.9 H Plt Count 171 MPV 10.7 H Gran % 74.8 Lymph % (Auto) 14.9 L Rice % (Auto) 8.1 Eos % (Auto) 2.1 Baso % (Auto) 0.1 Gran # 10.2 H Lymph # (Auto) 2.0 Rice # (Auto) 1.1 H Eos # (Auto) 0.3 Baso # (Auto) 0 Sodium 132 L Potassium 3.2 L Chloride 88 L Carbon Dioxide 21 L Anion Gap 23.0 H BUN 23 Creatinine 3.4 H GFR Calculation 13 Glucose 100 Uric Acid 4.9 Calcium 9.4 Phosphorus 3.9 Magnesium 1.7 Total Bilirubin 0.6 Direct Bilirubin 0.2 GGT 51 H AST 21 ALT 20 Alkaline Phosphatase 66 Lactate Dehydrogenase 282 H Total Protein 6.3 Albumin 3.3 Globulin 3.0 Albumin/Globulin Ratio 1.1 Triglycerides 158 H Preliminary micro results at discharge 09/21/17 10:05 Blood Culture - Preliminary Blood 09/21/17 10:40 Blood Culture - Preliminary Blood Medical - DS: A/P - Patient/Caregiver Discharge Instructions Activity: as per physical therapy, increase activity as tolerated Diet: Renal/Consistent Carbs Additional Instructions: Follow-up PCP in 5 days. continue wound care per wound nurse recommendations current imaging planes/prednisone per nephrology Hemodialysis per nephrology fluid restriction to 32 ounces a day Renal diet I recommend [facility] physician to check CBC BMP UA as a posthospital follow-up and Chest x-ray in 1 week. Antibiotics for 14 days vancomycin by mouth every 6 Continue fall precautions discontinue oral hydromorphone per nephrology recommendations daily weights measurements and take additional 40 mg Lasix for 3 days if weight gain over 4 pounds over baseline or worsening shortness of breath and call primary care physician if inadequate response to Lasix Continue aggressive PT OT evaluation and treatment at [facility]. ST eval and treatment if indicated All meals on chair sitting upright at 90 degrees to prevent aspiration Return to ER if worsening fever chills shortness of breath, diarrhea, bleeding Refrain from smoking and alcohol Continue diet and activity as advised Discussed importance of medication adherence Please review medication list with patient prior to discharge Please schedule follow-up with PCP/Providers prior to discharge and provide printouts Portions of this chart may have been created with [employer] voice recognition software. Occasional wrong-word or ?sound-like? substitutions may have occurred due to the inherent limitations of voice recognition software. Please read the chart carefully and recognize, using context, where the substitutions have occurred. CC- PCP Prescriptions: Midodrine [Midodrine HCl] 15 mg PO TID@0800,1200,1700 #30 tab predniSONE [Prednisone] 10 mg PO QAMCC #30 tab traMADol HCL/ACETAMINOPHEN [Ultracet] 1 tab PO Q8HP PRN #20 tab PRN Reason: Pain Vancomycin Oral Lizy 500 mg PO QID #56 bottle - Follow up Plan Follow up with: Maribel Jaimes DNP, [employer] [Primary Care Provider] - Mainor Kinsey MD [Physician] - (Follow up at clinic 1 week after discharge- (patient already established there)) Disposition: Xfer SNF Prognosis: Serious Rehab Potential: Serious I certify that the patient requires SNF services: Yes Overall status at discharge: patient is progressing back to baseline
[2017-09-26] MEDS: CYANOCOBALAMIN (VITAMIN B-12) 500 MCG TABLET PO SCH (13:01)
--- NOTE | 2017-10-08 15:11 | Internal Med Progress Note ---
Medical - PN: Subj Patient information: Note initiated : 10/08/17 at 2:54 pm Service Date, if different from initiated Date: [] Patient: Naz Joseph a 72 y/o F admitted on 09/08/17 for Hypotension/Small Bowel Obstruction. Chief Complaint: [] Interval history: Ms. Joseph is a 72 year old Female with h/o end-stage renal disease on dialysis follows with Dr. REAGAN, the patient presents to the emergency room after being sent from dialysis to the ER for low blood pressure. According to the patient she has not been well for the last 2 weeks. She has been weak, she fell down reports this as a mechanical fall and injured the right side of the knee. She developed a wound for which she has been followed by the wound care clinic. According to the patient history the swab taken from that wound was growing MRSA, patient is on Bactrim and Keflex for same. The patient has been having ongoing diarrhea for approximately last 1 week liquid watery dark green 4-5 episodes every day, she has been getting weaker and more fatigued. She has had decreased appetite and has not been eating or drinking very well. She also admits to be having some nausea. The patient reports that she is not able to ambulate well and finds it difficult to even get up and move around. She presented for dialysis at which point in time she was noted to have low blood pressures with systolic in 70s, he was therefore sent to the emergency room for further evaluation. The patient also notes that she has subjective sensations of chills and intermittent shakes which have been progressively getting worse over the last weeks. Has any documented fever, has chronic headaches worse now, no dizziness , no changes in vision, has dry mouth no difficulty in swallowing no changes in hearing, no neck swelling or lymphadenopathy no bleeding. She has shortness of breath on exertion which is far worse than her baseline. She denies any chest pain, has nausea no abdominal pain she had diarrhea over the last 1 week. The patient denies any acute joint swelling or joint pain besides the right knee. In the emergency room the patient was afebrile, heart rate 67 blood pressure 78/ 61, saturating 98% on room air, White blood cell count was 8.8 hemoglobin 12.9 platelets 155, sodium 138, potassium 2.9, bicarbonate 29 creatinine 4.6 glucose level was 81. The patient's x-ray of the abdomen showed possible small bowel obstruction, CT scan of the abdomen was done with contrast after consultation with nephrology and was tentatively reported as small bowel obstruction. Dr. Ricketts the general surgeon was consulted from the emergency room. He would be seeing the patient. The patient's right knee had an ulcer with erythema extending on the anterior aspect of the knee, on my exam there was fluctuation likely infected bursitis Given low blood pressure, which remained low despite 2 L of fluid resuscitation possible abscess, small bowel obstruction the patient has been admitted to the ICU for further management. September 09 Patient seen examined, feeling better, on Levophed, patient has no acute complaints, appreciate help from surgery as well as nephrology. X-ray abdomen repeated today. Patient is scheduled for dialysis today. Central line placed yesterday, CVP is elevated at 15-18. Echo ordered. Cdif positive. September 10 On Vanco po for C dif. Liquid diarrhea. Rectal tube in. Still profuse diarrhea. Will add Metronidazole IV Examined knee R with dr Pedraza. Don't think it's infected, or requires systemic antibiotics. Case d/w nephrology (dr Bynum): HD for fluid overload today. Still on Levophed gtt. September 11 HD today. CVP was 20. Was drinking lots of fluid. Now on fluid restriction. Levophed at 10. Still significant stool output, but more formed. Considering placement of femoral a-line, but should wait till C.dif resolved. Will increase Florinef from 0.05 q 48 hr to 0.1 daily September 12 Less stool out put. Tolerating full liquid diet. CVP 15. Levophed 8-10 mcg. HD 2-3 L off. Discussed the many problems with patient. Limited treatment options available if hypotension persists. September 13 Abdominal pain and severe nausea this am. KUB: no evidence of obstruction On Levo 5 mcg/min September 14 Still requiring Levophed 5 - 10 mcg/min to keep MAP 65 Diarrhea resolved. Still on Vanco po and Flagyl IV for C dif colitis. Plan today: arterial fem cath placement September 15 A-line reading about 10 mm Hg higher than cuff Diarrhea resolved Feeling better September 16 Few BMs, soft Required Levophed 2 to keep MAP > 65. Patient states she hasn't been symptomatic with SBPs in 80's. Will discontinued Levo and advance activity to chair BID September 17 Day 8 of Vanco po and Flagyl IV for severe C.dif colitis Is doing better. SBP around 90's off Levophed x 24 hours. For HD today For ligation AV-fistula sometime this week and placement HD catheter. Will hold Plavix ? d/c CVP line September 19: CVP line removed Patient is doing ok. Very weak. Standing up with 2 p assist. No diarrhea, or nausea. Appetite fair. SBP in 90's. HR 80's 09/19: WOUND CARE VISIT: Pt and wounds are doing well, will add chemical debridement topical medication to eschar. See orders. September 20 Seen and examined, no acute overnight events, patient still very weak needing 2 people assist. She still has loose bowel movements. Times a day but no acute diarrhea. She denies any chest pain shortness of breath nausea vomiting. Her appetite is good. Labs show slight worsening of leukocytosis, patient is on steroids, also has C. difficile. Will increase the dose of vancomycin from 125 to 250mg 4 times daily. Will treat for at least 1 week after resolution of diarrhea. Clinically the patient feels well. september 21 She is seen and examined, no acute overnight events, she feels better however still weak requiring help for ambulation. She still has loose bowel movements. No changes since yesterday. She denies any other acute complaints. Leukocytosis is worsening. Chest x-ray done this morning shows new pneumonia on the left side with possible effusion. Patient's blood culture ordered started on IV vancomycin and Zosyn. Overall the patient feels well, denies any chest pain or shortness of breath. Will be dialyzed today according to nephrology. Change the dose of steroids from 40 mg to 10 mg september 22 Patient seen and examined no acute overnight events, blood pressure is stable. Remains on prednisone 10 mg as well as midodrine 50 mg 3 times a day. WBC count is slightly elevated compared to yesterday. Patient did get 40 mg of prednisone yesterday rather than 10. The patient feels well has no concerns or complaints. She still quite weak and needs assistance for transfers. She denies any cough no shortness of breath no fever no chills. Appreciate help of nephrology and management of dialysis related issues as well as blood pressure management. Patient remains on vancomycin and Zosyn for infection [pneumonia]. Patient to be dialyzed today. The patient is still complaining about diarrhea, will start her on banatrol September 23 Patient seen and examined, no acute overnight events, BP stable, tolerated dialysis well yesterday. The patient is still having significant diarrhea. She has no abdominal pain. WBC count is slightly trending down today. I will add deficid to her regimen in addition to vancomycin for C. difficile. If the patient's symptoms do not improve will consider GI consult for possible stool transplant. Patient continues to be on IV antibiotics for pneumonia. On chest x-ray done today shows slight worsening of her infiltrate. If the patient does not improve by tomorrow we will consider chest CT to further evaluate this. September 24- patient on vancomycin 500, 4 times a day as fidaxomycin not available to our pharmacy. white count downtrending. afebrile. Ongoing hemodialysis.stable hemodynamics. No concerns per staff. on Zosyn for pneumonia September 25-persistent loose stools 3-4 a day. White count at 15,000 however plateauing in response to oral vancomycin.patient appears nontoxic. No overnight fever chills.ongoing hemodialysis per nephrology anticipate discharge once diarrhea clinically improved. on IV antibiotics for nosocomial pneumonia. on prednisone 10 mg. systolics at goal. - Constitutional Vitals: Vital Signs Temp Pulse Resp BP Pulse Ox 97.5 F 67 16 124/60 98 09/26/17 13:19 09/26/17 13:19 09/26/17 13:19 09/26/17 13:19 09/26/17 13:19 Medical - PN: Obj Da - Labs CBC & Chem 7: 09/26/17 06:32 09/26/17 06:32 Medical - PN: A/P - Time Spent With Patient Total time spent is greater than 50% in coordination of care (as documented) at patient's floor/unit and/or counseling patient: Procedures - Arterial Line Size (Gauge): 20
== END 2017-09-26 14:00 | DRG 871 ==
LOC: ED 12:09 → MEDSUR 17:20 → ICU 17:21 → MEDSUR 09-19 17:25
PROVIDERS: ADMIT Internal Medicine; ATTEND Internal Medicine

== ENCOUNTER 2017-10-03 10:39 | Inpatient (IN) ==
[2017-10-03] MEDS ORDERED: ACETAMINOPHEN 325 MG TABLET PO ONE ×2 (11:29→11:32)
--- NOTE | 2017-10-03 11:42 | Emergency Department Note ---
Nausea/Vomiting/Diarrhea HPI - General Chief complaint: Nausea/Vomiting/Diarrhea Stated complaint: Diarrhea Time Seen by Provider: 10/03/17 11:13 Source: patient Mode of arrival: wheelchair Limitations: no limitations - History of Present Illness HPI Narrative: 72-year-old female who was admitted on 09/08/17 and discharged on 09/26/17 to 1 week ago. Is admitted for C. difficile and small bowel obstruction been treated with outpatient vancomycin orally. He has however continued to have the diarrhea and has had some episodes of nausea with vomiting over the past 3 days. Is a dialysis patient she did have her dialysis performed yesterday and will have another dialysis tomorrow. Her initial heart rate is 80 and blood pressure 94/69 is complaining of weakness with continued diarrhea and nausea vomiting. Is afebrile pulse ox is reading at 97% she denies any chest pain no shortness of breath eyes abdominal pain having multiple bouts of diarrhea still she states is when she was admitted. Been no injury no trauma no falls - Related Data Home Medications Medication Instructions Recorded Confirmed Sennosides [Senna] 1 tab PO HS 09/09/17 09/09/17 Sennosides [Senokot] 2 tab PO DAILY 09/09/17 09/09/17 Previous Rx's Medication Instructions Recorded trazodone 100 mg tablet 250 mg PO QHS 90 Days #225 tab 09/11/16 Ipratropium/Albuterol [Duoneb] 3 ml NEB BID ampul.neb 05/20/17 Acetaminophen [Tylenol] 650 mg PO Q4-6HP PRN tab 05/28/17 Vitamin D3 1,000 unit PO DAILY tab 05/28/17 budesonide 0.5 mg/2 mL suspension 0.5 mg INHALATION Q12 #60 ml 08/29/17 for nebulization fluoxetine 40 mg capsule 40 mg PO QDAY #90 cap 08/29/17 wheelchair See Dose Instructions .ROUTE 08/29/17 .MEDSUPPLY #1 each Bacitracin 25,000 unit IRR BID vial 09/26/17 Clindamycin [Cleocin] 300 mg IRR BID vial 09/26/17 Gentamicin Sulfate 40 mg IRR BID vial 09/26/17 Midodrine [Midodrine HCl] 15 mg PO TID@0800,1200,1700 #30 tab 09/26/17 Vancomycin Oral Lizy 500 mg PO QID #56 bottle 09/26/17 predniSONE [Prednisone] 10 mg PO QAC #30 tab 09/26/17 traMADol HCL/ACETAMINOPHEN 1 tab PO Q8HP PRN #20 tab 09/26/17 [Ultracet] albuterol sulfate 2.5 mg/3 mL 2.5 mg INHALATION Q2HP PRN #180 ml 09/27/17 (0.083 %) solution for nebulization cyanocobalamin (vit B-12) ER 1,000 1,000 mcg PO QDAY #30 tab 09/27/17 mcg tablet,extended release suvorexant 10 mg tablet 10 mg PO QHS #30 tab 09/28/17 ondansetron 4 mg disintegrating 4 mg PO Q4H 7 Days #10 tab 09/30/17 tablet lorazepam 0.5 mg tablet 0.5 mg PO Q4HP PRN #120 tab 10/01/17 pantoprazole 40 mg tablet,delayed 40 mg PO BID #60 tab 10/02/17 release aripiprazole 2 mg tablet 2 mg PO QDAY 30 Days #30 tab 10/03/17 clopidogrel 75 mg tablet 75 mg PO DAILY #30 tab 10/03/17 Allergies Allergy/AdvReac Type Severity Reaction Status Date / Time codeine Allergy Mild Hives Verified 09/03/17 10:45 Oxycodone Allergy Mild Rash Verified 09/03/17 10:45 NSAIDS (Non-Steroidal Allergy Unknown Unknown Verified 09/03/17 10:45 Anti-Inflamma meperidine [From Demerol] AdvReac Mild Itching Verified 09/03/17 10:45 Review of Systems All systems ED: reviewed and negative except as stated. Constitutional: Denies: fever, chills Eyes: Denies: eye pain ENT ED: Denies: ear pain Cardiovascular: Denies: chest pain, palpitations Respiratory: Denies: shortness of breath, cough Gastrointestinal: Reports: nausea, vomiting, diarrhea. Denies: abdominal pain, constipation, hematochezia Genitourinary: Denies: dysuria, urgency, frequency Musculoskeletal: Denies: back pain, joint swelling Integumentary: Denies: rash Neurological: Denies: headache, weakness Psychiatric: Denies: anxiety, depression Endocrine: Denies: fatigue Hematological/Lymphatic: Denies: easy bleeding Allergic/Immunologic: Denies: facial swelling Past Medical History - Past Medical History Medical history: Reports: arthritis, COPD, coronary artery disease, fibromyalgia , hypertension, hypothyroidism, migraine, osteoporosis, renal disease, other Surgical history ED: Reports: cataract, hysterectomy, JOSE/BSO, tonsillectomy, vascular surgery, other Family history: Reports: other (father diabetes cerebral aneurism mother mi sister diabetes) - Social History smoking status: Former smoker Alcohol use: Reports: Rarely Drug use: Reports: none Physical Exam Limitations: no limitations General appearance: alert Head: atraumatic, normocephalic Eye: Present: normal appearance, PERRL ENT: normal exam, mucous membranes dry Neck: Present: normal inspection, full ROM, trachea midline Chest: Present: normal inspection, symmetric chest wall rise. Absent: tenderness Respiratory: Present: normal lung sounds bilaterally. Absent: respiratory distress, wheezes, stridor Cardiovascular: Present: regular rate, normal rhythm. Absent: bradycardia, tachycardia Abdominal: Present: soft, normal bowel sounds. Absent: distention, tenderness, guarding, rebound, rigidity Extremities: Present: normal inspection, full ROM. Absent: tenderness Back: Present: normal inspection, full ROM. Absent: tenderness, CVA tenderness (R), CVA tenderness (L) Neurological: Present: alert, oriented X3, CN II-XII intact Psychiatric: Present: normal affect, normal mood Skin: Present: warm, dry, intact Course Vital Signs Pulse Rate 81 10/03/17 10:41 Respiratory Rate 10/03/17 10:41 Blood Pressure 94/69 10/03/17 10:41 Pulse Oximetry (%) 96 10/03/17 10:41 Pulse Rate 78 10/03/17 13:46 Respiratory Rate 18 10/03/17 13:46 Blood Pressure 93/66 10/03/17 13:46 Pulse Oximetry (%) 91 10/03/17 13:46 Nausea/Vomiting/Diarrhea - [facility] Narrative Medical decision making narrative: Two-view x-ray reveals a small bowel obstruction at the proximal jejunum air- fluid levels. CT is pending at this time. Sodium is 132 potassium 3.2 the BUN is 26 2 creatinine 3.6 WBC is 10,600 with 12 bands C. difficile is still pending. The Tripp the surgeon on-call is here to evaluate the patient with a small bowel obstruction Dr. Mcclure the hospitalist has been contacted the patient is to be admitted for further workup of her small bowel obstruction - Lab Data Result diagrams: 10/03/17 11:32 10/03/17 11:32 Lab Results 10/03/17 10/03/17 10/03/17 Range/Units 11:32 11:32 11:32 WBC 10.9 (4.5-11.0) K/mcL RBC 3.74 L (4.00-5.20) M/mcL Hgb 14.0 (12.0-15.0) g/dL Hct 43.4 (36.0-48.0) % POC Hct 49.0 H (36.0-48.0) % MCV 116.0 H (80.0-100.0) fL MCH 37.4 H (26.0-34.0) pg MCHC 32.2 (31.0-36.0) g/dL RDW 24.4 H (11.5-14.5) % Plt Count 123 L (140-440) K/mcL MPV 10.3 (7.4-10.4) fL Total Counted 100 Seg Neutrophils % 70 (38-78) % Band Neutrophils % 12 H (0-10) % Lymphocytes % 9 L (15-49) % Monocytes % (Manual) 9 (1-12) % Platelet Estimate Decreased (NORMAL) RBC Morphology Abnorm A (NORMAL) Anisocytosis 2+ A (NONE SEEN) Macrocytosis 2+ A (NONE SEEN) VBG Lactic Acid 1.8 (0.5-2.2) mmol/L POC Sodium 132 L (133-145) mmol/L Sodium 131 L (133-145) mmol/L POC Potassium 3.2 L (3.3-5.1) mmol/L Potassium 3.4 (3.3-5.1) mmol/L POC Chloride 93 L (96-108) mmol/L Chloride 87 L (96-108) mmol/L Carbon Dioxide 23 (22-30) mmol/L POC Total CO2 28 (22-30) mmol/L Anion Gap 21.0 H (8-16) POC BUN 26 H (8-23) mg/dl BUN 20 (8-23) mg/dl Creatinine 3.6 H (0.6-1.1) mg/dl POC Creatinine 3.7 H (0.6-1.1) mg/dl GFR Calculation 12 Glucose 110 H (70-105) mg/dL POC Glucose 114 H (70-105) mg/dL Calcium 9.2 (8.6-10.4) mg/dl POC WB Ioniz Calcium 1.02 L (1.16-1.32) mmol/L Total Bilirubin 0.8 (0.0-1.0) mg/dL AST 21 (0-37) U/l ALT 6 (0-40) U/l Alkaline Phosphatase 61 (39-117) U/L Total Protein 6.4 (5.9-8.4) gm/dL Albumin 3.2 (3.2-5.2) gm/dL Globulin 3.2 (2.2-3.7) gm/dL Albumin/Globulin Ratio 1.0 (1.0-2.3) Lipase 31 (7-60) U/L Disposition Pt seen by NIPPLE MACHINE OPERATOR/PA only: No Clinical Impression: Small bowel obstruction Disposition: Xfer As Inpt ([facility]) Referrals: Maribel Jaimes, ALEXANDR, STATISTICAL TECHNICIAN [Primary Care Provider] -
[2017-10-03] MEDS ORDERED: 0.9 % SODIUM CHLORIDE 500 ML IV ONE (11:43)
[2017-10-03 12:22] LABS: Mean Corpuscular HGB Conc 32.2 g/dL (31.0-36.0); Mean Corpuscular Hemoglobin 37.4 pg (26.0-34.0); Platelet Count 123 K/mcL (140-440); RBC 3.74 M/mcL (4.00-5.20); Red Cell Distribution Width 24.4 % (11.5-14.5)
--- NOTE | 2017-10-03 12:26 | XRay Report ---
CLINICAL INFORMATION: Shortness of breath and weakness COMPARISON: 09/26/2017 FINDINGS: Heart size and mediastinum are unremarkable. Right IJ double-lumen catheter tip overlies the infrahepatic IVC. No pneumothorax or other complication from catheter placement. The pulmonary vessels are now mildly distended and there is minor bibasilar atelectasis. IMPRESSION: Borderline CHF or volume overload Mild bibasilar atelectasis New right IJ double-lumen catheter tip is quite distal and overlies the intrahepatic IVC. Consider withdrawing the catheter 6.5 cm Interpreted and Authenticated by: Fortino Mendoza 10/03/17
--- NOTE | 2017-10-03 12:31 | XRay Report ---
CLINICAL INFORMATION: Diarrhea and history of small bowel obstruction COMPARISON: 09/13/2017 FINDINGS: The stomach, duodenum and proximal jejunum are moderately dilated with air-fluid levels on decubitus film. Small bowel, distal to the proximal jejunum, and the entire colon are decompressed. No free air, soft tissue mass, or organomegaly. Few small calcifications overlying both kidneys likely represent nonobstructing calculi IMPRESSION: High-grade obstruction of the proximal jejunum. Interpreted and Authenticated by: Fortino Mendoza 10/03/17
[2017-10-03 12:49] LABS: ALT/SGPT 6 U/l (0-40); Albumin 3.2 gm/dL (3.2-5.2); Alkaline Phosphatase 61 U/L (39-117); Anisocytosis 2+ (NONE SEEN); Band Neutrophils % 12 % (0-10); Blood Urea Nitrogen 20 mg/dl (8-23); Lipase 31 U/L (7-60); Lymphocytes % 9 % (15-49); Macrocytosis 2+ (NONE SEEN); Monocytes % (Manual) 9 % (1-12); Platelet Estimate DECREASED (NORMAL); RBC Morphology ABNORM (NORMAL); Segmented Neutrophils % 70 % (38-78)
[2017-10-03] MEDS ORDERED: LIDOCAINE JEL 2% 1 TUBE 30GM TOPICAL ONE (14:04)
--- NOTE | 2017-10-03 15:45 | Cat Scan Report ---
CLINICAL INFORMATION: Recurrent small bowel obstruction COMPARISON: 05/14/2017. TECHNIQUE: 0.625 mm helical slices were obtained from the mid heart through the subtrochanteric regions. Following reconstruction, 2.5 mm sagittal, coronal and axial reformatted images were processed and reviewed at bone and soft tissue windows.The exam was performed using radiation dose optimization techniques including, but not limited to, automated exposure control, adjustment of the mA and/or kV according to patient size and use of iterative reconstruction technique. FINDINGS: Bilateral pleural effusions have decreased from previous study are now small. The heart is normal in size with a chronic hemopericardium is unchanged. There is moderate subsegmental atelectasis in both inferior lower lobes which is unchanged Images through the abdomen show the noncontrasted liver gallbladder and bile ducts are normal. Marked bilateral renal atrophy again noted compatible end-stage renal failure. There are multiple calculi in the calyces of both kidneys as previously seen. Bilateral renal cysts are unchanged. A 3 cm adenoma left adrenal gland is unchanged. The right adrenal gland spleen, pancreas and aorta are unremarkable. Images through the pelvis show hysterectomy/oophorectomy changes. Urinary bladder is normal. Moderate free fluid in the deep true pelvis - as seen on the previous examination. A 4.4 cm collection is seen in the right adnexa: this could also potentially represent an ovarian cyst, but is more likely likely loculated intraperitoneal fluid. Moderate edema in the subcutaneous fat seen as before. An NG tube is is in place tip is in the gastric body. Presumably, there was partial decompression prior to the scan. Partial decompression in addition to the absence of enteric contrast including negative contrast makes assessment of bowel anatomy more difficult. The stomach, duodenum and proximal jejunum are moderately dilated to the level of the anastomosis. The distal small bowel and colon are decompressed. There is no free air or adenopathy. Bone windows show no focal osseous lesion IMPRESSION: 1. Recurrent partial proximal jejunal obstruction near the site of the surgical resection - primary small bowel anastomosis. 2. Small amount of free fluid in the deep true pelvis - similar previous study. 3. Marked bilateral renal atrophy compatible with end-stage renal failure. 4. Small bilateral pleural effusion which have decreased. 5. Small chronic hemopericardium unchanged and likely related to chronic renal failure Interpreted and Authenticated by: Fortino Mendoza 10/03/17
[2017-10-03] MEDS ORDERED: ONDANSETRON 4 MG/2 ML VIAL IV PRN (18:15)
[2017-10-03] MEDS: 0.9 % SODIUM CHLORIDE 1,000 ML IV SCH (19:11)
[2017-10-03] MEDS: metroNIDAZOLE 500 MG/100 ML BAG IV SCH (19:11)
--- NOTE | 2017-10-03 19:33 | Internal Med History&Physical ---
Medical - H&P: HPI Patient information: Note initiated : 10/03/17 at 7:32 pm Service Date, if different from initiated Date: [] Patient: Naz Joseph 72 y/o F admitted on 10/03/17 for Diarrhea. Chief complaint: Nausea and vomiting History of present illness: The patient is 72-year-old female with complex past medical history, end-stage renal disease on dialysis, history of hypertension, but most recently being treated with midodrine and prednisone for low blood pressures, coronary artery disease, C. difficile colitis, continuing on vancomycin who presents to the emergency department with progressive weakness, nausea, vomiting, worsening diarrhea after discharge from this facility one week ago. The patient was admitted here on 09/08, being sent over from dialysis due to low blood pressure. Was found to have a partial small bowel obstruction which resolved. Had loose stools which were positive for C. difficile. She required pressor support, though the etiology of her low blood pressure is not entirely clear but did improve after steroid administration. She was also started on oral midodrine. At discharge she was feeling "not too bad". She did okay for a couple of days. Subsequently developed nausea with bilious emesis. No blood. She didn't really have any abdominal pain. Her stools were loose when she left, however they worsened after discharge. They're watery with no blood. Due to overall worsening she presents the ED. Patient denies any fevers or chills. She is feeling short of breath, has a cough with a little bit of sputum production, though appears she does have somewhat of a chronic cough. She's noted some mild lower extremity edema, he is using compression hose. She's had some sharp chest pains with coughing, noted chest tightness/squeezing. He has not felt lightheaded. She has some urine output daily, which is unchanged. Her last hemodialysis was yesterday, which she apparently tolerated well. In the emergency department on abdominal exam she did have some discomfort. Given her history of bowel surgeries (history of gastric bypass with reversal and small bowel resection) films were obtained. Plain film showed evidence of a small bowel obstruction. This was confirmed by CT, though while it was noncontrast had findings concerning for jejunal bowel obstruction. She's continued to have loose stools as noted. She's been taking vancomycin 500 mg 4 times a day. Fidaxomicin was considered, but was not available at this facility. Given her bowel obstruction, nausea, vomiting, ongoing loose stools, she is being admitted to the hospital for further care. All systems: reviewed and no additional remarkable complaints except as stated Medical - H&P: PMH Medical history: Hypertension (Chronic) Coronary artery disease involving [place] coronary artery (Chronic) End stage renal disease (Chronic) Hypertensive renal disease (Chronic 07/14/13) Aspiration into airway (Chronic) Pulmonary fibrosis (Chronic) Aortic valve sclerosis (Chronic) COPD (chronic obstructive pulmonary disease) (Chronic) Cough (Chronic) Obstructive sleep apnea (Chronic) Deep vein thrombosis (Chronic)-04/2009, unprovoked Osteoporosis (Chronic) Osteoarthritis (Chronic 10/07/04) Obstructive uropathy (Chronic 11/10/14) Nephrolithiasis (Chronic 07/14/13) Gout (Chronic 07/14/13) Fibromyalgia (Chronic) Depression (Chronic) Migraine (Chronic) Impaired fasting glucose (Chronic) Hematoma and contusion (Resolved) Cyst of Bartholin's gland duct (Resolved) Hemorrhage of arteriovenous fistula (Resolved) Pericarditis (Chronic) Pericardial effusion (Chronic) Insomnia (Chronic) Vitamin B 12 deficiency (Chronic) Venous insufficiency (Chronic 01/13/14) UTI (urinary tract infection) (Chronic) 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) Fracture, femur neck (Resolved 09/24/15) Rotator cuff tear (Chronic 04/09/14) Rotator cuff arthropathy (Chronic 04/09/14) Hemorrhoids, internal (Chronic 11/03/13) Carpal tunnel syndrome (Chronic) Surgical history: Arteriovenous fistula, acquired (Chronic) History of bariatric surgery (Chronic)-1976, jejunal bypass History of resection of small bowel (Chronic 03/23/15) History of lithotripsy (Acute 09/21/15) History of gastrointestinal surgery (Chronic) History of rectal surgery (Chronic) Hx of appendectomy (Chronic) Hx of shoulder surgery (Chronic) S/P JOSE-BSO (Chronic)-1983, menorrhagia and fibroids S/P nerve repair (Chronic)-median n at carpal tunnel History of abdominal surgery (Resolved 11/03/14)-abdominal wall abscess History of adenoidectomy (Resolved)-1950 History of cataract surgery (Resolved)-1993, right eye History of colonoscopy (Resolved 11/03/13) History of cystoscopy (Resolved 04/20/11) History of hammer toe correction (Resolved) History of hemorrhoidectomy (Resolved)-1976 History of lithotripsy (Resolved 01/12/09) History of oophorectomy (Resolved) History of tonsillectomy (Resolved) History of ureter repair (Resolved 09/02/12) History of ureter stent (Resolved 11/29/08) Status post bunionectomy (Resolved)-1989, lateral right foot Pertinent family history: Father Hemorrhage due to ruptured congenital cerebral aneurysm Type 2 diabetes mellitus Family history of diabetes mellitus Family history of arthritis Essential hypertension Cerebrovascular accident Sister Type 2 diabetes mellitus Mother Family history of arthritis Essential hypertension Acute myocardial infarction Unknown Family history of coronary artery disease Osteoporosis Social history: ; was at SNF for past week after hospital discharge 09/26/17. Does not smoke, no alcohol use. Medical - H&P: Meds Home Medications Medication Instructions Recorded Confirmed Type trazodone 100 mg tablet 250 mg PO QHS 90 Days #225 tab 09/11/16 09/09/17 Rx Ipratropium/Albuterol [Duoneb] 3 ml NEB BID ampul.neb 05/20/17 09/09/17 Rx Acetaminophen [Tylenol] 650 mg PO Q4-6HP PRN tab 05/28/17 09/09/17 Rx Vitamin D3 1,000 unit PO DAILY tab 05/28/17 09/09/17 Rx budesonide 0.5 mg/2 mL suspension 0.5 mg INHALATION Q12 #60 ml 08/29/17 Rx for nebulization fluoxetine 40 mg capsule 40 mg PO QDAY #90 cap 08/29/17 09/09/17 Rx wheelchair See Dose Instructions .ROUTE 08/29/17 09/03/17 Rx .MEDSUPPLY #1 each Sennosides [Senna] 1 tab PO HS 09/09/17 09/09/17 History Sennosides [Senokot] 2 tab PO DAILY 09/09/17 09/09/17 History Bacitracin 25,000 unit IRR BID vial 09/26/17 Rx Clindamycin [Cleocin] 300 mg IRR BID vial 09/26/17 Rx Gentamicin Sulfate 40 mg IRR BID vial 09/26/17 Rx Midodrine [Midodrine HCl] 15 mg PO TID@0800,1200,1700 #30 tab 09/26/17 Rx Vancomycin Oral Lizy 500 mg PO QID #56 bottle 09/26/17 Rx predniSONE [Prednisone] 10 mg PO QAC #30 tab 09/26/17 Rx traMADol HCL/ACETAMINOPHEN 1 tab PO Q8HP PRN #20 tab 09/26/17 Rx [Ultracet] albuterol sulfate 2.5 mg/3 mL 2.5 mg INHALATION Q2HP PRN #180 ml 09/27/17 Rx (0.083 %) solution for nebulization cyanocobalamin (vit B-12) ER 1,000 1,000 mcg PO QDAY #30 tab 09/27/17 09/27/17 Rx mcg tablet,extended release suvorexant 10 mg tablet 10 mg PO QHS #30 tab 09/28/17 Rx ondansetron 4 mg disintegrating 4 mg PO Q4H 7 Days #10 tab 09/30/17 Rx tablet lorazepam 0.5 mg tablet 0.5 mg PO Q4HP PRN #120 tab 10/01/17 Rx pantoprazole 40 mg tablet,delayed 40 mg PO BID #60 tab 10/02/17 Rx release aripiprazole 2 mg tablet 2 mg PO QDAY 30 Days #30 tab 10/03/17 Rx clopidogrel 75 mg tablet 75 mg PO DAILY #30 tab 10/03/17 Rx Allergies Allergy/AdvReac Type Severity Reaction Status Date / Time codeine Allergy Mild Hives Verified 09/03/17 10:45 Oxycodone Allergy Mild Rash Verified 09/03/17 10:45 NSAIDS (Non-Steroidal Allergy Unknown Unknown Verified 09/03/17 10:45 Anti-Inflamma meperidine [From Demerol] AdvReac Mild Itching Verified 09/03/17 10:45 Medical - H&P: Exam - Constitutional Vitals: Temp Pulse Resp BP Pulse Ox 97.8 F 79 18 95/69 95 10/03/17 17:00 10/03/17 17:00 10/03/17 17:00 10/03/17 17:00 10/03/17 17:00 GENERAL: Alert, oriented, chronically ill appearing HEENT: Atraumatic. PERRL, conjunctiva clear, no scleral icterus. Hearing grossly intact. Oropharynx with moist mucous membranes Tongue midline. NECK: Supple without meningismus, no thyromegaly RESPIRATORY: Breath sounds diminished left base, coarse, without wheezes or rhonchi. Respiratory effort is unlabored. CARDIOVASCULAR: Regular rate and rhythm, no murmur gallop or rub. No peripheral edema (MADDIE hose in place). Carotid pulses 2+ GI: Abdomen soft, diminished bowel sounds; mild-mod LLQ tenderness without guarding or rebound. No hepatosplenomegaly appreciated. MUSCULOSKELETAL: No joint erythema or swelling; LUE fistula. Muscle mass decreased throughout. Generalized weakness in the upper and lower extremities. SKIN: Multiple ecchymoses on BUE's, skin tears (covered); covered wound left scapula region. NEUROLOGIC: Cranial nerves II through XII grossly intact. Sensation intact to light touch bilaterally. PSYCHIATRIC: Alert, oriented x3, normal insight. Medical - H&P: Reslt - Labs CBC & Chem 7: 10/03/17 11:32 10/03/17 11:32 Labs: Short CBC 10/03/17 Range/Units 11:32 WBC 10.9 (4.5-11.0) K/mcL Hgb 14.0 (12.0-15.0) g/dL Hct 43.4 (36.0-48.0) % Plt Count 123 L (140-440) K/mcL BMP 10/03/17 11:32 Sodium 131 L Potassium 3.4 Chloride 87 L Carbon Dioxide 23 BUN 20 Creatinine 3.6 H Glucose 110 H Calcium 9.2 Liver Function 10/03/17 Range/Units 11:32 Total Bilirubin 0.8 (0.0-1.0) mg/dL AST 21 (0-37) U/l ALT 6 (0-40) U/l Alkaline Phosphatase 61 (39-117) U/L Albumin 3.2 (3.2-5.2) gm/dL - Impressions CT of abdomen and pelvis IMPRESSION: 1. Recurrent partial proximal jejunal obstruction near the site of the surgical resection - primary small bowel anastomosis. 2. Small amount of free fluid in the deep true pelvis - similar previous study. 3. Marked bilateral renal atrophy compatible with end-stage renal failure. 4. Small bilateral pleural effusion which have decreased. 5. Small chronic hemopericardium unchanged and likely related to chronic renal failure. - Imaging and Cardiology Chest x-ray Status: image reviewed by me (IMPRESSION: Borderline CHF or volume overload; mild bibasilar atelectasis) Abdominal x-ray Status: image reviewed by me (IMPRESSION: High-grade obstruction of the proximal jejunum.) Medical - H&P: A/P (1) Small bowel obstruction Current visit: Yes Status: Acute (2) C. difficile colitis Current visit: No Status: Acute (3) Hypotension Current visit: No Status: Acute (4) COPD (chronic obstructive pulmonary disease) Current visit: No Status: Chronic (5) Coronary artery disease involving [place] coronary artery Current visit: No Status: Chronic (6) ESRD (end stage renal disease) on dialysis Current visit: No Status: Chronic - Narrative A/P Narrative: 72-year-old female with multiple medical problems, admitted with nausea, vomiting, ongoing loose stools, found to have changes consistent with small bowel obstruction. Small bowel obstruction. She's had previous abdominal surgeries with gastric bypass and reversal and resection, may be an anastomotic. Surgeries been consult is following the patient along. Currently will treat conservatively with bowel rest, hydration, optimize electrolytes and follow. Patient would be high risk for surgical intervention. Plan: Inpatient admission, gentle hydration, NG tube, pain and nausea control. Clostridium difficile colitis. Currently continuing to be treated with vancomycin. Worsening diarrhea may have been due to poor transit of the drug into the gut or not been able to keep it down over the last several days. Suspect the molecular probe toxin assay will still be positive with treatment. Plan: Continue with vancomycin, clamping NG tube around administration periods. Also use IV metronidazole, and attempt to get further drug into the colon. Hypotension. Patient was treated for shock, felt secondary to her C. difficile last hospitalization, however remained with low blood pressure. Was started on midodrine which was titrated up, has also been on prednisone. Has had her fistula ligated in an attempt to avoid A-V shunting that might affect her blood pressure. Plan: Continue with midodrine and prednisone. COPD. No current exacerbation. Coronary artery disease, quiescent. Given the possibility of having to go to the OR, we will hold her Plavix. End-stage renal disease, has small pleural effusions, however her volume overload has improved significantly since her last hospitalization. Plan: Hemodialysis Sunday, Sunday, Sunday per nephrology. CODE STATUS, patient requests DO NOT RESUSCITATE. Prophylaxis: Subcutaneous heparin, H2 antagonist. Medical - H&P: Qual - VTE Deep Vein Thrombosis/Pulmonary Embolism Present on Admission: No
--- NOTE | 2017-10-03 20:30 | Consultation ---
DATE OF CONSULTATION: 10/03/2017 CHIEF COMPLAINT: The patient is seen in consultation at the request of Dr. Galvin for a small-bowel obstruction. HISTORY OF PRESENT ILLNESS: The patient is a 72-year-old woman who presents to the ER with complaints of nausea and vomiting for approximately 1 week since her most recent hospital discharge. The patient was recently admitted to [facility] and discharged on 09/26 after care for pneumonia and C. difficile enterocolitis. The patient was discharged to a care facility with 14 days of oral vancomycin. She states that since her discharge, she has had continued liquid stools, although they seem to have been improving over the past couple of days. She states that also she has developed nausea and vomiting, Over the past few days emesis has consisted of green liquid. The patient denies pain in her abdomen, primarily reports headache on admission today. PAST MEDICAL HISTORY: Significant for end-stage renal disease on hemodialysis. COPD, chronic pericarditis. Hypertension. Coronary artery disease on antiplatelet therapy. History of DVT. PAST SURGICAL HISTORY: Surgical history significant for bariatric surgery with reversal of bariatric procedure due to chronic metabolic sequelae of the bypass procedure. Appendectomy, tonsillectomy, hysterectomy, oophorectomy ureteral stenting, cataract surgery, shoulder surgery. PHYSICAL EXAMINATION: VITAL SIGNS: Temperature 97.8, pulse 78, respirations 22, blood pressure 90/69, O2 saturations 92 to 94 percent on room air. GENERAL APPEARANCE: The patient is an elderly woman who appears older than her stated age and appears uncomfortable and mildly distressed. HEENT: Normocephalic. Sclerae are white. Skin is somewhat ashen in color despite normal pulse oximetry. CHEST: Breath sounds are clear in the upper mendez but diminished at the bases bilaterally. CARDIOVASCULAR: Reveals a regular rhythm. ABDOMEN: Obese. There is upper abdominal distention which feels consistent with a distended loop of bowel. No masses or specific areas of distention noted on exam. The patient is nontender to palpation on examination of the upper abdomen. Mild tenderness over areas of left and right colon. EXTREMITIES: There is multiple bruising throughout thin skin on the upper extremities. There is a site of previous upper arm fistula on the left that has recently been tied off. There are multiple bandages on the right upper extremity at sites of skin tears. Distal pulses are present but weak. LABS AND STUDIES: CBC on admission to the ER shows a white blood cell count of 10.4, hemoglobin of 14.0, hematocrit 43.4, platelets of 123. Serum chemistries show sodium of 131, potassium 3.4, chloride 87, CO2 23, BUN 20, creatinine 3.6, glucose 110, calcium 9.2, total bilirubin 0.8, AST 21, ALT 6, alkaline phosphatase 61, total protein 6.4, albumin 3.2, lipase of 31. Abdominal x-rays done in the Emergency Department were reviewed and show an area of distended loop of small bowel in the central upper abdomen and air fluid levels consistent with bowel obstruction. ASSESSMENT AND PLAN: Small-bowel obstruction. This is presumably partial given the patient's continuation of passage of stool and flatus, although this passage of stool may be more related to ongoing Clostridium difficile infection. At the time of evaluation in the emergency department, orders were given for nasogastric tube placement. After placement of nasogastric tube, approximately 1100 mL of green bilious output was obtained, and the patient immediately started to feel better even though she still did not complain of abdominal pain. Palpation of her abdomen after placement of nasogastric tube and decompression revealed resolution of the area of distention felt in the upper abdomen, initially on exam. The patient subsequently underwent CT scan of the abdomen and pelvis. Images from this study were reviewed. This shows a partial proximal jejunal obstruction near site of the surgical anastomosis. There is a small amount of free fluid in the deep true pelvis which is similar to a previous CT scan from prior admission. There is marked bilateral renal atrophy. Small bilateral pleural effusions which have decreased. A small chronic hemopericardium. ASSESSMENT AND PLAN: 1. Partial small-bowel obstruction. 2. Recent and possibly continuous Clostridium difficile colitis infection. 3. On antiplatelet therapy, Plavix. I discussed findings on imaging and exam with the patient. Findings are consistent with a partial small-bowel obstruction. It seems by notes from previous hospitalization that she had similar symptoms at some point which seemed to have resolved. She states that at that hospitalization, nasogastric tube decompression was not performed. At this time, given her comorbid conditions and her very poor risk as a surgical candidate, would recommend continuing with nasogastric tube decompression and seeing if we can help this resolve on its own. The patient was in agreement with this plan. Will keep nasogastric tube to low continuous suction and keep patient nothing by mouth. We will follow clinically and monitor exam. Case discussed with Dr. Mcclure, the hospitalist, who is admitting the patient. RC:remy Job ID: [id number] Doc ID: [id number] Linh Tripp MD MTDD
[2017-10-03] MEDS: HEPARIN 5,000 UNIT/ML VIAL SQ SCH (21:28)
[2017-10-03] MEDS: FAMOTIDINE/PF 20 MG/2 ML VIAL IV SCH (21:30)
[2017-10-03] MEDS: 0.9 % SODIUM CHLORIDE 10 ML SYRINGE IV SCH (21:33)
[2017-10-04] MEDS: ACETAMINOPHEN 325 MG TABLET PO PRN (02:28)
[2017-10-04] MEDS: metroNIDAZOLE 500 MG/100 ML BAG IV SCH ×3 (02:53→19:20)
[2017-10-04] MEDS ORDERED: HYDROmorphone 2 MG TABLET ONE (04:47)
[2017-10-04] MEDS: HYDROmorphone 2 MG TABLET PO PRN ×2 (04:54→21:42)
[2017-10-04] MEDS: MIDODRINE 5 MG TABLET PO ONE ×2 (05:27)
[2017-10-04] MEDS ORDERED: MIDODRINE 5 MG TABLET PO ONE (05:28)
[2017-10-04 05:50] LABS: Basophils # (Auto) 0 K/mcL (0.0-0.3); Basophils % (Auto) 0 % (0.0-2.0); Eosinophils # (Auto) 0.2 K/mcL (0.0-0.7); Eosinophils % (Auto) 2.2 % (0.0-7.0); Granulocytes % (Auto) 77.6 % (38.0-78.0); Lymphocytes # (Auto) 0.9 K/mcL (1.5-4.8); Lymphocytes % (Auto) 9.5 % (15.5-49.0); Mean Cell Volume 117.1 fL (80.0-100.0); Mean Corpuscular HGB Conc 32.4 g/dL (31.0-36.0); Mean Corpuscular Hemoglobin 37.9 pg (26.0-34.0); Monocytes % (Auto) 10.7 % (1.0-12.0); Platelet Count 122 K/mcL (140-440); RBC 3.54 M/mcL (4.00-5.20); Red Cell Distribution Width 23.3 % (11.5-14.5)
[2017-10-04] MEDS: 0.9 % SODIUM CHLORIDE 10 ML SYRINGE IV SCH ×3 (07:00→22:00)
[2017-10-04 07:27] LABS: ALT/SGPT < 5 U/l (0-40); Alkaline Phosphatase 57 U/L (39-117); Bilirubin,Direct 0.4 mg/dL (0.0-0.3); Blood Urea Nitrogen 26 mg/dl (8-23); Gamma Glutamyl Transpeptidase 32 U/L (5-36); Uric Acid 7.1 mg/dL (2.5-8.0)
[2017-10-04] MEDS ORDERED: POTASSIUM CHLORIDE 20 MEQ/15 ML ML PT ONE (07:31)
--- NOTE | 2017-10-04 08:53 | General Surgery Progress Note ---
Surgical - Auxillary Note - Subjective Patient Information: Note initiated : 10/04/17 at 8:47 am Service Date, if different from initiated Date: [] Patient: Naz oJseph 72 y/o F admitted on 10/03/17 for Diarrhea. Chief Complaint: [] Patient resting in bed. Easily awakened. Reports she is feeling better. Denies abdominal pain. Vital Signs Temp Pulse Resp BP Pulse Ox 97.6 F 77 16 96/71 92 10/04/17 07:00 10/03/17 21:37 10/04/17 07:00 10/04/17 07:00 10/04/17 07:00 Period Temp Pulse Resp BP Sys/Millan Pulse Ox Last 24 Hr 96.5 F-99.3 F 76-84 14-26 79-102/62-73 91-97 Intake and Output 10/03/17 10/04/17 10/04/17 21:59 05:59 13:59 Intake Total 100 / 100 515 / 515 0 / 0 Output Total 1100 / 1100 600 / 600 Balance -1000 / -1000 -85 / -85 0 / 0 Weight 164 lb PE: No distress. Appears tired. Abdomen is soft. No upper abdominal distention as on presentation. NGT in place with small amount of bilious output at this time. Not tender to palpation. CBC and Chem 7 10/04/17 04:15 10/04/17 04:15 A/P: PSBO On NGT decompression and bowel rest for now. Feeling better. Have spoken with Dr. Valentin, patient's facilities maintenance supervisor, who states patient is high risk for for surgery.Will try conservative management and see if responds. Also being treated for Cdiff colitis. quetionably improving. Hard to say if symptoms from this are crossing over and contributing to some of the symptoms being attributed to PSBO although imaging does show changes c/w this. Would be ideal if could better clear colitis. Consider GI consult if colitis symptoms not improving as she has been on flagyl and oral Vanco. Recheck abd xrays in a.m.
[2017-10-04] MEDS: HEPARIN 5,000 UNIT/ML VIAL SQ SCH ×2 (09:29→20:36)
[2017-10-04] MEDS ORDERED: ALBUTEROL SULFATE 2.5 MG/3 ML NEBULIZER NEB PRN (11:42)
[2017-10-04] MEDS ORDERED: HYDROCORTISONE SOD SUCC 100 MG VIAL IV ONE (11:48)
[2017-10-04] MEDS: MIDODRINE 5 MG TABLET PO SCH ×2 (13:12→16:40)
--- NOTE | 2017-10-04 13:22 | Nephrology Consult Note ---
History of Present Illness - Reason for Consult Patient information: Note initiated : 10/04/17 at 1:20 pm Naz Joseph is an 60-puj[age]-aze female admitted on 10/03/17. Chief Complaint: Nausea and vomiting. Consult date: 10/04/17 end stage renal disease Requesting physician: Mercy Pierson - Chief Complaint Nausea and vomiting. - History of Present Illness Naz Joseph is an 55-ahcrn-vka female with end stage renal disease on chronic hemodialysis (through left arm AV fistula, at [facility], on TTS, followed by Dr Valentin), chronic anemia due to chronic kidney disease, secondary hyperparathyroidism, history of gout, coronary artery disease, recent septic shock due to Clostridium difficile colitis, admitted on 10/03/17 for partial small-bowel obstruction. Review of Systems Constitutional: anorexia, weakness Nose, mouth and throat: other (NG tube), no neck pain Cardiovascular: no chest pain, no palpatations Respiratory: no cough, no dyspnea Gastrointestinal: abdominal pain, nausea Genitourinary: other (anuria) Musculoskeletal: no back pain, no neck pain Integumentary: no rash, no wounds Neurological: no confusion, no focal weakness Psychiatric: no anxiety, no depression Endocrine: no cold intolerance, no heat intolerance Hematologic/Lymphatic: no easy bleeding, no easy bruising Allergic/Immunologic: no tongue swelling, no uticaria Past History Past medical history: Medical History (Last Reviewed 09/03/17 @ 12:11 by Alfredo Whalen PA-C) Aspiration into airway (Chronic) Pulmonary fibrosis (Chronic) Aortic valve sclerosis (Chronic) Fatigue (Acute) Weakness (Acute) Dyspnea (Acute) COPD (chronic obstructive pulmonary disease) (Chronic) Cough (Chronic) Obstructive sleep apnea (Chronic) Fracture, femur neck (Resolved 09/24/15) Hematoma and contusion (Resolved) Muscle cramps (Resolved) Cyst of Bartholin's gland duct (Resolved) Hemorrhage of arteriovenous fistula (Resolved) Hematoma (Chronic) Pericarditis (Chronic) Hypertension (Chronic) Chest pain (Chronic) Coronary artery disease involving [place] coronary artery (Chronic) Dependence on renal dialysis (Chronic) End stage renal disease (Chronic) History of echocardiogram (Chronic 06/04/15) Pericardial effusion (Chronic) Insomnia (Chronic) Vitamin B 12 deficiency (Chronic) Venous insufficiency (Chronic 01/13/14) UTI (urinary tract infection) (Chronic) Tobacco use (Resolved) 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) Rotator cuff tear (Chronic 04/09/14) Rotator cuff arthropathy (Chronic 04/09/14) Renal insufficiency (Chronic 11/03/14) Renal failure (Chronic) Proteinuria (Chronic 07/14/13) Osteoporosis (Chronic) Osteoarthritis (Chronic 10/07/04) Obstructive uropathy (Chronic 11/10/14) Nephrolithiasis (Chronic 07/14/13) Systolic murmur (Chronic) Migraine (Chronic) Metabolic acidosis (Chronic 07/14/13) Joint pain (Chronic) Impaired fasting glucose (Chronic) Hypertensive renal disease (Chronic 07/14/13) Hypertension, essential (Chronic) Hemorrhoids, internal (Chronic 11/03/13) Gout (Chronic 07/14/13) Fibromyalgia (Chronic) Edema (Chronic 11/19/14) Diarrhea (Chronic) Depression (Chronic) Degenerative arthritis (Chronic) Deep vein thrombosis (Chronic) Chronic kidney disease, stage IV (severe) (Chronic 07/14/13) Carpal tunnel syndrome (Chronic) Bone spur (Chronic 11/12/02) Anxiety (Chronic) Blood clot associated with vein wall inflammation (Resolved) Fecal incontinence (Resolved 09/19/13) Tendonitis (Resolved 09/08/12) Past surgical history: Past Surgical History (Last Reviewed 09/03/17 @ 12:11 by Alfredo Whalen PA-C) Arteriovenous fistula, acquired (Chronic) History of bariatric surgery (Chronic) History of resection of small bowel (Chronic 03/23/15) History of lithotripsy (Acute 09/21/15) History of gastrointestinal surgery (Chronic) History of rectal surgery (Chronic) History of surgery (Chronic) Hx of appendectomy (Chronic) Hx of cataract surgery (Chronic) Hx of shoulder surgery (Chronic) Hx of tonsillectomy (Chronic) S/P JOSE-BSO (Chronic) S/P nerve repair (Chronic) History of abdominal surgery (Resolved 11/03/14) History of adenoidectomy (Resolved) History of cataract surgery (Resolved) History of colonoscopy (Resolved 11/03/13) History of cystoscopy (Resolved 04/20/11) History of hammer toe correction (Resolved) History of hemorrhoidectomy (Resolved) History of hysterectomy (Resolved) History of intravenous pyelogram (Resolved 05/19/11) History of lithotripsy (Resolved 01/12/09) History of oophorectomy (Resolved) History of tonsillectomy (Resolved) History of ureter repair (Resolved 09/02/12) History of ureter stent (Resolved 11/29/08) Status post bunionectomy (Resolved) Past family history: Family History (Last Reviewed 09/03/17 @ 12:11 by Alfredo Whalen PA-C) Father Hemorrhage due to ruptured congenital cerebral aneurysm Type 2 diabetes mellitus Family history of diabetes mellitus Family history of arthritis Essential hypertension Cerebrovascular accident Sister Type 2 diabetes mellitus Mother Family history of arthritis Essential hypertension Acute myocardial infarction Unknown Family history of coronary artery disease Osteoporosis Past social history: No smoking or alcohol use. Came from a SNF. Medications and Allergies Home Medications Medication Instructions Recorded Confirmed Type trazodone 100 mg tablet 250 mg PO QHS 90 Days #225 tab 09/11/16 10/04/17 Rx Ipratropium/Albuterol [Duoneb] 3 ml NEB BID ampul.neb 05/20/17 10/04/17 Rx Acetaminophen [Tylenol] 650 mg PO Q4-6HP PRN tab 05/28/17 10/04/17 Rx Vitamin D3 1,000 unit PO DAILY tab 05/28/17 10/04/17 Rx budesonide 0.5 mg/2 mL suspension 0.5 mg INHALATION Q12 #60 ml 08/29/17 Rx for nebulization fluoxetine 40 mg capsule 40 mg PO QDAY #90 cap 08/29/17 10/04/17 Rx wheelchair See Dose Instructions .ROUTE 08/29/17 09/03/17 Rx .MEDSUPPLY #1 each Sennosides [Senokot] 2 tab PO DAILY 09/09/17 10/04/17 History Midodrine [Midodrine HCl] 15 mg PO TID@0800,1200,1700 #30 tab 09/26/17 10/04/17 Rx predniSONE [Prednisone] 10 mg PO [facility] #30 tab 09/26/17 10/04/17 Rx traMADol HCL/ACETAMINOPHEN 1 tab PO Q8HP PRN #20 tab 09/26/17 10/04/17 Rx [Ultracet] albuterol sulfate 2.5 mg/3 mL 2.5 mg INHALATION Q2HP PRN #180 ml 09/27/17 Rx (0.083 %) solution for nebulization cyanocobalamin (vit B-12) ER 1,000 1,000 mcg PO QDAY #30 tab 09/27/17 10/04/17 Rx mcg tablet,extended release suvorexant 10 mg tablet 10 mg PO QHS #30 tab 09/28/17 10/04/17 Rx lorazepam 0.5 mg tablet 0.5 mg PO Q4HP PRN #120 tab 10/01/17 10/04/17 Rx pantoprazole 40 mg tablet,delayed 40 mg PO BID #60 tab 10/02/17 10/04/17 Rx release aripiprazole 2 mg tablet 2 mg PO QDAY 30 Days #30 tab 10/03/17 10/04/17 Rx Aspirin 81 mg PO DAILY 10/04/17 10/04/17 History Calcium Carbonate [Tums] 500 mg CHEWED Q6HP PRN 10/04/17 10/04/17 History Ondansetron HCl [Zofran ODT] 4 mg PO Q4H PRN 10/04/17 10/04/17 History Pantoprazole [Protonix] 40 mg PO BIDAC 10/04/17 10/04/17 History Sennosides [Senokot] 1 tab PO HS 10/04/17 10/04/17 History Vancomycin Oral Lizy 250 mg PO QID 10/04/17 10/04/17 History Allergies Allergy/AdvReac Type Severity Reaction Status Date / Time codeine Allergy Mild Hives Verified 09/03/17 10:45 Oxycodone Allergy Mild Rash Verified 09/03/17 10:45 NSAIDS (Non-Steroidal Allergy Unknown Unknown Verified 09/03/17 10:45 Anti-Inflamma meperidine [From Demerol] AdvReac Mild Itching Verified 09/03/17 10:45 Exam - Vital Signs Vital signs: Temp Pulse Resp BP Pulse Ox 97.6 F 77 16 93/67 92 10/04/17 12:25 10/03/17 21:37 10/04/17 12:25 10/04/17 12:25 10/04/17 12:25 - General Appearance General appearance: appears started age, frail EENT: mucous membranes moist Neck: supple Respiratory: clear Cardiology: edema, normal S1, normal S2 Gastrointestinal: tenderness Integumentary: warm and dry, ecchymotic Neurologic: no focal deficit, alert and oriented x3 Musculoskeletal: no erythema, no cyanosis Psychiatric: mood/affect appropriate, cooperative Results - Lab Results 10/04/17 04:15 10/04/17 04:15 Most recent lab results Calcium 9.2 mg/dl (8.6-10.4) 10/04/17 04:15 Phosphorus 5.6 mg/dL (2.7-4.5) H 10/04/17 04:15 Magnesium 1.9 mg/dL (1.6-2.5) 10/04/17 04:15 Assessment and Plan (1) ESRD (end stage renal disease) on dialysis Hemodialysis today for 4 hours with 4K and UF goal 2 kg if tolerates. The patient seen and evaluated during dialysis at 15:15. Status: Chronic Priority: Medium (2) Hypokalemia 4K dialysate bath will be used. Status: Acute Priority: Medium (3) Edema UF with hemodialysis as tolerated. Status: Chronic Priority: Medium Qualifiers: Edema type: generalized Qualified Code(s): R60.1 - Generalized edema
[2017-10-04] MEDS: VANCOMYCIN ORAL SOL 1,000 MG/10 ML BOTTLE PO SCH (16:43)
[2017-10-04] MEDS: 0.9 % SODIUM CHLORIDE 1,000 ML IV SCH ×2 (17:42→20:20)
[2017-10-04] MEDS ORDERED: VANCOMYCIN ORAL SOL 1,000 MG/10 ML BOTTLE PO SCH (18:00)
--- NOTE | 2017-10-04 18:29 | General Surgery Progress Note ---
Surgical - Auxillary Note - Subjective Patient Information: Note initiated : 10/04/17 at 6:25 pm Service Date, if different from initiated Date: [] Patient: Naz Joseph 72 y/o F admitted on 10/03/17 for Diarrhea/Small Bowel Obstruction. Chief Complaint: [] Patient currently in bed receiving dialysis. Says she has been feeling better today than yesterday. Reports some flatus passed today. Abdomen is soft and nontender in upper parts. Some mild LLQ tenderness. No guarding or rebound. Continue current tx with NGT decompression and bowel rest. Passage of flatus today is promising but will move slowly. ABD xrays ordered for morning.
--- NOTE | 2017-10-04 20:30 | Internal Med Progress Note ---
Medical - PN: Subj Patient information: Note initiated : 10/04/17 at 8:27 pm Service Date, if different from initiated Date: [] Patient: Naz Joseph 72 y/o F admitted on 10/03/17 for Diarrhea/Small Bowel Obstruction. Chief Complaint: f/u SBO Interval history: 10/03 The patient is 72-year-old female with complex past medical history, end-stage renal disease on dialysis, history of hypertension, but most recently being treated with midodrine and prednisone for low blood pressures, coronary artery disease, C. difficile colitis, continuing on vancomycin who presents to the emergency department with progressive weakness, nausea, vomiting, worsening diarrhea after discharge from this facility one week ago. The patient was admitted here on 09/08, being sent over from dialysis due to low blood pressure. Was found to have a partial small bowel obstruction which resolved. Had loose stools which were positive for C. difficile. She required pressor support, though the etiology of her low blood pressure is not entirely clear but did improve after steroid administration. She was also started on oral midodrine. At discharge she was feeling "not too bad". She did okay for a couple of days. Subsequently developed nausea with bilious emesis. No blood. She didn't really have any abdominal pain. Her stools were loose when she left, however they worsened after discharge. They're watery with no blood. Due to overall worsening she presents the ED. Patient denies any fevers or chills. She is feeling short of breath, has a cough with a little bit of sputum production, though appears she does have somewhat of a chronic cough. She's noted some mild lower extremity edema, he is using compression hose. She's had some sharp chest pains with coughing, noted chest tightness/squeezing. He has not felt lightheaded. She has some urine output daily, which is unchanged. Her last hemodialysis was yesterday, which she apparently tolerated well. In the emergency department on abdominal exam she did have some discomfort. Given her history of bowel surgeries (history of gastric bypass with reversal and small bowel resection) films were obtained. Plain film showed evidence of a small bowel obstruction. This was confirmed by CT, though while it was noncontrast had findings concerning for jejunal bowel obstruction. She's continued to have loose stools as noted. She's been taking vancomycin 500 mg 4 times a day. Fidaxomicin was considered, but was not available at this facility. Given her bowel obstruction, nausea, vomiting, ongoing loose stools, she is being admitted to the hospital for further care. 10/04 Seen during the day today, as well as this evening. Had dialysis without problems. Reports she is feeling better than yesterday. No nausea or vomiting. Has not had diarrheal stools today. Mary passed some flatus. - Constitutional Vitals: Vital Signs Temp Pulse Resp BP Pulse Ox 97.3 F 72 16 95/55 97 10/04/17 19:32 10/04/17 19:32 10/04/17 19:32 10/04/17 19:32 10/04/17 16:13 Period Temp Pulse Resp BP Sys/Millan Pulse Ox Last 24 Hr 96.5 F-99.3 F 72-92 16-20 79-134/38-93 92-97 Intake and Output 10/04/17 10/04/17 10/04/17 05:59 13:59 21:59 Intake Total 515 / 515 100 / 100 545 / 545 Output Total 600 / 600 3450 / 3450 Balance -85 / -85 100 / 100 -2905 / -2905 Gen: In NAD, laying in bed Chest: clear, unlabored CV: RRR Abd: Soft, some LLQ tenderness, diminished BS throughout. No g/r Neuro: Alert, Ox3, mood better, generally weak Intake & Output: Intake & Output 10/04/17 10/04/17 10/04/17 05:59 13:59 21:59 Intake Total 515 / 515 100 / 100 545 / 545 Output Total 600 / 600 3450 / 3450 Balance -85 / -85 100 / 100 -2905 / -2905 Intake: IV 515 / 515 100 / 100 485 / 485 Sodium Chloride 0.9% 1,000 ml @ 515 / 515 0 / 0 485 / 485 75 mls/hr IV .[id number] [facility] Rx#: [id number] GI Tube Flush 60 / 60 Output: Gastric Drainage 600 / 600 50 / 50 Right Nare 600 / 600 50 / 50 Hemodialysis UF 3400 / 3400 Medical - PN: Obj Da - Labs CBC & Chem 7: 10/04/17 04:15 10/04/17 04:15 Labs: Abnormal Lab Results 10/04/17 10/04/17 10/03/17 04:15 04:15 11:32 RBC 3.54 L 3.74 L POC Hct MCV 117.1 H 116.0 H MCH 37.9 H 37.4 H RDW 23.3 H 24.4 H Plt Count 122 L 123 L Lymph % (Auto) 9.5 L Lymph # (Auto) 0.9 L [place] # (Auto) 1.0 H Band Neutrophils % 12 H Lymphocytes % 9 L RBC Morphology Abnorm A Anisocytosis 2+ A Macrocytosis 2+ A POC Sodium Sodium POC Potassium Potassium 2.6 L* POC Chloride Chloride 90 L Anion Gap 24.0 H POC BUN BUN 26 H Creatinine 4.3 H POC Creatinine Glucose 63 L POC Glucose POC WB Ioniz Calcium Phosphorus 5.6 H Direct Bilirubin 0.4 H Albumin 3.0 L 10/03/17 11:32 RBC POC Hct 49.0 H MCV MCH RDW Plt Count Lymph % (Auto) Lymph # (Auto) [place] # (Auto) Band Neutrophils % Lymphocytes % RBC Morphology Anisocytosis Macrocytosis POC Sodium 132 L Sodium 131 L POC Potassium 3.2 L Potassium POC Chloride 93 L Chloride 87 L Anion Gap 21.0 H POC BUN 26 H BUN Creatinine 3.6 H POC Creatinine 3.7 H Glucose 110 H POC Glucose 114 H POC WB Ioniz Calcium 1.02 L Phosphorus Direct Bilirubin Albumin Meds: Medications Acetaminophen (Tylenol) 650 mg PO Q6HP PRN PRN Reason: PAIN/FEVER > 101 Last Admin: 10/04/17 02:28 Dose: 650 mg Albuterol Sulfate (Ventolin) 2.5 mg NEB Q2HP PRN PRN Reason: Shortness Of Breath Albuterol/Ipratropium (Duoneb) 3 ml NEB BID [facility] Budesonide (Pulmicort) 0.5 mg NEB Q12 [facility] Famotidine (Pepcid) 20 mg IV HS BLAZE Last Admin: 10/03/17 21:30 Dose: Not Given Heparin Sodium (Porcine) (Heparin) 5,000 unit SQ Q12 [facility] Last Admin: 10/04/17 09:29 Dose: 5,000 unit Hydrocortisone Sodium Succinate (Solu-Cortef) 50 mg IV DAILY [facility]ZE Hydromorphone HCl (Dilaudid) 1 mg PO Q4HP PRN PRN Reason: Pain Last Admin: 10/04/17 04:54 Dose: 1 mg Metronidazole (Flagyl) 500 mg in 100 mls @ 100 mls/hr IV Q8H [facility] Last Admin: 10/04/17 19:20 Dose: 100 mls/hr Sodium Chloride (Sodium Chloride 0.9%) 1,000 mls @ 50 mls/hr IV .Q20H [facility] Midodrine (Midodrine Hcl) 15 mg PO TID@0800,1200,1700 [facility] Last Admin: 10/04/17 16:40 Dose: 15 mg Ondansetron HCl (Zofran) 4 mg IV Q4HP PRN PRN Reason: Nausea And Vomiting Sodium Chloride (Saline Flush) 10 ml IV Q8 [facility] Last Admin: 10/04/17 14:34 Dose: Not Given Vancomycin HCl (Vancomycin Oral Lizy) 500 mg PO Q6 [facility] Last Admin: 10/04/17 16:43 Dose: 500 ml Medical - PN: A/P - Time Spent With Patient Time spent in patient care, >50% counseling and coordination of care: Greater than 35 minutes (1) Small bowel obstruction Status: Acute Current Visit: Yes (2) C. difficile colitis Status: Acute Current Visit: Yes (3) Hypotension Status: Acute Current Visit: Yes (4) COPD (chronic obstructive pulmonary disease) Status: Chronic Current Visit: No (5) Coronary artery disease involving [place] coronary artery Status: Chronic Current Visit: No (6) ESRD (end stage renal disease) on dialysis Status: Chronic Current Visit: Yes - Narrative A/P Narrative: 72-year-old female with multiple medical problems, admitted with nausea, vomiting, ongoing loose stools, found to have changes consistent with small bowel obstruction. Small bowel obstruction. She's had previous abdominal surgeries with gastric bypass and reversal and resection, may be an anastomotic. Surgery has been consult is following the patient along. Currently will treat conservatively with bowel rest, hydration, optimize electrolytes and follow. Patient would be high risk for surgical intervention. Plan: Continue gentle hydration, NG tube, pain and nausea control, serial examinations and Abd XR Clostridium difficile colitis. Currently continuing to be treated with vancomycin. Worsening diarrhea may have been due to poor transit of the drug into the gut or not been able to keep it down over the last several days. Current C. difficile toxin assay is negative however. Stooling has improved today. Plan: Continue with vancomycin, clamping NG tube around administration periods. Continue IV metronidazole, to attempt to get further drug into the colon. Hypotension. Patient was treated for shock, felt secondary to her C. difficile last hospitalization, however remained with low blood pressure. Was started on midodrine which was titrated up, has also been on prednisone. Has had her fistula ligated in an attempt to avoid A-V shunting that might affect her blood pressure. Plan: Continue with midodrine; giving steroids as hydrocortisone 50 mg daily IV to assure dosing given SBO. COPD. No current exacerbation. Coronary artery disease, quiescent. Given the possibility of having to go to the OR, we will hold her Plavix and ASA. End-stage renal disease, has small pleural effusions, however her volume overload has improved significantly since her last hospitalization. Plan: Hemodialysis MWF per nephrology. Medical - PN: Qual - VTE Deep Vein Thrombosis/Pulmonary Embolism Present on Admission: No
[2017-10-04] MEDS: IPRATROPIUM/ALBUTEROL 3 ML AMPUL.NEB NEB SCH (20:36)
[2017-10-04] MEDS: BUDESONIDE 0.5 MG/2 ML AMPUL.NEB NEB SCH (20:36)
[2017-10-04] MEDS: FAMOTIDINE/PF 20 MG/2 ML VIAL IV SCH (20:37)
[2017-10-05] MEDS: VANCOMYCIN ORAL SOL 1,000 MG/10 ML BOTTLE PO SCH ×5 (00:20→23:32)
[2017-10-05] MEDS: ACETAMINOPHEN 325 MG TABLET PO PRN ×2 (00:32→10:39)
[2017-10-05] MEDS: metroNIDAZOLE 500 MG/100 ML BAG IV SCH ×4 (01:25→21:48)
[2017-10-05] MEDS: 0.9 % SODIUM CHLORIDE 10 ML SYRINGE IV SCH ×3 (05:53→23:33)
[2017-10-05 06:14] LABS: Basophils # (Auto) 0 K/mcL (0.0-0.3); Basophils % (Auto) 0.4 % (0.0-2.0); Eosinophils # (Auto) 0.3 K/mcL (0.0-0.7); Eosinophils % (Auto) 2.7 % (0.0-7.0); Granulocytes % (Auto) 78.7 % (38.0-78.0); Lymphocytes # (Auto) 1.2 K/mcL (1.5-4.8); Lymphocytes % (Auto) 10.3 % (15.5-49.0); Mean Cell Volume 117.9 fL (80.0-100.0); Mean Corpuscular HGB Conc 31.8 g/dL (31.0-36.0); Mean Corpuscular Hemoglobin 37.5 pg (26.0-34.0); Monocytes % (Auto) 7.9 % (1.0-12.0); Platelet Count 148 K/mcL (140-440); RBC 3.73 M/mcL (4.00-5.20); Red Cell Distribution Width 23.4 % (11.5-14.5)
[2017-10-05 07:01] LABS: ALT/SGPT < 5 U/l (0-40); Albumin/Globulin Ratio 0.9 (1.0-2.3); Alkaline Phosphatase 68 U/L (39-117); Bilirubin,Direct 0.3 mg/dL (0.0-0.3); Blood Urea Nitrogen 11 mg/dl (8-23); Gamma Glutamyl Transpeptidase 33 U/L (5-36); Uric Acid 4.3 mg/dL (2.5-8.0)
--- NOTE | 2017-10-05 07:12 | XRay Report ---
CLINICAL INFORMATION: Small bowel obstruction COMPARISON: 2017 FINDINGS: NG tube overlies the gastric body. Stomach, duodenum and proximal jejunum are now completely decompressed. Only small amounts of gas seen throughout the GI tract. No free air or soft tissue mass or organomegaly. IMPRESSION: Following NG tube placement marked decompression of the stomach and upper small bowel. Interpreted and Authenticated by: Fortino Mendoza 10/05/17
--- NOTE | 2017-10-05 07:12 | Nephrology Progress Note ---
Subjective Patient information: Note initiated : 10/05/17 at 7:10 am Naz Joseph is an 55-qcjyy-bmz female with end stage renal disease on chronic hemodialysis (through left arm AV fistula, at [facility], on TTS, followed by Dr Valentin), chronic anemia due to chronic kidney disease, secondary hyperparathyroidism, history of gout, coronary artery disease, recent septic shock due to Clostridium difficile colitis, admitted on 10/03/17 for partial small-bowel obstruction. Chief Complaint: Nausea and vomiting. Principal diagnosis: End stage renal disease on chronic hemodialysis Interval history: No significant events overnight. Pertinent ROS: Weakness. NPO with NG tube. No diarrhea. Edema. Ecchymosis. Objective - Vital Signs Vital signs: Vital Signs Temp Pulse Pulse Resp BP BP BP 10/05/17 06:45 97.4 F 16 99/71 10/05/17 03:54 98.8 F 81 16 99/74 10/05/17 00:00 100.0 F H 80 18 83/59 10/04/17 20:59 75 16 10/04/17 19:32 97.3 F 72 16 95/55 10/04/17 19:00 88 87/55 10/04/17 18:30 80 119/49 10/04/17 18:15 78 103/42 10/04/17 18:00 80 87/49 10/04/17 17:45 84 96/65 10/04/17 17:30 81 122/60 10/04/17 17:15 92 H 117/65 10/04/17 17:00 79 86/42 10/04/17 16:45 85 97/54 10/04/17 16:30 78 94/50 10/04/17 16:15 82 109/68 10/04/17 16:13 97.1 F 77 18 134/93 10/04/17 16:00 85 115/49 10/04/17 15:45 79 92/59 10/04/17 15:30 72 112/38 10/04/17 15:15 73 134/93 10/04/17 15:00 97.1 F 88 104/51 10/04/17 12:25 97.6 F 16 93/67 Pulse Ox 10/05/17 06:45 94 10/05/17 03:54 10/05/17 00:00 10/04/17 20:59 10/04/17 19:32 10/04/17 19:00 10/04/17 18:30 10/04/17 18:15 10/04/17 18:00 10/04/17 17:45 10/04/17 17:30 10/04/17 17:15 10/04/17 17:00 10/04/17 16:45 10/04/17 16:30 10/04/17 16:15 10/04/17 16:13 97 10/04/17 16:00 10/04/17 15:45 10/04/17 15:30 10/04/17 15:15 10/04/17 15:00 10/04/17 12:25 92 Intake and Output 10/04/17 10/05/17 10/05/17 21:59 05:59 13:59 Intake Total 917 / 917 150 / 150 0 / 0 Output Total 3450 / 3450 300 / 300 Balance -2533 / -2533 -150 / -150 0 / 0 Intake: IV 782 / 782 100 / 100 0 / 0 Sodium Chloride 0.9% 1,000 ml @ 682 / 682 75 mls/hr IV .[id number] [facility] Rx#: [id number] Oral 75 / 75 50 / 50 GI Tube Flush 60 / 60 Output: Gastric Drainage 50 / 50 300 / 300 Right Nare 50 / 50 300 / 300 Void Amount 0 / 0 Hemodialysis UF 3400 / 3400 Other: Weight 157 lb Intake & Output: Intake & Output 10/04/17 10/05/17 10/05/17 21:59 05:59 13:59 Intake Total 917 / 917 150 / 150 0 / 0 Output Total 3450 / 3450 300 / 300 Balance -2533 / -2533 -150 / -150 0 / 0 Weight 157 lb Intake: IV 782 / 782 100 / 100 0 / 0 Sodium Chloride 0.9% 1,000 ml @ 682 / 682 75 mls/hr IV .[id number] [facility] Rx#: [id number] Oral 75 / 75 50 / 50 GI Tube Flush 60 / 60 Output: Gastric Drainage 50 / 50 300 / 300 Right Nare 50 / 50 300 / 300 Void Amount 0 / 0 Hemodialysis UF 3400 / 3400 - General Appearance General appearance: chronically ill, frail EENT: mucous membranes moist Neck: supple Respiratory: clear Cardiology: edema, regular rate Gastrointestinal: obese Integumentary: no rash, ecchymotic Neurologic: no focal deficit, alert and oriented x3 Musculoskeletal: no erythema, no cyanosis Psychiatric: mood/affect appropriate, cooperative - Lab 10/05/17 04:05 10/05/17 04:05 Most recent lab results Calcium 9.1 mg/dl (8.6-10.4) 10/05/17 04:05 Phosphorus 3.8 mg/dL (2.7-4.5) 10/05/17 04:05 Magnesium 1.9 mg/dL (1.6-2.5) 10/05/17 04:05 Assessment and Plan (1) ESRD (end stage renal disease) on dialysis Next hemodialysis on Sunday. Status: Chronic Priority: Medium (2) Hypokalemia Status: Resolved Priority: Medium (3) Edema Status: Chronic Priority: Medium Qualifiers: Edema type: generalized Qualified Code(s): R60.1 - Generalized edema
[2017-10-05] MEDS: HEPARIN 5,000 UNIT/ML VIAL SQ SCH ×2 (09:03→21:48)
[2017-10-05] MEDS: HYDROCORTISONE SOD SUCC 100 MG VIAL IV SCH (09:03)
[2017-10-05] MEDS: MIDODRINE 5 MG TABLET PO SCH ×3 (09:03→16:53)
[2017-10-05] MEDS: IPRATROPIUM/ALBUTEROL 3 ML AMPUL.NEB NEB SCH ×2 (09:52→21:14)
[2017-10-05] MEDS: BUDESONIDE 0.5 MG/2 ML AMPUL.NEB NEB SCH ×2 (09:55→21:14)
--- NOTE | 2017-10-05 11:52 | General Surgery Progress Note ---
Surgical - Auxillary Note - Subjective Patient Information: Note initiated : 10/05/17 at 11:28 am Service Date, if different from initiated Date: [] Patient: Naz Joseph 72 y/o F admitted on 10/03/17 for Diarrhea/Small Bowel Obstruction. Chief Complaint: [] Patient resting in bed. Says she feels better. States abdomen is better and denies pain or feeling of distention in abdomen. Reports diarrhea is better. Passed more flatus yesterday evening and last night. Was dialyzed yesterday. Vital Signs Temp Pulse Resp BP Pulse Ox 99.4 F H 68 16 104/75 96 10/05/17 11:02 10/05/17 09:58 10/05/17 11:02 10/05/17 11:02 10/05/17 11:02 Period Temp Pulse Resp BP Sys/Millan Pulse Ox Last 24 Hr 97.1 F-100.0 F 68-92 13-18 83-134/38-93 92-97 Intake and Output 10/04/17 10/05/17 10/05/17 21:59 05:59 13:59 Intake Total 917 / 917 150 / 150 220 / 220 Output Total 3450 / 3450 300 / 300 Balance -2533 / -2533 -150 / -150 220 / 220 Weight 157 lb PE: No distress. Frail looking and appears tired but less so than on admit ABD: soft, non distended. Mild RLQ tenderness. LLQ tenderness not present today. No mid abdominal tenderness or distention. A/P: Febrile and increased WBCs Did receive steroid dosing yesterday which could account for some increase in WBCs but not likely the fever. Will send blood cultures. PSBO: ABD xrays show bowel decompressed. she is passing some flatus suggesting obstruction is partial. Uncertain that PSBO is the cause of fever given improved exam with decreased NGT output and passage of flatus.
[2017-10-05] MEDS: 0.9 % SODIUM CHLORIDE 1,000 ML IV SCH (16:55)
--- NOTE | 2017-10-05 18:41 | General Surgery Progress Note ---
Surgical - Auxillary Note - Subjective Patient Information: Note initiated : 10/05/17 at 6:31 pm Service Date, if different from initiated Date: [] Patient: Naz Joseph 72 y/o F admitted on 10/03/17 for Diarrhea/Small Bowel Obstruction. Chief Complaint: [] Patient resting in bed. Says she feels better than yesterday and better than this morning. Has tolerated intermittent clamping of NGT for up to one hour at a time because of medication administration; denies nausea and vomiting. Has been passing flatus thorughout today. On exam abdomen is soft and not distended. Reports lower abdominal tenderness on left and right (this seems to wax and wane). A/P: resolving c diff colitis PSBO if continues to be stable can trial longer times of NGT clamping tomorrow. Consider GI contrast study while NGT in place if question of passage through site of anastamosis noted on CT as probable point of obstruction.
[2017-10-05] MEDS: FAMOTIDINE/PF 20 MG/2 ML VIAL IV SCH (21:49)
--- NOTE | 2017-10-05 22:03 | Internal Med Progress Note ---
Medical - PN: Subj Patient information: Note initiated : 10/05/17 at 10:01 pm Service Date, if different from initiated Date: [] Patient: Naz Joseph 72 y/o F admitted on 10/03/17 for Diarrhea/Small Bowel Obstruction. Chief Complaint: f/u SBO Interval history: 10/03 The patient is 72-year-old female with complex past medical history, end-stage renal disease on dialysis, history of hypertension, but most recently being treated with midodrine and prednisone for low blood pressures, coronary artery disease, C. difficile colitis, continuing on vancomycin who presents to the emergency department with progressive weakness, nausea, vomiting, worsening diarrhea after discharge from this facility one week ago. The patient was admitted here on 09/08, being sent over from dialysis due to low blood pressure. Was found to have a partial small bowel obstruction which resolved. Had loose stools which were positive for C. difficile. She required pressor support, though the etiology of her low blood pressure is not entirely clear but did improve after steroid administration. She was also started on oral midodrine. At discharge she was feeling "not too bad". She did okay for a couple of days. Subsequently developed nausea with bilious emesis. No blood. She didn't really have any abdominal pain. Her stools were loose when she left, however they worsened after discharge. They're watery with no blood. Due to overall worsening she presents the ED. Patient denies any fevers or chills. She is feeling short of breath, has a cough with a little bit of sputum production, though appears she does have somewhat of a chronic cough. She's noted some mild lower extremity edema, he is using compression hose. She's had some sharp chest pains with coughing, noted chest tightness/squeezing. He has not felt lightheaded. She has some urine output daily, which is unchanged. Her last hemodialysis was yesterday, which she apparently tolerated well. In the emergency department on abdominal exam she did have some discomfort. Given her history of bowel surgeries (history of gastric bypass with reversal and small bowel resection) films were obtained. Plain film showed evidence of a small bowel obstruction. This was confirmed by CT, though while it was noncontrast had findings concerning for jejunal bowel obstruction. She's continued to have loose stools as noted. She's been taking vancomycin 500 mg 4 times a day. Fidaxomicin was considered, but was not available at this facility. Given her bowel obstruction, nausea, vomiting, ongoing loose stools, she is being admitted to the hospital for further care. 10/04 Seen during the day today, as well as this evening. Had dialysis without problems. Reports she is feeling better than yesterday. No nausea or vomiting. Has not had diarrheal stools today. Ditz passed some flatus. 10/05 Patient seen. Case discussed with Dr. Tripp. Still is some intermittent abdominal Pain, particularly left lower quadrant. Had fever to 100.0 last night , 99.4 midday today. No chills. Was unaware she had low-grade temperature. Cultures drawn from dialysis catheter. Remains without diarrhea. Tolerating vancomycin with NG tube clamped. Has passed flatus. - Constitutional Vitals: Vital Signs Temp Pulse Resp BP Pulse Ox 97.2 F 78 16 94/70 93 10/05/17 18:13 10/05/17 21:23 10/05/17 21:23 10/05/17 18:13 10/05/17 21:33 Period Temp Pulse Resp BP Sys/Millan Pulse Ox Last 24 Hr 97.2 F-100.0 F 68-81 13-18 83-104/59-75 93-96 Intake and Output 10/05/17 10/05/17 10/06/17 13:59 21:59 05:59 Intake Total 220 / 220 1120 / 1120 Output Total 500 / 500 Balance 220 / 220 620 / 620 Weight 157 lb 160 lb 8 oz Patient Weight 10/06/17 05:59 Weight 160 lb 8 oz General: Chronically ill-appearing, no acute distress Chest: Diminished at bases, but clear Cardiac: Regular Chest wall: Right IJ dialysis catheter with no overlying erythema. Very minimal tenderness over insertion site. Abdomen: Soft, mild to moderate left lower quadrant tenderness, mild right upper quadrant tenderness, no guarding, no rigidity, no rebound tenderness. Bowel sounds are present. Neuro: Alert, oriented, generally weak. Intake & Output: Intake & Output 10/05/17 10/05/17 10/06/17 13:59 21:59 05:59 Intake Total 220 / 220 1120 / 1120 Output Total 500 / 500 Balance 220 / 220 620 / 620 Weight 157 lb 160 lb 8 oz Intake: IV 100 / 100 900 / 900 Sodium Chloride 0.9% 1,000 ml @ 800 / 800 50 mls/hr IV .Q20H [facility] Rx#: [id number] Oral 100 / 100 GI Tube Flush 120 / 120 120 / 120 Output: Gastric Drainage 500 / 500 Right Nare 500 / 500 Medical - PN: Obj Da - Labs CBC & Chem 7: 10/05/17 04:05 10/05/17 04:05 Labs: Abnormal Lab Results 10/05/17 10/05/17 10/04/17 04:05 04:05 04:15 WBC 12.1 H RBC 3.73 L POC Hct MCV 117.9 H MCH 37.5 H RDW 23.4 H Plt Count Gran % 78.7 H Lymph % (Auto) 10.3 L Gran # 9.5 H Lymph # (Auto) 1.2 L Rosebud # (Auto) 1.0 H Band Neutrophils % Lymphocytes % RBC Morphology Anisocytosis Macrocytosis POC Sodium Sodium POC Potassium Potassium 2.6 L* POC Chloride Chloride 90 L Carbon Dioxide 21 L Anion Gap 23.0 H 24.0 H POC BUN BUN 26 H Creatinine 2.7 H 4.3 H POC Creatinine Glucose 51 L 63 L POC Glucose POC WB Ioniz Calcium Phosphorus 5.6 H Direct Bilirubin 0.4 H Albumin 3.0 L 3.0 L Albumin/Globulin Ratio 0.9 L 10/04/17 10/03/17 10/03/17 04:15 11:32 11:32 WBC RBC 3.54 L 3.74 L POC Hct 49.0 H MCV 117.1 H 116.0 H MCH 37.9 H 37.4 H RDW 23.3 H 24.4 H Plt Count 122 L 123 L Gran % Lymph % (Auto) 9.5 L Gran # Lymph # (Auto) 0.9 L Rosebud # (Auto) 1.0 H Band Neutrophils % 12 H Lymphocytes % 9 L RBC Morphology Abnorm A Anisocytosis 2+ A Macrocytosis 2+ A POC Sodium 132 L Sodium 131 L POC Potassium 3.2 L Potassium POC Chloride 93 L Chloride 87 L Carbon Dioxide Anion Gap 21.0 H POC BUN 26 H BUN Creatinine 3.6 H POC Creatinine 3.7 H Glucose 110 H POC Glucose 114 H POC WB Ioniz Calcium 1.02 L Phosphorus Direct Bilirubin Albumin Albumin/Globulin Ratio Microbiology 10/03/17 12:57 Stool Culture - Final Stool Hemorrhagic E.coli Culture - Final 10/03/17 04:15 Blood Culture - Preliminary Blood 10/03/17 21:48 Blood Culture - Preliminary Blood Meds: Medications Acetaminophen (Tylenol) 650 mg PO Q6HP PRN PRN Reason: PAIN/FEVER > 101 Last Admin: 10/05/17 10:39 Dose: 650 mg Albuterol Sulfate (Ventolin) 2.5 mg NEB Q2HP PRN PRN Reason: Shortness Of Breath Albuterol/Ipratropium (Duoneb) 3 ml NEB BID [facility] Last Admin: 10/05/17 21:14 Dose: 3 ml Budesonide (Pulmicort) 0.5 mg NEB Q12 [facility] Last Admin: 10/05/17 21:14 Dose: 0.5 mg Famotidine (Pepcid) 20 mg IV HS [facility] Last Admin: 10/05/17 21:49 Dose: 20 mg Heparin Sodium (Porcine) (Heparin) 5,000 unit SQ Q12 [facility] Last Admin: 10/05/17 21:48 Dose: 5,000 unit Hydrocortisone Sodium Succinate (Solu-Cortef) 50 mg IV DAILY [facility] Last Admin: 10/05/17 09:03 Dose: 50 mg Hydromorphone HCl (Dilaudid) 1 mg PO Q4HP PRN PRN Reason: Pain Last Admin: 10/04/17 21:42 Dose: 1 mg Metronidazole (Flagyl) 500 mg in 100 mls @ 100 mls/hr IV Q8H [facility] Last Admin: 10/05/17 21:48 Dose: 100 mls/hr Sodium Chloride (Sodium Chloride 0.9%) 1,000 mls @ 50 mls/hr IV .Q20H [facility] Last Admin: 10/05/17 16:55 Dose: 50 mls/hr Midodrine (Midodrine Hcl) 15 mg PO TID@0800,1200,1700 [facility] Last Admin: 10/05/17 16:53 Dose: 15 mg Ondansetron HCl (Zofran) 4 mg IV Q4HP PRN PRN Reason: Nausea And Vomiting Sodium Chloride (Saline Flush) 10 ml IV Q8 [facility] Last Admin: 10/05/17 14:11 Dose: Not Given Vancomycin HCl (Vancomycin Oral Lizy) 500 mg PO Q6 [facility] Last Admin: 10/05/17 16:53 Dose: 5 ml - Imaging and cardiology Abdominal x-ray Status: image reviewed by me Additional comments: IMPRESSION: Following NG tube placement marked decompression of the stomach and upper small bowel. Medical - PN: A/P (1) Small bowel obstruction Status: Acute Current Visit: Yes (2) C. difficile colitis Status: Acute Current Visit: Yes (3) Hypotension Status: Acute Current Visit: Yes (4) COPD (chronic obstructive pulmonary disease) Status: Chronic Current Visit: No (5) Coronary artery disease involving nulato coronary artery Status: Chronic Current Visit: No (6) ESRD (end stage renal disease) on dialysis Status: Chronic Current Visit: Yes - Narrative A/P Narrative: 72-year-old female with multiple medical problems, admitted with nausea, vomiting, ongoing loose stools, found to have changes consistent with small bowel obstruction. Small bowel obstruction. Improving, but concerned for persistent tenderness in LLQ and now mild leukocytosis and low grade fever. Surgery following. Currently treating conservatively with bowel rest, hydration, optimize electrolytes and follow. Patient would be high risk for surgical intervention. Anesthesia has seen the patient in case she does need to go to the OR. Hesitant to add antibiotics to the mix due to recent C. diff. Plan: Continue gentle hydration, NG tube, pain and nausea control, serial examinations and Abd XR. If WBC still elevated or exam worsens, will consider re-imaing with CT. Clostridium difficile colitis. Improving. No diarrheal stools. No fecal leukocytes currently, C. difficile assay was negative this admission. Currently continuing to be treated with vancomycin. Plan: Continue with vancomycin, clamping NG tube around administration periods. Continue IV metronidazole, to attempt to get further drug into the colon. Hypotension. Patient was treated for shock, felt secondary to her C. difficile last hospitalization, however remained with low blood pressure. Was started on midodrine which was titrated up, has also been on prednisone. Has had her fistula ligated in an attempt to avoid A-V shunting that might affect her blood pressure. Plan: Continue with midodrine; continue steroids (as hydrocortisone 50 mg daily IV) to assure dosing given SBO. COPD. No current exacerbation. Coronary artery disease, quiescent. Given the possibility of having to go to the OR, we will hold her Plavix and ASA. End-stage renal disease, has small pleural effusions, however her volume overload has improved significantly since her last hospitalization. Plan: Hemodialysis MWF per nephrology. Medical - PN: Qual - VTE Deep Vein Thrombosis/Pulmonary Embolism Present on Admission: No
[2017-10-06 05:02] LABS: Basophils # (Auto) 0 K/mcL (0.0-0.3); Basophils % (Auto) 0.1 % (0.0-2.0); Eosinophils # (Auto) 0.3 K/mcL (0.0-0.7); Eosinophils % (Auto) 2.5 % (0.0-7.0); Granulocytes % (Auto) 79.3 % (38.0-78.0); Lymphocytes # (Auto) 1.4 K/mcL (1.5-4.8); Lymphocytes % (Auto) 10.5 % (15.5-49.0); Mean Cell Volume 117.4 fL (80.0-100.0); Mean Corpuscular HGB Conc 32.1 g/dL (31.0-36.0); Mean Corpuscular Hemoglobin 37.7 pg (26.0-34.0); Monocytes % (Auto) 7.6 % (1.0-12.0); Platelet Count 172 K/mcL (140-440); RBC 3.75 M/mcL (4.00-5.20); Red Cell Distribution Width 23.6 % (11.5-14.5)
[2017-10-06 05:25] LABS: ALT/SGPT < 5 U/l (0-40); Albumin 3.2 gm/dL (3.2-5.2); Alkaline Phosphatase 67 U/L (39-117); Bilirubin,Direct 0.3 mg/dL (0.0-0.3); Blood Urea Nitrogen 19 mg/dl (8-23); Gamma Glutamyl Transpeptidase 29 U/L (5-36); Uric Acid 6.2 mg/dL (2.5-8.0)
[2017-10-06] MEDS: 0.9 % SODIUM CHLORIDE 10 ML SYRINGE IV SCH ×3 (05:31→21:32)
[2017-10-06] MEDS: metroNIDAZOLE 500 MG/100 ML BAG IV SCH ×3 (05:31→21:31)
[2017-10-06] MEDS: VANCOMYCIN ORAL SOL 1,000 MG/10 ML BOTTLE PO SCH ×4 (05:33→23:33)
[2017-10-06] MEDS: ACETAMINOPHEN 325 MG TABLET PO PRN (06:35)
[2017-10-06] MEDS: DEXTROSE 5%-NS 1,000 ML IV SCH (07:54)
--- NOTE | 2017-10-06 08:29 | Nephrology Progress Note ---
Subjective Patient information: Note initiated : 10/06/17 at 8:27 am Naz Joseph is an [id number] female with end stage renal disease on chronic hemodialysis (through left arm AV fistula, at [facility], on TTS, followed by Dr Valentin), chronic anemia due to chronic kidney disease, secondary hyperparathyroidism, history of gout, coronary artery disease, recent septic shock due to Clostridium difficile colitis, admitted on 10/03/17 for partial small-bowel obstruction. Chief Complaint: Nausea and vomiting. Principal diagnosis: End stage renal disease on chronic hemodialysis Interval history: Passing gas and had small BM. Still NPO. Pertinent ROS: Looks comfortable. Chronic edema. No shortness of breath. Objective - Vital Signs Vital signs: Vital Signs Temp Pulse Pulse Resp BP BP Pulse Ox 10/06/17 08:14 97 H 93/65 10/06/17 07:58 97.0 F 80 94/65 10/06/17 04:00 97.1 F 85 16 110/83 94 10/06/17 00:00 97.3 F 85 20 107/78 93 10/05/17 21:33 93 10/05/17 21:23 78 16 10/05/17 20:00 79 10/05/17 18:13 97.2 F 16 94/70 95 10/05/17 15:51 97.2 F 16 91/69 93 10/05/17 11:02 99.4 F H 16 104/75 96 10/05/17 10:02 95 10/05/17 09:58 68 13 Intake and Output 10/05/17 10/06/17 10/06/17 21:59 05:59 13:59 Intake Total 1120 / 1120 320 / 320 968 / 968 Output Total 500 / 500 500 / 500 Balance 620 / 620 -180 / -180 968 / 968 Intake: IV 900 / 900 100 / 100 848 / 848 Sodium Chloride 0.9% 1,000 ml @ 800 / 800 748 / 748 50 mls/hr IV .Q20H [facility] Rx#: [id number] Oral 100 / 100 220 / 220 GI Tube Flush 120 / 120 120 / 120 Output: Gastric Drainage 500 / 500 500 / 500 Right Nare 500 / 500 500 / 500 Other: Stool Size Small Stool Color Green Stool Consistency Loose # of times incontinent of 1 Bowels Weight 160 lb 8 oz Intake & Output: Intake & Output 10/05/17 10/06/17 10/06/17 21:59 05:59 13:59 Intake Total 1120 / 1120 320 / 320 968 / 968 Output Total 500 / 500 500 / 500 Balance 620 / 620 -180 / -180 968 / 968 Weight 160 lb 8 oz Intake: IV 900 / 900 100 / 100 848 / 848 Sodium Chloride 0.9% 1,000 ml @ 800 / 800 748 / 748 50 mls/hr IV .Q20H [facility] Rx#: [id number] Oral 100 / 100 220 / 220 GI Tube Flush 120 / 120 120 / 120 Output: Gastric Drainage 500 / 500 500 / 500 Right Nare 500 / 500 500 / 500 Other: Stool Size Small Stool Color Green Stool Consistency Loose # of times incontinent of 1 Bowels - General Appearance General appearance: chronically ill, frail EENT: mucous membranes moist Neck: supple Respiratory: clear Cardiology: edema Gastrointestinal: distended Integumentary: ecchymotic Neurologic: no focal deficit Musculoskeletal: no erythema, no cyanosis Psychiatric: mood/affect appropriate, cooperative - Lab 10/06/17 03:50 10/06/17 03:50 Most recent lab results Calcium 9.6 mg/dl (8.6-10.4) 10/06/17 03:50 Phosphorus 5.3 mg/dL (2.7-4.5) H 10/06/17 03:50 Magnesium 1.9 mg/dL (1.6-2.5) 10/06/17 03:50 Assessment and Plan (1) ESRD (end stage renal disease) on dialysis Hemodialysis today; 4 hours, QB/QD 400/800, dialysate CO2 40, 3 kg UF as tolerated, Heparin 2,000 units bolus, 1000 unit per hour, off last hour. The patient seen and evaluated on dialysis at 11:15. Next dialysis on Sunday. Status: Chronic Priority: Medium (2) Edema Status: Chronic Priority: Medium Qualifiers: Edema type: generalized Qualified Code(s): R60.1 - Generalized edema (3) Metabolic acidosis Status: Chronic Priority: Medium Comment: Due to kidney disease
--- NOTE | 2017-10-06 08:34 | General Surgery Progress Note ---
Surgical - Auxillary Note - Subjective Patient Information: Note initiated : 10/06/17 at 8:24 am Service Date, if different from initiated Date: [] Patient: Naz Joseph 72 y/o F admitted on 10/03/17 for Diarrhea/Small Bowel Obstruction. Chief Complaint: [] Ms. Joseph is resting in bed. About to start dialysis. Reports abdomen feels good--denies pain or nausea. Has passed a non diarrhea stool and more flatus. Nursing reports stool was of "pudding consistency". Had issues with low blood sugar yesterday. IV fluids adjusted this morning. Vital Signs Temp Pulse Resp BP Pulse Ox 97.0 F 97 H 16 93/65 94 10/06/17 07:58 10/06/17 08:14 10/06/17 04:00 10/06/17 08:14 10/06/17 04:00 Period Temp Pulse Resp BP Sys/Millan Pulse Ox Last 24 Hr 97.0 F-99.4 F 68-97 13-20 91-110/65-83 93-96 Intake and Output 10/05/17 10/06/17 10/06/17 21:59 05:59 13:59 Intake Total 1120 / 1120 320 / 320 968 / 968 Output Total 500 / 500 500 / 500 Balance 620 / 620 -180 / -180 968 / 968 Weight 160 lb 8 oz PE: General appearance: Frail appearing, seems less tired this morning than yesterday. Abdomen: non tender to palpation. No lower abdominal tenderness reported on this morning's exam. A/P: Await this morning's Xrays. Clincally seems improved from standpoint of PSBO with passage of flatus and semiformed stool. Prior Small bowel x ray from prior admission shows evidence of partial obstruction: suspected stricture at a jejunal anastamosis c/w CT findings on this admission. Contrast is seen passing beyond this site. With passing of stool and flatus now can trial longer periods of NGT clamping and see how this is tolerated. Currently is receiving afew hundred cc's of fluid with each clamping of medication administration and has tolerated this, but seems to be having residual after one hour. WBCs slightly up more this morning but no more fever overnight. Source unclear but not sure this is related to PSBO.
[2017-10-06] MEDS: MIDODRINE 5 MG TABLET PO SCH ×4 (08:44→17:43)
[2017-10-06] MEDS: BUDESONIDE 0.5 MG/2 ML AMPUL.NEB NEB SCH ×2 (09:40→20:58)
[2017-10-06] MEDS: IPRATROPIUM/ALBUTEROL 3 ML AMPUL.NEB NEB SCH ×2 (09:40→20:59)
[2017-10-06] MEDS: HEPARIN 5,000 UNIT/ML VIAL SQ SCH ×2 (10:07→21:31)
[2017-10-06] MEDS: HYDROCORTISONE SOD SUCC 100 MG VIAL IV SCH (10:07)
--- NOTE | 2017-10-06 12:58 | General Surgery Progress Note ---
Surgical - Auxillary Note - Subjective Patient Information: Note initiated : 10/06/17 at 12:43 pm Service Date, if different from initiated Date: [] Patient: Naz Joseph 72 y/o F admitted on 10/03/17 for Diarrhea/Small Bowel Obstruction. Chief Complaint: [] Patient resting in bed. Just finished dialysis. Seemed to tolerate this well. Says she has some right sided abdominal pain but no nausea or emesis. No feeling of abdominal distention. Has passed some flatus. On exam she reports tenderness to palpation on lower right abdomen along the colonic region. No distention of abdomen and not tender in other quadrants or mid abdomen. At this visit I reviewed her clinical course with the patient since last discharge. States she was trying to eat regular food at the SNF and only did ok for about a day and since has had symptoms of nausea and vomiting. Diarrhea from last admission also continued. Since this admission: Distention improved with NGT placement on admission. Has primarily reported tenderness on the right and left sides of the abdomen which waxes and wanes. Location seems along course of right and left colon. Has not been tender in upper or mid abdomen. Diarrhea stools improved over first two days of admission and starting to pass flatus. Suspect that she likely not received full dosing of oral Vanco while in SNF if she was vomiting as much as she reports and given amount pulled out with NGT placement. Since admit likely getting adequate dosing of Vanco p.o. with more controlled setting and correlates with improved stools. Pain in sides of lower abdomen may be residual from colitis. No distention with intermittent clamping of NGT for meds and passing flatus and now stool this morning. Seems reasonable to trial some increased clamping and sips of juice when she takes her oral meds. On this evaluation I placed her tube to suction which returned mostly clear colorless liquid, like water, with some pink (not red or blood). I was unaware patient had recently been medicated with oral meds. I reported this to the nurse who confirmed the pink in the canister is consistent with her medication. She will be re-dosed for this and tube clamped. Will trial juice with this med adminiatration if patient wants it and see what residuals are after 2 hours clamping. WBC increased slightly more today but patient afebrile and generally feeling well. If continues to increase with no obvious clinical correlation consider repeat CT of abdomen tomorrow.
[2017-10-06] MEDS: HYDROmorphone 2 MG TABLET PO PRN (13:58)
--- NOTE | 2017-10-06 14:05 | General Surgery Consult Note ---
History of Present Illness Patient information: Note initiated : 10/06/17 at 1:58 pm Service Date, if different from initiated Date: [] Patient: Naz Joseph 72 y/o F admitted on 10/03/17 for Diarrhea/Small Bowel Obstruction. Chief Complaint: [] Consult date: 10/06/17 Requesting physician: Mercy Pierson (Skin / wound Care) History of present illness: I know this patient from her previous admission and her treatment at wound clinic center. Admitted for abdominal pain, CRF Hemodialysis and for ongoing wound care of a post traumatic wound right anterior prepatellar area. FULL thickness skin loss with exposed quadriceps tendon at wound base. I had excised dense black eschar at last visit. This wound is being treated conservatively. Adaptic, Aquacel Ag and protective AMD gauze, Kerlix and BRANDON bandages respectively. She has scattered grade 1 to 2 skin tears forearm. THese are clean and treated with Mepilex border foam X 2 weekly Medications and Allergies Home Medications Medication Instructions Recorded Confirmed Type trazodone 100 mg tablet 250 mg PO QHS 90 Days #225 tab 09/11/16 10/04/17 Rx Ipratropium/Albuterol [Duoneb] 3 ml NEB BID ampul.neb 05/20/17 10/04/17 Rx Acetaminophen [Tylenol] 650 mg PO Q4-6HP PRN tab 05/28/17 10/04/17 Rx Vitamin D3 1,000 unit PO DAILY tab 05/28/17 10/04/17 Rx budesonide 0.5 mg/2 mL suspension 0.5 mg INHALATION Q12 #60 ml 08/29/17 Rx for nebulization fluoxetine 40 mg capsule 40 mg PO QDAY #90 cap 08/29/17 10/04/17 Rx wheelchair See Dose Instructions .ROUTE 08/29/17 09/03/17 Rx .MEDSUPPLY #1 each Sennosides [Senokot] 2 tab PO DAILY 09/09/17 10/04/17 History Midodrine [Midodrine HCl] 15 mg PO TID@0800,1200,1700 #30 tab 09/26/17 10/04/17 Rx predniSONE [Prednisone] 10 mg PO QAC #30 tab 09/26/17 10/04/17 Rx traMADol HCL/ACETAMINOPHEN 1 tab PO Q8HP PRN #20 tab 09/26/17 10/04/17 Rx [Ultracet] albuterol sulfate 2.5 mg/3 mL 2.5 mg INHALATION Q2HP PRN #180 ml 09/27/17 Rx (0.083 %) solution for nebulization cyanocobalamin (vit B-12) ER 1,000 1,000 mcg PO QDAY #30 tab 09/27/17 10/04/17 Rx mcg tablet,extended release suvorexant 10 mg tablet 10 mg PO QHS #30 tab 09/28/17 10/04/17 Rx lorazepam 0.5 mg tablet 0.5 mg PO Q4HP PRN #120 tab 10/01/17 10/04/17 Rx pantoprazole 40 mg tablet,delayed 40 mg PO BID #60 tab 10/02/17 10/04/17 Rx release aripiprazole 2 mg tablet 2 mg PO QDAY 30 Days #30 tab 10/03/17 10/04/17 Rx Aspirin 81 mg PO DAILY 10/04/17 10/04/17 History Calcium Carbonate [Tums] 500 mg CHEWED Q6HP PRN 10/04/17 10/04/17 History Ondansetron HCl [Zofran ODT] 4 mg PO Q4H PRN 10/04/17 10/04/17 History Pantoprazole [Protonix] 40 mg PO BIDAC 10/04/17 10/04/17 History Sennosides [Senokot] 1 tab PO HS 10/04/17 10/04/17 History Vancomycin Oral Lizy 250 mg PO QID 10/04/17 10/04/17 History Allergies Allergy/AdvReac Type Severity Reaction Status Date / Time codeine Allergy Mild Hives Verified 09/03/17 10:45 Oxycodone Allergy Mild Rash Verified 09/03/17 10:45 NSAIDS (Non-Steroidal Allergy Unknown Unknown Verified 09/03/17 10:45 Anti-Inflamma meperidine [From Demerol] AdvReac Mild Itching Verified 09/03/17 10:45 Exam Temp Pulse Resp BP Pulse Ox 96.6 F L 82 16 95/74 100 10/06/17 11:54 10/06/17 11:54 10/06/17 11:48 10/06/17 13:45 10/06/17 11:48 - General physical appearance well developed, well nourished, no distress, chronically ill, other ( Comfortably resting in bed at thsi time. Completed hemodialysis. ) - Eyes PERRL, normal ocular movement - ENT normal pinna, normal nares, normal mucosa, no congestion - Head Head exam IM: Present: atraumatic, normal inspection, normocephalic - Neck no masses, no bruits, no venous distension - Cardiovascular Cardiovascular exam IM: Present: normal rate and rhythm - Respiratory normal expansion, normal respiratory effort - Abdomen Abdomen: Present: soft, non tender, bowel sounds - Integumentary Present: other (Skin tears scattered Right and left foream. Ecchymoses both UE stable. RIGHT anterior knee, Prepatellar skin wound full thickness <3 CM with cirumferential undermining 5 to 7 MM. Wound base is clean with exposed tendon sheath. NO draiange and No odor. Periwound skin is at baseline for this patient. ) - Neurologic Present: normal coordination, normal sensation, other (DAMIAN) - Musculoskeletal Present: normal posture, other (REsting in bed at this time. ) - Psychiatric Present: oriented to time, oriented to person, oriented to place, speech is normal, memory intact Results - Labs 10/06/17 03:50 10/06/17 03:50 Abnormal lab results 10/06/17 10/06/17 Range/Units 03:50 03:50 WBC 13.1 H (4.5-11.0) K/mcL RBC 3.75 L (4.00-5.20) M/mcL MCV 117.4 H (80.0-100.0) fL MCH 37.7 H (26.0-34.0) pg RDW 23.6 H (11.5-14.5) % Gran % 79.3 H (38.0-78.0) % Lymph % (Auto) 10.5 L (15.5-49.0) % Gran # 10.4 H (1.8-8.0) K/mcL Lymph # (Auto) 1.4 L (1.5-4.8) K/mcL [place] # (Auto) 1.0 H (0.1-0.9) K/mcL Chloride 94 L (96-108) mmol/L Carbon Dioxide 19 L (22-30) mmol/L Anion Gap 25.0 H (8-16) Creatinine 3.5 H (0.6-1.1) mg/dl Glucose 64 L (70-105) mg/dL Phosphorus 5.3 H (2.7-4.5) mg/dL Lactate Dehydrogenase 274 H (94-250) U/L Diabetes panel 10/06/17 Range/Units 03:50 Sodium 138 (133-145) mmol/L Potassium 3.9 (3.3-5.1) mmol/L Chloride 94 L (96-108) mmol/L Carbon Dioxide 19 L (22-30) mmol/L BUN 19 (8-23) mg/dl Creatinine 3.5 H (0.6-1.1) mg/dl Glucose 64 L (70-105) mg/dL Calcium 9.6 (8.6-10.4) mg/dl AST 17 (0-37) U/l ALT < 5 (0-40) U/l Alkaline Phosphatase 67 (39-117) U/L Total Protein 6.3 (5.9-8.4) gm/dL Albumin 3.2 (3.2-5.2) gm/dL Triglycerides 109 (<150) mg/dl Calcium panel 10/06/17 Range/Units 03:50 Calcium 9.6 (8.6-10.4) mg/dl Phosphorus 5.3 H (2.7-4.5) mg/dL Albumin 3.2 (3.2-5.2) gm/dL Pituitary panel 10/06/17 Range/Units 03:50 Sodium 138 (133-145) mmol/L Potassium 3.9 (3.3-5.1) mmol/L Chloride 94 L (96-108) mmol/L Carbon Dioxide 19 L (22-30) mmol/L BUN 19 (8-23) mg/dl Creatinine 3.5 H (0.6-1.1) mg/dl Glucose 64 L (70-105) mg/dL Calcium 9.6 (8.6-10.4) mg/dl Adrenal panel 10/06/17 Range/Units 03:50 Sodium 138 (133-145) mmol/L Potassium 3.9 (3.3-5.1) mmol/L Chloride 94 L (96-108) mmol/L Carbon Dioxide 19 L (22-30) mmol/L BUN 19 (8-23) mg/dl Creatinine 3.5 H (0.6-1.1) mg/dl Glucose 64 L (70-105) mg/dL Calcium 9.6 (8.6-10.4) mg/dl Total Bilirubin 0.8 (0.0-1.0) mg/dL AST 17 (0-37) U/l ALT < 5 (0-40) U/l Alkaline Phosphatase 67 (39-117) U/L Total Protein 6.3 (5.9-8.4) gm/dL Albumin 3.2 (3.2-5.2) gm/dL All other labs normal. Assessment and Plan (1) Skin abnormalities Assessment: Skin tears both UE Conservative management with Mepilex bordered foam Open wound antrior aspect of RIGHT knee prepatellar area . Exposed quadriceps tendon. Plan; Mepilex bordered foam for skin tears. Adaptic, Aquacel AG sheet and gauze, Kerlix and Brandon dressings for Right anterior knee area, Bi Weekly. After discharge f/u at wound care center in ONE week. Will see this patient in hospital as PRN basis. Status: Acute
--- NOTE | 2017-10-06 17:20 | XRay Report ---
CLINICAL INFORMATION: Follow small bowel obstruction COMPARISON: 10/05/2017 FINDINGS: NG tube in stable satisfactory position. Stool gas pattern is normal stomach and upper small bowel are relatively decompressed. There is normal amount of gas seen in the distal small bowel and colon. No free air, small bilateral pleural effusions mild bibasilar atelectasis noted. IMPRESSION: Complete resolution - upper small bowel obstruction. Interpreted and Authenticated by: Fortino Mendoza 10/06/17
--- NOTE | 2017-10-06 18:28 | General Surgery Progress Note ---
Surgical - Auxillary Note - Subjective Patient Information: Note initiated : 10/06/17 at 6:24 pm Service Date, if different from initiated Date: [] Patient: Naz Joseph 72 y/o F admitted on 10/03/17 for Diarrhea/Small Bowel Obstruction. Chief Complaint: [] Ms. Joseph is resting in bed. Reports she feels better but notes some pain in RLQ at same place as previously. On exam this area is tender but no guarding and remainder of abdomen is non tender and non distended. ABD Xrays done and show no air fluid levels and what appears to be resolution of the PSBO. RLQ pain etiology uncertain. She does have fluid in the RT abdomen on CT which was read as unchanged from prior imaging. Will discuss finding with radiologist (abscess vs ascities?) May need repeat imaging with contrast but will need to discuss with nephrology regarding use of IV contrast.
--- NOTE | 2017-10-06 20:13 | Internal Med Progress Note ---
Medical - PN: Subj Patient information: Note initiated : 10/06/17 at 8:10 pm Service Date, if different from initiated Date: [] Patient: Naz Joseph 72 y/o F admitted on 10/03/17 for Diarrhea/Small Bowel Obstruction. Chief Complaint: f/u SBO, C diff Interval history: 10/03 The patient is 72-year-old female with complex past medical history, end-stage renal disease on dialysis, history of hypertension, but most recently being treated with midodrine and prednisone for low blood pressures, coronary artery disease, C. difficile colitis, continuing on vancomycin who presents to the emergency department with progressive weakness, nausea, vomiting, worsening diarrhea after discharge from this facility one week ago. The patient was admitted here on 09/08, being sent over from dialysis due to low blood pressure. Was found to have a partial small bowel obstruction which resolved. Had loose stools which were positive for C. difficile. She required pressor support, though the etiology of her low blood pressure is not entirely clear but did improve after steroid administration. She was also started on oral midodrine. At discharge she was feeling "not too bad". She did okay for a couple of days. Subsequently developed nausea with bilious emesis. No blood. She didn't really have any abdominal pain. Her stools were loose when she left, however they worsened after discharge. They're watery with no blood. Due to overall worsening she presents the ED. Patient denies any fevers or chills. She is feeling short of breath, has a cough with a little bit of sputum production, though appears she does have somewhat of a chronic cough. She's noted some mild lower extremity edema, he is using compression hose. She's had some sharp chest pains with coughing, noted chest tightness/squeezing. He has not felt lightheaded. She has some urine output daily, which is unchanged. Her last hemodialysis was yesterday, which she apparently tolerated well. In the emergency department on abdominal exam she did have some discomfort. Given her history of bowel surgeries (history of gastric bypass with reversal and small bowel resection) films were obtained. Plain film showed evidence of a small bowel obstruction. This was confirmed by CT, though while it was noncontrast had findings concerning for jejunal bowel obstruction. She's continued to have loose stools as noted. She's been taking vancomycin 500 mg 4 times a day. Fidaxomicin was considered, but was not available at this facility. Given her bowel obstruction, nausea, vomiting, ongoing loose stools, she is being admitted to the hospital for further care. 10/04 Seen during the day today, as well as this evening. Had dialysis without problems. Reports she is feeling better than yesterday. No nausea or vomiting. Has not had diarrheal stools today. Ditz passed some flatus. 10/05 Patient seen. Case discussed with Dr. Tripp. Still is some intermittent abdominal Pain, particularly left lower quadrant. Had fever to 100.0 last night , 99.4 midday today. No chills. Was unaware she had low-grade temperature. Cultures drawn from dialysis catheter. Remains without diarrhea. Tolerating vancomycin with NG tube clamped. Has passed flatus. 10/06 Patient seen and examined on rounds. Discussed with Dr. Tripp. Continues to have waxing and waning left lower quadrant and right upper quadrant tenderness. Has had 2 small soft BMs and one smear. Continuing to pass flatus. Has tolerated clamping of NG tube for up to 2 hours. Abdominal films show improvement. However white count is 13,000, and she still has the wax/waning abdominal pain. - Constitutional Vitals: Vital Signs Temp Pulse Resp BP Pulse Ox 97.5 F 82 16 97/70 95 10/06/17 19:48 10/06/17 11:54 10/06/17 19:48 10/06/17 19:48 10/06/17 19:48 Period Temp Pulse Resp BP Sys/Millan Pulse Ox Last 24 Hr 96.6 F-98.3 F 72-97 16-20 71-117/47-83 93-100 Intake and Output 10/06/17 10/06/17 10/06/17 05:59 13:59 21:59 Intake Total 320 / 320 1088 / 1088 407 / 407 Output Total 500 / 500 950 / 950 Balance -180 / -180 138 / 138 407 / 407 Weight 160 lb 8 oz Patient Weight 10/07/17 05:59 Weight 160 lb 8 oz General: In bed, looks improved, comfortable Chest: Diminished bases, otherwise clear Cardiovascular: Regular, no edema (in MADDIE hose) Abdomen: Soft, bowel sounds present. Mild to moderate right upper quadrant tenderness without guarding or rebound. At my exam, no left lower quadrant tenderness. Neuro: Alert, oriented, generally weak. Intake & Output: Intake & Output 10/06/17 10/06/17 10/06/17 05:59 13:59 21:59 Intake Total 320 / 320 1088 / 1088 407 / 407 Output Total 500 / 500 950 / 950 Balance -180 / -180 138 / 138 407 / 407 Weight 160 lb 8 oz Intake: IV 100 / 100 848 / 848 407 / 407 Sodium Chloride 0.9% 1,000 ml @ 748 / 748 50 mls/hr IV .Q20H BLAZE Rx#: [id number] Dextrose 5%-Ns IV Solution 1, 307 / 307 000 ml @ 50 mls/hr IV .Q20H BLAZE Rx#:[id number] Oral 220 / 220 GI Tube Flush 240 / 240 Output: Gastric Drainage 500 / 500 Right Nare 500 / 500 Hemodialysis UF 950 / 950 Other: Stool Size Smear Small Stool Color Green Brown Stool Consistency Loose Soft # Bowel Movements 1 # of times incontinent of 1 1 Bowels Medical - PN: Obj Da - Labs CBC & Chem 7: 10/06/17 03:50 10/06/17 03:50 Labs: Abnormal Lab Results 10/06/17 10/06/17 10/05/17 03:50 03:50 04:05 WBC 13.1 H RBC 3.75 L MCV 117.4 H MCH 37.7 H RDW 23.6 H Plt Count Gran % 79.3 H Lymph % (Auto) 10.5 L Gran # 10.4 H Lymph # (Auto) 1.4 L [place] # (Auto) 1.0 H Potassium Chloride 94 L Carbon Dioxide 19 L 21 L Anion Gap 25.0 H 23.0 H BUN Creatinine 3.5 H 2.7 H Glucose 64 L 51 L Phosphorus 5.3 H Direct Bilirubin Lactate Dehydrogenase 274 H Albumin 3.0 L Albumin/Globulin Ratio 0.9 L 10/05/17 10/04/17 10/04/17 04:05 04:15 04:15 WBC 12.1 H RBC 3.73 L 3.54 L MCV 117.9 H 117.1 H MCH 37.5 H 37.9 H RDW 23.4 H 23.3 H Plt Count 122 L Gran % 78.7 H Lymph % (Auto) 10.3 L 9.5 L Gran # 9.5 H Lymph # (Auto) 1.2 L 0.9 L [place] # (Auto) 1.0 H 1.0 H Potassium 2.6 L* Chloride 90 L Carbon Dioxide Anion Gap 24.0 H BUN 26 H Creatinine 4.3 H Glucose 63 L Phosphorus 5.6 H Direct Bilirubin 0.4 H Lactate Dehydrogenase Albumin 3.0 L Albumin/Globulin Ratio [facility] 10/05/17 10:15 Blood Culture - Preliminary Blood 10/05/17 10:23 Blood Culture - Preliminary Blood 10/03/17 04:15 Blood Culture - Preliminary Blood 10/03/17 21:48 Blood Culture - Preliminary Blood Meds: Medications Acetaminophen (Tylenol) 650 mg PO Q6HP PRN PRN Reason: PAIN/FEVER > 101 Last Admin: 10/06/17 06:35 Dose: 650 mg Albuterol Sulfate (Ventolin) 2.5 mg NEB Q2HP PRN PRN Reason: Shortness Of Breath Albuterol/Ipratropium (Duoneb) 3 ml NEB BID [facility] Last Admin: 10/06/17 09:40 Dose: 3 ml Budesonide (Pulmicort) 0.5 mg NEB Q12 BLAZE Last Admin: 10/06/17 09:40 Dose: 0.5 mg Famotidine (Pepcid) 20 mg IV HS [facility] Last Admin: 10/05/17 21:49 Dose: 20 mg Heparin Sodium (Porcine) (Heparin) 5,000 unit SQ Q12 [facility] Last Admin: 10/06/17 10:07 Dose: 5,000 unit Hydrocortisone Sodium Succinate (Solu-Cortef) 50 mg IV DAILY [facility] Last Admin: 10/06/17 10:07 Dose: 50 mg Hydromorphone HCl (Dilaudid) 1 mg PO Q4HP PRN PRN Reason: Pain Last Admin: 10/06/17 13:58 Dose: 1 mg Metronidazole (Flagyl) 500 mg in 100 mls @ 100 mls/hr IV Q8H [facility] Last Infusion: 10/06/17 15:10 Dose: Infused Dextrose/Sodium Chloride (Dextrose 5%-Ns Iv Solution) 1,000 mls @ 50 mls/hr IV .Q20H [facility] Last Infusion: 10/06/17 15:10 Dose: 50 mls/hr Midodrine (Midodrine Hcl) 15 mg PO TID@0800,1200,1700 [facility] Last Admin: 10/06/17 17:43 Dose: 15 mg Ondansetron HCl (Zofran) 4 mg IV Q4HP PRN PRN Reason: Nausea And Vomiting Sodium Chloride (Saline Flush) 10 ml IV Q8 [facility] Last Admin: 10/06/17 14:00 Dose: Not Given Vancomycin HCl (Vancomycin Oral Lizy) 500 mg PO Q6 [facility] Last Admin: 10/06/17 17:43 Dose: 5 ml - Imaging and cardiology Abdominal x-ray Status: image reviewed by me Additional comments: FINDINGS: NG tube in stable satisfactory position. Stool gas pattern is normal stomach and upper small bowel are relatively decompressed. There is normal amount of gas seen in the distal small bowel and colon. No free air, small bilateral pleural effusions mild bibasilar atelectasis noted. IMPRESSION: Complete resolution - upper small bowel obstruction. Medical - PN: A/P - Time Spent With Patient Total time spent is greater than 50% in coordination of care (as documented) at patient's floor/unit and/or counseling patient: 25 - 35 minutes (1) Small bowel obstruction Status: Acute Current Visit: Yes (2) C. difficile colitis Status: Acute Current Visit: Yes (3) Hypotension Status: Acute Current Visit: Yes (4) COPD (chronic obstructive pulmonary disease) Status: Chronic Current Visit: No (5) Coronary artery disease involving [place] coronary artery Status: Chronic Current Visit: No (6) ESRD (end stage renal disease) on dialysis Status: Chronic Current Visit: Yes - Narrative A/P Narrative: 72-year-old female with multiple medical problems, admitted with nausea, vomiting, ongoing loose stools, found to have changes consistent with small bowel obstruction. Small bowel obstruction. Improving/resolved. However, still with persistent wax/wane tenderness in LLQ and RUQ. WBC up a bit to 13k range, but no further fever. Surgery following. Agree w/ Dr. Tripp, this may be pain from colitis as C difficile disease is being treated. Patient would be high risk for surgical intervention. Anesthesia has seen the patient in case she does need to go to the OR. Continue to be hesitant to add antibiotics to the mix due to recent C. diff. Plan: Continue gentle hydration; NG tube with increased periods of clamping; pain and nausea control; serial examinations and Abd XR. If WBC still elevated , given LLQ and RUQ exam finding, will likely need re-imaing with CT, optimally with PO and IV contrast (though would have to coordinate with HD). Clostridium difficile colitis. Improving. No diarrheal stools. No fecal leukocytes at admission and C. difficile assay was negative. Currently continuing to be treated with vancomycin. May have been undertreated at [facility] due to N/V and SBO without adequate drug delivery to the colon. Plan: Continue with vancomycin, clamping NG tube around administration periods. Continue IV metronidazole, to attempt to get further drug into the colon. Hypotension. Patient was treated for shock, felt secondary to her C. difficile last hospitalization, however remained with low blood pressure. Was started on midodrine which was titrated up, has also been on prednisone. Has had her fistula ligated in an attempt to avoid A-V shunting that might affect her blood pressure. Plan: Continue with midodrine; continue steroids (as hydrocortisone 50 mg daily IV) to assure dosing given SBO. COPD. No current exacerbation. Coronary artery disease, quiescent. Given the possibility of having to go to the OR, we will hold her Plavix and ASA. End-stage renal disease, has small pleural effusions, however her volume overload has improved significantly since her last hospitalization. Plan: Hemodialysis MWF and PRN per nephrology. Medical - PN: Qual - VTE Deep Vein Thrombosis/Pulmonary Embolism Present on Admission: No
[2017-10-06] MEDS: FAMOTIDINE/PF 20 MG/2 ML VIAL IV SCH (21:40)
[2017-10-07] MEDS: 0.9 % SODIUM CHLORIDE 10 ML SYRINGE IV SCH ×3 (04:57→22:08)
[2017-10-07 05:17] LABS: Basophils # (Auto) 0 K/mcL (0.0-0.3); Basophils % (Auto) 0.3 % (0.0-2.0); Eosinophils # (Auto) 0.2 K/mcL (0.0-0.7); Granulocytes % (Auto) 75.2 % (38.0-78.0); Lymphocytes # (Auto) 1.7 K/mcL (1.5-4.8); Lymphocytes % (Auto) 13.9 % (15.5-49.0); Mean Corpuscular HGB Conc 31.7 g/dL (31.0-36.0); Mean Corpuscular Hemoglobin 37.1 pg (26.0-34.0); Monocytes # (Auto) 1.1 K/mcL (0.1-0.9); Monocytes % (Auto) 8.6 % (1.0-12.0); Platelet Count 179 K/mcL (140-440); RBC 3.86 M/mcL (4.00-5.20); Red Cell Distribution Width 22.5 % (11.5-14.5)
[2017-10-07] MEDS: VANCOMYCIN ORAL SOL 1,000 MG/10 ML BOTTLE PO SCH ×4 (05:34→23:45)
[2017-10-07] MEDS: metroNIDAZOLE 500 MG/100 ML BAG IV SCH ×3 (05:34→22:07)
[2017-10-07 05:38] LABS: ALT/SGPT 6 U/l (0-40); Albumin 3.1 gm/dL (3.2-5.2); Albumin/Globulin Ratio 1.1 (1.0-2.3); Alkaline Phosphatase 67 U/L (39-117); Bilirubin,Direct 0.4 mg/dL (0.0-0.3); Blood Urea Nitrogen 9 mg/dl (8-23); Gamma Glutamyl Transpeptidase 30 U/L (5-36); Uric Acid 4.3 mg/dL (2.5-8.0)
[2017-10-07] MEDS: DEXTROSE 5%-NS 1,000 ML IV SCH ×2 (06:45→23:46)
--- NOTE | 2017-10-07 07:03 | Nephrology Progress Note ---
Subjective Patient information: Note initiated : 10/07/17 at 7:01 am Naz Joseph is an [id number] female with end stage renal disease on chronic hemodialysis (through left arm AV fistula, at [facility], on TTS, followed by Dr Valentin), chronic anemia due to chronic kidney disease, secondary hyperparathyroidism, history of gout, coronary artery disease, recent septic shock due to Clostridium difficile colitis, admitted on 10/03/17 for partial small-bowel obstruction. Chief Complaint: Nausea and vomiting. Principal diagnosis: End stage renal disease on chronic hemodialysis Interval history: PE by CTA. Pertinent ROS: Weakness. NPO with NG tube. Edema. Wounds. Ecchymosis. Objective - Vital Signs Vital signs: Vital Signs Temp Pulse Pulse Resp BP BP Pulse Ox 10/07/17 04:00 97.7 F 74 16 101/72 94 10/07/17 00:00 79 18 93/79 94 10/06/17 21:13 77 16 98 10/06/17 19:48 97.5 F 16 97/70 95 10/06/17 15:33 98.3 F 16 101/73 94 10/06/17 13:45 95/74 10/06/17 11:54 96.6 F L 82 92/60 10/06/17 11:48 97.2 F 16 71/49 100 10/06/17 11:43 72 71/49 10/06/17 11:29 87 83/47 10/06/17 11:14 86 73/59 10/06/17 10:58 86 93/66 10/06/17 10:44 80 87/56 10/06/17 10:31 78 86/67 10/06/17 10:15 81 97/72 10/06/17 10:03 94 H 117/57 10/06/17 09:46 81 97/64 10/06/17 09:40 82 18 10/06/17 09:31 89 85/52 10/06/17 09:13 81 83/53 10/06/17 09:01 81 79/57 10/06/17 08:44 79 78/52 10/06/17 08:29 79 87/63 10/06/17 08:14 97 H 93/65 10/06/17 07:58 97.0 F 80 94/65 Intake and Output 10/06/17 10/07/1718 21:59 05:59 13:59 Intake Total 407 / 407 340 / 340 693 / 693 Balance 407 / 407 340 / 340 693 / 693 Intake: IV 407 / 407 100 / 100 693 / 693 Dextrose 5%-Ns IV Solution 1, 307 / 307 693 / 693 000 ml @ 50 mls/hr IV .Q20H BLAZE Rx#:[id number] Oral 240 / 240 Other: Stool Size Small Stool Color Green Stool Consistency Soft # Bowel Movements 1 # of times incontinent of 1 Bowels Weight 160 lb 8 oz Intake & Output: Intake & Output 10/06/17 10/07/17 10/07/17 21:59 05:59 13:59 Intake Total 407 / 407 340 / 340 693 / 693 Balance 407 / 407 340 / 340 693 / 693 Weight 160 lb 8 oz Intake: IV 407 / 407 100 / 100 693 / 693 Dextrose 5%-Ns IV Solution 1, 307 / 307 693 / 693 000 ml @ 50 mls/hr IV .Q20H BLAZE Rx#:[id number] Oral 240 / 240 Other: Stool Size Small Stool Color Green Stool Consistency Soft # Bowel Movements 1 # of times incontinent of 1 Bowels - General Appearance General appearance: chronically ill, fatigue, frail EENT: mucous membranes moist Neck: supple Respiratory: clear Cardiology: edema Gastrointestinal: distended Integumentary: ecchymotic Neurologic: no focal deficit, alert and oriented x3 Musculoskeletal: no deformities Psychiatric: mood/affect appropriate, cooperative - Lab 10/07/17 04:33 10/07/17 04:33 Most recent lab results Calcium 9.3 mg/dl (8.6-10.4) 10/07/17 04:33 Phosphorus 3.2 mg/dL (2.7-4.5) 10/07/17 04:33 Magnesium 1.9 mg/dL (1.6-2.5) 10/07/17 04:33 Assessment and Plan (1) ESRD (end stage renal disease) on dialysis Next dialysis on Sunday. Status: Chronic Priority: Medium (2) Edema Status: Chronic Priority: Medium Qualifiers: Edema type: generalized Qualified Code(s): R60.1 - Generalized edema (3) Metabolic acidosis Status: Resolved Priority: Medium Comment: Due to kidney disease (4) Hypochloremia Likely due to gastric loss of hydrogen chloride and correction of hydrogen loss with hemodialysis. Status: Acute Priority: Medium
--- NOTE | 2017-10-07 08:59 | General Surgery Progress Note ---
Surgical - Auxillary Note - Subjective Patient Information: Note initiated : 10/07/17 at 8:50 am Service Date, if different from initiated Date: [] Patient: Naz Joseph 72 y/o F admitted on 10/03/17 for Diarrhea/Small Bowel Obstruction. Chief Complaint: [] Ms. Joseph is resting in bed. States she feels weak. Denies any lightheadedness, SOB, or chest pain. Denies abdominal pain, nausea, or emesis. Only c/o weakness. Vital Signs Temp Pulse Resp BP Pulse Ox 97.1 F 80 14 97/54 94 10/07/17 07:19 10/07/17 07:19 10/07/17 07:19 10/07/17 07:19 10/07/17 04:00 Period Temp Pulse Resp BP Sys/Millan Pulse Ox Last 24 Hr 96.6 F-98.3 F 72-94 14-18 71-117/47-79 94-100 Intake and Output 10/06/17 10/07/17 10/07/17 21:59 05:59 13:59 Intake Total 407 / 407 340 / 340 693 / 693 Balance 407 / 407 340 / 340 693 / 693 Weight 160 lb 8 oz PE: Appears tired. Chest: clear in upper mendez. Diminished at bases R>L with some rales present on right. Abd: non distended. soft. RLQ tenderness same as yesterday--no worse but no better also with some LLQ tenderness this morning. Mid abdomen and upper abdomen non tender to palpation. No rebound or guarding. CBC and Chem 7 10/07/17 04:33 10/07/17 04:33 A/P: PSBO: seemingly resolved on xrays yesterday but generally not feeling well today which is a change from yesterday. WBCs slightly improved and afebrile. Blood cx without growth to date. Abdominal exam unchanged and without clear findings especially in light of recent Cdiff infection. Will repeat CT scan this a.m. Discussed IV contrast with Dr. Bynum from nephrology and he says this should be ok and will plan dialysis within 24 hrs. Also discussed with Dr. Pierson.
[2017-10-07] MEDS: IPRATROPIUM/ALBUTEROL 3 ML AMPUL.NEB NEB SCH ×2 (09:23→21:09)
[2017-10-07] MEDS: BUDESONIDE 0.5 MG/2 ML AMPUL.NEB NEB SCH ×2 (09:23→21:09)
[2017-10-07] MEDS ORDERED: IOPAMIDOL 100 ML BOTTLE IV ONE (09:53)
[2017-10-07] MEDS: MIDODRINE 5 MG TABLET PO SCH ×3 (10:26→16:33)
[2017-10-07] MEDS: HYDROCORTISONE SOD SUCC 100 MG VIAL IV SCH (10:26)
[2017-10-07] MEDS: HEPARIN 5,000 UNIT/ML VIAL SQ SCH ×2 (10:26→20:42)
--- NOTE | 2017-10-07 11:11 | General Surgery Progress Note ---
Surgical - Auxillary Note - Subjective Patient Information: Note initiated : 10/07/17 at 11:05 am Service Date, if different from initiated Date: [] Patient: Naz Joseph 72 y/o F admitted on 10/03/17 for Diarrhea/Small Bowel Obstruction. Chief Complaint: [] Report of CT called in by Dr. Tovar in radiology. CT shows PEs and increased bilateral pleural effusions. Also has some increased intraabdominal ascites. Bowel decompressed, no sign of ongoing obstruction. No free air. Findings discussed with Drs. Pierson and Misa. Dr. Pierson and I discussed CT findings with patient and in consideration of overall clinical course over past few months. Discussed her wishes regarding aggressiveness of care. At this point she stated that she would not want anything to aggressive and stated she wants to just be comfortable. The question of continued dialysis came up and as of this conversation she was unsure regarding stopping this vs. continuing. At this point while deciding further on this seems reasonable to leave NGT in. Suspect finding of partial obstruction likely to recur with regular diet but can trial some liquid p.o. intake and see how she does. If not tolerated then already have NGT in place for decompression.
[2017-10-07] MEDS: HYDROmorphone 2 MG TABLET PO PRN ×3 (12:39→20:41)
--- NOTE | 2017-10-07 16:09 | General Surgery Progress Note ---
Surgical - Auxillary Note - Subjective Patient Information: Note initiated : 10/07/17 at 4:03 pm Service Date, if different from initiated Date: [] Patient: Naz Joseph 72 y/o F admitted on 10/03/17 for Diarrhea/Small Bowel Obstruction. Chief Complaint: [] Ms. Joseph is sitting up in bed chatting with a friend. Reports no abdominal pain. Decided on comfort care earlier and avoiding more invasive interventions. Subsequent discussions between the patient and the hospitalist were had and she has decided against heparin therapy for treatment of her PEs She will continue with dialysis at this time. Given prior partial obstruction and recent recurrence suspect she will not tolerate a regular diet so will trial liquids p.o./NGT and see how tolerated with clamping while receiving her medications. Can slowly increase this if showing signs that this is tolerated. As per our last conversation if obstructive symptoms recur have NGT already in place for decompression.
--- NOTE | 2017-10-07 16:47 | Internal Med Progress Note ---
Medical - PN: Subj Patient information: Note initiated : 10/07/17 at 4:43 pm Service Date, if different from initiated Date: [] Patient: Naz Joseph 72 y/o F admitted on 10/03/17 for Diarrhea/Small Bowel Obstruction. Chief Complaint: f/u SBO, ESRD, C Diff Interval history: 10/03 The patient is 72-year-old female with complex past medical history, end-stage renal disease on dialysis, history of hypertension, but most recently being treated with midodrine and prednisone for low blood pressures, coronary artery disease, C. difficile colitis, continuing on vancomycin who presents to the emergency department with progressive weakness, nausea, vomiting, worsening diarrhea after discharge from this facility one week ago. The patient was admitted here on 09/08, being sent over from dialysis due to low blood pressure. Was found to have a partial small bowel obstruction which resolved. Had loose stools which were positive for C. difficile. She required pressor support, though the etiology of her low blood pressure is not entirely clear but did improve after steroid administration. She was also started on oral midodrine. At discharge she was feeling "not too bad". She did okay for a couple of days. Subsequently developed nausea with bilious emesis. No blood. She didn't really have any abdominal pain. Her stools were loose when she left, however they worsened after discharge. They're watery with no blood. Due to overall worsening she presents the ED. Patient denies any fevers or chills. She is feeling short of breath, has a cough with a little bit of sputum production, though appears she does have somewhat of a chronic cough. She's noted some mild lower extremity edema, he is using compression hose. She's had some sharp chest pains with coughing, noted chest tightness/squeezing. He has not felt lightheaded. She has some urine output daily, which is unchanged. Her last hemodialysis was yesterday, which she apparently tolerated well. In the emergency department on abdominal exam she did have some discomfort. Given her history of bowel surgeries (history of gastric bypass with reversal and small bowel resection) films were obtained. Plain film showed evidence of a small bowel obstruction. This was confirmed by CT, though while it was noncontrast had findings concerning for jejunal bowel obstruction. She's continued to have loose stools as noted. She's been taking vancomycin 500 mg 4 times a day. Fidaxomicin was considered, but was not available at this facility. Given her bowel obstruction, nausea, vomiting, ongoing loose stools, she is being admitted to the hospital for further care. 10/04 Seen during the day today, as well as this evening. Had dialysis without problems. Reports she is feeling better than yesterday. No nausea or vomiting. Has not had diarrheal stools today. Ditz passed some flatus. 10/05 Patient seen. Case discussed with Dr. Tripp. Still is some intermittent abdominal Pain, particularly left lower quadrant. Had fever to 100.0 last night , 99.4 midday today. No chills. Was unaware she had low-grade temperature. Cultures drawn from dialysis catheter. Remains without diarrhea. Tolerating vancomycin with NG tube clamped. Has passed flatus. 10/06 Patient seen and examined on rounds. Discussed with Dr. Tripp. Continues to have waxing and waning left lower quadrant and right upper quadrant tenderness. Has had 2 small soft BMs and one smear. Continuing to pass flatus. Has tolerated clamping of NG tube for up to 2 hours. Abdominal films show improvement. However white count is 13,000, and she still has the wax/waning abdominal pain. 10/07 Patient seen on rounds with Dr. Tripp as well as Carmela from case management. She continue to have wax/wane pain in the right upper and left lower regions. New findings on CT today show pulmonary emboli. Also has increasing pleural effusions and free ascites. Some increased right upper quadrant fluid as well. No perforation, her bowels decompressed however. Goals of care discussed with the patient. I outlined what I've seen her medical course with progressive decline in functional and physical status. She' s had recurrent small bowel obstructions, currently receiving oral vasopressors for chronic low blood pressure, had C. difficile colitis. Quite concerned that treatment with heparins were pulmonary emboli would lead to further complications, wanted her to be fully aware of that before any decision was made to start anticoagulation. Based on her course over the last 2 months, my opinion was that she would likely be unable to return to living independently, likely needing almost full-time care. I expressed that I felt her long-term prognosis was limited. After discussion, the patient stated that she has wanted to be kept comfortable. After further clarification, she did not wish to receive heparin for treatment of pulmonary emboli. In regards to her small bowel obstruction she would like to take a conservative approach to see if she could be able to start taking in oral nutrition. She is hesitant to stop dialysis at this point , realizing it may just be prolonging a dying process. Without dialysis, Dr. Bynum felt her prognosis was in the range of 7-10 days. With dialysis, I expect a prognosis of less than 6 months, possibly only a month or less. - Constitutional Vitals: Vital Signs Temp Pulse Resp BP Pulse Ox 97.4 F 80 16 105/75 94 10/07/17 15:23 10/07/17 09:28 10/07/17 15:23 10/07/17 15:23 10/07/17 15:23 Period Temp Pulse Resp BP Sys/Millan Pulse Ox Last 24 Hr 97.1 F-98.5 F 74-80 14-18 93-105/54-79 93-98 Intake and Output 10/07/17 10/07/17 10/07/17 05:59 13:59 21:59 Intake Total 340 / 340 793 / 793 100 / 100 Balance 340 / 340 793 / 793 100 / 100 General: Chronically ill-appearing Chest: Diminished at bases, worse on the right Cardiovascular: Regular Abdomen: Soft, no current tenderness Skin: Multiple skin tears and abrasions, dressed Neuro: Alert, oriented to person, place, situation. Comprehends and has insight into her current medical condition. Intake & Output: Intake & Output 10/07/17 10/07/17 10/07/17 05:59 13:59 21:59 Intake Total 340 / 340 793 / 793 100 / 100 Balance 340 / 340 793 / 793 100 / 100 Intake: IV 100 / 100 793 / 793 100 / 100 Dextrose 5%-Ns IV Solution 1, 693 / 693 000 ml @ 50 mls/hr IV .Q20H [facility] Rx#:[id number] Oral 240 / 240 Medical - PN: Obj Da - Labs CBC & Chem 7: 10/07/17 04:33 10/07/17 04:33 Labs: Abnormal Lab Results 10/07/17 10/07/17 10/06/17 04:33 04:33 03:50 WBC 12.2 H RBC 3.86 L MCV 117.0 H MCH 37.1 H RDW 22.5 H Gran % Lymph % (Auto) 13.9 L Gran # 9.2 H Lymph # (Auto) [place] # (Auto) 1.1 H Chloride 94 L 94 L Carbon Dioxide 19 L Anion Gap 20.0 H 25.0 H Creatinine 2.4 H 3.5 H Glucose 134 H 64 L Phosphorus 5.3 H Direct Bilirubin 0.4 H Lactate Dehydrogenase 257 H 274 H Albumin 3.1 L Albumin/Globulin Ratio 10/06/17 10/05/17 10/05/17 03:50 04:05 04:05 WBC 13.1 H 12.1 H RBC 3.75 L 3.73 L MCV 117.4 H 117.9 H MCH 37.7 H 37.5 H RDW 23.6 H 23.4 H Gran % 79.3 H 78.7 H Lymph % (Auto) 10.5 L 10.3 L Gran # 10.4 H 9.5 H Lymph # (Auto) 1.4 L 1.2 L [place] # (Auto) 1.0 H 1.0 H Chloride Carbon Dioxide 21 L Anion Gap 23.0 H Creatinine 2.7 H Glucose 51 L Phosphorus Direct Bilirubin Lactate Dehydrogenase Albumin 3.0 L Albumin/Globulin Ratio 0.9 L Meds: Medications Acetaminophen (Tylenol) 650 mg PO Q6HP PRN PRN Reason: PAIN/FEVER > 101 Last Admin: 10/06/17 06:35 Dose: 650 mg Albuterol Sulfate (Ventolin) 2.5 mg NEB Q2HP PRN PRN Reason: Shortness Of Breath Albuterol/Ipratropium (Duoneb) 3 ml NEB BID [facility] Last Admin: 10/07/17 09:23 Dose: 3 ml Budesonide (Pulmicort) 0.5 mg NEB Q12 [facility] Last Admin: 10/07/17 09:23 Dose: 0.5 mg Famotidine (Pepcid) 20 mg IV HS [facility] Last Admin: 10/06/17 21:40 Dose: 20 mg Heparin Sodium (Porcine) (Heparin) 5,000 unit SQ Q12 [facility] Last Admin: 10/07/17 10:26 Dose: 5,000 unit Hydrocortisone Sodium Succinate (Solu-Cortef) 50 mg IV DAILY [facility] Last Admin: 10/07/17 10:26 Dose: 50 mg Hydromorphone HCl (Dilaudid) 1 mg PO Q4HP PRN PRN Reason: Pain Last Admin: 10/07/17 16:33 Dose: 1 mg Metronidazole (Flagyl) 500 mg in 100 mls @ 100 mls/hr IV Q8H [facility] Last Infusion: 10/07/17 15:49 Dose: Infused Dextrose/Sodium Chloride (Dextrose 5%-Ns Iv Solution) 1,000 mls @ 50 mls/hr IV .Q20H [facility] Last Admin: 10/07/17 06:45 Dose: 50 mls/hr Midodrine (Midodrine Hcl) 15 mg PO TID@0800,1200,1700 [facility] Last Admin: 10/07/17 16:33 Dose: 15 mg Ondansetron HCl (Zofran) 4 mg IV Q4HP PRN PRN Reason: Nausea And Vomiting Sodium Chloride (Saline Flush) 10 ml IV Q8 [facility] Last Admin: 10/07/17 15:12 Dose: Not Given Vancomycin HCl (Vancomycin Oral Lizy) 500 mg PO Q6 [facility] Last Admin: 10/07/17 12:36 Dose: 5 ml - Impressions CT of the chest abdomen and pelvis, images reviewed, discussed with Dr. Tripp formal report is pending. Increased bilateral effusions, increased free fluid in the abdomen No perforation Decompressed small bowel Bilateral smaller pulmonary emboli Medical - PN: A/P - Time Spent With Patient Total time spent is greater than 50% in coordination of care (as documented) at patient's floor/unit and/or counseling patient: Greater than 35 minutes (1) Small bowel obstruction Status: Acute Current Visit: Yes (2) C. difficile colitis Status: Acute Current Visit: Yes (3) Hypotension Status: Acute Current Visit: Yes (4) COPD (chronic obstructive pulmonary disease) Status: Chronic Current Visit: No (5) Coronary artery disease involving [place] coronary artery Status: Chronic Current Visit: No (6) ESRD (end stage renal disease) on dialysis Status: Chronic Current Visit: Yes (7) Pulmonary embolism Status: Acute Current Visit: Yes - Narrative A/P Narrative: 72-year-old female with multiple medical problems, admitted with nausea, vomiting, ongoing loose stools, found to have changes consistent with small bowel obstruction. Small bowel obstruction. Improving/resolved. However, still with persistent intermittent tenderness in both the right upper and left lower quadrants. White count down to 12,[address] scan reassuring for no perforation or abscess. Does have increased intra-abdominal fluid, suspect this is third spacing secondary to her poor nutritional status. No active inflammation of the colon hernandez to suggest ongoing colitis. Plan: Continue gentle hydration; clamp NG tube and try some enteral feeding. If not tolerated, NG can be used to evacuate the abdomen and decompress. With focus on comfort, unlikely she will need surgical intervention. If worsens, unable to take oral intake, then would advocate for more aggressive symptom control. Clostridium difficile colitis. Improving. Suspect that she was undertreated at the skilled facility due to nausea, vomiting and not keeping oral vancomycin down. Plan: Continue with vancomycin, clamping NG tube around administration periods. We'll discontinue IV metronidazole at this point. We'll plan to treat for 10 days of vancomycin from the time of this admission, when drug likely reliably started being delivered to the colon. Day 4/10 of vanco. Pleural effusions and ascites. Suspect these are secondary to nutritional status and third spacing. Lower suspicion for infection. Pulmonary emboli, bilateral. May explain her general malaise and declined today , though unclear how long they may have been there. Very high risk for complications with heparin or other anticoagulant treatment. After informed decision of risks and benefits of treatment, and overall cold to just focus on comfort, not to provide anticoagulation. Hypotension. Patient was treated for shock, felt secondary to her C. difficile last hospitalization, however remained with low blood pressure. Was started on midodrine which was titrated up, has also been on prednisone. Has had her fistula ligated in an attempt to avoid A-V shunting that might affect her blood pressure. Plan: Continue with midodrine; continue steroids (as hydrocortisone 50 mg daily IV) to assure dosing given SBO. COPD. No current exacerbation. Coronary artery disease, quiescent. Given the possibility of having to go to the OR, we will hold her Plavix and ASA. End-stage renal disease, has small pleural effusions, however her volume overload has improved significantly since her last hospitalization. Plan: Hemodialysis MWF and PRN per nephrology. Goals of care: Patient wants to focus on comfort, however hesitant to stop dialysis at this point. We'll conservatively manage her bowel obstruction as above, seeing if it recurs, though at high risk to do so. For now will continue with dialysis, but will not actively treat her pulmonary emboli per her decision, as discussed above. Medical - PN: Qual - VTE Deep Vein Thrombosis/Pulmonary Embolism Present on Admission: No
--- NOTE | 2017-10-07 17:22 | Cat Scan Report ---
CLINICAL INFORMATION: Abdominal pain diminished lung sounds and history of small bowel obstruction COMPARISON: Chest CT from 05/16/2017, abdomen and pelvic CT from 09/08/2017. TECHNIQUE: Enteric contrast was utilized. 80 cc of Isovue-300 were injected intravenously, and 50 seconds later 2.5 mm helical slices were obtained from the lung apices through the subtrochanteric regions of the femurs. Following reconstruction, 2.5 mm sagittal, coronal and axial reformatted images were processed and reviewed at multiple windows and levels. 7 mm MIP reconstructions were obtained through the lungs to optimize nodule detection.The exam was performed using radiation dose optimization techniques including, but not limited to, automated exposure control, adjustment of the mA and/or kV according to patient size and use of iterative reconstruction technique. FINDINGS: Right pleural effusion has increased from the CT less than one month prior and is now moderate-sized. Moderate left pleural effusion is unchanged. There is moderate compressive atelectasis in the inferior right middle and both lower lobes increasing with the effusion. There are moderate patchy groundglass infiltrates throughout both upper lobes which are new. Mediastinal windows show the heart to be minimally enlarged. A small pericardial effusion is unchanged from the remote study five months ago. The thoracic aorta is normal in contour and caliber. Adenopathy, previously seen in the mediastinum, has resolved. Esophagus is unremarkable. NG tube in the gastric body. There are scattered pulmonary emboli which are new: Occlusive in the proximal right upper lobe extension into the anterior segment right upper lobe, occlusive in the right middle extension into the medial and lateral segmental branches and subocclusive in the right lower lobe with extension into the medial, lateral and posterior basilar segments. There is also small saddle embolus in the left upper lobe pulmonary artery at the bifurcation with extension into the apical posterior and anterior segmental branches. No emboli appreciated in the left lower lobe pulmonary arteries. Images through the abdomen show the gallbladder with a phrygian cap. The liver, spleen, pancreas are normal. Marked bilateral renal atrophy compatible with end-stage renal disease. There are Multiple dystrophic parenchymal calcifications or nonobstructing small calculi in the calyces. A 16 mm adenoma left adrenal gland is stable. Right adrenal glands, pancreas and aorta are unremarkable. Stomach, small and large bowel are unremarkable. Interval resolution in small bowel obstruction is appreciated. Moderate ascites in the deep true pelvis, perihepatic and perisplenic region show slight increase in size. There is no free air. Images should the pelvis show hysterectomy changes urinary bladder is unremarkable. Bone windows show only degenerative change IMPRESSION: 1. Scattered pulmonary emboli predominantly in the right pulmonary arteries. There is no evidence of right heart strain or enlarging pulmonary arteries to suggest elevated pulmonary artery pressures. 2. Moderate right pleural effusion increasing since CT less than one month prior. Moderate left pleural effusion unchanged. There is subsegmental atelectasis in both lower lobes right middle lobe. Moderate patchy groundglass infiltrate seen in the upper lobes. New. Consider infection or aspiration 3. NG tube in satisfactory position. Complete resolution in small bowel obstruction is no free air. There is moderate ascites which shows an equivocal increase since the comparison study one month prior. 4. Marked bilateral renal atrophy developed end-stage renal failure 5. 16 mm benign adenoma left adrenal gland - stable Interpreted and Authenticated by: Fortino Mendoza 10/07/17
[2017-10-07] MEDS: FAMOTIDINE/PF 20 MG/2 ML VIAL IV SCH (20:47)
[2017-10-08] MEDS: HYDROmorphone 2 MG TABLET PO PRN ×4 (04:04→23:59)
[2017-10-08 05:10] LABS: Basophils # (Auto) 0 K/mcL (0.0-0.3); Basophils % (Auto) 0.3 % (0.0-2.0); Eosinophils # (Auto) 0.3 K/mcL (0.0-0.7); Eosinophils % (Auto) 2.1 % (0.0-7.0); Granulocytes % (Auto) 71.2 % (38.0-78.0); Lymphocytes % (Auto) 16.4 % (15.5-49.0); Mean Cell Volume 118.2 fL (80.0-100.0); Mean Corpuscular HGB Conc 31.4 g/dL (31.0-36.0); Mean Corpuscular Hemoglobin 37.1 pg (26.0-34.0); Monocytes # (Auto) 1.2 K/mcL (0.1-0.9); Platelet Count 192 K/mcL (140-440); RBC 3.96 M/mcL (4.00-5.20); Red Cell Distribution Width 23.6 % (11.5-14.5)
[2017-10-08 05:25] LABS: ALT/SGPT 15 U/l (0-40); Albumin 3.3 gm/dL (3.2-5.2); Albumin/Globulin Ratio 1.2 (1.0-2.3); Alkaline Phosphatase 69 U/L (39-117); Bilirubin,Direct 0.3 mg/dL (0.0-0.3); Blood Urea Nitrogen 11 mg/dl (8-23); Gamma Glutamyl Transpeptidase 29 U/L (5-36); Uric Acid 5.9 mg/dL (2.5-8.0)
[2017-10-08] MEDS: metroNIDAZOLE 500 MG/100 ML BAG IV SCH ×2 (05:34→15:06)
[2017-10-08] MEDS: 0.9 % SODIUM CHLORIDE 10 ML SYRINGE IV SCH ×2 (05:34→15:09)
--- NOTE | 2017-10-08 06:41 | Nephrology Progress Note ---
Subjective Patient information: Note initiated : 10/08/17 at 6:36 am Naz Joseph is an [id number] female with end stage renal disease on chronic hemodialysis (through left arm AV fistula, at [facility], on TTS, followed by Dr Valentin), chronic anemia due to chronic kidney disease, secondary hyperparathyroidism, history of gout, coronary artery disease, recent septic shock due to Clostridium difficile colitis, admitted on 10/03/17 for partial small-bowel obstruction. Chief Complaint: Nausea and vomiting. Principal diagnosis: End stage renal disease on chronic hemodialysis Interval history: Decided for comfort care. Pertinent ROS: Sleepy. Not in pain. Objective - Vital Signs Vital signs: Vital Signs Temp Pulse Pulse Resp BP BP BP 10/08/17 03:37 97.4 F 79 18 92/68 10/07/17 23:36 73 18 88/71 10/07/17 21:19 77 16 10/07/17 19:32 97.9 F 16 103/70 10/07/17 15:23 97.4 F 16 105/75 10/07/17 11:45 98.5 F 18 96/70 10/07/17 09:28 80 18 10/07/17 07:19 97.1 F 80 14 97/54 Pulse Ox 10/08/17 03:37 91 10/07/17 23:36 90 10/07/17 21:19 96 10/07/17 19:32 94 10/07/17 15:23 94 10/07/17 11:45 93 10/07/17 09:28 10/07/17 07:19 Intake and Output 10/07/17 10/08/17 10/08/17 21:59 05:59 13:59 Intake Total 100 / 100 340 / 340 Output Total 900 / 900 650 / 650 Balance -800 / -800 -310 / -310 Intake: IV 100 / 100 100 / 100 Oral 240 / 240 Output: Gastric Drainage 900 / 900 650 / 650 Right Nare 900 / 900 650 / 650 Other: Stool Size Moderate Stool Color Green Stool Consistency Soft # of times incontinent of 1 Bowels Weight 161 lb Intake & Output: Intake & Output 10/07/17 10/08/17 10/08/17 21:59 05:59 13:59 Intake Total 100 / 100 340 / 340 Output Total 900 / 900 650 / 650 Balance -800 / -800 -310 / -310 Weight 161 lb Intake: IV 100 / 100 100 / 100 Oral 240 / 240 Output: Gastric Drainage 900 / 900 650 / 650 Right Nare 900 / 900 650 / 650 Other: Stool Size Moderate Stool Color Green Stool Consistency Soft # of times incontinent of 1 Bowels - General Appearance General appearance: chronically ill, fatigue, frail EENT: mucous membranes dry Neck: supple Respiratory: clear Cardiology: edema Gastrointestinal: distended Integumentary: ecchymotic Musculoskeletal: no erythema Psychiatric: mood/affect appropriate, cooperative - Lab 10/08/17 04:00 10/08/17 04:00 Most recent lab results Calcium 9.8 mg/dl (8.6-10.4) 10/08/17 04:00 Phosphorus 3.9 mg/dL (2.7-4.5) 10/08/17 04:00 Magnesium 2.0 mg/dL (1.6-2.5) 10/08/17 04:00 Assessment and Plan (1) ESRD (end stage renal disease) on dialysis Hemodialysis cancelled today. The patient decided for comfort care. Nephrology will follow as needed. Status: Chronic Priority: Medium Results - Labs Result diagrams: 10/08/17 04:00 10/08/17 04:00 Abnormal lab results 10/08/17 10/08/17 Range/Units 04:00 04:00 WBC 12.1 H (4.5-11.0) K/mcL RBC 3.96 L (4.00-5.20) M/mcL MCV 118.2 H (80.0-100.0) fL MCH 37.1 H (26.0-34.0) pg RDW 23.6 H (11.5-14.5) % Gran # 8.6 H (1.8-8.0) K/mcL [place] # (Auto) 1.2 H (0.1-0.9) K/mcL Chloride 94 L (96-108) mmol/L Anion Gap 19.0 H (8-16) Creatinine 3.3 H (0.6-1.1) mg/dl Glucose 129 H (70-105) mg/dL AST 52 H (0-37) U/l Lactate Dehydrogenase 272 H (94-250) U/L Short CBC 10/08/17 Range/Units 04:00 WBC 12.1 H (4.5-11.0) K/mcL Hgb 14.7 (12.0-15.0) g/dL Hct 46.8 (36.0-48.0) % Plt Count 192 (140-440) K/mcL BMP 10/08/17 04:00 Sodium 139 Potassium 3.3 Chloride 94 L Carbon Dioxide 26 BUN 11 Creatinine 3.3 H Glucose 129 H Calcium 9.8 Liver Function 10/08/17 Range/Units 04:00 Total Bilirubin 0.8 (0.0-1.0) mg/dL Direct Bilirubin 0.3 (0.0-0.3) mg/dL GGT 29 (5-36) U/L AST 52 H (0-37) U/l ALT 15 (0-40) U/l Alkaline Phosphatase 69 (39-117) U/L Albumin 3.3 (3.2-5.2) gm/dL All other labs normal.
[2017-10-08] MEDS: VANCOMYCIN ORAL SOL 1,000 MG/10 ML BOTTLE PO SCH ×2 (07:15→15:06)
[2017-10-08] MEDS: MIDODRINE 5 MG TABLET PO SCH ×3 (07:19→17:03)
[2017-10-08] MEDS ORDERED: LORazepam 2 MG/ML VIAL IV PRN (10:20)
[2017-10-08] MEDS ORDERED: ONDANSETRON ODT 4 MG TABLET SL PRN ×2 (10:20→17:36)
[2017-10-08] MEDS ORDERED: HYDROmorphone 2 MG/ML VIAL IV PRN (10:20)
[2017-10-08] MEDS: BUDESONIDE 0.5 MG/2 ML AMPUL.NEB NEB SCH (10:25)
[2017-10-08] MEDS: IPRATROPIUM/ALBUTEROL 3 ML AMPUL.NEB NEB SCH (10:25)
--- NOTE | 2017-10-08 10:26 | Internal Med Progress Note ---
Medical - PN: Subj Patient information: Note initiated : 10/08/17 at 10:23 am Service Date, if different from initiated Date: [] Patient: Naz Joseph 72 y/o F admitted on 10/03/17 for Diarrhea/Small Bowel Obstruction. Chief Complaint: f/u SBO Interval history: 10/03 The patient is 72-year-old female with complex past medical history, end-stage renal disease on dialysis, history of hypertension, but most recently being treated with midodrine and prednisone for low blood pressures, coronary artery disease, C. difficile colitis, continuing on vancomycin who presents to the emergency department with progressive weakness, nausea, vomiting, worsening diarrhea after discharge from this facility one week ago. The patient was admitted here on 09/08, being sent over from dialysis due to low blood pressure. Was found to have a partial small bowel obstruction which resolved. Had loose stools which were positive for C. difficile. She required pressor support, though the etiology of her low blood pressure is not entirely clear but did improve after steroid administration. She was also started on oral midodrine. At discharge she was feeling "not too bad". She did okay for a couple of days. Subsequently developed nausea with bilious emesis. No blood. She didn't really have any abdominal pain. Her stools were loose when she left, however they worsened after discharge. They're watery with no blood. Due to overall worsening she presents the ED. Patient denies any fevers or chills. She is feeling short of breath, has a cough with a little bit of sputum production, though appears she does have somewhat of a chronic cough. She's noted some mild lower extremity edema, he is using compression hose. She's had some sharp chest pains with coughing, noted chest tightness/squeezing. He has not felt lightheaded. She has some urine output daily, which is unchanged. Her last hemodialysis was yesterday, which she apparently tolerated well. In the emergency department on abdominal exam she did have some discomfort. Given her history of bowel surgeries (history of gastric bypass with reversal and small bowel resection) films were obtained. Plain film showed evidence of a small bowel obstruction. This was confirmed by CT, though while it was noncontrast had findings concerning for jejunal bowel obstruction. She's continued to have loose stools as noted. She's been taking vancomycin 500 mg 4 times a day. Fidaxomicin was considered, but was not available at this facility. Given her bowel obstruction, nausea, vomiting, ongoing loose stools, she is being admitted to the hospital for further care. 10/04 Seen during the day today, as well as this evening. Had dialysis without problems. Reports she is feeling better than yesterday. No nausea or vomiting. Has not had diarrheal stools today. Ditz passed some flatus. 10/05 Patient seen. Case discussed with Dr. Tripp. Still is some intermittent abdominal Pain, particularly left lower quadrant. Had fever to 100.0 last night , 99.4 midday today. No chills. Was unaware she had low-grade temperature. Cultures drawn from dialysis catheter. Remains without diarrhea. Tolerating vancomycin with NG tube clamped. Has passed flatus. 10/06 Patient seen and examined on rounds. Discussed with Dr. Tripp. Continues to have waxing and waning left lower quadrant and right upper quadrant tenderness. Has had 2 small soft BMs and one smear. Continuing to pass flatus. Has tolerated clamping of NG tube for up to 2 hours. Abdominal films show improvement. However white count is 13,000, and she still has the wax/waning abdominal pain. 10/07 Patient seen on rounds with Dr. Tripp as well as Carmela from case management. She continue to have wax/wane pain in the right upper and left lower regions. New findings on CT today show pulmonary emboli. Also has increasing pleural effusions and free ascites. Some increased right upper quadrant fluid as well. No perforation, her bowels decompressed however. Goals of care discussed with the patient. I outlined what I've seen her medical course with progressive decline in functional and physical status. She' s had recurrent small bowel obstructions, currently receiving oral vasopressors for chronic low blood pressure, had C. difficile colitis. Quite concerned that treatment with heparins were pulmonary emboli would lead to further complications, wanted her to be fully aware of that before any decision was made to start anticoagulation. Based on her course over the last 2 months, my opinion was that she would likely be unable to return to living independently, likely needing almost full-time care. I expressed that I felt her long-term prognosis was limited. After discussion, the patient stated that she has wanted to be kept comfortable. After further clarification, she did not wish to receive heparin for treatment of pulmonary emboli. In regards to her small bowel obstruction she would like to take a conservative approach to see if she could be able to start taking in oral nutrition. She is hesitant to stop dialysis at this point , realizing it may just be prolonging a dying process. Without dialysis, Dr. Bynum felt her prognosis was in the range of 7-10 days. With dialysis, I expect a prognosis of less than 6 months, possibly only a month or less. 10/08 The patient's had further discussion with case management, her nurse last evening, in-depth discussion with her as well as with her clubhouse attendant this morning. She's received information about comfort care. She is decided to stop dialysis. She left, from case management, and I weren't bedside when she let us know she did not want to continue dialysis and fully focus on comfort. She is still having intermittent abdominal discomfort. She's become more weak over the last 24 hours, required to lift to get back into bed from the chair last evening. She would like to have the nasogastric tube discontinued, realizes she may have some recurrent abdominal problems, but would wish to be treated with pain medications, feeling it would be more comfortable to have the NG tube out. She would also like to try to eat some food, realizing it may cause some abdominal symptoms,she may need to be heavily medicated but would like to have some final oral intake. - Constitutional Vitals: Vital Signs Temp Pulse Resp BP Pulse Ox 97.2 F 74 14 98/64 94 10/08/17 08:00 10/08/17 08:00 10/08/17 08:00 10/08/17 08:00 10/08/17 08:00 Period Temp Pulse Resp BP Sys/Millan Pulse Ox Last 24 Hr 97.2 F-98.5 F 73-79 14-18 88-105/64-75 90-96 Intake and Output 10/07/17 10/08/17 10/08/17 21:59 05:59 13:59 Intake Total 100 / 100 340 / 340 Output Total 900 / 900 650 / 650 Balance -800 / -800 -310 / -310 Weight 161 lb General: Laying in bed, awake, alert Respirations: Unlabored Cardiovascular: Regular Abdomen: Soft, mild tenderness Neuro: Alert, oriented to person, place, situation, fully capable of making informed decision to withdraw from dialysis Intake & Output: Intake & Output 10/07/17 10/08/17 10/08/17 21:59 05:59 13:59 Intake Total 100 / 100 340 / 340 Output Total 900 / 900 650 / 650 Balance -800 / -800 -310 / -310 Weight 161 lb Intake: IV 100 / 100 100 / 100 Oral 240 / 240 Output: Gastric Drainage 900 / 900 650 / 650 Right Nare 900 / 900 650 / 650 Other: Stool Size Moderate Stool Color Green Stool Consistency Soft # of times incontinent of 1 Bowels Medical - PN: Obj Da - Labs CBC & Chem 7: 10/08/17 04:00 10/08/17 04:00 Labs: Abnormal Lab Results 10/08/17 10/08/17 10/07/17 04:00 04:00 04:33 WBC 12.1 H RBC 3.96 L MCV 118.2 H MCH 37.1 H RDW 23.6 H Gran % Lymph % (Auto) Gran # 8.6 H Lymph # (Auto) [place] # (Auto) 1.2 H Chloride 94 L 94 L Carbon Dioxide Anion Gap 19.0 H 20.0 H Creatinine 3.3 H 2.4 H Glucose 129 H 134 H Phosphorus Direct Bilirubin 0.4 H AST 52 H Lactate Dehydrogenase 272 H 257 H Albumin 3.1 L 10/07/17 10/06/17 10/06/17 04:33 03:50 03:50 WBC 12.2 H 13.1 H RBC 3.86 L 3.75 L MCV 117.0 H 117.4 H MCH 37.1 H 37.7 H RDW 22.5 H 23.6 H Gran % 79.3 H Lymph % (Auto) 13.9 L 10.5 L Gran # 9.2 H 10.4 H Lymph # (Auto) 1.4 L [place] # (Auto) 1.1 H 1.0 H Chloride 94 L Carbon Dioxide 19 L Anion Gap 25.0 H Creatinine 3.5 H Glucose 64 L Phosphorus 5.3 H Direct Bilirubin AST Lactate Dehydrogenase 274 H Albumin Meds: Medications Acetaminophen (Tylenol) 650 mg PO Q6HP PRN PRN Reason: PAIN/FEVER > 101 Last Admin: 10/06/17 06:35 Dose: 650 mg Albuterol Sulfate (Ventolin) 2.5 mg NEB Q2HP PRN PRN Reason: Shortness Of Breath Albuterol/Ipratropium (Duoneb) 3 ml NEB BID [facility] Last Admin: 10/07/17 21:09 Dose: 3 ml Budesonide (Pulmicort) 0.5 mg NEB Q12 [facility] Last Admin: 10/07/17 21:09 Dose: 0.5 mg Famotidine (Pepcid) 20 mg IV HS [facility] Last Admin: 10/07/17 20:47 Dose: 20 mg Heparin Sodium (Porcine) (Heparin) 5,000 unit SQ Q12 [facility] Last Admin: 10/07/17 20:42 Dose: 5,000 unit Hydrocortisone Sodium Succinate (Solu-Cortef) 50 mg IV DAILY [facility] Last Admin: 10/07/17 10:26 Dose: 50 mg Hydromorphone HCl (Dilaudid) 1 mg PO Q4HP PRN PRN Reason: Pain Last Admin: 10/08/17 04:04 Dose: 1 mg Metronidazole (Flagyl) 500 mg in 100 mls @ 100 mls/hr IV Q8H [facility] Last Admin: 10/08/17 05:34 Dose: 100 mls/hr Dextrose/Sodium Chloride (Dextrose 5%-Ns Iv Solution) 1,000 mls @ 50 mls/hr IV .Q20H [facility] Last Admin: 10/07/17 23:46 Dose: Not Given Midodrine (Midodrine Hcl) 15 mg PO TID@0800,1200,1700 [facility] Last Admin: 10/08/17 07:19 Dose: 15 mg Ondansetron HCl (Zofran) 4 mg IV Q4HP PRN PRN Reason: Nausea And Vomiting Sodium Chloride (Saline Flush) 10 ml IV Q8 [facility] Last Admin: 10/08/17 05:34 Dose: 10 ml Vancomycin HCl (Vancomycin Oral Lizy) 500 mg PO Q6 [facility] Last Admin: 10/08/17 07:15 Dose: 5 ml Medical - PN: A/P - Time Spent With Patient Total time spent is greater than 50% in coordination of care (as documented) at patient's floor/unit and/or counseling patient: Greater than 35 minutes (1) Small bowel obstruction Status: Acute Current Visit: Yes (2) C. difficile colitis Status: Acute Current Visit: Yes (3) Hypotension Status: Acute Current Visit: Yes (4) COPD (chronic obstructive pulmonary disease) Status: Chronic Current Visit: No (5) Coronary artery disease involving osage coronary artery Status: Chronic Current Visit: No (6) ESRD (end stage renal disease) on dialysis Status: Chronic Current Visit: Yes (7) Pulmonary embolism Status: Acute Current Visit: Yes - Narrative A/P Narrative: 72-year-old female with multiple medical problems, admitted with nausea, vomiting, ongoing loose stools, found to have changes consistent with small bowel obstruction. Small bowel obstruction. Improving/resolved. Though on 10/08, some more frequent pain when NGT is clamped, high risk for recurrence. Given focus on comfort, will discontinue NGT per her request and use pain medications for comfort. Diet ad jaron, she knows this may cause abdominal pain, but would like to eat something for pleasure and knows she may need pain meds. Clostridium difficile colitis. Improving. Do not think this played a role in the SBO. Stopping active Rx given move to comfort. Pleural effusions and ascites. Suspect these are secondary to nutritional status and third spacing. Lower suspicion for infection. Pulmonary emboli, bilateral. May contribute to her general malaise and decline. After informed decision of risks and benefits of treatment, and overall goal to just focus on comfort, have not to provided anticoagulation. Hypotension. Chronic since last hospitalization. Given comfort goals, stopping midodrine and steroids. COPD. No current exacerbation. Coronary artery disease, quiescent. End-stage renal disease. Stopping hemodialysis. Goals of care: Patient wants to focus on comfort, now wants to stop HD. Given likely recurring SBO, prognosis guarded. Will institute comfort treatment in hospital. Medical - PN: Qual - VTE Deep Vein Thrombosis/Pulmonary Embolism Present on Admission: No
[2017-10-08] MEDS ORDERED: 0.9 % SODIUM CHLORIDE 10 ML SYRINGE IV SCH (14:00)
[2017-10-08] MEDS: HEPARIN 5,000 UNIT/ML VIAL SQ SCH (15:05)
[2017-10-08] MEDS: HYDROCORTISONE SOD SUCC 100 MG VIAL IV SCH (15:06)
[2017-10-08] MEDS ORDERED: ONDANSETRON 4 MG/2 ML VIAL IV PRN (17:36)
[2017-10-08] MEDS ORDERED: LACTOPEROXI/GLUC OXID/POT THIO 1 EACH GEL..EA. TOPICAL PRN (17:36)
[2017-10-08] MEDS ORDERED: ACETAMINOPHEN 325 MG TABLET PO PRN (17:36)
[2017-10-08] MEDS: LORazepam 2 MG/ML VIAL IV PRN ×2 (19:16→23:58)
[2017-10-09] MEDS: 0.9 % SODIUM CHLORIDE 10 ML SYRINGE IV SCH ×4 (05:17→21:26)
[2017-10-09] MEDS: DOCUSATE SODIUM 100 MG CAPSULE PO SCH ×3 (10:44→21:16)
--- NOTE | 2017-10-09 16:27 | Internal Med Progress Note ---
Medical - PN: Subj Patient information: Note initiated : 10/09/17 at 4:24 pm Service Date, if different from initiated Date: [] Patient: Naz Joseph 72 y/o F admitted on 10/03/17 for Diarrhea/Small Bowel Obstruction. Chief Complaint: [] Interval history: 10/03 The patient is 72-year-old female with complex past medical history, end-stage renal disease on dialysis, history of hypertension, but most recently being treated with midodrine and prednisone for low blood pressures, coronary artery disease, C. difficile colitis, continuing on vancomycin who presents to the emergency department with progressive weakness, nausea, vomiting, worsening diarrhea after discharge from this facility one week ago. The patient was admitted here on 09/08, being sent over from dialysis due to low blood pressure. Was found to have a partial small bowel obstruction which resolved. Had loose stools which were positive for C. difficile. She required pressor support, though the etiology of her low blood pressure is not entirely clear but did improve after steroid administration. She was also started on oral midodrine. At discharge she was feeling "not too bad". She did okay for a couple of days. Subsequently developed nausea with bilious emesis. No blood. She didn't really have any abdominal pain. Her stools were loose when she left, however they worsened after discharge. They're watery with no blood. Due to overall worsening she presents the ED. Patient denies any fevers or chills. She is feeling short of breath, has a cough with a little bit of sputum production, though appears she does have somewhat of a chronic cough. She's noted some mild lower extremity edema, he is using compression hose. She's had some sharp chest pains with coughing, noted chest tightness/squeezing. He has not felt lightheaded. She has some urine output daily, which is unchanged. Her last hemodialysis was yesterday, which she apparently tolerated well. In the emergency department on abdominal exam she did have some discomfort. Given her history of bowel surgeries (history of gastric bypass with reversal and small bowel resection) films were obtained. Plain film showed evidence of a small bowel obstruction. This was confirmed by CT, though while it was noncontrast had findings concerning for jejunal bowel obstruction. She's continued to have loose stools as noted. She's been taking vancomycin 500 mg 4 times a day. Fidaxomicin was considered, but was not available at this facility. Given her bowel obstruction, nausea, vomiting, ongoing loose stools, she is being admitted to the hospital for further care. 10/04 Seen during the day today, as well as this evening. Had dialysis without problems. Reports she is feeling better than yesterday. No nausea or vomiting. Has not had diarrheal stools today. Ditz passed some flatus. 10/05 Patient seen. Case discussed with Dr. Tripp. Still is some intermittent abdominal Pain, particularly left lower quadrant. Had fever to 100.0 last night , 99.4 midday today. No chills. Was unaware she had low-grade temperature. Cultures drawn from dialysis catheter. Remains without diarrhea. Tolerating vancomycin with NG tube clamped. Has passed flatus. 10/06 Patient seen and examined on rounds. Discussed with Dr. Tripp. Continues to have waxing and waning left lower quadrant and right upper quadrant tenderness. Has had 2 small soft BMs and one smear. Continuing to pass flatus. Has tolerated clamping of NG tube for up to 2 hours. Abdominal films show improvement. However white count is 13,000, and she still has the wax/waning abdominal pain. 10/07 Patient seen on rounds with Dr. Tripp as well as Carmela from case management. She continue to have wax/wane pain in the right upper and left lower regions. New findings on CT today show pulmonary emboli. Also has increasing pleural effusions and free ascites. Some increased right upper quadrant fluid as well. No perforation, her bowels decompressed however. Goals of care discussed with the patient. I outlined what I've seen her medical course with progressive decline in functional and physical status. She' s had recurrent small bowel obstructions, currently receiving oral vasopressors for chronic low blood pressure, had C. difficile colitis. Quite concerned that treatment with heparins were pulmonary emboli would lead to further complications, wanted her to be fully aware of that before any decision was made to start anticoagulation. Based on her course over the last 2 months, my opinion was that she would likely be unable to return to living independently, likely needing almost full-time care. I expressed that I felt her long-term prognosis was limited. After discussion, the patient stated that she has wanted to be kept comfortable. After further clarification, she did not wish to receive heparin for treatment of pulmonary emboli. In regards to her small bowel obstruction she would like to take a conservative approach to see if she could be able to start taking in oral nutrition. She is hesitant to stop dialysis at this point , realizing it may just be prolonging a dying process. Without dialysis, Dr. Bynum felt her prognosis was in the range of 7-10 days. With dialysis, I expect a prognosis of less than 6 months, possibly only a month or less. 10/08 The patient's had further discussion with case management, her nurse last evening, in-depth discussion with her as well as with her table games shift manager this morning. She's received information about comfort care. She is decided to stop dialysis. She left, from case management, and I weren't bedside when she let us know she did not want to continue dialysis and fully focus on comfort. She is still having intermittent abdominal discomfort. She's become more weak over the last 24 hours, required to lift to get back into bed from the chair last evening. She would like to have the nasogastric tube discontinued, realizes she may have some recurrent abdominal problems, but would wish to be treated with pain medications, feeling it would be more comfortable to have the NG tube out. She would also like to try to eat some food, realizing it may cause some abdominal symptoms,she may need to be heavily medicated but would like to have some final oral intake. 10/09-patient on comfort care. Hemodialysis continued. On as needed pain medications. Patient appears sedated but no anxiety discomfort or concerns per staff. Continue palliation. imminent in the next 2 weeks - Constitutional Vitals: Vital Signs Temp Pulse Resp BP Pulse Ox 97.4 F 64 14 105/75 84 L 10/08/17 16:00 10/09/17 00:41 10/09/17 00:41 10/08/17 16:00 10/09/17 00:41 Period Temp Pulse Resp BP Sys/Millan Pulse Ox Last 24 Hr 64 14 84 Intake and Output 10/09/17 10/09/17 10/09/17 05:59 13:59 21:59 Intake Total 1000 / 1000 Balance 1000 / 1000 Intake & Output: Intake & Output 10/09/17 10/09/17 10/09/17 05:59 13:59 21:59 Intake Total 1000 / 1000 Balance 1000 / 1000 Intake: IV 1000 / 1000 General appearance: no acute distress Exam: resting comfortably No anxiety Further physical exam deferred in light of comfort Medical - PN: Obj Da - Labs CBC & Chem 7: 10/08/17 04:00 10/08/17 04:00 Labs: Abnormal Lab Results 10/08/17 10/08/17 10/07/17 04:00 04:00 04:33 WBC 12.1 H RBC 3.96 L MCV 118.2 H MCH 37.1 H RDW 23.6 H Lymph % (Auto) Gran # 8.6 H [place] # (Auto) 1.2 H Chloride 94 L 94 L Anion Gap 19.0 H 20.0 H Creatinine 3.3 H 2.4 H Glucose 129 H 134 H Direct Bilirubin 0.4 H AST 52 H Lactate Dehydrogenase 272 H 257 H Albumin 3.1 L 10/07/17 04:33 WBC 12.2 H RBC 3.86 L MCV 117.0 H MCH 37.1 H RDW 22.5 H Lymph % (Auto) 13.9 L Gran # 9.2 H [place] # (Auto) 1.1 H Chloride Anion Gap Creatinine Glucose Direct Bilirubin AST Lactate Dehydrogenase Albumin Meds: Medications Acetaminophen (Tylenol) 650 mg PO Q6HP PRN PRN Reason: PAIN/FEVER > 101 Docusate Sodium (Colace) 100 mg PO BID BLAZE Last Admin: 10/09/17 10:44 Dose: Not Given Glucose Oxid/Lactoperoxid/Muramidas (Biotene) 1 each TOPICAL PRN PRN PRN Reason: Dry Mouth Hydromorphone HCl (Dilaudid) 1 mg PO Q4HP PRN PRN Reason: Pain Last Admin: 10/08/17 23:59 Dose: 1 mg Hydromorphone HCl (Dilaudid) 0 mg IV Q2HP PRN PRN Reason: Pain Lorazepam (Ativan) 0 mg IV Q1HP PRN; Protocol PRN Reason: ANXIETY/SEDATION Last Admin: 10/08/17 23:58 Dose: 1 mg Morphine Sulfate (Morphine) 4 mg NEB Q4HP PRN PRN Reason: Shortness Of Breath Ondansetron HCl (Zofran) 4 mg IV Q4HP PRN PRN Reason: Nausea And Vomiting Ondansetron HCl (Zofran Odt) 4 mg SL Q4HP PRN PRN Reason: Nausea And Vomiting Sodium Chloride (Saline Flush) 10 ml IV Q8 BLAZE Last Admin: 10/09/17 05:17 Dose: 10 ml Medical - PN: A/P - Time Spent With Patient Total time spent is greater than 50% in coordination of care (as documented) at patient's floor/unit and/or counseling patient: 15 - 24 minutes - Narrative A/P Narrative: 72-year-old female with multiple medical problems, admitted with nausea, vomiting, ongoing loose stools, found to have changes consistent with small bowel obstruction. * end-of-life palliation-continue all measures directed towards pain and symptom relief. On comfort care measures * Small bowel obstruction. Improving/resolved. Though on 10/08, some more frequent pain when NGT is clamped, high risk for recurrence. Given focus on comfort, will discontinue NGT per her request and use pain medications for comfort. Diet ad jaron, she knows this may cause abdominal pain, but would like to eat something for pleasure and knows she may need pain meds. * Clostridium difficile colitis. Improving. active treatment discontinued * Pleural effusions and ascites. * ESRD-ST discontinued in light of comfort * Pulmonary emboli, bilateral. not on anticoagulation as per patient and family request. * Hypotension. no further treatmentin light of comfort * COPD. No current exacerbation. * CAD plan * continue aggressive pain and symptom management * All treatment is directed towards palliation and comfort Medical - PN: Qual - VTE Deep Vein Thrombosis/Pulmonary Embolism Present on Admission: No
[2017-10-09] MEDS: HYDROmorphone 2 MG/ML VIAL IV PRN (19:30)
[2017-10-09] MEDS: LORazepam 2 MG/ML VIAL IV PRN (19:30)
[2017-10-10] MEDS: 0.9 % SODIUM CHLORIDE 10 ML SYRINGE IV SCH (05:17)
--- NOTE | 2017-10-10 09:08 | Discharge Summary ---
Medical - DS: Prov Patient information: Note initiated : 10/10/17 at 9:05 am Service Date, if different from initiated Date: [] Patient: Naz Joseph 72 y/o F admitted on 10/03/17 for Diarrhea/Small Bowel Obstruction. Chief Complaint: [] Date of admission: 10/03/17 16:40 Discharge date: 10/10/17 Primary care physician: Maribel Jaimes Medical - DS: Meds - Discharge Medications Prescriptions: HYDROmorphone HCL [Dilaudid] 1 mg PO Q4HP PRN #30 liquid PRN Reason: Pain LORazepam [Lorazepam Intensol] 2 mg PO Q4H PRN #30 ml PRN Reason: Anxiety Scopolamine [Transderm-Scop] 1 each TD Q72 #7 patch.td72 Active and Home Medications: Home Medications Ipratropium/Albuterol [Duoneb] 3 ml NEB BID ampul.neb 05/20/17 [Rx Confirmed Last Taken 10/03/17] Acetaminophen [Tylenol] 650 mg PO Q4-6HP PRN tab 05/28/17 [Rx Confirmed Last Taken 10/02/17] cyanocobalamin (vit B-12) ER 1,000 mcg tablet,extended release 1,000 mcg PO QDAY #30 tab 09/27/17 [Rx Confirmed 10/04/17 Last Taken 10/03/17] HYDROmorphone HCL [Dilaudid] 1 mg PO Q4HP PRN #30 liquid 10/09/17 [Rx Last Taken Unknown] LORazepam [Lorazepam Intensol] 2 mg PO Q4H PRN #30 ml 10/09/17 [Rx Last Taken Unknown] Scopolamine [Transderm-Scop] 1 each TD Q72 #7 patch.td72 10/09/17 [Rx Last Taken Unknown] Medical - DS: Hosp Hospital course: DISCHARGE DIAGNOSIS * end-of-life palliation-continue all measures directed towards pain and symptom relief. [facility] * Small bowel obstruction. stable. Diet per comfort * Clostridium difficile colitis. treatment discontinued in light of comfort measures. * Pleural effusions and ascites. * ESRD-hemodialysis discontinued in light of comfort * Pulmonary emboli, bilateral. not on anticoagulation as per patient and family request for comfort/palliation. * Hypotension * COPD. * CAD BRIEF HOSPITAL COURSE 10/03 The patient is 72-year-old female with complex past medical history, end-stage renal disease on dialysis, history of hypertension, but most recently being treated with midodrine and prednisone for low blood pressures, coronary artery disease, C. difficile colitis, continuing on vancomycin who presents to the emergency department with progressive weakness, nausea, vomiting, worsening diarrhea after discharge from this facility one week ago. The patient was admitted here on 09/08, being sent over from dialysis due to low blood pressure. Was found to have a partial small bowel obstruction which resolved. Had loose stools which were positive for C. difficile. She required pressor support, though the etiology of her low blood pressure is not entirely clear but did improve after steroid administration. She was also started on oral midodrine. At discharge she was feeling "not too bad". She did okay for a couple of days. Subsequently developed nausea with bilious emesis. No blood. She didn't really have any abdominal pain. Her stools were loose when she left, however they worsened after discharge. They're watery with no blood. Due to overall worsening she presents the ED. Patient denies any fevers or chills. She is feeling short of breath, has a cough with a little bit of sputum production, though appears she does have somewhat of a chronic cough. She's noted some mild lower extremity edema, he is using compression hose. She's had some sharp chest pains with coughing, noted chest tightness/squeezing. He has not felt lightheaded. She has some urine output daily, which is unchanged. Her last hemodialysis was yesterday, which she apparently tolerated well. In the emergency department on abdominal exam she did have some discomfort. Given her history of bowel surgeries (history of gastric bypass with reversal and small bowel resection) films were obtained. Plain film showed evidence of a small bowel obstruction. This was confirmed by CT, though while it was noncontrast had findings concerning for jejunal bowel obstruction. She's continued to have loose stools as noted. She's been taking vancomycin 500 mg 4 times a day. Fidaxomicin was considered, but was not available at this facility. Given her bowel obstruction, nausea, vomiting, ongoing loose stools, she is being admitted to the hospital for further care. 10/04 Seen during the day today, as well as this evening. Had dialysis without problems. Reports she is feeling better than yesterday. No nausea or vomiting. Has not had diarrheal stools today. Mary passed some flatus. 10/05 Patient seen. Case discussed with Dr. Tripp. Still is some intermittent abdominal Pain, particularly left lower quadrant. Had fever to 100.0 last night , 99.4 midday today. No chills. Was unaware she had low-grade temperature. Cultures drawn from dialysis catheter. Remains without diarrhea. Tolerating vancomycin with NG tube clamped. Has passed flatus. 10/06 Patient seen and examined on rounds. Discussed with Dr. Tripp. Continues to have waxing and waning left lower quadrant and right upper quadrant tenderness. Has had 2 small soft BMs and one smear. Continuing to pass flatus. Has tolerated clamping of NG tube for up to 2 hours. Abdominal films show improvement. However white count is 13,000, and she still has the wax/waning abdominal pain. 10/07 Patient seen on rounds with Dr. Tripp as well as Carmela from case management. She continue to have wax/wane pain in the right upper and left lower regions. New findings on CT today show pulmonary emboli. Also has increasing pleural effusions and free ascites. Some increased right upper quadrant fluid as well. No perforation, her bowels decompressed however. Goals of care discussed with the patient. I outlined what I've seen her medical course with progressive decline in functional and physical status. She' s had recurrent small bowel obstructions, currently receiving oral vasopressors for chronic low blood pressure, had C. difficile colitis. Quite concerned that treatment with heparins were pulmonary emboli would lead to further complications, wanted her to be fully aware of that before any decision was made to start anticoagulation. Based on her course over the last 2 months, my opinion was that she would likely be unable to return to living independently, likely needing almost full-time care. I expressed that I felt her long-term prognosis was limited. After discussion, the patient stated that she has wanted to be kept comfortable. After further clarification, she did not wish to receive heparin for treatment of pulmonary emboli. In regards to her small bowel obstruction she would like to take a conservative approach to see if she could be able to start taking in oral nutrition. She is hesitant to stop dialysis at this point , realizing it may just be prolonging a dying process. Without dialysis, Dr. Bynum felt her prognosis was in the range of 7-10 days. With dialysis, I expect a prognosis of less than 6 months, possibly only a month or less. 10/08 The patient's had further discussion with case management, her nurse last evening, in-depth discussion with her as well as with her sociology research assistant this morning. She's received information about comfort care. She is decided to stop dialysis. She left, from case management, and I weren't bedside when she let us know she did not want to continue dialysis and fully focus on comfort. She is still having intermittent abdominal discomfort. She's become more weak over the last 24 hours, required to lift to get back into bed from the chair last evening. She would like to have the nasogastric tube discontinued, realizes she may have some recurrent abdominal problems, but would wish to be treated with pain medications, feeling it would be more comfortable to have the NG tube out. She would also like to try to eat some food, realizing it may cause some abdominal symptoms,she may need to be heavily medicated but would like to have some final oral intake. 10/09-patient on comfort care. Hemodialysis continued. On as needed pain medications. Patient appears sedated but no anxiety discomfort or concerns per staff. Continue palliation. imminent in the next 2 weeks 10/10-patient discharging with hospice at [facility] assisted living. Expected demise within 2 weeks. Medications and instructions to continue as below for palliation/end-of-life care Discharge diagnosis: . - Time Spent with Patient Total time spent providing and/or coordinating discharge services: Greater than 30 minutes Medical - DS: Exam - Constitutional Vitals: Intake and Output 10/09/17 10/10/17 10/10/17 21:59 05:59 13:59 Intake Total 100 / 100 Balance 100 / 100 Intake: Oral 100 / 100 Other: Meal Dinner Percent of Meal Consumed 75% Feeding Ability Assist with Tray Set Up Stool Size Moderate Stool Color Green Stool Consistency Loose # Bowel Movements 1 # of times incontinent of 1 Bowels Medical - DS: Data Labs on day of discharge: Preliminary micro results at discharge 10/05/17 10:15 Blood Culture - Preliminary Blood 10/05/17 10:23 Blood Culture - Preliminary Blood Medical - DS: A/P - Patient/Caregiver Discharge Instructions Activity: other (activity per comfort) Diet: Regular Diet (diet per comfort) Additional Instructions: continue palliation for end of life care Aggressive pain and symptom management Diet and activity per comfort Expected within 2 weeks in light of ESRD off hemodialysis Prescriptions: HYDROmorphone HCL [Dilaudid] 1 mg PO Q4HP PRN #30 liquid PRN Reason: Pain LORazepam [Lorazepam Intensol] 2 mg PO Q4H PRN #30 ml PRN Reason: Anxiety Scopolamine [Transderm-Scop] 1 each TD Q72 #7 patch.td72 - Follow up Plan Follow up with: Maribel Jaimes, ALEXANDR, [employer]ING [employer]ORATORY TECHNICIAN [Primary Care Provider] - Disposition: Hospice - Medical Facility Prognosis: Fair Rehab Potential: Critical I certify that the patient requires SNF services: Yes Overall status at discharge: patient is not back to baseline Medical - DS: Qual - VTE Deep Vein Thrombosis/Pulmonary Embolism Present on Admission: No
[2017-10-10] MEDS: LORazepam 2 MG/ML VIAL IV PRN (09:45)
[2017-10-10] MEDS: HYDROmorphone 2 MG/ML VIAL IV PRN (09:45)
[2017-10-10] MEDS: DOCUSATE SODIUM 100 MG CAPSULE PO SCH (09:59)
== END 2017-10-10 11:05 | disposition hospice, inpatient (51) | DRG 388 ==
LOC: ED 10:39 → ICU 16:40 → SUATTDRO 16:40 → ICU 16:57
PROVIDERS: ADMIT Internal Medicine; ATTEND Internal Medicine